=== PATIENT | female | born 1975 ===

== ENCOUNTER → 2019-12-10 07:26 | Outpatient (BNVA) | payer OTHER, SELFPAY | PROVIDERS: PCP Internal Medicine; Referring Provider Internal Medicine; Visit Provider Student in an Organized Health Care Education/Training Program | DX: M79.7 Fibromyalgia (principal) | CPT/HCPCS: 99214 ==

== ENCOUNTER 2020-01-01 17:05 | Emergency (ER) | payer OTHER, SELFPAY ==
[2020-01-01 17:21] VITALS: BP 151/66; PULSE 128; RESP 20; TEMP 36.9; O2SAT 98
--- NOTE | 2020-01-01 17:27 | ED.GENADULT ---
HPI - General Adult General Chief complaint: General Medical Stated complaint: Multiple complaints Time Seen by Provider: 01/01/20 17:18 Source: patient Mode of arrival: ambulatory Limitations: no limitations History of Present Illness HPI narrative: Patient comes to emergency room complaining of not feeling well since yesterday, nonspecific. This morning, patient had 7 episodes of diarrhea, no vomiting, patient feeling nauseous, no abdominal pain. Patient denies fever, no cough. MD complaint: Diarrhea Related Data Home Medications Medication Instructions Recorded Confirmed albuterol sulfate 2.5 mg INHALATION QID 12/10/19 12/31/19 artifi.tears(hypromellose)(PF) 0.3 1 drp OPHTHALMIC-RIGHT Q4-6H PRN 12/10/19 12/31/19 % eye drops ascorbate calcium (vitamin C) 500 500 mg PO DAILY 12/10/19 12/31/19 mg tablet canagliflozin 300 mg tablet 300 mg PO DAILY 12/10/19 12/31/19 cetirizine 10 mg capsule 10 mg PO DAILY 12/10/19 12/31/19 diclofenac sodium 75 mg 75 mg PO BID 12/10/19 12/31/19 tablet,delayed release docusate sodium 100 mg capsule 100 mg PO DAILY 12/10/19 12/31/19 hydrochlorothiazide 25 mg tablet 25 mg PO DAILY 12/10/19 12/31/19 lisinopril 5 mg tablet 5 mg PO DAILY 12/10/19 12/31/19 nortriptyline 10 mg capsule 10 mg PO BEDTIME 12/10/19 12/31/19 pantoprazole 40 mg tablet,delayed 40 mg PO DAILY 12/10/19 12/31/19 release sennosides 8.6 mg capsule 8.6 mg PO BEDTIME 12/10/19 12/31/19 topiramate 100 mg tablet 100 mg PO BID 12/10/19 12/31/19 trazodone 100 mg tablet 100 mg PO BEDTIME PRN 12/10/19 12/31/19 buspirone 1 tab PO TID 12/31/19 12/31/19 cholecalciferol (vitamin D3) 1 cap PO DAILY 12/31/19 12/31/19 citalopram 1 tab PO DAILY 12/31/19 12/31/19 citalopram 1 tab PO DAILY 12/31/19 12/31/19 fluticasone propionate 1 spray INTRANASAL 12/31/19 hydroxyzine HCl 1 - 2 tab PO QID 12/31/19 12/31/19 insulin lispro [Admelog U-100 0 - 100 unit SUBCUT DAILY 12/31/19 12/31/19 Insulin lispro] insulin regular hum U-500 conc 200 unit SUBCUT DAILY 12/31/19 12/31/19 [Humulin R U-500 (Conc) Insulin] montelukast 1 tab PO DAILY 12/31/19 12/31/19 oxycodone-acetaminophen 1 tab PO Q12H PRN 12/31/19 12/31/19 thiamine HCl (vitamin B1) 1 tab PO DAILY 12/31/19 12/31/19 vitamin A 1 cap PO DAILY 12/31/19 12/31/19 Previous Rx's Medication Instructions Recorded dulaglutide 1.5 mg/0.5 mL 1.5 mg SUBCUT QWEEK 30 Days #2.5 ml 12/22/19 subcutaneous pen injector loperamide [Anti-Diarrheal 2 mg PO Q6H PRN #10 cap 01/01/20 (loperamide)] ondansetron HCl [Zofran] 4 mg PO Q8H PRN #10 tab 01/01/20 Allergies Allergy/AdvReac Type Severity Reaction Status Date / Time adhesive tape [ADHESIVE TAPE] Allergy Intermediate RASH Verified 01/01/20 18:11 pioglitazone [From ACTOS] Allergy Intermediate VOMITING,ITCHY, Verified 01/01/20 18:11 pruritis, rash Review of Systems Review of Systems: Constitutional : No Weight loss, No Fever, complaining of chills, fatigue ENT/Mouth : No Hearing loss, No Ear Pain, No Nasal Congestion, No Sinus Pain, No Hoarseness, No sore throat, No Rhinorrhea, No Swallowing Difficulty Eyes: No Eye Pain, No Swelling, No Redness, No Foreign Body, No Discharge, No Vision Changes Cardiovascular : No Chest Pain, No SOB, No Dyspnea on Exertion, No Orthopnea, No Edema, No Palpitations Respiratory : No Cough, No Sputum, No Wheezing, No Smoke Exposure, No Dyspnea Gastrointestinal : Patient complaining of nausea, diarrhea, no vomiting. Denies constipation and denies abdominal Pain, No Hematochezia, No Melena Genitourinary : no irregular bleeding, No Dysuria, No Urinary Frequency, No Hematuria, No Urinary Incontinence, No Urgency, No Flank Pain, No Urinary Flow Changes, No Hesitancy Musculoskeletal : No joint pain, No Myalgias, No Joint Swelling Skin : No Skin Lesions, No rash Neuro : No Weakness, No Numbness, No Paresthesias, No Loss of Consciousness, No Dizziness, No Headache Psych : No Anxiety/Panic, No Depression, No SI/HI/AH/VH, No Social Issues, Heme/Lymph: No Bruising, No Bleeding,No Lymphadenopathy Endocrine : No Polyuria, No Polydipsia, No Temperature Intolerance [facility] Past Medical History Medical History Anxiety and depression Asthma Back pain Diabetes mellitus Fibromyalgia GERD (gastroesophageal reflux disease) History of Graves' disease Hyperlipidemia Hypertension Iron (Fe) deficiency anemia Lumbar degenerative disc disease Polyarthralgia Surgical History H/O gastric bypass History of carpal tunnel surgery of left wrist History of cataract extraction History of lumpectomy of left breast Hx laparoscopic cholecystectomy Hx of section Hx of colonoscopy Hx of esophagogastroduodenoscopy Social History Social History (Updated 12/10/19 @ 07:35 by Billy Fabian LPN) Household Members: Family Housing: House Alcohol intake: never Smoking Status: Never smoker Use of substances other than those prescribed or required for medical reasons: No Advance Directives: No Advance Directives Information Provided: No Physical Exam Vital Signs: Vital Signs: Last Vital Signs Temp 98.5 F 01/01/20 17:34 Pulse 120 H 01/01/20 17:34 Resp 18 01/01/20 17:34 BP 151/66 H 01/01/20 17:34 Pulse Ox 96 01/01/20 17:34 Body Mass Index 38.2 Appearance: Alert. Oriented X3. No acute distress. Patient has an insulin pump in place, current glucose 263 Eyes: Pupils equal, round and reactive to light. ENT: Pharynx normal. Neck: Normal inspection. Neck supple. No lymph nodes noted. No crepitus CVS: Normal heart rate and rhythm. Pulses normal. Normal S1 and S2 Respiratory: No respiratory distress. Breath sounds normal. No Wheezing. No rales Abdomen: Soft and nontender. No rigidity. No distention. good BS x4 Skin: Skin warm and dry. Normal skin color. Normal skin turgor. Extremities: No lower extremity edema. No lower extremity edema. No Lacerations. No Rash Neuro: Oriented X 3. No motor deficit. No sensory deficit. Moving all extermities. No slurred speech. Course Course Course Narrative: I discussed the labs with the patient, patient states she has no abdominal pain . Since she got here, she has not been nauseous, and has not had any diarrheal episodes. Patient was tested for COVID-19, the results will be available within 3 days. Patient's white blood cell count likely secondary to diarrheal illness, likely a viral infection. At this time, appendicitis and cholecystitis are not suspected, patient has no abdominal pain Medical Decision Making Lab Data Result diagrams: 01/01/20 17:47 01/01/20 18:13 Labs: Lab Results 01/01/20 01/01/20 01/01/20 Range/Units 17:47 17:47 18:03 WBC 14.4 H (4.8-10.8) X10*3/uL RBC 4.67 (4.20-5.50) X10*6/uL Hgb 12.8 (12.0-16.0) g/dl Hct 38.8 (37-47) % MCV 83.1 (80-98) fL MCH 27.4 (27.0-33.0) pg MCHC 33.0 (31.0-35.0) g/dl RDW 13.1 (11.0-16.0) % Plt Count 246 (160-400) X10*3/uL MPV 9.8 (9.4-12.3) fL Immature Gran % (Auto) 0.6 H (0.0-0.4) % Neut % (Auto) 90.4 H (45-73) % Lymph % (Auto) 4.2 L (20-40) % [place] % (Auto) 4.6 (2-11) % Eos % (Auto) 0.1 (0-4) % Baso % (Auto) 0.1 (0-2) % Lymph # (Auto) 0.6 L (1.2-4.9) X10*3/uL [place] # (Auto) 0.7 (0.1-1.2) X10*3/uL Eos # (Auto) 0.0 (0.0-0.4) X10*3/uL Baso # (Auto) 0.0 (0.0-0.2) X10*3/uL Abs Immat Gran (auto) 0.08 H (0.00-0.03) X10*3/uL Absolute Neuts (auto) 13.0 H (2.0-8.3) X10*3/uL Absolute Nucleated RBC 0.000 (0.0-0.012) X10*3/uL Nucleated RBC % (auto) 0.0 (0.0-0.2) /100WBC Smear Tech's Comments VERIFIED Sodium Cancelled Potassium Cancelled Chloride Cancelled Carbon Dioxide Cancelled Anion Gap Cancelled BUN Cancelled Creatinine Cancelled Estim Creat Clear Calc Cancelled Estimated GFR Cancelled Random Glucose Cancelled Calcium Cancelled Total Bilirubin Cancelled Direct Bilirubin Cancelled AST Cancelled ALT Cancelled Alkaline Phosphatase Cancelled Total Protein Cancelled Albumin Cancelled Lipase Cancelled Urine Color YELLOW Urine Appearance CLOUDY Urine pH 6.0 (5.0-8.0) Ur Specific [place] >= 1.030 H (1.005-1.025) Urine Protein 1+ H (NEG-TRACE) MG/DL Urine Glucose (UA) 250 H (NEG) MG/DL Urine Ketones 5 (NEG) MG/DL Urine Blood TRACE (NEG) Urine Nitrite NEG (NEG) Ur Leukocyte Esterase NEG (NEG) Urine RBC 0-2 (0) /HPF Urine WBC 0 (0-4) /HPF Ur Squamous Epith Cells 1+ /LPF Amorphous Sediment 4+ /LPF Urine Bacteria 1+ /LPF Urine Test NEGATIVE (NEGATIVE) 01/01/20 01/01/20 Range/Units 18:13 18:13 WBC (4.8-10.8) X10*3/uL RBC (4.20-5.50) X10*6/uL Hgb (12.0-16.0) g/dl Hct (37-47) % MCV (80-98) fL MCH (27.0-33.0) pg MCHC (31.0-35.0) g/dl RDW (11.0-16.0) % Plt Count (160-400) X10*3/uL MPV (9.4-12.3) fL Immature Gran % (Auto) (0.0-0.4) % Neut % (Auto) (45-73) % Lymph % (Auto) (20-40) % [place] % (Auto) (2-11) % Eos % (Auto) (0-4) % Baso % (Auto) (0-2) % Lymph # (Auto) (1.2-4.9) X10*3/uL [place] # (Auto) (0.1-1.2) X10*3/uL Eos # (Auto) (0.0-0.4) X10*3/uL Baso # (Auto) (0.0-0.2) X10*3/uL Abs Immat Gran (auto) (0.00-0.03) X10*3/uL Absolute Neuts (auto) (2.0-8.3) X10*3/uL Absolute Nucleated RBC (0.0-0.012) X10*3/uL Nucleated RBC % (auto) (0.0-0.2) /100WBC Smear Tech's Comments Sodium 132 L Potassium 4.2 Chloride 100 Carbon Dioxide 23 Anion Gap 13 BUN 11 Creatinine 0.81 Estim Creat Clear Calc 122.5 Estimated GFR > 60 Random Glucose 216 H Calcium 8.4 Total Bilirubin 0.5 Direct Bilirubin 0.2 AST 12 ALT 13 Alkaline Phosphatase 95 Total Protein 6.4 L Albumin 3.7 Lipase 7 L Urine Color Urine Appearance Urine pH (5.0-8.0) Ur Specific [place] (1.005-1.025) Urine Protein (NEG-TRACE) MG/DL Urine Glucose (UA) (NEG) MG/DL Urine Ketones (NEG) MG/DL Urine Blood (NEG) Urine Nitrite (NEG) Ur Leukocyte Esterase (NEG) Urine RBC (0) /HPF Urine WBC (0-4) /HPF Ur Squamous Epith Cells /LPF Amorphous Sediment /LPF Urine Bacteria /LPF Urine Test (NEGATIVE) Discharge Plan Discharge Clinical Impression: Diarrhea, Nausea Patient Disposition: Home, Self-Care Instructions: Acute Diarrhea (ED) Additional Instructions: You were tested for COVID-19, your results will be available within 72 hours, you will receive a phone call at home. Please follow-up with your primary care physician tomorrow. If you have any worsening or new symptoms, please return to the emergency room or call 911 Prescriptions: New ondansetron HCl [Zofran] 4 mg tablet 4 mg PO Q8H PRN (Reason: nausea and vomiting) Qty: 10 RF: 0 loperamide [Anti-Diarrheal (loperamide)] 2 mg capsule 2 mg PO Q6H PRN (Reason: loose stool) Qty: 10 RF: 0 No Action dulaglutide [Trulicity] 1.5 mg/0.5 mL pen injector 1.5 mg subcut QWEEK 30 Days Qty: 2.5 RF: 6 citalopram 10 mg tablet 1 tab PO DAILY RF: 0 citalopram 20 mg tablet 1 tab PO DAILY RF: 0 buspirone 10 mg tablet 1 tab PO TID RF: 0 insulin lispro [Admelog U-100 Insulin lispro] 100 unit/mL solution 0 - 100 unit subcut DAILY RF: 0 thiamine HCl (vitamin B1) 100 mg tablet 1 tab PO DAILY RF: 0 Humulin R U-500 (Conc) Insulin 500 unit/mL solution 200 unit subcut DAILY RF: 0 oxycodone-acetaminophen 5-325 mg tablet 1 tab PO Q12H PRN (Reason: pain) RF: 0 vitamin A 10,000 unit capsule 1 cap PO DAILY RF: 0 montelukast 10 mg tablet 1 tab PO DAILY RF: 0 hydroxyzine HCl 25 mg tablet 1 - 2 tab PO QID RF: 0 fluticasone propionate 50 mcg/actuation spray,suspension 1 spray intranasal RF: 0 cholecalciferol (vitamin D3) 125 mcg (5,000 unit) capsule 1 cap PO DAILY RF: 0 diclofenac sodium 75 mg tablet,delayed release (DR/EC) 75 mg PO BID RF: 0 artifi.tears(hypromellose)(PF) 0.3 % drops 1 drp ophthalmic-Right Q4-6H PRN (Reason: Dry Eyes) RF: 0 Invokana 300 mg tablet 300 mg PO DAILY RF: 0 senna 8.6 mg capsule 8.6 mg PO BEDTIME RF: 0 pantoprazole 40 mg tablet,delayed release (DR/EC) 40 mg PO DAILY RF: 0 ascorbate calcium (vitamin C) 500 mg tablet 500 mg PO DAILY RF: 0 hydrochlorothiazide 25 mg tablet 25 mg PO DAILY RF: 0 topiramate 100 mg tablet 100 mg PO BID RF: 0 albuterol sulfate 2.5 mg /3 mL (0.083 %) solution for nebulization 2.5 mg inhalation QID RF: 0 trazodone 100 mg tablet 100 mg PO BEDTIME PRN (Reason: Sleep) RF: 0 nortriptyline 10 mg capsule 10 mg PO BEDTIME RF: 0 Zyrtec 10 mg capsule 10 mg PO DAILY RF: 0 docusate sodium 100 mg capsule 100 mg PO DAILY RF: 0 lisinopril 5 mg tablet 5 mg PO DAILY RF: 0
[2020-01-01 17:34] VITALS: BP 151/66; PULSE 120; RESP 18; TEMP 36.9; O2SAT 96; BMI 38.2
[2020-01-01 17:54] LABS: Basophils Percent Auto 0.1 % (0-2); Eosinophils Percent Auto 0.1 % (0-4); Hematocrit 38.8 % (37-47); Hemoglobin 12.8 g/dl (12.0-16.0); Imm Gran Abs Auto 0.08 X10*3/uL (0.00-0.03); Imm Gran Pct Auto 0.6 % (0.0-0.4); Lymphocytes Absolute Auto 0.6 X10*3/uL (1.2-4.9); Lymphocytes Percent Auto 4.2 % (20-40); MANUAL DIFF FLAG SCAN; Mean Corpuscular Hemoglobin 27.4 pg (27.0-33.0); Mean Corpuscular Volume 83.1 fL (80-98); Mean Platelet Volume 9.8 fL (9.4-12.3); Monocytes Absolute Auto 0.7 X10*3/uL (0.1-1.2); Monocytes Percent Auto 4.6 % (2-11); Neutrophils Percent Auto 90.4 % (45-73); Platelet Count 246 X10*3/uL (160-400); Red Blood Count 4.67 X10*6/uL (4.20-5.50); Red Cell Distribution Width 13.1 % (11.0-16.0); SCAN SMEAR FLAG 1; White Blood Count 14.4 X10*3/uL (4.8-10.8)
[2020-01-01] MEDS: 0.9 % Sodium Chloride 1,000 ML 999 ML IVCONT (17:57)
[2020-01-01] MEDS: Loperamide HCl 2 MG CAPSULE 4 MG PO (17:57)
[2020-01-01] MEDS: ondansetron HCL 4 MG/2 ML VIAL IVPUSH (17:57)
--- NOTE | 2020-01-01 18:12 | PC.NURSE ---
patient a&ox3, iv inserted, labs drawn,urine obtained/covid swab obtained, medicated per order, ivf running per order, pt tachy [id number] notified, will continue to monitor.
[2020-01-01 18:19] LABS: UPreg QC Valid YES; Urine Pregnancy NEGATIVE (NEGATIVE)
[2020-01-01 18:19] LABS: SLIDE REVIEW VERIFIED
[2020-01-01 19:06] LABS: Appearance Urine CLOUDY; Color Urine YELLOW; Glucose Urine UA 250 MG/DL (NEG); Leukocyte Esterase Urine NEG (NEG); Nitrite Urine NEG (NEG); Specific Gravity - Urine >= 1.030 (1.005-1.025); Urine Blood TRACE (NEG); Urine Ketones 5 MG/DL (NEG); Urine Protein 1+ MG/DL (NEG-TRACE)
[2020-01-01 19:11] LABS: Anion Gap 13 (12-20); Blood Urea Nitrogen 11 mg/dL (9-16); Calcium 8.4 mg/dL (8.4-10.2); Carbon Dioxide 23 mmol/L (22-29); Chloride 100 mmol/L (96-108); Creatinine Clr Calc Pharmacy 122.5; Estimated Glomerular Filt Rate > 60; Glucose Random 216 mg/dL (60-115); Potassium 4.2 mmol/l (3.3-5.1); Sodium 132 mmol/L (135-145)
[2020-01-01 19:13] LABS: Amorphous Sediment Urine 4+ /LPF; Bacteria Urine 1+ /LPF; RBC Urine 0-2 /HPF (0); Squamous Epithelial Cell Urine 1+ /LPF; WBC Urine 0 /HPF (0-4)
[2020-01-01 19:14] LABS: Alanine Aminotransferase 13 U/L (0-31); Albumin Level 3.7 g/dL (3.5-5.0); Alkaline Phosphatase 95 U/L (39-117); Aspartate Amino Transferase 12 U/L (5-31); Bilirubin Direct 0.2 mg/dL (0.0-0.5); Bilirubin Total 0.5 mg/dL (0.0-1.0); Lipase 7 U/L (8-78); Total Protein 6.4 g/dL (6.5-8.0)
== END 2020-01-01 19:45 | disposition home or self-care (01) ==
PROVIDERS: Emergency Provider Emergency Medicine; PCP Internal Medicine
DX: R19.7 Diarrhea, unspecified (principal); R11.0 Nausea; Z20.828 Contact with and (suspected) exposure to other viral communicable diseases; Z79.899 Other long term (current) drug therapy
CPT/HCPCS: 36415; 80048; 80076; 81001; 81025; 83690; 85025; 96361; 96374; 99284; J2405; U0003

== ENCOUNTER 2020-01-03 09:17 | Emergency (ER) | payer OTHER, SELFPAY ==
[2020-01-03] VITALS (8 sets, daily range): BP systolic 100–128; BP diastolic 46–69; PULSE 80–100; RESP 16–19; TEMP 36.7–37.6; O2SAT 97–100; BMI 31.0
--- NOTE | 2020-01-03 09:45 | ED.NAVMDI ---
HPI - Nausea/Vomiting/Diarrhea General Chief complaint: Nausea/Vomiting/Diarrhea Stated complaint: diarrhea Time Seen by Provider: 01/03/20 09:38 Source: patient and spanish interpreter Mode of arrival: ambulatory Limitations: no limitations History of Present Illness HPI Narrative: 44-year-old female with a past medical history of GERD, asthma, fibromyalgia, hyperlipidemia, hypertension, diabetes and polyarthralgia here with nausea/vomiting/diarrhea/abdominal pain x 3 days. Seen here 12/31. Had labs, UA, COVID test. COVID test pending. Returns for persistent symptoms. Tells me between yesterday and today she has had more than 15 episodes of diarrhea. She has vomited 6 times. She has generalized abdominal discomfort. Emesis NBNB. No bloody or dark stools Feels lightheaded with position changes. no recent travel, no sick contact. No recent antibiotic use. MD elicited complaint: diarrhea Associated nausea: Yes Related Data Home Medications Medication Instructions Recorded Confirmed albuterol sulfate 2.5 mg INHALATION QID 12/10/19 12/31/19 artifi.tears(hypromellose)(PF) 0.3 1 drp OPHTHALMIC-RIGHT Q4-6H PRN 12/10/19 12/31/19 % eye drops ascorbate calcium (vitamin C) 500 500 mg PO DAILY 12/10/19 12/31/19 mg tablet canagliflozin 300 mg tablet 300 mg PO DAILY 12/10/19 12/31/19 cetirizine 10 mg capsule 10 mg PO DAILY 12/10/19 12/31/19 diclofenac sodium 75 mg 75 mg PO BID 12/10/19 12/31/19 tablet,delayed release docusate sodium 100 mg capsule 100 mg PO DAILY 12/10/19 12/31/19 hydrochlorothiazide 25 mg tablet 25 mg PO DAILY 12/10/19 12/31/19 lisinopril 5 mg tablet 5 mg PO DAILY 12/10/19 12/31/19 nortriptyline 10 mg capsule 10 mg PO BEDTIME 12/10/19 12/31/19 pantoprazole 40 mg tablet,delayed 40 mg PO DAILY 12/10/19 12/31/19 release sennosides 8.6 mg capsule 8.6 mg PO BEDTIME 12/10/19 12/31/19 topiramate 100 mg tablet 100 mg PO BID 12/10/19 12/31/19 trazodone 100 mg tablet 100 mg PO BEDTIME PRN 12/10/19 12/31/19 buspirone 1 tab PO TID 12/31/19 12/31/19 cholecalciferol (vitamin D3) 1 cap PO DAILY 12/31/19 12/31/19 citalopram 1 tab PO DAILY 12/31/19 12/31/19 citalopram 1 tab PO DAILY 12/31/19 12/31/19 fluticasone propionate 1 spray INTRANASAL 12/31/19 hydroxyzine HCl 1 - 2 tab PO QID 12/31/19 12/31/19 insulin lispro [Admelog U-100 0 - 100 unit SUBCUT DAILY 12/31/19 12/31/19 Insulin lispro] insulin regular hum U-500 conc 200 unit SUBCUT DAILY 12/31/19 12/31/19 [Humulin R U-500 (Conc) Insulin] montelukast 1 tab PO DAILY 12/31/19 12/31/19 thiamine HCl (vitamin B1) 1 tab PO DAILY 12/31/19 12/31/19 vitamin A 1 cap PO DAILY 12/31/19 12/31/19 Previous Rx's Medication Instructions Recorded dulaglutide 1.5 mg/0.5 mL 1.5 mg SUBCUT QWEEK 30 Days #2.5 ml 12/22/19 subcutaneous pen injector loperamide [Anti-Diarrheal 2 mg PO Q6H PRN #10 cap 01/01/20 (loperamide)] ondansetron HCl [Zofran] 4 mg PO Q8H PRN #10 tab 01/01/20 ondansetron 4 mg PO Q6-8H PRN #10 tab 01/03/20 oxycodone-acetaminophen 5 mg-325 1 tab PO Q12H PRN #30 tab 01/03/20 mg tablet Allergies Allergy/AdvReac Type Severity Reaction Status Date / Time adhesive tape [ADHESIVE TAPE] Allergy Intermediate RASH Verified 01/03/20 10:12 pioglitazone [From ACTOS] Allergy Intermediate VOMITING,ITCHY, Verified 01/03/20 10:12 pruritis, rash Review of Systems Review of Systems: Yes all other systems are reviewed and are negative Constitutional: Constitutional: Reports no additional constitutional complaints, Denies body ache(s), Denies chills, Denies fever(s), Denies headache(s) and Denies weakness Eyes: Eyes: Reports no additional eye complaints and Denies change in vision ENT: Reports system reviewed and no additional complaints, except as documented, Reports dizziness, Denies headache(s), Denies nasal congestion, Denies nasal discharge and Denies neck pain Cardiovascular: Cardiovascular: Reports no additional cardiovascular complaints, Denies chest pain, Denies leg edema and Denies dyspnea Respiratory: Respiratory: Reports no additional respiratory complaints, Denies cough and Denies dyspnea Gastrointestinal: Gastrointestinal: Reports no additional gastrointestinal complaints, Reports abdominal pain, Reports diarrhea, Reports nausea and Reports vomiting Genitourinary: Genitourinary: Reports no additional female genitourinary complaints and Denies urinary incontinence Musculoskeletal: Musculoskeletal: Reports no additional musculoskeletal complaints, Denies back pain, Denies arthralgias, Denies joint swelling, Denies neck pain, Denies numbness and Denies tingling Integumentary/Breasts: Skin/Breast: Reports system reviewed and no additional complaints, except as docu and Denies rash Neurologic: Reports system reviewed and no additional complaints, except as documented, Denies Abnormal speech present, Reports dizziness, Denies headache(s), Denies numbness, Denies tingling and Denies weakness PMFSH Past Medical History Source: obtained from family and nursing notes reviewed Medical History Anxiety and depression Asthma Back pain Diabetes mellitus Fibromyalgia GERD (gastroesophageal reflux disease) History of Graves' disease Hyperlipidemia Hypertension Iron (Fe) deficiency anemia Lumbar degenerative disc disease Polyarthralgia Surgical History H/O gastric bypass History of carpal tunnel surgery of left wrist History of cataract extraction History of lumpectomy of left breast Hx laparoscopic cholecystectomy Hx of section Hx of colonoscopy Hx of esophagogastroduodenoscopy Social History Social History Household Members: Family Housing: House Alcohol intake: unknown Smoking Status: Unknown if ever smoked Physical Exam Vital Signs: Vital Signs: Last Vital Signs Temp 98.5 F 01/03/20 16:03 Pulse 85 01/03/20 16:03 Resp 19 01/03/20 16:03 BP 113/61 01/03/20 16:03 Pulse Ox 100 01/03/20 16:03 Body Mass Index 31.0 Const: General: cooperative, healthy appearing, comfortable and no acute distress Orientation/consciousness: patient oriented x3 Limitations: no limitations HENMT: Head: Yes normal to inspection Ears: hearing grossly normal bilaterally General nose exam: Normal external nose present Face and sinus: Yes normal facial exam Mouth: Normal oral and palatal mucosa present Throat: Yes posterior oropharynx normal Eyes: General: appearance normal, both eyes and all related structures Pupils: Equal, round and reactive pupils present Neck: Neck: Yes normal visual inspection Chest: Chest palpation & inspection: normal inspection of the chest Resp: Effort & Inspection: normal respiratory effort Auscultation: clear to auscultation bilaterally Cardio: Rate: regular rate Rhythm: regular rhythm Peripheral pulses: Peripheral pulses 2+ throughout GI: Other: no focal abdominal pain Inspection: Yes normal to inspection Palpation (GI): Soft to palpation and nontender Auscultation: normal bowel sounds Back/Spine/Pelvis: Thoracic/Lumbar Spine: thoracic and lumbar spine normal to inspection Skin: General skin exam: no rashes or lesions noted Neuro: General: patient oriented x3, no focal motor deficits and normal sensation to monofilament Cranial nerves: Yes Equal, round and reactive pupils present Cognition (Neuro): normal cognition Speech: No Abnormal speech present Gait exam (Neuro): Normal gait present Motor exam (neuro): 5/5 motor strength present throughout Extrem: General: Yes normal to inspection Course Course Course Narrative: 44-year-old female here with generalized abdominal discomfort, vomiting, diarrhea, and feeling lightheaded with position changes for the last 2 days. Seen here in the emergency department and had labs, COVID test which is pending. On exam no focal tenderness in the abdomen. , mild diffuse tenderness. Will check labs, stool studies, UA. Give IV fluids, antiemetic, p.o. meds for discomfort. Check orthostatics. 1455- labs show evidence of mild dehydration. These are repeated after 2 L of normal saline with improvement. On discharge the patient is tolerating shaw gene and crackers. We did send stool studies and these are not resulted yet. I discussed with the patient that we should wait to describe antibiotics until we know if the stool culture is. I also discussed with her we do not recommend giving antidiarrhea medications as this can have bad side effects. We discussed replacing her fluids very vigorously while having diarrhea. Discussed brat diet. Discussed supportive care. Reviewed worrisome signs and symptoms and when to return to the emergency department. Comfortable with discharge home. MDM - Nausea/Vomiting/Diarrhea MDM Narrative Medical decision making narrative: Infectious diarrhea, gastroenteritis, viral infection, C diff infection, Medical Records Attestation: I reviewed the patient's medical records. Lab Data Attestation: I reviewed the patient's lab results. Result diagrams: 01/03/20 10:18 01/03/20 14:53 Labs: Lab Results 01/03/20 01/03/20 01/03/20 Range/Units 10:18 10:18 10:18 WBC 7.8 (4.8-10.8) X10*3/uL RBC 4.73 (4.20-5.50) X10*6/uL Hgb 12.8 (12.0-16.0) g/dl Hct 38.3 (37-47) % MCV 81.0 (80-98) fL MCH 27.1 (27.0-33.0) pg MCHC 33.4 (31.0-35.0) g/dl RDW 12.7 (11.0-16.0) % Plt Count 234 (160-400) X10*3/uL MPV 10.3 (9.4-12.3) fL Immature Gran % (Auto) Cancelled Neut % (Auto) Cancelled Lymph % (Auto) Cancelled [place] % (Auto) Cancelled Eos % (Auto) Cancelled Baso % (Auto) Cancelled Lymph # (Auto) Cancelled [place] # (Auto) Cancelled Eos # (Auto) Cancelled Baso # (Auto) Cancelled Abs Immat Gran (auto) Cancelled Absolute Neuts (auto) Cancelled Absolute Nucleated RBC 0.000 (0.0-0.012) X10*3/uL Nucleated RBC % (auto) 0.0 (0.0-0.2) /100WBC Neutrophils % (Manual) 49 (45-73) % Band Neutrophils % 22 H (3-5) % Lymphocytes % (Manual) 15 L (20-40) % Monocytes % (Manual) 14 H (2-11) % Abs Neuts (Manual) 5.5 (2.2-7.9) X10*3/uL Lymphocytes # (Manual) 1.2 (0.6-4.8) X10*3/uL Monocytes # (Manual) 1.1 (0.0-1.2) X10*3/uL Toxic Vacuolation PRESENT Dohle Bodies PRESENT Platelet Estimate NORMAL (NORMAL) Plt Morphology Comment NORMAL RBC Morphology NORMAL PT 13.3 H (10.8-13.0) SEC INR 1.1 (0.9-1.1) Sodium 129 L (135-145) mmol/L Potassium 3.4 (3.3-5.1) mmol/l Chloride 99 (96-108) mmol/L Carbon Dioxide 18 L (22-29) mmol/L Anion Gap 15 (12-20) BUN 19 H D (9-16) mg/dL Creatinine 1.34 (0.5-1.4) mg/dL Estim Creat Clear Calc 66.5 Estimated GFR 43 Random Glucose 244 H (60-115) mg/dL Calcium 8.4 (8.4-10.2) mg/dL Magnesium 1.8 (1.6-2.6) mg/dL Total Bilirubin 0.5 (0.0-1.0) mg/dL Direct Bilirubin 0.3 (0.0-0.5) mg/dL AST 18 D (5-31) U/L ALT 15 (0-31) U/L Alkaline Phosphatase 86 (39-117) U/L Total Protein 6.5 (6.5-8.0) g/dL Albumin 3.8 (3.5-5.0) g/dL Lipase (8-78) U/L Urine Color Urine Appearance Urine pH (5.0-8.0) Ur Specific [place] (1.005-1.025) Urine Protein (NEG-TRACE) MG/DL Urine Glucose (UA) (NEG) MG/DL Urine Ketones (NEG) MG/DL Urine Blood (NEG) Urine Nitrite (NEG) Ur Leukocyte Esterase (NEG) Urine RBC (0) /HPF Urine WBC (0-4) /HPF Ur Squamous Epith Cells /LPF Urine Bacteria /LPF Epithelial Casts /LPF Hyaline Casts /LPF Granular Casts /LPF Urine Mucus /LPF Urine Test (NEGATIVE) Stool Leukocytes, Qual (NEGATIVE) C. difficile Toxin A&B (Negative) C. difficile Antigen (Negative) C. difficile Interpret 01/03/20 01/03/20 01/03/20 Range/Units 10:18 11:30 11:30 WBC (4.8-10.8) X10*3/uL RBC (4.20-5.50) X10*6/uL Hgb (12.0-16.0) g/dl Hct (37-47) % MCV (80-98) fL MCH (27.0-33.0) pg MCHC (31.0-35.0) g/dl RDW (11.0-16.0) % Plt Count (160-400) X10*3/uL MPV (9.4-12.3) fL Immature Gran % (Auto) Neut % (Auto) Lymph % (Auto) [place] % (Auto) Eos % (Auto) Baso % (Auto) Lymph # (Auto) [place] # (Auto) Eos # (Auto) Baso # (Auto) Abs Immat Gran (auto) Absolute Neuts (auto) Absolute Nucleated RBC (0.0-0.012) X10*3/uL Nucleated RBC % (auto) (0.0-0.2) /100WBC Neutrophils % (Manual) (45-73) % Band Neutrophils % (3-5) % Lymphocytes % (Manual) (20-40) % Monocytes % (Manual) (2-11) % Abs Neuts (Manual) (2.2-7.9) X10*3/uL Lymphocytes # (Manual) (0.6-4.8) X10*3/uL Monocytes # (Manual) (0.0-1.2) X10*3/uL Toxic Vacuolation Dohle Bodies Platelet Estimate (NORMAL) Plt Morphology Comment RBC Morphology PT (10.8-13.0) SEC INR (0.9-1.1) Sodium (135-145) mmol/L Potassium (3.3-5.1) mmol/l Chloride (96-108) mmol/L Carbon Dioxide (22-29) mmol/L Anion Gap (12-20) BUN (9-16) mg/dL Creatinine (0.5-1.4) mg/dL Estim Creat Clear Calc Estimated GFR Random Glucose (60-115) mg/dL Calcium (8.4-10.2) mg/dL Magnesium (1.6-2.6) mg/dL Total Bilirubin (0.0-1.0) mg/dL Direct Bilirubin (0.0-0.5) mg/dL AST (5-31) U/L ALT (0-31) U/L Alkaline Phosphatase (39-117) U/L Total Protein (6.5-8.0) g/dL Albumin (3.5-5.0) g/dL Lipase < 4 L (8-78) U/L Urine Color Urine Appearance Urine pH (5.0-8.0) Ur Specific [place] (1.005-1.025) Urine Protein (NEG-TRACE) MG/DL Urine Glucose (UA) (NEG) MG/DL Urine Ketones (NEG) MG/DL Urine Blood (NEG) Urine Nitrite (NEG) Ur Leukocyte Esterase (NEG) Urine RBC (0) /HPF Urine WBC (0-4) /HPF Ur Squamous Epith Cells /LPF Urine Bacteria /LPF Epithelial Casts /LPF Hyaline Casts /LPF Granular Casts /LPF Urine Mucus /LPF Urine Test (NEGATIVE) Stool Leukocytes, Qual MANY: >10/OIF (NEGATIVE) C. difficile Toxin A&B Negative (Negative) C. difficile Antigen Negative (Negative) C. difficile Interpret SEE NOTE 01/03/20 01/03/20 Range/Units 13:39 14:53 WBC (4.8-10.8) X10*3/uL RBC (4.20-5.50) X10*6/uL Hgb (12.0-16.0) g/dl Hct (37-47) % MCV (80-98) fL MCH (27.0-33.0) pg MCHC (31.0-35.0) g/dl RDW (11.0-16.0) % Plt Count (160-400) X10*3/uL MPV (9.4-12.3) fL Immature Gran % (Auto) Neut % (Auto) Lymph % (Auto) [place] % (Auto) Eos % (Auto) Baso % (Auto) Lymph # (Auto) [place] # (Auto) Eos # (Auto) Baso # (Auto) Abs Immat Gran (auto) Absolute Neuts (auto) Absolute Nucleated RBC (0.0-0.012) X10*3/uL Nucleated RBC % (auto) (0.0-0.2) /100WBC Neutrophils % (Manual) (45-73) % Band Neutrophils % (3-5) % Lymphocytes % (Manual) (20-40) % Monocytes % (Manual) (2-11) % Abs Neuts (Manual) (2.2-7.9) X10*3/uL Lymphocytes # (Manual) (0.6-4.8) X10*3/uL Monocytes # (Manual) (0.0-1.2) X10*3/uL Toxic Vacuolation Dohle Bodies Platelet Estimate (NORMAL) Plt Morphology Comment RBC Morphology PT (10.8-13.0) SEC INR (0.9-1.1) Sodium 132 L (135-145) mmol/L Potassium 3.5 (3.3-5.1) mmol/l Chloride 102 (96-108) mmol/L Carbon Dioxide 20 L (22-29) mmol/L Anion Gap 14 (12-20) BUN 17 H (9-16) mg/dL Creatinine 1.07 (0.5-1.4) mg/dL Estim Creat Clear Calc 83.2 Estimated GFR 56 Random Glucose 175 H (60-115) mg/dL Calcium 7.6 L D (8.4-10.2) mg/dL Magnesium (1.6-2.6) mg/dL Total Bilirubin (0.0-1.0) mg/dL Direct Bilirubin (0.0-0.5) mg/dL AST (5-31) U/L ALT (0-31) U/L Alkaline Phosphatase (39-117) U/L Total Protein (6.5-8.0) g/dL Albumin (3.5-5.0) g/dL Lipase (8-78) U/L Urine Color DARK YELLOW Urine Appearance HAZY Urine pH 6.0 (5.0-8.0) Ur Specific [place] 1.025 (1.005-1.025) Urine Protein 1+ H (NEG-TRACE) MG/DL Urine Glucose (UA) NEG (NEG) MG/DL Urine Ketones 15 (NEG) MG/DL Urine Blood 3+ H (NEG) Urine Nitrite NEG (NEG) Ur Leukocyte Esterase TRACE H (NEG) Urine RBC 50-75 H (0) /HPF Urine WBC 1-4 (0-4) /HPF Ur Squamous Epith Cells 2+ /LPF Urine Bacteria TRACE /LPF Epithelial Casts 0-2 /LPF Hyaline Casts 0-2 /LPF Granular Casts 5-9 /LPF Urine Mucus TRACE /LPF Urine Test NEGATIVE (NEGATIVE) Stool Leukocytes, Qual (NEGATIVE) C. difficile Toxin A&B (Negative) C. difficile Antigen (Negative) C. difficile Interpret Discharge Plan Discharge Clinical Impression: Gastroenteritis, Acute dehydration Patient Disposition: Home, Self-Care Instructions: Gastroenteritis (ED) Additional Instructions: With clear liquids and advance diet as tolerated. For every stool you have you need to replace this with fluids. Drink fluids like Gatorade and Powerade with such have a high electrolyte content. We will follow-up with you with your stool studies and prescribe additional medications as needed. Prescriptions: New ondansetron 4 mg tablet,disintegrating 4 mg PO Q6-8H PRN (Reason: nausea and vomiting) Qty: 10 RF: 0 No Action dulaglutide [Trulicity] 1.5 mg/0.5 mL pen injector 1.5 mg subcut QWEEK 30 Days Qty: 2.5 RF: 6 oxycodone-acetaminophen 5-325 mg tablet 1 tab PO Q12H PRN (Reason: pain) Qty: 30 RF: 0 citalopram 10 mg tablet 1 tab PO DAILY RF: 0 citalopram 20 mg tablet 1 tab PO DAILY RF: 0 buspirone 10 mg tablet 1 tab PO TID RF: 0 insulin lispro [Admelog U-100 Insulin lispro] 100 unit/mL solution 0 - 100 unit subcut DAILY RF: 0 thiamine HCl (vitamin B1) 100 mg tablet 1 tab PO DAILY RF: 0 Humulin R U-500 (Conc) Insulin 500 unit/mL solution 200 unit subcut DAILY RF: 0 vitamin A 10,000 unit capsule 1 cap PO DAILY RF: 0 montelukast 10 mg tablet 1 tab PO DAILY RF: 0 hydroxyzine HCl 25 mg tablet 1 - 2 tab PO QID RF: 0 fluticasone propionate 50 mcg/actuation spray,suspension 1 spray intranasal RF: 0 cholecalciferol (vitamin D3) 125 mcg (5,000 unit) capsule 1 cap PO DAILY RF: 0 ondansetron HCl [Zofran] 4 mg tablet 4 mg PO Q8H PRN (Reason: nausea and vomiting) Qty: 10 RF: 0 loperamide [Anti-Diarrheal (loperamide)] 2 mg capsule 2 mg PO Q6H PRN (Reason: loose stool) Qty: 10 RF: 0 diclofenac sodium 75 mg tablet,delayed release (DR/EC) 75 mg PO BID RF: 0 artifi.tears(hypromellose)(PF) 0.3 % drops 1 drp ophthalmic-Right Q4-6H PRN (Reason: Dry Eyes) RF: 0 Invokana 300 mg tablet 300 mg PO DAILY RF: 0 senna 8.6 mg capsule 8.6 mg PO BEDTIME RF: 0 pantoprazole 40 mg tablet,delayed release (DR/EC) 40 mg PO DAILY RF: 0 ascorbate calcium (vitamin C) 500 mg tablet 500 mg PO DAILY RF: 0 hydrochlorothiazide 25 mg tablet 25 mg PO DAILY RF: 0 topiramate 100 mg tablet 100 mg PO BID RF: 0 albuterol sulfate 2.5 mg /3 mL (0.083 %) solution for nebulization 2.5 mg inhalation QID RF: 0 trazodone 100 mg tablet 100 mg PO BEDTIME PRN (Reason: Sleep) RF: 0 nortriptyline 10 mg capsule 10 mg PO BEDTIME RF: 0 Zyrtec 10 mg capsule 10 mg PO DAILY RF: 0 docusate sodium 100 mg capsule 100 mg PO DAILY RF: 0 lisinopril 5 mg tablet 5 mg PO DAILY RF: 0 Referrals: Analilia Chaidez MD [Primary Care Provider] - 2 days Interventions: ED Discharge Assessment Last Done: 01/03/20 16:02 Discharge Date/Time: 01/03/20 16:04
[2020-01-03] MEDS: Dicyclomine HCl 10 MG CAPSULE PO (10:27)
[2020-01-03] MEDS: ondansetron HCL 4 MG/2 ML VIAL IVPUSH (10:27)
[2020-01-03] MEDS: 0.9 % Sodium Chloride 1,000 ML 999 ML IV ×2 (10:27→11:32)
[2020-01-03] MEDS: Famotidine/PF 20 MG/2 ML VIAL IVPUSH (10:27)
[2020-01-03 10:34] LABS: Hematocrit 38.3 % (37-47); Hemoglobin 12.8 g/dl (12.0-16.0); Mean Corpuscular HGB Conc 33.4 g/dl (31.0-35.0); Mean Corpuscular Hemoglobin 27.1 pg (27.0-33.0); Mean Platelet Volume 10.3 fL (9.4-12.3); Platelet Count 234 X10*3/uL (160-400); Red Blood Count 4.73 X10*6/uL (4.20-5.50); Red Cell Distribution Width 12.7 % (11.0-16.0); White Blood Count 7.8 X10*3/uL (4.8-10.8)
[2020-01-03 10:42] LABS: INTERNATIONAL NORM RATIO 1.1 (0.9-1.1); Prothrombin Time 13.3 SEC (10.8-13.0)
[2020-01-03 10:52] LABS: Alanine Aminotransferase 15 U/L (0-31); Albumin Level 3.8 g/dL (3.5-5.0); Alkaline Phosphatase 86 U/L (39-117); Anion Gap 15 (12-20); Aspartate Amino Transferase 18 U/L (5-31); Bilirubin Direct 0.3 mg/dL (0.0-0.5); Bilirubin Total 0.5 mg/dL (0.0-1.0); Blood Urea Nitrogen 19 mg/dL (9-16); Calcium 8.4 mg/dL (8.4-10.2); Carbon Dioxide 18 mmol/L (22-29); Chloride 99 mmol/L (96-108); Creatinine Clr Calc Pharmacy 66.5; Estimated Glomerular Filt Rate 43; Glucose Random 244 mg/dL (60-115); Magnesium 1.8 mg/dL (1.6-2.6); Potassium 3.4 mmol/l (3.3-5.1); Sodium 129 mmol/L (135-145); Total Protein 6.5 g/dL (6.5-8.0)
[2020-01-03 11:02] LABS: Band Neutrophils Percent 22 % (3-5); Lymphocytes Absolute Manual 1.2 X10*3/uL (0.6-4.8); Lymphocytes Percent Manual 15 % (20-40); Monocytes Absolute Manual 1.1 X10*3/uL (0.0-1.2); Monocytes Percent Manual 14 % (2-11); Neutrophils Absolute Manual 5.5 X10*3/uL (2.2-7.9); Neutrophils Percent Manual 49 % (45-73)
[2020-01-03 11:03] LABS: Dohle Bodies PRESENT; Platelet Estimate NORMAL (NORMAL); Platelet Morphology Comment NORMAL; RBC Morphology NORMAL; Toxic Vacuolation PRESENT
[2020-01-03 11:04] LABS: Lipase < 4 U/L (8-78)
--- NOTE | 2020-01-03 11:35 | PC.NURSE ---
resting supine. unlabored resp. skin pwd. denies abd pain but has whole body pain. achey. noone else sick at home. stool sent. additional fluids up. nausea is better.
[2020-01-03 12:43] LABS: Leukocytes Stool Qualitative MANY: >10/OIF (NEGATIVE)
[2020-01-03 12:44] LABS: CDIFF Ag Negative (Negative); CDIFF Internal ctrl Dots and bkg OK (V); CDiff Toxin Negative (Negative)
[2020-01-03 13:55] LABS: Glucose Urine UA NEG (NEG); Leukocyte Esterase Urine TRACE (NEG); Nitrite Urine NEG (NEG); Specific Gravity - Urine 1.025 (1.005-1.025); Urine Blood 3+ (NEG); Urine Ketones 15 MG/DL (NEG); Urine Protein 1+ MG/DL (NEG-TRACE)
[2020-01-03 13:58] LABS: Appearance Urine HAZY; Color Urine DARK YELLOW
[2020-01-03 14:00] LABS: UPreg QC Valid YES; Urine Pregnancy NEGATIVE (NEGATIVE)
[2020-01-03 14:14] LABS: Bacteria Urine TRACE /LPF; Epith (RTE) Cast 0-2 /LPF; Hyaline Casts Urine 0-2 /LPF; Mucus Urine TRACE /LPF; RBC Urine 50-75 /HPF (0); Squamous Epithelial Cell Urine 2+ /LPF
[2020-01-03 15:35] LABS: Anion Gap 14 (12-20); Blood Urea Nitrogen 17 mg/dL (9-16); Calcium 7.6 mg/dL (8.4-10.2); Carbon Dioxide 20 mmol/L (22-29); Chloride 102 mmol/L (96-108); Creatinine Clr Calc Pharmacy 83.2; Estimated Glomerular Filt Rate 56; Glucose Random 175 mg/dL (60-115); Potassium 3.5 mmol/l (3.3-5.1); Sodium 132 mmol/L (135-145)
== END 2020-01-03 16:04 | disposition home or self-care (01) ==
PROVIDERS: Nurse Practitioner Family; Emergency Provider Emergency Medicine; PCP Internal Medicine
DX: K52.9 Noninfective gastroenteritis and colitis, unspecified (principal); E86.0 Dehydration; R11.2 Nausea with vomiting, unspecified; Z79.899 Other long term (current) drug therapy; Z20.828 Contact with and (suspected) exposure to other viral communicable diseases
CPT/HCPCS: 36415; 80048; 80076; 81001; 81025; 83690; 83735; 85007; 85027; 85610; 87045; 87046; 87086; 87177; 87209; 87324; 87449; 89055; 96361; 96374; 96375; 99284; J2405

== ENCOUNTER → 2020-01-12 08:27 | Outpatient (BNVA) | payer OTHER, SELFPAY | PROVIDERS: PCP Internal Medicine; Referring Provider Internal Medicine; Visit Provider Internal Medicine Endocrinology, Diabetes & Metabolism | DX: E11.65 Type 2 diabetes mellitus with hyperglycemia (principal); E11.42 Type 2 diabetes mellitus with diabetic polyneuropathy; E11.21 Type 2 diabetes mellitus with diabetic nephropathy; E11.3599 Type 2 diabetes mellitus with proliferative diabetic retinopathy without macular edema, unspecified eye; Z96.41 Presence of insulin pump (external) (internal); I10 Essential (primary) hypertension; E78.2 Mixed hyperlipidemia; E06.3 Autoimmune thyroiditis; E66.9 Obesity, unspecified; Z98.84 Bariatric surgery status | CPT/HCPCS: 82947; 99212 ==

== ENCOUNTER 2020-01-12 10:06 | Outpatient (REF) | payer OTHER, SELFPAY ==
[2020-01-12 11:22] LABS: Alanine Aminotransferase 16 U/L (0-31); Albumin Level 3.6 g/dL (3.5-5.0); Alkaline Phosphatase 80 U/L (39-117); Anion Gap 11 (12-20); Aspartate Amino Transferase 13 U/L (5-31); Bilirubin Total 0.3 mg/dL (0.0-1.0); Blood Urea Nitrogen 8 mg/dL (9-16); Calcium 8.5 mg/dL (8.4-10.2); Carbon Dioxide 26 mmol/L (22-29); Chloride 102 mmol/L (96-108); Cholesterol 140 mg/dL; Estimated Glomerular Filt Rate > 60; Glucose Random 80 mg/dL (60-115); HDL Cholesterol 43 mg/dL; LDL Cholesterol Calculated 61 mg/dl; Potassium 4.1 mmol/l (3.3-5.1); Sodium 135 mmol/L (135-145); Total Protein 6.3 g/dL (6.5-8.0); Triglycerides 181 mg/dL
[2020-01-12 11:47] LABS: Free T4 (Free Thyroxine) 1.02 ng/dL (0.71-1.85); Thyroid Stimulating Hormone 1.03 uIU/mL (0.32-4.0); Vitamin D 25-OH Total 17.1 ng/mL (>30)
== END 2020-01-12 10:07 | disposition home or self-care (01) ==
LOC: HO.10HDL 10:06
PROVIDERS: Visit Provider Internal Medicine Endocrinology, Diabetes & Metabolism
DX: E11.65 Type 2 diabetes mellitus with hyperglycemia (principal); Z79.4 Long term (current) use of insulin
CPT/HCPCS: 80053; 80061; 82306; 84439; 84443

== ENCOUNTER → 2020-01-24 12:37 | Outpatient (BNVA) | payer OTHER, SELFPAY | PROVIDERS: PCP Internal Medicine; Referring Provider Internal Medicine; Visit Provider Physician Assistant | DX: Z76.89 Persons encountering health services in other specified circumstances (principal) ==

== ENCOUNTER → 2020-01-27 12:49 | Outpatient (BNVA) | payer OTHER, SELFPAY | PROVIDERS: PCP Internal Medicine; Visit Provider Anesthesiology | DX: M47.817 Spondylosis without myelopathy or radiculopathy, lumbosacral region (principal); M47.814 Spondylosis without myelopathy or radiculopathy, thoracic region; E66.01 Morbid (severe) obesity due to excess calories | CPT/HCPCS: 20553; 99212; J3300 ==

== ENCOUNTER 2020-02-23 08:01 | Outpatient (REF) | payer OTHER, SELFPAY ==
--- NOTE | 2020-02-23 08:06 | MM_ITS ---
EXAMINATION: MM SCREENING DIGITAL BREAST TOMOSYNTHESIS, BILATERAL CLINICAL INFORMATION: Screening. Asymptomatic. The lifetime risk of breast cancer based on the Tyrer-Cuzick Model is 10%. COMPARISON: Mammography: 02/19/2019, 02/12/2018, 01/23/2017 TECHNIQUE: Digital breast tomosynthesis is performed in both the craniocaudal and mediolateral oblique views along with computer-aided detection (CAD). Synthesized 2D images are generated from the tomosynthesis. Additional bilateral CC views are provided. FINDINGS: There are scattered areas of fibroglandular density (ACR BI-RADS breast composition Category b). There are no significant masses, abnormal calcifications, or other abnormalities. Parenchymal pattern is similar to prior exam. No developing density. There are scattered small round, rim, predominantly dermal calcifications again seen greatest bilateral inferomedial breasts. No significant changes. MM/MM tomosynthesis screening BI IMPRESSION: No mammographic evidence of malignancy. ASSESSMENT: BI-RADS 2: Benign RECOMMENDATION: Routine annual mammography screening. This patient's information was entered into a reminder system with a target due date for their next mammogram.
== END 2020-02-23 08:02 | disposition home or self-care (01) ==
LOC: HO.MAMMO 08:01
PROVIDERS: PCP Internal Medicine; Visit Provider Internal Medicine
DX: Z12.31 Encounter for screening mammogram for malignant neoplasm of breast (principal)
CPT/HCPCS: 77063; 77067

== ENCOUNTER → 2020-04-07 10:55 | Outpatient (BNVA) | payer OTHER, SELFPAY | PROVIDERS: PCP Family Medicine; Visit Provider Internal Medicine Endocrinology, Diabetes & Metabolism | DX: E11.42 Type 2 diabetes mellitus with diabetic polyneuropathy (principal); E11.319 Type 2 diabetes mellitus with unspecified diabetic retinopathy without macular edema; E11.21 Type 2 diabetes mellitus with diabetic nephropathy; Z79.4 Long term (current) use of insulin; E78.2 Mixed hyperlipidemia; I10 Essential (primary) hypertension; E06.3 Autoimmune thyroiditis; E66.9 Obesity, unspecified | CPT/HCPCS: 82947; 99212 ==

== ENCOUNTER 2020-04-13 08:49 | Day surgery (SDC) | payer OTHER, SELFPAY ==
[2019-12-31 10:32] VITALS: BMI 38.4
--- NOTE | 2020-01-05 12:57 | P.CONAN_ITS ---
HPI - Anesthesia Eval Consult details Narrative: 44yo F for Colonoscopy Pt recently in ED x 2 for N/V/D. Covid swab pending. Pt to come in for procedure and have rapid swab done DOS if results not available per Rolan, systems accountant. [facility] Past Medical History Medical History (Updated 01/05/20 @ 12:59 by Tanya Hankins) Anxiety and depression Asthma Back pain Diabetes mellitus Fibromyalgia GERD (gastroesophageal reflux disease) History of Graves' disease Hyperlipidemia Hypertension Iron (Fe) deficiency anemia Lumbar degenerative disc disease Polyarthralgia Surgical History Surgical History H/O gastric bypass History of carpal tunnel surgery of left wrist History of cataract extraction History of lumpectomy of left breast Hx laparoscopic cholecystectomy Hx of section Hx of colonoscopy Hx of esophagogastroduodenoscopy Social History Social History Household Members: Family Housing: House Alcohol intake: unknown Smoking Status: Unknown if ever smoked Meds Allergies Allergy/AdvReac Type Severity Reaction Status Date / Time adhesive tape [ADHESIVE TAPE] Allergy Intermediate RASH Verified 01/03/20 10:12 pioglitazone [From ACTOS] Allergy Intermediate VOMITING,ITCHY, Verified 01/03/20 10:12 pruritis, rash Home Medications Medication Instructions Recorded Confirmed Type albuterol sulfate 2.5 mg INHALATION QID 12/10/19 12/31/19 History artifi.tears(hypromellose)(PF) 0.3 1 drp OPHTHALMIC-RIGHT Q4-6H PRN 12/10/19 12/31/19 History % eye drops ascorbate calcium (vitamin C) 500 500 mg PO DAILY 12/10/19 12/31/19 History mg tablet canagliflozin 300 mg tablet 300 mg PO DAILY 12/10/19 12/31/19 History cetirizine 10 mg capsule 10 mg PO DAILY 12/10/19 12/31/19 History diclofenac sodium 75 mg 75 mg PO BID 12/10/19 12/31/19 History tablet,delayed release docusate sodium 100 mg capsule 100 mg PO DAILY 12/10/19 12/31/19 History hydrochlorothiazide 25 mg tablet 25 mg PO DAILY 12/10/19 12/31/19 History lisinopril 5 mg tablet 5 mg PO DAILY 12/10/19 12/31/19 History nortriptyline 10 mg capsule 10 mg PO BEDTIME 12/10/19 12/31/19 History pantoprazole 40 mg tablet,delayed 40 mg PO DAILY 12/10/19 12/31/19 History release sennosides 8.6 mg capsule 8.6 mg PO BEDTIME 12/10/19 12/31/19 History topiramate 100 mg tablet 100 mg PO BID 12/10/19 12/31/19 History trazodone 100 mg tablet 100 mg PO BEDTIME PRN 12/10/19 12/31/19 History buspirone 1 tab PO TID 12/31/19 12/31/19 History cholecalciferol (vitamin D3) 1 cap PO DAILY 12/31/19 12/31/19 History citalopram 1 tab PO DAILY 12/31/19 12/31/19 History citalopram 1 tab PO DAILY 12/31/19 12/31/19 History fluticasone propionate 1 spray INTRANASAL 12/31/19 History hydroxyzine HCl 1 - 2 tab PO QID 12/31/19 12/31/19 History insulin lispro [Admelog U-100 0 - 100 unit SUBCUT DAILY 12/31/19 12/31/19 History Insulin lispro] insulin regular hum U-500 conc 200 unit SUBCUT DAILY 12/31/19 12/31/19 History [Humulin R U-500 (Conc) Insulin] montelukast 1 tab PO DAILY 12/31/19 12/31/19 History thiamine HCl (vitamin B1) 1 tab PO DAILY 12/31/19 12/31/19 History vitamin A 1 cap PO DAILY 12/31/19 12/31/19 History Exam Exam Date and Time: January 05, 2020 [facility] Height,Weight and Vital Signs: Height 5 ft 8 in Weight 114.7 kg Pertinent Lab Results Pertinent Lab Results: Laboratory Tests 01/03/20 01/03/20 10:18 14:53 WBC 7.8 Hgb 12.8 Hct 38.3 Plt Count 234 Sodium 132 L Potassium 3.5 Chloride 102 BUN 17 H Creatinine 1.07 Laboratory Tests 01/03/20 13:39 Urine Test NEGATIVE Laboratory Tests 01/03/20 11:30 C. difficile Toxin A&B Negative C. difficile Antigen Negative C. difficile Interpret SEE NOTE Assessment and Plan Assessment Anesthesia Assessment: Chart Reviewed
--- NOTE | 2020-04-12 09:24 | HO.ANESPROP2 ---
Documented by User: Tanya Londonney 04/12/20 09:27 HPI - Anesthesia Eval Consult details Narrative: 45yo F for Colonoscopy PMFSH Active Problems Active Problems: All Active Problems (Updated 04/10/20 @ 15:14 by Analilia Schumacher MD) Chronic fatigue (Acute) Carpal tunnel syndrome (Acute) Daytime hypersomnia (Acute) Autoimmune thyroiditis (Acute) Fibromyalgia (Acute) Morbid obesity (Acute) Spondylosis, thoracic, without myelopathy (Acute) Spondylosis of lumbosacral spine without myelopathy (Acute) Sessile colonic polyp (Acute) Obesity (Acute) Tracee's disease (Acute) [facility] (current) use of insulin (Acute) Diabetic nephropathy associated with type 2 diabetes mellitus (Acute) Diabetic retinopathy associated with type 2 diabetes mellitus (Acute) Diabetic polyneuropathy associated with type 2 diabetes mellitus (Acute) GERD (gastroesophageal reflux disease) (Acute) Asthma (Acute) Fibromyalgia (Acute) Hyperlipidemia (Acute) Hypertension (Acute) Diabetes mellitus (Acute) Polyarthralgia (Acute) Past Medical History Medical History (Updated 04/13/20 @ 10:31 by Megan Tarango) Anxiety and depression Asthma Autoimmune thyroiditis Back pain Carpal tunnel syndrome Chronic fatigue Daytime hypersomnia Diabetes mellitus Diabetic nephropathy associated with type 2 diabetes mellitus Diabetic polyneuropathy associated with type 2 diabetes mellitus Diabetic retinopathy associated with type 2 diabetes mellitus Fibromyalgia Fibromyalgia GERD (gastroesophageal reflux disease) Tracee's disease History of Graves' disease History of ulcer disease Hyperlipidemia Hypertension 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 Lumbar degenerative disc disease Morbid obesity Obesity Polyarthralgia Sessile colonic polyp 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, thoracic, without myelopathy Family History Family History Father Diabetes Hypertension Mother Diabetes Hypertension Maternal Grandmother Colon cancer Paternal Aunt Cancer of ear Surgical History Surgical History H/O gastric bypass History of carpal tunnel surgery of left wrist History of cataract extraction History of lumpectomy of left breast Hx laparoscopic cholecystectomy Hx of section Hx of colonoscopy Hx of esophagogastroduodenoscopy Social History Social History Household Members: Family Housing: House Alcohol intake: unknown Smoking Status: Former smoker Tobacco Type: Cigarette Smoking Quit Date: 2012 Use of substances other than those prescribed or required for medical reasons: No Advance Directives: No Advance Directives Information Provided: No Advance Directives on File: No Recently lost weight without trying: No Meds Allergies Allergy/AdvReac Type Severity Reaction Status Date / Time adhesive tape [ADHESIVE TAPE] Allergy Intermediate RASH Verified 04/10/20 14:58 pioglitazone [From ACTOS] Allergy Intermediate facial Verified 04/10/20 14:58 edema,rash Home Medications Medication Instructions Recorded Confirmed Last Taken Type albuterol sulfate 2.5 mg INHALATION QID 12/10/19 04/10/20 Unknown History artifi.tears(hypromellose)(PF) 0.3 1 drp OPHTHALMIC-RIGHT Q4-6H PRN 12/10/19 04/10/20 Unknown History % eye drops ascorbate calcium (vitamin C) 500 500 mg PO DAILY 12/10/19 04/10/20 Unknown History mg tablet diclofenac sodium 75 mg 75 mg PO BID 12/10/19 04/10/20 Unknown History tablet,delayed release docusate sodium 100 mg capsule 100 mg PO DAILY 12/10/19 04/10/20 Unknown History hydrochlorothiazide 25 mg tablet 25 mg PO DAILY 12/10/19 04/10/20 Unknown History lisinopril 5 mg tablet 5 mg PO DAILY 12/10/19 04/10/20 Unknown History nortriptyline 10 mg capsule 10 mg PO BEDTIME 12/10/19 04/10/20 Unknown History pantoprazole 40 mg tablet,delayed 40 mg PO DAILY 12/10/19 04/10/20 Unknown History release sennosides 8.6 mg capsule 8.6 mg PO BEDTIME 12/10/19 04/10/20 Unknown History trazodone 100 mg tablet 100 mg PO BEDTIME PRN 12/10/19 04/10/20 Unknown History buspirone 1 tab PO TID 12/31/19 04/10/20 Unknown History cholecalciferol (vitamin D3) 1 cap PO DAILY 12/31/19 04/10/20 Unknown History citalopram 1 tab PO DAILY 12/31/19 04/10/20 Unknown History citalopram 1 tab PO DAILY 12/31/19 04/10/20 Unknown History hydroxyzine HCl 1 - 2 tab PO QID 12/31/19 04/10/20 Unknown History insulin regular hum U-500 conc 200 unit SUBCUT DAILY 12/31/19 04/10/20 Unknown History [Humulin R U-500 (Conc) Insulin] thiamine HCl (vitamin B1) 1 tab PO DAILY 12/31/19 04/10/20 Unknown History vitamin A 1 cap PO DAILY 12/31/19 04/10/20 Unknown History Exam Exam Date and Time: April 12, 2020923 Height,Weight and Vital Signs: Height 5 ft 8 in Weight 114.7 kg Narrative Narrative: Echo 2019 Essentially nml study with mild LAE Assessment and Plan Assessment Anesthesia Assessment: Chart Reviewed Documented by User: Megan Tarango 04/13/20 10:31 HPI - Anesthesia Eval Consult details Narrative: Patient states here for EGD and Colonoscopy PMF Past Medical History Medical History (Updated 04/13/20 @ 10:31 by Megan Tarango) Anxiety and depression Asthma Autoimmune thyroiditis Back pain Carpal tunnel syndrome Chronic fatigue Daytime hypersomnia Diabetes mellitus Diabetic nephropathy associated with type 2 diabetes mellitus Diabetic polyneuropathy associated with type 2 diabetes mellitus Diabetic retinopathy associated with type 2 diabetes mellitus Fibromyalgia Fibromyalgia GERD (gastroesophageal reflux disease) Tracee's disease History of Graves' disease History of ulcer disease Hyperlipidemia Hypertension 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 Lumbar degenerative disc disease Morbid obesity Obesity Polyarthralgia Sessile colonic polyp 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, thoracic, without myelopathy Family History Family History Father Diabetes Hypertension Mother Diabetes Hypertension Maternal Grandmother Colon cancer Paternal Aunt Cancer of ear Family history of problems with anesthesia: No Surgical History Surgical History H/O gastric bypass History of carpal tunnel surgery of left wrist History of cataract extraction History of lumpectomy of left breast Hx laparoscopic cholecystectomy Hx of section Hx of colonoscopy Hx of esophagogastroduodenoscopy History of Problems with Anesthesia: No Social History Social History Household Members: Family Housing: House Alcohol intake: unknown Smoking Status: Former smoker Tobacco Type: Cigarette Smoking Quit Date: 2012 Use of substances other than those prescribed or required for medical reasons: No Advance Directives: No Advance Directives Information Provided: No Advance Directives on File: No Recently lost weight without trying: No Meds Allergies Allergy/AdvReac Type Severity Reaction Status Date / Time adhesive tape [ADHESIVE TAPE] Allergy Intermediate RASH Verified 04/10/20 14:58 pioglitazone [From ACTOS] Allergy Intermediate facial Verified 04/10/20 14:58 edema,rash Home Medications Medication Instructions Recorded Confirmed Last Taken Type albuterol sulfate 2.5 mg INHALATION QID 12/10/19 04/10/20 Unknown History artifi.tears(hypromellose)(PF) 0.3 1 drp OPHTHALMIC-RIGHT Q4-6H PRN 12/10/19 04/10/20 Unknown History % eye drops ascorbate calcium (vitamin C) 500 500 mg PO DAILY 12/10/19 04/10/20 Unknown History mg tablet diclofenac sodium 75 mg 75 mg PO BID 12/10/19 04/10/20 Unknown History tablet,delayed release docusate sodium 100 mg capsule 100 mg PO DAILY 12/10/19 04/10/20 Unknown History hydrochlorothiazide 25 mg tablet 25 mg PO DAILY 12/10/19 04/10/20 Unknown History lisinopril 5 mg tablet 5 mg PO DAILY 12/10/19 04/10/20 Unknown History nortriptyline 10 mg capsule 10 mg PO BEDTIME 12/10/19 04/10/20 Unknown History pantoprazole 40 mg tablet,delayed 40 mg PO DAILY 12/10/19 04/10/20 Unknown History release sennosides 8.6 mg capsule 8.6 mg PO BEDTIME 12/10/19 04/10/20 Unknown History trazodone 100 mg tablet 100 mg PO BEDTIME PRN 12/10/19 04/10/20 Unknown History buspirone 1 tab PO TID 12/31/19 04/10/20 Unknown History cholecalciferol (vitamin D3) 1 cap PO DAILY 12/31/19 04/10/20 Unknown History citalopram 1 tab PO DAILY 12/31/19 04/10/20 Unknown History citalopram 1 tab PO DAILY 12/31/19 04/10/20 Unknown History hydroxyzine HCl 1 - 2 tab PO QID 12/31/19 04/10/20 Unknown History insulin regular hum U-500 conc 200 unit SUBCUT DAILY 12/31/19 04/10/20 Unknown History [Humulin R U-500 (Conc) Insulin] thiamine HCl (vitamin B1) 1 tab PO DAILY 12/31/19 04/10/20 Unknown History vitamin A 1 cap PO DAILY 12/31/19 04/10/20 Unknown History Exam Height,Weight and Vital Signs: Vital Signs Temp Pulse Resp BP Pulse Ox 04/13/20 09:56 97.2 F 76 18 137/81 100 Pertinent Lab Results Pertinent Lab Results: Lab Results 04/13/20 04/13/20 Range/Units 09:20 09:41 POC Glucose 178 H (60-115) mg/dL Urine Test NEGATIVE (NEGATIVE) Airway Mallampati Class: II TM Dist: >3cm Neck ROM: Limited (Discomfort and radiculopathy) Loose/Missing/Broken Teeth: Yes (Molar extraction) Heart: RRR Lungs: CTAB Assessment and Plan Assessment Anesthesia Assessment: Anesthesia Plan Discussed and Chart Reviewed Final Anesthetic Review NPO: Yes ASA Class: III Final Preanesthetic Review: No Changes in Pt Med Stat, Meds/Allgs Chart Reviewed, Consent Obtained/Reviewed and Anes Risks/Benef Reviewed Patient Risk: Intermediate Procedure Risk: Low Assessment/Block/Sedation in SS: Assess/Block/Sedation-SS Anesthetic Plan Anesthetic Plan: MAC: Disposition: Standard PACU
[2020-04-13 09:44] LABS: UPreg QC Valid YES; Urine Pregnancy NEGATIVE (NEGATIVE)
[2020-04-13 09:45] LABS: Glucose, Whole Blood 178 mg/dL (60-115)
[2020-04-13 09:56] VITALS: BP 137/81; PULSE 76; RESP 18; TEMP 36.2; O2SAT 100
--- NOTE | 2020-04-13 10:32 | MHC.SHP ---
Pre-Procedural Eval Section B Chief Complaint: HX OF POLYPS Relevant Family History (Specify if Yes): No Relevant Social History: None Present Medications: see Short Stay Collaborative assessment Medical History: Significant History (Anxiety and depression Asthma Autoimmune thyroiditis Back pain Carpal tunnel syndrome Chronic fatigue Daytime hypersomnia Diabetes mellitus Diabetic nephropathy associated with type 2 diabetes mellitus Diabetic polyneuropathy associated with type 2 diabetes mellitus Diabetic retinopathy associated w) History of Previous Operations: Relevant previous surgery/procedure and date(s) (H/O gastric bypass History of carpal tunnel surgery of left wrist History of cataract extraction History of lumpectomy of left breast Hx laparoscopic cholecystectomy Hx of section Hx of colonoscopy Hx of esophagogastroduodenoscopy) Allergies: Allergies Allergy/AdvReac Type Severity Reaction Status Date / Time adhesive tape [ADHESIVE TAPE] Allergy Intermediate RASH Verified 04/10/20 14:58 pioglitazone [From ACTOS] Allergy Intermediate facial Verified 04/10/20 14:58 edema,rash Review of Systems Sugical H&P ROS: Negative: Constitution, Cardiovascular, Respiratory, Neurological, Psychiatric, Hem-Onc, Allergic/Immunologic, Gastrointestinal, Genitourinary, Musculoskeletal, Integumentary, Endocrine and Eyes/Ears/Nose/Throat Exam Surgical H&P Exam: Normal: HEENT, Normal: Heart, Normal: Lungs, Normal: Extremities, Normal: Abdomen, Normal: Skin and Normal: Neurological Plan Diagnosis/Plan: Unchanged I have reviewed the history and physical and performed a pertinent physical examination on my patient. No changes have occurred unless specified.
--- NOTE | 2020-04-13 10:35 | P.OP_ITS ---
Operative Note Operative Note Date of Service: 04/13/20 Narrative: Operative Information Procedure Description: EGD, Colonoscopy FLEXIBLE TRANSORAL UPPER GASTROINTESTINAL ENDOSCOPY AND COLONOSCOPY PROCEDURE NOTE UPPER ENDOSCOPY Consent: Indications for the procedure and potential complications of bleeding, perforation, reaction to medications and missed diagnosis were discussed with the patient and informed consent was obtained. Instrument: Olympus GIF H 190 J mid size upper endoscope Monitoring: Vital signs and clinical assessment, continuous EKG monitoring, Pulse oximetry, Carbon Dioxide monitoring and blood pressure monitoring were done throughout the procedure. Procedure: The patient was placed in the left lateral decubitis position and pre-procedure medications were administered and a bite block was placed. The endoscope was inserted into the mouth and advanced under direct vision to the third part of duodenum. A careful inspection was made as the upper endoscope was withdrawn including a retroflexed examination of the proximal stomach; Findings and interventions are described below. Hx of margaret en Y gastric bypass Findings: Larynx:normal Esophagus: GE junction at 38 cm, diaphragm hiatus at 40 cm, schatzki ring seen, bx taken from GEJ Stomach pouch: Mild scattered erythema. Biopsies were obtained. Grade 2 flap valve on retroflexed examination of the cardia. The G-J had inflammation around the anastomosis site, no ulceration or polyps noted, 4 retained fernando noted and were removed to prevent them from acting as foci for further ulceration and inflammation jejunum: Normal Intervention: Biopsies as noted above COLONOSCOPY Instrument: Olympus variable stiffness adult scope 190L Colonoscopy Monitoring: Vital signs and clinical assessment, continuous EKG monitoring, Pulse oximetry, Carbon Dioxide monitoring and blood pressure monitoring were done throughout the procedure. Colon withdrawal time was 13 minutes. Procedure: The patient was placed in the left lateral decubitis position and pre-procedure medications were administered. After a digital rectal examination of the ano-rectum, the video colonoscope was inserted into the rectum and advanced through the colon to the cecum/TI. The colonoscope was slowly withdrawn in a retrograde panoramic fashion and the colon mucosa was carefully examined including a retroflexed view of the rectum. Findings and interventions are described below. Procedure Difficulty:easy Findings: Terminal Ileum-normal Cecum:normal Ascending Colon: normal, prior site from polyp resection which had been tattooed noted, no residual polypoid tissue noted Transverse Colon -normal Descending Colon:normal Sigmoid Colon: normal Rectum: Retroflexion with small internal hemorrhoids, grade I Anorectum - normal Colon preparation: [place] Bowel Preparation Scale Right colon; 2 Transverse colon: 2 Left colon; 2 (0 = Unprepared colon segment with mucosa not seen due to solid stool that cannot be cleared. 1 = Portion of mucosa of the colon segment seen, but other areas of the colon segment not well seen due to staining, residual stool and/or opaque liquid. 2 = Minor amount of residual staining, small fragments of stool and/or opaque liquid, but mucosa of colon segment seen well. 3 = Entire mucosa of colon segment seen well with no residual staining, small fragments of stool or opaque liquid) Impression and Post Procedure Diagnosis: Endoscopy Findings: hiatal hernia schatzki ring retained fernando Colonoscopy Findings: internal hemorrhoids Plan: Await Pathology results Repeat Colonoscopy in 3 years or earlier if clinically indicated High fiber diet leaflet avoid straining at stool, epsom salts and sitz bath, anusol supps or cream prn avoid nsaid, avoid smoking if symptomatic from upper GI tract then PPI and caraftae optimization Above findings were reviewed with the patient and relevant handouts were provided if indicated.
--- NOTE | 2020-04-13 10:35 | PM.OP ---
Brief Operative Note Date of Service: 04/13/20 Pre-op diagnosis: hx of stomach polyp and colon polyp Post-op diagnosis: same Procedure: see op note Surgeon: Yazan Gallardo MD Anesthesia: MAC Estimated blood loss (mL): 0 Condition: stable Disposition: PACU
[2020-04-13 11:49] VITALS: BP 125/75; PULSE 84; RESP 20; TEMP 35.9; O2SAT 98
[2020-04-13 12:04] VITALS: BP 124/74; PULSE 79; RESP 20; O2SAT 97
--- NOTE | 2020-04-13 12:14 | PC.NURSE ---
1212 DR FLORES AT BS SPEAKING WITH PT THROUGH INTERPRETTOR RE RESULTS OF EXAM AND FU
[2020-04-13 12:19] VITALS: BP 141/78; PULSE 74; RESP 20; TEMP 36.2; O2SAT 100
--- NOTE | 2020-04-13 12:33 | PC.NURSE ---
1125 MONITORS AND IVF DCD ASST OOB CH STEADY DRESSED SELF AT BS CALL [facility]OSITO IN REACH PLAN TO AMB TO DC AREA
== END 2020-04-13 13:15 | disposition home or self-care (01) ==
PROVIDERS: Nurse Practitioner; PCP Internal Medicine; Visit Provider Internal Medicine Gastroenterology
PROC: 0DJD8ZZ Inspection of Lower Intestinal Tract, Via Natural or Artificial Opening Endoscopic (ICD-10-PCS; CPT 45378; principal; 2020-04-13 10:20)
DX: Z12.11 Encounter for screening for malignant neoplasm of colon (principal); Z86.010 Personal history of colon polyps; K64.0 First degree hemorrhoids; K29.50 Unspecified chronic gastritis without bleeding; K44.9 Diaphragmatic hernia without obstruction or gangrene; K22.2 Esophageal obstruction; M79.5 Residual foreign body in soft tissue; J45.909 Unspecified asthma, uncomplicated; Z98.84 Bariatric surgery status; Z98.0 Intestinal bypass and anastomosis status; I10 Essential (primary) hypertension; E11.9 Type 2 diabetes mellitus without complications; E11.21 Type 2 diabetes mellitus with diabetic nephropathy; E11.42 Type 2 diabetes mellitus with diabetic polyneuropathy; E11.319 Type 2 diabetes mellitus with unspecified diabetic retinopathy without macular edema; Z79.4 Long term (current) use of insulin; Z79.51 Long term (current) use of inhaled steroids; Z79.899 Other long term (current) drug therapy
CPT/HCPCS: 43247; 43239; 81025; 82947; 88305; 88342

== ENCOUNTER 2020-04-25 07:48 | Outpatient (REF) | payer OTHER, SELFPAY ==
[2020-04-25 09:21] LABS: Alanine Aminotransferase 22 U/L (0-31); Albumin Level 4.2 g/dL (3.5-5.0); Alkaline Phosphatase 105 U/L (39-117); Anion Gap 12 (12-20); Aspartate Amino Transferase 15 U/L (5-31); Bilirubin Total 0.7 mg/dL (0.0-1.0); Blood Urea Nitrogen 10 mg/dL (9-16); Calcium 8.9 mg/dL (8.4-10.2); Carbon Dioxide 26 mmol/L (22-29); Chloride 101 mmol/L (96-108); Cholesterol 194 mg/dL; Estimated Glomerular Filt Rate > 60; Glucose Fasting 216 mg/dL (60-99); HDL Cholesterol 60 mg/dL; LDL Cholesterol Calculated 102 mg/dl; Potassium 4.5 mmol/L (3.3-5.1); Sodium 134 mmol/L (135-145); Total Protein 7.3 g/dL (6.5-8.0); Triglycerides 161 mg/dL
[2020-04-25 09:44] LABS: TSH reflex Free T4 2.02 uIU/mL (0.32-4.0)
[2020-04-25 09:48] LABS: Folate 16.2 ng/mL (> or = 4.0); Vitamin B12 158 pg/mL (200-900)
[2020-04-29 10:36] LABS: Vitamin D 25-OH, D2 <4 ng/mL; Vitamin D 25-OH, D3 20 ng/mL; Vitamin D 25-OH, Total 20 ng/mL (30-100)
== END 2020-04-25 07:49 | disposition home or self-care (01) ==
LOC: HO.LAB 07:48
PROVIDERS: PCP Internal Medicine; Visit Provider Internal Medicine
DX: E11.65 Type 2 diabetes mellitus with hyperglycemia (principal); E78.5 Hyperlipidemia, unspecified; E06.3 Autoimmune thyroiditis; R53.82 Chronic fatigue, unspecified; E55.9 Vitamin D deficiency, unspecified; Z79.4 Long term (current) use of insulin
CPT/HCPCS: 36415; 80053; 80061; 82306; 82607; 82746; 84443

== ENCOUNTER → 2020-05-10 12:42 | Outpatient (BNVA) | payer OTHER, SELFPAY | PROVIDERS: PCP Internal Medicine; Visit Provider Orthopaedic Surgery | DX: G56.01 Carpal tunnel syndrome, right upper limb (principal) | CPT/HCPCS: 99202 ==

== ENCOUNTER → 2020-05-11 09:10 | Outpatient (BNVA) | payer OTHER, SELFPAY | PROVIDERS: PCP Internal Medicine; Visit Provider Physician Assistant ==

== ENCOUNTER 2020-06-06 13:55 | Outpatient (REF) | payer OTHER, SELFPAY ==
--- NOTE | ~2020-06-06 | US_ITS ---
EXAMINATION: US VENOUS ULTRASOUND WITH DOPPLER LOWER EXTREMITY, LEFT CLINICAL INFORMATION: Left leg pain. Evaluate for deep vein thrombosis. COMPARISON: None. TECHNIQUE: Ultrasound of the deep veins is performed from the hip to the calf with compression sonography and color and pulse Doppler assessment. Spectral analysis with color-flow imaging is performed. FINDINGS: There is normal venous compression and respiratory variation and augmented flow. The visualized common femoral vein, superficial femoral vein, profunda femoral vein, popliteal vein, and the trifurcation region shows no evidence of deep venous thrombosis. There is no significant popliteal fossa cyst. If the patient's symptoms persist, followup ultrasound in 5 days 7 days might be of value to exclude proximal propagation from a non-visualized calf vein. US/US venous duplex LE LT IMPRESSION: No DVT demonstrated in the left lower extremity.
== END 2020-06-06 13:56 | disposition home or self-care (01) ==
LOC: HO.US 13:55
PROVIDERS: PCP Internal Medicine; Visit Provider Internal Medicine
DX: M79.605 Pain in left leg (principal)
CPT/HCPCS: 93971

== ENCOUNTER 2020-06-15 12:26 | Day surgery (SDC) | payer OTHER, SELFPAY ==
[2020-06-15 08:16] VITALS: BMI 35.9
[2020-06-15 12:45] VITALS: BP 125/79; PULSE 93; RESP 16; TEMP 37.1; O2SAT 96
--- NOTE | 2020-06-15 13:11 | W.PM.OPN ---
Operative Note Operative Note Date of Service: 06/15/20 Narrative: Preop diagnosis: 1. Right Carpal tunnel syndrome Postop diagnosis: same Procedure: 1. Right Carpal tunnel release Surgeon: Socorro Busch MD Anesthesia: local block using 1% lidocaine with epinephrine Findings: Thickened transverse carpal ligament. EBL: Less than 5 mL Specimens: None Complications: None Disposition: Brought to recovery room in stable condition Plan: Follow-up for 7-10 days for wound check and suture removal Indications: The patient is 45 years old, with right carpal tunnel syndrome that has been unresponsive to nonoperative management. The risks and benefits of operative treatment including but not limited to risk of damage to blood vessels, nerves, tendons, infection, persistent pain, persistent symptoms, or possible need for additional surgery were discussed with the patient and the patient wishes to proceed with surgery. Procedure: Once consent was obtained a local block was performed using a combination of 1% lidocaine with epinephrine. The patient was then brought back to the operating suite and placed on the operative table in supine position. A tourniquet was applied to the proximal aspect of the right upper extremity and the limb was prepped and draped in a standard surgical fashion. Once assured that we had a good block, a 1.5 cm longitudinal incision was made centered over the carpal tunnel. The incision was made through the skin to the subcutaneous tissues using a #15 blade. Dissection was made down to the level of the transverse carpal ligament with care being taken to protect the palmar cutaneous nerve. Once the transverse carpal ligament was clearly visualized, a longitudinal incision was made in the transverse carpal ligament 1st using a #15 blade, then using tenotomy scissors under direct visualization. Care was taken to look for and protect the motor branch of the median nerve when seen in this area. Once satisfied with our carpal tunnel release the wound was copiously irrigated with normal saline and hemostasis was obtained with a brief period of local pressure. The skin edges were reapproximated with some 5.0 nylon suture material and a sterile dressing was applied. The patient appears to have tolerated the procedure well and with no complications. All digits were well vascularized at the conclusion of the case.
--- NOTE | 2020-06-15 14:29 | PC.NURSE ---
pt moved to pacu report given to twila rodriguez
--- NOTE | 2020-06-15 15:37 | MHC.SHP ---
Pre-Procedural Eval Section B Chief Complaint: carpal tunnel syndrome Allergies: Allergies Allergy/AdvReac Type Severity Reaction Status Date / Time adhesive tape [ADHESIVE TAPE] Allergy Intermediate RASH Verified 06/06/20 13:34 pioglitazone [From ACTOS] Allergy Intermediate facial Verified 06/06/20 13:34 edema,rash Plan I have reviewed the history and physical and performed a pertinent physical examination on my patient. No changes have occurred unless specified.
[2020-06-15 16:05] VITALS: BP 152/85; PULSE 83; RESP 18; TEMP 36.4; O2SAT 97
== END 2020-06-15 16:29 | disposition home or self-care (01) ==
PROVIDERS: PCP Internal Medicine; Visit Provider Orthopaedic Surgery
PROC: (CPT 64721; principal; 2020-06-15 14:10)
DX: G56.01 Carpal tunnel syndrome, right upper limb (principal); Z88.8 Allergy status to other drugs, medicaments and biological substances; R53.82 Chronic fatigue, unspecified; M79.7 Fibromyalgia; E06.3 Autoimmune thyroiditis; E11.21 Type 2 diabetes mellitus with diabetic nephropathy; E11.42 Type 2 diabetes mellitus with diabetic polyneuropathy; E11.319 Type 2 diabetes mellitus with unspecified diabetic retinopathy without macular edema; I10 Essential (primary) hypertension; D50.9 Iron deficiency anemia, unspecified; Z87.891 Personal history of nicotine dependence; Z79.4 Long term (current) use of insulin; Z79.899 Other long term (current) drug therapy
CPT/HCPCS: 64721

== ENCOUNTER → 2020-06-26 08:18 | Outpatient (BNVA) | payer OTHER, SELFPAY | PROVIDERS: PCP Internal Medicine; Visit Provider Orthopaedic Surgery | DX: G56.01 Carpal tunnel syndrome, right upper limb (principal) | CPT/HCPCS: 99212 ==

== ENCOUNTER → 2020-07-10 08:44 | Outpatient (BNVA) | payer OTHER, SELFPAY | PROVIDERS: PCP Internal Medicine; Visit Provider Internal Medicine Endocrinology, Diabetes & Metabolism | DX: E11.42 Type 2 diabetes mellitus with diabetic polyneuropathy (principal); E11.319 Type 2 diabetes mellitus with unspecified diabetic retinopathy without macular edema; E11.21 Type 2 diabetes mellitus with diabetic nephropathy; Z79.4 Long term (current) use of insulin; E78.2 Mixed hyperlipidemia; I10 Essential (primary) hypertension; E06.3 Autoimmune thyroiditis; E66.9 Obesity, unspecified | CPT/HCPCS: 82947; 99212 ==

== ENCOUNTER 2020-09-22 15:09 | Outpatient (REF) | payer OTHER, SELFPAY ==
--- NOTE | ~2020-09-22 | XR_ITS ---
EXAMINATION: XR ANKLE, LEFT CLINICAL INFORMATION: Pain COMPARISON: Previous x-ray October 2019 TECHNIQUE: AP, lateral, and mortise views of the left ankle. FINDINGS: Bone alignment is normal. No fracture or dislocation is seen. There is a small osteophyte along the anterior tibia at the tibiotalar joint. The ankle mortise is otherwise normal. There is a small calcaneal spur at the Achilles tendon insertion. There may be lateral soft tissue swelling. XR/XR ankle LT 2V IMPRESSION: Small anterior tibial osteophyte at the tibiotalar joint and calcaneal spur. Lateral soft tissue swelling.
== END 2020-09-22 15:10 | disposition home or self-care (01) ==
LOC: HO.XRAY 15:09
PROVIDERS: PCP Internal Medicine; Visit Provider Internal Medicine
DX: M25.572 Pain in left ankle and joints of left foot (principal)
CPT/HCPCS: 73600

== ENCOUNTER → 2020-10-23 08:39 | Outpatient (BNVA) | payer OTHER, SELFPAY | PROVIDERS: PCP Internal Medicine; Visit Provider Internal Medicine ==

== ENCOUNTER → 2020-11-06 10:04 | Outpatient (BNVA) | payer OTHER, SELFPAY | PROVIDERS: PCP Internal Medicine; Visit Provider Anesthesiology | DX: M47.817 Spondylosis without myelopathy or radiculopathy, lumbosacral region (principal); M47.814 Spondylosis without myelopathy or radiculopathy, thoracic region; E66.01 Morbid (severe) obesity due to excess calories | CPT/HCPCS: 99212 ==

== ENCOUNTER → 2020-11-07 08:56 | Outpatient (BNVA) | payer OTHER, SELFPAY | PROVIDERS: PCP Internal Medicine; Referring Provider Internal Medicine; Visit Provider Nurse Practitioner Family | DX: G47.19 Other hypersomnia (principal); R53.82 Chronic fatigue, unspecified | CPT/HCPCS: 99202 ==

== ENCOUNTER 2020-11-27 08:06 | Outpatient (REF) | payer OTHER, SELFPAY ==
[2020-11-27 08:53] LABS: Basophils Percent Auto 0.4 % (0-2); Eosinophils Absolute Auto 0.2 X10*3/uL (0.0-0.4); Eosinophils Percent Auto 2.5 % (0-4); Hematocrit 38.9 % (37-47); Hemoglobin 12.7 g/dl (12.0-16.0); Imm Gran Abs Auto 0.03 X10*3/uL (0.00-0.03); Imm Gran Pct Auto 0.4 % (0.0-0.4); Lymphocytes Absolute Auto 1.7 X10*3/uL (1.2-4.9); Lymphocytes Percent Auto 24.5 % (20-40); MANUAL DIFF FLAG NO; Mean Corpuscular HGB Conc 32.6 g/dl (31.0-35.0); Mean Corpuscular Hemoglobin 26.3 pg (27.0-33.0); Mean Corpuscular Volume 80.7 fL (80-98); Mean Platelet Volume 10.1 fL (9.4-12.3); Monocytes Absolute Auto 0.4 X10*3/uL (0.1-1.2); Monocytes Percent Auto 5.8 % (2-11); Neutrophils Absolute Auto 4.6 X10*3/uL (2.0-8.3); Neutrophils Percent Auto 66.4 % (45-73); Platelet Count 310 X10*3/uL (160-400); Red Blood Count 4.82 X10*6/uL (4.20-5.50); Red Cell Distribution Width 13.2 % (11.0-16.0); White Blood Count 6.9 X10*3/uL (4.8-10.8)
[2020-11-27 09:16] LABS: Estimated Average Glucose 220 mg/dL; Hemoglobin A1c % 9.3 %
[2020-11-27 09:19] LABS: Alanine Aminotransferase 30 U/L (0-31); Albumin Level 4.1 g/dL (3.5-5.0); Alkaline Phosphatase 121 U/L (39-117); Anion Gap 11 (12-20); Aspartate Amino Transferase 19 U/L (5-31); Bilirubin Total 0.5 mg/dL (0.0-1.0); Blood Urea Nitrogen 8 mg/dL (9-16); Calcium 9.5 mg/dL (8.4-10.2); Carbon Dioxide 27 mmol/L (22-29); Chloride 103 mmol/L (96-108); Cholesterol 194 mg/dL; Estimated Glomerular Filt Rate > 60; Glucose Random 181 mg/dL (60-115); HDL Cholesterol 56 mg/dL; LDL Cholesterol Calculated 107 mg/dl; Potassium 4.5 mmol/L (3.3-5.1); Sodium 136 mmol/L (135-145); Total Protein 7.2 g/dL (6.5-8.0); Triglycerides 155 mg/dL
[2020-11-27 09:22] LABS: Creatinine Urine 46.37 mg/dL; Microalbumin Urine < 5.0 mg/L
[2020-11-27 09:41] LABS: Vitamin D 25-OH Total 18.1 ng/mL (>30)
[2020-11-27 09:45] LABS: Free T4 (Free Thyroxine) 0.98 ng/dL (0.71-1.85)
[2020-11-27 09:46] LABS: Thyroid Stimulating Hormone 1.59 uIU/mL (0.32-4.0)
[2020-11-27 11:24] LABS: Folate 10.4 ng/mL (> or = 4.0); Vitamin B12 188 pg/mL (200-900)
[2020-11-28 12:17] LABS: LDL Cholesterol Direct 120 mg/dL (<100)
[2020-11-30 11:36] LABS: Parietal Cell Antibody <=20.0 Unit (<=20.0)
[2020-11-30 23:06] LABS: Intrinsic Factor Antibodies Negative (Negative)
== END 2020-11-27 08:07 | disposition home or self-care (01) ==
LOC: HO.LAB 08:06
PROVIDERS: Internal Medicine Endocrinology, Diabetes & Metabolism; Absent Provider Internal Medicine; PCP Internal Medicine; Visit Provider Internal Medicine
DX: E11.65 Type 2 diabetes mellitus with hyperglycemia (principal); E55.9 Vitamin D deficiency, unspecified; E06.3 Autoimmune thyroiditis; E11.21 Type 2 diabetes mellitus with diabetic nephropathy; E53.8 Deficiency of other specified B group vitamins; D64.9 Anemia, unspecified; Z79.4 Long term (current) use of insulin
CPT/HCPCS: 36415; 80053; 80061; 82043; 82306; 82607; 82746; 83036; 83516; 83721; 84439; 84443; 85025; 86340

== ENCOUNTER 2021-01-26 07:19 | Day surgery (SDC) | payer OTHER, SELFPAY ==
--- NOTE | 2021-01-25 10:08 | HO.ANESPROP2 ---
Documented by User: Tanya Hankins NP 01/25/21 10:11 HPI - Anesthesia Eval Consult details Narrative: 45yo F for Bilateral L3-L4-DR L5 Medial Branches RFA PMFSH Active Problems Active Problems: All Active Problems (Updated 01/17/21 @ 13:02 by Ailin Kraus RN) Fibromyalgia (Acute) Carpal tunnel syndrome of right wrist (Acute) Schatzki's ring (Acute) Hemorrhoids (Acute) Hiatal hernia (Acute) Nasal discharge (Acute) Excessive daytime sleepiness (Acute) Vitamin D deficiency (Acute) T2DM (type 2 diabetes mellitus) (Acute) Left ankle pain (Acute) B12 deficiency (Acute) Left leg pain (Acute) Acid reflux (Acute) History of colonic polyps (Acute) Chronic fatigue (Acute) Carpal tunnel syndrome (Acute) Daytime hypersomnia (Acute) Autoimmune thyroiditis (Acute) Fibromyalgia (Acute) Morbid obesity (Acute) Spondylosis, thoracic, without myelopathy (Acute) Spondylosis of lumbosacral spine without myelopathy (Acute) Sessile colonic polyp (Acute) Obesity (Acute) 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's 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 (Acute) 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) Diabetic nephropathy associated with type 2 diabetes mellitus (Acute) Diabetic retinopathy associated with type 2 diabetes mellitus (Acute) Diabetic polyneuropathy associated with type 2 diabetes mellitus (Acute) GERD (gastroesophageal reflux disease) (Acute) Asthma (Acute) Hyperlipidemia (Acute) Hypertension (Acute) Diabetes mellitus (Acute) Polyarthralgia (Acute) Past Medical History Medical History Acid reflux Anxiety and depression Asthma Autoimmune thyroiditis B12 deficiency Back pain Carpal tunnel syndrome Chronic fatigue Daytime hypersomnia Diabetes mellitus Diabetic nephropathy associated with type 2 diabetes mellitus Diabetic polyneuropathy associated with type 2 diabetes mellitus Diabetic retinopathy associated with type 2 diabetes mellitus Fibromyalgia GERD (gastroesophageal reflux disease) Tracee's disease History of colonic polyps History of Graves' disease History of ulcer disease Hyperlipidemia Hypertension Iron (Fe) deficiency anemia Left ankle pain Left leg pain 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 Lumbar degenerative disc disease Morbid obesity Obesity Polyarthralgia Sessile colonic polyp 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, thoracic, without myelopathy T2DM (type 2 diabetes mellitus) Vitamin D deficiency Family History Family History Father Diabetes Hypertension Mother Diabetes Hypertension Maternal Grandmother Colon cancer Paternal Aunt Cancer of ear Family history of problems with anesthesia: No Surgical History Surgical History H/O endoscopy H/O gastric bypass History of appendectomy History of carpal tunnel surgery of left wrist History of carpal tunnel surgery of right wrist History of cataract extraction History of lumpectomy of left breast Hx laparoscopic cholecystectomy Hx of section Hx of colonoscopy Hx of esophagogastroduodenoscopy History of Problems with Anesthesia: No Social History Social History Household Members: Family Housing: House Alcohol intake: never Patient Tobacco Use Status: Former Tobacco user Quit Date: 2013 Tobacco use type: Cigarette Cigarette Packs Per Day: 1 Cigarettes Per Day: 20.0 Years Smoked: 20 Smoked in Last 30 Days: No e-Cigarette/Vaping Use: Never Used Second Hand Smoke Exposure: No Use of substances other than those prescribed or required for medical reasons: No Are you DNR?: No Advance Directives: No Advance Directives Information Provided: Yes service: No Current occupational status: disabled Meds Allergies Allergy/AdvReac Type Severity Reaction Status Date / Time adhesive tape [ADHESIVE TAPE] Allergy Intermediate RASH Verified 01/26/21 08:10 pioglitazone [From ACTOS] Allergy Intermediate facial Verified 01/26/21 08:10 edema,rash Home Medications Medication Instructions Recorded Confirmed Last Taken Type artifi.tears(hypromellose)(PF) 0.3 1 drp OPHTHALMIC-RIGHT Q4-6H PRN 12/10/19 01/17/21 Unknown History % eye drops ascorbate calcium (vitamin C) 500 500 mg PO DAILY 12/10/19 01/17/21 Unknown History mg tablet diclofenac sodium 75 mg 75 mg PO BID 12/10/19 01/17/21 Unknown History tablet,delayed release docusate sodium 100 mg capsule 100 mg PO DAILY 12/10/19 01/17/21 Unknown History nortriptyline 10 mg capsule 10 mg PO BEDTIME 12/10/19 01/17/21 Unknown History trazodone 100 mg tablet 100 mg PO BEDTIME PRN 12/10/19 01/17/21 Unknown History buspirone 10 mg tablet 1 tab PO TID 12/31/19 01/17/21 Unknown History citalopram 20 mg tablet 1 tab PO DAILY 12/31/19 01/17/21 Unknown History hydroxyzine HCl 25 mg tablet 1 - 2 tab PO QID 12/31/19 01/17/21 Unknown History thiamine HCl (vitamin B1) 100 mg 1 tab PO DAILY 12/31/19 01/17/21 Unknown History tablet vitamin A 10,000 unit capsule 1 cap PO DAILY 12/31/19 01/17/21 Unknown History Exam Exam Date and Time: January 25, 2021 1008 Pertinent Lab Results Pertinent Lab Results: Laboratory Tests 11/27/20 11/27/20 08:27 08:27 WBC 6.9 Hgb 12.7 Hct 38.9 Plt Count 310 D Sodium 136 Potassium 4.5 Chloride 103 Carbon Dioxide 27 BUN 8 L Creatinine 0.71 Assessment and Plan Assessment Anesthesia Assessment: Chart Reviewed Final Anesthetic Review Family History of Problems with Anesthesia: No History of Problems with Anesthesia: No Documented by User: Courtney Merida MD 01/26/21 08:52 [facility] Past Medical History Medical History Acid reflux Anxiety and depression Asthma Autoimmune thyroiditis B12 deficiency Back pain Carpal tunnel syndrome Chronic fatigue Daytime hypersomnia Diabetes mellitus Diabetic nephropathy associated with type 2 diabetes mellitus Diabetic polyneuropathy associated with type 2 diabetes mellitus Diabetic retinopathy associated with type 2 diabetes mellitus Fibromyalgia GERD (gastroesophageal reflux disease) Tracee's disease History of colonic polyps History of Graves' disease History of ulcer disease Hyperlipidemia Hypertension Iron (Fe) deficiency anemia Left ankle pain Left leg pain 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 Lumbar degenerative disc disease Morbid obesity Obesity Polyarthralgia Sessile colonic polyp 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, thoracic, without myelopathy T2DM (type 2 diabetes mellitus) Vitamin D deficiency Family History Family History Father Diabetes Hypertension Mother Diabetes Hypertension Maternal Grandmother Colon cancer Paternal Aunt Cancer of ear Surgical History Surgical History H/O endoscopy H/O gastric bypass History of appendectomy History of carpal tunnel surgery of left wrist History of carpal tunnel surgery of right wrist History of cataract extraction History of lumpectomy of left breast Hx laparoscopic cholecystectomy Hx of section Hx of colonoscopy Hx of esophagogastroduodenoscopy Social History Social History Household Members: Family Housing: House Alcohol intake: never Patient Tobacco Use Status: Former Tobacco user Quit Date: 2013 Tobacco use type: Cigarette Cigarette Packs Per Day: 1 Cigarettes Per Day: 20.0 Years Smoked: 20 Smoked in Last 30 Days: No e-Cigarette/Vaping Use: Never Used Second Hand Smoke Exposure: No Use of substances other than those prescribed or required for medical reasons: No Are you DNR?: No Advance Directives: No Advance Directives Information Provided: Yes service: No Current occupational status: disabled Meds Allergies Allergy/AdvReac Type Severity Reaction Status Date / Time adhesive tape [ADHESIVE TAPE] Allergy Intermediate RASH Verified 01/26/21 08:10 pioglitazone [From ACTOS] Allergy Intermediate facial Verified 01/26/21 08:10 edema,rash Home Medications Medication Instructions Recorded Confirmed Last Taken Type artifi.tears(hypromellose)(PF) 0.3 1 drp OPHTHALMIC-RIGHT Q4-6H PRN 12/10/19 01/17/21 Unknown History % eye drops ascorbate calcium (vitamin C) 500 500 mg PO DAILY 12/10/19 01/17/21 Unknown History mg tablet diclofenac sodium 75 mg 75 mg PO BID 12/10/19 01/17/21 Unknown History tablet,delayed release docusate sodium 100 mg capsule 100 mg PO DAILY 12/10/19 01/17/21 Unknown History nortriptyline 10 mg capsule 10 mg PO BEDTIME 12/10/19 01/17/21 Unknown History trazodone 100 mg tablet 100 mg PO BEDTIME PRN 12/10/19 01/17/21 Unknown History buspirone 10 mg tablet 1 tab PO TID 12/31/19 01/17/21 Unknown History citalopram 20 mg tablet 1 tab PO DAILY 12/31/19 01/17/21 Unknown History hydroxyzine HCl 25 mg tablet 1 - 2 tab PO QID 12/31/19 01/17/21 Unknown History thiamine HCl (vitamin B1) 100 mg 1 tab PO DAILY 12/31/19 01/17/21 Unknown History tablet vitamin A 10,000 unit capsule 1 cap PO DAILY 12/31/19 01/17/21 Unknown History Exam Airway Mallampati Class: II TM Dist: >3cm Neck ROM: Full Heart: RRR Lungs: CTA Assessment and Plan Assessment Anesthesia Assessment: Anesthesia Plan Discussed Final Anesthetic Review NPO: Yes ASA Class: III Final Preanesthetic Review: Meds/Allgs Chart Reviewed, Consent Obtained/Reviewed and Anes Risks/Benef Reviewed Patient Risk: Intermediate Procedure Risk: Intermediate Anesthetic Plan Anesthetic Plan: MAC: Disposition: Standard PACU
--- NOTE | ~2021-01-26 | FL_ITS ---
EXAMINATION: XR FLUOROSCOPY WITH IMAGES CLINICAL INFORMATION: L3, L4, DR, L5 medial branch RFA bilateral COMPARISON: None. TECHNIQUE: Fluoroscopy performed by Dr. Poli Tristan. Fluoroscopy time: 1 minute DAP: 6.04 Gycm2 Images: 2 FINDINGS: Radiopaque needles are seen both on the right and left spanning from the L3-L5 levels. FL/FL guidance in OR IMPRESSION: Fluoroscopic guidance for intervention from L3 to L5. Please refer to procedural report for further information.
[2021-01-26 07:55] VITALS: BP 153/84; PULSE 77; RESP 16; TEMP 36.3; O2SAT 100
[2021-01-26 07:55] LABS: UPreg QC Valid YES; Urine Pregnancy NEGATIVE (NEGATIVE)
[2021-01-26 07:57] VITALS: BMI 26.8
[2021-01-26 08:03] LABS: Glucose, Whole Blood 191 mg/dL (60-115)
--- NOTE | 2021-01-26 08:12 | MHC.SHP ---
Pre-Procedural Eval Section A Date of Service: 01/26/21 The patient is an INPATIENT: No Changes since office visit: Yes Patient answered all questions The History & Physical has been completed within 30 days and I have reviewed it.: No Section B Chief Complaint: Spondylosis w/o Myelopathy Details of Present Illness: As above Relevant Social History: None Present Medications: see Short Stay Collaborative assessment Medical History: Significant History History of Previous Operations: No relevant previous surgery Allergies: Allergies Allergy/AdvReac Type Severity Reaction Status Date / Time adhesive tape [ADHESIVE TAPE] Allergy Intermediate RASH Verified 01/26/21 08:10 pioglitazone [From ACTOS] Allergy Intermediate facial Verified 01/26/21 08:10 edema,rash Review of Systems Sugical H&P ROS: Negative: Cardiovascular, Respiratory, Neurological, Psychiatric, Hem-Onc, Allergic/Immunologic, Gastrointestinal, Genitourinary, Integumentary, Endocrine and Eyes/Ears/Nose/Throat and Yes, Specify: Constitution (Morbid obesity) and Musculoskeletal (Spondylosis lumbar) Exam Surgical H&P Exam: Normal: HEENT, Normal: Heart, Normal: Lungs, Normal: Extremities, Normal: Abdomen, Normal: Skin and Normal: Neurological Plan Diagnosis/Plan: Unchanged I have reviewed the history and physical and performed a pertinent physical examination on my patient. No changes have occurred unless specified.
[2021-01-26] MEDS: Lactated Ringers 1,000 ML 100 ML IVCONT (08:24)
--- NOTE | 2021-01-26 08:28 | P.OP_ITS ---
Operative Note Operative Note Date of Service: 01/26/21 Narrative: Bilateral medial branch L3, L4 ,dorsal ramus L5 radiofrequency ablation. Informed consent was explained to the patient. All questions were explained and? answered.? The patient was taken inside the operating room where she was positioned prone on the operating table.? [employer] [place] [employer] monitors were applied and patient was moderately sedated. Time-out was performed delineating correct name end of the of the patient, site, side, the nature of the procedure, patient's allergy, preoperative antibiotic if needed.? All operating room staff was participating in OR time-out procedure. ?The lower back was prepped with ChloraPrep and draped with sterile towels.?C- arm was brought over the operating field and sq picture of L4-and L5 vertebra and S1 AREA were delineated on the screen.? Point of interest were delineated as connection of superior articular process ofL4 and L5 vertebra bilaterally with corresponding transverse processes as well as connection of the sacral alae bilateral with superior articular process of S1.? The projection of the point of interest to the skin were injected with the small amount of local anesthetic lidocaine 2% 1-1.5 cc.? After that 22 gauge 145 mm radiofrequency cannulas were driven sequentially 1st to the right and after that to the left to the points of interest in tunnel vision fashion. When needle gently contacted the bone at the point of interests the stylets were removed and nitinol electrodes were inserted into the cannulas. Motor testing was performed and demonstrated no abnormal motor response in the lower extremities. After that the nitinol electrodes were removed, the needles were injected with small amount of bupivacaine 0.5% mixed with lidocaine 2% with trace amount of Kenalog, and after that the nitinol electrodes were reinserted into the cannulas. Energy application performed for 89? centigrade for 90 seconds. After that the needles were rotated 180 ? and application of the energy was repeated at the same parameters. Upon completion of the procedure cannulas were removed sterile dressing was applied. ? The patient recovered uneventfully
[2021-01-26 09:32] VITALS: BP 109/64; PULSE 75; RESP 20; TEMP 36.9; O2SAT 99
--- NOTE | 2021-01-26 09:37 | P.BOP_ITS ---
Brief Operative Note Date of Service: 01/26/21 Pre-op diagnosis: Spondylosis lumbar Post-op diagnosis: same Procedure: Radiofrequency ablation L3-L4 L5 medial branches Implants: None Surgeon: Poli Tristan MD Anesthesia: MAC Was an Supervisor [employer] used for this Procedure?: No Estimated blood loss (mL): 3 Pathology: none sent Condition: stable Disposition: PACU
[2021-01-26 09:45] VITALS: BP 139/75; PULSE 61; RESP 16; TEMP 36.9; O2SAT 99
[2021-01-26 10:00] VITALS: BP 134/70; PULSE 60; RESP 16; TEMP 36.1; O2SAT 99
[2021-01-26 10:13] VITALS: BP 133/73; PULSE 75; RESP 16; TEMP 36.1; O2SAT 99
== END 2021-01-26 11:27 | disposition home or self-care (01) ==
PROVIDERS: Nurse Practitioner; PCP Internal Medicine; Visit Provider Anesthesiology
PROC: (CPT 64635; principal; 2021-01-26 09:00)
DX: M47.817 Spondylosis without myelopathy or radiculopathy, lumbosacral region (principal); M47.814 Spondylosis without myelopathy or radiculopathy, thoracic region; R53.82 Chronic fatigue, unspecified; E66.01 Morbid (severe) obesity due to excess calories; J45.909 Unspecified asthma, uncomplicated; E06.3 Autoimmune thyroiditis; K21.9 Gastro-esophageal reflux disease without esophagitis; F41.8 Other specified anxiety disorders; E11.21 Type 2 diabetes mellitus with diabetic nephropathy; E11.42 Type 2 diabetes mellitus with diabetic polyneuropathy; E11.319 Type 2 diabetes mellitus with unspecified diabetic retinopathy without macular edema; Z79.4 Long term (current) use of insulin; Z79.899 Other long term (current) drug therapy; Z91.040 Latex allergy status; Z88.8 Allergy status to other drugs, medicaments and biological substances; M51.36 Other intervertebral disc degeneration, lumbar region
CPT/HCPCS: 64635; 64636 ×2; 81025; 82947; J2250; J3010; J3300; Q9967

== ENCOUNTER 2021-02-26 07:46 | Outpatient (REF) | payer OTHER, SELFPAY ==
--- NOTE | ~2021-02-26 | MM_ITS ---
EXAMINATION: MM SCREENING DIGITAL BREAST TOMOSYNTHESIS, BILATERAL CLINICAL INFORMATION: Screening. Asymptomatic. Patient has known sebaceous cyst posterior inferior medial right breast. The lifetime risk of breast cancer based on the Tyrer-Cuzick Model is 13%. COMPARISON: Mammography: 02/23/2020, 02/19/2019, 02/12/2018 TECHNIQUE: Digital breast tomosynthesis is performed in both the craniocaudal and mediolateral oblique views along with computer-aided detection (CAD). Synthesized 2D images are generated from the tomosynthesis. Additional right CC view is provided. FINDINGS: There are scattered areas of fibroglandular density (ACR BI-RADS breast composition Category b). Parenchymal pattern is similar to prior studies. There is subtle increased density related to the known sebaceous cyst posterior inferior medial right breast, marked with skin marker. Remainder of the breasts show no interval changes from prior studies. There is no developing density or architectural abnormality or abnormal calcifications. The axilla and skin contours are otherwise unremarkable. There is biopsy clip marker again seen posterior inferior left breast just deep to the skin. MM/MM tomosynthesis screening BI IMPRESSION: 1. No mammographic evidence of malignancy. 2. Subtle density posterior inferior medial right breast corresponding to clinically known sebaceous cyst. ASSESSMENT: BI-RADS 2: Benign RECOMMENDATION: Routine annual mammography screening. This patient's information was entered into a reminder system with a target due date for their next mammogram.
== END 2021-02-26 07:47 | disposition home or self-care (01) ==
LOC: HO.MAMMO 07:46
PROVIDERS: Visit Provider Internal Medicine
DX: Z12.31 Encounter for screening mammogram for malignant neoplasm of breast (principal)
CPT/HCPCS: 77063; 77067

== ENCOUNTER 2021-02-28 09:02 | Outpatient (REF) | payer OTHER, SELFPAY ==
[2021-02-28 10:35] LABS: COVID-19 Test Negative (Negative)
== END 2021-02-28 09:03 | disposition home or self-care (01) ==
LOC: HO.LAB 09:02
PROVIDERS: Visit Provider Internal Medicine
DX: Z20.822 Contact with and (suspected) exposure to COVID-19 (principal)
CPT/HCPCS: 87635; C9803

== ENCOUNTER 2021-03-02 12:42 | Emergency (ER) | payer OTHER, SELFPAY ==
--- NOTE | ~2021-03-02 | XR_ITS ---
EXAMINATION: XR CHEST CLINICAL INFORMATION: Cough. COMPARISON: Chest radiograph dated from 11/13/2016. TECHNIQUE: PA view of the chest was obtained. FINDINGS: Normal appearance of the cardiomediastinal silhouette. Decreased lung volumes with mild bronchovascular crowding but no focal airspace opacities, pleural effusions or pneumothorax. No acute osseous abnormalities. The visualized upper abdomen is within normal limits. XR/XR chest 1V IMPRESSION: No acute cardiopulmonary findings.
[2021-03-02 14:23] VITALS: BP 133/67; PULSE 75; RESP 18; TEMP 36.7; O2SAT 100; BMI 29.5
[2021-03-02 14:47] LABS: COVID-19 Test Positive (Negative)
--- NOTE | 2021-03-02 16:14 | ED_ITS ---
HPI - URI/Sore Throat General Chief Complaint: Upper Respiratory Symptoms Stated Complaint: covid symptoms/ exposed Time Seen by Provider: 03/02/21 14:53 Source: patient Mode of arrival: ambulatory History of Present Illness HPI Narrative: 46-year-old female with a past medical history of GERD, anxiety, depression, asthma, vitamin B12 deficiency, diabetes, fibromyalgia, Tracee's, hypertension, hyperlipidemia, presenting to the ED complaining of sore throat, headache, myalgias, diarrhea x3 days. Admits to COVID-19 positive contacts. Also reports slight cough. Denies fever, SOB, CP, recent travel, pedal edema MD elicited complaint: cough Related Data Home Medications Medication Instructions Recorded Confirmed artifi.tears(hypromellose)(PF) 0.3 1 drp OPHTHALMIC-RIGHT Q4-6H PRN 12/10/19 01/17/21 % eye drops ascorbate calcium (vitamin C) 500 500 mg PO DAILY 12/10/19 01/17/21 mg tablet diclofenac sodium 75 mg 75 mg PO BID 12/10/19 01/17/21 tablet,delayed release docusate sodium 100 mg capsule 100 mg PO DAILY 12/10/19 01/17/21 nortriptyline 10 mg capsule 10 mg PO BEDTIME 12/10/19 01/17/21 trazodone 100 mg tablet 100 mg PO BEDTIME PRN 12/10/19 01/17/21 buspirone 10 mg tablet 1 tab PO TID 12/31/19 01/17/21 citalopram 20 mg tablet 1 tab PO DAILY 12/31/19 01/17/21 hydroxyzine HCl 25 mg tablet 1 - 2 tab PO QID 12/31/19 01/17/21 thiamine HCl (vitamin B1) 100 mg 1 tab PO DAILY 12/31/19 01/17/21 tablet vitamin A 10,000 unit capsule 1 cap PO DAILY 12/31/19 01/17/21 Previous Rx's Medication Instructions Recorded loperamide 2 mg capsule 2 mg PO Q6H PRN #10 cap 01/01/20 (Anti-Diarrheal (loperamide)) ondansetron 4 mg disintegrating 4 mg PO Q6-8H PRN #10 tab 01/03/20 tablet pantoprazole 40 mg tablet,delayed 40 mg PO DAILY 30 Days #30 tab 05/11/20 release furosemide 20 mg tablet 20 mg PO BID 90 Days #180 tab 06/28/20 canagliflozin 300 mg tablet 300 mg PO DAILY 30 Days #30 tab 07/10/20 (Invokana) cholecalciferol (vitamin D3) 125 125 mcg PO DAILY 30 Days #30 cap 07/10/20 mcg (5,000 unit) capsule insulin regular hum U-500 conc 500 200 unit (0.4 mL) SUBCUT DAILY #20 07/29/20 unit/mL subcutaneous soln (Humulin ml R U-500 (Concentrated) Insulin) cane #1 ea 07/31/20 albuterol sulfate 2.5 mg (3 mL) INHALATION QID PRN 08/21/20 30 Days #360 ml blood-glucose meter (FreeStyle #1 ea 09/05/20 Lite Meter) fluticasone propionate 50 1 spray INTRANASAL DAILY #16 ml 09/05/20 mcg/actuation nasal spray,suspension sucralfate 100 mg/mL oral 10 ml PO Q6H #3780 ml 10/11/20 suspension cyanocobalamin (vitamin B-12) 1,000 mcg SUBCUT .once a month 30 11/27/20 1,000 mcg/mL injection solution Days #1 ml lisinopril 5 mg tablet 5 mg PO DAILY #90 tab 12/06/20 montelukast 10 mg tablet 10 mg PO DAILY 90 Days #90 tab 12/06/20 rosuvastatin 10 mg tablet 10 mg PO DAILY 90 Days #90 tab 12/07/20 blood sugar diagnostic (FreeStyle #100 ea 01/25/21 Lite Strips) cetirizine 10 mg capsule (Zyrtec) 10 mg PO DAILY 90 Days #90 cap 01/25/21 dulaglutide 1.5 mg/0.5 mL 1.5 mg (0.5 mL) SUBCUT QWEEK 30 01/25/21 subcutaneous pen injector Days #2.5 ml (Trulicity) syringe with needle, safety 3 mL #1 ea 01/25/21 25 gauge x 5/8 (BD Safety-Jone Detachable Needle) oxycodone-acetaminophen 5 mg-325 1 tab PO TID PRN 30 Days #90 tab 02/28/21 mg tablet tizanidine 4 mg tablet 4 mg PO Q8H PRN 30 Days #90 tab 02/28/21 Allergies Allergy/AdvReac Type Severity Reaction Status Date / Time adhesive tape [ADHESIVE TAPE] Allergy Intermediate RASH Verified 03/02/21 14:23 pioglitazone [From ACTOS] Allergy Intermediate facial Verified 03/02/21 14:23 edema,rash Review of Systems Review of Systems: Constitutional: No Fever, No Chills ENT/Mouth: No Ear Pain, No Nasal Congestion, No Hoarseness, + sore throat, No Rhinorrhea Cardiovascular: No Chest Pain, No SOB Respiratory: No Cough, No Sputum, No Wheezing Gastrointestinal: No Nausea, No Vomiting, + Diarrhea, No Constipation, No Abd ominal pain Genitourinary:No Dysuria, No Urinary Frequency Musculoskeletal: No joint pain, + Myalgias, No Joint Swelling Skin: No Skin Lesions, No rash Neuro: No Weakness, +headache Yes all other systems are reviewed and are negative [facility] Past Medical History Attestation statement: The following information was validated with the patient. Medical History Acid reflux Anxiety and depression Asthma Autoimmune thyroiditis B12 deficiency Back pain Carpal tunnel syndrome Chronic fatigue Daytime hypersomnia Diabetes mellitus Diabetic nephropathy associated with type 2 diabetes mellitus Diabetic polyneuropathy associated with type 2 diabetes mellitus Diabetic retinopathy associated with type 2 diabetes mellitus Fibromyalgia GERD (gastroesophageal reflux disease) Tracee's disease History of colonic polyps History of Graves' disease History of ulcer disease Hyperlipidemia Hypertension Iron (Fe) deficiency anemia Left ankle pain Left leg pain snf (current) use of insulin Lumbar degenerative disc disease Morbid obesity Obesity Polyarthralgia Sessile colonic polyp 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, thoracic, without myelopathy T2DM (type 2 diabetes mellitus) Vitamin D deficiency Surgical History H/O endoscopy H/O gastric bypass History of appendectomy History of carpal tunnel surgery of left wrist History of carpal tunnel surgery of right wrist History of cataract extraction History of lumpectomy of left breast Hx laparoscopic cholecystectomy Hx of section Hx of colonoscopy Hx of esophagogastroduodenoscopy Family History Family History Father Diabetes Hypertension Mother Diabetes Hypertension Maternal Grandmother Colon cancer Paternal Aunt Cancer of ear Social History Social History Household Members: Family Housing: House Alcohol intake: never Patient Tobacco Use Status: Former Tobacco user Quit Date: 2013 Tobacco use type: Cigarette Cigarette Packs Per Day: 1 Cigarettes Per Day: 20.0 Years Smoked: 20 e-Cigarette/Vaping Use: Never Used Second Hand Smoke Exposure: No Advance Directives: No Advance Directives Information Provided: No service: No Current occupational status: disabled Physical Exam Vital Signs: Vital Signs: Last Vital Signs Temp 98.1 F 03/02/21 14:23 Pulse 75 03/02/21 14:23 Resp 18 03/02/21 14:23 BP 133/67 03/02/21 14:23 Pulse Ox 100 03/02/21 14:23 BMI result Body Mass Index 29.5 Const: General: cooperative, healthy appearing and no acute distress Orientation/consciousness: patient oriented x3 Limitations: no limitations HENMT: Head: Yes normal to inspection, Yes normocephalic and Yes atraumatic Ears: hearing grossly normal bilaterally, external ears normal and TM's normal bilaterally General nose exam: Normal external nose present Face and sinus: Yes normal facial exam Teeth and gingiva: dentition normal Throat: Yes posterior oropharynx normal, Yes tonsils normal, Yes uvula midline, No peritonsillar mass and No uvular edema Eyes: General: appearance normal, both eyes and all related structures EOM: EOMs intact bilaterally Neck: Neck: Yes normal visual inspection, Yes no meningeal signs, Yes trachea midline and Yes supple Resp: Effort & Inspection: normal respiratory effort and no stridor Auscultation: clear to auscultation bilaterally, no rales, no rhonchi and no wheezes Cardio: Rate: regular rate Heart sounds: S1 normal heart sound present and S2 normal heart sound present Skin: Rashes: no rashes Wounds: no wounds Neuro: General: patient oriented x3 and no meningeal signs Gait exam (Neuro): Normal gait present Extrem: General: Yes normal to inspection Course Course Course Narrative: -1600-- COVID-19 positive XR chest 1V IMPRESSION: No acute cardiopulmonary findings. > results discussed with patient including worrisome signs and symptoms and strict return precautions MDM - URI/Sore Throat MDM Narrative Medical decision making narrative: 46-year-old female with a past medical history of GERD, anxiety, depression, asthma, vitamin B12 deficiency, diabetes, fibromyalgia, Tracee's, hypertension, hyperlipidemia, presenting to the ED complaining of sore throat, headache, myalgias, diarrhea x3 days. on exam vital signs stable, NAD/ nontoxic, lungs CTA, or pharynx WNL, TM WNL. Concern for vir al syndrome/ COVID-19. Lower concern for ACS, PE, pneumonia Plan: COVID-19 testing, CXR Medical Records Attestation: I reviewed the patient's medical records. Lab Data Attestation: I reviewed the patient's lab results. Labs: Lab Results 03/02/21 Range/Units 14:30 COVID-19 ([facility]UL[facility]) Positive A (Negative) COVID-19 Clin Com See Note Discharge Plan Discharge Clinical Impression: COVID-19 Patient Disposition: Home, Self-Care Instructions: COVID-19 (Coronavirus Disease 2019) (ED) Additional Instructions: At this time you will be okay for discharge. Please self isolate for 10-14 days. Do not expose yourself to others. You may not go to work or school. Please continue to follow cold instructions and wash your hands frequently. You may take Tylenol / Motrin as directed on the bottle for pain or fever. If you have constant or persistent shortness of breath, fever unresolved with medications, chest pain, or your unable to eat or drink please return to the ED CDC Guidelines for home isolation: - Stay away from others - WEAR A MASK if you are sick AND STAY HOME - Cover your mouth and nose with a tissue when you cough or sneeze. Dispose of tissues in a lined trash can and wash your hands immediately with soap and water for at least 20 seconds. If soap and water are not available, clean hands with alcohol-based hand validation software facilitator that contains at least 60% alcohol. - Clean your hands often with soap and water for at least 20 seconds - Avoid touching your eyes, nose and mouth with unwashed hands - Do not share dishes, drinking glasses, cups, eating utensils, towels, or bedding with other people in your home. After using these items, wash them tho roughly with soap and water or put in the senior technical architect. - Clean high-touch surfaces in your isolation area ( sick room and bathroom) every day; let a caregiver clean and disinfect high-touch surfaces in other areas of the home. Clean the area or item with soap and water or another detergent if it is dirty. Then, use a household disinfectant. - Limit contact with pets and animals: If you must care for a pet, wash your hands before and after interacting with them) En chris momento estar? vishal para el brown. A?slese ella 10-14 d?as. No te expongas a los dem?s. Es posible que no vaya al trabajo ni a la escuela. Contin?e siguiendo las instrucciones en fr?o y l?vese las anand con frecuencia. Puede maurilio Tylenol/Motrin deven se indica en el frasco para el dolor o la fiebre. Si tiene dificultad para respirar richard o persistente, fiebre que no se resuelve con medicamentos, dolor en el pecho o no puede comer o beber, regrese al servicio de urgencias. Pautas de los CDC para el aislamiento en el hogar: - Mant?ngase alejado de los dem?s. - USE ALMA MASCARILLA si est? enfermo Y QU?DESE EN CASA - C?brase la boca y la nariz con un pa?uelo desechable al toser o estornudar. D eseche los pa?uelos en un bote de basura forrado y l?vese las anand inmediatamente con agua y jab?n ella al menos 20 segundos. Si no hay agua y jab?n disponibles, l?vese las anand con un desinfectante para anand a base de alcohol que contenga al menos un 60 % de alcohol. - L?vese las anand con frecuencia con agua y jab?n ella al menos 20 segundos. - Evite tocarse los ojos, la nariz y la boca con las anand sin matthew - No comparta platos, vasos, tazas, utensilios para comer, toallas o ropa de cama con otras personas en dasilva hogar. Despu?s de usar estos art?culos, l?velos vishal con agua y jab?n o col?quelos en el lav[place]illas. - Limpie las superficies de alto contacto en dasilva ?zina de aislamiento ( cuarto de enfermos y ba?o) todos los d?as; permita que un cuidador limpie y desinfecte las superficies de alto contacto en otras ?reas del hogar. Limpie el ?zina o el art?culo con agua y jab?n u otro detergente si est? sucio. Luego, use un desinfectante dom?stico. - Limite el contacto con mascotas y animales: si debe cuidar alma mascota, l?vese las anand antes y despu?s de interactuar con ellos) Prescriptions: No Action Humulin R U-500 (Conc) Insulin 500 unit/mL solution 200 unit subcut DAILY Qty: 20 RF: 11 (DME) cane Device See Rx Instructions .ROUTE .MEDSUPPLY Qty: 1 RF: 0 albuterol sulfate 2.5 mg /3 mL (0.083 %) solution for nebulization 2.5 mg inhalation QID PRN (Reason: bronchospasm) 30 Days Qty: 360 RF: 4 (DME) blood-glucose meter [FreeStyle Lite Meter] Kit See Rx Instructions .ROUTE .MEDSUPPLY Qty: 1 RF: 0 sucralfate 100 mg/mL suspension 10 ml PO Q6H Qty: 3780 RF: 0 cyanocobalamin (vitamin B-12) 1,000 mcg/mL solution 1,000 mcg subcut .once a month 30 Days Qty: 1 RF: 6 montelukast 10 mg tablet 10 mg PO DAILY 90 Days Qty: 90 RF: 3 lisinopril 5 mg tablet 5 mg PO DAILY Qty: 90 RF: 1 (DME) FreeStyle Lite Strips Strip See Rx Instructions .ROUTE .MEDSUPPLY Qty: 100 RF: 8 Zyrtec 10 mg capsule 10 mg PO DAILY 90 Days Qty: 90 RF: 3 Trulicity 1.5 mg/0.5 mL pen injector 1.5 mg subcut QWEEK 30 Days Qty: 2.5 RF: 6 (DME) BD Safety-Jone Detachable Needl 3 mL 25 gauge x 5/8 syringe See Rx Instructions .ROUTE .MEDSUPPLY Qty: 1 RF: 6 oxycodone-acetaminophen 5-325 mg tablet 1 tab PO TID PRN (Reason: pain) 30 Days Qty: 90 RF: 0 citalopram 20 mg tablet 1 tab PO DAILY RF: 0 buspirone 10 mg tablet 1 tab PO TID RF: 0 thiamine HCl (vitamin B1) 100 mg tablet 1 tab PO DAILY RF: 0 vitamin A 10,000 unit capsule 1 cap PO DAILY RF: 0 hydroxyzine HCl 25 mg tablet 1 - 2 tab PO QID RF: 0 loperamide [Anti-Diarrheal (loperamide)] 2 mg capsule 2 mg PO Q6H PRN (Reason: loose stool) Qty: 10 RF: 0 ondansetron 4 mg tablet,disintegrating 4 mg PO Q6-8H PRN (Reason: nausea and vomiting) Qty: 10 RF: 0 furosemide 20 mg tablet 20 mg PO BID 90 Days Qty: 180 RF: 3 fluticasone propionate 50 mcg/actuation spray,suspension 1 spray intranasal DAILY Qty: 16 RF: 4 rosuvastatin 10 mg tablet 10 mg PO DAILY 90 Days Qty: 90 RF: 1 diclofenac sodium 75 mg tablet,delayed release (DR/EC) 75 mg PO BID RF: 0 artifi.tears(hypromellose)(PF) 0.3 % drops 1 drp ophthalmic-Right Q4-6H PRN (Reason: Dry Eyes) RF: 0 ascorbate calcium (vitamin C) 500 mg tablet 500 mg PO DAILY RF: 0 trazodone 100 mg tablet 100 mg PO BEDTIME PRN (Reason: Sleep) RF: 0 nortriptyline 10 mg capsule 10 mg PO BEDTIME RF: 0 docusate sodium 100 mg capsule 100 mg PO DAILY RF: 0 Invokana 300 mg tablet 300 mg PO DAILY 30 Days Qty: 30 RF: 6 cholecalciferol (vitamin D3) 125 mcg (5,000 unit) capsule 125 mcg PO DAILY 30 Days Qty: 30 RF: 6 pantoprazole 40 mg tablet,delayed release (DR/EC) 40 mg PO DAILY 30 Days Qty: 30 RF: 11 tizanidine 4 mg tablet 4 mg PO Q8H PRN (Reason: muscle spasticity) 30 Days Qty: 90 RF: 8 Referrals: Analilia Chaidez MD [Primary Care Provider] - 10 days (as needed) Print Language: Turkmen
== END 2021-03-02 20:28 | disposition home or self-care (01) ==
PROVIDERS: Emergency Provider Emergency Medicine; PCP Internal Medicine
DX: U07.1 COVID-19 (principal); R05.9 Cough, unspecified; F17.210 Nicotine dependence, cigarettes, uncomplicated; Z71.6 Tobacco abuse counseling; Z79.899 Other long term (current) drug therapy
CPT/HCPCS: 71045; 87635; 99283

== ENCOUNTER 2021-03-04 07:24 | Emergency (ER) | payer OTHER, SELFPAY ==
--- NOTE | 2021-03-04 | ECG_ITS ---
Test Reason : chest pain Blood Pressure : / mmHG Vent. Rate : 075 BPM Atrial Rate : 075 BPM P-R Int : 152 ms QRS Dur : 080 ms QT Int : 378 ms P-R-T Axes : 039 056 049 degrees QTc Int : 422 ms Normal sinus rhythm Normal ECG No previous ECGs available Referred By: Generic ED Physician Electronically Signed By:CHIARA DEMPSEY
--- NOTE | ~2021-03-04 | XR_ITS ---
EXAMINATION: XR CHEST CLINICAL INFORMATION: Cough, shortness of breath. COVID positive. COMPARISON: Most recent chest radiograph dated 03/02/2021. TECHNIQUE: 2 views of the chest were obtained. FINDINGS: The lungs are clear. The cardiomediastinal silhouette is normal in size. There is no pleural effusion or pneumothorax. No acute osseous abnormality. XR/XR chest 2V IMPRESSION: No acute cardiopulmonary findings.
[2021-03-04 07:42] VITALS: BP 155/80; PULSE 81; RESP 18; TEMP 36.1; O2SAT 98; BMI 36.9
--- NOTE | 2021-03-04 09:39 | ED.URI ---
HPI - URI/Sore Throat General Chief Complaint: Chest Pain Stated Complaint: COVID+/chest pain/fatigue Time Seen by Provider: 03/04/21 09:14 Source: patient and family Mode of arrival: ambulatory Limitations: language barrier (Micronesian-speaking) History of Present Illness HPI Narrative: 46-year-old female with a past medical history of asthma who tested positive for COVID-19 on 03/02/2021 although has had symptoms for the past 6 days presenting to the ED with complaints of worsening COVID like symptoms which include nasal congestion/rhinorrhea, sore throat, cough nonproductive with chest tightness and shortness of breath. She reports that when she was seen here on 03/02/2021 she was not given any antibiotics and she would like some antibiotics. I explained to her for COVID-19 this is a virus and not bacterial infection usually we do not prescribe antibiotics unless there is evidence of pneumonia. Her chest x-ray on 03/02/2021 was negative for pneumonia or any other acute processes. She denies any measured fevers, dizziness, headaches, neck pain/stiffness, trouble swallowing, chest pain, dyspnea on exertion, orthopnea, palpitations, lower extremity edema or calf tenderness, nausea/vomiting/diarrhea constipation, abdominal pain, dysuria, focal weakness, recent travel or any other symptoms complaints or concerns at this time. MD elicited complaint: cough, sore throat, rhinorrhea and nasal congestion Pertinent past history: asthma Onset (ago): day(s) (6) Consistency: constant and progressively worsening Severity: moderate Able to tolerate fluids by mouth: Yes Exacerbating factors: deep breaths Relieving factors: nothing Context: other (Patient tested positive for COVID on Friday03/02/2021) Associated symptoms: chills, myalgias, rhinorrhea, nasal congestion, sore throat, cough, shortness of breath and other (And chest tightness) Treatments prior to arrival: none Related Data Home Medications Medication Instructions Recorded Confirmed artifi.tears(hypromellose)(PF) 0.3 1 drp OPHTHALMIC-RIGHT Q4-6H PRN 12/10/19 01/17/21 % eye drops ascorbate calcium (vitamin C) 500 500 mg PO DAILY 12/10/19 01/17/21 mg tablet diclofenac sodium 75 mg 75 mg PO BID 12/10/19 01/17/21 tablet,delayed release docusate sodium 100 mg capsule 100 mg PO DAILY 12/10/19 01/17/21 nortriptyline 10 mg capsule 10 mg PO BEDTIME 12/10/19 01/17/21 trazodone 100 mg tablet 100 mg PO BEDTIME PRN 12/10/19 01/17/21 buspirone 10 mg tablet 1 tab PO TID 12/31/19 01/17/21 citalopram 20 mg tablet 1 tab PO DAILY 12/31/19 01/17/21 hydroxyzine HCl 25 mg tablet 1 - 2 tab PO QID 12/31/19 01/17/21 thiamine HCl (vitamin B1) 100 mg 1 tab PO DAILY 12/31/19 01/17/21 tablet vitamin A 10,000 unit capsule 1 cap PO DAILY 12/31/19 01/17/21 Previous Rx's Medication Instructions Recorded loperamide 2 mg capsule 2 mg PO Q6H PRN #10 cap 01/01/20 (Anti-Diarrheal (loperamide)) ondansetron 4 mg disintegrating 4 mg PO Q6-8H PRN #10 tab 01/03/20 tablet pantoprazole 40 mg tablet,delayed 40 mg PO DAILY 30 Days #30 tab 05/11/20 release furosemide 20 mg tablet 20 mg PO BID 90 Days #180 tab 06/28/20 canagliflozin 300 mg tablet 300 mg PO DAILY 30 Days #30 tab 07/10/20 (Invokana) cholecalciferol (vitamin D3) 125 125 mcg PO DAILY 30 Days #30 cap 07/10/20 mcg (5,000 unit) capsule insulin regular hum U-500 conc 500 200 unit (0.4 mL) SUBCUT DAILY #20 07/29/20 unit/mL subcutaneous soln (Humulin ml R U-500 (Concentrated) Insulin) cane #1 ea 07/31/20 albuterol sulfate 2.5 mg (3 mL) INHALATION QID PRN 08/21/20 30 Days #360 ml blood-glucose meter (FreeStyle #1 ea 09/05/20 Lite Meter) fluticasone propionate 50 1 spray INTRANASAL DAILY #16 ml 09/05/20 mcg/actuation nasal spray,suspension sucralfate 100 mg/mL oral 10 ml PO Q6H #3780 ml 10/11/20 suspension cyanocobalamin (vitamin B-12) 1,000 mcg SUBCUT .once a month 30 11/27/20 1,000 mcg/mL injection solution Days #1 ml lisinopril 5 mg tablet 5 mg PO DAILY #90 tab 12/06/20 montelukast 10 mg tablet 10 mg PO DAILY 90 Days #90 tab 12/06/20 rosuvastatin 10 mg tablet 10 mg PO DAILY 90 Days #90 tab 12/07/20 blood sugar diagnostic (FreeStyle #100 ea 01/25/21 Lite Strips) cetirizine 10 mg capsule (Zyrtec) 10 mg PO DAILY 90 Days #90 cap 01/25/21 dulaglutide 1.5 mg/0.5 mL 1.5 mg (0.5 mL) SUBCUT QWEEK 30 01/25/21 subcutaneous pen injector Days #2.5 ml (Trulicity) syringe with needle, safety 3 mL #1 ea 01/25/21 25 gauge x 5/8 (BD Safety-Jone Detachable Needle) tizanidine 4 mg tablet 4 mg PO Q8H PRN 30 Days #90 tab 02/28/21 oxycodone-acetaminophen 5 mg-325 1 tab PO TID PRN 30 Days #90 tab 03/03/21 mg tablet albuterol sulfate 0.63 mg/3 mL 0.63 mg (3 mL) INHALATION QID PRN 03/04/21 solution for nebulization #75 ml albuterol sulfate 90 mcg/actuation 1 inh INHALATION QID PRN #8.5 g 03/04/21 aerosol inhaler azithromycin 250 mg tablet See Rx Instructions .ROUTE 03/04/21 .COMPLEX #6 tab codeine 10 mg-guaifenesin 100 mg/5 5 ml PO Q6H PRN #120 ml 03/04/21 mL oral liquid (Guaifenesin AC) nebulizers (AeroEclipse II #1 ea 03/04/21 Nebulizer) prednisone 20 mg tablet 40 mg PO DAILY 5 Days #10 tab 03/04/21 Allergies Allergy/AdvReac Type Severity Reaction Status Date / Time adhesive tape [ADHESIVE TAPE] Allergy Intermediate RASH Verified 03/02/21 14:23 pioglitazone [From ACTOS] Allergy Intermediate facial Verified 03/02/21 14:23 edema,rash Review of Systems Review of Systems: Constitutional : Positive subjective fever/chills/fatigue/malaise, No Weight loss, No Fever, No Night Sweats ENT/Mouth : Positive sore throat/nasal congestion/rhinorrhea, No Hearing loss, No Ear Pain, No Sinus Pain, No Hoarseness, No Swallowing Difficulty Eyes: No Eye Pain, No Swelling, No Redness, No Foreign Body, No Discharge, No Vision Changes Cardiovascular : Positive shortness of breath with chest tightness with coughing, otherwise no chest pain No Chest Pain, No Dyspnea on Exertion, No Orthopnea, No Edema, No Palpitations Respiratory : Positive Cough, No Sputum, No Wheezing, No Smoke Exposure Gastrointestinal : No Nausea, No Vomiting, No Diarrhea, No Constipation, No abdominal Pain, No Hematochezia, No Melena Genitourinary : no irregular bleeding, No Dysuria, No Urinary Frequency, No Hematuria, No Urinary Incontinence, No Urgency, No Flank Pain, No Urinary Flow Changes, No Hesitancy Musculoskeletal : No joint pain, positive Myalgias, No Joint Swelling Skin : No Skin Lesions, No rash Neuro : No Weakness, No Numbness, No Paresthesias, No Loss of Consciousness, No Dizziness, No Headache Psych : No Anxiety/Panic, No Depression, No SI/HI/AH/VH, No Social Issues, Heme/Lymph: No Bruising, No Bleeding,No Lymphadenopathy Endocrine : No Polyuria, No Polydipsia, No Temperature Intolerance Yes all other systems are reviewed and are negative [facility] Past Medical History Attestation statement: The following information was validated with the patient. Medical History Acid reflux Anxiety and depression Asthma Autoimmune thyroiditis B12 deficiency Back pain Carpal tunnel syndrome Chronic fatigue Daytime hypersomnia Diabetes mellitus Diabetic nephropathy associated with type 2 diabetes mellitus Diabetic polyneuropathy associated with type 2 diabetes mellitus Diabetic retinopathy associated with type 2 diabetes mellitus Fibromyalgia GERD (gastroesophageal reflux disease) Tracee's disease History of colonic polyps History of Graves' disease History of ulcer disease Hyperlipidemia Hypertension Iron (Fe) deficiency anemia Left ankle pain Left leg pain long-term (current) use of insulin Lumbar degenerative disc disease Morbid obesity Obesity Polyarthralgia Sessile colonic polyp 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, thoracic, without myelopathy T2DM (type 2 diabetes mellitus) Vitamin D deficiency Surgical History H/O endoscopy H/O gastric bypass History of appendectomy History of carpal tunnel surgery of left wrist History of carpal tunnel surgery of right wrist History of cataract extraction History of lumpectomy of left breast Hx laparoscopic cholecystectomy Hx of section Hx of colonoscopy Hx of esophagogastroduodenoscopy Family History Family History Father Diabetes Hypertension Mother Diabetes Hypertension Maternal Grandmother Colon cancer Paternal Aunt Cancer of ear Social History Social History Household Members: Family Housing: House Alcohol intake: never Patient Tobacco Use Status: Former Tobacco user Quit Date: 2013 Tobacco use type: Cigarette Cigarette Packs Per Day: 1 Cigarettes Per Day: 20.0 Years Smoked: 20 e-Cigarette/Vaping Use: Never Used Second Hand Smoke Exposure: No Advance Directives: No Advance Directives Information Provided: Yes Patient : No service: No Current occupational status: disabled Physical Exam Vital Signs: Vital Signs: Last Vital Signs Temp 97.0 F 03/04/21 07:42 Pulse 81 03/04/21 07:42 Resp 18 03/04/21 07:42 BP 155/80 H 03/04/21 07:42 Pulse Ox 98 03/04/21 07:42 BMI result Body Mass Index 36.9 vital signs have been reviewed as normal and appeared to be correct. Blood pressure 155/80. Heart rate normal. Respiration rate normal. Temperature normal. Oxygen saturation normal. Appearance: Alert. Oriented X3. No acute distress. Head: Normal external exam. Normocephalic. Atraumatic. Eyes: PERRLA. EOMI. Conjunctiva and sclera normal. Eyelids normal. ENT: EAC normal. TM's Normal. Pharynx normal. Uvula midline. Moist mucous membranes. No trismus noted. No drooling noted. No muffled voice noted. Neck: Normal inspection. Neck supple. FROM. No adenopathy. Thyroid Normal. No meningeal signs. No neck mass noted. CVS: Normal heart rate and rhythm. Heart sound normal. Pulses normal throughout. No murmurs/rales/gallops. Respiratory: No respiratory distress. Painless inspiration. Breath sounds normal. No wheezes/rales/rhonchi noted. Chest nontender. No accessory muscle usage noted or decreased air movement noted. Abdomen: Soft and nontender. Bowel sounds normal in all 4 quadrants. No distention noted. No organomegaly noted. No visible injury noted. Back: No CVA tenderness. Full range of motion noted. No rashes/lesion/induration/fluctuance or signs of infection noted. Skin: Skin warm and dry. Normal skin color. Normal skin turgor. No rashes/lesions/lacerations noted. Extremities: No lower extremity edema. No calf tenderness is noted. Extremities exhibit normal range of motion. Extremities nontender. Neuro: Oriented X 3. No motor deficit. No sensory deficit. Reflexes normal. Normal steady gait. No focal neuro deficits noted. Vascular: + radial pulses/+ 2 distal pedal pulses/+2 dorsalis pedis b/l. Normal cap refill. No cyanosis noted to upper extremity nails and lower extremity toes nails. Course Course Course Narrative: 46-year-old female with a past medical history of asthma who tested positive for COVID-19 on 03/02/2021 although has had symptoms for the past 6 days presenting to the ED with complaints of worsening COVID like symptoms which include nasal congestion/rhinorrhea, sore throat, cough nonproductive with chest tightness and shortness of breath. She reports that when she was seen here on 03/02/2021 she was not given any antibiotics and she would like some antibiotics. I explained to her for COVID-19 this is a virus and not bacterial infection usually we do not prescribe antibiotics unless there is evidence of pneumonia. Her chest x-ray on 03/02/2021 was negative for pneumonia or any other acute processes. She denies any measured fevers, dizziness, headaches, neck pain/stiffness, trouble swallowing, chest pain, dyspnea on exertion, orthopnea, palpitations, lower extremity edema or calf tenderness, nausea/vomiting/diarrhea constipation, abdominal pain, dysuria, focal weakness, recent travel or any other symptoms complaints or concerns at this time. On exam patient is alert oriented x3. Not in any acute distress. Vital signs are stable within normal limits. Oxygen saturation 98% on room air. Lungs clear to auscultation. CV RRR. abd is soft and nontender. No LE edema or calf tenderness noted. Will obtain a chest x-ray and provide an albuterol inhaler if chest x-ray is negative no labs or any additional imaging would be indicated at this time as patient's vitals are within normal limits and she denies any evidence of nausea/vomiting or diarrhea or any other symptoms. She reports her chest tightness not actual chest pain. Therefore less concerned for ACS. If chest x-ray negative will DC home with symptomatic treatment instructions return if any new or worsening symptoms and to follow up with primary care provider and to self isolate per CDC guidelines. Patient with at bedside understand agree this plan. MDM - URI/Sore Throat Medical Records Attestation: I reviewed the patient's medical records. Imaging Data Chest x-ray: Attestation: I personally reviewed and interpreted this imaging study as follows: Radiologist's impression: FINDINGS: The lungs are clear. The cardiomediastinal silhouette is normal in size. There is no pleural effusion or pneumothorax. No acute osseous abnormality. XR/XR chest 2V IMPRESSION: No acute cardiopulmonary findings. Discharge Plan Discharge Clinical Impression: COVID-19 Patient Disposition: Home, Self-Care Instructions: COVID-19 (Coronavirus Disease 2019) (ED) Additional Instructions: Please follow CDC guidelines for self isolation restrictions quarantine for COVID Prescriptions: New albuterol sulfate 90 mcg/actuation HFA aerosol inhaler 1 inh inhalation QID PRN (Reason: shortness of breath or wheezing) Qty: 8.5 RF: 0 albuterol sulfate 0.63 mg/3 mL solution for nebulization 0.63 mg inhalation QID PRN (Reason: shortness of breath or wheezing) Qty: 75 RF: 0 azithromycin 250 mg tablet See Rx Instructions .ROUTE .COMPLEX Qty: 6 RF: 0 (DME) AeroEclipse II Nebulizer Misc See Rx Instructions .ROUTE .MEDSUPPLY Qty: 1 RF: 0 codeine-guaifenesin [Guaifenesin AC] 10-100 mg/5 mL liquid 5 ml PO Q6H PRN (Reason: cold symptoms) Qty: 120 RF: 0 prednisone 20 mg tablet 40 mg PO DAILY 5 Days Qty: 10 RF: 0 No Action Humulin R U-500 (Conc) Insulin 500 unit/mL solution 200 unit subcut DAILY Qty: 20 RF: 11 (DME) cane Device See Rx Instructions .ROUTE .MEDSUPPLY Qty: 1 RF: 0 albuterol sulfate 2.5 mg /3 mL (0.083 %) solution for nebulization 2.5 mg inhalation QID PRN (Reason: bronchospasm) 30 Days Qty: 360 RF: 4 (DME) blood-glucose meter [FreeStyle Lite Meter] Kit See Rx Instructions .ROUTE .MEDSUPPLY Qty: 1 RF: 0 sucralfate 100 mg/mL suspension 10 ml PO Q6H Qty: 3780 RF: 0 cyanocobalamin (vitamin B-12) 1,000 mcg/mL solution 1,000 mcg subcut .once a month 30 Days Qty: 1 RF: 6 montelukast 10 mg tablet 10 mg PO DAILY 90 Days Qty: 90 RF: 3 lisinopril 5 mg tablet 5 mg PO DAILY Qty: 90 RF: 1 (DME) FreeStyle Lite Strips Strip See Rx Instructions .ROUTE .MEDSUPPLY Qty: 100 RF: 8 Zyrtec 10 mg capsule 10 mg PO DAILY 90 Days Qty: 90 RF: 3 Trulicity 1.5 mg/0.5 mL pen injector 1.5 mg subcut QWEEK 30 Days Qty: 2.5 RF: 6 (DME) BD Safety-Jone Detachable Needl 3 mL 25 gauge x 5/8 syringe See Rx Instructions .ROUTE .MEDSUPPLY Qty: 1 RF: 6 oxycodone-acetaminophen 5-325 mg tablet 1 tab PO TID PRN (Reason: pain) 30 Days Qty: 90 RF: 0 citalopram 20 mg tablet 1 tab PO DAILY RF: 0 buspirone 10 mg tablet 1 tab PO TID RF: 0 thiamine HCl (vitamin B1) 100 mg tablet 1 tab PO DAILY RF: 0 vitamin A 10,000 unit capsule 1 cap PO DAILY RF: 0 hydroxyzine HCl 25 mg tablet 1 - 2 tab PO QID RF: 0 loperamide [Anti-Diarrheal (loperamide)] 2 mg capsule 2 mg PO Q6H PRN (Reason: loose stool) Qty: 10 RF: 0 ondansetron 4 mg tablet,disintegrating 4 mg PO Q6-8H PRN (Reason: nausea and vomiting) Qty: 10 RF: 0 furosemide 20 mg tablet 20 mg PO BID 90 Days Qty: 180 RF: 3 fluticasone propionate 50 mcg/actuation spray,suspension 1 spray intranasal DAILY Qty: 16 RF: 4 rosuvastatin 10 mg tablet 10 mg PO DAILY 90 Days Qty: 90 RF: 1 diclofenac sodium 75 mg tablet,delayed release (DR/EC) 75 mg PO BID RF: 0 artifi.tears(hypromellose)(PF) 0.3 % drops 1 drp ophthalmic-Right Q4-6H PRN (Reason: Dry Eyes) RF: 0 ascorbate calcium (vitamin C) 500 mg tablet 500 mg PO DAILY RF: 0 trazodone 100 mg tablet 100 mg PO BEDTIME PRN (Reason: Sleep) RF: 0 nortriptyline 10 mg capsule 10 mg PO BEDTIME RF: 0 docusate sodium 100 mg capsule 100 mg PO DAILY RF: 0 Invokana 300 mg tablet 300 mg PO DAILY 30 Days Qty: 30 RF: 6 cholecalciferol (vitamin D3) 125 mcg (5,000 unit) capsule 125 mcg PO DAILY 30 Days Qty: 30 RF: 6 pantoprazole 40 mg tablet,delayed release (DR/EC) 40 mg PO DAILY 30 Days Qty: 30 RF: 11 tizanidine 4 mg tablet 4 mg PO Q8H PRN (Reason: muscle spasticity) 30 Days Qty: 90 RF: 8 Referrals: Analilia Chaidez MD [Primary Care Provider] - 2 days Stand Alone Forms: Work/School Release Print Language: Micronesian
[2021-03-04] MEDS: Albuterol Sulfate 90 MCG 8 GM INHALER 2 PUFF INHALE (10:20)
== END 2021-03-04 10:36 | disposition home or self-care (01) ==
PROVIDERS: Emergency Provider Internal Medicine; PCP Internal Medicine
DX: U07.1 COVID-19 (principal); J45.909 Unspecified asthma, uncomplicated; E11.9 Type 2 diabetes mellitus without complications; I10 Essential (primary) hypertension; E78.5 Hyperlipidemia, unspecified; Z79.4 Long term (current) use of insulin
CPT/HCPCS: 71046; 93005; 94640; 99283; 99284

== ENCOUNTER 2021-03-12 08:12 | Outpatient (REF) | payer OTHER, SELFPAY ==
[2021-03-12 11:30] LABS: Binax Internal Control QC Valid; Binax Now Covid-19 Ag Negative (Negative)
== END 2021-03-12 08:13 | disposition home or self-care (01) ==
LOC: HO.LAB 08:12
PROVIDERS: Visit Provider Internal Medicine
DX: Z20.822 Contact with and (suspected) exposure to COVID-19 (principal)
CPT/HCPCS: C9803

== ENCOUNTER → 2021-04-12 09:37 | Outpatient (BNVA) | payer OTHER, SELFPAY | PROVIDERS: PCP Internal Medicine; Referring Provider Internal Medicine; Visit Provider Physician Assistant | DX: E66.9 Obesity, unspecified (principal); Z68.34 Body mass index [BMI] 34.0-34.9, adult; K91.2 Postsurgical malabsorption, not elsewhere classified; Z90.3 Acquired absence of stomach [part of]; K52.9 Noninfective gastroenteritis and colitis, unspecified; Z86.010 Personal history of colon polyps | CPT/HCPCS: 99212 ==

== ENCOUNTER 2021-04-14 08:00 | Outpatient (REF) | payer OTHER, SELFPAY ==
[2021-04-14 08:49] LABS: Estimated Average Glucose 249 mg/dL; Hemoglobin A1c % 10.3 %
[2021-04-14 09:29] LABS: Erythrocyte Sedimentation Rate 13 MM/HR (0-20)
[2021-04-14 09:38] LABS: Alanine Aminotransferase 18 U/L (0-31); Albumin Level 3.8 g/dL (3.5-5.0); Alkaline Phosphatase 121 U/L (39-117); Anion Gap 9 (12-20); Aspartate Amino Transferase 14 U/L (5-31); Bilirubin Total 0.5 mg/dL (0.0-1.0); Blood Urea Nitrogen 9 mg/dL (9-16); C Reactive Protein 0.95 mg/dL (< or = 0.50); Calcium 9.1 mg/dL (8.4-10.2); Carbon Dioxide 29 mmol/L (22-29); Chloride 103 mmol/L (96-108); Cholesterol 154 mg/dL; Estimated Glomerular Filt Rate > 60; Ferritin 10 ng/mL (10-250); Glucose Fasting 173 mg/dL (60-99); HDL Cholesterol 56 mg/dL; Iron 57 mcg/dL (30-160); LDL Cholesterol Calculated 79 mg/dl; Percent Iron Saturation 14 % (15-50); Potassium 4.2 mmol/L (3.3-5.1); Sodium 137 mmol/L (135-145); Thyroid Stimulating Hormone 1.86 uIU/mL (0.32-4.0); Total Iron Binding Capacity 419 mcg/dL (228-428); Total Protein 6.7 g/dL (6.5-8.0); Triglycerides 98 mg/dL; Unsaturated Iron Binding 362 ug/dL
[2021-04-14 10:09] LABS: Vitamin D 25-OH Total 13.1 ng/mL (>30)
[2021-04-14 10:46] LABS: Creatinine Urine 184.84 mg/dL; Microalbum/Creatinine Ratio Ur 17.3 ug/mg cr
[2021-04-16 09:43] LABS: Folate 11.2 ng/mL (> or = 4.0); Vitamin B12 212 pg/mL (200-900)
[2021-04-17 13:51] LABS: Transglutaminase IgA <1.0 U/mL
[2021-04-17 21:01] LABS: Endomysial IgA Antibody Negative (Negative)
[2021-04-18 06:37] LABS: Zinc 63 mcg/dL (60-130)
[2021-04-18 21:01] LABS: Vitamin D 25-OH, D2 <4 ng/mL; Vitamin D 25-OH, D3 12 ng/mL; Vitamin D 25-OH, Total 12 ng/mL (30-100)
[2021-04-19 13:26] LABS: Vitamin B1 9 nmol/L (8-30)
[2021-04-19 17:51] LABS: Vitamin A 30 mcg/dL (38-98)
== END 2021-04-14 08:01 | disposition home or self-care (01) ==
LOC: HO.LAB 08:00
PROVIDERS: Absent Provider Physician Assistant Surgical; PCP Internal Medicine; Visit Provider Physician Assistant
DX: K91.2 Postsurgical malabsorption, not elsewhere classified (principal); K59.09 Other constipation; K52.9 Noninfective gastroenteritis and colitis, unspecified; E55.9 Vitamin D deficiency, unspecified; E53.8 Deficiency of other specified B group vitamins; E06.3 Autoimmune thyroiditis; E11.65 Type 2 diabetes mellitus with hyperglycemia; Z79.4 Long term (current) use of insulin; Z90.3 Acquired absence of stomach [part of]
CPT/HCPCS: 36415; 80048; 80053; 80061; 82043; 82306; 82607; 82728; 82746; 83036; 83540; 84425; 84443; 84590; 84630; 85652; 86140; 86231; 86364

== ENCOUNTER → 2021-04-25 10:28 | Outpatient (BNVA) | payer OTHER, SELFPAY | PROVIDERS: PCP Internal Medicine; Visit Provider Internal Medicine | DX: E11.65 Type 2 diabetes mellitus with hyperglycemia (principal); E78.2 Mixed hyperlipidemia; E55.9 Vitamin D deficiency, unspecified; E04.9 Nontoxic goiter, unspecified; I10 Essential (primary) hypertension; Z79.4 Long term (current) use of insulin | CPT/HCPCS: 82947; 99212 ==

== ENCOUNTER → 2021-05-16 08:37 | Outpatient (BNVA) | payer OTHER, SELFPAY | PROVIDERS: PCP Internal Medicine; Visit Provider Registered Nurse Diabetes Educator | DX: E11.21 Type 2 diabetes mellitus with diabetic nephropathy (principal); E11.65 Type 2 diabetes mellitus with hyperglycemia; F17.210 Nicotine dependence, cigarettes, uncomplicated; Z46.81 Encounter for fitting and adjustment of insulin pump; Z79.4 Long term (current) use of insulin | CPT/HCPCS: 99212 ==

== ENCOUNTER 2021-05-18 15:51 | Outpatient (REF) | payer OTHER, SELFPAY ==
--- NOTE | ~2021-05-18 | US_ITS ---
EXAMINATION: US THYROID CLINICAL INFORMATION: Nontoxic goiter, unspecified. COMPARISON: None TECHNIQUE: Linear transducer grayscale and color Doppler examination with attention to the region of the thyroid. FINDINGS: SIZE: Measurements of the thyroid lobes and nodules are given in sagittal, anteroposterior and transverse dimensions respectively. Right Thyroid Lobe: 4.9 x 1.3 x 2.0 cm, volume 6.7 mL. Parenchyma: The gland echotexture is homogeneous. Thyroid vascularity is normal. Left Thyroid Lobe: 5.1 x 1.2 x 1.7 cm, volume 5.4 mL. Parenchyma: The gland echotexture is homogeneous. Thyroid vascularity is normal. Isthmus: 0.45 cm in maximum AP dimension. No focal thyroid nodule is seen. NODES: No lymphadenopathy is seen in the tissue surrounding the thyroid gland. US/US thyroid IMPRESSION: Normal thyroid ultrasound.
== END 2021-05-18 15:52 | disposition home or self-care (01) ==
LOC: HO.US 15:51
PROVIDERS: PCP Internal Medicine; Visit Provider Internal Medicine
DX: E04.9 Nontoxic goiter, unspecified (principal); E66.9 Obesity, unspecified; Z68.34 Body mass index [BMI] 34.0-34.9, adult
CPT/HCPCS: 76536; 99212

== ENCOUNTER 2021-05-31 20:31 | Emergency (ER) | payer OTHER, SELFPAY ==
--- NOTE | ~2021-05-31 | XR_ITS ---
EXAMINATION: XR FOOT, RIGHT CLINICAL INFORMATION: Small ulcer, unspecified site. COMPARISON: Radiograph of the right foot dated from 12/04/2018. TECHNIQUE: AP, lateral, and oblique views of the right foot. FINDINGS: There is diffuse soft tissue swelling and scattered vascular calcifications. There is no subcutaneous air or unexpected radiopaque foreign bodies. No cortical disruption or erosions to suspect osteomyelitis. No acute fractures or malalignment. Stable small calcifications adjacent to the head of the first metatarsal bone. XR/XR foot RT min 3V IMPRESSION: Diffuse soft tissue swelling and vascular calcifications. No radiographic evidence of osteomyelitis. However, early osteomyelitis can be radiographically occult, and therefore an interval radiographic after a few days or correlation with an MR could be obtained if clinically indicated. No acute osseous fractures.
[2021-05-31 21:54] VITALS: BP 149/81; PULSE 105; RESP 17; TEMP 37.4; O2SAT 98; BMI 34.1
--- NOTE | 2021-05-31 22:37 | ED_ITS ---
HPI - Extremity Injury (Lower) General Chief Complaint: Extremity Injury, Lower Stated Complaint: right foot pain Time Seen by Provider: 05/31/21 22:07 Source: patient Mode of arrival: ambulatory Limitations: no limitations History of Present Illness HPI Narrative: 46-year-old female medical history significant for diabetes presenting to the emergency department with complaints of right 2nd toe pain x1 week progressively worsening. Patient tells me that she has severe pain that is worse with ambulation better at rest. She noted that there is something white underneath her 2nd toe, she tells me that she call to schedule an appointment with her anthropologist physical that she can see a anthropologist physical until the end of this month. She reports 10/10 pain to the site. She also reports that the top of her foot has been more warm than usual. Patient tells me that at baseline she has diabetic neuropathy however she is having decreased sensation to the right 2nd toe. She denies fevers, chills, chest pain, shortness of breath, nausea, vomiting. MD complaint: other (Toe pain) Onset (ago): week(s) (1) Place: home Severity: severe Relieving factors: nothing Exacerbating factors: nothing Other symptoms: none Related Data Home Medications Medication Instructions Recorded Confirmed artifi.tears(hypromellose)(PF) 0.3 1 drp OPHTHALMIC-RIGHT Q4-6H PRN 12/10/19 05/18/21 % eye drops ascorbate calcium (vitamin C) 500 500 mg PO DAILY 12/10/19 05/18/21 mg tablet diclofenac sodium 75 mg 75 mg PO BID 12/10/19 05/18/21 tablet,delayed release docusate sodium 100 mg capsule 100 mg PO DAILY 12/10/19 05/18/21 nortriptyline 10 mg capsule 10 mg PO BEDTIME 12/10/19 05/18/21 trazodone 100 mg tablet 100 mg PO BEDTIME PRN 12/10/19 05/18/21 buspirone 10 mg tablet 1 tab PO TID 12/31/19 05/18/21 citalopram 20 mg tablet 1 tab PO DAILY 12/31/19 05/18/21 hydroxyzine HCl 25 mg tablet 1 - 2 tab PO QID 12/31/19 05/18/21 thiamine HCl (vitamin B1) 100 mg 1 tab PO DAILY 12/31/19 05/18/21 tablet vitamin A 10,000 unit capsule 1 cap PO DAILY 12/31/19 05/18/21 Previous Rx's Medication Instructions Recorded loperamide 2 mg capsule 2 mg PO Q6H PRN #10 cap 01/01/20 (Anti-Diarrheal (loperamide)) ondansetron 4 mg disintegrating 4 mg PO Q6-8H PRN #10 tab 01/03/20 tablet pantoprazole 40 mg tablet,delayed 40 mg PO DAILY 30 Days #30 tab 05/11/20 release canagliflozin 300 mg tablet 300 mg PO DAILY 30 Days #30 tab 07/10/20 (Invokana) insulin regular hum U-500 conc 500 200 unit (0.4 mL) SUBCUT DAILY #20 07/29/20 unit/mL subcutaneous soln (Humulin ml R U-500 (Concentrated) Insulin) cane #1 ea 07/31/20 blood-glucose meter (FreeStyle #1 ea 09/05/20 Lite Meter) fluticasone propionate 50 1 spray INTRANASAL DAILY #16 ml 09/05/20 mcg/actuation nasal spray,suspension montelukast 10 mg tablet 10 mg PO DAILY 90 Days #90 tab 12/06/20 dulaglutide 1.5 mg/0.5 mL 1.5 mg (0.5 mL) SUBCUT QWEEK 30 01/25/21 subcutaneous pen injector Days #2.5 ml (Trulicity) syringe with needle, safety 3 mL #1 ea 01/25/21 25 gauge x 5/8 (BD Safety-Jone Detachable Needle) tizanidine 4 mg tablet 4 mg PO Q8H PRN 30 Days #90 tab 02/28/21 albuterol sulfate 0.63 mg/3 mL 0.63 mg (3 mL) INHALATION QID PRN 03/04/21 solution for nebulization #75 ml albuterol sulfate 90 mcg/actuation 1 inh INHALATION QID PRN #8.5 g 03/04/21 aerosol inhaler nebulizers (AeroEclipse II #1 ea 03/04/21 Nebulizer) hydrocortisone 1 %-pramoxine 1 % 1 appl DE BEDTIME PRN #10 g 04/12/21 rectal foam (Proctofoam HC) fluconazole 150 mg tablet 150 mg PO Q3D #2 tab 04/18/21 (Diflucan) terbinafine HCl 250 mg tablet 250 mg PO DAILY 90 Days #90 tab 04/18/21 cholecalciferol (vitamin D3) 1,250 1,250 mcg PO QWEEK 56 Days #8 cap 04/25/21 mcg (50,000 unit) capsule cholecalciferol (vitamin D3) 50 50 mcg PO DAILY 30 Days #30 cap 04/25/21 mcg (2,000 unit) capsule lisinopril 5 mg tablet 5 mg PO DAILY #90 tab 05/21/21 blood sugar diagnostic (FreeStyle #100 ea 05/23/21 Lite Strips) cetirizine 10 mg capsule (Zyrtec) 10 mg PO DAILY 90 Days #90 cap 05/23/21 oxycodone-acetaminophen 5 mg-325 1 tab PO Q8H PRN 30 Days #90 tab 05/23/21 mg tablet cyanocobalamin (vitamin B-12) 1,000 mcg SUBCUT .once a month 30 05/27/21 1,000 mcg/mL injection solution Days #1 ml furosemide 20 mg tablet 20 mg PO BID 90 Days #180 tab 05/28/21 rosuvastatin 10 mg tablet 10 mg PO DAILY 90 Days #90 tab 05/28/21 cephalexin 500 mg tablet 500 mg PO Q6H 7 Days #28 tab 05/31/21 doxycycline hyclate 100 mg capsule 100 mg PO BID 7 Days #14 cap 05/31/21 Allergies Allergy/AdvReac Type Severity Reaction Status Date / Time adhesive tape [ADHESIVE TAPE] Allergy Intermediate RASH Verified 05/31/21 21:57 pioglitazone [From ACTOS] Allergy Intermediate facial Verified 05/31/21 21:57 edema,rash Review of Systems Review of Systems: Constitutional : No Weight loss, No Fever, No Chills, No Fatigue, No Malaise ENT/Mouth : No sore throat, No Rhinorrhea Eyes: No Eye Pain, No Swelling, No Redness Cardiovascular : No Chest Pain, No SOB, No Dyspnea on Exertion, No Orthopnea, No Edema, No Palpitations Respiratory : No Cough, No Sputum, No Wheezing Gastrointestinal : No Nausea, No Vomiting, No Diarrhea, No Constipation, No abdominal Pain, No Hematochezia, No Melena Genitourinary : No Dysuria, No Urinary Frequency, No Hematuria, Musculoskeletal : No joint pain, No Myalgias, No Joint Swelling Skin : + Skin Lesions, No rash Neuro : No Weakness, No Numbness, No Dizziness, No Headache Psych : No Anxiety/Panic, No Depression All other systems reviewed and are negative Yes all other systems are reviewed and are negative [facility] Past Medical History Attestation statement: The following information was validated with the patient. Source: old records reviewed and nursing notes reviewed Medical History Acid reflux Anxiety and depression Asthma Autoimmune thyroiditis B12 deficiency Back pain Carpal tunnel syndrome Chronic fatigue Daytime hypersomnia Diabetes mellitus Diabetic nephropathy associated with type 2 diabetes mellitus Diabetic polyneuropathy associated with type 2 diabetes mellitus Diabetic retinopathy associated with type 2 diabetes mellitus Fibromyalgia GERD (gastroesophageal reflux disease) Goiter Tracee's disease History of colonic polyps History of Graves' disease History of ulcer disease Hyperlipidemia Hypertension Iron (Fe) deficiency anemia Left ankle pain Left leg pain 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 (current) use of insulin Lumbar degenerative disc disease Morbid obesity Obesity Onychomycosis Polyarthralgia Sessile colonic polyp 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, thoracic, without myelopathy T2DM (type 2 diabetes mellitus) Vitamin D deficiency Surgical History H/O endoscopy H/O gastric bypass History of appendectomy History of carpal tunnel surgery of left wrist History of carpal tunnel surgery of right wrist History of cataract extraction History of lumpectomy of left breast Hx laparoscopic cholecystectomy Hx of section Hx of colonoscopy Hx of esophagogastroduodenoscopy Family History Family History Father Diabetes Hypertension Mother Diabetes Hypertension Maternal Grandmother Colon cancer Paternal Aunt Cancer of ear Social History Social History Household Members: Family Housing: House Alcohol intake: never Patient Tobacco Use Status: Former Tobacco user Quit Date: 2013 Tobacco use type: Cigarette Cigarette Packs Per Day: 1 Cigarettes Per Day: 20.0 Years Smoked: 20 e-Cigarette/Vaping Use: Never Used Second Hand Smoke Exposure: No Advance Directives: No Advance Directives Information Provided: No service: No Current occupational status: disabled Physical Exam Vital Signs: Vital Signs: Last Vital Signs Temp 99.4 F 05/31/21 21:54 Pulse 105 H 05/31/21 21:54 Resp 17 05/31/21 21:54 BP 149/81 H 05/31/21 21:54 Pulse Ox 98 05/31/21 21:54 BMI result Body Mass Index 34.1 VSS Appearance: Alert.? Oriented X3.? No acute distress.? Head: Normocephalic, atraumatic, no step-offs or deformities Eyes: Pupils equal, round and reactive to light.? ENT: Pharynx normal.? Neck: Normal inspection.? Neck supple.? CVS: Normal heart rate and rhythm.? Pulses normal.? Respiratory: No respiratory distress.? Breath sounds normal.? Abdomen: Soft and nontender.? Skin: Skin warm and dry.? Normal skin color.? Normal skin turgor.? Extremities: No lower extremity edema.? No calf ttp. 5/5 strength to bilateral upper and lower extremities + callus to the bottom aspect of right second toe, with surrounding warmth and erythema. + Warmth noted to the ventral aspect of right foot. Back: No midline tenderness, no C-spine tenderness, full range of motion, no CVA tenderness bilaterally Neuro: Oriented X 3.? No motor deficit.? +decreased sensation to bilateral lower extremities patient does have a history of diabetic neuropathy.. CN 2-12 intact . Proprioception intact to bilateral lower extremities and all toes.DP and PT pulses 2+ equal and bilateral. Course Reevaluation(s) Reevaluation #1: X-ray of the right foot shows soft-tissue swelling and pelvis of occasions. No evidence of radiographic osteomyelitis. Based off patient's history and physical examination will treat her with doxycycline and Keflex. Advised her to follow-up with Podiatry as soon as possible and to follow-up with her PCP. Outlined worrisome signs and symptoms On her discharge in advised her to return if any these arise. Comfortable w/ discharge home Time: 23:21 MDM - Extremity Injury (Lower) MDM Narrative Medical decision making narrative: 2300 46 yo f pmhx dm presents w/ complaints of pain, warmth and swelling to right second toe. PE significant for callus to the bottom aspect of right second toe, with surrounding warmth and erythema. There is also warmth noted to the ventral aspect of right foot w/ some errythema. No pain w/ rom of all toes. Plan- discussed w/ Dr. Jesus who evaluated patient aswell, deroofed and cleaned calus. Xray Low suspicon for osteo Medical Records Attestation: I reviewed the patient's medical records. Lab Data Attestation: I reviewed the patient's lab results. Critical Care Time Critical Care Time Critical Care Time: No Discharge Plan Discharge Clinical Impression: Callus of toe, Cellulitis Patient Disposition: Home, Self-Care Instructions: Cellulitis (ED) Additional Instructions: Take your medications as prescribed. If you were prescribed antibiotics today, it is important that you take your medication to their entirety, do not skip any doses, do not finish them early. Follow-up with your primary care provider this week. Follow-up with Podiatry as soon as possible. I would call him tomorrow to schedule an appointment. Return to the emergency department with new or worsening symptoms. Such as fevers, chills, chest pain, shortness of breath, nausea, vomiting, dizziness, headache, vision changes, lethargy , worsening redness, swelling or warmth, worsening pain. In case of emergency call 911 XR/XR foot RT min 3V IMPRESSION: Diffuse soft tissue swelling and vascular calcifications. No radiographic evidence of osteomyelitis. However, early osteomyelitis can be radiographically occult, and therefore an interval radiographic after a few days or correlation with an MR could be obtained if clinically indicated. No acute osseous fractures. [facility]. [address] [place] [address] Prescriptions: New doxycycline hyclate 100 mg capsule 100 mg PO BID 7 Days Qty: 14 0RF cephalexin 500 mg tablet 500 mg PO Q6H 7 Days Qty: 28 0RF No Action Humulin R U-500 (Conc) Insulin 500 unit/mL solution 200 unit subcut DAILY Qty: 20 11RF (DME) cane Device See Rx Instructions .ROUTE .MEDSUPPLY Qty: 1 0RF Rx Instructions: As directed (DME) blood-glucose meter [FreeStyle Lite Meter] Kit See Rx Instructions .ROUTE .MEDSUPPLY Qty: 1 0RF Rx Instructions: TEST 4 TIMES DAILY montelukast 10 mg tablet 10 mg PO DAILY 90 Days Qty: 90 3RF Trulicity 1.5 mg/0.5 mL pen injector 1.5 mg subcut QWEEK 30 Days Qty: 2.5 6RF Rx Instructions: dose increased (DME) BD Safety-Jone Detachable Needl 3 mL 25 gauge x 5/8 syringe See Rx Instructions .ROUTE .MEDSUPPLY Qty: 1 6RF Rx Instructions: Use 1 syringe once a month lisinopril 5 mg tablet 5 mg PO DAILY Qty: 90 11RF (DME) FreeStyle Lite Strips Strip See Rx Instructions .ROUTE .MEDSUPPLY Qty: 100 8RF Rx Instructions: TEST 4 TIMES DAILY Zyrtec 10 mg capsule 10 mg PO DAILY 90 Days Qty: 90 3RF oxycodone-acetaminophen 5-325 mg tablet 1 tab PO Q8H PRN (Reason: pain) 30 Days Qty: 90 0RF cyanocobalamin (vitamin B-12) 1,000 mcg/mL solution 1,000 mcg subcut .once a month 30 Days Qty: 1 6RF rosuvastatin 10 mg tablet 10 mg PO DAILY 90 Days Qty: 90 1RF furosemide 20 mg tablet 20 mg PO BID 90 Days Qty: 180 1RF citalopram 20 mg tablet 1 tab PO DAILY 0RF buspirone 10 mg tablet 1 tab PO TID 0RF thiamine HCl (vitamin B1) 100 mg tablet 1 tab PO DAILY 0RF vitamin A 10,000 unit capsule 1 cap PO DAILY 0RF hydroxyzine HCl 25 mg tablet 1 - 2 tab PO QID 0RF loperamide [Anti-Diarrheal (loperamide)] 2 mg capsule 2 mg PO Q6H PRN (Reason: loose stool) Qty: 10 0RF ondansetron 4 mg tablet,disintegrating 4 mg PO Q6-8H PRN (Reason: nausea and vomiting) Qty: 10 0RF albuterol sulfate 90 mcg/actuation HFA aerosol inhaler 1 inh inhalation QID PRN (Reason: shortness of breath or wheezing) Qty: 8.5 0RF albuterol sulfate 0.63 mg/3 mL solution for nebulization 0.63 mg inhalation QID PRN (Reason: shortness of breath or wheezing) Qty: 75 0RF (DME) AeroEclipse II Nebulizer Misc See Rx Instructions .ROUTE .MEDSUPPLY Qty: 1 0RF Rx Instructions: As directed fluticasone propionate 50 mcg/actuation spray,suspension 1 spray intranasal DAILY Qty: 16 4RF terbinafine HCl 250 mg tablet 250 mg PO DAILY 90 Days Qty: 90 0RF fluconazole [Diflucan] 150 mg tablet 150 mg PO Q3D Qty: 2 0RF diclofenac sodium 75 mg tablet,delayed release (DR/EC) 75 mg PO BID 0RF artifi.tears(hypromellose)(PF) 0.3 % drops 1 drp ophthalmic-Right Q4-6H PRN (Reason: Dry Eyes) 0RF ascorbate calcium (vitamin C) 500 mg tablet 500 mg PO DAILY 0RF trazodone 100 mg tablet 100 mg PO BEDTIME PRN (Reason: Sleep) 0RF nortriptyline 10 mg capsule 10 mg PO BEDTIME 0RF docusate sodium 100 mg capsule 100 mg PO DAILY 0RF Invokana 300 mg tablet 300 mg PO DAILY 30 Days Qty: 30 6RF pantoprazole 40 mg tablet,delayed release (DR/EC) 40 mg PO DAILY 30 Days Qty: 30 11RF cholecalciferol (vitamin D3) 50 mcg (2,000 unit) capsule 50 mcg PO DAILY 30 Days Qty: 30 11RF cholecalciferol (vitamin D3) 1,250 mcg (50,000 unit) capsule 1,250 mcg PO QWEEK 56 Days Qty: 8 0RF tizanidine 4 mg tablet 4 mg PO Q8H PRN (Reason: muscle spasticity) 30 Days Qty: 90 8RF Proctofoam HC 1-1 % foam 1 appl DE BEDTIME PRN (Reason: hemorrhoids) Qty: 10 1RF Referrals: Analilia Chaidez MD [Primary Care Provider] - 1 day Stand Alone Forms: Work/School Release
[2021-06-01] MEDS: cephALEXin 500 MG CAPSULE PO (00:01)
== END 2021-06-01 00:06 | disposition home or self-care (01) ==
PROVIDERS: Emergency Provider Emergency Medicine; PCP Internal Medicine
DX: L03.031 Cellulitis of right toe (principal); L84 Corns and callosities; M79.671 Pain in right foot; E11.21 Type 2 diabetes mellitus with diabetic nephropathy; E78.5 Hyperlipidemia, unspecified; Z79.4 Long term (current) use of insulin
CPT/HCPCS: 73630; 99283

== ENCOUNTER 2021-06-11 08:57 | Outpatient (REF) | payer OTHER, SELFPAY ==
--- NOTE | ~2021-06-11 | XR_ITS ---
EXAMINATION: XR FOOT, RIGHT CLINICAL INFORMATION: Right foot pain. COMPARISON: Right foot done on 05/31/2021. TECHNIQUE: AP, lateral, and oblique views of the right foot. FINDINGS: Mild hallux valgus and subtle linear soft tissue calcification overlying the head of the first metatarsal appear unchanged. No radiographic evidence of any cortical destruction or periosteal reaction or soft tissue gas present. Incidental note is made of mild degenerative osteoarthrosis of the talonavicular and intertarsal joints. Enthesopathy at the insertional site of the Achilles tendon to the calcaneus is also noted. Overall, no significant change since 05/31/2021. XR/XR foot RT min 3V IMPRESSION: No significant change since 05/31/2021.
== END 2021-06-11 08:58 | disposition home or self-care (01) ==
LOC: HO.XRAY 08:57
PROVIDERS: PCP Internal Medicine; Visit Provider Internal Medicine
DX: L03.031 Cellulitis of right toe (principal)
CPT/HCPCS: 73630

== ENCOUNTER → 2021-07-27 08:49 | Outpatient (BNVA) | payer OTHER, SELFPAY | PROVIDERS: PCP Internal Medicine; Visit Provider Registered Nurse Diabetes Educator | DX: E11.65 Type 2 diabetes mellitus with hyperglycemia (principal); Z79.4 Long term (current) use of insulin; Z46.81 Encounter for fitting and adjustment of insulin pump | CPT/HCPCS: 99211 ==

== ENCOUNTER → 2021-08-16 10:04 | Outpatient (BNVA) | payer OTHER, SELFPAY | PROVIDERS: PCP Internal Medicine; Visit Provider Registered Nurse Diabetes Educator | DX: Z46.81 Encounter for fitting and adjustment of insulin pump (principal); E11.65 Type 2 diabetes mellitus with hyperglycemia | CPT/HCPCS: 99211 ==

== ENCOUNTER 2021-08-21 06:20 | Outpatient (REF) | payer OTHER, SELFPAY ==
[2021-08-21 08:36] LABS: Estimated Average Glucose 223 mg/dL; Hemoglobin A1c % 9.4 %
[2021-08-21 08:43] LABS: Alanine Aminotransferase 19 U/L (0-31); Albumin Level 3.9 g/dL (3.5-5.0); Alkaline Phosphatase 112 U/L (39-117); Anion Gap 12 (12-20); Aspartate Amino Transferase 15 U/L (5-31); Bilirubin Total 0.5 mg/dL (0.0-1.0); Blood Urea Nitrogen 8 mg/dL (9-16); Calcium 8.8 mg/dL (8.4-10.2); Carbon Dioxide 24 mmol/L (22-29); Chloride 103 mmol/L (96-108); Cholesterol 156 mg/dL; Estimated Glomerular Filt Rate > 60; Glucose Fasting 215 mg/dL (60-99); HDL Cholesterol 58 mg/dL; LDL Cholesterol Calculated 64 mg/dl; Potassium 4.2 mmol/L (3.3-5.1); Sodium 135 mmol/L (135-145); Total Protein 6.8 g/dL (6.5-8.0); Triglycerides 171 mg/dL
[2021-08-21 08:45] LABS: Thyroid Stimulating Hormone 2.64 uIU/mL (0.32-4.0); Vitamin D 25-OH Total 17.9 ng/mL (>30)
[2021-08-21 09:56] LABS: Vitamin B12 193 pg/mL (200-900)
[2021-08-21 10:32] LABS: Creatinine Urine 129.23 mg/dL; Microalbum/Creatinine Ratio Ur 56.4 ug/mg cr
== END 2021-08-21 06:21 | disposition home or self-care (01) ==
LOC: HO.LAB 06:20
PROVIDERS: Absent Provider Internal Medicine; PCP Internal Medicine; Visit Provider Internal Medicine
DX: E11.65 Type 2 diabetes mellitus with hyperglycemia (principal); E55.9 Vitamin D deficiency, unspecified; E06.3 Autoimmune thyroiditis; Z79.4 Long term (current) use of insulin
CPT/HCPCS: 36415; 80053; 80061; 82043; 82306; 82607; 83036; 84443

== ENCOUNTER 2021-11-13 17:49 | Outpatient (REF) | payer OTHER, SELFPAY ==
--- NOTE | ~2021-11-13 | US_ITS ---
EXAMINATION: US VENOUS ULTRASOUND WITH DOPPLER LOWER EXTREMITY, LEFT CLINICAL INFORMATION: Pain. COMPARISON: Left lower extremity ultrasound venous duplex study 06/06/2020. TECHNIQUE: Ultrasound of the deep veins is performed from the hip to the calf with compression sonography and color and pulse Doppler assessment. Spectral analysis with color-flow imaging is performed. FINDINGS: There is normal venous compression and respiratory variation and augmented flow. The visualized common femoral vein, superficial femoral vein, profunda femoral vein, popliteal vein, and the trifurcation region shows no evidence of deep venous thrombosis. There is no significant popliteal fossa cyst. If the patient's symptoms persist, followup ultrasound in 5 days 7 days might be of value to exclude proximal propagation from a non-visualized calf vein. US/US venous duplex LE IMPRESSION: No DVT demonstrated in the left lower extremity.
== END 2021-11-13 17:50 | disposition home or self-care (01) ==
LOC: HO.US 17:49
PROVIDERS: Visit Provider Internal Medicine
DX: M79.605 Pain in left leg (principal)
CPT/HCPCS: 93971

== ENCOUNTER → 2021-12-31 08:40 | Outpatient (BNVA) | payer OTHER, SELFPAY | PROVIDERS: PCP Internal Medicine; Visit Provider Physician Assistant | DX: M47.817 Spondylosis without myelopathy or radiculopathy, lumbosacral region (principal); M47.814 Spondylosis without myelopathy or radiculopathy, thoracic region; E66.01 Morbid (severe) obesity due to excess calories; K64.9 Unspecified hemorrhoids; K52.9 Noninfective gastroenteritis and colitis, unspecified; K21.9 Gastro-esophageal reflux disease without esophagitis; Z68.35 Body mass index [BMI] 35.0-35.9, adult | CPT/HCPCS: 99212 ==

== ENCOUNTER → 2022-02-28 10:52 | Outpatient (BNVA) | payer OTHER, SELFPAY | PROVIDERS: PCP Internal Medicine; Visit Provider Physician Assistant | DX: K21.9 Gastro-esophageal reflux disease without esophagitis (principal); K44.9 Diaphragmatic hernia without obstruction or gangrene; Z86.010 Personal history of colon polyps; Z79.899 Other long term (current) drug therapy | CPT/HCPCS: 99212 ==

== ENCOUNTER 2022-03-01 07:59 | Outpatient (REF) | payer OTHER, SELFPAY ==
--- NOTE | ~2022-03-01 | MM_ITS ---
EXAMINATION: MM SCREENING DIGITAL BREAST TOMOSYNTHESIS, BILATERAL CLINICAL INFORMATION: Screening. Asymptomatic. The lifetime risk of breast cancer based on the Tyrer-Cuzick Model is 15%. COMPARISON: Mammography: 02/26/2021, 02/23/2020, 02/19/2019 TECHNIQUE: Digital breast tomosynthesis is performed in both the craniocaudal and mediolateral oblique views along with computer-aided detection (CAD). Synthesized 2D images are generated from the tomosynthesis. FINDINGS: There are scattered areas of fibroglandular density (ACR BI-RADS breast composition Category b). There are no significant masses, abnormal calcifications, or other abnormalities. Parenchymal pattern is similar to prior studies and there is no developing density or architectural abnormality. Biopsy clip marker again noted posterior lower inner left breast. The axilla are unremarkable. No significant changes. MM/MM tomosynthesis screening BI IMPRESSION: No mammographic evidence of malignancy. ASSESSMENT: BI-RADS 1: Negative RECOMMENDATION: Routine annual mammography screening. This patient's information was entered into a reminder system with a target due date for their next mammogram.
== END 2022-03-01 08:00 | disposition home or self-care (01) ==
LOC: HO.MAMMO 07:59
PROVIDERS: PCP Internal Medicine; Visit Provider Internal Medicine
DX: Z12.31 Encounter for screening mammogram for malignant neoplasm of breast (principal)
CPT/HCPCS: 77063; 77067

== ENCOUNTER → 2022-03-11 08:43 | Outpatient (BNVA) | payer OTHER, SELFPAY | PROVIDERS: PCP Internal Medicine; Visit Provider Anesthesiology | DX: M47.817 Spondylosis without myelopathy or radiculopathy, lumbosacral region (principal); M47.814 Spondylosis without myelopathy or radiculopathy, thoracic region; E11.42 Type 2 diabetes mellitus with diabetic polyneuropathy; E11.21 Type 2 diabetes mellitus with diabetic nephropathy; E11.319 Type 2 diabetes mellitus with unspecified diabetic retinopathy without macular edema; E66.01 Morbid (severe) obesity due to excess calories; Z68.35 Body mass index [BMI] 35.0-35.9, adult; Z98.84 Bariatric surgery status; Z79.4 Long term (current) use of insulin | CPT/HCPCS: 20552; 99212; J2795 ==

== ENCOUNTER → 2022-04-08 09:32 | Outpatient (BNVA) | payer OTHER, SELFPAY | PROVIDERS: PCP Internal Medicine; Visit Provider Anesthesiology | DX: M47.817 Spondylosis without myelopathy or radiculopathy, lumbosacral region (principal); M47.814 Spondylosis without myelopathy or radiculopathy, thoracic region; E66.01 Morbid (severe) obesity due to excess calories; Z68.34 Body mass index [BMI] 34.0-34.9, adult | CPT/HCPCS: 99212 ==

== ENCOUNTER → 2022-04-22 07:49 | Outpatient (BNVA) | payer OTHER, SELFPAY | PROVIDERS: PCP Internal Medicine; Visit Provider Physician Assistant | DX: K21.9 Gastro-esophageal reflux disease without esophagitis (principal); K64.9 Unspecified hemorrhoids | CPT/HCPCS: 99212 ==

== ENCOUNTER 2022-05-25 07:41 | Outpatient (REF) | payer OTHER, SELFPAY ==
[2022-05-25 08:22] LABS: Hematocrit 35.2 % (37.0-47.0); Hemoglobin 11.2 g/dl (12.0-16.0); Mean Corpuscular HGB Conc 31.8 g/dl (31.0-35.0); Mean Corpuscular Hemoglobin 24.1 pg (27.0-33.0); Mean Corpuscular Volume 75.7 fL (80.0-98.0); Mean Platelet Volume 9.9 fL (9.4-12.3); Platelet Count 307 X10*3/uL (160-400); Red Blood Count 4.65 X10*6/uL (4.20-5.50); Red Cell Distribution Width 14.6 % (11.0-16.0); White Blood Count 6.4 X10*3/uL (4.8-10.8)
[2022-05-25 08:45] LABS: Estimated Average Glucose 266 mg/dL; Hemoglobin A1c % 10.9 %
[2022-05-25 09:12] LABS: Alanine Aminotransferase 20 U/L (0-31); Albumin Level 3.7 g/dL (3.5-5.0); Alkaline Phosphatase 108 U/L (39-117); Anion Gap 14 (12-20); Aspartate Amino Transferase 15 U/L (5-31); Bilirubin Total 0.6 mg/dL (0.0-1.0); Blood Urea Nitrogen 8 mg/dL (9-16); Calcium 8.5 mg/dL (8.4-10.2); Carbon Dioxide 22 mmol/L (22-29); Chloride 102 mmol/L (96-108); Cholesterol 193 mg/dL; Estimated Glomerular Filt Rate > 60; Glucose Fasting 272 mg/dL (60-99); HDL Cholesterol 64 mg/dL; LDL Cholesterol Calculated 108 mg/dl; Potassium 4.4 mmol/L (3.3-5.1); Sodium 134 mmol/L (135-145); Total Protein 6.6 g/dL (6.5-8.0); Triglycerides 108 mg/dL
[2022-05-25 09:13] LABS: Creatinine Urine 130.86 mg/dL; Microalbum/Creatinine Ratio Ur 308.7 ug/mg cr
[2022-05-25 09:40] LABS: Folate 13.3 ng/mL (> or = 4.0); TSH reflex Free T4 1.96 uIU/mL (0.32-4.0); Vitamin B12 248 pg/mL (200-900); Vitamin D 25-OH Total 17.1 ng/mL (>30)
[2022-05-29 18:24] LABS: Intrinsic Factor Antibodies Negative (Negative)
[2022-06-01 13:59] LABS: Parietal Cell Antibody 23.6 Unit (<=20.0)
== END 2022-05-25 07:42 | disposition home or self-care (01) ==
LOC: HO.LAB 07:41
PROVIDERS: PCP Internal Medicine; Visit Provider Nurse Practitioner Family
DX: E11.65 Type 2 diabetes mellitus with hyperglycemia (principal); E55.9 Vitamin D deficiency, unspecified; E53.8 Deficiency of other specified B group vitamins; E11.9 Type 2 diabetes mellitus without complications; E78.5 Hyperlipidemia, unspecified; E06.3 Autoimmune thyroiditis; Z79.4 Long term (current) use of insulin
CPT/HCPCS: 36415; 80053; 80061; 82043; 82306; 82607; 82746; 83036; 83516; 84443; 85027; 86340

== ENCOUNTER 2022-05-30 21:31 | Emergency (ER) | payer OTHER, SELFPAY ==
[2022-05-30 21:36] VITALS: BP 158/76; PULSE 101; RESP 20; TEMP 37.3; O2SAT 100; BMI 31.6
[2022-05-30 22:00] LABS: MANUAL DIFF FLAG NO
[2022-05-30 22:02] LABS: Appearance Urine Clear; Color Urine Yellow; Glucose Urine UA >=1000 mg/dL (Negative); Leukocyte Esterase Urine Negative (Negative); Nitrite Urine Negative (Negative); Specific Gravity - Urine >= 1.030 (1.005-1.025); UMIC TRIGGER UACC YES; Urine Blood Negative (Negative); Urine Ketones Negative (Negative); Urine Protein 30 (1+) mg/dL (Neg-Trace)
[2022-05-30 22:04] LABS: Basophils Percent Auto 0.2 % (0-2); Eosinophils Percent Auto 0.3 % (0-4); Hematocrit 35.6 % (37.0-47.0); Hemoglobin 11.5 g/dl (12.0-16.0); Imm Gran Abs Auto 0.04 X10*3/uL (0.00-0.03); Imm Gran Pct Auto 0.3 % (0.0-0.4); Lymphocytes Absolute Auto 1.8 X10*3/uL (1.2-4.9); Mean Corpuscular HGB Conc 32.3 g/dl (31.0-35.0); Mean Corpuscular Hemoglobin 24.3 pg (27.0-33.0); Mean Corpuscular Volume 75.1 fL (80.0-98.0); Mean Platelet Volume 9.5 fL (9.4-12.3); Monocytes Absolute Auto 0.9 X10*3/uL (0.1-1.2); Monocytes Percent Auto 7.7 % (2-11); Neutrophils Absolute Auto 9.3 x10*3/uL (2.0-8.3); Neutrophils Percent Auto 76.5 % (45-73); Platelet Count 311 X10*3/uL (160-400); Red Blood Count 4.74 X10*6/uL (4.20-5.50); Red Cell Distribution Width 14.4 % (11.0-16.0); White Blood Count 12.1 X10*3/uL (4.8-10.8)
[2022-05-30 22:16] LABS: Alanine Aminotransferase 18 U/L (0-31); Albumin Level 4.1 g/dL (3.5-5.0); Alkaline Phosphatase 118 U/L (39-117); Anion Gap 13 (12-20); Aspartate Amino Transferase 13 U/L (5-31); Bilirubin Direct < 0.2 mg/dL (0.0-0.5); Bilirubin Total 0.4 mg/dL (0.0-1.0); Blood Urea Nitrogen 12 mg/dL (9-16); Calcium 9.2 mg/dL (8.4-10.2); Carbon Dioxide 26 mmol/L (22-29); Chloride 100 mmol/L (96-108); Creatinine Clr Calc Pharmacy 116.2; Estimated Glomerular Filt Rate > 60; Glucose Random 223 mg/dL (60-115); Lipase 34 U/L (8-78); Potassium 4.2 mmol/L (3.3-5.1); Sodium 135 mmol/L (135-145); Total Protein 7.1 g/dL (6.5-8.0)
[2022-05-30 22:23] LABS: COVID-19 Test Negative (Negative); IDNOW Serial# 08D9AD1C; IDNOW Serial# BCCEAD1C; Influenza A Negative (Negative); Influenza B2 Negative (Negative)
[2022-05-30 23:11] LABS: Bacteria Urine None Seen (None Seen); Hyaline Casts Urine 0-2 /LPF (0-2); RBC Urine 0-2 /HPF (0-2); UACC Culture Trigger YES
[2022-05-30 23:23] VITALS: BP 146/72; PULSE 99; RESP 15; TEMP 37.8; O2SAT 100
--- NOTE | 2022-05-31 00:03 | ED.GENADULT ---
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 Patient states she has been feeling sick over the past 2 days. She states she had a subjective fever at home. She has been taking Tylenol with some relief of her fever. She states that her whole body hurts. She has had persistent nausea with no vomiting. She denied rhinorrhea, sore throat, cough. She does feel short of breath but she denies chest pain. Patient states that her symptoms got worse today therefore she came to the emergency department for evaluation. There are no other family members ill at home. Related Data Home Medications Medication Instructions Recorded Confirmed artifi.tears(hypromellose)(PF) 0.3 1 drp ophthalmic-Right Q4-6H PRN 12/10/19 05/08/22 % eye drops Dry Eyes ascorbate calcium (vitamin C) 500 500 mg PO DAILY 12/10/19 05/08/22 mg tablet diclofenac sodium 75 mg 75 mg PO BID 12/10/19 05/08/22 tablet,delayed release docusate sodium 100 mg capsule 100 mg PO DAILY 12/10/19 05/08/22 nortriptyline 10 mg capsule 10 mg PO BEDTIME 12/10/19 05/08/22 trazodone 100 mg tablet 100 mg PO BEDTIME PRN Sleep 12/10/19 05/08/22 buspirone 10 mg tablet 1 tab PO TID 12/31/19 05/08/22 citalopram 20 mg tablet 1 tab PO DAILY 12/31/19 05/08/22 hydroxyzine HCl 25 mg tablet 1 - 2 tab PO QID 12/31/19 05/08/22 thiamine HCl (vitamin B1) 100 mg 1 tab PO DAILY 12/31/19 05/08/22 tablet vitamin A 3,000 mcg (10,000 unit) 1 cap PO DAILY 12/31/19 05/08/22 capsule Previous Rx's Medication Instructions Recorded ondansetron 4 mg disintegrating 4 mg PO Q6-8H PRN nausea and 01/03/20 tablet vomiting #10 tabs cane #1 ea 07/31/20 blood-glucose meter (FreeStyle #1 ea 09/05/20 Lite Meter kit) syringe with needle, safety 3 mL #1 ea 01/25/21 25 gauge x 5/8 (BD Safety-Jone Detachable Needle) albuterol sulfate 90 mcg/actuation 1 inh inhalation QID PRN shortness 03/04/21 aerosol inhaler of breath or wheezing #8.5 grams nebulizers (AeroEclipse II #1 ea 03/04/21 Nebulizer) cetirizine 10 mg capsule (Zyrtec) 10 mg PO DAILY 90 days #90 caps 05/23/21 insulin regular hum U-500 conc 500 200 unit (0.4 mL) subcut DAILY #20 06/25/21 unit/mL subcutaneous soln (Humulin mL R U-500 (Concentrated) Insulin) dulaglutide 1.5 mg/0.5 mL 1.5 mg (0.5 mL) subcut QWEEK 30 07/31/21 subcutaneous pen injector days #2.5 mL (Trulicity) insulin syringe-needle U-100 1 mL #1 ea 09/18/21 31 gauge x 5/16 (Advocate Syringes) terbinafine HCl 250 mg tablet 250 mg PO DAILY 90 days #90 tabs 09/24/21 canagliflozin 300 mg tablet 300 mg PO DAILY 30 days #30 tabs 09/27/21 (Invokana) montelukast 10 mg tablet 10 mg PO DAILY 90 days #90 tabs 11/28/21 Shower Chair #1 ea 12/28/21 cyanocobalamin (vitamin B-12) 1,000 mcg PO DAILY 30 days #30 caps 12/28/21 1,000 mcg capsule methylcellulose (laxative) 2 g PO DAILY PRN constipation #479 12/31/21 (Citrucel Sugar Free oral powder) grams blood sugar diagnostic (FreeStyle #100 ea 02/07/22 Lite Strips) fluticasone propionate 50 1 spray intranasal DAILY 30 days 02/25/22 mcg/actuation nasal #16 grams spray,suspension (Flonase Allergy Relief) albuterol sulfate 2.5 mg/3 mL 2.5 mg (3 mL) inhalation QID PRN 03/07/22 (0.083 %) solution for nebulization shortness of breath or wheezing 25 days #180 mL fluconazole 150 mg tablet 150 mg PO Q3D 2 doses #2 tabs 03/27/22 benzonatate 100 mg capsule 100 mg PO BID PRN cough 5 days #10 04/14/22 caps furosemide 20 mg tablet 20 mg PO BID 90 days #180 tabs 04/14/22 cholecalciferol (vitamin D3) 50 50 mcg PO DAILY 30 days #30 caps 04/17/22 mcg (2,000 unit) capsule hydrocortisone 1 %-pramoxine 1 % 1 appl MT BEDTIME PRN hemorrhoids 04/19/22 rectal foam (Proctofoam HC) #10 grams hydrocortisone 2.5 % topical cream 1 appl MT BID PRN hemorrhoids #30 04/22/22 with perineal applicator grams (Proctozone-HC) pantoprazole 40 mg tablet,delayed 40 mg PO DAILY 30 days #30 tabs 04/22/22 release simethicone 125 mg chewable tablet 125 mg PO TID-QID PRN abdominal 04/22/22 (Gas Relief (simethicone)) distention #90 tabs sucralfate 1 gram tablet 1 g PO BID 4 weeks #56 tabs 04/22/22 gabapentin 100 mg capsule 100 mg PO TID 30 days #90 caps 04/23/22 lisinopril 10 mg tablet 10 mg PO DAILY 90 days #90 tabs 05/08/22 rosuvastatin 10 mg tablet 10 mg PO DAILY 90 days #90 tabs 05/08/22 tizanidine 4 mg tablet 4 mg PO Q8H PRN muscle spasticity 05/08/22 30 days #90 tabs oxycodone-acetaminophen 5 mg-325 1 tab PO Q8H PRN pain 30 days #90 05/30/22 mg tablet tabs acetaminophen 500 mg tablet 1,000 mg PO Q6H PRN fever or pain 05/31/22 (Tylenol Extra Strength) #20 tabs ibuprofen 400 mg tablet 400 mg PO TID PRN fever or pain 05/31/22 #30 tabs ondansetron 4 mg disintegrating 4 mg PO Q6-8H PRN nausea and 05/31/22 tablet vomiting #14 tabs Allergies Allergy/AdvReac Type Severity Reaction Status Date / Time adhesive tape [ADHESIVE TAPE] Allergy Intermediate RASH Verified 05/08/22 11:32 pioglitazone [From ACTOS] Allergy Intermediate facial Verified 05/08/22 11:32 edema,rash Review of Systems Review of Systems: Yes all other systems are reviewed and are negative [facility] Past Medical History [facility] Narrative: Social history: She lives with her was here in the emergency department with her. She denies tobacco, alcohol and drug use. Medical History Acid reflux Anxiety and depression Asthma Autoimmune thyroiditis B12 deficiency Back pain Carpal tunnel syndrome Cellulitis of toe of right foot Chronic fatigue Daytime hypersomnia Diabetes mellitus Diabetic nephropathy associated with type 2 diabetes mellitus Diabetic polyneuropathy associated with type 2 diabetes mellitus Diabetic retinopathy associated with type 2 diabetes mellitus Fibromyalgia GERD (gastroesophageal reflux disease) Goiter Tracee's disease History of colonic polyps History of Graves' disease History of ulcer disease Hospital discharge follow-up Hyperlipidemia Hyperlipidemia LDL goal <100 Hypertension Iron (Fe) deficiency anemia Left ankle pain Left leg 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 Lumbar degenerative disc disease Morbid obesity Obesity Onychomycosis Physical exam Polyarthralgia Sessile colonic polyp 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, thoracic, without myelopathy T2DM (type 2 diabetes mellitus) Vitamin D deficiency Surgical History H/O endoscopy H/O gastric bypass History of appendectomy History of carpal tunnel surgery of left wrist History of carpal tunnel surgery of right wrist History of cataract extraction History of lumpectomy of left breast Hx laparoscopic cholecystectomy Hx of section Hx of colonoscopy Hx of esophagogastroduodenoscopy Family History Family History Father Diabetes Hypertension Mother Diabetes Hypertension Maternal Grandmother Colon cancer Paternal Aunt Cancer of ear Social History Social History Household Members: Family Housing: House Alcohol intake: never Patient Tobacco Use Status: Former Tobacco user Quit Date: 2013 Tobacco use type: Cigarette Cigarette Packs Per Day: 1 Cigarettes Per Day: 20.0 Years Smoked: 20 Smoked in Last 30 Days: No e-Cigarette/Vaping Use: Never Used Second Hand Smoke Exposure: No Use of substances other than those prescribed or required for medical reasons: No Advance Directives: No Advance Directives Information Provided: Yes Patient : No service: No Current occupational status: disabled Cognitive needs: No Hearing needs: No Vision needs: Yes Physical Exam ED Vital Signs: Vital Signs - 24 hr 05/30/22 21:36 05/30/22 23:23 05/31/22 01:26 Temperature 99.1 F 100.1 F 99.6 F Pulse Rate 101 H 99 88 Respiratory Rate 20 15 18 Blood Pressure 158/76 H 146/72 H 117/67 Pulse Oximetry 100 100 Oxygen Delivery Method Room Air Room Air 05/31/22 02:03 05/31/22 03:38 Temperature 99.3 F Pulse Rate 83 Respiratory Rate 18 Blood Pressure 117/57 L Pulse Oximetry 97 94 Oxygen Delivery Method Room Air Room Air BMI result Body Mass Index 31.6 Const Other: Awake, alert, female patient, very pleasant cooperative, she is in no distress, answers all questions appropriately. HENDC Head: Yes normal to inspection, Yes normocephalic and Yes atraumatic Ears: external ears normal General nose exam: Normal external nose present Face and sinus: Yes normal facial exam Mouth: Normal oral and palatal mucosa present Throat: Yes posterior oropharynx normal Eyes General: appearance normal, both eyes and all related structures Pupils: Equal, round and reactive pupils present Neck Neck: Yes normal visual inspection, Yes no lymphadenopathy, Yes trachea midline and Yes supple Chest Chest palpation & inspection: normal inspection of the chest and normal palpation of entire chest wall Resp Effort & Inspection: normal respiratory effort and able to speak in complete sentences Auscultation: clear to auscultation bilaterally Cardio Rate: regular rate Rhythm: regular rhythm Heart sounds: S1 normal heart sound present, S2 normal heart sound present and no murmurs GI Inspection: Yes normal to inspection Palpation (GI): Soft to palpation, nontender and no guarding Auscultation: normal bowel sounds General: Yes no CVA tenderness Back/Spine/Pelvis Back: no CVA tenderness Skin General skin exam: no rashes or lesions noted Neuro Cranial nerves: Yes CN's II-XII intact bilaterally and Yes Equal, round and reactive pupils present Cognition (Neuro): normal cognition Motor exam (neuro): 5/5 motor strength present throughout Extrem General: Yes normal to inspection Psych Appearance: grossly normal Speech and movement: Normal speech and movement present Affect: normal affect Attitude: cooperative Medications Administered Discontinued Medications Generic Name Dose Route Start Last Admin Trade Name Terri PRN Reason Stop Dose Admin Diphenhydramine HCl 50 mg 05/31/22 00:23 05/31/22 00:56 Diphenhydramine Hcl 50 Mg/Ml Vial IVPUSH 05/31/22 00:24 50 mg ONCE STA Administration Sodium Chloride 1,000 mls @ 999 mls/hr 05/31/22 00:23 05/31/22 00:57 Ns IV 05/31/22 01:23 999 mls/hr .Q1H1M STA Administration Ketorolac Tromethamine 15 mg 05/31/22 00:23 05/31/22 00:56 Ketorolac Tromethamine 15 Mg/Ml Vial IVPUSH 05/31/22 00:24 15 mg ONCE STA Administration Metoclopramide HCl 10 mg 05/31/22 00:23 05/31/22 01:03 Metoclopramide Hcl 10 Mg/2 Ml Vial IVPUSH 05/31/22 00:24 10 mg ONCE STA Administration Medical Decision Making Medical Decision Making MDM Narrative: 47-year-old female who presents emergency department for evaluation of 2 days of viral-like illness with symptoms that include subjective fever, chills, myalgias, fatigue, shortness of breath, nausea. Initial vital signs revealed an elevated blood pressure of 158/76 with an elevated pulse of 101. Patient was afebrile with an O2 saturation of 100% on room air. Patient's physical examination was unremarkable. I ordered a he CBC, BMP, lipase, liver panel, urinalysis, influenza, COVID-19. Patient was ordered to get IV normal saline x1 L, Toradol 15 mg IV, regular and 10 mg IV and Benadryl 50 mg IV. 0028: My interpretation of the patient's laboratory data is as follows: Elevated WBC 08343, anemia with an H&H of 11.5 and 35. Elevated alk-phos 118. Elevated glucose 223. COVID-19 and influenza were negative. Urinalysis was positive for protein and glucose. Microscopic was unremarkable. COVID-19 and influenza were negative. Patient's presentation is consistent with acute viral syndrome. Differential Diagnosis Differential diagnosis includes was not limited to acute viral illness, COVID-19, influenza, dehydration, metabolic/electrolyte abnormality Lab Data [facility] Lab Attestation statement: I reviewed the patient's lab results. Please see MDM 05/30/22 21:54 05/30/22 21:54 Labs: Lab Results 05/30/22 05/30/22 05/30/22 Range/Units 21:52 21:53 21:53 WBC (4.8-10.8) X10*3/uL RBC (4.20-5.50) X10*6/uL Hgb (12.0-16.0) g/dl Hct (37.0-47.0) % MCV (80.0-98.0) fL MCH (27.0-33.0) pg MCHC (31.0-35.0) g/dl RDW (11.0-16.0) % Plt Count (160-400) X10*3/uL MPV (9.4-12.3) fL Immature Gran % (Auto) (0.0-0.4) % Neut % (Auto) (45-73) % Lymph % (Auto) (20-40) % Riley % (Auto) (2-11) % Eos % (Auto) (0-4) % Baso % (Auto) (0-2) % Lymph # (Auto) (1.2-4.9) X10*3/uL Riley # (Auto) (0.1-1.2) X10*3/uL Eos # (Auto) (0.0-0.4) X10*3/uL Baso # (Auto) (0.0-0.2) X10*3/uL Abs Immat Gran (auto) (0.00-0.03) X10*3/uL Absolute Neuts (auto) (2.0-8.3) x10*3/uL Absolute Nucleated RBC (0.0-0.012) X10*3/uL Nucleated RBC % (auto) (0.0-0.2) /100WBC Sodium (135-145) mmol/L Potassium (3.3-5.1) mmol/L Chloride (96-108) mmol/L Carbon Dioxide (22-29) mmol/L Anion Gap (12-20) BUN (9-16) mg/dL Creatinine (0.5-1.4) mg/dL Estim Creat Clear Calc Estimated GFR Random Glucose (60-115) mg/dL Calcium (8.4-10.2) mg/dL Total Bilirubin (0.0-1.0) mg/dL Direct Bilirubin (0.0-0.5) mg/dL AST (5-31) U/L ALT (0-31) U/L Alkaline Phosphatase (39-117) U/L Total Protein (6.5-8.0) g/dL Albumin (3.5-5.0) g/dL Lipase (8-78) U/L Urine Color Yellow Urine Appearance Clear Urine pH 6.0 (5.0-9.0) Ur Specific [place] >= 1.030 H (1.005-1.025) Urine Protein 30 (1+) H (Neg-Trace) mg/dL Urine Glucose (UA) >=1000 H (Negative) mg/dL Urine Ketones Negative (Negative) mg/dL Urine Blood Negative (Negative) Urine Nitrite Negative (Negative) Ur Leukocyte Esterase Negative (Negative) Urine RBC 0-2 (0-2) /HPF Urine WBC 6-10 H (0-5) /HPF Ur Squamous Epith Cells 3-5 (0-2) /HPF Urine Bacteria None Seen (None Seen) Hyaline Casts 0-2 (0-2) /LPF COVID-19 (PAULA) Negative (Negative) COVID-19 Clin Com See Note Influenza Type A (MATT) Negative (Negative) Influenza Type B (MATT) Negative (Negative) Influenza A & B Note See Note 05/30/22 05/30/22 Range/Units 21:54 21:54 WBC 12.1 H (4.8-10.8) X10*3/uL RBC 4.74 (4.20-5.50) X10*6/uL Hgb 11.5 L (12.0-16.0) g/dl Hct 35.6 L (37.0-47.0) % MCV 75.1 L (80.0-98.0) fL MCH 24.3 L (27.0-33.0) pg MCHC 32.3 (31.0-35.0) g/dl RDW 14.4 (11.0-16.0) % Plt Count 311 (160-400) X10*3/uL MPV 9.5 (9.4-12.3) fL Immature Gran % (Auto) 0.3 (0.0-0.4) % Neut % (Auto) 76.5 H (45-73) % Lymph % (Auto) 15.0 L (20-40) % Riley % (Auto) 7.7 (2-11) % Eos % (Auto) 0.3 (0-4) % Baso % (Auto) 0.2 (0-2) % Lymph # (Auto) 1.8 (1.2-4.9) X10*3/uL Riley # (Auto) 0.9 (0.1-1.2) X10*3/uL Eos # (Auto) 0.0 (0.0-0.4) X10*3/uL Baso # (Auto) 0.0 (0.0-0.2) X10*3/uL Abs Immat Gran (auto) 0.04 H (0.00-0.03) X10*3/uL Absolute Neuts (auto) 9.3 H (2.0-8.3) x10*3/uL Absolute Nucleated RBC 0.000 (0.0-0.012) X10*3/uL Nucleated RBC % (auto) 0.0 (0.0-0.2) /100WBC Sodium 135 (135-145) mmol/L Potassium 4.2 (3.3-5.1) mmol/L Chloride 100 (96-108) mmol/L Carbon Dioxide 26 (22-29) mmol/L Anion Gap 13 (12-20) BUN 12 (9-16) mg/dL Creatinine 0.75 (0.5-1.4) mg/dL Estim Creat Clear Calc 116.2 Estimated GFR > 60 Random Glucose 223 H (60-115) mg/dL Calcium 9.2 D (8.4-10.2) mg/dL Total Bilirubin 0.4 (0.0-1.0) mg/dL Direct Bilirubin < 0.2 (0.0-0.5) mg/dL AST 13 (5-31) U/L ALT 18 (0-31) U/L Alkaline Phosphatase 118 H (39-117) U/L Total Protein 7.1 (6.5-8.0) g/dL Albumin 4.1 (3.5-5.0) g/dL Lipase 34 (8-78) U/L Urine Color Urine Appearance Urine pH (5.0-9.0) Ur Specific [place] (1.005-1.025) Urine Protein (Neg-Trace) mg/dL Urine Glucose (UA) (Negative) mg/dL Urine Ketones (Negative) mg/dL Urine Blood (Negative) Urine Nitrite (Negative) Ur Leukocyte Esterase (Negative) Urine RBC (0-2) /HPF Urine WBC (0-5) /HPF Ur Squamous Epith Cells (0-2) /HPF Urine Bacteria (None Seen) Hyaline Casts (0-2) /LPF COVID-19 (PAULA) (Negative) COVID-19 Clin Com Influenza Type A (MATT) (Negative) Influenza Type B (MATT) (Negative) Influenza A & B Note Independent Historian Clinical information obtained from an independent historian. History obtained from or confirmed by: Spouse Discharge Plan Discharge Clinical Impression: Viral syndrome, Acute dehydration, Nausea Patient Disposition: Home, Self-Care Instructions: Viral Syndrome (ED) Additional Instructions: Your blood work revealed a [place] [address] and an elevated glucose of 223 Your COVID-19 and influenza tests were negative. Your symptoms are consistent with a viral infection. Take Zofran ODT 4 mg pills, 1 pill dissolved in your mouth every 8 hours as needed for nausea and vomiting. Take ibuprofen 400 mg pills, 2 pills every 6 hours as needed for pain. Take Tylenol (acetaminophen) 500 mg pills, 2 pills every 6 hours as needed for pain. Follow-up with your doctor in 2 days. Please return to the emergency department if your symptoms get worse or if you develop any symptoms that are concerning to you. Prescriptions: New acetaminophen [Tylenol Extra Strength] 500 mg tablet 1,000 mg PO Q6H PRN (Reason: fever or pain) Qty: 20 0RF ibuprofen 400 mg tablet 400 mg PO TID PRN (Reason: fever or pain) Qty: 30 0RF ondansetron 4 mg tablet,disintegrating 4 mg PO Q6-8H PRN (Reason: nausea and vomiting) Qty: 14 0RF No Action (DME) cane Device See Rx Instructions .ROUTE .MEDSUPPLY Qty: 1 0RF Rx Instructions: As directed (DME) blood-glucose meter [FreeStyle Lite Meter] Kit See Rx Instructions .ROUTE .MEDSUPPLY Qty: 1 0RF Rx Instructions: TEST 4 TIMES DAILY (DME) BD Safety-Jone Detachable Needl 3 mL 25 gauge x 5/8 syringe See Rx Instructions .ROUTE .MEDSUPPLY Qty: 1 6RF Rx Instructions: Use 1 syringe once a month Zyrtec 10 mg capsule 10 mg PO DAILY 90 Days Qty: 90 3RF Humulin R U-500 (Conc) Insulin 500 unit/mL solution 200 unit subcut DAILY Qty: 20 11RF Trulicity 1.5 mg/0.5 mL pen injector 1.5 mg subcut QWEEK 30 Days Qty: 2.5 6RF Rx Instructions: dose increased terbinafine HCl 250 mg tablet 250 mg PO DAILY 90 Days Qty: 90 0RF Invokana 300 mg tablet 300 mg PO DAILY 30 Days Qty: 30 11RF montelukast 10 mg tablet 10 mg PO DAILY 90 Days Qty: 90 3RF cyanocobalamin (vitamin B-12) 1,000 mcg capsule 1,000 mcg PO DAILY 30 Days Qty: 30 11RF (DME) Shower Chair Misc See Rx Instructions .Route Qty: 1 0RF Rx Instructions: As directed (DME) FreeStyle Lite Strips Strip See Rx Instructions .ROUTE .MEDSUPPLY Qty: 100 8RF Rx Instructions: TEST 4 TIMES DAILY fluticasone propionate [Flonase Allergy Relief] 50 mcg/actuation spray,suspension 1 spray intranasal DAILY 30 Days Qty: 16 1RF Rx Instructions: administer into each nostril albuterol sulfate 2.5 mg /3 mL (0.083 %) solution for nebulization 2.5 mg inhalation QID PRN (Reason: shortness of breath or wheezing) 25 Days Qty: 180 0RF fluconazole 150 mg tablet 150 mg PO Q3D Qty: 2 0RF furosemide 20 mg tablet 20 mg PO BID 90 Days Qty: 180 1RF benzonatate 100 mg capsule 100 mg PO BID PRN (Reason: cough) 5 Days Qty: 10 0RF cholecalciferol (vitamin D3) 50 mcg (2,000 unit) capsule 50 mcg PO DAILY 30 Days Qty: 30 11RF Proctofoam HC 1-1 % foam 1 appl MT BEDTIME PRN (Reason: hemorrhoids) Qty: 10 3RF sucralfate 1 gram tablet 1 g PO BID 28 Days Qty: 56 1RF gabapentin 100 mg capsule 100 mg PO TID 30 Days Qty: 90 1RF tizanidine 4 mg tablet 4 mg PO Q8H PRN (Reason: muscle spasticity) 30 Days Qty: 90 8RF rosuvastatin 10 mg tablet 10 mg PO DAILY 90 Days Qty: 90 1RF lisinopril 10 mg tablet 10 mg PO DAILY 90 Days Qty: 90 1RF oxycodone-acetaminophen 5-325 mg tablet 1 tab PO Q8H PRN (Reason: pain) 30 Days Qty: 90 0RF citalopram 20 mg tablet 1 tab PO DAILY buspirone 10 mg tablet 1 tab PO TID thiamine HCl (vitamin B1) 100 mg tablet 1 tab PO DAILY vitamin A 10,000 unit capsule 1 cap PO DAILY hydroxyzine HCl 25 mg tablet 1 - 2 tab PO QID ondansetron 4 mg tablet,disintegrating 4 mg PO Q6-8H PRN (Reason: nausea and vomiting) Qty: 10 0RF albuterol sulfate 90 mcg/actuation HFA aerosol inhaler 1 inh inhalation QID PRN (Reason: shortness of breath or wheezing) Qty: 8.5 0RF (DME) AeroEclipse II Nebulizer Misc See Rx Instructions .ROUTE .MEDSUPPLY Qty: 1 0RF Rx Instructions: As directed (DME) insulin syringe-needle U-100 [Advocate Syringes] 1 mL 31 gauge x 5/16 syringe See Rx Instructions .Route Qty: 1 2RF Rx Instructions: Use 1 needle once a month diclofenac sodium 75 mg tablet,delayed release (DR/EC) 75 mg PO BID artifi.tears(hypromellose)(PF) 0.3 % drops 1 drp ophthalmic-Right Q4-6H PRN (Reason: Dry Eyes) ascorbate calcium (vitamin C) 500 mg tablet 500 mg PO DAILY trazodone 100 mg tablet 100 mg PO BEDTIME PRN (Reason: Sleep) nortriptyline 10 mg capsule 10 mg PO BEDTIME docusate sodium 100 mg capsule 100 mg PO DAILY Citrucel Sugar Free Powder 2 g PO DAILY PRN (Reason: constipation) Qty: 479 2RF hydrocortisone [Proctozone-HC] 2.5 % cream with perineal applicator 1 appl MT BID PRN (Reason: hemorrhoids) Qty: 30 3RF Rx Instructions: apply MT BID prn pantoprazole 40 mg tablet,delayed release (DR/EC) 40 mg PO DAILY 30 Days Qty: 30 11RF simethicone [Gas Relief (simethicone)] 125 mg tablet,chewable 125 mg PO TID-QID PRN (Reason: abdominal distention) Qty: 90 2RF
[2022-05-31] MEDS: Ketorolac Tromethamine 15 MG/ML VIAL IVPUSH (00:56)
[2022-05-31] MEDS: diphenhydrAMINE HCL 50 MG/ML VIAL IVPUSH (00:56)
[2022-05-31] MEDS: 0.9 % Sodium Chloride 1,000 ML 999 ML IV (00:57)
[2022-05-31] MEDS: Metoclopramide HCl 10 MG/2 ML VIAL IVPUSH (01:03)
[2022-05-31 01:26] VITALS: BP 117/67; PULSE 88; RESP 18; TEMP 37.6
[2022-05-31 02:03] VITALS: O2SAT 97
[2022-05-31 03:38] VITALS: BP 117/57; PULSE 83; RESP 18; TEMP 37.4; O2SAT 94
[2022-05-31 05:53] VITALS: BP 120/66; PULSE 81; RESP 18; TEMP 37; O2SAT 99
--- NOTE | 2022-05-31 06:00 | MHC.EDTECH ---
Pt changed out of hospital gown and back into street clothing due to walking to the bathroom often and not wanting to expose herself. PT resting quietly with call curry in reach.
== END 2022-05-31 06:33 | disposition home or self-care (01) ==
PROVIDERS: Emergency Provider Emergency Medicine Emergency Medical Services; PCP Internal Medicine
DX: B34.9 Viral infection, unspecified (principal); E86.0 Dehydration; R51.9 Headache, unspecified; M54.50 Low back pain, unspecified; R50.9 Fever, unspecified; Z20.822 Contact with and (suspected) exposure to COVID-19; Z20.828 Contact with and (suspected) exposure to other viral communicable diseases; Z79.899 Other long term (current) drug therapy; Z87.891 Personal history of nicotine dependence
CPT/HCPCS: 36415; 80048; 80076; 81001; 81003; 83690; 85025; 87086; 87147; 87502; 87635; 96361; 96374; 96375; 99284; 99285; J1200; J1885; J2765

== ENCOUNTER 2022-06-21 10:47 | Outpatient (REF) | payer OTHER, SELFPAY ==
[2022-06-21 11:01] LABS: MANUAL DIFF FLAG NO
[2022-06-21 12:11] LABS: Basophils Percent Auto 0.3 % (0-2); Eosinophils Absolute Auto 0.1 X10*3/uL (0.0-0.4); Eosinophils Percent Auto 1.4 % (0-4); Hematocrit 32.7 % (37.0-47.0); Hemoglobin 10.3 g/dl (12.0-16.0); Imm Gran Abs Auto 0.03 X10*3/uL (0.00-0.03); Imm Gran Pct Auto 0.4 % (0.0-0.4); Lymphocytes Absolute Auto 1.8 X10*3/uL (1.2-4.9); Lymphocytes Percent Auto 23.4 % (20-40); Mean Corpuscular HGB Conc 31.5 g/dl (31.0-35.0); Mean Corpuscular Hemoglobin 23.8 pg (27.0-33.0); Mean Corpuscular Volume 75.5 fL (80.0-98.0); Mean Platelet Volume 10.4 fL (9.4-12.3); Monocytes Absolute Auto 0.6 X10*3/uL (0.1-1.2); Monocytes Percent Auto 7.7 % (2-11); Neutrophils Absolute Auto 5.2 x10*3/uL (2.0-8.3); Neutrophils Percent Auto 66.8 % (45-73); Platelet Count 306 X10*3/uL (160-400); Red Blood Count 4.33 X10*6/uL (4.20-5.50); Red Cell Distribution Width 14.4 % (11.0-16.0); White Blood Count 7.8 X10*3/uL (4.8-10.8)
[2022-06-21 13:02] LABS: Creatinine Urine 22.11 mg/dL; Microalbumin Urine < 5.0 mg/L
[2022-06-21 13:07] LABS: TSH reflex Free T4 1.73 uIU/mL (0.32-4.0)
[2022-06-21 13:16] LABS: Estimated Average Glucose 266 mg/dL; Hemoglobin A1c % 10.9 %
[2022-06-21 13:22] LABS: Alanine Aminotransferase 24 U/L (0-31); Albumin Level 3.9 g/dL (3.5-5.0); Alkaline Phosphatase 115 U/L (39-117); Anion Gap 13 (12-20); Aspartate Amino Transferase 16 U/L (5-31); Bilirubin Total 0.4 mg/dL (0.0-1.0); Blood Urea Nitrogen 14 mg/dL (9-16); Carbon Dioxide 24 mmol/L (22-29); Chloride 100 mmol/L (96-108); Cholesterol 195 mg/dL; Estimated Glomerular Filt Rate > 60; Glucose Random 376 mg/dL (60-115); HDL Cholesterol 62 mg/dL; Iron 53 mcg/dL (30-160); LDL Cholesterol Calculated 85 mg/dl; Percent Iron Saturation 13 % (15-50); Potassium 4.3 mmol/L (3.3-5.1); Sodium 133 mmol/L (135-145); Total Iron Binding Capacity 408 mcg/dL (228-428); Total Protein 6.7 g/dL (6.5-8.0); Triglycerides 243 mg/dL; Unsaturated Iron Binding 355 ug/dL
[2022-06-21 13:26] LABS: Folate 13.4 ng/mL (> or = 4.0); Vitamin B12 244 pg/mL (200-900); Vitamin D 25-OH Total 18.4 ng/mL (>30)
== END 2022-06-21 10:48 | disposition home or self-care (01) ==
LOC: HO.LAB 10:47
PROVIDERS: Internal Medicine; PCP Internal Medicine; Visit Provider Nurse Practitioner Family
DX: E11.65 Type 2 diabetes mellitus with hyperglycemia (principal); E55.9 Vitamin D deficiency, unspecified; E78.5 Hyperlipidemia, unspecified; E06.3 Autoimmune thyroiditis; D50.9 Iron deficiency anemia, unspecified; Z79.4 Long term (current) use of insulin
CPT/HCPCS: 36415; 80053; 80061; 82043; 82306; 82607; 82746; 83036; 83540; 84443; 85025

== ENCOUNTER 2022-06-26 15:53 | Emergency (ER) | payer OTHER, SELFPAY ==
--- NOTE | ~2022-06-26 | XR_ITS ---
EXAMINATION: XR CERVICAL SPINE CLINICAL INFORMATION: Neck pain COMPARISON: None available. TECHNIQUE: 3 views of the cervical spine were obtained. EXAMINATION: XR cervical spine 3V 3 views of the cervical spine were obtained. FINDINGS: The cervical spine is visualized to the level of C7 on the lateral view. Vertebral body alignment is maintained. Vertebral body heights are maintained. Lateral masses of C1 are well aligned on C2. Visualized portion of the dens is intact. Intervertebral disc spaces are preserved. No prevertebral soft tissue swelling. XR/XR cervical spine 3V IMPRESSION: Vertebral body heights and intervertebral disc spaces are maintained.
[2022-06-26 16:27] VITALS: RESP 18; TEMP 36.6; O2SAT 98; BMI 30.4
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
[2022-06-26] MEDS: Ketorolac Tromethamine 15 MG/ML VIAL 30 MG IM (18:15)
[2022-06-26] MEDS: Lidocaine 4 % Patch ADH..PATCH 1 PATCH TRANSDERMA (18:16)
--- NOTE | 2022-06-26 18:19 | PC.NURSE ---
Pt medicated per MAR.
== END 2022-06-26 19:11 | disposition home or self-care (01) ==
PROVIDERS: Emergency Provider Emergency Medicine Emergency Medical Services; PCP Internal Medicine
DX: S16.1XXA Strain of muscle, fascia and tendon at neck level, initial encounter (principal); V43.52XA Car driver injured in collision with other type car in traffic accident, initial encounter; Y93.89 Activity, other specified; Y92.414 Local residential or business street as the place of occurrence of the external cause; Y99.9 Unspecified external cause status
CPT/HCPCS: 72040; 96372; 99283; 99284; J1885

== ENCOUNTER → 2022-07-04 07:56 | Outpatient (BNVA) | payer OTHER, SELFPAY | PROVIDERS: PCP Internal Medicine; Referring Provider Internal Medicine; Visit Provider Physician Assistant | DX: R10.11 Right upper quadrant pain (principal); K21.9 Gastro-esophageal reflux disease without esophagitis; R14.0 Abdominal distension (gaseous); E66.01 Morbid (severe) obesity due to excess calories; Z68.35 Body mass index [BMI] 35.0-35.9, adult; Z90.49 Acquired absence of other specified parts of digestive tract; Z79.4 Long term (current) use of insulin | CPT/HCPCS: 99212 ==

== ENCOUNTER 2022-07-11 07:14 | Outpatient (REF) | payer OTHER, SELFPAY ==
--- NOTE | ~2022-07-11 | XR_ITS ---
EXAMINATION: XR SHOULDER, LEFT CLINICAL INFORMATION: Pain COMPARISON: Previous x-ray October 2016 TECHNIQUE: AP external rotation, Grashey, scapular Y, and axillary views of the left shoulder. FINDINGS: Bone alignment is normal. No fracture or dislocation. Joint spaces are normal. Small calcification or ossification adjacent to the greater tuberosity. XR/XR shoulder LT min 2V IMPRESSION: Small calcification or ossification adjacent to the greater tuberosity suggestive of calcific tendinitis or bursitis.
== END 2022-07-11 07:15 | disposition home or self-care (01) ==
LOC: HO.XRAY 07:14
PROVIDERS: PCP Internal Medicine; Visit Provider Internal Medicine
DX: M25.512 Pain in left shoulder (principal)
CPT/HCPCS: 73030

== ENCOUNTER 2022-08-08 08:46 | Outpatient (REF) | payer OTHER, SELFPAY ==
--- NOTE | ~2022-08-08 | US_ITS ---
EXAMINATION: US COMPLETE ABDOMEN WITH LIVER ELASTOGRAPHY CLINICAL INFORMATION: Right upper quadrant pain area post cholecystectomy. COMPARISON: Previous abdominal ultrasound from [address] of the abdomen and pelvis from 2019 TECHNIQUE: Real-time imaging of the abdominal viscera. Noninvasive ultrasound liver fibrosis assessment is performed using Josue ElastPQ point quantification shear wave elastography (2D-SWE) with a C5-2 MHz transducer. Multiple elastography samples are obtained. Limited exam due to body habitus. FINDINGS: PANCREAS: The visualized pancreatic head and body are normal in appearance. The remainder of the pancreas is obscured from visualization by the overlying bowel gas. ABDOMINAL AORTA: The proximal, middle, and distal aortic segments are normal in caliber. INFERIOR VENA CAVA: Visualized portions are normal. LIVER: Normal. The liver demonstrates normal size, contour and echogenicity. No focal lesion or intrahepatic biliary duct dilatation. Cystic structure inferior to the left lobe of the liver. This measures 9 x 5 x 6 cm. It is uncertain whether this is related to bowel. Similar to previous ultrasound from 2019. The right lobe measures 12 cm in length. The left lobe measures 16 cm in length. Portal flow is normal/hepatopedal Shear wave liver elastography median stiffness is 1.6 m/s (reference: normal median stiffness is 1.3 m/s or less). IQR/median stiffness to assess sampling precision is 0.05 (reference: good quality data set is IQR/median stiffness of 0.15 or less). GALLBLADDER: Surgically removed COMMON BILE DUCT: Normal in caliber measuring 0.3 cm in diameter. RIGHT KIDNEY: Mild fullness of the renal pelvis. No hydronephrosis. No renal calculi or focal parenchymal lesions. The kidney measures 13 cm in maximum dimension. LEFT KIDNEY: Normal. No hydronephrosis. No renal calculi or focal parenchymal lesions. The kidney measures 12 cm in maximum dimension. SPLEEN: Normal. The spleen measures 12.5 cm in maximum dimension. FREE FLUID: None. US/US abdomen comp w elastography IMPRESSION: 1. Impression Limited exam due to body habitus. Similar-appearing cystic 9 x 5 x 6 cm structure inferior to the left lobe of the liver. This may be related to bowel. This could be further evaluated with CT if clinically indicated. No biliary duct dilatation. Limited visualization of the pancreas. 2. Liver elastography: Nondiagnostic. Limited due to sampling error. REFERENCE: Society of Radiologists in Ultrasound Liver Stiffness Thresholds (2020): LIVER STIFFNESS THRESHOLDS: *Liver Stiffness equal or less than 1.3 m/s: High probability of being normal. *Liver Stiffness less than 1.7 m/s: In the absence of other known clinical signs, rules out compensated advanced chronic liver disease. *Liver Stiffness 1.7-2.1 m/s: Suggestive of compensated advanced chronic liver disease but need further test for confirmation. *Liver Stiffness over 2.1 m/s: Rules in compensated advanced chronic liver disease. *Liver Stiffness over 2.4 m/s: Suggestive of clinically significant portal hypertension. QUALITY OF DATA SET: *IQR/Median value equal or less than 0.15 implies a quality data set. *IQR/Median value over 0.15 implies a poor quality data set. SIGNIFICANT CHANGE FROM PRIOR EXAM: Significant change if liver stiffness measurement is 10% or greater from prior exam. OTHER CONSIDERATIONS: The stage of liver fibrosis may be overestimated in the setting of acute hepatitis, liver inflammation, elevated liver function tests, hepatic vascular congestion, obstructive cholestasis, non-fasting state, and infiltrative diseases such as amyloidosis and lymphoma. In some patients with NAFLD, the liver stiffness thresholds for compensated advanced chronic liver disease may be lower. In causes other than viral hepatitis and NAFLD, liver stiffness thresholds are not well established.
== END 2022-08-08 08:47 | disposition home or self-care (01) ==
LOC: HO.US 08:46
PROVIDERS: PCP Internal Medicine; Visit Provider Physician Assistant
DX: R10.11 Right upper quadrant pain (principal)
CPT/HCPCS: 76705; 76981

== ENCOUNTER → 2022-08-28 11:37 | Outpatient (BNVA) | payer MEDICAID, SELFPAY | PROVIDERS: PCP Internal Medicine; Visit Provider Physician Assistant | DX: R93.5 Abnormal findings on diagnostic imaging of other abdominal regions, including retroperitoneum (principal); D50.9 Iron deficiency anemia, unspecified | CPT/HCPCS: 99212 ==

== ENCOUNTER → 2022-08-30 08:28 | Outpatient (BNVA) | payer MEDICAID, SELFPAY | PROVIDERS: PCP Internal Medicine; Visit Provider Registered Nurse Diabetes Educator | DX: E11.65 Type 2 diabetes mellitus with hyperglycemia (principal); Z79.4 Long term (current) use of insulin | CPT/HCPCS: 99211 ==

== ENCOUNTER 2022-09-10 08:07 | Outpatient (AMB) | payer OTHER, SELFPAY ==
--- NOTE | 2022-09-10 08:13 | MHC.PC.OV ---
Vital Signs 09/10/22 08:14 Height 5 ft 9 in Weight 240 lb BMI 35.4 BP 138/76 Blood Pressure Location Lt brachial Position Sitting Intake Visit Reasons: HTN, DM Intake Note: Patient here for a follow up HTN, DM Refrigeration Installer Required: No Accompanied by: Self / Same As Patient Allergies adhesive tape [ADHESIVE TAPE] Allergy (Intermediate, Verified 09/10/22 08:23) RASH pioglitazone [From ACTOS] Allergy (Intermediate, Verified 09/10/22 08:23) facial edema,rash Medication List - Last Reconciled 09/10/22 by Analilia Schumacher MD acetaminophen (Tylenol Extra Strength) 500 mg PO Q6H PRN albuterol sulfate 90 mcg/actuation 1 inh inhalation QID PRN albuterol sulfate 2.5 mg (3 mL) inhalation QID PRN 25 days artifi.tears(hypromellose)(PF) 0.3% 1 drp ophthalmic-Right Q4-6H PRN ascorbate calcium (vitamin C) 500 mg PO DAILY barium sulfate 2%(w/v) (Readi-Cat 2) 450 mL PO DIRECTED 1 day benzonatate 100 mg PO BID PRN 5 days blood sugar diagnostic (FreeStyle Lite Strips) TEST 4 TIMES DAILY blood-glucose meter (FreeStyle Lite Meter kit) TEST 4 TIMES DAILY buspirone 1 tab PO TID canagliflozin (Invokana) 300 mg PO DAILY 30 days cane As directed cetirizine (Zyrtec) 10 mg PO DAILY 90 days cholecalciferol (vitamin D3) 50 mcg PO DAILY 30 days citalopram 1 tab PO DAILY citalopram 10 mg PO DAILY cyanocobalamin (vitamin B-12) 1,000 mcg PO DAILY 30 days cyclobenzaprine 5 mg PO Q8H PRN 5 days diclofenac sodium 75 mg PO BID docusate sodium 100 mg PO DAILY dulaglutide (Trulicity) 3 mg (0.5 mL) subcut QWEEK ferrous sulfate 325 mg PO DAILY fluconazole 150 mg PO Q3D 2 doses fluticasone propionate 50 mcg/actuation (Flonase Allergy Relief) 1 spray intranasal DAILY 30 days furosemide 20 mg PO BID 90 days gabapentin 100 mg PO TID 30 days hydrocortisone 2.5% (Proctozone-HC) 1 appl NV BID PRN hydrocortisone-pramoxine 1-1 % (Proctofoam HC) 1 appl NV BEDTIME hydroxyzine HCl 1 - 2 tabs PO QID ibuprofen 400 mg PO TID PRN insulin regular hum U-500 conc (Humulin R U-500 (Concentrated) Insulin) 210 units (0.42 mL) subcut DAILY 30 days insulin syringe-needle U-100 (Advocate Syringes) Use 1 needle once a month lidocaine 5% (Lidoderm) 1 patch topical DAILY PRN MDD remove after 12 hours lisinopril 10 mg PO DAILY 90 days methylcellulose (laxative) (Citrucel Sugar Free oral powder) 2 grams PO DAILY PRN montelukast 10 mg PO DAILY 90 days nebulizers (AeroEclipse II Nebulizer) As directed nortriptyline 10 mg PO BEDTIME ondansetron 4 mg PO Q6-8H PRN ondansetron 4 mg PO Q6-8H PRN oxycodone-acetaminophen 5-325 mg 1 tab PO Q8H PRN 30 days pantoprazole 40 mg PO DAILY 30 days rosuvastatin 10 mg PO DAILY 90 days Shower Chair As directed simethicone (Gas Relief (simethicone)) 125 mg PO TID-QID PRN syringe with needle, safety (BD Safety-Jone Detachable Needle) Use 1 syringe once a month terbinafine HCl 250 mg PO DAILY 90 days thiamine HCl (vitamin B1) 1 tab PO DAILY tizanidine 4 mg PO Q8H PRN 30 days vitamin A 1 cap PO DAILY Tobacco use date assessed: 05/08/22 Dental Screening Dental Screen Date: 09/10/22 Did you have a dental visit in the last 12 months?: Yes Did you have a dental problem in the last 6 months where you did not have access to dental care?: No Was dental information given to patient?: Patient has dentist HPI HPI Comments History of Present Illness Details This is a 47-year-old female with diabetes mellitus type 2 on long-term current use of insulin, hyperlipidemia GERD that comes today complaining of daytime somnolence by severely dozing off while sitting and reading, watching TV, riding as a passenger in a car for 1 hour without a break, lying down to rest in the afternoon, sitting quietly after lunch and 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 Sleep study will be order. Last A1c was not on goal and this is follow by Endocrinology. LDL will be repeated and the goal should be less than 70. GERD stable with medications. Feels fatigue and tired. [facility] Medical History (Updated 09/10/22 @ 08:59 by Analilia Schumacher MD) Acid reflux Anxiety and depression Asthma Autoimmune thyroiditis B12 deficiency Back pain Carpal tunnel syndrome Cellulitis of toe of right foot Chronic fatigue Daytime hypersomnia Diabetes mellitus Diabetic nephropathy associated with type 2 diabetes mellitus Diabetic polyneuropathy associated with type 2 diabetes mellitus Diabetic retinopathy associated with type 2 diabetes mellitus Fibromyalgia GERD (gastroesophageal reflux disease) Goiter Tracee's disease History of colonic polyps History of Graves' disease History of ulcer disease Hospital discharge follow-up Hyperlipidemia Hyperlipidemia LDL goal <100 Hypertension Iron (Fe) deficiency anemia Left ankle pain Left leg pain 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 Lumbar degenerative disc disease Morbid obesity Obesity Onychomycosis Physical exam Polyarthralgia Sessile colonic polyp 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, thoracic, without myelopathy T2DM (type 2 diabetes mellitus) Vitamin D deficiency Surgical History H/O endoscopy H/O gastric bypass History of appendectomy History of carpal tunnel surgery of left wrist History of carpal tunnel surgery of right wrist History of cataract extraction History of lumpectomy of left breast Hx laparoscopic cholecystectomy Hx of section Hx of colonoscopy Hx of esophagogastroduodenoscopy Family History Father Diabetes Hypertension Mother Diabetes Hypertension Maternal Grandmother Colon cancer Paternal Aunt Cancer of ear Social History Household Members: Family Housing: House Alcohol intake: never Patient Tobacco Use Status: Former Tobacco user Quit Date: 2013 Tobacco use type: Cigarette Cigarette Packs Per Day: 1 Cigarettes Per Day: 20.0 Years Smoked: 20 e-Cigarette/Vaping Use: Never Used Second Hand Smoke Exposure: No service: No Current occupational status: disabled Cognitive needs: No Hearing needs: No Vision needs: Yes Questionnaire Thrive Questionnaire Date Thrive assessed: 05/08/22 MARCO-7 AMB Questionnaire MARCO-7 Date MARCO - 7 assessed: 05/08/22 Source: Developed by Drs. Parmjit Be, Yessi Gold, Ji Mahmood and colleagues, with an educational anni from [employer]. Review of Systems Const All systems reviewed & are unremarkable except as noted in HPI and below Eyes Reports no additional complaints, Denies change in vision and Denies other visual disturbances Card Denies chest pain at rest, Denies chest pain with activity, Denies edema, Denies irregular heart rhythm, Denies claudication, Denies dyspnea, Denies dyspnea on exertion, Denies orthopnea, Denies paroxysmal nocturnal dyspnea and Denies slow heart rate Resp Denies cough, Denies dyspnea and Denies dyspnea on exertion GI Denies abdominal pain, Denies change in bowel habits, Denies excessive flatus, Denies nausea and Denies vomiting Denies urinary incontinence, Denies urinary hesitancy and Denies urinary urgency Musc Denies abnormal gait, Denies atrophy, Denies deformity and Denies limited range of motion Skin/Breast Denies bleeding lesions, Denies changing lesions and Denies rash Neuro Denies abnormal gait and Denies lack of coordination Physical exam (Primary Care) Vital Signs: Last Vital Signs BP 138/76 09/10/22 08:14 BMI result Body Mass Index 35.4 Tobacco/Smoking Status: Tobacco use Status Tobacco use date assessed 05/08/22 09/10/22 08:18 Patient Tobacco Use Status Former Tobacco user 09/10/22 08:18 Tobacco use type Cigarette 09/10/22 08:18 e-Cigarette/Vaping Use Never Used 09/10/22 08:18 Thrive Assessment: Date of Thrive Assessment Date Thrive assessed 05/08/22 09/10/22 08:18 Eyes General: appearance normal, both eyes and all related structures Eyelids: Yes eyelids normal Conjunctivae: conjunctivae normal Neck Neck: Yes normal visual inspection and Yes supple Resp Effort & Inspection: normal respiratory effort Auscultation: clear to auscultation bilaterally Cardio Jugular venous distension: no JVD Rate: regular rate Rhythm: regular rhythm Heart sounds: S1 normal heart sound present and S2 normal heart sound present Extrem General: Yes full ROM Immunizations pneumoc 20-basilia conj-dip cr(PF) Performing Provider: Analilia Schumacher MD Administered by: LASHONDA Alexander on 09/10/22 08:35 Dose Route Admin Location Lot Number Expiration Date NDC Pharmacy Care Coordinator 0.5 mL IM Left Deltoid [id number] 10/26/23 [email or web address] VIS Given Date VIS Provided VIS Publication Date 09/10/22 Single Vaccine 21 Eligibility Eligibility Date Funding Source Not VF Eligible 09/10/22 Private Assessment and Plan Assessment & Plan (1) Hyperlipidemia LDL goal <70: Code(s): E78.5 - Hyperlipidemia, unspecified Plan: Continue statins. Repeat lipid panel. LDL goal is less than 70. (2) T2DM (type 2 diabetes mellitus): Code(s): E11.9 - Type 2 diabetes mellitus without complications Qualifiers: Diabetes mellitus care home insulin use: with care home use Diabetes mellitus complication status: with hyperglycemia Qualified Code(s): E11.65 - Type 2 diabetes mellitus with hyperglycemia; Z79.4 - longterm (current) use of insulin Plan: Continue insulin. A1c goal is equal or less than 7%. Follow-up with endocrinology. (3) GERD (gastroesophageal reflux disease): Code(s): K21.9 - Gastro-esophageal reflux disease without esophagitis Qualifiers: Esophagitis presence: esophagitis presence not specified Qualified Code(s): K21.9 - Gastro-esophageal reflux disease without esophagitis Plan: Continue pantoprazole as needed. (4) Daytime somnolence: Code(s): R40.0 - Somnolence Plan: Sleep study ordered to rule out obstructive sleep apnea. Orders: Orders Vitamin B12 and Folate Today E53.8 - Deficiency of other specified B group vitamins Comprehensive [place]. Panel Fast Today E78.5 - Hyperlipidemia, unspecified IRON PROFILE Today D64.9 - Anemia, unspecified Lipid Panel Today E78.5 - Hyperlipidemia, unspecified Vitamin D 25-OH Total Today E55.9 - Vitamin D deficiency, unspecified Microalbumin, Random (w Creat) Today E11.9 - Type 2 diabetes mellitus without complications Complete Blood Count Auto Diff Today D64.9 - Anemia, unspecified RT home sleep study Today R40.0 - Somnolence Thyroid Stimulating Hormone Today E06.3 - Autoimmune thyroiditis Vitamin A Today E50.9 - Vitamin A deficiency, unspecified Vitamin B1 Today E51.9 - Thiamine deficiency, unspecified Pneumococcal 20 Immunization Today Z23 - Encounter for immunization Coding Level of Care Code Est Pt Level 4 (81966) Diagnoses Hyperlipidemia LDL goal <70 E78.5 T2DM (type 2 diabetes mellitus) E11.65; Z79.4 Diabetes mellitus care home insulin use: with computer terminal operator use Diabetes mellitus complication status: with hyperglycemia GERD (gastroesophageal reflux disease) K21.9 Esophagitis presence: esophagitis presence not specified Daytime somnolence R40.0 Time Spent (min) 24
[2022-09-10 08:14] VITALS: BP 138/76; BMI 35.4
== END 2022-09-10 08:30 | disposition home or self-care (01) ==
PROVIDERS: PCP Internal Medicine; Visit Provider Internal Medicine
DX: E11.65 Type 2 diabetes mellitus with hyperglycemia (principal); Z79.4 Long term (current) use of insulin; K21.9 Gastro-esophageal reflux disease without esophagitis; Z23 Encounter for immunization; E78.5 Hyperlipidemia, unspecified; R40.0 Somnolence
CPT/HCPCS: 90471; 90677; 99214

== ENCOUNTER → 2022-09-17 14:46 | Outpatient (REF) | payer OTHER, SELFPAY | LOC: HO.SL 14:46 | PROVIDERS: PCP Internal Medicine; Visit Provider Internal Medicine | DX: R40.0 Somnolence (principal); R06.83 Snoring | CPT/HCPCS: 95806 ==

== ENCOUNTER → 2022-09-17 14:56 | Outpatient (BNV) | payer OTHER, SELFPAY | PROVIDERS: PCP Internal Medicine; Visit Provider Internal Medicine | DX: R06.83 Snoring (principal) | CPT/HCPCS: 95806 ==

== ENCOUNTER 2022-09-19 14:14 | Emergency (ER) | payer OTHER, SELFPAY ==
--- NOTE | 2022-09-19 14:42 | ED_ITS ---
HPI - General Adult General Chief complaint: General Medical Stated complaint: sore throat headache fever body aches Time Seen by Provider: 09/19/22 15:52 Source: patient and family Mode of arrival: ambulatory Limitations: no limitations History of Present Illness HPI narrative: 47-year-old female with history of HLD, DM, fibromyalgia, obesity status post gastrectomy, hiatal hernia, Tracee's disease who presents to the ER for evaluation of body aches, generalized weakness, decreased p.o. intake for the last couple of days. she is here with for the family members have similar symptoms. She reports chills at home with denies any known fevers. She has no chest pain, shortness of breath, difficulty breathing, abdominal pain. MD complaint: COVID symptoms, flu symptoms Onset (ago): day(s) Quality: aching Pain Consistency: intermittent Relieving factors: none Exacerbating factors: none Associated symptoms: fever/chills, headaches, loss of appetite, malaise and weakness Treatments prior to arrival: none Related Data Home Medications Medication Instructions Recorded Confirmed artifi.tears(hypromellose)(PF) 0.3 1 drp ophthalmic-Right Q4-6H PRN 12/10/19 09/10/22 % eye drops Dry Eyes diclofenac sodium 75 mg 75 mg PO BID 12/10/19 09/10/22 tablet,delayed release docusate sodium 100 mg capsule 100 mg PO DAILY 12/10/19 09/10/22 nortriptyline 10 mg capsule 10 mg PO BEDTIME 12/10/19 09/10/22 buspirone 10 mg tablet 1 tab PO TID 12/31/19 09/10/22 citalopram 20 mg tablet 1 tab PO DAILY 12/31/19 09/10/22 hydroxyzine HCl 25 mg tablet 1 - 2 tab PO QID 12/31/19 09/10/22 thiamine HCl (vitamin B1) 100 mg 1 tab PO DAILY 12/31/19 09/10/22 tablet vitamin A 3,000 mcg (10,000 unit) 1 cap PO DAILY 12/31/19 09/10/22 capsule citalopram 10 mg tablet 10 mg PO DAILY 08/28/22 09/10/22 Previous Rx's Medication Instructions Recorded ondansetron 4 mg disintegrating 4 mg PO Q6-8H PRN nausea and 01/03/20 tablet vomiting #10 tabs cane #1 ea 07/31/20 blood-glucose meter (FreeStyle #1 ea 09/05/20 Lite Meter kit) syringe with needle, safety 3 mL #1 ea 01/25/21 25 gauge x 5/8 (BD Safety-Jone Detachable Needle) albuterol sulfate 90 mcg/actuation 1 inh inhalation QID PRN shortness 03/04/21 aerosol inhaler of breath or wheezing #8.5 grams nebulizers (AeroEclipse II #1 ea 03/04/21 Nebulizer) terbinafine HCl 250 mg tablet 250 mg PO DAILY 90 days #90 tabs 09/24/21 canagliflozin 300 mg tablet 300 mg PO DAILY 30 days #30 tabs 09/27/21 (Invokana) montelukast 10 mg tablet 10 mg PO DAILY 90 days #90 tabs 11/28/21 Shower Chair #1 ea 12/28/21 cyanocobalamin (vitamin B-12) 1,000 mcg PO DAILY 30 days #30 caps 12/28/21 1,000 mcg capsule methylcellulose (laxative) 2 g PO DAILY PRN constipation #479 12/31/21 (Citrucel Sugar Free oral powder) grams fluticasone propionate 50 1 spray intranasal DAILY 30 days 02/25/22 mcg/actuation nasal #16 grams spray,suspension (Flonase Allergy Relief) albuterol sulfate 2.5 mg/3 mL 2.5 mg (3 mL) inhalation QID PRN 03/07/22 (0.083 %) solution for nebulization shortness of breath or wheezing 25 days #180 mL fluconazole 150 mg tablet 150 mg PO Q3D 2 doses #2 tabs 03/27/22 furosemide 20 mg tablet 20 mg PO BID 90 days #180 tabs 04/14/22 cholecalciferol (vitamin D3) 50 50 mcg PO DAILY 30 days #30 caps 04/17/22 mcg (2,000 unit) capsule hydrocortisone 2.5 % topical cream 1 appl CA BID PRN hemorrhoids #30 04/22/22 with perineal applicator grams (Proctozone-HC) pantoprazole 40 mg tablet,delayed 40 mg PO DAILY 30 days #30 tabs 04/22/22 release simethicone 125 mg chewable tablet 125 mg PO TID-QID PRN abdominal 04/22/22 (Gas Relief (simethicone)) distention #90 tabs lisinopril 10 mg tablet 10 mg PO DAILY 90 days #90 tabs 05/08/22 rosuvastatin 10 mg tablet 10 mg PO DAILY 90 days #90 tabs 05/08/22 tizanidine 4 mg tablet 4 mg PO Q8H PRN muscle spasticity 05/08/22 30 days #90 tabs ibuprofen 400 mg tablet 400 mg PO TID PRN fever or pain 05/31/22 #30 tabs ondansetron 4 mg disintegrating 4 mg PO Q6-8H PRN nausea and 05/31/22 tablet vomiting #14 tabs insulin syringe-needle U-100 1 mL #1 ea 06/11/22 31 gauge x 5/16 (Advocate Syringes) ascorbate calcium (vitamin C) 500 500 mg PO DAILY #60 tabs 06/14/22 mg tablet ferrous sulfate 325 mg (65 mg 325 mg PO DAILY #60 tabs 06/14/22 iron) tablet dulaglutide 3 mg/0.5 mL 3 mg (0.5 mL) subcut QWEEK #2 mL 06/21/22 subcutaneous pen injector (Trulicity) gabapentin 100 mg capsule 100 mg PO TID 30 days #90 caps 06/23/22 acetaminophen 500 mg tablet 500 mg PO Q6H PRN fever or pain 06/26/22 (Tylenol Extra Strength) #14 tabs cyclobenzaprine 5 mg tablet 5 mg PO Q8H PRN pain (scale score 06/26/22 7-10) 5 days #14 tabs lidocaine 5 % topical patch 1 patch topical DAILY PRN pain #30 06/26/22 (Lidoderm) ea blood sugar diagnostic (FreeStyle #100 ea 07/01/22 Lite Strips) cetirizine 10 mg capsule (Zyrtec) 10 mg PO DAILY 90 days #90 caps 07/01/22 benzonatate 100 mg capsule 100 mg PO BID PRN cough 5 days #10 08/20/22 caps hydrocortisone 1 %-pramoxine 1 % 1 appl CA BEDTIME #10 grams 08/20/22 rectal foam (Proctofoam HC) insulin regular hum U-500 conc 500 210 unit (0.42 mL) subcut DAILY 30 08/22/22 unit/mL subcutaneous soln (Humulin days #12.6 mL R U-500 (Concentrated) Insulin) oxycodone-acetaminophen 5 mg-325 1 tab PO Q8H PRN pain 30 days #90 08/23/22 mg tablet tabs barium sulfate 2 % (w/v) oral 450 ml PO DIRECTED 1 day #900 mL 08/28/22 suspension (Readi-Cat 2) Allergies Allergy/AdvReac Type Severity Reaction Status Date / Time adhesive tape [ADHESIVE TAPE] Allergy Intermediate RASH Verified 09/10/22 08:23 pioglitazone [From ACTOS] Allergy Intermediate facial Verified 09/10/22 08:23 edema,rash Review of Systems Review of Systems: Yes all other systems are reviewed and are negative [facility] Past Medical History Medical History Acid reflux Anxiety and depression Asthma Autoimmune thyroiditis B12 deficiency Back pain Carpal tunnel syndrome Cellulitis of toe of right foot Chronic fatigue Daytime hypersomnia Diabetes mellitus Diabetic nephropathy associated with type 2 diabetes mellitus Diabetic polyneuropathy associated with type 2 diabetes mellitus Diabetic retinopathy associated with type 2 diabetes mellitus Fibromyalgia GERD (gastroesophageal reflux disease) Goiter Tracee's disease History of colonic polyps History of Graves' disease History of ulcer disease Hospital discharge follow-up Hyperlipidemia Hyperlipidemia LDL goal <100 Hypertension Iron (Fe) deficiency anemia Left ankle pain Left leg pain senior living (current) use of insulin Lumbar degenerative disc disease Morbid obesity Obesity Onychomycosis Physical exam Polyarthralgia Sessile colonic polyp 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, thoracic, without myelopathy T2DM (type 2 diabetes mellitus) Vitamin D deficiency Surgical History H/O endoscopy H/O gastric bypass History of appendectomy History of carpal tunnel surgery of left wrist History of carpal tunnel surgery of right wrist History of cataract extraction History of lumpectomy of left breast Hx laparoscopic cholecystectomy Hx of section Hx of colonoscopy Hx of esophagogastroduodenoscopy Family History Family History Father Diabetes Hypertension Mother Diabetes Hypertension Maternal Grandmother Colon cancer Paternal Aunt Cancer of ear Social History Social History Household Members: Family Housing: House Alcohol intake: never Patient Tobacco Use Status: Former Tobacco user Quit Date: 2013 Tobacco use type: Cigarette Cigarette Packs Per Day: 1 Cigarettes Per Day: 20.0 Years Smoked: 20 e-Cigarette/Vaping Use: Never Used Second Hand Smoke Exposure: No Advance Directives: No Advance Directives Information Provided: No service: No Current occupational status: disabled Cognitive needs: No Hearing needs: No Vision needs: Yes Physical Exam ED Vital Signs: Vital Signs - 24 hr 09/19/22 14:43 Temperature 98.3 F Pulse Rate 101 H Respiratory Rate 20 Blood Pressure 137/74 Pulse Oximetry 97 Oxygen Delivery Method Room Air BMI result Body Mass Index 34.1 Appearance: Alert. Oriented X3. No acute distress. Head: normocephalic, atraumatic. Eyes: Pupils equal, round and reactive to light. ENT: Pharynx normal. No tonsillar swelling or exudate. Neck: Normal inspection. Neck supple. CVS: Normal heart rate and rhythm. Pulses normal. Respiratory: No respiratory distress. Breath sounds normal. Skin: Skin warm and dry. Normal skin color. Normal skin turgor. No rashes. Extremities: No lower extremity edema. No joint swelling. Neuro/psych: Oriented X 3. grossly normal, nonfocal. Normal speech and cognition. Course Course Course Narrative: This is an RME: Additional HPI, ROS, PE not included below will be deferred to primary provider. This is a [id number]-female, hx of HTN and HLD, presenting to the ER with complaints of sore throat, headaches, fevers, body aches x 3 days ago. VSS. Here with 4 other family members with similar symptoms. Plan: COVID/strep testing ordered. Medical Decision Making Medical Decision Making MDM Narrative: 47-year-old female with history of HLD, DM, fibromyalgia, obesity status post gastrectomy, hiatal hernia, Tracee's disease who presents to the ER for evaluation of body aches, generalized weakness, decreased p.o. intake for the last couple of days. VSS and physical exam is unremarkable. found to be COVID positive along with her 4 other family members. she is vaccinated. her symptoms are mild. no role for paxlovid. no current respiratory involvement at this time. stable for d/c home with supportive care. Differential Diagnosis Differential Diagnoses: The differential diagnosis associated with the presentation includes covid, flu, rsv, viral syndrome Lab Data MDM Lab Attestation statement: I reviewed the patient's lab results. Labs: Lab Results 09/19/22 09/19/22 Range/Units 15:15 15:15 COVID-19 (PAULA) Positive A (Negative) COVID-19 Clin Com See Note S. pyogenes GrpA MATT Negative (Negative) Independent Historian Clinical information obtained from an independent historian. History obtained from or confirmed by: Spouse and Other (adult family members) External Record Review External record reviewed: Prior outpatient labs and Prior outpatient radiology Tests considered The following testing was considered but not selected: cxr considered Prescription Management I considered prescription management with: Antiviral Chronic Conditions Patient?s care impacted by: Hypertension Critical Care Time Critical Care Time Critical Care Time: No Discharge Plan Discharge Clinical Impression: COVID-19 Patient Disposition: Home, Self-Care Instructions: COVID-19 (Coronavirus Disease 2019) (ED) Additional Instructions: You were found to be COVID-19 POSITIVE today. You were negative for Strep thro at. Your chest x-ray and oxygen levels were normal. Rest. Drink plenty of fluids. Do not go out in public for the next 10 days. Take over the counter cold/flu medications as needed for your symptoms. Take Tylenol and/or Motrin as needed for fevers and body aches. Follow up with your doctor this week. If you shortness of breath worsens , if you develop difficulty breathing or any other concerning symptom come back to the ER for further evaluation. Prescriptions: No Action (DME) cane Device See Rx Instructions .ROUTE .MEDSUPPLY Qty: 1 0RF Rx Instructions: As directed (DME) blood-glucose meter [FreeStyle Lite Meter] Kit See Rx Instructions .ROUTE .MEDSUPPLY Qty: 1 0RF Rx Instructions: TEST 4 TIMES DAILY (DME) BD Safety-Jone Detachable Needl 3 mL 25 gauge x 5/8 syringe See Rx Instructions .ROUTE .MEDSUPPLY Qty: 1 6RF Rx Instructions: Use 1 syringe once a month terbinafine HCl 250 mg tablet 250 mg PO DAILY 90 Days Qty: 90 0RF Invokana 300 mg tablet 300 mg PO DAILY 30 Days Qty: 30 11RF montelukast 10 mg tablet 10 mg PO DAILY 90 Days Qty: 90 3RF cyanocobalamin (vitamin B-12) 1,000 mcg capsule 1,000 mcg PO DAILY 30 Days Qty: 30 11RF (DME) Shower Chair Misc See Rx Instructions .Route Qty: 1 0RF Rx Instructions: As directed fluticasone propionate [Flonase Allergy Relief] 50 mcg/actuation spray,suspension 1 spray intranasal DAILY 30 Days Qty: 16 1RF Rx Instructions: administer into each nostril albuterol sulfate 2.5 mg /3 mL (0.083 %) solution for nebulization 2.5 mg inhalation QID PRN (Reason: shortness of breath or wheezing) 25 Days Qty: 180 0RF fluconazole 150 mg tablet 150 mg PO Q3D Qty: 2 0RF furosemide 20 mg tablet 20 mg PO BID 90 Days Qty: 180 1RF cholecalciferol (vitamin D3) 50 mcg (2,000 unit) capsule 50 mcg PO DAILY 30 Days Qty: 30 11RF tizanidine 4 mg tablet 4 mg PO Q8H PRN (Reason: muscle spasticity) 30 Days Qty: 90 8RF rosuvastatin 10 mg tablet 10 mg PO DAILY 90 Days Qty: 90 1RF lisinopril 10 mg tablet 10 mg PO DAILY 90 Days Qty: 90 1RF (DME) insulin syringe-needle U-100 [Advocate Syringes] 1 mL 31 gauge x 5/16 syringe See Rx Instructions .Route Qty: 1 2RF Rx Instructions: Use 1 needle once a month ferrous sulfate 325 mg (65 mg iron) tablet 325 mg PO DAILY Qty: 60 0RF ascorbate calcium (vitamin C) 500 mg tablet 500 mg PO DAILY Qty: 60 0RF Trulicity 3 mg/0.5 mL pen injector 3 mg subcut QWEEK Qty: 2 1RF gabapentin 100 mg capsule 100 mg PO TID 30 Days Qty: 90 1RF (DME) FreeStyle Lite Strips Strip See Rx Instructions .ROUTE .MEDSUPPLY Qty: 100 8RF Rx Instructions: TEST 4 TIMES DAILY Zyrtec 10 mg capsule 10 mg PO DAILY 90 Days Qty: 90 3RF benzonatate 100 mg capsule 100 mg PO BID PRN (Reason: cough) 5 Days Qty: 10 0RF Proctofoam HC 1-1 % foam 1 appl CA BEDTIME Qty: 10 3RF Humulin R U-500 (Conc) Insulin 500 unit/mL solution 210 unit subcut DAILY 30 Days Qty: 12.6 11RF oxycodone-acetaminophen 5-325 mg tablet 1 tab PO Q8H PRN (Reason: pain) 30 Days Qty: 90 0RF citalopram 20 mg tablet 1 tab PO DAILY buspirone 10 mg tablet 1 tab PO TID thiamine HCl (vitamin B1) 100 mg tablet 1 tab PO DAILY vitamin A 10,000 unit capsule 1 cap PO DAILY hydroxyzine HCl 25 mg tablet 1 - 2 tab PO QID ondansetron 4 mg tablet,disintegrating 4 mg PO Q6-8H PRN (Reason: nausea and vomiting) Qty: 10 0RF albuterol sulfate 90 mcg/actuation HFA aerosol inhaler 1 inh inhalation QID PRN (Reason: shortness of breath or wheezing) Qty: 8.5 0RF (DME) AeroEclipse II Nebulizer Misc See Rx Instructions .ROUTE .MEDSUPPLY Qty: 1 0RF Rx Instructions: As directed ibuprofen 400 mg tablet 400 mg PO TID PRN (Reason: fever or pain) Qty: 30 0RF ondansetron 4 mg tablet,disintegrating 4 mg PO Q6-8H PRN (Reason: nausea and vomiting) Qty: 14 0RF acetaminophen [Tylenol Extra Strength] 500 mg tablet 500 mg PO Q6H PRN (Reason: fever or pain) Qty: 14 0RF lidocaine [Lidoderm] 5 % adhesive patch,medicated 1 patch topical DAILY MDD remove after 12 hours PRN (Reason: pain) Qty: 30 0RF Rx Instructions: leave on most painful area for up to 12 hrs cyclobenzaprine 5 mg tablet 5 mg PO Q8H PRN (Reason: pain (scale score 7-10)) 5 Days Qty: 14 0RF diclofenac sodium 75 mg tablet,delayed release (DR/EC) 75 mg PO BID artifi.tears(hypromellose)(PF) 0.3 % drops 1 drp ophthalmic-Right Q4-6H PRN (Reason: Dry Eyes) nortriptyline 10 mg capsule 10 mg PO BEDTIME docusate sodium 100 mg capsule 100 mg PO DAILY Citrucel Sugar Free Powder 2 g PO DAILY PRN (Reason: constipation) Qty: 479 2RF hydrocortisone [Proctozone-HC] 2.5 % cream with perineal applicator 1 appl CA BID PRN (Reason: hemorrhoids) Qty: 30 3RF Rx Instructions: apply CA BID prn pantoprazole 40 mg tablet,delayed release (DR/EC) 40 mg PO DAILY 30 Days Qty: 30 11RF simethicone [Gas Relief (simethicone)] 125 mg tablet,chewable 125 mg PO TID-QID PRN (Reason: abdominal distention) Qty: 90 2RF citalopram 10 mg tablet 10 mg PO DAILY Readi-Cat 2 2 % (w/v) suspension 450 ml PO DIRECTED 1 Days Qty: 900 0RF Interventions: ED Discharge Assessment Last Done: 09/19/22 16:50 Discharge Date/Time: 09/19/22 16:51 Print Language: Persian
[2022-09-19 14:43] VITALS: BP 137/74; PULSE 101; RESP 20; TEMP 36.8; O2SAT 97; BMI 34.1
[2022-09-19 15:55] LABS: IDNOW Serial# 6674DD1D; Strep A Nucleic Acid Negative (Negative)
[2022-09-19 16:01] LABS: COVID-19 Test Positive (Negative); IDNOW Serial# 55D5AD1C
== END 2022-09-19 16:51 | disposition home or self-care (01) ==
PROVIDERS: Physician Assistant Medical; Emergency Provider Internal Medicine; PCP Internal Medicine
DX: U07.1 COVID-19 (principal); J02.8 Acute pharyngitis due to other specified organisms; R50.9 Fever, unspecified; M79.10 Myalgia, unspecified site; Z98.84 Bariatric surgery status; Z79.899 Other long term (current) drug therapy; Z87.891 Personal history of nicotine dependence
CPT/HCPCS: 87635; 87651; 99283

== ENCOUNTER 2022-10-10 08:39 | Outpatient (REF) | payer OTHER, SELFPAY ==
--- NOTE | ~2022-10-10 | CT_ITS ---
EXAMINATION: CT ABDOMEN AND PELVIS WITH CONTRAST CLINICAL INFORMATION: Abnormal mass on ultrasound. COMPARISON: Abdominal ultrasound 08/08/2022: Similar-appearing cystic 9 x 5 x 6 cm structure inferior to the left lobe of the liver. This may be related to bowel. This could be further evaluated with CT if clinically indicated . CT abdomen and pelvis 05/26/2018. TECHNIQUE: Multidetector volumetric images were obtained from the superior aspect of the liver through the pubic symphysis following administration 85 mL of Omnipaque 350 intravenous contrast. Sagittal and coronal reformatted images were obtained on the technologist's workstation. Oral contrast: No. This CT examination was performed using dose optimization techniques as appropriate, variously including the following: *Automated exposure control *Adjustment of mA and/or kV according to patient size (this includes techniques or standardized protocols for targeted exams where dose is matched to indication/reason for exam; i.e. extremities or head) *Use of iterative reconstruction technique DLP: 1000 mGy-cm FINDINGS: LUNG BASES: The visualized lung bases are unremarkable. LIVER, GALLBLADDER, AND BILIARY TREE: The liver is normal in size, shape, and attenuation. No focal hepatic lesion or biliary ductal dilatation is present. The gallbladder is unremarkable with no evidence of radiopaque gallstones, gallbladder wall thickening, or obvious pericholecystic inflammatory changes. A corresponding abnormality seen to the fluid-filled mass on ultrasound is not found and I suspect this most likely represented fluid-filled bowel. PANCREAS: Unremarkable. SPLEEN: Unremarkable. ADRENAL GLANDS: Unremarkable. KIDNEYS AND URETERS: The kidneys are normal in size, shape, and attenuation. Again seen is right-sided pelvocaliectasis, probably slightly increased when compared to 05/26/2018. Fullness of the right collecting system can also be seen on the recent CT scan. The right ureter is unremarkable and a cause for this is not seen. No left-sided hydronephrosis, hydroureter, or calculi seen. No renal masses. No perinephric stranding. BLADDER: Unremarkable. GASTROINTESTINAL TRACT: There has been prior gastric bypass surgery. A small hiatal hernia is present. The small and large bowel are unremarkable. The appendix is unremarkable. ABDOMINAL WALL: No significant hernia is appreciated. LYMPH NODES: No retroperitoneal lymphadenopathy. VASCULAR: Mild calcific plaque without aneurysm. PELVIC VISCERA: The uterus and adnexa are unremarkable. OSSEOUS STRUCTURES: There is an exaggerated lumbar lordosis. There is mild anterior wedging of multiple lower thoracic vertebral bodies. No bony destructive lesions. CT/CT abdomen pelvis w IV con IMPRESSION: 1. There is right-sided pelvocaliectasis which has increased slightly when compared to the prior CT scan. A cause for this is not seen. No renal masses are seen. No nephrolithiasis. 2. Incidental note made of prior gastric bypass surgery, small hiatal hernia and degenerative changes in the spine. 3. A pathologic cystic mass corresponding to the abnormality seen on ultrasound is not present. This finding most likely represented fluid-filled bowel. Fleischner guidelines were followed.
[2022-10-10] MEDS: Barium Sulfate Oral (Berry) 450 ML ORAL.SUSP 900 ML PO (11:43)
[2022-10-10] MEDS: iohexoL 350 MG/ML 100 ML INFUS..BTL IV (11:44)
== END 2022-10-10 08:40 | disposition home or self-care (01) ==
LOC: HO.CT 08:39
PROVIDERS: Visit Provider Physician Assistant
DX: R93.5 Abnormal findings on diagnostic imaging of other abdominal regions, including retroperitoneum (principal)
CPT/HCPCS: 74177; Q9967

== ENCOUNTER 2022-10-14 08:00 | Outpatient (AMB) | payer OTHER, SELFPAY ==
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
[2022-10-14 08:22] VITALS: BP 142/80; BMI 33.9
[2022-10-14 09:54] VITALS: BP 138/80
== END 2022-10-14 09:04 | disposition home or self-care (01) ==
PROVIDERS: Visit Provider Internal Medicine
DX: E11.65 Type 2 diabetes mellitus with hyperglycemia (principal); Z79.4 Long term (current) use of insulin; K21.9 Gastro-esophageal reflux disease without esophagitis; M75.52 Bursitis of left shoulder; M54.2 Cervicalgia; E11.9 Type 2 diabetes mellitus without complications
CPT/HCPCS: 83036; 99214

== ENCOUNTER 2022-11-06 09:13 | Outpatient (AMB) | payer OTHER, SELFPAY ==
--- NOTE | 2022-11-06 09:18 | A.OFFVIS_ITS ---
Intake Vital Signs 11/06/22 09:29 Height 5 ft 10 in Weight 236 lb BMI 33.9 Intake Visit Reasons: NewProb- LT shoulder bursitis Intake Note: Anitha a 47 year old right hand dominant female who presents today for an evaluation of left shoulder. Patient reports pain present for over 6 months, denies injury. Pain radiates into her neck and numbness and tingling that travels down to her hand. She has attended PT for her back. Hx of shoulder and neck injections through pain management. Finds no relief with Motrin. Sock Knitter Name: Kam ID#[id number] Allergies adhesive tape [ADHESIVE TAPE] Allergy (Intermediate, Verified 11/06/22 09:26) RASH pioglitazone [From ACTOS] Allergy (Intermediate, Verified 11/06/22 09:26) facial edema,rash HPI NewProb- LT shoulder bursitis HPI Details 47-year-old right hand dominant female ashley lemos presents to the office today for evaluation of left shoulder pain for about 6 months. she states she has pain in her left shoulder which radiates to her neck and back. Her pain is aggravated in the morning. She also c/o numbness and tingling which radiates down to her hand and experiences pain and weakness with overhead reaching and reaching back. She had undergone physical therapy in the past for her back.. She was given trigger point injections February 2022 by pain management which provided her mild relief. She finds no relief with Motrin. She has a history of diabetes. Her sugar level was 142 in the morning. [facility] Medical History Acid reflux Anxiety and depression Asthma Autoimmune thyroiditis B12 deficiency Back pain Carpal tunnel syndrome Cellulitis of toe of right foot Chronic fatigue Daytime hypersomnia Diabetes mellitus Diabetic nephropathy associated with type 2 diabetes mellitus Diabetic polyneuropathy associated with type 2 diabetes mellitus Diabetic retinopathy associated with type 2 diabetes mellitus Fibromyalgia GERD (gastroesophageal reflux disease) Goiter Tracee's disease History of colonic polyps History of Graves' disease History of ulcer disease Hospital discharge follow-up Hyperlipidemia Hyperlipidemia LDL goal <100 Hypertension Iron (Fe) deficiency anemia Left ankle pain Left leg 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 Lumbar degenerative disc disease Morbid obesity Obesity Onychomycosis Physical exam Polyarthralgia Sessile colonic polyp 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, thoracic, without myelopathy T2DM (type 2 diabetes mellitus) Vitamin D deficiency Surgical History History of appendectomy History of carpal tunnel surgery of right wrist H/O endoscopy History of cataract extraction History of lumpectomy of left breast History of carpal tunnel surgery of left wrist Hx of section Hx laparoscopic cholecystectomy Hx of esophagogastroduodenoscopy Hx of colonoscopy H/O gastric bypass Family History Father Diabetes Hypertension Mother Diabetes Hypertension Maternal Grandmother Colon cancer Paternal Aunt Cancer of ear Social History (Updated 11/06/22 @ 09:29 by LASHONDA Casey) Household Members: Family Housing: House Alcohol intake: never Patient Tobacco Use Status: Former Tobacco user Quit Date: 2013 Tobacco use type: Cigarette Cigarette Packs Per Day: 1 Cigarettes Per Day: 20.0 Years Smoked: 20 e-Cigarette/Vaping Use: Never Used Second Hand Smoke Exposure: No service: No Current occupational status: disabled Current occupation: right hand dominant Cognitive needs: No Hearing needs: No Vision needs: Yes Review of Systems Const All systems reviewed & are unremarkable except as noted in HPI and below Physical Exam Vital Signs: BMI result Body Mass Index 33.9 Const General: cooperative and no acute distress Orientation/consciousness: patient oriented x3 Resp Effort & Inspection: normal respiratory effort and able to speak in complete sentences Cardio Peripheral pulses: Peripheral pulses 2+ throughout Neuro General: patient oriented x3 Extrem Other: Left shoulder normal to inspection. Tenderness over the bicipital groove and along the deltoid region of the shoulder. Forward flexion to 175, external rotation to 90, internal rotation to S1. 5/5 RTC strength. Positive Tinajero. NVI. Office Procedures Joint Injection/Drain Joint Injection/Drain Primary Site: left shoulder Prep: site was prepped using aseptic technique, ethochloride spray was applied and injection warnings given Injected: 40 mg of, 80 mg of, with 8 mL of, 1% plain lidocaine and in the subcromial space Approach Used: posterolateral Procedure: The patient tolerated the procedure well and there was some relief with the local anesthesia Coding 12791 - Glenohumeral/Tronchanteric Bursa/Intraarticular Procedure code (CPT) selection complete Results Reviewed Results Reviewed: 11/06/22 09:37 Lidocaine HCl 2 % MPF [Xylocaine 2 % MPF] 5 ml .ROUTE .STK-MED ONE methylPREDNISolone acetate [DEPO-MedroL] 40 mg .ROUTE .STK-MED ONE xrays of the left shoulder show calcific tendonitis with mild ac joint oa Assessment & Plan Assessment & Plan (1) Calcific tendonitis of left shoulder: Code(s): M75.32 - Calcific tendinitis of left shoulder Plan We discussed options today which include steroid injection. They did consent to move forward with the left shoulder injection, which was tolerated well. I recommended rest, ice and elevation and OTC anti-inflammatories PRN for discomfort. She was also referred to a course of physical therapy in the office today. We also discussed their diabetes and the effect the steroid can have on their blood glucose levels; therefore, they will continue to monitor these very closely over the next 72 hours. If there are any concerns, they should report to the ED immediately. Orders: Orders PT Evaluation and Treatment Today M75.32 - Calcific tendinitis of left shoulder Patient Instructions: Scribed for Tabatha Coles PA-C, by Hector Joe medical reimbursement manager, on 11/06/2022 at 9:45 AM EST. ITabatha PA-C, have personally reviewed and agree with the information entered by the scribe. Coding Level of Care Code New Pt Level 3 (89323) Diagnoses Calcific tendonitis of left shoulder M75.32 CPT Codes Coding - Joint 7: 29545 - Glenohumeral/Tronchanteric Bursa/Intraarticular ([id number])
[2022-11-06 09:29] VITALS: BMI 33.9
== END 2022-11-06 09:56 | disposition home or self-care (01) ==
PROVIDERS: PCP Internal Medicine; Visit Provider Physician Assistant
DX: M75.32 Calcific tendinitis of left shoulder (principal)
CPT/HCPCS: 20610; 99214

== ENCOUNTER → 2022-11-06 09:13 | Outpatient (BNVA) | payer OTHER, SELFPAY | PROVIDERS: PCP Internal Medicine; Visit Provider Physician Assistant | DX: M75.32 Calcific tendinitis of left shoulder (principal) | CPT/HCPCS: 20610; J1020 ==

== ENCOUNTER 2022-11-08 09:37 | Outpatient (AMB) | payer OTHER, SELFPAY ==
[2022-11-08 09:39] VITALS: BP 156/86; BMI 33.9
--- NOTE | 2022-11-08 09:39 | MHC.OFFVIS ---
Intake Vital Signs 11/08/22 09:39 Height 5 ft 10 in Weight 236 lb BMI 33.9 BP 156/86 H Intake Visit Reasons: [employer] irregular menstrual Intake Note: LEft Lower abdominal pain was told in the past that she had a cyst and is also having irregular menses. Credit Cashier Required: Yes Credit Cashier Language: Bruneian Information Interpreted: non-clinical & clinical Spot Sprayer: Spot Sprayer Present (Aidyn) Allergies adhesive tape [ADHESIVE TAPE] Allergy (Intermediate, Verified 11/08/22 09:44) RASH pioglitazone [From ACTOS] Allergy (Intermediate, Verified 11/08/22 09:44) facial edema,rash Medication List - Last Reconciled 11/08/22 by Justine Bowles CNM acetaminophen (Tylenol Extra Strength) 500 mg PO Q6H PRN albuterol sulfate 90 mcg/actuation 1 inh inhalation QID PRN albuterol sulfate 2.5 mg (3 mL) inhalation QID PRN 25 days artifi.tears(hypromellose)(PF) 0.3% 1 drp ophthalmic-Right Q4-6H PRN ascorbate calcium (vitamin C) 500 mg PO DAILY barium sulfate 2%(w/v) (Readi-Cat 2) 450 mL PO DIRECTED 1 day benzonatate 100 mg PO BID PRN 5 days blood sugar diagnostic (FreeStyle Lite Strips) TEST 4 TIMES DAILY blood-glucose meter (FreeStyle Lite Meter kit) TEST 4 TIMES DAILY buspirone 1 tab PO TID canagliflozin (Invokana) 300 mg PO DAILY cane As directed cetirizine (Zyrtec) 10 mg PO DAILY 90 days cholecalciferol (vitamin D3) 50 mcg PO DAILY 30 days citalopram 1 tab PO DAILY citalopram 10 mg PO DAILY cyanocobalamin (vitamin B-12) 1,000 mcg PO DAILY 30 days cyclobenzaprine 5 mg PO Q8H PRN 5 days diclofenac sodium 75 mg PO BID docusate sodium 100 mg PO DAILY dulaglutide (Trulicity) 1.5 mg (0.5 mL) subcut QWEEK ferrous sulfate 325 mg PO DAILY fluconazole 150 mg PO Q3D 2 doses fluticasone propionate 50 mcg/actuation (Flonase Allergy Relief) 1 spray intranasal DAILY 30 days furosemide 20 mg PO BID 90 days gabapentin 100 mg PO TID 30 days hydrocortisone 2.5% (Proctozone-HC) 1 appl GA BID PRN hydrocortisone-pramoxine 1-1 % (Proctofoam HC) 1 appl GA BEDTIME hydroxyzine HCl 1 - 2 tabs PO QID ibuprofen 400 mg PO TID PRN insulin regular hum U-500 conc (Humulin R U-500 (Concentrated) Insulin) 210 units (0.42 mL) subcut DAILY 30 days insulin syringe-needle U-100 (Advocate Syringes) Use 1 needle once a month lidocaine 5% (Lidoderm) 1 patch topical DAILY PRN MDD remove after 12 hours lisinopril 10 mg PO DAILY 90 days methylcellulose (laxative) (Citrucel Sugar Free oral powder) 2 grams PO DAILY PRN montelukast 10 mg PO DAILY 90 days nebulizers (AeroEclipse II Nebulizer) As directed nortriptyline 10 mg PO BEDTIME ondansetron 4 mg PO Q6-8H PRN ondansetron 4 mg PO Q6-8H PRN oxycodone-acetaminophen 5-325 mg 1 tab PO Q8H PRN 30 days pantoprazole 40 mg PO DAILY 30 days rosuvastatin 10 mg PO DAILY 90 days Shower Chair As directed simethicone (Gas Relief Extra Strength) 125 mg PO TID-QID PRN syringe with needle, safety (BD Safety-Jone Detachable Needle) Use 1 syringe once a month terbinafine HCl 250 mg PO DAILY 90 days thiamine HCl (vitamin B1) 1 tab PO DAILY tizanidine 4 mg PO Q8H PRN 30 days vitamin A 1 cap PO DAILY Is last menstrual period known: Yes Last menstrual period: 09/22/22 Post menopausal: No HPI [employer] irregular menstrual HPI Details Patient is here for visit to discuss her irregular menses she has started skipping menstrual periods for a while now last November she had a period November of 2021 in December in January she had no period in February and March she had a period each month and then no period in April or May or June and then July and August she had periods they usually always last about 3 days they are not very very heavy. She does have some discomfort in her abdomen these days that feels a little bit like it might be her. Trying to come. She also suffers from constipation diabetes high blood pressure fibromyalgia tendonitis arthritis scoliosis and a number of other issues she also has a number of gastrointestinal issues. She does suffer from constipation as well she takes Colace and fiber for that. She says her diabetes is better controlled because now she has a pump. She also has been followed for anemia and low vitamin B12. 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 Diabetic nephropathy associated with type 2 diabetes mellitus Diabetic retinopathy associated with type 2 diabetes mellitus Diabetic polyneuropathy associated with type 2 diabetes mellitus Iron (Fe) deficiency anemia History of Graves' disease Lumbar degenerative disc disease Back pain Anxiety and depression GERD (gastroesophageal reflux disease) Asthma Hyperlipidemia Hypertension Diabetes mellitus Polyarthralgia Surgical History History of appendectomy History of carpal tunnel surgery of right wrist H/O endoscopy History of cataract extraction History of lumpectomy of left breast History of carpal tunnel surgery of left wrist Hx of section Hx laparoscopic cholecystectomy Hx of esophagogastroduodenoscopy Hx of colonoscopy H/O gastric bypass Family History Father Diabetes Hypertension Mother Diabetes Hypertension Maternal Grandmother Colon cancer Paternal Aunt Cancer of ear Social History Household Members: Family Housing: House Alcohol intake: never Patient Tobacco Use Status: Former Tobacco user Quit Date: 2013 Tobacco use type: Cigarette Cigarette Packs Per Day: 1 Cigarettes Per Day: 20.0 Years Smoked: 20 e-Cigarette/Vaping Use: Never Used Second Hand Smoke Exposure: No service: No Current occupational status: disabled Current occupation: right hand dominant Cognitive needs: No Hearing needs: No Vision needs: Yes Female Reproductive History Menstrual Age of Menarche: 14 Duration of menses: 3-5 days Date of last menstrual period: 09/22/22 control method: none Total pregnancies: 3 Full term: 1 Number of Living Children: 1 Ab spontaneous: 2 Date of last pap smear: 10/20/19 (negative) History of abnormal pap smear: Yes Date of Mammogram: 03/01/22 Physical Exam Vital Signs: Last Vital Signs BP 156/86 H 11/08/22 09:39 BMI result Body Mass Index 33.9 Results Reviewed Results Reviewed: [address] [address] [address] Scan Report Signed Patient: Anitha Dean MR#: [id number] : 1975 Acct:[id number] Age/Sex: 47 / F ADM Date: 10/10/22 Loc: HO.CT Attending Dr: Emma Francois PA-C Ordering Physician: Emma Francois PA-C Date of Service: 10/10/22 Procedure(s): CT abdomen pelvis w IV con Accession Number(s): [id number] cc: Emma Francois PA-C~ EXAMINATION: CT ABDOMEN AND PELVIS WITH CONTRAST CLINICAL INFORMATION: Abnormal mass on ultrasound. COMPARISON: Abdominal ultrasound 08/08/2022: Similar-appearing cystic 9 x 5 x 6 cm structure inferior to the left lobe of the liver. This may be related to bowel. This could be further evaluated with CT if clinically indicated . CT abdomen and pelvis 05/26/2018. TECHNIQUE: Multidetector volumetric images were obtained from the superior aspect of the liver through the pubic symphysis following administration 85 mL of Omnipaque 350 intravenous contrast. Sagittal and coronal reformatted images were obtained on the technologist's workstation. Oral contrast: No. This CT examination was performed using dose optimization techniques as appropriate, variously including the following: *Automated exposure control *Adjustment of mA and/or kV according to patient size (this includes techniques or standardized protocols for targeted exams where dose is matched to indication/reason for exam; i.e. extremities or head) *Use of iterative reconstruction technique DLP: 1000 mGy-cm FINDINGS: LUNG BASES: The visualized lung bases are unremarkable. LIVER, GALLBLADDER, AND BILIARY TREE: The liver is normal in size, shape, and attenuation. No focal hepatic lesion or biliary ductal dilatation is present. The gallbladder is unremarkable with no evidence of radiopaque gallstones, gallbladder wall thickening, or obvious pericholecystic inflammatory changes. A corresponding abnormality seen to the fluid-filled mass on ultrasound is not found and I suspect this most likely represented fluid-filled bowel. PANCREAS: Unremarkable. SPLEEN: Unremarkable. ADRENAL GLANDS: Unremarkable. KIDNEYS AND URETERS: The kidneys are normal in size, shape, and attenuation. Again seen is right-sided pelvocaliectasis, probably slightly increased when compared to 05/26/2018. Fullness of the right collecting system can also be seen on the recent CT scan. The right ureter is unremarkable and a cause for this is not seen. No left-sided hydronephrosis, hydroureter, or calculi seen. No renal masses. No perinephric stranding. BLADDER: Unremarkable. GASTROINTESTINAL TRACT: There has been prior gastric bypass surgery. A small hiatal hernia is present. The small and large bowel are unremarkable. The appendix is unremarkable. ABDOMINAL WALL: No significant hernia is appreciated. LYMPH NODES: No retroperitoneal lymphadenopathy. VASCULAR: Mild calcific plaque without aneurysm. PELVIC VISCERA: The uterus and adnexa are unremarkable. OSSEOUS STRUCTURES: There is an exaggerated lumbar lordosis. There is mild anterior wedging of multiple lower thoracic vertebral bodies. No bony destructive lesions. CT/CT abdomen pelvis w IV con IMPRESSION: 1. There is right-sided pelvocaliectasis which has increased slightly when compared to the prior CT scan. A cause for this is not seen. No renal masses are seen. No nephrolithiasis. 2. Incidental note made of prior gastric bypass surgery, small hiatal hernia and degenerative changes in the spine. 3. A pathologic cystic mass corresponding to the abnormality seen on ultrasound is not present. This finding most likely represented fluid-filled bowel. Fleischner guidelines were followed. Dictated By: Levar Wilcox MD Signed By: <Electronically signed by Levar Wilcox MD in OV> 10/10/22 1744 DD/ 1140 TD/TT: Rate Reviewer: REYES alyce: Anitha Dean Age/Sex: 47/F : 1975 Unit#: [id number] Attend Dr: Shantal Toth [facility] Re06/21/22 Status: DEP [facility] Disch: SPEC : [id number] ANDREA: 06/21/22 STATUS: COMP REQ : [id number] RECD: 06/21/[address]: Shantal Toth [facility] COMP: 06/21/22 ENTERED: 06/21/[address]: Analilia Chaidez MD ORDERED: CBC Auto Diff Test Result Flag Reference Site WBC 7.8 4.8-10.8 X10*3/uL RBC 4.33 4.20-5.50 X10*6/uL HGB 10.3 L 12.0-16.0 g/dl HCT 32.7 L 37.0-47.0 % MCV 75.5 L 80.0-98.0 fL MCH 23.8 L 27.0-33.0 pg MCHC 31.5 31.0-35.0 g/dl RDW 14.4 11.0-16.0 % PLT 306 160-400 X10*3/uL MPV 10.4 9.4-12.3 fL Neut Pct Auto 66.8 45-73 % ImGran Pct Auto 0.4 0.0-0.4 % Lymp Pct Auto 23.4 20-40 % Henderson Pct Auto 7.7 2-11 % Eos Pct Auto 1.4 0-4 % Baso Pct Auto 0.3 0-2 % NRBC Pct Auto 0.0 0.0-0.2 /100WBC ANC Neut Abs # 5.2 2.0-8.3 x10*3/uL ImGran Abs Auto 0.03 0.00-0.03 X10*3/uL Lymph Abs Auto 1.8 1.2-4.9 X10*3/uL Henderson Abs Auto 0.6 0.1-1.2 X10*3/uL Eos Abs Auto 0.1 0.0-0.4 X10*3/uL Baso Abs Auto 0.0 0.0-0.2 X10*3/uL NRBC Abs Auto 0.000 0.0-0.012 X10*3/uL Name: Anitha Dean Age/Sex: 47/F : 1975 Unit#: [id number] Attend Dr: Shantal Toth [facility] Re06/21/22 Status: DEP [facility]F [facility] Disch: SPEC : [id number] ANDREA: 06/21/22 STATUS: COMP REQ : [id number] RECD: 06/21/[address]: Shantal Toth [facility] COMP: 06/21/22-7 ENTERED: 06/21/22-[address]: Sita Montes Ana M MD ORDERED: CMP, TSH Rflx Test Result Flag Reference Site Sodium 133 L 135-145 mmol/L Potassium 4.3 3.3-5.1 mmol/L CL 100 96-108 mmol/L CO2 24 22-29 mmol/L Gap 13 12-20 BUN 14 9-16 mg/dL Creat 0.80 0.5-1.4 mg/dL EGFR > 60 NOTE: For -Romanian individuals, multiply the result by 1.210. Chronic Kidney Disease: Estimated GFR < 60 mL/min/1.73m2 Severe Kidney Disease: Estimated GFR < 15 mL/min/1.73m2 Glucose, Random 376 *H 60-115 mg/dL Critical value for GLUCOSE: Results called to and read back by: ESTEFANIA Person calling: ELIESERGUILLERMINAROCJ Date: 06/21/22 Time: 13:11 CA 9.0 8.4-10.2 mg/dL Total Bili 0.4 0.0-1.0 mg/dL AST (GOT) 16 5-31 U/L ALT (GPT) 24 0-31 U/L Protein, Total 6.7 6.5-8.0 g/dL Alb 3.9 3.5-5.0 g/dL Alk Phos 115 39-117 U/L TSH 1.73 0.32-4.0 uIU/mL Assessment & Plan Assessment & Plan (1) History of irregular menstrual bleeding: Code(s): Z87.42 - Personal history of other diseases of the female genital tract (2) Perimenopausal symptoms: Code(s): N95.1 - Menopausal and female climacteric states Plan Patient is here for visit to discuss her irregular menses she has started skipping menstrual periods for a while now last November she had a period November of 2021 in December in January she had no period in February and March she had a period each month and then no period in April or May or June and then July and August she had periods they usually always last about 3 days they are not very very heavy. She does have some discomfort in her abdomen these days that feels a little bit like it might be her. Trying to come. She also suffers from constipation diabetes high blood pressure fibromyalgia tendonitis arthritis scoliosis and a number of other issues she also has a number of gastrointestinal issues. She does suffer from constipation as well she takes Colace and fiber for that. She says her diabetes is better controlled because now she has a pump. She also has been followed for anemia and low vitamin B12.- I reviewed her labs her recent she glucose testing has been significantly elevated and her last hemoglobin A1c was 9.7 in the office. She says things are better controlled with the pump but I encouraged her to continue her best efforts to eat well and also to move to help her fibromyalgia and other arthritic symptoms. She said she is going to PT and I encouraged her to continue in that vein. Discussed that most likely she is having wes menopausal symptoms at this time and her periods are starting to be irregular because of that. Her mother was 40 when she went through menopause I will check a the [facility] although it is less than a year since she has had a menses but just to see if there is starting to be any trend. I will also check her CBC and TSH though she was shown to be a little bit anemic in May and her last TSH and all TSHs have been within the normal range. When she returns for review of all of these plus the pelvic ultrasound that I am ordering we will do physical exam and Pap smear if it is due. She had her last normal Pap smear in 2019 and had abnormals in the past so she may be due. She agrees with this plan. Also because she says she has used rhythm all her life for her method of control and she is sexually active with her I encouraged her to be very acutely aware of any symptoms of ovulation because rhythm really only applies if somebody is having a regular cycle and a non intended at this stage would not be good. Orders: Orders US pelvic and transvaginal Today N95.1 - Menopausal and female climacteric states, Z87.42 - Personal history of other diseases of the female genital tract Complete Blood Count no Diff Today Z87.42 - Personal history of other diseases of the female genital tract Thyroid Stimulating Hormone Today Z87.42 - Personal history of other diseases of the female genital tract Follicle Stimulating Hormone Today Z87.42 - Personal history of other diseases of the female genital tract Coding Level of Care Code New Pt Level 3 (47831) Diagnoses History of irregular menstrual bleeding Z87.42 Perimenopausal symptoms N95.1
== END 2022-11-08 10:50 | disposition home or self-care (01) ==
PROVIDERS: PCP Internal Medicine; Visit Provider Advanced Practice Midwife
DX: Z87.42 Personal history of other diseases of the female genital tract (principal); N95.1 Menopausal and female climacteric states
CPT/HCPCS: 99203

== ENCOUNTER → 2022-11-08 09:37 | Outpatient (BNVA) | payer OTHER, SELFPAY | PROVIDERS: PCP Internal Medicine; Visit Provider Advanced Practice Midwife ==

== ENCOUNTER 2022-11-22 10:04 | Outpatient (AMB) | payer OTHER, SELFPAY ==
[2022-11-22 10:06] VITALS: BP 144/76; PULSE 80
--- NOTE | 2022-11-22 10:06 | MHC.OFFVIS ---
Intake Vital Signs 11/22/22 10:06 Height 50 ft Weight 236 lb 1.841 oz BMI 0.5 BP 144/76 H Blood Pressure Location Lt brachial Position Sitting Pulse 80 Pulse Source Pulse Oximeter Intake Visit Reasons: F/U T2DM/pump and sensor, pt confirmed Intake Note: New patient to Dr. mckeon present today for Type 2 Diabetes Mellitus. Previously followed by PCP. Last Diabetic Eye exam: 09/19/22 Last Podiatry Visit: 10/2022 Random Glucose: 302 mg/dl HgA1C: 9.7% 10/14/22 Kiln Burner Helper Required: Yes Kiln Burner Helper Language: Melt Room Operator Name: Angelina- medical staff Information Interpreted: non-clinical & clinical Accompanied by: Self / Same As Patient Allergies adhesive tape [ADHESIVE TAPE] Allergy (Intermediate, Verified 11/22/22 10:12) RASH pioglitazone [From ACTOS] Allergy (Intermediate, Verified 11/22/22 10:12) facial edema,rash Medication List - Last Reconciled 11/22/22 by Parmjit Mckeon MD acetaminophen (Tylenol Extra Strength) 500 mg PO Q6H PRN albuterol sulfate 90 mcg/actuation 1 inh inhalation QID PRN albuterol sulfate 2.5 mg (3 mL) inhalation QID PRN 25 days artifi.tears(hypromellose)(PF) 0.3% 1 drp ophthalmic-Right Q4-6H PRN ascorbate calcium (vitamin C) 500 mg PO DAILY barium sulfate 2%(w/v) (Readi-Cat 2) 450 mL PO DIRECTED 1 day benzonatate 100 mg PO BID PRN 5 days blood sugar diagnostic (FreeStyle Lite Strips) TEST 4 TIMES DAILY blood-glucose meter (FreeStyle Lite Meter kit) TEST 4 TIMES DAILY buspirone 1 tab PO TID canagliflozin (Invokana) 300 mg PO DAILY cane As directed cetirizine (Zyrtec) 10 mg PO DAILY 90 days cholecalciferol (vitamin D3) 50 mcg PO DAILY 30 days citalopram 1 tab PO DAILY citalopram 10 mg PO DAILY cyanocobalamin (vitamin B-12) 1,000 mcg PO DAILY 30 days cyclobenzaprine 5 mg PO Q8H PRN 5 days diclofenac sodium 75 mg PO BID docusate sodium 100 mg PO DAILY dulaglutide (Trulicity) 1.5 mg (0.5 mL) subcut QWEEK ferrous sulfate 325 mg PO DAILY fluconazole 150 mg PO Q3D 2 doses fluticasone propionate 50 mcg/actuation (Flonase Allergy Relief) 1 spray intranasal DAILY 30 days furosemide 20 mg PO BID 90 days gabapentin 100 mg PO TID 30 days hydrocortisone 2.5% (Proctozone-HC) 1 appl MS BID PRN hydrocortisone-pramoxine 1-1 % (Proctofoam HC) 1 appl MS BEDTIME hydroxyzine HCl 1 - 2 tabs PO QID ibuprofen 400 mg PO TID PRN insulin regular hum U-500 conc (Humulin R U-500 (Concentrated) Insulin) 210 units (0.42 mL) subcut DAILY 30 days insulin syringe-needle U-100 (Advocate Syringes) Use 1 needle once a month lidocaine 5% (Lidoderm) 1 patch topical DAILY PRN MDD remove after 12 hours lisinopril 10 mg PO DAILY 90 days methylcellulose (laxative) (Citrucel Sugar Free oral powder) 2 grams PO DAILY PRN montelukast 10 mg PO DAILY 90 days nebulizers (AeroEclipse II Nebulizer) As directed nortriptyline 10 mg PO BEDTIME ondansetron 4 mg PO Q6-8H PRN oxycodone-acetaminophen 5-325 mg 1 tab PO Q8H PRN 30 days pantoprazole 40 mg PO DAILY 30 days rosuvastatin 10 mg PO DAILY 90 days Shower Chair As directed simethicone (Gas Relief Extra Strength) 125 mg PO TID-QID PRN syringe with needle, safety (BD Safety-Jone Detachable Needle) Use 1 syringe once a month terbinafine HCl 250 mg PO DAILY 90 days thiamine HCl (vitamin B1) 1 tab PO DAILY tizanidine 4 mg PO Q8H PRN 30 days vitamin A 1 cap PO DAILY HPI HPI Comments History of Present Illness Details 47 YO F with PMHx T2DM who is seen in F/U for the same. She has a history of prior bariatric surgery in June of 2015. The patient last saw Dr. Chi. On 08/08/2021 Current regimen Canagliflozin 300 mg PO daily, Trulicity 1.5 mg once a week and Humulin U-500 in a tandem insulin pump. Pump Settings: Basal rate(s) (units/hour) : 12 AM? to 5 AM? 0.6 units / hr 5 AM? to 12 PM? 0.7 units / hr 12 PM to 5 PM 0.725 units / hr 5 PM to 12 AM 0.8 units / hr? Bolus setting Insulin Carbohydrate Ratio (s) 12 AM? to 12 AM? 1:7 5PM to 12 AM 1:7.5 Correction Factor / Sensitivity Factor 12 AM? to 12 AM? 1:40 Active Insulin Time:? 4 hours Target(s): 12 AM? to 12 AM? 120 mg/dL Her average total daily dose of insulin is 26.39 units/day, with 59% basal, and 32% bolus. She changes her site every 3 days. 14 days of sensor data downloaded from through . This reveals an average glucose of , with range -. She is at goal % of the time, above goal % of the time, and below goal 0% of the time. Reports low sugars rarely. Has symptoms with hypoglycemia. Treats according to the rule of 15's. She does not accurately count carbohydrates out of fear of hypoglycemia if she inputs the correct amount of carbs eaten into her pump. She is not using the sensor and is only checking her blood sugars rarely Has a positive Family history of T2DM. Has eyes checked yearly, last eye exam 2 mos ago , has retinopathy. Has neuropathy. Has nephropathy, on Lisinopril 5 mg PO daily. UAC 17.3 04/14/2021. Has HLD, on rosuvastatin 10 mg PO daily. NLDL 79 04/14/2021. Denies CAD. Diet: Does follow a low carb diet. Weight: Stable. Has diabetes education. Labs: Laboratory Tests 04/14/21 04/14/21 04/14/21 08:19 08:19 08:19 Creatinine 0.69 Estimated GFR > 60 Hemoglobin A1c % 10.3 LDL Cholesterol, C alc 79 25-OH Vitamin D To juan 12 L TSH 1.86 Microalb/Creat Rat io 04/14/21 08:25 Creatinine Estimated GFR Hemoglobin A1c % LDL Cholesterol, C alc 25-OH Vitamin D To juan TSH Microalb/Creat Rat io 17.3 [facility] Medical History Physical exam Hyperlipidemia LDL goal <100 Cellulitis of toe of right foot Hospital discharge follow-up Goiter Onychomycosis Vitamin D deficiency T2DM (type 2 diabetes mellitus) Left ankle pain B12 deficiency Left leg pain Acid reflux History of colonic polyps Chronic fatigue Carpal tunnel syndrome Daytime hypersomnia Autoimmune thyroiditis Fibromyalgia Morbid obesity Spondylosis, thoracic, 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 spine without myelopathy History of ulcer disease Sessile colonic polyp Obesity Tracee's disease 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 of 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 Diabetic nephropathy associated with type 2 diabetes mellitus Diabetic retinopathy associated with type 2 diabetes mellitus Diabetic polyneuropathy associated with type 2 diabetes mellitus Iron (Fe) deficiency anemia History of Graves' disease Lumbar degenerative disc disease Back pain Anxiety and depression GERD (gastroesophageal reflux disease) Asthma Hyperlipidemia Hypertension Diabetes mellitus Polyarthralgia Surgical History History of appendectomy History of carpal tunnel surgery of right wrist H/O endoscopy History of cataract extraction History of lumpectomy of left breast History of carpal tunnel surgery of left wrist Hx of section Hx laparoscopic cholecystectomy Hx of esophagogastroduodenoscopy Hx of colonoscopy H/O gastric bypass Family History Father Diabetes Hypertension Mother Diabetes Hypertension Maternal Grandmother Colon cancer Paternal Aunt Cancer of ear Social History Household Members: Family Housing: House Alcohol intake: never Patient Tobacco Use Status: Former Tobacco user Quit Date: 2013 Tobacco use type: Cigarette Cigarette Packs Per Day: 1 Cigarettes Per Day: 20.0 Years Smoked: 20 e-Cigarette/Vaping Use: Never Used Second Hand Smoke Exposure: No service: No Current occupational status: disabled Current occupation: right hand dominant Cognitive needs: No Hearing needs: No Vision needs: Yes Female Reproductive History Menstrual Age of Menarche: 14 Physical Exam Absence of Cushingoid features. Absence of acromegalic features. Neck exam reveals nl size thyroid about 15 gms. No thyroid nodules palpable. No carotid bruits present. Lungs CTA. Heart S1 S2, Reg R/R. No M/R/ G. Skin exam reveals absence of vitiligo or acanthosis nigricans. Abdominal exam reveals Soft NT/ND with NA BS. No organomegaly present. Neck Other: . Extrem Other: Visual exam of foot performed. Right 2nd toe bandaged No onchomycosis, no callouses.Pulses 2 + distally Sensation intact to monofilament exam. Vibratory sensation sensed is intact with 128 Hz tuning fork Assessment & Plan Assessment & Plan (1) T2DM (type 2 diabetes mellitus): Code(s): E11.9 - Type 2 diabetes mellitus without complications Qualifiers: Diabetes mellitus complication status: with hyperglycemia Diabetes mellitus chcf insulin use: with computer terminal operator use Qualified Code(s): E11.65 - Type 2 diabetes mellitus with hyperglycemia; Z79.4 - 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 of insulin Plan: This is a 47-year-old female with a history of type 2 diabetes being treated with Trulicity, Invokana and U-500 insulin insulin pump with poor glycemic control and known microvascular complications namely nephropathy, retinopathy and neuropathy Plan is to have the patient follow-up with family life educator to try to connect the Dexcom G6 to tandem T-slim X 2. Otherwise, patient was instructed to enter point of cares by glucometer into the pump. Could not make any changes to the pump settings because of lack of information. Patient was told to follow up with Podiatry regarding the toe ulcer Coding Level of Care Code Est Pt Level 4 (46396) Diagnoses Type 2 diabetes mellitus with hyperglycemia, with long-term current use of insulin E11.65; Z79.4 Diabetes mellitus complication status: with hyperglycemia Diabetes mellitus chcf insulin use: with chcf use
[2022-11-22 10:22] LABS: Glucose, Whole Blood 302 mg/dL (60-115)
== END 2022-11-22 10:39 | disposition home or self-care (01) ==
PROVIDERS: PCP Internal Medicine; Referring Provider Internal Medicine; Visit Provider Internal Medicine Endocrinology, Diabetes & Metabolism
DX: E11.65 Type 2 diabetes mellitus with hyperglycemia (principal); Z79.4 Long term (current) use of insulin
CPT/HCPCS: 99214

== ENCOUNTER → 2022-11-22 10:04 | Outpatient (BNVA) | payer OTHER, SELFPAY | PROVIDERS: Visit Provider Internal Medicine Endocrinology, Diabetes & Metabolism | DX: Z46.81 Encounter for fitting and adjustment of insulin pump (principal); E11.65 Type 2 diabetes mellitus with hyperglycemia; Z79.4 Long term (current) use of insulin | CPT/HCPCS: 82947; 99212 ==

== ENCOUNTER 2022-11-25 10:42 | Outpatient (REF) | payer OTHER, SELFPAY ==
--- NOTE | ~2022-11-25 | US_ITS ---
EXAMINATION: US PELVIS CLINICAL INFORMATION: Irregular menstrual bleeding. COMPARISON: Pelvic ultrasound 11/02/2019. TECHNIQUE: Ultrasound of the pelvis is performed using both transabdominal and transvaginal transducers along with Doppler. Transvaginal imaging is performed due to inadequate visualization transabdominally. FINDINGS: Uterus: The uterus is retroverted and retroflexed and measures 8.3 x 5.1 x 5.4 cm. The double wall endometrial thickness is 10 mm. Previously seen fibroids are not visible on this study. The myometrium is diffusely heterogeneous in keeping with the patient's history of fibroid disease. Adnexa: The right ovary measures 2.6 x 0.9 x 1.8 cm, volume 2 mL. The left ovary measures 2.3 x 1.9 x 2.0 cm, volume 5 mL. US/US pelvic and transvaginal IMPRESSION: Heterogeneous uterus consistent with known fibroid disease. A discrete measurable fibroid is not seen on the current study. The endometrial stripe appears normal.
== END 2022-11-25 10:43 | disposition home or self-care (01) ==
LOC: HO.US 10:42
PROVIDERS: PCP Internal Medicine; Visit Provider Advanced Practice Midwife
DX: N95.1 Menopausal and female climacteric states (principal); Z87.42 Personal history of other diseases of the female genital tract
CPT/HCPCS: 76830; 76856

== ENCOUNTER 2022-11-28 08:22 | Outpatient (AMB) | payer OTHER, SELFPAY ==
--- NOTE | 2022-11-28 08:31 | AM.OFFVISNUR ---
Intake Intake Visit Reasons: flu shot Allergies adhesive tape [ADHESIVE TAPE] Allergy (Intermediate, Verified 11/22/22 10:12) RASH pioglitazone [From ACTOS] Allergy (Intermediate, Verified 11/22/22 10:12) facial edema,rash Office Procedures Flu Questionnaire Does the patient have a severe egg allergy?: No Does the patient have severe life threatening allergies?: No Does the patient have a fever or illness today?: No Has the patient ever had Guillain-[place] Syndrome?: No Has the patient ever had any past reaction to a flu shot?: No Immunizations flu vacc [id number] 6mos up(PF) 60 mcg(15 mcgx4)/0.5 mL IM syringe Performing Provider: Analilia Schumacher MD [facility] Administered by: LASHONDA Alexander on 11/28/22 08:31 Dose Route Admin Location Dispensed Lot Number Expiration Date NDC Sanitation Manager 0.5 mL IM Left Deltoid 0.5 mL [id number] 08/24/23 65414-753-72 [facility] VIS Given Date VIS Provided VIS Publication Date 11/28/22 Single Vaccine 20 Eligibility Eligibility Date Funding Source Not VF Eligible 11/28/22 Private Coding Assessment & Plan Assessment & Plan Orders: Orders Influenza [id number] Immunization Today Z23 - Encounter for immunization
== END 2022-11-28 10:14 | disposition home or self-care (01) ==
PROVIDERS: PCP Internal Medicine; Visit Provider Internal Medicine
DX: Z23 Encounter for immunization (principal)
CPT/HCPCS: 90471; 90686

== ENCOUNTER 2023-01-02 10:06 | Outpatient (AMB) | payer OTHER, SELFPAY ==
[2023-01-02 10:24] VITALS: BP 144/76; BMI 34.1
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
== END 2023-01-02 11:02 | disposition home or self-care (01) ==
LOC: HO.HWS 10:06
PROVIDERS: PCP Internal Medicine; Visit Provider Advanced Practice Midwife
DX: N95.1 Menopausal and female climacteric states (principal); Z87.42 Personal history of other diseases of the female genital tract; Z79.4 Long term (current) use of insulin; E11.65 Type 2 diabetes mellitus with hyperglycemia; Z12.4 Encounter for screening for malignant neoplasm of cervix; Z30.09 Encounter for other general counseling and advice on contraception
CPT/HCPCS: 99213

== ENCOUNTER → 2023-01-02 10:06 | Outpatient (BNVA) | payer OTHER, SELFPAY | PROVIDERS: PCP Internal Medicine; Visit Provider Advanced Practice Midwife | DX: Z30.09 Encounter for other general counseling and advice on contraception (principal); N95.1 Menopausal and female climacteric states; Z12.4 Encounter for screening for malignant neoplasm of cervix; E11.65 Type 2 diabetes mellitus with hyperglycemia; Z87.42 Personal history of other diseases of the female genital tract; Z79.4 Long term (current) use of insulin | CPT/HCPCS: 99212 ==

== ENCOUNTER 2023-01-21 07:47 | Outpatient (AMB) | payer OTHER, SELFPAY ==
--- NOTE | 2023-01-21 08:02 | A.OFFPC_ITS ---
Vital Signs 01/21/23 08:03 Height 5 ft 10 in Weight 225 lb BMI 32.3 BP 146/80 H Blood Pressure Location Lt brachial Position Sitting Intake Visit Reasons: ANNUAL Intake Note: Patient here for an annual physical exam Film Booker Required: No Accompanied by: Self / Same As Patient Allergies adhesive tape [ADHESIVE TAPE] Allergy (Intermediate, Verified 01/21/23 08:08) RASH pioglitazone [From ACTOS] Allergy (Intermediate, Verified 01/21/23 08:08) facial edema,rash latex Allergy (Mild, Verified 01/21/23 08:08) Rash Medication List - Last Reconciled 01/21/23 by Analilia Schumacher MD acetaminophen (Tylenol Extra Strength) 500 mg PO Q6H PRN albuterol sulfate 90 mcg/actuation 1 inh inhalation QID PRN albuterol sulfate 2.5 mg (3 mL) inhalation QID PRN 25 days artifi.tears(hypromellose)(PF) 0.3% 1 drp ophthalmic-Right Q4-6H PRN ascorbate calcium (vitamin C) 500 mg PO DAILY barium sulfate 2%(w/v) (Readi-Cat 2) 450 mL PO DIRECTED 1 day benzonatate 100 mg PO BID PRN 5 days blood sugar diagnostic (FreeStyle Lite Strips) TEST 4 TIMES DAILY blood-glucose meter (FreeStyle Lite Meter kit) TEST 4 TIMES DAILY buspirone 1 tab PO TID buspirone 15 mg PO TID canagliflozin (Invokana) 300 mg PO DAILY cane As directed cetirizine (Zyrtec) 10 mg PO DAILY 90 days cholecalciferol (vitamin D3) 50 mcg PO DAILY 30 days citalopram 1 tab PO DAILY citalopram 10 mg PO DAILY cyanocobalamin (vitamin B-12) 1,000 mcg PO DAILY cyclobenzaprine 5 mg PO Q8H PRN 5 days diclofenac sodium 75 mg PO BID docusate sodium 100 mg PO DAILY dulaglutide (Trulicity) 1.5 mg (0.5 mL) subcut QWEEK ferrous sulfate 325 mg PO DAILY fluconazole 150 mg PO Q3D 2 doses fluticasone propionate 50 mcg/actuation (Flonase Allergy Relief) 1 spray intranasal DAILY 30 days furosemide 20 mg PO BID 90 days gabapentin 100 mg PO TID 30 days hydrocortisone 2.5% (Proctozone-HC) 1 appl WI BID PRN hydrocortisone-pramoxine 1-1 % (Proctofoam HC) 1 appl WI BEDTIME hydroxyzine HCl 1 - 2 tabs PO QID ibuprofen 400 mg PO TID PRN insulin regular hum U-500 conc (Humulin R U-500 (Concentrated) Insulin) 210 units (0.42 mL) subcut DAILY 30 days insulin syringe-needle U-100 (Advocate Syringes) Use 1 needle once a month lidocaine 5% (Lidoderm) 1 patch topical DAILY PRN MDD remove after 12 hours lisinopril 10 mg PO DAILY methylcellulose (laxative) (Citrucel Sugar Free oral powder) 2 grams PO DAILY PRN montelukast 10 mg PO DAILY 90 days nebulizers (AeroEclipse II Nebulizer) As directed nortriptyline 10 mg PO BEDTIME ondansetron 4 mg PO Q6-8H PRN oxycodone-acetaminophen 5-325 mg 1 tab PO Q8H PRN 30 days pantoprazole 40 mg PO DAILY 30 days rosuvastatin 10 mg PO DAILY Shower Chair As directed simethicone (Gas Relief Extra Strength) 125 mg PO TID-QID PRN syringe with needle, safety (BD Safety-Jone Detachable Needle) Use 1 syringe once a month terbinafine HCl 250 mg PO DAILY 90 days thiamine HCl (vitamin B1) 1 tab PO DAILY tizanidine 4 mg PO Q8H PRN 30 days vitamin A 1 cap PO DAILY Tobacco use date assessed: 05/08/22 Dental Screening Dental Screen Date: 01/21/23 Did you have a dental visit in the last 12 months?: Yes Did you have a dental problem in the last 6 months where you did not have access to dental care?: No Was dental information given to patient?: Patient has dentist HPI HPI Comments History of Present Illness Details This is a 47-year-old female with diabetes mellitus type 2 on long-term current use of insulin that comes for her physical exam. A1c not on goal and this is follow by Endocrinology. Has been out of insulin for the last 2 days. I will change Trulicity to Ozempic. Diabetic eye exam was recently. Mammogram done February 2022 was normal. Pap smear done 2019 was normal. Colonoscopy was done 2020. No chest pain or shortness of breath. Complains of low back pain and follows with pain management. No fever, bowel or bladder incontinence. [facility] Medical History Physical exam Hyperlipidemia LDL goal <100 Cellulitis of toe of right foot Hospital discharge follow-up Goiter Onychomycosis Vitamin D deficiency T2DM (type 2 diabetes mellitus) Left ankle pain B12 deficiency Left leg pain Acid reflux History of colonic polyps Chronic fatigue Carpal tunnel syndrome Daytime hypersomnia Autoimmune thyroiditis Fibromyalgia Morbid obesity Spondylosis, thoracic, 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 spine without myelopathy History of ulcer disease Sessile colonic polyp Obesity 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 Diabetic nephropathy associated with type 2 diabetes mellitus Diabetic retinopathy associated with type 2 diabetes mellitus Diabetic polyneuropathy associated with type 2 diabetes mellitus Iron (Fe) deficiency anemia History of Graves' disease Lumbar degenerative disc disease Back pain Anxiety and depression GERD (gastroesophageal reflux disease) Asthma Hyperlipidemia Hypertension Diabetes mellitus Polyarthralgia Surgical History (Updated 01/21/23 @ 08:31 by Analilia Schumacher MD) History of carpal tunnel surgery of right wrist H/O endoscopy History of cataract extraction History of lumpectomy of left breast History of carpal tunnel surgery of left wrist Hx of section Hx laparoscopic cholecystectomy Hx of esophagogastroduodenoscopy Hx of colonoscopy H/O gastric bypass Family History Father Diabetes Hypertension Mother Diabetes Hypertension Maternal Grandmother Colon cancer Paternal Aunt Cancer of ear Household Members: Family Housing: House Alcohol intake: never Patient Tobacco Use Status: Former Tobacco user Quit Date: 2013 Tobacco use type: Cigarette Cigarette Packs Per Day: 1 Cigarettes Per Day: 20.0 Years Smoked: 20 e-Cigarette/Vaping Use: Never Used Second Hand Smoke Exposure: No service: No Current occupational status: disabled Current occupation: right hand dominant Cognitive needs: No Hearing needs: No Vision needs: Yes Female Reproductive History Menstrual Age of Menarche: 14 Questionnaire Thrive Questionnaire Date Thrive assessed: 05/08/22 MARCO-7 AMB Questionnaire MARCO-7 Date MARCO - 7 assessed: 05/08/22 Source: Developed by Drs. Parmjit Be, Yessi Gold, Ji Mahmood and colleagues, with an educational anni from [employer]. Review of Systems Const All systems reviewed & are unremarkable except as noted in HPI and below Eyes Reports no additional complaints, Denies change in vision and Denies other visual disturbances Card Denies chest pain at rest, Denies chest pain with activity, Denies edema, Denies irregular heart rhythm, Denies claudication, Denies dyspnea, Denies dyspnea on exertion, Denies orthopnea, Denies paroxysmal nocturnal dyspnea and Denies slow heart rate Resp Denies cough, Denies dyspnea and Denies dyspnea on exertion GI Denies abdominal pain, Denies change in bowel habits, Denies excessive flatus, Denies nausea and Denies vomiting Denies urinary incontinence, Denies urinary hesitancy and Denies urinary urgency Musc Denies abnormal gait, Reports back pain, Denies atrophy, Denies deformity and Denies limited range of motion Skin/Breast Denies bleeding lesions, Denies changing lesions and Denies rash Neuro Denies abnormal gait and Denies lack of coordination Physical exam (Primary Care) Vital Signs: Last Vital Signs BP 146/80 H 01/21/23 08:03 BMI result Body Mass Index 32.3 Tobacco/Smoking Status: Tobacco use Status Tobacco use date assessed 05/08/22 01/21/23 08:04 Patient Tobacco Use Status Former Tobacco user 01/21/23 08:04 Tobacco use type Cigarette 01/21/23 08:04 e-Cigarette/Vaping Use Never Used 01/21/23 08:04 Thrive Assessment: Date of Thrive Assessment Date Thrive assessed 05/08/22 01/21/23 08:04 Const Orientation/consciousness: patient oriented x3 HENMT Head: Yes normal to inspection, Yes normocephalic and Yes atraumatic Ears: external ears normal Eyes General: appearance normal, both eyes and all related structures Eyelids: Yes eyelids normal Conjunctivae: conjunctivae normal Neck Neck: Yes normal visual inspection and Yes supple Resp Effort & Inspection: normal respiratory effort Auscultation: clear to auscultation bilaterally Cardio Jugular venous distension: no JVD Rate: regular rate Rhythm: regular rhythm Heart sounds: S1 normal heart sound present and S2 normal heart sound present GI Inspection: Yes normal to inspection Palpation (GI): Soft to palpation and nontender Auscultation: normal bowel sounds Skin General skin exam: no rashes or lesions noted Neuro General: patient oriented x3 and no focal motor deficits Extrem General: Yes full ROM Psych Appearance: grossly normal Results AMB Hemoglobin A1c AMB Hemoglobin A1c 13.1 % Last Edit by LASHONDA Alexander on 01/21/23 08: 11 Results Reviewed Results Reviewed: Laboratory Last Values Hgb A1c (Clinic) 13.1 % (4.0-6.0) H 01/21/23 08:10 Assessment and Plan Assessment & Plan (1) Physical exam: Code(s): Z00.00 - Encounter for general adult medical examination without abnormal findings Plan: Repeat in a year. (2) Diabetes mellitus: Code(s): E11.9 - Type 2 diabetes mellitus without complications Qualifiers: Diabetes mellitus type: type 2 Diabetes mellitus intermodal customer service insulin use: with intermodal customer service use Diabetes mellitus complication status: with neurologic complications Diabetes mellitus complication detail: with polyneuropathy Qualified Code(s): E11.42 - Type 2 diabetes mellitus with diabetic polyneuropathy; Z79.4 - 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 Plan: Continue insulin pump. Continue Invokana. Follow-up with endocrinology. A1c goal is equal or less than 7% Orders: Orders AMB Hemoglobin A1c Today E11.9 - Type 2 diabetes mellitus without complications Vitamin B12 and Folate Today E53.8 - Deficiency of other specified B group vitamins Vitamin D 25-OH Total Today E55.9 - Vitamin D deficiency, unspecified Lipid Panel Today E78.5 - Hyperlipidemia, unspecified Complete Blood Count Auto Diff Today D64.9 - Anemia, unspecified Microalbumin, Random (w Creat) Today E11.9 - Type 2 diabetes mellitus without complications IRON PROFILE Today D64.9 - Anemia, unspecified Vitamin B1 Today E51.9 - Thiamine deficiency, unspecified Vitamin A Today E50.9 - Vitamin A deficiency, unspecified Comprehensive [place]. Panel Fast Today E11.65 - Type 2 diabetes mellitus with hyperglycemia, Z79.4 - long-term (current) use of insulin Medications: New 2 semaglutide for 4 weeks 0.25 mg (0.368 mL) subcut QWEEK 28 days 1.472 mL 0RF E11.9 - Type 2 diabetes mellitus without complications Refilled oxycodone-acetaminophen 5-325 mg 1 tab PO Q8H 30 days PRN 90 tabs 0RF pain E11.65 - Type 2 diabetes mellitus with hyperglycemia, Z79.4 - 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 Discontinued dulaglutide (Trulicity) Discontinued Reason: Patient Completed Course 1.5 mg (0.5 mL) subcut QWEEK 2.5 mL 5RF E11.42 - Type 2 diabetes mellitus with diabetic polyneuropathy Coding Level of Care Code Est Pt Prev Care 40-64y(36201) Diagnoses Physical exam Z00.00 Type 2 diabetes mellitus with diabetic polyneuropathy, with long-term current use of insulin E11.42; Z79.4 Diabetes mellitus type: type 2 Diabetes mellitus mcfp insulin use: with intermodal customer service use Diabetes mellitus complication status: with neurologic complications Diabetes mellitus complication detail: with polyneuropathy Time Spent (min) 35
[2023-01-21 08:03] VITALS: BP 146/80; BMI 32.3
== END 2023-01-21 08:39 | disposition home or self-care (01) ==
PROVIDERS: PCP Internal Medicine; Visit Provider Internal Medicine
DX: Z00.00 Encounter for general adult medical examination without abnormal findings (principal); E11.42 Type 2 diabetes mellitus with diabetic polyneuropathy; Z79.4 Long term (current) use of insulin
CPT/HCPCS: 83036; 99396

== ENCOUNTER 2023-01-21 12:38 | Outpatient (AMB) | payer OTHER, SELFPAY ==
--- NOTE | 2023-01-21 13:05 | MHC.AMDMED ---
Intake Intake Visit Reasons: [id number] Blade Grader Operator Required: Yes Blade Grader Operator Language: Derrick Follower Name: [id number] Allergies adhesive tape [ADHESIVE TAPE] Allergy (Intermediate, Verified 01/21/23 08:08) RASH pioglitazone [From ACTOS] Allergy (Intermediate, Verified 01/21/23 08:08) facial edema,rash latex Allergy (Mild, Verified 01/21/23 08:08) Rash HPI Comprehensive Diabetes Asmnt Most Recent Diabetes Results: No Data to Display [facility] Medical History Physical exam Hyperlipidemia LDL goal <100 Cellulitis of toe of right foot Hospital discharge follow-up Goiter Onychomycosis Vitamin D deficiency T2DM (type 2 diabetes mellitus) Left ankle pain B12 deficiency Left leg pain Acid reflux History of colonic polyps Chronic fatigue Carpal tunnel syndrome Daytime hypersomnia Autoimmune thyroiditis Fibromyalgia Morbid obesity Spondylosis, thoracic, 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 spine without myelopathy History of ulcer disease Sessile colonic polyp Obesity Tracee's disease 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 (current) use of insulin Diabetic nephropathy associated with type 2 diabetes mellitus Diabetic retinopathy associated with type 2 diabetes mellitus Diabetic polyneuropathy associated with type 2 diabetes mellitus Iron (Fe) deficiency anemia History of Graves' disease Lumbar degenerative disc disease Back pain Anxiety and depression GERD (gastroesophageal reflux disease) Asthma Hyperlipidemia Hypertension Diabetes mellitus Polyarthralgia Surgical History (Updated 01/21/23 @ 08:31 by Analilia Schumacher MD) History of carpal tunnel surgery of right wrist H/O endoscopy History of cataract extraction History of lumpectomy of left breast History of carpal tunnel surgery of left wrist Hx of section Hx laparoscopic cholecystectomy Hx of esophagogastroduodenoscopy Hx of colonoscopy H/O gastric bypass Family History Father Diabetes Hypertension Mother Diabetes Hypertension Maternal Grandmother Colon cancer Paternal Aunt Cancer of ear Social History Household Members: Family Housing: House Alcohol intake: never Patient Tobacco Use Status: Former Tobacco user Quit Date: 2013 Tobacco use type: Cigarette Cigarette Packs Per Day: 1 Cigarettes Per Day: 20.0 Years Smoked: 20 e-Cigarette/Vaping Use: Never Used Second Hand Smoke Exposure: No service: No Current occupational status: disabled Current occupation: right hand dominant Cognitive needs: No Hearing needs: No Vision needs: Yes Female Reproductive History Menstrual Age of Menarche: 14 Assessment & Plan Assessment & Plan (1) T2DM (type 2 diabetes mellitus): Code(s): E11.9 - Type 2 diabetes mellitus without complications Qualifiers: Diabetes mellitus care home insulin use: with local intermodal truck driver use Diabetes mellitus complication status: with hyperglycemia Qualified Code(s): E11.65 - Type 2 diabetes mellitus with hyperglycemia; Z79.4 - 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 (current) use of insulin Plan: Patient presents for pump training for? T slim with basal IQ and Dexcom G6 The following topics were reviewed today: Pt is out of T slim pump supplies and Dexcom transmitter. Patient is waiting on upgraded pump Patient given sample pump supplies and Dexcom transmitter to resume pump therapy until she received new pump Message sent to [employer] reps to begin upgrade for patient's T slim with basal IQ. - Sensor setting (if applicable) ?? High Alert: 180 mg/dl ??? Low Alert: 80 mg/dl Above target 100 % At target 0% Below target 0% Average glucose 350 mg/dL Insulin delivery settings Troubleshooting after starting new pod or inserting new insulin set: Occlusion, adhesive tape sensitivity, redness Check BG 2 hours after site change Safety information: Patient understands the basic concepts of pump therapy, how to give insulin for meals and snacks, how to troubleshoot for hyper and hypoglycemia. Setting verified by [facility] Basal rate(s) (units/hour) : 12 AM? to 5 AM? 0.6 units / hr 5 AM? to 12 PM? 0.7 units / hr 12 PM to 5 PM 0.725 units / hr 5 PM to 12 AM 0.8 units / hr? Bolus setting Insulin Carbohydrate Ratio (s) 12 AM? to 12 AM? 1:7 5PM to 12 AM 1:7.5 Correction Factor / Sensitivity Factor 12 AM? to 12 AM? 1:40 Active Insulin Time:? 4 hours Target(s): 12 AM? to 12 AM? 120 mg/dL Patient Instructions: Patient call when she receives new pump Coding Level of Care Code Est Pt Level 1 (93670) Diagnoses Type 2 diabetes mellitus with hyperglycemia, with long-term current use of insulin E11.65; Z79.4 Diabetes mellitus care home insulin use: with local intermodal truck driver use Diabetes mellitus complication status: with hyperglycemia Results AMB Hemoglobin A1c AMB Hemoglobin A1c 13.1 % Last Edit by LASHONDA Alexander on 01/21/23 08:11
== END 2023-01-21 14:05 | disposition home or self-care (01) ==
PROVIDERS: PCP Internal Medicine; Visit Provider Registered Nurse Diabetes Educator
DX: E11.65 Type 2 diabetes mellitus with hyperglycemia (principal); Z79.4 Long term (current) use of insulin

== ENCOUNTER → 2023-01-21 12:38 | Outpatient (BNVA) | payer OTHER, SELFPAY | PROVIDERS: PCP Internal Medicine; Visit Provider Registered Nurse Diabetes Educator | DX: E11.65 Type 2 diabetes mellitus with hyperglycemia (principal); E78.5 Hyperlipidemia, unspecified; Z79.4 Long term (current) use of insulin; Z96.41 Presence of insulin pump (external) (internal); Z46.81 Encounter for fitting and adjustment of insulin pump | CPT/HCPCS: 99211 ==

== ENCOUNTER 2023-01-22 06:37 | Outpatient (REF) | payer OTHER, SELFPAY ==
[2023-01-22 07:06] LABS: MANUAL DIFF FLAG NO
[2023-01-22 07:37] LABS: Basophils Percent Auto 0.3 % (0-2); Eosinophils Absolute Auto 0.1 X10*3/uL (0.0-0.4); Eosinophils Percent Auto 0.6 % (0-4); Hematocrit 38.4 % (37.0-47.0); Hemoglobin 12.2 g/dl (12.0-16.0); Imm Gran Abs Auto 0.05 X10*3/uL (0.00-0.03); Imm Gran Pct Auto 0.5 % (0.0-0.4); Lymphocytes Absolute Auto 1.4 X10*3/uL (1.2-4.9); Lymphocytes Percent Auto 13.7 % (20-40); Mean Corpuscular HGB Conc 31.8 g/dl (31.0-35.0); Mean Corpuscular Hemoglobin 23.7 pg (27.0-33.0); Mean Corpuscular Volume 74.7 fL (80.0-98.0); Monocytes Absolute Auto 0.7 X10*3/uL (0.1-1.2); Monocytes Percent Auto 6.3 % (2-11); Neutrophils Absolute Auto 8.1 x10*3/uL (2.0-8.3); Neutrophils Percent Auto 78.6 % (45-73); Platelet Count 264 X10*3/uL (160-400); Red Blood Count 5.14 X10*6/uL (4.20-5.50); Red Cell Distribution Width 14.6 % (11.0-16.0); White Blood Count 10.3 X10*3/uL (4.8-10.8)
[2023-01-22 07:42] LABS: Estimated Average Glucose 283 mg/dL; Hemoglobin A1c % 11.5 % (<6.0)
[2023-01-22 08:12] LABS: Creatinine Urine 74.78 mg/dL; Microalbum/Creatinine Ratio Ur 159.1 ug/mg cr (<30)
[2023-01-22 08:22] LABS: Alanine Aminotransferase 14 U/L (0-31); Albumin Level 4.3 g/dL (3.5-5.0); Alkaline Phosphatase 123 U/L (39-117); Anion Gap 16 (12-20); Aspartate Amino Transferase 13 U/L (5-31); Bilirubin Total 0.5 mg/dL (0.0-1.0); Blood Urea Nitrogen 10 mg/dL (9-16); Calcium 9.5 mg/dL (8.4-10.2); Carbon Dioxide 21 mmol/L (22-29); Chloride 97 mmol/L (96-108); Cholesterol 186 mg/dL (<200); Estimated Glomerular Filt Rate > 60; Glucose Fasting 319 mg/dL (60-99); HDL Cholesterol 64 mg/dL (>40); Iron 62 mcg/dL (30-160); LDL Cholesterol Calculated 96 mg/dL (<100); Percent Iron Saturation 15 % (15-50); Sodium 130 mmol/L (135-145); Total Iron Binding Capacity 401 mcg/dL (228-428); Total Protein 8.5 g/dL (6.5-8.0); Triglycerides 133 mg/dL (<150); Unsaturated Iron Binding 339 ug/dL
[2023-01-22 08:31] LABS: Vitamin D 25-OH Total 17.5 ng/mL (>30)
[2023-01-22 08:33] LABS: Ferritin 10 ng/mL (10-250); Thyroid Stimulating Hormone 2.14 uIU/mL (0.32-4.0)
[2023-01-22 08:44] LABS: Folate 13.9 ng/mL (> or = 4.0); Vitamin B12 225 pg/mL (200-900)
[2023-01-23 05:54] LABS: Follicle Stimulating Hormone 5.2 mIU/mL
[2023-01-25 22:24] LABS: Vitamin A 27 mcg/dL (38-98)
[2023-01-26 12:18] LABS: Vitamin B1 6 nmol/L (8-30)
== END 2023-01-22 06:38 | disposition home or self-care (01) ==
LOC: HO.LAB 06:37
PROVIDERS: Internal Medicine; Physician Assistant; Absent Provider Internal Medicine; PCP Internal Medicine; Visit Provider Advanced Practice Midwife
DX: D64.9 Anemia, unspecified (principal); E11.65 Type 2 diabetes mellitus with hyperglycemia; E53.8 Deficiency of other specified B group vitamins; E55.9 Vitamin D deficiency, unspecified; E51.9 Thiamine deficiency, unspecified; E50.9 Vitamin A deficiency, unspecified; E78.5 Hyperlipidemia, unspecified; I10 Essential (primary) hypertension; Z79.4 Long term (current) use of insulin; Z87.42 Personal history of other diseases of the female genital tract
CPT/HCPCS: 36415; 80053; 80061; 82043; 82306; 82570; 82607; 82728; 82746; 83001; 83036; 83540; 84425; 84443; 84590; 85025

== ENCOUNTER 2023-01-22 10:21 | Emergency (ER) | payer OTHER, SELFPAY ==
--- NOTE | 2023-01-22 10:26 | ECG_ITS ---
Test Reason : CP Blood Pressure : / mmHG Vent. Rate : 084 BPM Atrial Rate : 084 BPM P-R Int : 150 ms QRS Dur : 082 ms QT Int : 366 ms P-R-T Axes : 034 060 051 degrees QTc Int : 432 ms Normal sinus rhythm Normal ECG When compared with ECG of 04-MAR-2021 08:02, No significant change was found Referred By: Generic ED Physician Electronically Signed By:MICKEY LEWIS MD
[2023-01-22 10:34] VITALS: BP 151/65; PULSE 89; RESP 19; TEMP 36.6; O2SAT 98; BMI 32.9
[2023-01-22 11:44] LABS: MANUAL DIFF FLAG NO
[2023-01-22 11:46] LABS: Basophils Percent Auto 0.2 % (0-2); Eosinophils Percent Auto 0.3 % (0-4); Hematocrit 38.1 % (37.0-47.0); Hemoglobin 12.3 g/dl (12.0-16.0); Imm Gran Abs Auto 0.05 X10*3/uL (0.00-0.03); Imm Gran Pct Auto 0.4 % (0.0-0.4); Lymphocytes Absolute Auto 1.2 X10*3/uL (1.2-4.9); Lymphocytes Percent Auto 10.5 % (20-40); Mean Corpuscular HGB Conc 32.3 g/dl (31.0-35.0); Mean Corpuscular Hemoglobin 24.2 pg (27.0-33.0); Mean Corpuscular Volume 74.9 fL (80.0-98.0); Mean Platelet Volume 9.5 fL (9.4-12.3); Monocytes Absolute Auto 0.6 X10*3/uL (0.1-1.2); Monocytes Percent Auto 5.1 % (2-11); Neutrophils Absolute Auto 9.8 x10*3/uL (2.0-8.3); Neutrophils Percent Auto 83.5 % (45-73); Platelet Count 339 X10*3/uL (160-400); Red Blood Count 5.09 X10*6/uL (4.20-5.50); Red Cell Distribution Width 14.4 % (11.0-16.0); White Blood Count 11.7 X10*3/uL (4.8-10.8)
[2023-01-22 12:06] LABS: Alanine Aminotransferase 14 U/L (0-31); Albumin Level 4.3 g/dL (3.5-5.0); Alkaline Phosphatase 124 U/L (39-117); Anion Gap 15 (12-20); Aspartate Amino Transferase 11 U/L (5-31); Bilirubin Direct 0.2 mg/dL (0.0-0.5); Bilirubin Total 0.5 mg/dL (0.0-1.0); Blood Urea Nitrogen 11 mg/dL (9-16); Calcium 10.1 mg/dL (8.4-10.2); Carbon Dioxide 21 mmol/L (22-29); Chloride 99 mmol/L (96-108); Estimated Glomerular Filt Rate > 60; Glucose Random 372 mg/dL (60-115); Lipase 28 U/L (8-78); Potassium 4.7 mmol/L (3.3-5.1); Sodium 130 mmol/L (135-145); Total Protein 8.5 g/dL (6.5-8.0)
[2023-01-22 12:18] LABS: Troponin-I High Sensitivity < 2.7 ng/L (<3.5-17.0)
[2023-01-22 17:28] LABS: Influenza A PCR NEGATIVE (Negative); Influenza B PCR NEGATIVE (Negative); Resp Syncy Virus RNA Qual PCR NEGATIVE (Negative); SARS COV2 PCR INHOUSE NEGATIVE (Negative)
--- NOTE | 2023-01-22 17:47 | ED.GENADULT ---
HPI - General Adult General Chief complaint: Abdominal Pain Stated complaint: Chest pain, weakness, back pain Time Seen by Provider: 01/22/23 17:18 History of Present Illness HPI narrative: The patient is a 47-year-old woman with a history of type 2 diabetes. She also has a history of gastric bypass surgery and history of cholecystectomy. A gastric bypass surgery and cholecystectomy were 7 years ago. Patient says she has not felt well for the last couple of weeks. She has had mid back pain and nausea. She says her back pain is worse if she stands for a long time. She feels that the pain is in the middle of her mid back. The pain does not lateralize. She has had no definite fever. She has had no diarrhea. She has had no vomiting despite her nausea. Patient saw her primary care provider about these symptoms yesterday and she had outpatient labs this morning because of that visit. She then checked into the emergency room because the symptoms today. Related Data Home Medications Medication Instructions Recorded Confirmed artifi.tears(hypromellose)(PF) 0.3 1 drp ophthalmic-Right Q4-6H PRN 12/10/19 01/21/23 % eye drops Dry Eyes diclofenac sodium 75 mg 75 mg PO BID 12/10/19 01/21/23 tablet,delayed release docusate sodium 100 mg capsule 100 mg PO DAILY 12/10/19 01/21/23 nortriptyline 10 mg capsule 10 mg PO BEDTIME 12/10/19 01/21/23 buspirone 10 mg tablet 1 tab PO TID 12/31/19 01/21/23 citalopram 20 mg tablet 1 tab PO DAILY 12/31/19 01/21/23 hydroxyzine HCl 25 mg tablet 1 - 2 tab PO QID 12/31/19 01/21/23 thiamine HCl (vitamin B1) 100 mg 1 tab PO DAILY 12/31/19 01/21/23 tablet vitamin A 3,000 mcg (10,000 unit) 1 cap PO DAILY 12/31/19 01/21/23 capsule citalopram 10 mg tablet 10 mg PO DAILY 08/28/22 01/21/23 buspirone 15 mg tablet 15 mg PO TID 01/02/23 01/21/23 Previous Rx's Medication Instructions Recorded cane #1 ea 07/31/20 blood-glucose meter (FreeStyle #1 ea 09/05/20 Lite Meter kit) syringe with needle, safety 3 mL #1 ea 01/25/21 25 gauge x 5/8 (BD Safety-Jone Detachable Needle) albuterol sulfate 90 mcg/actuation 1 inh inhalation QID PRN shortness 03/04/21 aerosol inhaler of breath or wheezing #8.5 grams nebulizers (AeroEclipse II #1 ea 03/04/21 Nebulizer) terbinafine HCl 250 mg tablet 250 mg PO DAILY 90 days #90 tabs 09/24/21 Shower Chair #1 ea 12/28/21 methylcellulose (laxative) 2 g PO DAILY PRN constipation #479 12/31/21 (Citrucel Sugar Free oral powder) grams fluticasone propionate 50 1 spray intranasal DAILY 30 days 02/25/22 mcg/actuation nasal #16 grams spray,suspension (Flonase Allergy Relief) albuterol sulfate 2.5 mg/3 mL 2.5 mg (3 mL) inhalation QID PRN 03/07/22 (0.083 %) solution for nebulization shortness of breath or wheezing 25 days #180 mL fluconazole 150 mg tablet 150 mg PO Q3D 2 doses #2 tabs 03/27/22 cholecalciferol (vitamin D3) 50 50 mcg PO DAILY 30 days #30 caps 04/17/22 mcg (2,000 unit) capsule hydrocortisone 2.5 % topical cream 1 appl MA BID PRN hemorrhoids #30 04/22/22 with perineal applicator grams (Proctozone-HC) pantoprazole 40 mg tablet,delayed 40 mg PO DAILY 30 days #30 tabs 04/22/22 release tizanidine 4 mg tablet 4 mg PO Q8H PRN muscle spasticity 05/08/22 30 days #90 tabs ibuprofen 400 mg tablet 400 mg PO TID PRN fever or pain 05/31/22 #30 tabs ondansetron 4 mg disintegrating 4 mg PO Q6-8H PRN nausea and 05/31/22 tablet vomiting #14 tabs insulin syringe-needle U-100 1 mL #1 ea 06/11/22 31 gauge x 5/16 (Advocate Syringes) ascorbate calcium (vitamin C) 500 500 mg PO DAILY #60 tabs 06/14/22 mg tablet ferrous sulfate 325 mg (65 mg 325 mg PO DAILY #60 tabs 06/14/22 iron) tablet acetaminophen 500 mg tablet 500 mg PO Q6H PRN fever or pain 06/26/22 (Tylenol Extra Strength) #14 tabs cyclobenzaprine 5 mg tablet 5 mg PO Q8H PRN pain (scale score 06/26/22 7-10) 5 days #14 tabs blood sugar diagnostic (FreeStyle #100 ea 07/01/22 Lite Strips) cetirizine 10 mg capsule (Zyrtec) 10 mg PO DAILY 90 days #90 caps 07/01/22 benzonatate 100 mg capsule 100 mg PO BID PRN cough 5 days #10 08/20/22 caps hydrocortisone 1 %-pramoxine 1 % 1 appl MA BEDTIME #10 grams 08/20/22 rectal foam (Proctofoam HC) barium sulfate 2 % (w/v) oral 450 ml PO DIRECTED 1 day #900 mL 08/28/22 suspension (Readi-Cat 2) simethicone 125 mg chewable tablet 125 mg PO TID-QID PRN for 09/26/22 (Gas Relief Extra Strength) abdominal pain #90 tabs furosemide 20 mg tablet 20 mg PO BID 90 days #180 tabs 09/27/22 canagliflozin 300 mg tablet 300 mg PO DAILY #30 tabs 11/06/22 (Invokana) rosuvastatin 10 mg tablet 10 mg PO DAILY #90 tabs 11/29/22 lisinopril 10 mg tablet 10 mg PO DAILY #90 tabs 12/23/22 montelukast 10 mg tablet 10 mg PO DAILY 90 days #90 tabs 12/24/22 oxycodone-acetaminophen 5 mg-325 1 tab PO Q8H PRN pain 30 days #90 01/21/23 mg tablet tabs semaglutide 0.25 mg or 0.5 mg (2 0.25 mg (0.368 mL) subcut QWEEK 28 01/21/23 mg/3 mL) subcutaneous pen injector days #1.472 mL cyanocobalamin (vitamin B-12) 1,000 mcg PO DAILY #90 caps 01/22/23 1,000 mcg capsule cyclobenzaprine 10 mg tablet 10 mg PO TID PRN back pain #14 tabs 01/22/23 gabapentin 100 mg capsule 100 mg PO TID 30 days #90 caps 01/22/23 lidocaine 5 % topical patch 1 patch topical DAILY PRN pain #30 01/22/23 (Lidoderm) ea prochlorperazine maleate 10 mg 10 mg PO TID PRN nausea #10 tabs 01/22/23 tablet Allergies Allergy/AdvReac Type Severity Reaction Status Date / Time adhesive tape [ADHESIVE TAPE] Allergy Intermediate RASH Verified 01/22/23 10:33 pioglitazone [From ACTOS] Allergy Intermediate facial Verified 01/22/23 10:33 edema,rash latex Allergy Mild Rash Verified 01/22/23 10:33 Review of Systems Review of Systems: Yes all other systems are reviewed and are negative [facility] Past Medical History Medical History (Updated 01/22/23 @ 17:49 by Ander Davis MD) Physical exam Hyperlipidemia LDL goal <100 Cellulitis of toe of right foot Hospital discharge follow-up Goiter Onychomycosis Vitamin D deficiency T2DM (type 2 diabetes mellitus) Left ankle pain B12 deficiency Left leg pain Acid reflux History of colonic polyps Chronic fatigue Carpal tunnel syndrome Daytime hypersomnia Autoimmune thyroiditis Fibromyalgia Morbid obesity Spondylosis, thoracic, 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 spine without myelopathy History of ulcer disease Sessile colonic polyp Obesity 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's 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 Diabetic nephropathy associated with type 2 diabetes mellitus Diabetic retinopathy associated with type 2 diabetes mellitus Diabetic polyneuropathy associated with type 2 diabetes mellitus Iron (Fe) deficiency anemia History of Graves' disease Lumbar degenerative disc disease Back pain Anxiety and depression GERD (gastroesophageal reflux disease) Asthma Hyperlipidemia Hypertension Diabetes mellitus Polyarthralgia Surgical History (Updated 01/21/23 @ 08:31 by Analilia Schumacher MD) History of carpal tunnel surgery of right wrist H/O endoscopy History of cataract extraction History of lumpectomy of left breast History of carpal tunnel surgery of left wrist Hx of section Hx laparoscopic cholecystectomy Hx of esophagogastroduodenoscopy Hx of colonoscopy H/O gastric bypass Family History Family History Father Diabetes Hypertension Mother Diabetes Hypertension Maternal Grandmother Colon cancer Paternal Aunt Cancer of ear Social History Social History Household Members: Family Housing: House Alcohol intake: never Patient Tobacco Use Status: Former Tobacco user Quit Date: 2013 Tobacco use type: Cigarette Cigarette Packs Per Day: 1 Cigarettes Per Day: 20.0 Years Smoked: 20 Smoked in Last 30 Days: No e-Cigarette/Vaping Use: Never Used Second Hand Smoke Exposure: No Use of substances other than those prescribed or required for medical reasons: No Advance Directives: No service: No Current occupational status: disabled Current occupation: right hand dominant Cognitive needs: No Hearing needs: No Vision needs: Yes Physical Exam ED Vital Signs: Vital Signs - 24 hr 01/22/23 10:34 01/22/23 18:19 Temperature 98 F Pulse Rate 89 88 Respiratory Rate 19 18 Blood Pressure 151/65 H 147/80 H Pulse Oximetry 98 98 Oxygen Delivery Method Room Air Room Air BMI result Body Mass Index 32.9 Const Other: The patient is awake and alert. She does not appear acutely ill. No respiratory distress. She did not appear uncomfortable. HENMT Other: Face is symmetrical. Eyes Other: Pupils are round equal, conjunctivae are clear Neck Other: No cervical adenopathy Resp Other: Lungs are clear bilaterally Cardio Other: The patient has a regular rate and rhythm with no murmur GI Other: The abdomen is soft and nontender. Back/Spine/Pelvis Other: There is some paraspinous tenderness in the muscles of the mid back near the thoracolumbar junction. Skin Other: Skin is dry and unremarkable. Neuro Other: Patient is awake, alert, oriented, appropriate. Speech is clear. Face is symmetrical. Moves all 4 extremities symmetrically. Extrem Other: No calf swelling or tenderness. No peripheral edema. Medications Administered Discontinued Medications Generic Name Dose Route Start Last Admin Trade Name Terri PRN Reason Stop Dose Admin Ketorolac Tromethamine 30 mg 01/22/23 17:46 01/22/23 18:18 Ketorolac Tromethamine 30 Mg/Ml Vial IM 01/22/23 17:47 30 mg ONCE ONE Administration Medical Decision Making Medical Decision Making [facility] Narrative: Patient is a 47-year-old woman who says that she has a history of fibromyalgia and arthritis who is here with a complaint of midback pain and nausea going on for few weeks. She does not appear toxic or on well. Her oxygen saturations on room air were normal. She was not tachycardic. Her abdomen is entirely benign. EKG is normal. She was seen at her PCPs office yesterday with the same complaints. My concern for any acutely dangerous process is quite low. My overall impression is that the likelihood of any acutely dangerous process is very low. She will be prescribed cyclobenzaprine for her back pain and prochlorperazine for her nausea. She should follow up soon with her regular doctor or return to the emergency room if worse. Lab Data 01/22/23 11:39 01/22/23 11:39 Labs: Lab Results 01/22/23 01/22/23 Range/Units 11:39 16:45 WBC 11.7 H (4.8-10.8) X10*3/uL RBC 5.09 (4.20-5.50) X10*6/uL Hgb 12.3 (12.0-16.0) g/dl Hct 38.1 (37.0-47.0) % MCV 74.9 L (80.0-98.0) fL MCH 24.2 L (27.0-33.0) pg MCHC 32.3 (31.0-35.0) g/dl RDW 14.4 (11.0-16.0) % Plt Count 339 D (160-400) X10*3/uL MPV 9.5 (9.4-12.3) fL Immature Gran % (Auto) 0.4 (0.0-0.4) % Neut % (Auto) 83.5 H (45-73) % Lymph % (Auto) 10.5 L (20-40) % Hunt % (Auto) 5.1 (2-11) % Eos % (Auto) 0.3 (0-4) % Baso % (Auto) 0.2 (0-2) % Lymph # (Auto) 1.2 (1.2-4.9) X10*3/uL Hunt # (Auto) 0.6 (0.1-1.2) X10*3/uL Eos # (Auto) 0.0 (0.0-0.4) X10*3/uL Baso # (Auto) 0.0 (0.0-0.2) X10*3/uL Abs Immat Gran (auto) 0.05 H (0.00-0.03) X10*3/uL Absolute Neuts (auto) 9.8 H (2.0-8.3) x10*3/uL Absolute Nucleated RBC 0.000 (0.0-0.012) X10*3/uL Nucleated RBC % (auto) 0.0 (0.0-0.2) /100WBC Sodium 130 L (135-145) mmol/L Potassium 4.7 (3.3-5.1) mmol/L Chloride 99 (96-108) mmol/L Carbon Dioxide 21 L (22-29) mmol/L Anion Gap 15 (12-20) BUN 11 (9-16) mg/dL Creatinine 0.78 (0.5-1.4) mg/dL Estim Creat Clear Calc 114.0 Estimated GFR > 60 Random Glucose 372 H* (60-115) mg/dL Calcium 10.1 D (8.4-10.2) mg/dL Total Bilirubin 0.5 (0.0-1.0) mg/dL Direct Bilirubin 0.2 (0.0-0.5) mg/dL AST 11 (5-31) U/L ALT 14 (0-31) U/L Alkaline Phosphatase 124 H (39-117) U/L Troponin I High Sens < 2.7 (<3.5-17.0) ng/L C-Reactive Protein 3.64 H (< or = 0.50) mg/dL Total Protein 8.5 H (6.5-8.0) g/dL Albumin 4.3 (3.5-5.0) g/dL Lipase 28 (8-78) U/L Influenza Type A (PCR) NEGATIVE (Negative) Influenza Type B (PCR) NEGATIVE (Negative) RSV RNA Qual (PCR) NEGATIVE (Negative) SARS-CoV-2 RNA (RT-PCR) NEGATIVE (Negative) Independent Interpretation I performed an independent interpretation of an: EKG Interpretation: EKG shows normal sinus rhythm at 84 beats per minute. This is normal EKG. No ischemic changes. Radiology Impression Radiologist Impression: EKG shows normal sinus rhythm at 84 beats per minute. No ischemic changes. Normal EKG. Discharge Plan Discharge Clinical Impression: Back pain, Nausea Patient Disposition: Home, Self-Care Additional Instructions: Your testing in the emergency room today seems reassuring. I do not think any acutely dangerous process is at work. For your back pain you should take 2 extra-strength acetaminophen (Tylenol) every 6-8 hours. You may also take the cyclobenzaprine prescribed today. This medication is a muscle relaxant. You should not drive when you have taken this medication. For your nausea I have sent a prescription called prochlorperazine. You may use this up to 3 times a day as needed for nausea. Please make another appointment with your primary care doctor to discuss these symptoms further. Return to the emergency room significantly worse. Prescriptions: New cyclobenzaprine 10 mg tablet 10 mg PO TID PRN (Reason: back pain) Qty: 14 0RF prochlorperazine maleate 10 mg tablet 10 mg PO TID PRN (Reason: nausea) Qty: 10 0RF No Action (DME) cane Device See Rx Instructions .ROUTE .MEDSUPPLY Qty: 1 0RF Rx Instructions: As directed (DME) blood-glucose meter [FreeStyle Lite Meter] Kit See Rx Instructions .ROUTE .MEDSUPPLY Qty: 1 0RF Rx Instructions: TEST 4 TIMES DAILY (DME) BD Safety-Jone Detachable Needl 3 mL 25 gauge x 5/8 syringe See Rx Instructions .ROUTE .MEDSUPPLY Qty: 1 6RF Rx Instructions: Use 1 syringe once a month terbinafine HCl 250 mg tablet 250 mg PO DAILY 90 Days Qty: 90 0RF (DME) Shower Chair Misc See Rx Instructions .Route Qty: 1 0RF Rx Instructions: As directed fluticasone propionate [Flonase Allergy Relief] 50 mcg/actuation spray,suspension 1 spray intranasal DAILY 30 Days Qty: 16 1RF Rx Instructions: administer into each nostril albuterol sulfate 2.5 mg /3 mL (0.083 %) solution for nebulization 2.5 mg inhalation QID PRN (Reason: shortness of breath or wheezing) 25 Days Qty: 180 0RF fluconazole 150 mg tablet 150 mg PO Q3D Qty: 2 0RF cholecalciferol (vitamin D3) 50 mcg (2,000 unit) capsule 50 mcg PO DAILY 30 Days Qty: 30 11RF tizanidine 4 mg tablet 4 mg PO Q8H PRN (Reason: muscle spasticity) 30 Days Qty: 90 8RF (DME) insulin syringe-needle U-100 [Advocate Syringes] 1 mL 31 gauge x 5/16 syringe See Rx Instructions .Route Qty: 1 2RF Rx Instructions: Use 1 needle once a month ferrous sulfate 325 mg (65 mg iron) tablet 325 mg PO DAILY Qty: 60 0RF ascorbate calcium (vitamin C) 500 mg tablet 500 mg PO DAILY Qty: 60 0RF (DME) FreeStyle Lite Strips Strip See Rx Instructions .ROUTE .MEDSUPPLY Qty: 100 8RF Rx Instructions: TEST 4 TIMES DAILY Zyrtec 10 mg capsule 10 mg PO DAILY 90 Days Qty: 90 3RF benzonatate 100 mg capsule 100 mg PO BID PRN (Reason: cough) 5 Days Qty: 10 0RF Proctofoam HC 1-1 % foam 1 appl MA BEDTIME Qty: 10 3RF simethicone [Gas Relief Extra Strength] 125 mg tablet,chewable 125 mg PO TID-QID PRN (Reason: for abdominal pain) Qty: 90 2RF furosemide 20 mg tablet 20 mg PO BID 90 Days Qty: 180 1RF Invokana 300 mg tablet 300 mg PO DAILY Qty: 30 11RF rosuvastatin 10 mg tablet 10 mg PO DAILY Qty: 90 1RF lisinopril 10 mg tablet 10 mg PO DAILY Qty: 90 4RF montelukast 10 mg tablet 10 mg PO DAILY 90 Days Qty: 90 3RF cyanocobalamin (vitamin B-12) 1,000 mcg capsule 1,000 mcg PO DAILY Qty: 90 3RF gabapentin 100 mg capsule 100 mg PO TID 30 Days Qty: 90 1RF lidocaine [Lidoderm] 5 % adhesive patch,medicated 1 patch topical DAILY MDD remove after 12 hours PRN (Reason: pain) Qty: 30 0RF Rx Instructions: leave on most painful area for up to 12 hrs citalopram 20 mg tablet 1 tab PO DAILY buspirone 10 mg tablet 1 tab PO TID thiamine HCl (vitamin B1) 100 mg tablet 1 tab PO DAILY vitamin A 10,000 unit capsule 1 cap PO DAILY hydroxyzine HCl 25 mg tablet 1 - 2 tab PO QID albuterol sulfate 90 mcg/actuation HFA aerosol inhaler 1 inh inhalation QID PRN (Reason: shortness of breath or wheezing) Qty: 8.5 0RF (DME) AeroEclipse II Nebulizer Misc See Rx Instructions .ROUTE .MEDSUPPLY Qty: 1 0RF Rx Instructions: As directed ibuprofen 400 mg tablet 400 mg PO TID PRN (Reason: fever or pain) Qty: 30 0RF ondansetron 4 mg tablet,disintegrating 4 mg PO Q6-8H PRN (Reason: nausea and vomiting) Qty: 14 0RF acetaminophen [Tylenol Extra Strength] 500 mg tablet 500 mg PO Q6H PRN (Reason: fever or pain) Qty: 14 0RF cyclobenzaprine 5 mg tablet 5 mg PO Q8H PRN (Reason: pain (scale score 7-10)) 5 Days Qty: 14 0RF semaglutide 0.25 mg or 0.5 mg (2 mg/3 mL) pen injector 0.25 mg subcut QWEEK 28 Days Qty: 1.472 0RF Rx Instructions: for 4 weeks oxycodone-acetaminophen 5-325 mg tablet 1 tab PO Q8H PRN (Reason: pain) 30 Days Qty: 90 0RF diclofenac sodium 75 mg tablet,delayed release (DR/EC) 75 mg PO BID artifi.tears(hypromellose)(PF) 0.3 % drops 1 drp ophthalmic-Right Q4-6H PRN (Reason: Dry Eyes) nortriptyline 10 mg capsule 10 mg PO BEDTIME docusate sodium 100 mg capsule 100 mg PO DAILY Citrucel Sugar Free Powder 2 g PO DAILY PRN (Reason: constipation) Qty: 479 2RF hydrocortisone [Proctozone-HC] 2.5 % cream with perineal applicator 1 appl MA BID PRN (Reason: hemorrhoids) Qty: 30 3RF Rx Instructions: apply MA BID prn pantoprazole 40 mg tablet,delayed release (DR/EC) 40 mg PO DAILY 30 Days Qty: 30 11RF buspirone 15 mg tablet 15 mg PO TID citalopram 10 mg tablet 10 mg PO DAILY Readi-Cat 2 2 % (w/v) suspension 450 ml PO DIRECTED 1 Days Qty: 900 0RF Referrals: Analilia Chaidez MD [Primary Care Provider] - (Please follow-up with your regular doctor) Interventions: ED Discharge Assessment Last Done: 01/22/23 18:20 Discharge Date/Time: 01/22/23 18:20
[2023-01-22 18:06] LABS: C Reactive Protein 3.64 mg/dL (< or = 0.50)
[2023-01-22] MEDS: Ketorolac Tromethamine 30 MG/ML VIAL IM (18:18)
[2023-01-22 18:19] VITALS: BP 147/80; PULSE 88; RESP 18; O2SAT 98
== END 2023-01-22 18:20 | disposition home or self-care (01) ==
PROVIDERS: Physician Assistant Medical; Emergency Provider Emergency Medicine; PCP Internal Medicine
DX: M54.50 Low back pain, unspecified (principal); R07.89 Other chest pain; R53.1 Weakness; R11.2 Nausea with vomiting, unspecified; Z11.52 Encounter for screening for COVID-19; Z20.822 Contact with and (suspected) exposure to COVID-19; Z79.899 Other long term (current) drug therapy; Z87.891 Personal history of nicotine dependence
CPT/HCPCS: 0241U; 36415; 80048; 80076; 83690; 84484; 85025; 86140; 93005; 96372; 99284; J1885

== ENCOUNTER 2023-02-06 16:51 | Outpatient (AMB) | payer OTHER, SELFPAY ==
[2023-02-06 17:01] VITALS: BP 146/80; BMI 32.6
--- NOTE | 2023-02-06 17:01 | A.OFFPC_ITS ---
Vital Signs 02/06/23 17:01 Height 5 ft 9 in Weight 221 lb BMI 32.6 BP 146/80 H Blood Pressure Location Lt brachial Position Sitting Intake Visit Reasons: 4 month follow up dm Intake Note: Patient here for a 4 month follow up DM Principal Solutions Architect Required: No Accompanied by: Self / Same As Patient Allergies adhesive tape [ADHESIVE TAPE] Allergy (Intermediate, Verified 02/06/23 17:14) RASH pioglitazone [From ACTOS] Allergy (Intermediate, Verified 02/06/23 17:14) facial edema,rash latex Allergy (Mild, Verified 02/06/23 17:14) Rash Medication List - Last Reconciled 02/06/23 by Analilia Schumacher MD acetaminophen (Tylenol Extra Strength) 500 mg PO Q6H PRN albuterol sulfate 90 mcg/actuation 1 inh inhalation QID PRN albuterol sulfate 2.5 mg (3 mL) inhalation QID PRN 25 days artifi.tears(hypromellose)(PF) 0.3% 1 drp ophthalmic-Right Q4-6H PRN ascorbate calcium (vitamin C) 500 mg PO DAILY barium sulfate 2%(w/v) (Readi-Cat 2) 450 mL PO DIRECTED 1 day benzonatate 100 mg PO BID PRN 5 days blood sugar diagnostic (FreeStyle Lite Strips) TEST 4 TIMES DAILY blood-glucose meter (FreeStyle Lite Meter kit) TEST 4 TIMES DAILY buspirone 1 tab PO TID buspirone 15 mg PO TID canagliflozin (Invokana) 300 mg PO DAILY cane As directed cetirizine (Zyrtec) 10 mg PO DAILY 90 days cholecalciferol (vitamin D3) 50 mcg PO DAILY 30 days citalopram 1 tab PO DAILY citalopram 10 mg PO DAILY cyanocobalamin (vitamin B-12) 1,000 mcg PO DAILY cyclobenzaprine 5 mg PO Q8H PRN 5 days cyclobenzaprine 10 mg PO TID PRN diclofenac sodium 75 mg PO BID docusate sodium 100 mg PO DAILY ferrous sulfate 325 mg PO DAILY fluconazole 150 mg PO Q3D 2 doses fluticasone propionate 50 mcg/actuation (Flonase Allergy Relief) 1 spray intranasal DAILY 30 days furosemide 20 mg PO BID 90 days gabapentin 100 mg PO TID 30 days hydrocortisone 2.5% (Proctozone-HC) 1 appl ID BID PRN hydrocortisone-pramoxine 1-1 % (Proctofoam HC) 1 appl ID BEDTIME hydroxyzine HCl 1 - 2 tabs PO QID ibuprofen 400 mg PO TID PRN insulin syringe-needle U-100 (Advocate Syringes) Use 1 needle once a month lidocaine 5% (Lidoderm) 1 patch topical DAILY PRN MDD remove after 12 hours lisinopril 10 mg PO DAILY methylcellulose (laxative) (Citrucel Sugar Free oral powder) 2 grams PO DAILY PRN montelukast 10 mg PO DAILY 90 days nebulizers (AeroEclipse II Nebulizer) As directed nortriptyline 10 mg PO BEDTIME ondansetron 4 mg PO Q6-8H PRN oxycodone-acetaminophen 5-325 mg 1 tab PO Q8H PRN 30 days pantoprazole 40 mg PO DAILY 30 days prochlorperazine maleate 10 mg PO TID PRN rosuvastatin 10 mg PO DAILY semaglutide 0.25 mg (0.368 mL) subcut QWEEK 28 days Shower Chair As directed simethicone (Gas Relief Extra Strength) 125 mg PO TID-QID PRN syringe with needle, safety (BD Safety-Jone Detachable Needle) Use 1 syringe once a month terbinafine HCl 250 mg PO DAILY 90 days thiamine HCl (vitamin B1) 1 tab PO DAILY tizanidine 4 mg PO Q8H PRN 30 days vitamin A 1 cap PO DAILY Tobacco use date assessed: 05/08/22 HPI HPI Comments History of Present Illness Details This is a 47-year-old female with diabetes mellitus type 2 on long-term current use of insulin, hypertension, hyperlipidemia and acid reflux that comes today accompanied by for follow-up on her conditions. A1c goal still elevated and she will have insulin pump placed tomorrow. Blood pressure borderline elevated. Lipid panel will be order and her LDL goal should be less than 70. Acid reflux stable with pantoprazole. No chest pain or shortness of breath. [facility] Medical History (Updated 02/06/23 @ 17:19 by Analilia Schumacher MD) Physical exam Hyperlipidemia LDL goal <100 Cellulitis of toe of right foot Hospital discharge follow-up Goiter Onychomycosis Vitamin D deficiency T2DM (type 2 diabetes mellitus) Left ankle pain B12 deficiency Left leg pain Acid reflux History of colonic polyps Chronic fatigue Carpal tunnel syndrome Daytime hypersomnia Autoimmune thyroiditis Fibromyalgia Morbid obesity Spondylosis, thoracic, 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 spine without myelopathy History of ulcer disease Sessile colonic polyp Obesity Tracee's disease care home (current) use of insulin Diabetic nephropathy associated with type 2 diabetes mellitus Diabetic retinopathy associated with type 2 diabetes mellitus Diabetic polyneuropathy associated with type 2 diabetes mellitus Iron (Fe) deficiency anemia History of Graves' disease Lumbar degenerative disc disease Back pain Anxiety and depression GERD (gastroesophageal reflux disease) Asthma Hyperlipidemia Hypertension Diabetes mellitus Polyarthralgia Surgical History History of carpal tunnel surgery of right wrist H/O endoscopy History of cataract extraction History of lumpectomy of left breast History of carpal tunnel surgery of left wrist Hx of section Hx laparoscopic cholecystectomy Hx of esophagogastroduodenoscopy Hx of colonoscopy H/O gastric bypass Family History Father Diabetes Hypertension Mother Diabetes Hypertension Maternal Grandmother Colon cancer Paternal Aunt Cancer of ear Social History Household Members: Family Housing: House Alcohol intake: never Patient Tobacco Use Status: Former Tobacco user Quit Date: 2013 Tobacco use type: Cigarette Cigarette Packs Per Day: 1 Cigarettes Per Day: 20.0 Years Smoked: 20 e-Cigarette/Vaping Use: Never Used Second Hand Smoke Exposure: No service: No Current occupational status: disabled Current occupation: right hand dominant Cognitive needs: No Hearing needs: No Vision needs: Yes Female Reproductive History Menstrual Age of Menarche: 14 Questionnaire Thrive Questionnaire Date Thrive assessed: 05/08/22 MARCO-7 AMB Questionnaire MARCO-7 Date MARCO - 7 assessed: 05/08/22 Source: Developed by Drs. Parmjit Be, Yessi Gold, Ji Mahmood and colleagues, with an educational anni from [employer]. Review of Systems Const All systems reviewed & are unremarkable except as noted in HPI and below Eyes Reports no additional complaints, Denies change in vision and Denies other visual disturbances Card Denies chest pain at rest, Denies chest pain with activity, Denies edema, Denies irregular heart rhythm, Denies claudication, Denies dyspnea, Denies dyspnea on exertion, Denies orthopnea, Denies paroxysmal nocturnal dyspnea and Denies slow heart rate Resp Denies cough, Denies dyspnea and Denies dyspnea on exertion GI Denies abdominal pain, Denies change in bowel habits, Denies excessive flatus, Denies nausea and Denies vomiting Denies urinary incontinence, Denies urinary hesitancy and Denies urinary urgency Musc Denies abnormal gait, Denies atrophy, Denies deformity and Denies limited range of motion Skin/Breast Denies bleeding lesions, Denies changing lesions and Denies rash Neuro Denies abnormal gait, Denies behavioral changes and Denies lack of coordination Psych Denies behavioral changes Physical exam (Primary Care) Vital Signs: Last Vital Signs BP 146/80 H 02/06/23 17:01 BMI result Body Mass Index 32.6 Tobacco/Smoking Status: Tobacco use Status Tobacco use date assessed 05/08/22 02/06/23 17:02 Patient Tobacco Use Status Former Tobacco user 02/06/23 17:02 Tobacco use type Cigarette 02/06/23 17:02 e-Cigarette/Vaping Use Never Used 02/06/23 17:02 Thrive Assessment: Date of Thrive Assessment Date Thrive assessed 05/08/22 02/06/23 17:02 Eyes General: appearance normal, both eyes and all related structures Eyelids: Yes eyelids normal Conjunctivae: conjunctivae normal Neck Neck: Yes normal visual inspection and Yes supple Resp Effort & Inspection: normal respiratory effort Auscultation: clear to auscultation bilaterally Cardio Jugular venous distension: no JVD Rate: regular rate Rhythm: regular rhythm Heart sounds: S1 normal heart sound present and S2 normal heart sound present Extrem General: Yes full ROM Assessment and Plan Assessment & Plan (1) T2DM (type 2 diabetes mellitus): Code(s): E11.9 - Type 2 diabetes mellitus without complications Qualifiers: Diabetes mellitus fci insulin use: with fci use Diabetes mellitus complication status: with hyperglycemia Qualified Code(s): E11.65 - Type 2 diabetes mellitus with hyperglycemia; Z79.4 - care home (current) use of insulin Plan: Start insulin pump. A1c goal is equal or less than 7%. (2) Hyperlipidemia LDL goal <70: Code(s): E78.5 - Hyperlipidemia, unspecified Plan: Continue statins. LDL goal is less than 70. (3) Hypertension: Code(s): I10 - Essential (primary) hypertension Qualifiers: Hypertension type: essential hypertension Qualified Code(s): I10 - Essential (primary) hypertension Plan: Continue lisinopril. Blood pressure goal is equal or less than 130/80. (4) Acid reflux: Comment: med list- extensive continue pantoprazole 40 mg daily, -avoid culprits, Code(s): K21.9 - Gastro-esophageal reflux disease without esophagitis Plan: Continue PPIs as needed. 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
== END 2023-02-06 17:22 | disposition home or self-care (01) ==
PROVIDERS: PCP Internal Medicine; Visit Provider Internal Medicine
DX: E11.65 Type 2 diabetes mellitus with hyperglycemia (principal); Z79.4 Long term (current) use of insulin; E78.5 Hyperlipidemia, unspecified; I10 Essential (primary) hypertension; K21.9 Gastro-esophageal reflux disease without esophagitis
CPT/HCPCS: 99214

== ENCOUNTER 2023-02-07 08:17 | Outpatient (AMB) | payer OTHER, SELFPAY ==
--- NOTE | 2023-02-07 09:26 | A.OFFVIS_ITS ---
Intake Intake Visit Reasons: dm/CONFIRMED Grades 7 8 Tutor Required: Yes Grades 7 8 Tutor Language: Correctional Manager Name: Nicolette [facility] [place] Information Interpreted: non-clinical & clinical Accompanied by: Self / Same As Patient Allergies adhesive tape [ADHESIVE TAPE] Allergy (Intermediate, Verified 02/06/23 17:14) RASH pioglitazone [From ACTOS] Allergy (Intermediate, Verified 02/06/23 17:14) facial edema,rash latex Allergy (Mild, Verified 02/06/23 17:14) Rash HPI Comprehensive Diabetes Asmnt Most Recent Diabetes Results: Microalb/Creat Ratio 159.1 ug/mg cr (<30) H 01/22/23 Cholesterol 186 mg/dL (<200) 01/22/23 HDL Cholesterol 64 mg/dL (>40) 01/22/23 Triglycerides 133 mg/dL (<150) 01/22/23 Creatinine 0.78 mg/dL (0.5-1.4) 01/22/23 Blood Urea Nitrogen 11 mg/dL (9-16) 01/22/23 Sodium 130 mmol/L (135-145) L 01/22/23 Potassium 4.7 mmol/L (3.3-5.1) 01/22/23 Chloride 99 mmol/L (96-108) 01/22/23 Carbon Dioxide 21 mmol/L (22-29) L 01/22/23 Calcium 10.1 mg/dL (8.4-10.2) 01/22/23 AST 11 U/L (5-31) 01/22/23 ALT 14 U/L (0-31) 01/22/23 Total Protein 8.5 g/dL (6.5-8.0) H 01/22/23 Albumin 4.3 g/dL (3.5-5.0) 01/22/23 [facility] Medical History (Updated 02/06/23 @ 17:19 by Analilia Schumacher MD) Physical exam Hyperlipidemia LDL goal <100 Cellulitis of toe of right foot Hospital discharge follow-up Goiter Onychomycosis Vitamin D deficiency T2DM (type 2 diabetes mellitus) Left ankle pain B12 deficiency Left leg pain Acid reflux History of colonic polyps Chronic fatigue Carpal tunnel syndrome Daytime hypersomnia Autoimmune thyroiditis Fibromyalgia Morbid obesity Spondylosis, thoracic, 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 spine without myelopathy History of ulcer disease Sessile colonic polyp Obesity 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 Diabetic nephropathy associated with type 2 diabetes mellitus Diabetic retinopathy associated with type 2 diabetes mellitus Diabetic polyneuropathy associated with type 2 diabetes mellitus Iron (Fe) deficiency anemia History of Graves' disease Lumbar degenerative disc disease Back pain Anxiety and depression GERD (gastroesophageal reflux disease) Asthma Hyperlipidemia Hypertension Diabetes mellitus Polyarthralgia Surgical History History of carpal tunnel surgery of right wrist H/O endoscopy History of cataract extraction History of lumpectomy of left breast History of carpal tunnel surgery of left wrist Hx of section Hx laparoscopic cholecystectomy Hx of esophagogastroduodenoscopy Hx of colonoscopy H/O gastric bypass Family History Father Diabetes Hypertension Mother Diabetes Hypertension Maternal Grandmother Colon cancer Paternal Aunt Cancer of ear Social History Household Members: Family Housing: House Alcohol intake: never Patient Tobacco Use Status: Former Tobacco user Quit Date: 2013 Tobacco use type: Cigarette Cigarette Packs Per Day: 1 Cigarettes Per Day: 20.0 Years Smoked: 20 e-Cigarette/Vaping Use: Never Used Second Hand Smoke Exposure: No service: No Current occupational status: disabled Current occupation: right hand dominant Cognitive needs: No Hearing needs: No Vision needs: Yes Female Reproductive History Menstrual Age of Menarche: 14 Assessment & Plan Assessment & Plan (1) T2DM (type 2 diabetes mellitus): Code(s): E11.9 - Type 2 diabetes mellitus without complications Qualifiers: Diabetes mellitus custodial insulin use: with long term care social worker use Diabetes mellitus complication status: with hyperglycemia Qualified Code(s): E11.65 - Type 2 diabetes mellitus with hyperglycemia; Z79.4 - exterminator helper termite (current) use of insulin Plan: Patient presents for pump training for T slim with control IQ, upgrade from T slim with basal IQ The following topics were reviewed today: -Pump therapy basic concepts: Basal/bolus, insulin to carb ratio, correction factor, insulin on board -Device settings: Bluetooth/mobile connection (if applicable), correct date and time, sound volume -CGM settings(if integrated system): CGM graft views and trend arrows, alerts and alarms, Start new sensor Insulin delivery settings Program insulin to carb ratio, correction factor, target blood glucose, suspend or resume insulin delivery, bolus limit and basal limit settings Instructed patient to only use room temperature insulin, how to load cartridge or fill pod, with insulin. Fill tubing and cannula (if applicable) Inserting infusion set or starting pod Troubleshooting after starting new pod or inserting new insulin set: Occlusion, adhesive tape sensitivity, redness Check BG 2 hours after site change - Sensor setting (if applicable) ?? High Alert: 180 mg/dl ??? Low Alert: 80 mg/dl Safety information: Patient understands the basic concepts of pump therapy, how to give insulin for meals and snacks, how to troubleshoot for hyper and hypoglycemia. Setting verified by [facility] Basal rate(s) (units/hour) : 12 AM? to 5 AM? 0.6 units / hr 5 AM? to 12 PM? 0.7 units / hr 12 PM to 5 PM 0.725 units / hr 5 PM to 12 AM 0.8 units / hr? Bolus setting Insulin Carbohydrate Ratio (s) 12 AM? to 12 AM? 1:7 5PM to 12 AM 1:7.5 Correction Factor / Sensitivity Factor 12 AM? to 12 AM? 1:40 Active Insulin Time:? 4 hours Target(s): 12 AM? to 12 AM? 120 mg/dL Patient Instructions: instructed patient to call [facility] [employer] medical equipment regarding next shipment of Dexcom G6 sensors follow-up with Diabetes Education nurse in 2 weeks Coding Level of Care Code Est Pt Level 1 (68951) Diagnoses Type 2 diabetes mellitus with hyperglycemia, with long-term current use of insulin E11.65; Z79.4 Diabetes mellitus long term care social worker insulin use: with long term care social worker use Diabetes mellitus complication status: with hyperglycemia
== END 2023-02-07 09:31 | disposition home or self-care (01) ==
PROVIDERS: PCP Internal Medicine; Visit Provider Registered Nurse Diabetes Educator
DX: E11.65 Type 2 diabetes mellitus with hyperglycemia (principal); Z79.4 Long term (current) use of insulin

== ENCOUNTER → 2023-02-07 08:17 | Outpatient (BNVA) | payer OTHER, SELFPAY | PROVIDERS: PCP Internal Medicine; Visit Provider Registered Nurse Diabetes Educator | DX: Z46.81 Encounter for fitting and adjustment of insulin pump (principal); E11.65 Type 2 diabetes mellitus with hyperglycemia; Z79.4 Long term (current) use of insulin | CPT/HCPCS: 99211 ==

== ENCOUNTER 2023-02-26 12:09 | Outpatient (AMB) | payer OTHER, SELFPAY ==
--- NOTE | 2023-02-26 13:19 | MHC.AMDMED ---
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: Yes Tractor Mechanic Helper Language: Solar Photovoltaic Installer Name: Angelina [facility] [place] Accompanied by: Self / Same As Patient Allergies adhesive tape [ADHESIVE TAPE] Allergy (Intermediate, Verified 02/06/23 17:14) RASH pioglitazone [From ACTOS] Allergy (Intermediate, Verified 02/06/23 17:14) facial edema,rash latex Allergy (Mild, Verified 02/06/23 17:14) Rash HPI Comprehensive Diabetes Asmnt Most Recent Diabetes Results: Microalb/Creat Ratio 159.1 ug/mg cr (<30) H 01/22/23 Cholesterol 186 mg/dL (<200) 01/22/23 HDL Cholesterol 64 mg/dL (>40) 01/22/23 Triglycerides 133 mg/dL (<150) 01/22/23 Creatinine 0.78 mg/dL (0.5-1.4) 01/22/23 Blood Urea Nitrogen 11 mg/dL (9-16) 01/22/23 Sodium 130 mmol/L (135-145) L 01/22/23 Potassium 4.7 mmol/L (3.3-5.1) 01/22/23 Chloride 99 mmol/L (96-108) 01/22/23 Carbon Dioxide 21 mmol/L (22-29) L 01/22/23 Calcium 10.1 mg/dL (8.4-10.2) 01/22/23 AST 11 U/L (5-31) 01/22/23 ALT 14 U/L (0-31) 01/22/23 Total Protein 8.5 g/dL (6.5-8.0) H 01/22/23 Albumin 4.3 g/dL (3.5-5.0) 01/22/23 [facility] Medical History (Updated 02/06/23 @ 17:19 by Analilia Schumacher MD) Physical exam Hyperlipidemia LDL goal <100 Cellulitis of toe of right foot Hospital discharge follow-up Goiter Onychomycosis Vitamin D deficiency T2DM (type 2 diabetes mellitus) Left ankle pain B12 deficiency Left leg pain Acid reflux History of colonic polyps Chronic fatigue Carpal tunnel syndrome Daytime hypersomnia Autoimmune thyroiditis Fibromyalgia Morbid obesity Spondylosis, thoracic, 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 spine without myelopathy History of ulcer disease Sessile colonic polyp Obesity Tracee's 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 Diabetic nephropathy associated with type 2 diabetes mellitus Diabetic retinopathy associated with type 2 diabetes mellitus Diabetic polyneuropathy associated with type 2 diabetes mellitus Iron (Fe) deficiency anemia History of Graves' disease Lumbar degenerative disc disease Back pain Anxiety and depression GERD (gastroesophageal reflux disease) Asthma Hyperlipidemia Hypertension Diabetes mellitus Polyarthralgia Surgical History History of carpal tunnel surgery of right wrist H/O endoscopy History of cataract extraction History of lumpectomy of left breast History of carpal tunnel surgery of left wrist Hx of section Hx laparoscopic cholecystectomy Hx of esophagogastroduodenoscopy Hx of colonoscopy H/O gastric bypass Family History Father Diabetes Hypertension Mother Diabetes Hypertension Maternal Grandmother Colon cancer Paternal Aunt Cancer of ear Social History Household Members: Family Housing: House Alcohol intake: never Patient Tobacco Use Status: Former Tobacco user Quit Date: 2013 Tobacco use type: Cigarette Cigarette Packs Per Day: 1 Cigarettes Per Day: 20.0 Years Smoked: 20 e-Cigarette/Vaping Use: Never Used Second Hand Smoke Exposure: No service: No Current occupational status: disabled Current occupation: right hand dominant Cognitive needs: No Hearing needs: No Vision needs: Yes Female Reproductive History Menstrual Age of Menarche: 14 Assessment & Plan Assessment & Plan (1) T2DM (type 2 diabetes mellitus): Code(s): E11.9 - Type 2 diabetes mellitus without complications Qualifiers: Diabetes mellitus termination clerk insulin use: with custodial use Diabetes mellitus complication status: with hyperglycemia Qualified Code(s): E11.65 - Type 2 diabetes mellitus with hyperglycemia; Z79.4 - [facility] (current) use of insulin Plan: Patient presents for pump training for T slim with control IQ, and Dexcom G6 Patient uses Humulin U 500 in insulin pump The following topics were reviewed today: -Sleep Schedule programed -Exercise mode reviewed -Fill cartridge to 2 mL in order to get 3 days wear out of each insulin delivery set - Sensor setting (if applicable) ?? High Alert: 180 mg/dl ??? Low Alert: 80 mg/dl Patient above target 75% Patient at target 25% Patient below target 0% Patient average glucose for the past 2 weeks 252 mg/dL Patient having significant amount of postprandial hyperglycemia. Patient is getting multiple micro boluses after mealtime bolus Discussed with patient importance of bolusing at least 30 minutes prior to meals See changed insulin to carb ratio below Patient is also increasing dose of Ozempic from 0.25 mg to 0.5 mg this will happen on 02/28/2023 Instructed patient if she has increase in hypoglycemic events to contact peer educator Safety information: Patient understands the basic concepts of pump therapy, how to give insulin for meals and snacks, how to troubleshoot for hyper and hypoglycemia. Setting verified by [facility] Basal rate(s) (units/hour) : 12 AM? to 5 AM? 0.6 units / hr 5 AM? to 12 PM? 0.7 units / hr 12 PM to 5 PM 0.725 units / hr 5 PM to 12 AM 0.8 units / hr? Bolus setting Insulin Carbohydrate Ratio (s) 12 AM? to 12 AM? 1:7 New 12 AM? to 12 AM? 1:6 5PM to 12 AM 1:7.5 New 5PM to 12 AM 1:6 Correction Factor / Sensitivity Factor 12 AM? to 12 AM? 1:40 Active Insulin Time:? 4 hours Target(s): Control IQ 12 AM? to 12 AM? 110 mg/dL Patient Instructions: Use rule of 15s to treat hypoglycemia Follow-up with peer educator in 2 months Coding Level of Care Code Est Pt Level 1 (03428) Diagnoses Type 2 diabetes mellitus with hyperglycemia, with long-term current use of insulin E11.65; Z79.4 Diabetes mellitus custodial insulin use: with custodial use Diabetes mellitus complication status: with hyperglycemia
== END 2023-02-26 13:21 | disposition home or self-care (01) ==
PROVIDERS: PCP Internal Medicine; Visit Provider Registered Nurse Diabetes Educator
DX: E11.65 Type 2 diabetes mellitus with hyperglycemia (principal); Z79.4 Long term (current) use of insulin

== ENCOUNTER → 2023-02-26 12:09 | Outpatient (BNVA) | payer OTHER, SELFPAY | PROVIDERS: PCP Internal Medicine; Visit Provider Registered Nurse Diabetes Educator | DX: Z46.81 Encounter for fitting and adjustment of insulin pump (principal); E11.65 Type 2 diabetes mellitus with hyperglycemia; Z79.4 Long term (current) use of insulin | CPT/HCPCS: 99211 ==

== ENCOUNTER 2023-02-27 09:47 | Outpatient (REF) | payer OTHER, SELFPAY ==
[2023-03-03 23:54] LABS: HPV mRNA E6/E7 rflx Not Detected (Not Detected)
== END 2023-02-27 09:48 | disposition home or self-care (01) ==
LOC: HO.LAB 09:47
PROVIDERS: PCP Internal Medicine; Visit Provider Advanced Practice Midwife
DX: Z01.419 Encounter for gynecological examination (general) (routine) without abnormal findings (principal); N95.1 Menopausal and female climacteric states; B37.31 Acute candidiasis of vulva and vagina; Z87.42 Personal history of other diseases of the female genital tract; Z86.018 Personal history of other benign neoplasm
CPT/HCPCS: 0353U; 87480; 87510; 87624; 87660; 88142; 99396

== ENCOUNTER 2023-02-27 09:47 | Outpatient (AMB) | payer OTHER, SELFPAY ==
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
[2023-02-27 09:59] VITALS: BP 142/78; BMI 34.7
== END 2023-02-27 11:23 | disposition home or self-care (01) ==
LOC: HO.HWSM 09:47
PROVIDERS: PCP Internal Medicine; Visit Provider Advanced Practice Midwife
DX: Z01.419 Encounter for gynecological examination (general) (routine) without abnormal findings (principal); N95.1 Menopausal and female climacteric states; Z87.42 Personal history of other diseases of the female genital tract
CPT/HCPCS: 99396

== ENCOUNTER 2023-03-25 09:20 | Outpatient (REF) | payer OTHER, SELFPAY ==
--- NOTE | ~2023-03-25 | MM_ITS ---
EXAMINATION: MM SCREENING DIGITAL BREAST TOMOSYNTHESIS, BILATERAL CLINICAL INFORMATION: Screening. Asymptomatic. COMPARISON: Mammography: This study is compared with prior exams dating back to 2018. TECHNIQUE: Digital breast tomosynthesis is performed in both the craniocaudal and mediolateral oblique views along with computer-aided detection (CAD). Synthesized 2D images are generated from the tomosynthesis. FINDINGS: There are scattered areas of fibroglandular density (ACR BI-RADS breast composition Category b). There are grouped calcifications in the upper inner quadrant of the left breast at anterior depth. This is somewhat amorphous. There is a possibility the calcifications may represent milk of calcium however, additional imaging with magnification mammography is advised. There is a tissue marker in the left breast from prior benign percutaneous biopsy. In the right breast, there are no significant masses, abnormal calcifications, or other abnormalities. MM/MM tomosynthesis screening BI IMPRESSION: Grouped calcifications in the left breast warrants additional mammographic imaging with magnification. No mammographic signs of malignancy right breast. ASSESSMENT: BI-RADS BI-RADS 0 - Incomplete: Needs additional Imaging. RECOMMENDATION: Additional views of the left breast. Radiology department staff will contact the patient for additional imaging. Additional Imaging required This examination should not preclude the clinical evaluation of a suspicious palpable abnormality. This patient's information was entered into a reminder system with a target due date for their next mammogram.
== END 2023-03-25 09:21 | disposition home or self-care (01) ==
LOC: HO.MAMMO 09:20
PROVIDERS: PCP Internal Medicine; Visit Provider Internal Medicine
DX: Z12.31 Encounter for screening mammogram for malignant neoplasm of breast (principal)
CPT/HCPCS: 77063; 77067

== ENCOUNTER → 2023-03-25 09:30 | Outpatient (BNV) | payer OTHER, SELFPAY | PROVIDERS: PCP Internal Medicine; Visit Provider Radiology Diagnostic Radiology | DX: Z12.31 Encounter for screening mammogram for malignant neoplasm of breast (principal) | CPT/HCPCS: 77063; 77067 ==

== ENCOUNTER 2023-04-07 08:00 | Outpatient (AMB) | payer OTHER, SELFPAY ==
[2023-04-07 08:01] VITALS: BP 152/86; PULSE 80; BMI 35.1
--- NOTE | 2023-04-07 08:01 | MHC.OFFVIS ---
Intake Vital Signs 04/07/23 08:01 Height 5 ft 9 in Weight 237 lb 14.06 oz BMI 35.1 BP 152/86 H Blood Pressure Location Lt brachial Position Sitting Pulse 80 Pulse Source Pulse Oximeter Intake Visit Reasons: F/U T2DM/pump and sensor Intake Note: Patient presents today to follow up on D2MT. Last Diabetic Eye exam: 12/2022 Last Podiatry Visit: 12/2022 Random Glucose: 163 mg/dl HgA1c: 13.1% 01/21/23 Primary Care Coordinator Required: Yes Primary Care Coordinator Language: Senior Electrical Project Manager Name: Sandor [id number] Information Interpreted: non-clinical & clinical Accompanied by: Self / Same As Patient Allergies adhesive tape [ADHESIVE TAPE] Allergy (Intermediate, Verified 04/07/23 08:06) RASH pioglitazone [From ACTOS] Allergy (Intermediate, Verified 04/07/23 08:06) facial edema,rash latex Allergy (Mild, Verified 04/07/23 08:06) Rash Medication List - Last Reconciled 04/07/23 by Parmjit Aguayo MD acetaminophen (Tylenol Extra Strength) 500 mg PO Q6H PRN albuterol sulfate 90 mcg/actuation 1 inh inhalation QID PRN albuterol sulfate 2.5 mg (3 mL) inhalation QID PRN 25 days artifi.tears(hypromellose)(PF) 0.3% 1 drp ophthalmic-Right Q4-6H PRN ascorbate calcium (vitamin C) 500 mg PO DAILY barium sulfate 2%(w/v) (Readi-Cat 2) 450 mL PO DIRECTED 1 day benzonatate 100 mg PO BID PRN 5 days blood sugar diagnostic (FreeStyle Lite Strips) TEST 4 TIMES DAILY blood-glucose meter (FreeStyle Lite Meter kit) TEST 4 TIMES DAILY buspirone 1 tab PO TID buspirone 15 mg PO TID canagliflozin (Invokana) 300 mg PO DAILY cane As directed cetirizine (Zyrtec) 10 mg PO DAILY 90 days cholecalciferol (vitamin D3) 50 mcg PO DAILY 30 days citalopram 1 tab PO DAILY citalopram 10 mg PO DAILY cyanocobalamin (vitamin B-12) 1,000 mcg PO DAILY cyclobenzaprine 5 mg PO Q8H PRN 5 days cyclobenzaprine 10 mg PO TID PRN diclofenac sodium 75 mg PO BID docusate sodium 100 mg PO DAILY ferrous sulfate 325 mg PO DAILY fluconazole 150 mg PO Q3D 2 doses fluconazole 150 mg PO Q3D 2 doses fluticasone propionate 50 mcg/actuation (Flonase Allergy Relief) 1 spray intranasal DAILY 30 days furosemide 20 mg PO BID 90 days gabapentin 100 mg PO TID 30 days hydrocortisone 2.5% (Proctozone-HC) 1 appl CO BID PRN hydrocortisone-pramoxine 1-1 % (Proctofoam HC) 1 appl CO DAILY hydroxyzine HCl 1 - 2 tabs PO QID ibuprofen 400 mg PO TID PRN insulin syringe-needle U-100 (Advocate Syringes) Use 1 needle once a month lidocaine 5% (Lidoderm) 1 patch topical DAILY PRN MDD remove after 12 hours lisinopril 10 mg PO DAILY methylcellulose (laxative) (Citrucel Sugar Free oral powder) 2 grams PO DAILY PRN miconazole nitrate 2% (Miconazole-7) 1 appful vaginal BEDTIME 7 days montelukast 10 mg PO DAILY 90 days nebulizers (AeroEclipse II Nebulizer) As directed nortriptyline 10 mg PO BEDTIME ondansetron 4 mg PO Q6-8H PRN oxycodone-acetaminophen 5-325 mg 1 tab PO Q8H PRN 30 days pantoprazole 40 mg PO DAILY 30 days prochlorperazine maleate 10 mg PO TID PRN rosuvastatin 10 mg PO DAILY Shower Chair As directed simethicone (Gas Relief Extra Strength) 125 mg PO TID-QID PRN syringe with needle, safety (BD Safety-Jone Detachable Needle) Use 1 syringe once a month thiamine HCl (vitamin B1) 1 tab PO DAILY tirzepatide (Mounjaro) 2.5 mg (0.5 mL) subcut QWEEK 4 weeks tizanidine 4 mg PO Q8H PRN 30 days vitamin A 1 cap PO DAILY HPI HPI Comments History of Present Illness Details 48 YO F with PMHx T2DM who is seen in F/U for the same. She has a history of prior bariatric surgery in June of 2015. The patient last saw Dr. Chi. On 08/08/2021 Current regimen Canagliflozin 300 mg PO daily, Ozempic 0.5 mg once a week and Humulin U-500 in a tandem insulin pump. Pump Settings: Basal rate(s) (units/hour) : 12 AM? to 5 AM? 0.6 units / hr 5 AM? to 12 PM? 0.7 units / hr 12 PM to 5 PM 0.725 units / hr 5 PM to 12 AM 0.8 units / hr? Bolus setting Insulin Carbohydrate Ratio (s) New 12 AM? to 5PM ? 1:7 New 5PM to 12 AM 1:6.5 Correction Factor / Sensitivity Factor 12 AM? to 12 AM? 1:40 Active Insulin Time:? 4 hours Target(s): Control IQ 12 AM? to 12 AM? 110 mg/d Total daily dose of insulin is 58.81. 53% basal with 20 18% bolus and 22% control IQ and 6% correction bolus She changes her site every 3 days. 14 days of sensor data downloaded from 03/24/2023 through 03/30/2023. This reveals an average glucose of ,245 with range 65-. 400 She is at goal 23% of the time, above goal 77% of the time, and below goal 0% of the time.. Pattern shows post-breakfast hyperglycemia with hyperglycemia throughout the day.. 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 Has symptoms with hypoglycemia. Treats according to the rule of 15's. She does not accurately count carbohydrates out of fear of hypoglycemia if she inputs the correct amount of carbs eaten into her pump. She is not using the sensor and is only checking her blood sugars rarely Has a positive Family history of T2DM. Has eyes checked yearly, last eye exam 12/2022 , has retinopathy. Has neuropathy. Has nephropathy, on Lisinopril 5 mg PO daily. UAC 17.3 04/14/2021. Has HLD, on rosuvastatin 10 mg PO daily. NLDL 79 04/14/2021. Denies CAD. Diet: Does follow a low carb diet. Weight: Stable. Has diabetes education. Labs: Laboratory Tests 04/14/21 04/14/21 04/14/21 08:19 08:19 08:19 Creatinine 0.69 Estimated GFR > 60 Hemoglobin A1c % 10.3 LDL Cholesterol, C alc 79 25-OH Vitamin D To juan 12 L TSH 1.86 Microalb/Creat Rat io 04/14/21 08:25 Creatinine Estimated GFR Hemoglobin A1c % LDL Cholesterol, C alc 25-OH Vitamin D To juan TSH Microalb/Creat Rat io 17.3 PFSH Medical History Physical exam Hyperlipidemia LDL goal <100 Cellulitis of toe of right foot Hospital discharge follow-up Goiter Onychomycosis Vitamin D deficiency T2DM (type 2 diabetes mellitus) Left ankle pain B12 deficiency Left leg pain Acid reflux History of colonic polyps Chronic fatigue Carpal tunnel syndrome Daytime hypersomnia Autoimmune thyroiditis Fibromyalgia Morbid obesity Spondylosis, thoracic, 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 spine without myelopathy History of ulcer disease Sessile colonic polyp Obesity Tracee's disease 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 Diabetic nephropathy associated with type 2 diabetes mellitus Diabetic retinopathy associated with type 2 diabetes mellitus Diabetic polyneuropathy associated with type 2 diabetes mellitus Iron (Fe) deficiency anemia History of Graves' disease Lumbar degenerative disc disease Back pain Anxiety and depression GERD (gastroesophageal reflux disease) Asthma Hyperlipidemia Hypertension Diabetes mellitus Polyarthralgia Surgical History History of carpal tunnel surgery of right wrist H/O endoscopy History of cataract extraction History of lumpectomy of left breast History of carpal tunnel surgery of left wrist Hx of section Hx laparoscopic cholecystectomy Hx of esophagogastroduodenoscopy Hx of colonoscopy H/O gastric bypass Family History Father Diabetes Hypertension Mother Diabetes Hypertension Maternal Grandmother Colon cancer Paternal Aunt Cancer of ear Social History (Reviewed 02/27/23 @ 09:50 by Myron Sanderson [facility]) Household Members: Family Housing: House Alcohol intake: never Patient Tobacco Use Status: Former Tobacco user Quit Date: 2013 Tobacco use type: Cigarette Cigarette Packs Per Day: 1 Cigarettes Per Day: 20.0 Years Smoked: 20 e-Cigarette/Vaping Use: Never Used Second Hand Smoke Exposure: No service: No Current occupational status: disabled Current occupation: right hand dominant Cognitive needs: No Hearing needs: No Vision needs: Yes Female Reproductive History Menstrual Age of Menarche: 14 Physical Exam Absence of Cushingoid features. Absence of acromegalic features. Neck exam reveals nl size thyroid about 15 gms. No thyroid nodules palpable. No carotid bruits present. Lungs CTA. Heart S1 S2, Reg R/R. No M/R/ G. Skin exam reveals absence of vitiligo or acanthosis nigricans. Abdominal exam reveals Soft NT/ND with NA BS. No organomegaly present. Neck Other: . Extrem Other: Visual exam of foot performed. Right 2nd toe bandaged No onchomycosis, no callouses.Pulses 2 + distally Sensation intact to monofilament exam. Vibratory sensation sensed is intact with 128 Hz tuning fork Assessment & Plan Assessment & Plan (1) T2DM (type 2 diabetes mellitus): Code(s): E11.9 - Type 2 diabetes mellitus without complications Qualifiers: Diabetes mellitus complication status: with hyperglycemia Diabetes mellitus nursing home insulin use: with carton repairer use Qualified Code(s): E11.65 - Type 2 diabetes mellitus with hyperglycemia; Z79.4 - moderate needs teacher (current) use of insulin Plan: This is a 48-year-old female with a history of type 2 diabetes being treated with Trulicity, Invokana and U-500 insulin insulin pump with poor glycemic control and known microvascular complications namely nephropathy, retinopathy and neuropathy Plan is to adjust basal rate from 12 AM? to 5 AM and 5 AM to 12 A to ? 0.5 units / hr and to tighten insulin: Carbohydrate to 1:6 . I will also change Ozempic to Mounjaro 2.5 mg Qwkly. Patient has tried and had unsuccessful response to both Trulicity and Ozempic I would benefit from Mounjaro. She will follow up with the transport conductor next several weeks. She was warned about side effects of Mounjaro including but not limited to nausea, vomiting and rare risk of pancreatitis. She was also told to report any hypoglycemia for adjustment of her insulin pump once starting the Mounjaro. Medications: New tirzepatide (Mounjaro) 2.5 mg (0.5 mL) subcut QWEEK 2 mL 5RF 4 weeks Discontinued semaglutide Discontinued Reason: Doctor's Order 0.5 mg (0.736 mL) subcut QWEEK 9.568 mL 1RF 90 days Coding Level of Care Code Est Pt Level 4 (97871) Diagnoses Type 2 diabetes mellitus with hyperglycemia, with long-term current use of insulin E11.65; Z79.4 Diabetes mellitus complication status: with hyperglycemia Diabetes mellitus nursing home insulin use: with carton repairer use
[2023-04-07 08:15] LABS: Glucose, Whole Blood 163 mg/dL (60-115)
== END 2023-04-07 08:32 | disposition home or self-care (01) ==
PROVIDERS: PCP Internal Medicine; Visit Provider Internal Medicine Endocrinology, Diabetes & Metabolism
DX: E11.65 Type 2 diabetes mellitus with hyperglycemia (principal); Z79.4 Long term (current) use of insulin
CPT/HCPCS: 99214

== ENCOUNTER → 2023-04-07 08:00 | Outpatient (BNVA) | payer OTHER, SELFPAY | PROVIDERS: PCP Internal Medicine; Visit Provider Internal Medicine Endocrinology, Diabetes & Metabolism | DX: Z46.81 Encounter for fitting and adjustment of insulin pump (principal); E11.65 Type 2 diabetes mellitus with hyperglycemia; Z79.4 Long term (current) use of insulin | CPT/HCPCS: 82947; 99212 ==

== ENCOUNTER 2023-04-10 08:52 | Outpatient (AMB) | payer OTHER, SELFPAY ==
[2023-04-10 08:53] VITALS: BP 150/80; BMI 35.0
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
== END 2023-04-10 10:30 | disposition home or self-care (01) ==
LOC: HO.HWSM 08:52
PROVIDERS: PCP Internal Medicine; Visit Provider Advanced Practice Midwife
DX: B37.31 Acute candidiasis of vulva and vagina (principal); N95.1 Menopausal and female climacteric states; Z87.42 Personal history of other diseases of the female genital tract; E66.9 Obesity, unspecified; Z86.018 Personal history of other benign neoplasm; E11.42 Type 2 diabetes mellitus with diabetic polyneuropathy; Z32.02 Encounter for pregnancy test, result negative
CPT/HCPCS: 58100; 99213

== ENCOUNTER 2023-04-10 08:52 | Outpatient (REF) | payer OTHER, SELFPAY ==
[2023-04-11 02:56] LABS: CT PCR NOT DETECTED (Not Detect.); NG PCR NOT DETECTED (Not Detect.)
[2023-04-11 09:57] LABS: BV Int Neg Control Negative (Negative); BV Int Pos Control Positive (Positive)
[2023-04-15 04:24] LABS: HPV mRNA E6/E7 rflx Not Detected (Not Detected)
== END 2023-04-10 08:53 | disposition home or self-care (01) ==
LOC: HO.LAB 08:52
PROVIDERS: PCP Internal Medicine; Visit Provider Advanced Practice Midwife
DX: Z01.419 Encounter for gynecological examination (general) (routine) without abnormal findings (principal); N92.6 Irregular menstruation, unspecified; N95.1 Menopausal and female climacteric states; B37.31 Acute candidiasis of vulva and vagina; Z20.2 Contact with and (suspected) exposure to infections with a predominantly sexual mode of transmission; E11.42 Type 2 diabetes mellitus with diabetic polyneuropathy; E66.9 Obesity, unspecified; Z86.018 Personal history of other benign neoplasm; Z87.42 Personal history of other diseases of the female genital tract; Z79.4 Long term (current) use of insulin
CPT/HCPCS: 0353U; 58100; 81025; 87480; 87510; 87624; 87660; 88142; 99212

== ENCOUNTER 2023-04-11 14:36 | Outpatient (REF) | payer OTHER, SELFPAY | END 2023-04-11 14:37 | disposition home or self-care (01) | LOC: HO.LNP 14:36 | PROVIDERS: Visit Provider Advanced Practice Midwife | DX: N93.9 Abnormal uterine and vaginal bleeding, unspecified (principal) | CPT/HCPCS: 88305 ==

== ENCOUNTER 2023-04-22 09:54 | Outpatient (AMB) | payer OTHER, SELFPAY ==
[2023-04-22 09:56] VITALS: BP 156/78; BMI 34.8
--- NOTE | 2023-04-22 09:56 | MHC.OFFVIS ---
Intake Vital Signs 04/22/23 09:56 Height 5 ft 9 in Weight 236 lb BMI 34.8 BP 156/78 H Intake Visit Reasons: F/U,EMB result,Per Huber Pardo Allergies adhesive tape [ADHESIVE TAPE] Allergy (Intermediate, Verified 04/22/23 09:56) RASH pioglitazone [From ACTOS] Allergy (Intermediate, Verified 04/22/23 09:56) facial edema,rash latex Allergy (Mild, Verified 04/22/23 09:56) Rash Medication List - Last Reconciled 04/22/23 by Huber Bowles CNM acetaminophen (Tylenol Extra Strength) 500 mg PO Q6H PRN albuterol sulfate 90 mcg/actuation 1 inh inhalation QID PRN albuterol sulfate 2.5 mg (3 mL) inhalation QID PRN 25 days artifi.tears(hypromellose)(PF) 0.3% 1 drp ophthalmic-Right Q4-6H PRN ascorbate calcium (vitamin C) 500 mg PO DAILY benzonatate 100 mg PO BID PRN 5 days blood sugar diagnostic (FreeStyle Lite Strips) TEST 4 TIMES DAILY blood-glucose meter (FreeStyle Lite Meter kit) TEST 4 TIMES DAILY buspirone 1 tab PO TID buspirone 15 mg PO TID canagliflozin (Invokana) 300 mg PO DAILY cane As directed cetirizine (Zyrtec) 10 mg PO DAILY 90 days cholecalciferol (vitamin D3) 50 mcg PO DAILY citalopram 10 mg PO DAILY cyanocobalamin (vitamin B-12) 1,000 mcg PO DAILY cyclobenzaprine 5 mg PO Q8H PRN 5 days cyclobenzaprine 10 mg PO TID PRN diclofenac sodium 75 mg PO BID docusate sodium 100 mg PO DAILY ferrous sulfate 325 mg PO DAILY fluconazole 150 mg PO Q3D 2 doses fluconazole 150 mg PO Q3D 2 doses fluticasone propionate 50 mcg/actuation (Flonase Allergy Relief) 1 spray intranasal DAILY 30 days furosemide 20 mg PO BID 90 days gabapentin 100 mg PO TID 30 days hydrocortisone 2.5% (Proctozone-HC) 1 appl ME BID PRN hydrocortisone-pramoxine 1-1 % (Proctofoam HC) 1 appl ME DAILY hydroxyzine HCl 1 - 2 tabs PO QID ibuprofen 400 mg PO TID PRN insulin regular hum U-500 conc (Humulin R U-500 (Concentrated) Insulin) Infuse up to 300 units per day via insulin pump subcutaneously; insulin syringe-needle U-100 (Advocate Syringes) Use 1 needle once a month lidocaine 5% (Lidoderm) 1 patch topical DAILY PRN MDD remove after 12 hours lisinopril 10 mg PO DAILY methylcellulose (laxative) (Citrucel Sugar Free oral powder) 2 grams PO DAILY PRN miconazole nitrate 2% (Miconazole-7) 1 appful vaginal BEDTIME 7 days montelukast 10 mg PO DAILY 90 days nebulizers (AeroEclipse II Nebulizer) As directed nortriptyline 10 mg PO BEDTIME ondansetron 4 mg PO Q6-8H PRN oxycodone-acetaminophen 5-325 mg 1 tab PO Q8H PRN 30 days pantoprazole 40 mg PO DAILY 30 days prochlorperazine maleate 10 mg PO TID PRN rosuvastatin 10 mg PO DAILY Shower Chair As directed simethicone (Gas Relief Extra Strength) 125 mg PO TID-QID PRN syringe with needle, safety (BD Safety-Jone Detachable Needle) Use 1 syringe once a month thiamine HCl (vitamin B1) 1 tab PO DAILY tirzepatide (Mounjaro) 2.5 mg (0.5 mL) subcut QWEEK 4 weeks tizanidine 4 mg PO Q8H PRN 30 days vitamin A 1 cap PO DAILY Is last menstrual period known: No (unsure date) Do you need a note to return to daycare/school/sports/work: No HPI F/U,EMB result,Per Huber OAscencion HPI Details This is a visit to review patient's endometrial biopsy results that were done last week. 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) use of insulin Diabetic nephropathy associated with type 2 diabetes mellitus Diabetic retinopathy associated with type 2 diabetes mellitus Diabetic polyneuropathy associated with type 2 diabetes mellitus Iron (Fe) deficiency anemia History of Graves' disease Lumbar degenerative disc disease Back pain Anxiety and depression GERD (gastroesophageal reflux disease) Asthma Hyperlipidemia Hypertension Diabetes mellitus Polyarthralgia Surgical History History of carpal tunnel surgery of right wrist H/O endoscopy History of cataract extraction History of lumpectomy of left breast History of carpal tunnel surgery of left wrist Hx of section Hx laparoscopic cholecystectomy Hx of esophagogastroduodenoscopy Hx of colonoscopy H/O gastric bypass Family History Father Diabetes Hypertension Mother Diabetes Hypertension Maternal Grandmother Colon cancer Paternal Aunt Cancer of ear Social History Household Members: Family Housing: House Alcohol intake: never Patient Tobacco Use Status: Former Tobacco user Quit Date: 2013 Tobacco use type: Cigarette Cigarette Packs Per Day: 1 Cigarettes Per Day: 20.0 Years Smoked: 20 e-Cigarette/Vaping Use: Never Used Second Hand Smoke Exposure: No service: No Current occupational status: disabled Current occupation: right hand dominant Cognitive needs: No Hearing needs: No Vision needs: Yes Female Reproductive History Menstrual Age of Menarche: 14 Duration of menses: other control method: none Total pregnancies: 3 Full term: 1 Date of last pap smear: 02/28/23 (unsatisfactory) History of abnormal pap smear: Yes (unsure date) Physical Exam Vital Signs: Last Vital Signs BP 156/78 H 04/22/23 09:56 BMI result Body Mass Index 34.8 Results Reviewed Results Reviewed: me: Augie Fonseca,Anitha Age/Sex: 48/F Attending: Huber Bowles CNM : 1975 Submitted by: Huber Bowles CNM Copies to: MR #: [id number] Status: DEP REF Collected: 04/11/23 Location: [facility] Received: 04/11/23 Diagnosis Endometrium, biopsy: Benign disordered proliferative endometrium with breakdown; no atypia or carcinoma. Clinical History AUB Microscopic Description Microscopic sections reviewed. Material Received EMB Gross Description Received in formalin is a 1.5 cc aggregate of kam-brown spongy soft tissue and admixed clotted blood, totally submitted in cassette A1. (DTL) NOTE: Unless otherwise stated, all tissue is formalin-fixed and paraffin-embedded. Some or all of the immunohistochemical tests reported herein may have been developed and their performance characteristics determined by [facility]. They have not been cleared or approved by the U.S. Food and Drug Administration (FDA). However, the FDA has determined that such clearance or approval is not necessary. This laboratory is certified under the Clinical Laboratory Improvement Amendments of 1988 (CLIA) as qualified to perform high complexity clinical laboratory testing. Electronically Signed By: Shabana Orr 04/15/23 5040 Patient: Anitha Dean Age/Sex: 48/F MR#: [id number] Page 1 of 1 Assessment & Plan Assessment & Plan (1) Perimenopausal symptoms: Code(s): N95.1 - Menopausal and female climacteric states (2) History of irregular menstrual bleeding: Code(s): Z87.42 - Personal history of other diseases of the female genital tract (3) Missed menses: Code(s): N92.6 - Irregular menstruation, unspecified (4) control counseling: Comment: Has not been contracepting; states she has reaction to condoms. Recommend no unprotected sex until endometrial biopsy is done and I am recommending Mirena after that. Code(s): Z30.09 - Encounter for other general counseling and advice on contraception (5) T2DM (type 2 diabetes mellitus): Code(s): E11.9 - Type 2 diabetes mellitus without complications Qualifiers: Diabetes mellitus nursing home insulin use: with nursing home use Diabetes mellitus complication status: with hyperglycemia Qualified Code(s): E11.65 - Type 2 diabetes mellitus with hyperglycemia; Z79.4 - nursing home (current) use of insulin Plan Reviewed her endometrial biopsy findings with her which were negative and re reassuring. The Pap smear is not back yet. Reviewed that we had discussed previously possibly inserting a Mirena if the endometrial findings were negative which they are. She is in agreement with this plan. She says her diabetes is pretty good in her health is pretty good right now. We discussed insertion of the Mirena it would be most optimal to inserted on the heaviest day of her. Her periods tend to be 1 month coming 1 month not there at this point and they are heaviest on day 3 and not very heavy on the other days so we will do our best to aim for the insertion on that day if at all possible. I asked her to call on the 1st day of her period and we will do our best to schedule it thusly. She has no further questions. She is continuing all her best efforts to keep her self as healthy as she can. Pap smear still pending. Coding Level of Care Code Est Pt Level 3 (33023) Diagnoses Perimenopausal symptoms N95.1 History of irregular menstrual bleeding Z87.42 Missed menses N92.6 control counseling Z30.09 Type 2 diabetes mellitus with hyperglycemia, with long-term current use of insulin E11.65; Z79.4 Diabetes mellitus moth exterminator insulin use: with moth exterminator use Diabetes mellitus complication status: with hyperglycemia
== END 2023-04-22 10:43 | disposition home or self-care (01) ==
LOC: HO.HWSM 09:55
PROVIDERS: PCP Internal Medicine; Visit Provider Advanced Practice Midwife
DX: N95.1 Menopausal and female climacteric states (principal); Z87.42 Personal history of other diseases of the female genital tract; N92.6 Irregular menstruation, unspecified; Z30.09 Encounter for other general counseling and advice on contraception; E11.65 Type 2 diabetes mellitus with hyperglycemia; Z79.4 Long term (current) use of insulin
CPT/HCPCS: 99213

== ENCOUNTER → 2023-04-22 09:54 | Outpatient (BNVA) | payer OTHER, SELFPAY | PROVIDERS: PCP Internal Medicine; Visit Provider Advanced Practice Midwife | DX: Z30.09 Encounter for other general counseling and advice on contraception (principal); N95.1 Menopausal and female climacteric states; N92.6 Irregular menstruation, unspecified; E11.65 Type 2 diabetes mellitus with hyperglycemia; Z79.4 Long term (current) use of insulin; Z87.42 Personal history of other diseases of the female genital tract | CPT/HCPCS: 99212 ==

== ENCOUNTER 2023-04-28 08:59 | Outpatient (AMB) | payer OTHER, SELFPAY ==
--- NOTE | 2023-04-28 09:35 | MHC.AMDMED ---
Intake Intake Visit Reasons: 60 min-confirmed Allergies adhesive tape [ADHESIVE TAPE] Allergy (Intermediate, Verified 04/22/23 09:56) RASH pioglitazone [From ACTOS] Allergy (Intermediate, Verified 04/22/23 09:56) facial edema,rash latex Allergy (Mild, Verified 04/22/23 09:56) Rash HPI Comprehensive Diabetes Asmnt Most Recent Diabetes Results: No Data to Display PFSH Medical History Physical exam Hyperlipidemia LDL goal <100 Cellulitis of toe of right foot Hospital discharge follow-up Goiter Onychomycosis Vitamin D deficiency T2DM (type 2 diabetes mellitus) Left ankle pain B12 deficiency Left leg pain Acid reflux History of colonic polyps Chronic fatigue Carpal tunnel syndrome Daytime hypersomnia Autoimmune thyroiditis Fibromyalgia Morbid obesity Spondylosis, thoracic, 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 spine without myelopathy History of ulcer disease Sessile colonic polyp Obesity 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 Diabetic nephropathy associated with type 2 diabetes mellitus Diabetic retinopathy associated with type 2 diabetes mellitus Diabetic polyneuropathy associated with type 2 diabetes mellitus Iron (Fe) deficiency anemia History of Graves' disease Lumbar degenerative disc disease Back pain Anxiety and depression GERD (gastroesophageal reflux disease) Asthma Hyperlipidemia Hypertension Diabetes mellitus Polyarthralgia Surgical History History of carpal tunnel surgery of right wrist H/O endoscopy History of cataract extraction History of lumpectomy of left breast History of carpal tunnel surgery of left wrist Hx of section Hx laparoscopic cholecystectomy Hx of esophagogastroduodenoscopy Hx of colonoscopy H/O gastric bypass Family History Father Diabetes Hypertension Mother Diabetes Hypertension Maternal Grandmother Colon cancer Paternal Aunt Cancer of ear Social History Household Members: Family Housing: House Alcohol intake: never Patient Tobacco Use Status: Former Tobacco user Quit Date: 2013 Tobacco use type: Cigarette Cigarette Packs Per Day: 1 Cigarettes Per Day: 20.0 Years Smoked: 20 e-Cigarette/Vaping Use: Never Used Second Hand Smoke Exposure: No service: No Current occupational status: disabled Current occupation: right hand dominant Cognitive needs: No Hearing needs: No Vision needs: Yes Female Reproductive History Menstrual Age of Menarche: 14 Assessment & Plan Assessment & Plan (1) Diabetes mellitus: Code(s): E11.9 - Type 2 diabetes mellitus without complications Qualifiers: Diabetes mellitus type: type 2 Diabetes mellitus group home insulin use: with group home use Diabetes mellitus complication status: with neurologic complications Diabetes mellitus complication detail: with polyneuropathy Qualified Code(s): E11.42 - Type 2 diabetes mellitus with diabetic polyneuropathy; Z79.4 - longterm (current) use of insulin Plan Patient presents for pump training for [employer] with control IQ, and Dexcom G6 Patient uses Humulin U 500 in insulin pump The following topics were reviewed today: -T-Connect [email or web address] deya Paired patient's insulin pump with [employer] Mitus mobile deya so patient pump will upload automatically - Sensor setting (if applicable) ?? High Alert: 180 mg/dl ??? Low Alert: 80 mg/dl Patient above target 50% Patient at target 50% Patient below target 0% Patient average glucose for the past 2 weeks 270 mg/dL Patient having significant amount of postprandial hyperglycemia. Patient is getting multiple micro boluses after mealtime bolus Discussed with patient importance of bolusing at least 30 minutes prior to meals Patient was recently prescribed Mounjaro 2.5 mg, however has been unable to pick it up from the pharmacy. Patient has approval from [employer] for prescription, at this time [facility] does not have lunch [facility] available. Called [facility] pharmacy but patient's insurance is not accepted at [facility] Did not make any changes to patient's insulin pump settings at this visit, due to patient's starting new medication. Asked patient to follow-up in 6 weeks if she still has not started Mounjaro we will adjust insulin pump settings Safety information: Patient understands the basic concepts of pump therapy, how to give insulin for meals and snacks, how to troubleshoot for hyper and hypoglycemia. Setting verified by [facility] Basal rate(s) (units/hour) : 12 AM? to 5 AM? 0.5 units / hr 5 AM? to 12 PM? 0.5 units / hr 12 PM to 5 PM 0.725 units / hr 5 PM to 12 AM 0.8 units / hr? Bolus setting Insulin Carbohydrate Ratio (s) 12 AM? to 12 AM? 1:6 5PM to 12 AM 1:6 Correction Factor / Sensitivity Factor 12 AM? to 12 AM? 1:40 Active Insulin Time:? 4 hours Target(s): Control IQ 12 AM? to 12 AM? 110 mg/dL Patient Instructions: Use rule of 15s to treat hypoglycemia Follow-up with community educator in 6 months Coding Level of Care Code Est Pt Level 1 (48333) Diagnoses Type 2 diabetes mellitus with diabetic polyneuropathy, with long-term current use of insulin E11.42; Z79.4 Diabetes mellitus type: type 2 Diabetes mellitus long term care administrator insulin use: with long term care administrator use Diabetes mellitus complication status: with neurologic complications Diabetes mellitus complication detail: with polyneuropathy
== END 2023-04-28 09:54 | disposition home or self-care (01) ==
PROVIDERS: PCP Internal Medicine; Visit Provider Registered Nurse Diabetes Educator
DX: E11.42 Type 2 diabetes mellitus with diabetic polyneuropathy (principal); Z79.4 Long term (current) use of insulin

== ENCOUNTER → 2023-04-28 08:59 | Outpatient (BNVA) | payer OTHER, SELFPAY | PROVIDERS: PCP Internal Medicine; Visit Provider Registered Nurse Diabetes Educator | DX: Z46.81 Encounter for fitting and adjustment of insulin pump (principal); E11.42 Type 2 diabetes mellitus with diabetic polyneuropathy; Z79.4 Long term (current) use of insulin | CPT/HCPCS: 99211 ==

== ENCOUNTER 2023-05-02 14:50 | Outpatient (REF) | payer OTHER, SELFPAY ==
--- NOTE | ~2023-05-02 | MM_ITS ---
EXAMINATION: MM DIAGNOSTIC DIGITAL MAMMOGRAPHY, LEFT CLINICAL INFORMATION: Diagnostic for follow-up grouped calcifications in the upper inner quadrant of the left breast at anterior depth seen on screening exam. COMPARISON: Mammography: 03/25/2023, 03/01/2022, 02/26/2021, 02/23/2020, and dating back to 2018. TECHNIQUE: Digital mammography is performed in the following views: 2-D spot magnification views left CC, and left ML x2. FINDINGS: There are scattered areas of fibroglandular density (ACR BI-RADS breast composition Category b). Spot magnification views of the grouped calcifications in the anterior left breast, slightly upper inner quadrant layer clearly on the mediolateral projection and are consistent with milk of calcium. These are benign. In retrospect, they have remained unchanged from 02/26/2021. There are skin calcifications in the inframammary fold. There is an inferior medial posterior biopsy clip from prior benign biopsy. There are no new suspicious findings in the left breast. Results are provided to the patient at time of visit by the technologist. MM/MM added views LT IMPRESSION: No evidence of malignancy in the left breast. Grouped calcifications in the anterior left breast, slightly upper inner quadrant, layer and are consistent with benign milk of calcium. In retrospect they are unchanged from 02/26/2021. No further follow-up recommended. Recommend the patient return to routine annual screening. ASSESSMENT: BI-RADS BI-RADS 2 - Benign Findings RECOMMENDATION: 1 year F/U This patient's information was entered into a reminder system with a target due date for their next mammogram.
== END 2023-05-02 14:51 | disposition home or self-care (01) ==
LOC: HO.MAMMO 14:50
PROVIDERS: PCP Internal Medicine; Visit Provider Internal Medicine
DX: R92.1 Mammographic calcification found on diagnostic imaging of breast (principal)
CPT/HCPCS: 77065

== ENCOUNTER → 2023-05-02 15:00 | Outpatient (BNV) | payer OTHER, SELFPAY | PROVIDERS: PCP Internal Medicine; Visit Provider Radiology Diagnostic Radiology | DX: R92.1 Mammographic calcification found on diagnostic imaging of breast (principal); R92.322 Mammographic fibroglandular density, left breast | CPT/HCPCS: 77065 ==

== ENCOUNTER 2023-05-24 07:47 | Outpatient (REF) | payer OTHER, SELFPAY ==
[2023-05-24 08:16] LABS: MANUAL DIFF FLAG NO
[2023-05-24 08:41] LABS: Basophils Percent Auto 0.6 % (0-2); Eosinophils Absolute Auto 0.2 X10*3/uL (0.0-0.4); Eosinophils Percent Auto 2.4 % (0-4); Hematocrit 35.9 % (37.0-47.0); Hemoglobin 11.4 g/dl (12.0-16.0); Imm Gran Abs Auto 0.02 X10*3/uL (0.00-0.03); Imm Gran Pct Auto 0.3 % (0.0-0.4); Lymphocytes Absolute Auto 1.4 X10*3/uL (1.2-4.9); Lymphocytes Percent Auto 22.1 % (20-40); Mean Corpuscular HGB Conc 31.8 g/dl (31.0-35.0); Mean Corpuscular Hemoglobin 23.8 pg (27.0-33.0); Mean Corpuscular Volume 74.9 fL (80.0-98.0); Mean Platelet Volume 9.9 fL (9.4-12.3); Monocytes Absolute Auto 0.6 X10*3/uL (0.1-1.2); Monocytes Percent Auto 9.8 % (2-11); Neutrophils Absolute Auto 4.1 x10*3/uL (2.0-8.3); Neutrophils Percent Auto 64.8 % (45-73); Platelet Count 273 X10*3/uL (160-400); Red Blood Count 4.79 X10*6/uL (4.20-5.50); Red Cell Distribution Width 16.2 % (11.0-16.0); White Blood Count 6.3 X10*3/uL (4.8-10.8)
[2023-05-24 09:25] LABS: Alanine Aminotransferase 31 U/L (0-31); Albumin Level 4.1 g/dL (3.5-5.0); Alkaline Phosphatase 127 U/L (39-117); Anion Gap 13 (12-20); Aspartate Amino Transferase 23 U/L (5-31); Bilirubin Total 0.3 mg/dL (0.0-1.0); Blood Urea Nitrogen 13 mg/dL (9-16); Calcium 9.4 mg/dL (8.4-10.2); Carbon Dioxide 25 mmol/L (22-29); Chloride 103 mmol/L (96-108); Cholesterol 182 mg/dL (<200); Estimated Glomerular Filt Rate > 60; Glucose Fasting 173 mg/dL (60-99); HDL Cholesterol 73 mg/dL (>40); Iron 31 mcg/dL (30-160); LDL Cholesterol Calculated 82 mg/dL (<100); Percent Iron Saturation 7 % (15-50); Potassium 4.2 mmol/L (3.3-5.1); Sodium 137 mmol/L (135-145); Total Iron Binding Capacity 446 mcg/dL (228-428); Total Protein 7.6 g/dL (6.5-8.0); Triglycerides 138 mg/dL (<150); Unsaturated Iron Binding 415 ug/dL
[2023-05-24 09:42] LABS: Thyroid Stimulating Hormone 1.85 uIU/mL (0.32-4.0); Vitamin D 25-OH Total 11.1 ng/mL (>30)
[2023-05-24 09:48] LABS: Folate 11.4 ng/mL (> or = 4.0); Vitamin B12 212 pg/mL (200-900)
[2023-05-24 10:20] LABS: Creatinine Urine 132.66 mg/dL; Microalbum/Creatinine Ratio Ur 39.9 ug/mg cr (<30)
[2023-05-28 23:57] LABS: Vitamin A 38 mcg/dL (38-98)
[2023-05-30 12:13] LABS: Vitamin B1 7 nmol/L (8-30)
== END 2023-05-24 07:48 | disposition home or self-care (01) ==
LOC: HO.LAB 07:47
PROVIDERS: PCP Internal Medicine; Visit Provider Internal Medicine
DX: E53.8 Deficiency of other specified B group vitamins (principal); E78.5 Hyperlipidemia, unspecified; E51.9 Thiamine deficiency, unspecified; E55.9 Vitamin D deficiency, unspecified; E11.9 Type 2 diabetes mellitus without complications; E06.3 Autoimmune thyroiditis; D64.9 Anemia, unspecified; E50.9 Vitamin A deficiency, unspecified; E87.1 Hypo-osmolality and hyponatremia
CPT/HCPCS: 36415; 80053; 80061; 82043; 82306; 82570; 82607; 82746; 83540; 84425; 84443; 84590; 85025

== ENCOUNTER 2023-05-26 08:00 | Outpatient (AMB) | payer OTHER, SELFPAY ==
[2023-05-26 08:09] VITALS: BP 160/82; BMI 35.1
--- NOTE | 2023-05-26 08:09 | A.OFFPC_ITS ---
Vital Signs 05/26/23 08:09 05/26/23 10:03 Height 5 ft 9 in Weight 238 lb BMI 35.1 BP 160/82 H 160/80 H Blood Pressure Location Lt brachial Lt brachial Position Sitting Sitting Intake Visit Reasons: dm Intake Note: Patient here for a follow up BP, c/o dry hands and ? over bone on neck Transit Mix Operator Required: No Accompanied by: Self / Same As Patient Allergies adhesive tape [ADHESIVE TAPE] Allergy (Intermediate, Verified 05/26/23 08:24) RASH pioglitazone [From ACTOS] Allergy (Intermediate, Verified 05/26/23 08:24) facial edema,rash latex Allergy (Mild, Verified 05/26/23 08:24) Rash Medication List - Last Reconciled 05/26/23 by Analilia Schumacher MD acetaminophen (Tylenol Extra Strength) 500 mg PO Q6H PRN albuterol sulfate 90 mcg/actuation 1 inh inhalation QID PRN albuterol sulfate 2.5 mg (3 mL) inhalation QID PRN 25 days artifi.tears(hypromellose)(PF) 0.3% 1 drp ophthalmic-Right Q4-6H PRN ascorbate calcium (vitamin C) 500 mg PO DAILY blood sugar diagnostic (FreeStyle Lite Strips) TEST 4 TIMES DAILY blood-glucose meter (FreeStyle Lite Meter kit) TEST 4 TIMES DAILY buspirone 1 tab PO TID buspirone 15 mg PO TID canagliflozin (Invokana) 300 mg PO DAILY cane As directed cetirizine (Zyrtec) 10 mg PO DAILY 90 days cholecalciferol (vitamin D3) 50 mcg PO DAILY citalopram 10 mg PO DAILY cyanocobalamin (vitamin B-12) 1,000 mcg PO DAILY cyclobenzaprine 5 mg PO Q8H PRN 5 days cyclobenzaprine 10 mg PO TID PRN diclofenac sodium 75 mg PO BID docusate sodium 100 mg PO DAILY ferrous sulfate 325 mg PO DAILY fluticasone propionate 50 mcg/actuation (Flonase Allergy Relief) 1 spray intranasal DAILY 30 days furosemide 20 mg PO BID 90 days gabapentin 100 mg PO TID 30 days hydrocortisone 2.5% (Proctozone-HC) 1 appl MS BID PRN hydrocortisone-pramoxine 1-1 % (Proctofoam HC) 1 appl MS DAILY hydroxyzine HCl 1 - 2 tabs PO QID ibuprofen 400 mg PO TID PRN insulin regular hum U-500 conc (Humulin R U-500 (Concentrated) Insulin) Infuse up to 300 units per day via insulin pump subcutaneously; insulin syringe-needle U-100 (Advocate Syringes) Use 1 needle once a month lidocaine 5% (Lidoderm) 1 patch topical DAILY PRN MDD remove after 12 hours lisinopril 10 mg PO DAILY methylcellulose (laxative) (Citrucel Sugar Free oral powder) 2 grams PO DAILY PRN montelukast 10 mg PO DAILY 90 days nebulizers (AeroEclipse II Nebulizer) As directed nortriptyline 10 mg PO BEDTIME ondansetron 4 mg PO Q6-8H PRN oxycodone-acetaminophen 5-325 mg 1 tab PO Q8H PRN 30 days pantoprazole 40 mg PO DAILY 30 days prochlorperazine maleate 10 mg PO TID PRN rosuvastatin 10 mg PO DAILY Shower Chair As directed simethicone (Gas Relief Extra Strength) 125 mg PO TID-QID PRN syringe with needle, safety (BD Safety-Jone Detachable Needle) Use 1 syringe once a month thiamine HCl (vitamin B1) 1 tab PO DAILY tirzepatide (Mounjaro) 2.5 mg (0.5 mL) subcut QWEEK 4 weeks tizanidine 4 mg PO Q8H PRN 30 days vitamin A 1 cap PO DAILY Tobacco use date assessed: 05/26/23 Dental Screening Dental Screen Date: 05/26/23 Did you have a dental visit in the last 12 months?: Yes Did you have a dental problem in the last 6 months where you did not have access to dental care?: No Was dental information given to patient?: Patient has dentist HPI HPI Comments History of Present Illness Details This is a 48-year-old female with diabetes mellitus type 2 on long-term current use of insulin, hypertension, hyperlipidemia and low vitamin-D that comes today for follow-up on her conditions. Blood pressure elevated today and will be recheck in 3 weeks by nurse navigator. She said she just took her lisinopril. A1c has improved but still elevated and this is follow by Endocrinology. LDL not on goal and I will increase rosuvastatin. Vitamin-D very low and I will increase vitamin-D. Denies any chest pain or shortness of breath. She also has moderate major depression stable with citalopram. She also has autoimmune thyroiditis and TSH was ordered. 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 Diabetic nephropathy associated with type 2 diabetes mellitus Diabetic retinopathy associated with type 2 diabetes mellitus Diabetic polyneuropathy associated with type 2 diabetes mellitus Iron (Fe) deficiency anemia History of Graves' disease Lumbar degenerative disc disease Back pain Anxiety and depression GERD (gastroesophageal reflux disease) Asthma Hyperlipidemia Hypertension Diabetes mellitus Polyarthralgia Surgical History History of carpal tunnel surgery of right wrist H/O endoscopy History of cataract extraction History of lumpectomy of left breast History of carpal tunnel surgery of left wrist Hx of section Hx laparoscopic cholecystectomy Hx of esophagogastroduodenoscopy Hx of colonoscopy H/O gastric bypass Family History Father Diabetes Hypertension Mother Diabetes Hypertension Maternal Grandmother Colon cancer Paternal Aunt Cancer of ear Social History Household Members: Family Housing: House Alcohol intake: never Patient Tobacco Use Status: Former Tobacco user Quit Date: 2013 Tobacco use type: Cigarette Cigarette Packs Per Day: 1 Cigarettes Per Day: 20.0 Years Smoked: 20 e-Cigarette/Vaping Use: Never Used Second Hand Smoke Exposure: No service: No Current occupational status: disabled Current occupation: right hand dominant Cognitive needs: No Hearing needs: No Vision needs: Yes Female Reproductive History Menstrual Age of Menarche: 14 Questionnaire PHQ-9 Over the last 2 weeks, how often have you been bothered by any of the following problems? 1. Little interest or pleasure in doing things: several days 2. Feeling down, depressed, or hopeless: more than half the days 3. Trouble falling or staying asleep, or sleeping too much: nearly every day 4. Feeling tired or having little energy: more than half the days 5. Poor appetite or overeating: several days 6. Feeling bad about yourself - or that you are a failure or have let yourself or your family down: not at all 7. Trouble concentrating on things, such as reading the newspaper or watching television: nearly every day 8. Moving or speaking so slowly that other people could have noticed. Or the opposite - being so fidgety or restless that you have been moving around a lot more than usual: more than half the days 9. Thoughts that you would be better off or of hurting yourself in some way: not at all Total score: 14 Depression Screening Interpretation: Positive Depression Screening Follow-up: Existing condition and In treatment Depression Screening Done: Yes 57831 - PHQ-9 Billing: Yes Source: Developed by Drs. Parmjit Be, Yessi Gold, Ji Mahmood and colleagues, with an educational anni from [employer]. Thrive Questionnaire Date Thrive assessed: 05/26/23 I am a: Patient What is your living situation today?: I have a steady place to live Within the past 12 months, did the food you bought not last and you didn't have the money to get more?: Never true Within the past 12 months, did you worry whether your food would run out before you got money to buy more?: Never true Do you have trouble paying for medicines?: No Do you have trouble getting transportation to medical appointments?: No Do you have trouble paying your heating and electricity bill?: No Do you have trouble taking care of your child, family member or friend?: No Do you have trouble with day-to-day activities such as bathing, preparing meals, shopping, managing finances, etc.?: No Are you currently unemployed and looking for a job?: No Are you interested in more education?: No Please select the resources that you would like help with: None Currently or been in a relationship where the following occur: no concerns reported THRIVE Score: 0 AUDIT C Alcohol Use Questionnaire (AUDIT-C) 1. How often do you have a drink containing alcohol?: Never Total Score: 0 Score Reviewed/Action Taken: No MARCO-7 AMB Questionnaire MARCO-7 Date MARCO - 7 assessed: 05/26/23 Feeling nervous, anxious, or on edge: 3 = Nearly every day Not being able to stop or control worryin = Several days Worrying too much about different things: 3 = Nearly every day Trouble relaxin = More than half the days Being so restless that it is hard to sit still: 1 = Several days Becoming easily annoyed or irritable: 1 = Several days Feeling afraid as if something awful might happen: 1 = Several days Total MARCO-7 score (0-4 normal; 5-9 mild; 10-14 moderate; 15-21 severe): 12 Source: Developed by Drs. Parmjit Be, Yessi Gold, Ji Mahmood and colleagues, with an educational anni from [employer]. MARCO-7 Assessment Billing MARCO-7 Assessment Tool: MARCO-7 Assessment 15266 Review of Systems Const All systems reviewed & are unremarkable except as noted in HPI and below Eyes Reports no additional complaints, Denies change in vision and Denies other visual disturbances Card Denies chest pain at rest, Denies chest pain with activity, Denies edema, Denies irregular heart rhythm, Denies claudication, Denies dyspnea, Denies dyspnea on exertion, Denies orthopnea, Denies paroxysmal nocturnal dyspnea and Denies slow heart rate Resp Denies cough, Denies dyspnea and Denies dyspnea on exertion GI Denies abdominal pain, Denies change in bowel habits, Denies excessive flatus, Denies nausea and Denies vomiting Denies urinary incontinence, Denies urinary hesitancy and Denies urinary urgency Physical exam (Primary Care) Vital Signs: Last Vital Signs BP 160/80 H 05/26/23 10:03 BMI result Body Mass Index 35.1 Tobacco/Smoking Status: Tobacco use Status Tobacco use date assessed 05/26/23 05/26/23 08:17 Patient Tobacco Use Status Former Tobacco user 05/26/23 08:17 Tobacco use type Cigarette 05/26/23 08:17 e-Cigarette/Vaping Use Never Used 05/26/23 08:17 PHQ-9: PHQ-9 Score PHQ-9: Total score 14 05/26/23 10:10 Depression Screening Interpretation: Positive Depression Screening Follow-up: Existing condition and In treatment Thrive Assessment: Date of Thrive Assessment Date Thrive assessed 05/26/23 05/26/23 08:17 Currently or been in a relationship where the following occur: no concerns reported Resp Effort & Inspection: normal respiratory effort Auscultation: clear to auscultation bilaterally Cardio Jugular venous distension: no JVD Rate: regular rate Rhythm: regular rhythm Heart sounds: S1 normal heart sound present and S2 normal heart sound present Extrem General: Yes full ROM Results AMB Hemoglobin A1c AMB Hemoglobin A1c 8.9 % Last Edit by LASHONDA Alexander on 05/26/23 08:2 3 Results Reviewed Results Reviewed: Laboratory Last Values Hgb A1c (Clinic) 8.9 % (4.0-6.0) H 05/26/23 08:22 Assessment and Plan Assessment & Plan (1) T2DM (type 2 diabetes mellitus): Code(s): E11.9 - Type 2 diabetes mellitus without complications Qualifiers: Diabetes mellitus intermission coordinator insulin use: with intermission coordinator use Diabetes mellitus complication status: with hyperglycemia Qualified Code(s): E11.65 - Type 2 diabetes mellitus with hyperglycemia; Z79.4 - intermission coordinator (current) use of insulin Plan: Continue insulin. A1c goal is equal or less than 7%. (2) Hyperlipidemia LDL goal <70: Code(s): E78.5 - Hyperlipidemia, unspecified Plan: Increase rosuvastatin from 10 mg to 20 mg. LDL goal is less than 70. (3) Autoimmune thyroiditis: Code(s): E06.3 - Autoimmune thyroiditis Plan: Continue levothyroxine. Monitor TSH. (4) Hypovitaminosis D: Code(s): E55.9 - Vitamin D deficiency, unspecified [place] [address] units once a week. (5) Moderate major depression: Code(s): F32.1 - Major depressive disorder, single episode, moderate Plan: Continue citalopram. (6) Essential hypertension: Code(s): I10 - Essential (primary) hypertension Plan: Continue lisinopril. Blood pressure goal is equal or less than 130/80. Recheck blood pressure with nurse navigator in 3 weeks. Orders: Orders XR clavicle LT Today M89.8X1 - Other specified disorders of bone, shoulder Lipid Panel 4 Months E78.5 - Hyperlipidemia, unspecified Vitamin D 25-OH Total 4 Months E55.9 - Vitamin D deficiency, unspecified IRON PROFILE 4 Months D64.9 - Anemia, unspecified Complete Blood Count Auto Diff 4 Months D64.9 - Anemia, unspecified AMB Hemoglobin A1c Today E11.9 - Type 2 diabetes mellitus without complications Microalbumin, Random (w Creat) 4 Months E11.9 - Type 2 diabetes mellitus without complications Comprehensive [place]. Panel Fast 4 Months E78.5 - Hyperlipidemia, unspecified Medications: New rosuvastatin 20 mg PO DAILY 90 days 90 tabs 1RF ergocalciferol (vitamin D2) 1,250 mcg PO QWEEK 90 days 13 caps 0RF tirzepatide (Mounjaro) 5 mg (0.5 mL) subcut QWEEK 30 days 2.5 mL 0RF Discontinued rosuvastatin Discontinued Reason: No Longer Medically Relevant 10 mg PO DAILY 90 tabs 1RF tirzepatide (Mounjaro) Discontinued Reason: Order 2.5 mg (0.5 mL) subcut QWEEK 4 weeks 2 mL 5RF cholecalciferol (vitamin D3) Discontinued Reason: Patient Completed Course 50 mcg PO DAILY 90 caps 3RF E55.9 - Vitamin D deficiency, unspecified Coding Level of Care Code Est Pt Level 4 (57621) Diagnoses Type 2 diabetes mellitus with hyperglycemia, with long-term current use of insulin E11.65; Z79.4 Diabetes mellitus fci insulin use: with intermission coordinator use Diabetes mellitus complication status: with hyperglycemia Hyperlipidemia LDL goal <70 E78.5 Autoimmune thyroiditis E06.3 Hypovitaminosis D E55.9 Moderate major depression F32.1 Essential hypertension I10 Additional Codes MARCO-7 Assessment Billing - MARCO-7 Assessment Tool: MARCO-7 Assessment 44299 ([id number]) Time Spent (min) 24
[2023-05-26 10:03] VITALS: BP 160/80
== END 2023-05-26 08:32 | disposition home or self-care (01) ==
PROVIDERS: PCP Internal Medicine; Visit Provider Internal Medicine
DX: E11.65 Type 2 diabetes mellitus with hyperglycemia (principal); Z79.4 Long term (current) use of insulin; E78.5 Hyperlipidemia, unspecified; E06.3 Autoimmune thyroiditis; E55.9 Vitamin D deficiency, unspecified; I10 Essential (primary) hypertension
CPT/HCPCS: 83036; 99214

== ENCOUNTER 2023-05-26 08:45 | Outpatient (REF) | payer OTHER, SELFPAY ==
--- NOTE | ~2023-05-26 | XR_ITS ---
EXAMINATION: XR CLAVICLE, LEFT CLINICAL INFORMATION: Medial left clavicular pain. COMPARISON: Left shoulder radiographs dated 05/11/2022. TECHNIQUE: Straight AP and cephalad angulated AP views of the left clavicle. FINDINGS: The clavicle is intact. The bones and soft tissues are normal. No fracture. Acromioclavicular joint alignment is anatomic. There is calcific tendinitis of the left rotator cuff insertion. XR/XR clavicle LT IMPRESSION: 1. Normal left clavicle. 2. There is calcific tendinitis of the left rotator cuff insertion.
== END 2023-05-26 08:46 | disposition home or self-care (01) ==
LOC: HO.XRAY 08:45
PROVIDERS: PCP Internal Medicine; Visit Provider Internal Medicine
DX: M89.8X1 Other specified disorders of bone, shoulder (principal)
CPT/HCPCS: 73000

== ENCOUNTER 2023-06-10 08:57 | Outpatient (AMB) | payer OTHER, SELFPAY ==
--- NOTE | 2023-06-10 09:17 | MHC.AMDMED ---
Intake Vital Signs 06/10/23 09:20 Weight 235 lb 6 oz Intake Visit Reasons: DM30 min Allergies adhesive tape [ADHESIVE TAPE] Allergy (Intermediate, Verified 05/26/23 08:24) RASH pioglitazone [From ACTOS] Allergy (Intermediate, Verified 05/26/23 08:24) facial edema,rash latex Allergy (Mild, Verified 05/26/23 08:24) Rash HPI Comprehensive Diabetes Asmnt Most Recent Diabetes Results: Hemoglobin A1c 8.3 % 05/14/18 Microalb/Creat Ratio 39.9 ug/mg cr (<30) H 05/24/23 Cholesterol 182 mg/dL (<200) 05/24/23 HDL Cholesterol 73 mg/dL (>40) 05/24/23 Triglycerides 138 mg/dL (<150) 05/24/23 Creatinine 0.70 mg/dL (0.5-1.4) 05/24/23 Blood Urea Nitrogen 13 mg/dL (9-16) 05/24/23 Sodium 137 mmol/L (135-145) 05/24/23 Potassium 4.2 mmol/L (3.3-5.1) 05/24/23 Chloride 103 mmol/L (96-108) 05/24/23 Carbon Dioxide 25 mmol/L (22-29) 05/24/23 Calcium 9.4 mg/dL (8.4-10.2) 05/24/23 AST 23 U/L (5-31) 05/24/23 ALT 31 U/L (0-31) 05/24/23 Total Protein 7.6 g/dL (6.5-8.0) 05/24/23 Albumin 4.1 g/dL (3.5-5.0) 05/24/23 [facility] Medical History (Updated 05/26/23 @ 10:52 by Analilia Schumacher MD) Physical exam Cellulitis of toe of right foot Hospital discharge follow-up Goiter Onychomycosis Vitamin D deficiency T2DM (type 2 diabetes mellitus) Left ankle pain B12 deficiency Left leg pain Acid reflux History of colonic polyps Chronic fatigue Carpal tunnel syndrome Daytime hypersomnia Autoimmune thyroiditis Fibromyalgia Morbid obesity Spondylosis, thoracic, 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 spine without myelopathy History of ulcer disease Sessile colonic polyp Obesity Tracee's disease diet aide (current) use of insulin Diabetic nephropathy associated with type 2 diabetes mellitus Diabetic retinopathy associated with type 2 diabetes mellitus Diabetic polyneuropathy associated with type 2 diabetes mellitus Iron (Fe) deficiency anemia History of Graves' disease Lumbar degenerative disc disease Back pain Anxiety and depression GERD (gastroesophageal reflux disease) Asthma Hyperlipidemia Hypertension Diabetes mellitus Polyarthralgia Surgical History History of carpal tunnel surgery of right wrist H/O endoscopy History of cataract extraction History of lumpectomy of left breast History of carpal tunnel surgery of left wrist Hx of section Hx laparoscopic cholecystectomy Hx of esophagogastroduodenoscopy Hx of colonoscopy H/O gastric bypass Family History Father Diabetes Hypertension Mother Diabetes Hypertension Maternal Grandmother Colon cancer Paternal Aunt Cancer of ear Social History Household Members: Family Housing: House Alcohol intake: never Patient Tobacco Use Status: Former Tobacco user Quit Date: 2013 Tobacco use type: Cigarette Cigarette Packs Per Day: 1 Cigarettes Per Day: 20.0 Years Smoked: 20 e-Cigarette/Vaping Use: Never Used Second Hand Smoke Exposure: No service: No Current occupational status: disabled Current occupation: right hand dominant Cognitive needs: No Hearing needs: No Vision needs: Yes Female Reproductive History Menstrual Age of Menarche: 14 Assessment & Plan Assessment & Plan (1) Diabetic retinopathy associated with type 2 diabetes mellitus: Code(s): E11.319 - Type 2 diabetes mellitus with unspecified diabetic retinopathy without macular edema Plan: Patient presents for pump training for [facility] with control IQ, and Dexcom G6 Patient uses Humulin U 500 in insulin pump The following topics were reviewed today: -T-[employer]ya Paired patient's insulin pump with T connect mobile deya so patient pump will upload automatically - Sensor setting (if applicable) ?? High Alert: 180 mg/dl ??? Low Alert: 80 mg/dl Patient above target 76% Patient at target 23% Patient below target 1% Patient average glucose for the past 2 weeks 234 mg/dL Patient having significant amount of postprandial hyperglycemia. Patient is getting multiple micro boluses after mealtime bolus Discussed with patient importance of bolusing at least 30 minutes prior to meals, with improvement after starting Mounjaro we will hold off on adjusting insulin doses Patient had A1c drawn at PCP visit on 05/26/2023, A1c result 8.9%, down from 11 % in February 2023 Patient has now started Mounjaro 2.5 mg, average glucose has improved from 270 mg/dL to 234 mg/dL. Patient is waiting on prescription for Mounjaro 5 mg, to be approved. pump settings Safety information: Patient understands the basic concepts of pump therapy, how to give insulin for meals and snacks, how to troubleshoot for hyper and hypoglycemia. Setting verified by [facility] Basal rate(s) (units/hour) : 12 AM? to 5 AM? 0.5 units / hr 5 AM? to 12 PM? 0.5 units / hr 12 PM to 5 PM 0.725 units / hr 5 PM to 12 AM 0.8 units / hr? Bolus setting Insulin Carbohydrate Ratio (s) 12 AM? to 5 AM? 1:7 5 AM to 12 AM 1:6 Correction Factor / Sensitivity Factor 12 AM? to 12 AM? 1:40 Active Insulin Time:? 4 hours Target(s): Control IQ 12 AM? to 12 AM? 110 mg/dL Patient Instructions: Use rule of 15s to treat hypoglycemia Follow-up with clinical staff educator in 3 months Coding Level of Care Code Est Pt Level 1 (66010) Diagnoses Diabetic retinopathy associated with type 2 diabetes mellitus E11.319
== END 2023-06-10 09:21 | disposition home or self-care (01) ==
PROVIDERS: PCP Internal Medicine; Visit Provider Registered Nurse Diabetes Educator
DX: E11.319 Type 2 diabetes mellitus with unspecified diabetic retinopathy without macular edema (principal)

== ENCOUNTER → 2023-06-10 08:57 | Outpatient (BNVA) | payer OTHER, SELFPAY | PROVIDERS: PCP Internal Medicine; Visit Provider Registered Nurse Diabetes Educator | DX: Z46.81 Encounter for fitting and adjustment of insulin pump (principal); E11.319 Type 2 diabetes mellitus with unspecified diabetic retinopathy without macular edema; Z79.4 Long term (current) use of insulin | CPT/HCPCS: 99211 ==

== ENCOUNTER → 2023-07-04 13:00 | Outpatient (REF) | payer OTHER, SELFPAY ==
--- NOTE | 2023-07-04 13:17 | ECG_ITS ---
Test Reason : PREOP Blood Pressure : / mmHG Vent. Rate : 070 BPM Atrial Rate : 070 BPM P-R Int : 164 ms QRS Dur : 090 ms QT Int : 392 ms P-R-T Axes : 054 061 042 degrees QTc Int : 423 ms Normal sinus rhythm with sinus arrhythmia Normal ECG When compared with ECG of 22-JAN-2023 10:30, No significant change was found Referred By: Analilia Schumacher Electronically Signed By:Mekhi Simon
== END ==
LOC: HO.CARD 13:00
PROVIDERS: PCP Internal Medicine; Visit Provider Internal Medicine
DX: R07.9 Chest pain, unspecified (principal)
CPT/HCPCS: 93005

== ENCOUNTER → 2023-07-04 13:17 | Outpatient (BNV) | payer OTHER, SELFPAY | PROVIDERS: PCP Internal Medicine; Visit Provider Internal Medicine Cardiovascular Disease | DX: I49.9 Cardiac arrhythmia, unspecified (principal) | CPT/HCPCS: 93010 ==

== ENCOUNTER 2023-07-23 19:47 | Emergency (ER) | payer OTHER, SELFPAY ==
[2023-07-23 19:53] VITALS: BP 145/76; PULSE 87; RESP 18; TEMP 36.6; O2SAT 97; BMI 31.4
[2023-07-23 21:12] VITALS: BP 153/71; PULSE 77; RESP 18; TEMP 36.4; O2SAT 100
--- NOTE | 2023-07-23 21:35 | ED_ITS ---
HPI - Skin/Abscess/Foreign Bdy General Chief complaint: Skin/Abscess/Foreign Body Stated complaint: head itching, ear ache, possibly allergies Time Seen by Provider: 07/23/23 21:30 Source: patient Mode of arrival: ambulatory Limitations: no limitations History of Present Illness ED Provider: tavares MEDINA narrative: Patient noticed vesicular rash at the base of the right neck for last 3 days w ith pain and burning sensation pain started a week ago and now she noticed the rash Related Data Home Medications ?Medication ?Instructions ?Recorded ?Confirmed artifi.tears(hypromellose)(PF) 0.3 1 drp ophthalmic-Right Q4-6H PRN 12/10/19 05/26/23 % eye drops Dry Eyes diclofenac sodium 75 mg 75 mg PO BID 12/10/19 05/26/23 tablet,delayed release docusate sodium 100 mg capsule 100 mg PO DAILY 12/10/19 05/26/23 nortriptyline 10 mg capsule 10 mg PO BEDTIME 12/10/19 05/26/23 buspirone 10 mg tablet 1 tab PO TID 12/31/19 05/26/23 hydroxyzine HCl 25 mg tablet 1 - 2 tab PO QID 12/31/19 05/26/23 thiamine HCl (vitamin B1) 100 mg 1 tab PO DAILY 12/31/19 05/26/23 tablet vitamin A 3,000 mcg (10,000 unit) 1 cap PO DAILY 12/31/19 05/26/23 capsule citalopram 10 mg tablet 10 mg PO DAILY 08/28/22 05/26/23 buspirone 15 mg tablet 15 mg PO TID 01/02/23 05/26/23 Previous Rx's ?Medication ?Instructions ?Recorded cane #1 ea 07/31/20 syringe with needle, safety 3 mL #1 ea 01/25/21 25 gauge x 5/8 (BD Safety-Jone Detachable Needle) albuterol sulfate 90 mcg/actuation 1 inh inhalation QID PRN shortness 03/04/21 aerosol inhaler of breath or wheezing #8.5 grams nebulizers (AeroEclipse II #1 ea 03/04/21 Nebulizer) Shower Chair #1 ea 12/28/21 methylcellulose (laxative) 2 g PO DAILY PRN constipation #479 12/31/21 (Citrucel Sugar Free oral powder) grams fluticasone propionate 50 1 spray intranasal DAILY 30 days 02/25/22 mcg/actuation nasal #16 grams spray,suspension (Flonase Allergy Relief) albuterol sulfate 2.5 mg/3 mL 2.5 mg (3 mL) inhalation QID PRN 03/07/22 (0.083 %) solution for nebulization shortness of breath or wheezing 25 days #180 mL hydrocortisone 2.5 % topical cream 1 appl NE BID PRN hemorrhoids #30 04/22/22 with perineal applicator grams (Proctozone-HC) tizanidine 4 mg tablet 4 mg PO Q8H PRN muscle spasticity 05/08/22 30 days #90 tabs ibuprofen 400 mg tablet 400 mg PO TID PRN fever or pain 05/31/22 #30 tabs ondansetron 4 mg disintegrating 4 mg PO Q6-8H PRN nausea and 05/31/22 tablet vomiting #14 tabs ascorbate calcium (vitamin C) 500 500 mg PO DAILY #60 tabs 06/14/22 mg tablet ferrous sulfate 325 mg (65 mg 325 mg PO DAILY #60 tabs 06/14/22 iron) tablet acetaminophen 500 mg tablet 500 mg PO Q6H PRN fever or pain 06/26/22 (Tylenol Extra Strength) #14 tabs cyclobenzaprine 5 mg tablet 5 mg PO Q8H PRN pain (scale score 06/26/22 7-10) 5 days #14 tabs canagliflozin 300 mg tablet 300 mg PO DAILY #30 tabs 11/06/22 (Invokana) lisinopril 10 mg tablet 10 mg PO DAILY #90 tabs 12/23/22 montelukast 10 mg tablet 10 mg PO DAILY 90 days #90 tabs 12/24/22 cyanocobalamin (vitamin B-12) 1,000 mcg PO DAILY #90 caps 01/22/23 1,000 mcg capsule cyclobenzaprine 10 mg tablet 10 mg PO TID PRN back pain #14 tabs 01/22/23 prochlorperazine maleate 10 mg 10 mg PO TID PRN nausea #10 tabs 01/22/23 tablet blood-glucose meter (FreeStyle #1 ea 01/25/23 Lite Meter kit) cetirizine 10 mg capsule (Zyrtec) 10 mg PO DAILY 90 days #90 caps 01/02/24 simethicone 125 mg chewable tablet 125 mg PO TID-QID PRN for 02/25/23 (Gas Relief Extra Strength) abdominal pain #90 tabs hydrocortisone 1 %-pramoxine 1 % 1 appl NE DAILY #10 grams 02/26/23 rectal foam (Proctofoam HC) insulin syringe-needle U-100 1 mL #100 ea 03/16/23 31 gauge x 5/16 (Advocate Syringes) furosemide 20 mg tablet 20 mg PO BID 90 days #180 tabs 03/24/23 pantoprazole 40 mg tablet,delayed 40 mg PO DAILY 30 days #30 tabs 04/17/23 release blood sugar diagnostic (FreeStyle #100 ea 05/08/23 Lite Strips) oxycodone-acetaminophen 5 mg-325 1 tab PO Q8H PRN pain 30 days #90 05/24/23 mg tablet tabs ergocalciferol (vitamin D2) 1,250 1,250 mcg PO QWEEK 90 days #13 caps 05/26/23 mcg (50,000 unit) capsule rosuvastatin 10 mg tablet 10 mg PO DAILY #90 tabs 05/26/23 insulin regular hum U-500 conc 500 See Rx Instructions subcut 05/27/23 unit/mL subcutaneous soln (Humulin .COMPLEX #80 mL R U-500 (Concentrated) Insulin) tirzepatide 5 mg/0.5 mL 5 mg (0.5 mL) subcut QWEEK 30 days 06/10/23 subcutaneous pen injector #2.5 mL (Mounjaro) gabapentin 100 mg capsule 100 mg PO TID 30 days #90 caps 06/25/23 lidocaine 5 % topical patch 1 patch topical DAILY PRN pain #30 06/25/23 (Lidoderm) ea blood pressure kit-extra large #1 ea 06/29/23 gabapentin 300 mg capsule 300 mg PO BID #30 caps 07/23/23 valacyclovir 1 gram tablet 1,000 mg PO TID #21 tabs 07/23/23 (Valtrex) Allergies Allergy/AdvReac Type Severity Reaction Status Date / Time adhesive tape [ADHESIVE TAPE] Allergy Intermediate RASH Verified 07/23/23 19:55 pioglitazone [From ACTOS] Allergy Intermediate facial Verified 07/23/23 19:55 edema,rash latex Allergy Mild Rash Verified 07/23/23 19:55 Review of Systems Review of Systems: Yes all other systems are reviewed and are negative [facility] Past Medical History Medical History (Updated 07/23/23 @ 21:48 by Bernardino Jesus MD) Physical exam Cellulitis of toe of right foot Hospital discharge follow-up Goiter Onychomycosis Vitamin D deficiency T2DM (type 2 diabetes mellitus) Left ankle pain B12 deficiency Left leg pain Acid reflux History of colonic polyps Chronic fatigue Carpal tunnel syndrome Daytime hypersomnia Autoimmune thyroiditis Fibromyalgia Morbid obesity Spondylosis, thoracic, 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 spine without myelopathy History of ulcer disease Sessile colonic polyp Obesity Tracee's disease long term (current) use of insulin Diabetic nephropathy associated with type 2 diabetes mellitus Diabetic retinopathy associated with type 2 diabetes mellitus Diabetic polyneuropathy associated with type 2 diabetes mellitus Iron (Fe) deficiency anemia History of Graves' disease Lumbar degenerative disc disease Back pain Anxiety and depression GERD (gastroesophageal reflux disease) Asthma Hyperlipidemia Hypertension Diabetes mellitus Polyarthralgia Surgical History History of carpal tunnel surgery of right wrist H/O endoscopy History of cataract extraction History of lumpectomy of left breast History of carpal tunnel surgery of left wrist Hx of section Hx laparoscopic cholecystectomy Hx of esophagogastroduodenoscopy Hx of colonoscopy H/O gastric bypass Family History Family History Father Diabetes Hypertension Mother Diabetes Hypertension Maternal Grandmother Colon cancer Paternal Aunt Cancer of ear Social History Social History Household Members: Family Housing: House Alcohol intake: never Patient Tobacco Use Status: Former Tobacco user Quit Date: 2013 Tobacco use type: Cigarette Cigarette Packs Per Day: 1 Cigarettes Per Day: 20.0 Years Smoked: 20 Smoked in Last 30 Days: No e-Cigarette/Vaping Use: Never Used Second Hand Smoke Exposure: No Use of substances other than those prescribed or required for medical reasons: No Advance Directives: No Advance Directives Information Provided: No Do you have a plan to hurt others: No Plan Patient : No service: No Current occupational status: disabled Current occupation: right hand dominant Cognitive needs: No Hearing needs: No Vision needs: Yes Physical Exam Vital Signs: Vital Signs: Last Vital Signs Temp 97.6 F 07/23/23 21:12 Pulse 77 07/23/23 21:12 Resp 18 07/23/23 21:12 BP 153/71 H 07/23/23 21:12 Pulse Ox 100 07/23/23 21:12 O2 Del Method Room Air 07/23/23 21:12 BMI result Body Mass Index 31.4 Appearance: Alert. Oriented X3. No acute distress. Neck: Vesicular rash at the back of the neck on the right side Neck supple. CVS: Normal heart rate and rhythm. Pulses normal. Respiratory: No respiratory distress. Equal air entry bilateral, no wheezing/rales/rhonchi Abdomen: Soft and nontender. Bowel sounds are present, Skin: Skin warm and dry. Normal skin color. Normal skin turgor. Discharge Plan Discharge Clinical Impression: Herpes zoster Patient Disposition: Home, Self-Care Instructions: Shingles (ED) Additional Instructions: Take Medication as prescribed Follow with your PCP if not better Prescriptions: New valacyclovir [Valtrex] 1 gram tablet 1,000 mg PO TID Qty: 21 0RF gabapentin 300 mg capsule 300 mg PO BID Qty: 30 0RF No Action (DME) cane Device See Rx Instructions .ROUTE .MEDSUPPLY Qty: 1 0RF Rx Instructions: As directed (DME) BD Safety-Jone Detachable Needl 3 mL 25 gauge x 5/8 syringe See Rx Instructions .ROUTE .MEDSUPPLY Qty: 1 6RF Rx Instructions: Use 1 syringe once a month (DME) Shower Chair Misc See Rx Instructions .Route Qty: 1 0RF Rx Instructions: As directed fluticasone propionate [Flonase Allergy Relief] 50 mcg/actuation spray,suspension 1 spray intranasal DAILY 30 Days Qty: 16 1RF Rx Instructions: administer into each nostril albuterol sulfate 2.5 mg /3 mL (0.083 %) solution for nebulization 2.5 mg inhalation QID PRN (Reason: shortness of breath or wheezing) 25 Days Qty: 180 0RF tizanidine 4 mg tablet 4 mg PO Q8H PRN (Reason: muscle spasticity) 30 Days Qty: 90 8RF ferrous sulfate 325 mg (65 mg iron) tablet 325 mg PO DAILY Qty: 60 0RF ascorbate calcium (vitamin C) 500 mg tablet 500 mg PO DAILY Qty: 60 0RF Invokana 300 mg tablet 300 mg PO DAILY Qty: 30 11RF lisinopril 10 mg tablet 10 mg PO DAILY Qty: 90 4RF montelukast 10 mg tablet 10 mg PO DAILY 90 Days Qty: 90 3RF cyanocobalamin (vitamin B-12) 1,000 mcg capsule 1,000 mcg PO DAILY Qty: 90 3RF (DME) blood-glucose meter [FreeStyle Lite Meter] Kit See Rx Instructions .ROUTE .MEDSUPPLY Qty: 1 0RF Rx Instructions: TEST 4 TIMES DAILY Zyrtec 10 mg capsule 10 mg PO DAILY 90 Days Qty: 90 3RF simethicone [Gas Relief Extra Strength] 125 mg tablet,chewable 125 mg PO TID-QID PRN (Reason: for abdominal pain) Qty: 90 2RF Proctofoam HC 1-1 % foam 1 appl NE DAILY Qty: 10 3RF (DME) insulin syringe-needle U-100 [Advocate Syringes] 1 mL 31 gauge x 5/16 syringe See Rx Instructions .Route Qty: 100 2RF Rx Instructions: Use 1 needle once a month furosemide 20 mg tablet 20 mg PO BID 90 Days Qty: 180 1RF pantoprazole 40 mg tablet,delayed release (DR/EC) 40 mg PO DAILY 30 Days Qty: 30 11RF (DME) FreeStyle Lite Strips Strip See Rx Instructions .ROUTE .MEDSUPPLY Qty: 100 8RF Rx Instructions: TEST 4 TIMES DAILY oxycodone-acetaminophen 5-325 mg tablet 1 tab PO Q8H PRN (Reason: pain) 30 Days Qty: 90 0RF rosuvastatin 10 mg tablet 10 mg PO DAILY Qty: 90 1RF Humulin R U-500 (Conc) Insulin 500 unit/mL solution See Rx Instructions subcut .COMPLEX Qty: 80 5RF Rx Instructions: Infuse up to 500 units per day via insulin pump subcutaneously; Mounjaro 5 mg/0.5 mL pen injector 5 mg subcut QWEEK 30 Days Qty: 2.5 0RF lidocaine [Lidoderm] 5 % adhesive patch,medicated 1 patch topical DAILY MDD remove after 12 hours PRN (Reason: pain) Qty: 30 0RF Rx Instructions: leave on most painful area for up to 12 hrs gabapentin 100 mg capsule 100 mg PO TID 30 Days Qty: 90 1RF (DME) blood pressure kit-extra large Kit See Rx Instructions .Route Qty: 1 0RF Rx Instructions: As directed buspirone 10 mg tablet 1 tab PO TID thiamine HCl (vitamin B1) 100 mg tablet 1 tab PO DAILY vitamin A 10,000 unit capsule 1 cap PO DAILY hydroxyzine HCl 25 mg tablet 1 - 2 tab PO QID albuterol sulfate 90 mcg/actuation HFA aerosol inhaler 1 inh inhalation QID PRN (Reason: shortness of breath or wheezing) Qty: 8.5 0RF (DME) AeroEclipse II Nebulizer Misc See Rx Instructions .ROUTE .MEDSUPPLY Qty: 1 0RF Rx Instructions: As directed ibuprofen 400 mg tablet 400 mg PO TID PRN (Reason: fever or pain) Qty: 30 0RF ondansetron 4 mg tablet,disintegrating 4 mg PO Q6-8H PRN (Reason: nausea and vomiting) Qty: 14 0RF acetaminophen [Tylenol Extra Strength] 500 mg tablet 500 mg PO Q6H PRN (Reason: fever or pain) Qty: 14 0RF cyclobenzaprine 5 mg tablet 5 mg PO Q8H PRN (Reason: pain (scale score 7-10)) 5 Days Qty: 14 0RF cyclobenzaprine 10 mg tablet 10 mg PO TID PRN (Reason: back pain) Qty: 14 0RF prochlorperazine maleate 10 mg tablet 10 mg PO TID PRN (Reason: nausea) Qty: 10 0RF ergocalciferol (vitamin D2) 1,250 mcg (50,000 unit) capsule 1,250 mcg PO QWEEK 90 Days Qty: 13 0RF diclofenac sodium 75 mg tablet,delayed release (DR/EC) 75 mg PO BID artifi.tears(hypromellose)(PF) 0.3 % drops 1 drp ophthalmic-Right Q4-6H PRN (Reason: Dry Eyes) nortriptyline 10 mg capsule 10 mg PO BEDTIME docusate sodium 100 mg capsule 100 mg PO DAILY Citrucel Sugar Free Powder 2 g PO DAILY PRN (Reason: constipation) Qty: 479 2RF hydrocortisone [Proctozone-HC] 2.5 % cream with perineal applicator 1 appl NE BID PRN (Reason: hemorrhoids) Qty: 30 3RF Rx Instructions: apply NE BID prn buspirone 15 mg tablet 15 mg PO TID citalopram 10 mg tablet 10 mg PO DAILY Print Language: Bulgarian
[2023-07-23] MEDS: valACYclovir HCL 1,000 MG TABLET 1000 MG PO (22:07)
[2023-07-23] MEDS: Gabapentin 300 MG CAPSULE PO (22:08)
[2023-07-23 22:10] VITALS: BP 161/78; PULSE 76; RESP 20; TEMP 36.8; O2SAT 99
[2023-07-23 22:27] VITALS: BP 161/78; PULSE 76; RESP 20; TEMP 36.8; O2SAT 99
== END 2023-07-23 22:27 | disposition home or self-care (01) ==
PROVIDERS: Emergency Provider Internal Medicine
DX: B02.9 Zoster without complications (principal); E11.9 Type 2 diabetes mellitus without complications; I10 Essential (primary) hypertension; E78.5 Hyperlipidemia, unspecified; Z79.4 Long term (current) use of insulin; Z87.891 Personal history of nicotine dependence
CPT/HCPCS: 99283; 99284

== ENCOUNTER 2023-08-06 07:56 | Outpatient (AMB) | payer OTHER, SELFPAY ==
[2023-08-06 07:59] VITALS: BP 156/88; PULSE 76; BMI 33.2
--- NOTE | 2023-08-06 07:59 | A.OFFVIS_ITS ---
Vital Signs 08/06/23 07:59 Height 5 ft 10 in Weight 231 lb 7.766 oz BMI 33.2 BP 156/88 H Blood Pressure Location Lt brachial Position Sitting Pulse 76 Pulse Source Pulse Oximeter Intake Visit Reasons: f/u Type 2 DM-confirmed Intake Note: Patient presents today to follow up on D2MT. Last Diabetic Eye exam: 04/2023 Last Podiatry Visit:01/2023 Random Glucose: 182 mg/dl HgA1c: 8.9% 05/26/23 Continuous Mining Machine Coal Miner Required: Yes Continuous Mining Machine Coal Miner Language: Solar Installer Name: Jonathan Information Interpreted: non-clinical & clinical Accompanied by: Self / Same As Patient Allergies adhesive tape [ADHESIVE TAPE] Allergy (Intermediate, Verified 08/06/23 08:04) RASH pioglitazone [From ACTOS] Allergy (Intermediate, Verified 08/06/23 08:04) facial edema,rash latex Allergy (Mild, Verified 08/06/23 08:04) Rash HPI Comments Details: 48 YO F with PMHx T2DM who is seen in F/U for the same. She has a history of prior bariatric surgery in June of 2015. The patient last saw Dr. Chi. On 08/08/2021 Current regimen Canagliflozin 300 mg PO daily Mounjaro 2.5 mg mg once a week and Humulin U-500 in a tandem insulin pump. Pump Settings: Basal rate(s) (units/hour) : 12 AM? to 5 AM? 0.5 units / hr 5 AM? to 12 PM? 0.5 units / hr 12 PM to 5 PM 0.725 units / hr 5 PM to 12 AM 0.8 units / hr? Bolus setting Insulin Carbohydrate Ratio (s) 12 AM? to 5 AM? 1:7 5 AM to 12 AM 1:6 Correction Factor / Sensitivity Factor 12 AM? to 12 AM? 1:40 Active Insulin Time:? 4 hours Target(s): Control IQ 12 AM? to 12 AM? 110 mg/dL Total daily dose of insulin is 45.9. 42% basal with 20 58% bolus and 42% control IQ and 6% correction bolus She changes her site every 3 days. 14 days of sensor data downloaded from 07/24/23 through . This reveals an average glucose of ,296 with range 65-. 400 She is at goal 8% of the time, above goal 97% of the time, and below goal 0% of the time.. Pattern shows post- breakfast hyperglycemia with hyperglycemia throughout the day.. Blood sugars are dropping throughout the night. 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 Has symptoms with hypoglycemia. Treats according to the rule of 15's. She does not accurately count carbohydrates out of fear of hypoglycemia if she inputs the correct amount of carbs eaten into her pump. She is not using the sensor and is only checking her blood sugars rarely Has a positive Family history of T2DM. Has eyes checked yearly, last eye exam 03/2023 , has retinopathy. Has neuropathy. Has nephropathy, on Lisinopril 5 mg PO daily. UAC 17.3 04/14/2021. Has HLD, on rosuvastatin 10 mg PO daily. NLDL 79 04/14/2021. Denies CAD. Diet: Does follow a low carb diet. Weight: Stable. Has diabetes education. Labs: Laboratory Tests 04/14/21 04/14/21 04/14/21 08:19 08:19 08:19 Creatinine 0.69 Estimated GFR > 60 Hemoglobin A1c % 10.3 LDL Cholesterol, Calc 79 25-OH Vitamin D Total 12 L TSH 1.86 Microalb/Creat Ratio 04/14/21 08:25 Creatinine Estimated GFR Hemoglobin A1c % LDL Cholesterol, Calc 25-OH Vitamin D Total TSH Microalb/Creat Ratio 17.3 [facility] Medical History (Updated 07/24/23 @ 00:01 by Emanuel Mccartney) Physical exam Cellulitis of toe of right foot Hospital discharge follow-up Goiter Onychomycosis Vitamin D deficiency T2DM (type 2 diabetes mellitus) Left ankle pain B12 deficiency Left leg pain Acid reflux History of colonic polyps Chronic fatigue Carpal tunnel syndrome Daytime hypersomnia Autoimmune thyroiditis Fibromyalgia Morbid obesity Spondylosis, thoracic, 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 spine without myelopathy History of ulcer disease Sessile colonic polyp Obesity Tracee's disease 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 Diabetic nephropathy associated with type 2 diabetes mellitus Diabetic retinopathy associated with type 2 diabetes mellitus Diabetic polyneuropathy associated with type 2 diabetes mellitus Iron (Fe) deficiency anemia History of Graves' disease Lumbar degenerative disc disease Back pain Anxiety and depression GERD (gastroesophageal reflux disease) Asthma Hyperlipidemia Hypertension Diabetes mellitus Polyarthralgia Surgical History History of carpal tunnel surgery of right wrist H/O endoscopy History of cataract extraction History of lumpectomy of left breast History of carpal tunnel surgery of left wrist Hx of section Hx laparoscopic cholecystectomy Hx of esophagogastroduodenoscopy Hx of colonoscopy H/O gastric bypass Family History Father Diabetes Hypertension Mother Diabetes Hypertension Maternal Grandmother Colon cancer Paternal Aunt Cancer of ear Social History Household Members: Family Housing: House Alcohol intake: never Patient Tobacco Use Status: Former Tobacco user Tobacco use type: Cigarette Cigarette Packs Per Day: 1 Cigarettes Per Day: 20.0 Years Smoked: 20 e-Cigarette/Vaping Use: Never Used Second Hand Smoke Exposure: No service: No Current occupational status: disabled Current occupation: right hand dominant Cognitive needs: No Hearing needs: No Vision needs: Yes Female Reproductive History Menstrual Age of Menarche: 14 Assessment & Plan Assessment & Plan (1) T2DM (type 2 diabetes mellitus): Code(s): E11.9 - Type 2 diabetes mellitus without complications Category: Medical Qualifiers: Diabetes mellitus custodial insulin use: with predatory animal exterminator use Diabetes mellitus complication status: with hyperglycemia Qualified Code(s): E11.65 - Type 2 diabetes mellitus with hyperglycemia; Z79.4 - 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 She will follow up with the strategic partner development manager next several weeks. When meeting with the strategic partner development manager, we may need to tighten the insulin carbohydrate ratio at 05:00. I also told her to check the lipid profile and microalbumin to creatinine ratio ordered by primary care provider. Lastly, she expressed concern about having hypoglycemia while exercising and I have asked her to discuss putting exercise mode into the pump when meeting with the strategic partner development manager Coding Level of Care Code Est Pt Level 4 (53389) Diagnoses Type 2 diabetes mellitus with hyperglycemia, with long-term current use of insulin E11.65; Z79.4 Diabetes mellitus predatory animal exterminator insulin use: with predatory animal exterminator use Diabetes mellitus complication status: with hyperglycemia
[2023-08-06 08:13] LABS: Glucose, Whole Blood 182 mg/dL (60-115)
== END 2023-08-06 08:28 | disposition home or self-care (01) ==
PROVIDERS: PCP Internal Medicine; Visit Provider Internal Medicine Endocrinology, Diabetes & Metabolism
DX: E11.65 Type 2 diabetes mellitus with hyperglycemia (principal); Z79.4 Long term (current) use of insulin
CPT/HCPCS: 99214

== ENCOUNTER → 2023-08-06 07:56 | Outpatient (BNVA) | payer OTHER, SELFPAY | PROVIDERS: PCP Internal Medicine; Visit Provider Internal Medicine Endocrinology, Diabetes & Metabolism | DX: E11.65 Type 2 diabetes mellitus with hyperglycemia (principal); Z79.4 Long term (current) use of insulin | CPT/HCPCS: 82947; 99212 ==

== ENCOUNTER 2023-08-07 07:25 | Outpatient (AMB) | payer OTHER, SELFPAY ==
--- NOTE | 2023-08-07 07:35 | A.OFFPC_ITS ---
Vital Signs 08/07/23 07:36 Height 5 ft 10 in Weight 231 lb BMI 33.1 BP 130/80 Blood Pressure Location Lt brachial Position Sitting Intake Visit Reasons: [facility] [place]22 shingles Intake Note: Patient here for a [facility] [place] follow up 07/22 Shingles Charge Authorizer Required: No Accompanied by: Self / Same As Patient Allergies adhesive tape [ADHESIVE TAPE] Allergy (Intermediate, Verified 08/07/23 07:45) RASH pioglitazone [From ACTOS] Allergy (Intermediate, Verified 08/07/23 07:45) facial edema,rash latex Allergy (Mild, Verified 08/07/23 07:45) Rash Medication List - Last Reconciled 08/07/23 by Analilia Schumacher MD acetaminophen (Tylenol Extra Strength) 500 mg PO Q6H PRN albuterol sulfate 90 mcg/actuation 1 inh inhalation QID PRN albuterol sulfate 2.5 mg (3 mL) inhalation QID PRN 25 days artifi.tears(hypromellose)(PF) 0.3% 1 drp ophthalmic-Right Q4-6H PRN ascorbate calcium (vitamin C) 500 mg PO DAILY blood pressure kit-extra large As directed blood sugar diagnostic (FreeStyle Lite Strips) TEST 4 TIMES DAILY blood-glucose meter (FreeStyle Lite Meter kit) TEST 4 TIMES DAILY buspirone 1 tab PO TID buspirone 15 mg PO TID canagliflozin (Invokana) 300 mg PO DAILY cane As directed cetirizine (Zyrtec) 10 mg PO DAILY 90 days citalopram 10 mg PO DAILY cyanocobalamin (vitamin B-12) 1,000 mcg PO DAILY cyclobenzaprine 10 mg PO TID PRN diclofenac sodium 75 mg PO BID docusate sodium 100 mg PO DAILY ergocalciferol (vitamin D2) 1,250 mcg PO QWEEK 90 days ferrous sulfate 325 mg PO DAILY fluticasone propionate 50 mcg/actuation (Flonase Allergy Relief) 1 spray intranasal DAILY 30 days furosemide 20 mg PO BID 90 days gabapentin 100 mg PO TID 30 days hydrocortisone 2.5% (Proctozone-HC) 1 appl AK BID PRN hydrocortisone-pramoxine 1-1 % (Proctofoam HC) 1 appl AK DAILY hydroxyzine HCl 1 - 2 tabs PO QID ibuprofen 400 mg PO TID PRN insulin regular hum U-500 conc (Humulin R U-500 (Concentrated) Insulin) Infuse up to 500 units per day via insulin pump subcutaneously; insulin syringe-needle U-100 (Advocate Syringes) Use 1 needle once a month lidocaine 5% (Lidoderm) 1 patch topical DAILY PRN MDD remove after 12 hours lisinopril 10 mg PO DAILY methylcellulose (laxative) (Citrucel Sugar Free oral powder) 2 grams PO DAILY PRN montelukast 10 mg PO DAILY 90 days nebulizers (AeroEclipse II Nebulizer) As directed nortriptyline 10 mg PO BEDTIME ondansetron 4 mg PO Q6-8H PRN oxycodone-acetaminophen 5-325 mg 1 tab PO Q8H PRN 30 days pantoprazole 40 mg PO DAILY 30 days prochlorperazine maleate 10 mg PO TID PRN rosuvastatin 10 mg PO DAILY Shower Chair As directed simethicone (Gas Relief Extra Strength) 125 mg PO TID-QID PRN syringe with needle, safety (BD Safety-Jone Detachable Needle) Use 1 syringe once a month thiamine HCl (vitamin B1) 1 tab PO DAILY tirzepatide (Mounjaro) 5 mg (0.5 mL) subcut QWEEK 30 days tizanidine 4 mg PO Q8H PRN 30 days valacyclovir (Valtrex) 1,000 mg PO TID vitamin A 1 cap PO DAILY Tobacco use date assessed: 05/26/23 Dental Screening Dental Screen Date: 05/26/23 HPI HPI Comments History of Present Illness Details This is a 48-year-old female with diabetes mellitus type 2 on long-term current use of insulin, hypertension, hyperlipidemia, GERD and moderate major depression that comes today as ER discharge follow-up with discharge date 07/23/2023 due to shingles around the neck area. Was treated with valacyclovir with significant improvement. At the moment there are no skin lesions. Last A1c was elevated but improved and this is follow by Endocrinology. Blood pressure stable. Lipid panel will be order and her LDL goal should be less than 70. GERD stable with PPIs. Moderate major depression has been stable and this is follow by Psychiatry and counseling. No chest pain or shortness on breath. [facility] Medical History (Updated 08/07/23 @ 09:32 by Analilia Schumacher MD) Physical exam Cellulitis of toe of right foot Hospital discharge follow-up Goiter Onychomycosis Vitamin D deficiency T2DM (type 2 diabetes mellitus) Left ankle pain B12 deficiency Left leg pain Acid reflux History of colonic polyps Chronic fatigue Carpal tunnel syndrome Daytime hypersomnia Autoimmune thyroiditis Fibromyalgia Morbid obesity Spondylosis, thoracic, 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 spine without myelopathy History of ulcer disease Sessile colonic polyp Obesity 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 Diabetic nephropathy associated with type 2 diabetes mellitus Diabetic retinopathy associated with type 2 diabetes mellitus Diabetic polyneuropathy associated with type 2 diabetes mellitus Iron (Fe) deficiency anemia History of Graves' disease Lumbar degenerative disc disease Back pain Anxiety and depression GERD (gastroesophageal reflux disease) Asthma Hyperlipidemia Hypertension Diabetes mellitus Polyarthralgia Surgical History History of carpal tunnel surgery of right wrist H/O endoscopy History of cataract extraction History of lumpectomy of left breast History of carpal tunnel surgery of left wrist Hx of section Hx laparoscopic cholecystectomy Hx of esophagogastroduodenoscopy Hx of colonoscopy H/O gastric bypass Family History Father Diabetes Hypertension Mother Diabetes Hypertension Maternal Grandmother Colon cancer Paternal Aunt Cancer of ear Social History Household Members: Family Housing: House Alcohol intake: never Patient Tobacco Use Status: Former Tobacco user Tobacco use type: Cigarette Cigarette Packs Per Day: 1 Cigarettes Per Day: 20.0 Years Smoked: 20 Packs Per Year: 20 Packs per year/per ci.00 e-Cigarette/Vaping Use: Never Used Second Hand Smoke Exposure: No service: No Current occupational status: disabled Current occupation: right hand dominant Cognitive needs: No Hearing needs: No Vision needs: Yes Female Reproductive History Menstrual Age of Menarche: 14 Questionnaire PHQ-9 Over the last 2 weeks, how often have you been bothered by any of the following problems? 1. Little interest or pleasure in doing things: several days 2. Feeling down, depressed, or hopeless: several days 3. Trouble falling or staying asleep, or sleeping too much: several days 4. Feeling tired or having little energy: several days 5. Poor appetite or overeating: several days 6. Feeling bad about yourself - or that you are a failure or have let yourself or your family down: not at all 7. Trouble concentrating on things, such as reading the newspaper or watching television: several days 8. Moving or speaking so slowly that other people could have noticed. Or the opp osite - being so fidgety or restless that you have been moving around a lot more than usual: not at all 9. Thoughts that you would be better off or of hurting yourself in some way: not at all Total score: 6 Depression Screening Interpretation: Positive Depression Screening Follow-up: Existing condition, In treatment, Community Mental Health Worker F/U and Follow- up Visit Requested Depression Screening Done: Yes 52066 - PHQ-9 Billing: Yes Source: Developed by Drs. Parmjit Be, Yessi Gold, Ji Mahmood and colleagues, with an educational anni from [employer]. Thrive Questionnaire Date Thrive assessed: 05/26/23 MARCO-7 AMB Questionnaire MARCO-7 Date MARCO - 7 assessed: 05/26/23 Source: Developed by Drs. Parmjit Be, Yessi Gold, Ji Mahmood and colleagues, with an educational anni from [employer]. Review of Systems Const All systems reviewed & are unremarkable except as noted in HPI and below Card Denies chest pain at rest, Denies chest pain with activity, Denies edema, Denies irregular heart rhythm, Denies claudication, Denies dyspnea, Denies dyspnea on exertion, Denies orthopnea, Denies paroxysmal nocturnal dyspnea and Denies slow heart rate Resp Denies cough, Denies dyspnea and Denies dyspnea on exertion Neuro Denies lack of coordination Physical exam (Primary Care) Vital Signs: Last Vital Signs BP 130/80 08/07/23 07:36 BMI result Body Mass Index 33.1 BMI Assessment/Plan discussion: High BMI High, discussed plan: lifestyle, weight reduction, dietary and physical activity Tobacco/Smoking Status: Tobacco use Status Tobacco use date assessed 05/26/23 08/07/23 07:35 Patient Tobacco Use Status Former Tobacco user 08/07/23 07:35 Tobacco use type Cigarette 08/07/23 07:35 e-Cigarette/Vaping Use Never Used 08/07/23 07:35 Depression Screening Interpretation: Positive Depression Screening Follow-up: Existing condition, In treatment, Community Mental Health Worker F/U and Follow- up Visit Requested Thrive Assessment: Date of Thrive Assessment Date Thrive assessed 05/26/23 08/07/23 07:35 Resp Effort & Inspection: normal respiratory effort Auscultation: clear to auscultation bilaterally Cardio Jugular venous distension: no JVD Rate: regular rate Rhythm: regular rhythm Heart sounds: S1 normal heart sound present and S2 normal heart sound present Extrem General: Yes full ROM Assessment and Plan Assessment & Plan (1) Moderate major depression: Code(s): F32.1 - Major depressive disorder, single episode, moderate Plan: Continue citalopram. Follow-up with psychiatry and counseling. (2) Hyperlipidemia LDL goal <70: Code(s): E78.5 - Hyperlipidemia, unspecified Plan: Continue statins. Repeat lipid panel. LDL goal is less than 70. (3) T2DM (type 2 diabetes mellitus): Code(s): E11.9 - Type 2 diabetes mellitus without complications Qualifiers: Diabetes mellitus skilled nursing insulin use: with termite treater use Diabetes mellitus complication status: with hyperglycemia Qualified Code(s): E11.65 - Type 2 diabetes mellitus with hyperglycemia; Z79.4 - long-term (current) use of insulin Plan: Continue Invokana, Mounjaro and insulin. A1c goal is equal or less than 7%. Follow-up with endocrinology. (4) GERD (gastroesophageal reflux disease): Code(s): K21.9 - Gastro-esophageal reflux disease without esophagitis Qualifiers: Esophagitis presence: esophagitis presence not specified Qualified Code(s): K21.9 - Gastro-esophageal reflux disease without esophagitis Plan: Continue PPIs. (5) Essential hypertension: Code(s): I10 - Essential (primary) hypertension Plan: Continue lisinopril. Blood pressure goal is equal or less than 130/80. Orders: Orders Microalbumin, Random (w Creat) Today E11.9 - Type 2 diabetes mellitus without complications IRON PROFILE Today D64.9 - Anemia, unspecified Vitamin B1 Today E51.9 - Thiamine deficiency, unspecified Thyroid Stimulating Hormone Today E04.9 - Nontoxic goiter, unspecified Comprehensive Jeffrey. Panel Fast Today E11.65 - Type 2 diabetes mellitus with hyperglycemia, Z79.4 - 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) use of insulin Vitamin D 25-OH Total Today E55.9 - Vitamin D deficiency, unspecified Vitamin B12 and Folate Today E53.8 - Deficiency of other specified B group vitamins Lipid Panel Today E78.5 - Hyperlipidemia, unspecified Complete Blood Count Auto Diff Today D64.9 - Anemia, unspecified Vitamin A Today E50.9 - Vitamin A deficiency, unspecified Coding Level of Care Code Est Pt Level 4 (74146) Complex EM visit Add On G2211 Diagnoses Moderate major depression F32.1 Hyperlipidemia LDL goal <70 E78.5 Type 2 diabetes mellitus with hyperglycemia, with long-term current use of insulin E11.65; Z79.4 Diabetes mellitus termite treater insulin use: with skilled nursing use Diabetes mellitus complication status: with hyperglycemia Gastroesophageal reflux disease, unspecified whether esophagitis present K21.9 Esophagitis presence: esophagitis presence not specified Essential hypertension I10 Time Spent (min) 23
[2023-08-07 07:36] VITALS: BP 130/80; BMI 33.1
== END 2023-08-07 07:53 | disposition home or self-care (01) ==
PROVIDERS: PCP Internal Medicine; Visit Provider Internal Medicine
DX: E11.65 Type 2 diabetes mellitus with hyperglycemia (principal); F32.1 Major depressive disorder, single episode, moderate; Z79.4 Long term (current) use of insulin; E78.5 Hyperlipidemia, unspecified; K21.9 Gastro-esophageal reflux disease without esophagitis; I10 Essential (primary) hypertension
CPT/HCPCS: 99214; G2211

== ENCOUNTER 2023-09-09 09:51 | Outpatient (AMB) | payer OTHER, SELFPAY ==
--- NOTE | 2023-09-09 10:30 | A.OFFVIS_ITS ---
Intake Intake Visit Reasons: 30 min/LVM Allergies adhesive tape [ADHESIVE TAPE] Allergy (Intermediate, Verified 08/07/23 07:45) RASH pioglitazone [From ACTOS] Allergy (Intermediate, Verified 08/07/23 07:45) facial edema,rash latex Allergy (Mild, Verified 08/07/23 07:45) Rash HPI Comprehensive Diabetes Asmnt Most Recent Diabetes Results: No Data to Display [facility] Medical History (Updated 08/07/23 @ 09:32 by Analilia Schumacher MD) Physical exam Cellulitis of toe of right foot Hospital discharge follow-up Goiter Onychomycosis Vitamin D deficiency T2DM (type 2 diabetes mellitus) Left ankle pain B12 deficiency Left leg pain Acid reflux History of colonic polyps Chronic fatigue Carpal tunnel syndrome Daytime hypersomnia Autoimmune thyroiditis Fibromyalgia Morbid obesity Spondylosis, thoracic, 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 spine without myelopathy History of ulcer disease Sessile colonic polyp Obesity Tracee's disease 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 Diabetic nephropathy associated with type 2 diabetes mellitus Diabetic retinopathy associated with type 2 diabetes mellitus Diabetic polyneuropathy associated with type 2 diabetes mellitus Iron (Fe) deficiency anemia History of Graves' disease Lumbar degenerative disc disease Back pain Anxiety and depression GERD (gastroesophageal reflux disease) Asthma Hyperlipidemia Hypertension Diabetes mellitus Polyarthralgia Surgical History History of carpal tunnel surgery of right wrist H/O endoscopy History of cataract extraction History of lumpectomy of left breast History of carpal tunnel surgery of left wrist Hx of section Hx laparoscopic cholecystectomy Hx of esophagogastroduodenoscopy Hx of colonoscopy H/O gastric bypass Family History Father Diabetes Hypertension Mother Diabetes Hypertension Maternal Grandmother Colon cancer Paternal Aunt Cancer of ear Social History Household Members: Family Housing: House Alcohol intake: never Patient Tobacco Use Status: Former Tobacco user Tobacco use type: Cigarette Cigarette Packs Per Day: 1 Cigarettes Per Day: 20.0 Years Smoked: 20 e-Cigarette/Vaping Use: Never Used Second Hand Smoke Exposure: No service: No Current occupational status: disabled Current occupation: right hand dominant Cognitive needs: No Hearing needs: No Vision needs: Yes Female Reproductive History Menstrual Age of Menarche: 14 Assessment & Plan Assessment & Plan (1) Diabetic nephropathy associated with type 2 diabetes mellitus: Code(s): E11.21 - Type 2 diabetes mellitus with diabetic nephropathy Plan: Patient presents for pump training for T slim with control IQ, and Dexcom G6 Patient uses Humulin U 500 in insulin pump The following topics were reviewed today: Upgrading T slim to be compatible with Dexcom G7 - Sensor setting (if applicable) ?? High Alert: 180 mg/dl ??? Low Alert: 80 mg/dl Patient above target 89% Patient at target 10% Patient below target 1% Patient average glucose for the past 2 weeks 299mg/dL Patient continues to have significant amount postprandial hyperglycemia, see changes to pump settings below Patient had A1c drawn at PCP visit on 05/26/2023, A1c result 8.9% Patient is now on Mounjaro 5 mg Patient is waiting on prescription for Mounjaro 7.5mg, to be approved. pump settings Safety information: Patient understands the basic concepts of pump therapy, how to give insulin for meals and snacks, how to troubleshoot for hyper and hypoglycemia. Importance of a backup plan, for manual injections, proper prescriptions and emergency supplies ketone strips, and rules for testing for ketones Patient given copy off pump insulin plan, Boluscalc deya downloaded and setup on Pt's cell phone Setting verified by [facility] Basal rate(s) (units/hour) : 12 AM? to 5 AM? 0.5 units / hr 5 AM? to 12 PM? 0.5 units / hr New 5 AM? to 12 PM? 0.725 units / hr 12 PM to 5 PM 0.725 units / hr 5 PM to 12 AM 0.8 units / hr? Bolus setting Insulin Carbohydrate Ratio (s) 12 AM? to 5 AM? 1:7 5 AM to 12 AM 1:6 New 5 AM to 12 AM 1:5 Correction Factor / Sensitivity Factor 12 AM? to 12 AM? 1:40 New 12 AM? to 12 AM? 1:35 Active Insulin Time:? 5 hours Target(s): Control IQ 12 AM? to 12 AM? 110 mg/dL Medications: Discontinued tirzepatide (Mounjaro) Discontinued Reason: Doctor's Order 5 mg (0.5 mL) subcut QWEEK 30 days 2 mL 4RF Patient Instructions: Patient will follow-up with staff development educator in 2 weeks, patient instructed to contact staff development educator if she is experiencing hypoglycemia Use rule of 15s to treat any episodes of hypoglycemia Coding Level of Care Code Est Pt Level 1 (47191) Diagnoses Diabetic nephropathy associated with type 2 diabetes mellitus E11.21
== END 2023-09-09 10:36 | disposition home or self-care (01) ==
PROVIDERS: PCP Internal Medicine; Visit Provider Registered Nurse Diabetes Educator
DX: E11.21 Type 2 diabetes mellitus with diabetic nephropathy (principal)

== ENCOUNTER → 2023-09-09 09:51 | Outpatient (BNVA) | payer OTHER, SELFPAY | PROVIDERS: PCP Internal Medicine; Visit Provider Registered Nurse Diabetes Educator | DX: E11.21 Type 2 diabetes mellitus with diabetic nephropathy (principal); Z46.81 Encounter for fitting and adjustment of insulin pump; Z79.4 Long term (current) use of insulin | CPT/HCPCS: 99211 ==

== ENCOUNTER 2023-09-22 07:01 | Outpatient (AMB) | payer OTHER, SELFPAY ==
--- NOTE | 2023-09-22 08:25 | A.OFFVIS_ITS ---
Intake Intake Visit Reasons: 60 MIN Switch Operators Supervisor Required: Yes Switch Operators Supervisor Language: Insurance Operations Rep Name: Jerrell [id number] Information Interpreted: non-clinical & clinical Accompanied by: Self / Same As Patient Allergies adhesive tape [ADHESIVE TAPE] Allergy (Intermediate, Verified 08/07/23 07:45) RASH pioglitazone [From ACTOS] Allergy (Intermediate, Verified 08/07/23 07:45) facial edema,rash latex Allergy (Mild, Verified 08/07/23 07:45) Rash HPI Comprehensive Diabetes Asmnt Most Recent Diabetes Results: Hemoglobin A1c 8.3 % 05/14/18 Microalb/Creat Ratio 39.9 ug/mg cr (<30) H 05/24/23 Cholesterol 182 mg/dL (<200) 05/24/23 HDL Cholesterol 73 mg/dL (>40) 05/24/23 Triglycerides 138 mg/dL (<150) 05/24/23 Creatinine 0.70 mg/dL (0.5-1.4) 05/24/23 Blood Urea Nitrogen 13 mg/dL (9-16) 05/24/23 Sodium 137 mmol/L (135-145) 05/24/23 Potassium 4.2 mmol/L (3.3-5.1) 05/24/23 Chloride 103 mmol/L (96-108) 05/24/23 Carbon Dioxide 25 mmol/L (22-29) 05/24/23 Calcium 9.4 mg/dL (8.4-10.2) 05/24/23 AST 23 U/L (5-31) 05/24/23 ALT 31 U/L (0-31) 05/24/23 Total Protein 7.6 g/dL (6.5-8.0) 05/24/23 Albumin 4.1 g/dL (3.5-5.0) 05/24/23 [facility] Medical History (Updated 08/07/23 @ 09:32 by Analilia Schumacher MD) Physical exam Cellulitis of toe of right foot Hospital discharge follow-up Goiter Onychomycosis Vitamin D deficiency T2DM (type 2 diabetes mellitus) Left ankle pain B12 deficiency Left leg pain Acid reflux History of colonic polyps Chronic fatigue Carpal tunnel syndrome Daytime hypersomnia Autoimmune thyroiditis Fibromyalgia Morbid obesity Spondylosis, thoracic, 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 spine without myelopathy History of ulcer disease Sessile colonic polyp Obesity Tracee's disease retirement (current) use of insulin Diabetic nephropathy associated with type 2 diabetes mellitus Diabetic retinopathy associated with type 2 diabetes mellitus Diabetic polyneuropathy associated with type 2 diabetes mellitus Iron (Fe) deficiency anemia History of Graves' disease Lumbar degenerative disc disease Back pain Anxiety and depression GERD (gastroesophageal reflux disease) Asthma Hyperlipidemia Hypertension Diabetes mellitus Polyarthralgia Surgical History History of carpal tunnel surgery of right wrist H/O endoscopy History of cataract extraction History of lumpectomy of left breast History of carpal tunnel surgery of left wrist Hx of section Hx laparoscopic cholecystectomy Hx of esophagogastroduodenoscopy Hx of colonoscopy H/O gastric bypass Family History Father Diabetes Hypertension Mother Diabetes Hypertension Maternal Grandmother Colon cancer Paternal Aunt Cancer of ear Social History Household Members: Family Housing: House Alcohol intake: never Patient Tobacco Use Status: Former Tobacco user Tobacco use type: Cigarette Cigarette Packs Per Day: 1 Cigarettes Per Day: 20.0 Years Smoked: 20 e-Cigarette/Vaping Use: Never Used Second Hand Smoke Exposure: No service: No Current occupational status: disabled Current occupation: right hand dominant Cognitive needs: No Hearing needs: No Vision needs: Yes Female Reproductive History Menstrual Age of Menarche: 14 Assessment & Plan Assessment & Plan (1) Diabetic retinopathy associated with type 2 diabetes mellitus: Code(s): E11.319 - Type 2 diabetes mellitus with unspecified diabetic retinopathy without macular edema Plan: Patient presents for pump training for T [facility] with control IQ, and Dexcom G6 Patient uses Humulin U 500 in insulin pump The following topics were reviewed today: At today's visit we upgraded patient's insulin pump to be compatible with Dexcom G7 Started new Dexcom G7 sensor, patient left visit in warmup - Sensor setting (if applicable) ?? High Alert: 180 mg/dl ??? Low Alert: 80 mg/dl Patient had A1c drawn at PCP visit on 05/26/2023, A1c result 8.9% Patient is now on Mounjaro 7.5 mg Patient is waiting on prescription for Mounjaro 12 mg, to be approved. Tandem ID: [email or web address] Tandem password: [email or web address] Safety information: Patient understands the basic concepts of pump therapy, how to give insulin for meals and snacks, how to troubleshoot for hyper and hypoglycemia. Importance of a backup plan, for manual injections, proper prescriptions and emergency supplies ketone strips, and rules for testing for ketones Patient reports she has U 500 syringes at home in case she needs to use diabetes backup plan Setting verified by [facility] Basal rate(s) (units/hour) : 12 AM? to 5 AM? 0.5 units / hr 5 AM? to 12 PM? 0.725 units / hr 12 PM to 5 PM 0.725 units / hr 5 PM to 12 AM 0.8 units / hr? Bolus setting Insulin Carbohydrate Ratio (s) 5 AM to 12 AM 1:5 Correction Factor / Sensitivity Factor 12 AM? to 12 AM? 1:35 Active Insulin Time:? 5 hours Target(s): Control IQ 12 AM? to 12 AM? 110 mg/dL Patient Instructions: Patient will follow-up with assistant health educator in 2 weeks Coding Level of Care Code Est Pt Level 1 (28799) Diagnoses Diabetic retinopathy associated with type 2 diabetes mellitus E11.319
== END 2023-09-22 08:26 | disposition home or self-care (01) ==
PROVIDERS: PCP Internal Medicine; Visit Provider Registered Nurse Diabetes Educator
DX: E11.319 Type 2 diabetes mellitus with unspecified diabetic retinopathy without macular edema (principal)

== ENCOUNTER → 2023-09-22 07:01 | Outpatient (BNVA) | payer OTHER, SELFPAY | PROVIDERS: PCP Internal Medicine; Visit Provider Registered Nurse Diabetes Educator | DX: Z46.81 Encounter for fitting and adjustment of insulin pump (principal); E11.319 Type 2 diabetes mellitus with unspecified diabetic retinopathy without macular edema | CPT/HCPCS: 99211 ==

== ENCOUNTER 2023-09-30 06:56 | Outpatient (REF) | payer OTHER, SELFPAY ==
[2023-09-30 07:13] LABS: MANUAL DIFF FLAG NO
[2023-09-30 08:00] LABS: Basophils Percent Auto 0.3 % (0-2); Eosinophils Absolute Auto 0.1 X10*3/uL (0.0-0.4); Eosinophils Percent Auto 0.6 % (0-4); Hematocrit 35.1 % (37.0-47.0); Imm Gran Abs Auto 0.02 X10*3/uL (0.00-0.03); Imm Gran Pct Auto 0.3 % (0.0-0.4); Lymphocytes Absolute Auto 1.6 X10*3/uL (1.2-4.9); Lymphocytes Percent Auto 20.3 % (20-40); Mean Corpuscular HGB Conc 31.3 g/dl (31.0-35.0); Mean Corpuscular Hemoglobin 23.6 pg (27.0-33.0); Mean Corpuscular Volume 75.2 fL (80.0-98.0); Mean Platelet Volume 9.7 fL (9.4-12.3); Monocytes Absolute Auto 0.6 X10*3/uL (0.1-1.2); Monocytes Percent Auto 7.4 % (2-11); Neutrophils Absolute Auto 5.7 x10*3/uL (2.0-8.3); Neutrophils Percent Auto 71.1 % (45-73); Platelet Count 297 X10*3/uL (160-400); Red Blood Count 4.67 X10*6/uL (4.20-5.50); Red Cell Distribution Width 15.6 % (11.0-16.0)
[2023-09-30 08:39] LABS: Alanine Aminotransferase 20 U/L (0-31); Alkaline Phosphatase 110 U/L (39-117); Anion Gap 13 (12-20); Bilirubin Total 0.4 mg/dL (0.0-1.0); Blood Urea Nitrogen 9 mg/dL (9-16); Calcium 9.3 mg/dL (8.4-10.2); Carbon Dioxide 25 mmol/L (22-29); Chloride 101 mmol/L (96-108); Cholesterol 175 mg/dL (<200); Estimated Glomerular Filt Rate > 60; Glucose Fasting 212 mg/dL (60-99); HDL Cholesterol 69 mg/dL (>40); Iron 38 mcg/dL (30-160); LDL Cholesterol Calculated 72 mg/dL (<100); Percent Iron Saturation 9 % (15-50); Potassium 3.9 mmol/L (3.3-5.1); Sodium 135 mmol/L (135-145); Total Iron Binding Capacity 432 mcg/dL (228-428); Total Protein 7.5 g/dL (6.5-8.0); Triglycerides 170 mg/dL (<150); Unsaturated Iron Binding 394 ug/dL
[2023-09-30 08:51] LABS: Aspartate Amino Transferase 15 U/L (5-31)
[2023-09-30 08:55] LABS: Thyroid Stimulating Hormone 2.86 uIU/mL (0.32-4.0); Vitamin D 25-OH Total 12.7 ng/mL (>30)
[2023-09-30 09:01] LABS: Folate 12.3 ng/mL (> or = 4.0); Vitamin B12 152 pg/mL (200-900)
[2023-09-30 11:44] LABS: Creatinine Urine 109.58 mg/dL; Microalbum/Creatinine Ratio Ur 64.7 ug/mg cr (<30)
[2023-10-04 09:03] LABS: Vitamin B1 10 nmol/L (8-30)
[2023-10-04 23:53] LABS: Vitamin A 34 mcg/dL (38-98)
== END 2023-09-30 06:57 | disposition home or self-care (01) ==
LOC: HO.LAB 06:56
PROVIDERS: PCP Internal Medicine; Visit Provider Internal Medicine
DX: E78.5 Hyperlipidemia, unspecified (principal); E55.9 Vitamin D deficiency, unspecified; D64.9 Anemia, unspecified; E51.9 Thiamine deficiency, unspecified; E04.9 Nontoxic goiter, unspecified; E11.65 Type 2 diabetes mellitus with hyperglycemia; Z79.4 Long term (current) use of insulin; E53.8 Deficiency of other specified B group vitamins; E50.9 Vitamin A deficiency, unspecified
CPT/HCPCS: 36415; 80053; 80061; 82043; 82306; 82570; 82607; 82746; 83540; 84425; 84443; 84590; 85025

== ENCOUNTER 2023-10-01 08:00 | Outpatient (AMB) | payer OTHER, SELFPAY ==
--- NOTE | 2023-10-01 08:22 | A.OFFPC_ITS ---
Vital Signs 10/01/23 08:24 Height 5 ft 10 in Weight 223 lb BMI 32.0 BP 134/80 Blood Pressure Location Lt brachial Position Sitting Intake Visit Reasons: DM Intake Note: Patient here for a follow up DM, c/o right ear discomfort, right arm pain Speech Pathology Assistant Required: No Accompanied by: Self / Same As Patient Allergies adhesive tape [ADHESIVE TAPE] Allergy (Intermediate, Verified 10/01/23 08:45) RASH pioglitazone [From ACTOS] Allergy (Intermediate, Verified 10/01/23 08:45) facial edema,rash latex Allergy (Mild, Verified 10/01/23 08:45) Rash Medication List - Last Reconciled 10/01/23 by Analilia Schumacher MD acetaminophen (Tylenol Extra Strength) 500 mg PO Q6H PRN albuterol sulfate 90 mcg/actuation 1 inh inhalation QID PRN albuterol sulfate 2.5 mg (3 mL) inhalation QID PRN 25 days artifi.tears(hypromellose)(PF) 0.3% 1 drp ophthalmic-Right Q4-6H PRN ascorbate calcium (vitamin C) 500 mg PO DAILY blood pressure kit-extra large As directed blood sugar diagnostic (FreeStyle Lite Strips) TEST 4 TIMES DAILY blood-glucose meter (FreeStyle Lite Meter kit) TEST 4 TIMES DAILY buspirone 1 tab PO TID buspirone 15 mg PO TID canagliflozin (Invokana) 300 mg PO DAILY cane As directed cetirizine (Zyrtec) 10 mg PO DAILY 90 days citalopram 10 mg PO DAILY cyanocobalamin (vitamin B-12) 1,000 mcg PO DAILY cyclobenzaprine 10 mg PO TID PRN diclofenac sodium 75 mg PO BID docusate sodium 100 mg PO DAILY ergocalciferol (vitamin D2) 1,250 mcg PO QWEEK 90 days ferrous sulfate 325 mg PO DAILY fluticasone propionate 50 mcg/actuation (Flonase Allergy Relief) 1 spray intranasal DAILY 30 days furosemide 20 mg PO BID 90 days gabapentin 100 mg PO TID 30 days hydrocortisone 2.5% (Proctozone-HC) [address] BID PRN hydrocortisone-pramoxine 1-1 % (Proctofoam HC) [address] DAILY hydroxyzine HCl 1 - 2 tabs PO QID ibuprofen 400 mg PO TID PRN insulin regular hum U-500 conc (Humulin R U-500 (Conc) Insulin Kwikpen) 22 units subcutaneously before breakfast and dinner; insulin regular hum U-500 conc (Humulin R U-500 (Concentrated) Insulin) Infuse up to 500 units per day via insulin pump subcutaneously; insulin syringe-needle U-100 (Advocate Syringes) Use 1 needle once a month lidocaine 5% (Lidoderm) 1 patch topical DAILY PRN MDD remove after 12 hours lisinopril 10 mg PO DAILY methylcellulose (laxative) (Citrucel Sugar Free oral powder) 2 grams PO DAILY PRN montelukast 10 mg PO DAILY 90 days nebulizers (AeroEclipse II Nebulizer) As directed nortriptyline 10 mg PO BEDTIME ondansetron 4 mg PO Q6-8H PRN oxycodone-acetaminophen 5-325 mg 1 tab PO Q8H PRN 30 days pantoprazole 40 mg PO DAILY 30 days pen needle, diabetic (Comfort EZ Pen Hayden) As directed injection twice a day prochlorperazine maleate 10 mg PO TID PRN rosuvastatin 10 mg PO DAILY Shower Chair As directed simethicone (Gas Relief Extra Strength) 125 mg PO TID-QID PRN syringe with needle, safety (BD Safety-Jone Detachable Needle) Use 1 syringe once a month thiamine HCl (vitamin B1) 1 tab PO DAILY tirzepatide (Mounjaro) 7.5 mg (0.5 mL) subcut QWEEK tirzepatide (Mounjaro) 10 mg (0.5 mL) subcut QWEEK tizanidine 4 mg PO Q8H PRN 30 days valacyclovir (Valtrex) 1,000 mg PO TID vitamin A 1 cap PO DAILY Tobacco use date assessed: 05/26/23 Dental Screening Dental Screen Date: 05/26/23 HPI HPI Comments History of Present Illness Details This is a 48-year-old female with diabetes mellitus type 2 on long-term current use of insulin, hypertension, pernicious anemia, autoimmune thyroiditis and low vitamin-D that comes today for follow-up on recent labs. A1c still elevated but improving and this is follow by endocrinology. Blood pressure stable. Vitamin B12 is low and it will be supplemented with injections once a month. TSH normal. Vitamin-D is also low and she said that she is compliant with medications. Complains of ear discomfort secondary to otitis and amoxicillin will be ordered. She also has moderate major depression stable with medications. 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 Diabetic nephropathy associated with type 2 diabetes mellitus Diabetic retinopathy associated with type 2 diabetes mellitus Diabetic polyneuropathy associated with type 2 diabetes mellitus Iron (Fe) deficiency anemia History of Graves' disease Lumbar degenerative disc disease Back pain Anxiety and depression GERD (gastroesophageal reflux disease) Asthma Hyperlipidemia Hypertension Diabetes mellitus Polyarthralgia Surgical History History of carpal tunnel surgery of right wrist H/O endoscopy History of cataract extraction History of lumpectomy of left breast History of carpal tunnel surgery of left wrist Hx of section Hx laparoscopic cholecystectomy Hx of esophagogastroduodenoscopy Hx of colonoscopy H/O gastric bypass Family History Father Diabetes Hypertension Mother Diabetes Hypertension Maternal Grandmother Colon cancer Paternal Aunt Cancer of ear Social History Household Members: Family Housing: House Alcohol intake: never Patient Tobacco Use Status: Former Tobacco user Tobacco use type: Cigarette Cigarette Packs Per Day: 1 Cigarettes Per Day: 20.0 Years Smoked: 20 e-Cigarette/Vaping Use: Never Used Second Hand Smoke Exposure: No service: No Current occupational status: disabled Current occupation: right hand dominant Cognitive needs: No Hearing needs: No Vision needs: Yes Female Reproductive History Menstrual Age of Menarche: 14 Questionnaire Thrive Questionnaire Date Thrive assessed: 05/26/23 MARCO-7 AMB Questionnaire MARCO-7 Date MARCO - 7 assessed: 05/26/23 Source: Developed by Drs. Parmjit eB, Yessi Gold, Ji Mahmood and colleagues, with an educational anni from [employer]. Review of Systems Const All systems reviewed & are unremarkable except as noted in HPI and below Card Denies chest pain at rest, Denies chest pain with activity, Denies edema, Denies irregular heart rhythm, Denies claudication, Denies dyspnea, Denies dyspnea on exertion, Denies orthopnea, Denies paroxysmal nocturnal dyspnea and Denies slow heart rate Resp Denies cough, Denies dyspnea and Denies dyspnea on exertion Physical exam (Primary Care) Vital Signs: Last Vital Signs BP 134/80 10/01/23 08:24 BMI result Body Mass Index 32.0 BMI Assessment/Plan discussion: High BMI High, discussed plan: lifestyle, weight reduction, dietary and physical activity Tobacco/Smoking Status: Tobacco use Status Tobacco use date assessed 05/26/23 10/01/23 08:23 Patient Tobacco Use Status Former Tobacco user 10/01/23 08:23 Tobacco use type Cigarette 10/01/23 08:23 e-Cigarette/Vaping Use Never Used 10/01/23 08:23 Thrive Assessment: Date of Thrive Assessment Date Thrive assessed 05/26/23 10/01/23 08:23 Resp Effort & Inspection: normal respiratory effort Auscultation: clear to auscultation bilaterally Cardio Jugular venous distension: no JVD Rate: regular rate Rhythm: regular rhythm Heart sounds: S1 normal heart sound present and S2 normal heart sound present Extrem General: Yes full ROM Results AMB Hemoglobin A1c AMB Hemoglobin A1c 9.9 % Last Edit by LASHONDA Alexander on 10/01/23 09:2 7 Results Reviewed Results Reviewed: Laboratory Last Values Hgb A1c (Clinic) 9.9 % (4.0-6.0) H 10/01/23 08:21 Assessment and Plan Assessment & Plan (1) Hypovitaminosis D: Code(s): E55.9 - Vitamin D deficiency, unspecified Plan: Continue vitamin-D supplements. (2) Pernicious anemia: Code(s): D51.0 - Vitamin B12 deficiency anemia due to intrinsic factor deficiency Plan: Start vitamin B12 intramuscular once a month. (3) Moderate major depression: Code(s): F32.1 - Major depressive disorder, single episode, moderate Plan: Continue citalopram. (4) Essential hypertension: Code(s): I10 - Essential (primary) hypertension Plan: Continue lisinopril. Blood pressure goal is equal or less than 130/80. 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 Follow-up with endocrinology. A1c goal is equal or less than 7%. (6) Autoimmune thyroiditis: Code(s): E06.3 - Autoimmune thyroiditis Plan: Continue levothyroxine. Monitor TSH. Orders: Orders Microalbumin, Random (w Creat) 4 Months E11.9 - Type 2 diabetes mellitus without complications Vitamin B12 and Folate 4 Months E53.8 - Deficiency of other specified B group vitamins Complete Blood Count Auto Diff 4 Months D64.9 - Anemia, unspecified Comprehensive [facility]. 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 Lipid Panel 4 Months E78.5 - Hyperlipidemia, unspecified Vitamin D 25-OH Total 4 Months E55.9 - Vitamin D deficiency, unspecified IRON PROFILE 4 Months D64.9 - Anemia, unspecified Medications: New cyanocobalamin (vitamin B-12) 1,000 mcg IM Q4W 4 weeks 1 mL 6RF D51.0 - Vitamin B12 deficiency anemia due to intrinsic factor deficiency, E55.9 - Vitamin D deficiency, unspecified syringe with needle ([employer] Luer Slip Syringe-Needle) For vitamin B12 injection 1 ea 6RF D51.0 - Vitamin B12 deficiency anemia due to intrinsic factor deficiency varicella-zoster gE-AS01B (PF) 50 mcg/0.5 mL (Shingrix (PF)) 50 mcg IM ONCE 1 day 1 ea 0RF amoxicillin 500 mg PO BID 5 days 10 tabs 0RF Discontinued cyanocobalamin (vitamin B-12) Discontinued Reason: Patient Completed Course 1,000 mcg PO DAILY 90 caps 3RF E53.8 - Deficiency of other specified B group vitamins tirzepatide (Mounjaro) Discontinued Reason: Patient Completed Course 7.5 mg (0.5 mL) subcut QWEEK 2 mL 5RF Coding Level of Care Code Est Pt Level 4 (07471) Complex EM visit Add On G2211 Diagnoses Hypovitaminosis D E55.9 Pernicious anemia D51.0 Moderate major depression F32.1 Essential hypertension I10 Type 2 diabetes mellitus with hyperglycemia, with long-term current use of insulin E11.65; Z79.4 Diabetes mellitus retirement insulin use: with retirement use Diabetes mellitus complication status: with hyperglycemia Autoimmune thyroiditis E06.3 Time Spent (min) 22
[2023-10-01 08:24] VITALS: BP 134/80; BMI 32.0
== END 2023-10-01 08:58 | disposition home or self-care (01) ==
PROVIDERS: PCP Internal Medicine; Visit Provider Internal Medicine
DX: E11.65 Type 2 diabetes mellitus with hyperglycemia (principal); F32.1 Major depressive disorder, single episode, moderate; Z79.4 Long term (current) use of insulin; E55.9 Vitamin D deficiency, unspecified; D51.0 Vitamin B12 deficiency anemia due to intrinsic factor deficiency; I10 Essential (primary) hypertension; E06.3 Autoimmune thyroiditis
CPT/HCPCS: 83036; 99214; G2211

== ENCOUNTER 2023-10-02 08:42 | Outpatient (AMB) | payer OTHER, SELFPAY ==
--- NOTE | 2023-10-02 08:44 | MHC.OFFVIS ---
Vital Signs 10/02/23 08:51 Height 5 ft 10 in Weight 224 lb 6 oz BMI 32.2 BP 174/80 H Blood Pressure Location Lt brachial Position Sitting Respiration 16 Pulse 68 Pulse Source Pulse Oximeter Pulse Oximetry (%) 100 Oxygen Delivery Method Room Air Intake Visit Reasons: bilateral rhomboid muscle injection Intake Note: Patient comes in for injection. Reports pain 9/10. Allergies adhesive tape [ADHESIVE TAPE] Allergy (Intermediate, Verified 10/02/23 09:05) RASH pioglitazone [From ACTOS] Allergy (Intermediate, Verified 10/02/23 09:05) facial edema,rash latex Allergy (Mild, Verified 10/02/23 09:05) Rash HPI Comments Details: Anitha ? is is back in my office with complains on pain between the shoulder blades and in the projection of trapezius muscles again. She wants me to perform bilateral rhomboid muscle injection as well as bilateral trapezius muscle. I explained to her that this would be too many sites of the injection she was originally consented for bilateral trapezius and bilateral rhomboid muscle injection but preferred to go for the right side injections only because the pain there is more severe. See description of the procedure is as below. She was explained risks and benefits of the procedure. She is diabetic on insulin pump and she has electronic blood sugar monitoring device which continually monitored the level of her blood sugar therefore the procedure will be safe for her.. In the past she had bilateral RFA L3-L4 does ramus L5 she reports good pain relief on the right she reports continuous cramping sensation in the left lower extremity after the procedure.? She reports very mild lower back pain however reports significant discomfort in the thoracic dorsalgia with most of the pain in the projection of bilateral rhomboid minor muscles.? She continues to take? tizanidine 4 mg t.i.d. to help her cramping.? She is also on topical medications she was performed with diagnostic medial branch block L2-L3 L4-5 bilaterally in 2019.? She received sustained pain relief for 1 year.? I was planning to do T7-T8 T9 vertebra diagnostic medial branch block in the attempt to alleviate her thoracic pain however the patient's health insurance denied this procedure as experimental [facility] Medical History (Updated 10/01/23 @ 16:09 by Analilia Schumacher MD) Physical exam Cellulitis of toe of right foot Hospital discharge follow-up Goiter Onychomycosis Vitamin D deficiency T2DM (type 2 diabetes mellitus) Left ankle pain B12 deficiency Left leg pain Acid reflux History of colonic polyps Chronic fatigue Carpal tunnel syndrome Daytime hypersomnia Autoimmune thyroiditis Fibromyalgia Morbid obesity Spondylosis, thoracic, 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 spine without myelopathy History of ulcer disease Sessile colonic polyp Obesity Tracee's disease 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 (current) use of insulin Diabetic nephropathy associated with type 2 diabetes mellitus Diabetic retinopathy associated with type 2 diabetes mellitus Diabetic polyneuropathy associated with type 2 diabetes mellitus Iron (Fe) deficiency anemia History of Graves' disease Lumbar degenerative disc disease Back pain Anxiety and depression GERD (gastroesophageal reflux disease) Asthma Hyperlipidemia Hypertension Diabetes mellitus Polyarthralgia Surgical History History of carpal tunnel surgery of right wrist H/O endoscopy History of cataract extraction History of lumpectomy of left breast History of carpal tunnel surgery of left wrist Hx of section Hx laparoscopic cholecystectomy Hx of esophagogastroduodenoscopy Hx of colonoscopy H/O gastric bypass Family History Father Diabetes Hypertension Mother Diabetes Hypertension Maternal Grandmother Colon cancer Paternal Aunt Cancer of ear Social History Household Members: Family Housing: House Alcohol intake: never Patient Tobacco Use Status: Former Tobacco user Tobacco use type: Cigarette Cigarette Packs Per Day: 1 Cigarettes Per Day: 20.0 Years Smoked: 20 e-Cigarette/Vaping Use: Never Used Second Hand Smoke Exposure: No service: No Current occupational status: disabled Current occupation: right hand dominant Cognitive needs: No Hearing needs: No Vision needs: Yes Female Reproductive History Menstrual Age of Menarche: 14 Review of Systems Const All systems reviewed & are unremarkable except as noted in HPI and below ENT Reports Normal hearing present Neuro Reports Normal hearing present, Denies Abnormal speech present and Denies Sensory deficit (Neuro) Physical Exam Vital Signs: Last Vital Signs Pulse 68 10/02/23 08:51 Resp 16 10/02/23 08:51 BP 174/80 H 10/02/23 08:51 Pulse Ox 100 10/02/23 08:51 Oxygen Delivery Method Room Air 10/02/23 08:51 BMI result Body Mass Index 32.2 Const General: cooperative, healthy appearing and no acute distress Nutritional Appearance: overweight Orientation/consciousness: patient oriented x3 Limitations: language barrier Eyes Sclerae: sclerae normal Resp Effort & Inspection: normal respiratory effort, able to speak in complete sentences, normal respiratory pattern, no audible wheezes and no cough Cardio Jugular venous distension: no JVD GI Inspection: Yes normal to inspection Auscultation: normal bowel sounds Neuro General: patient oriented x3 Cranial nerves: Yes Normal hearing present Speech: No Abnormal speech present Sensory Exam: No Sensory deficit (Neuro) Psych Appearance: grossly normal and well kempt Attitude: cooperative Assessment & Plan Assessment & Plan (1) Spondylosis of lumbosacral spine without myelopathy: Code(s): M47.817 - Spondylosis without myelopathy or radiculopathy, lumbosacral region Category: Medical (2) Spondylosis, thoracic, without myelopathy: Code(s): M47.814 - Spondylosis without myelopathy or radiculopathy, thoracic region Category: Medical Plan: The patient was positioned sitting on the examination chair and posterior upper back in the projection of rhomboid minor muscles on the right as well as projection of the trapezius muscle on the right were prepped with ChloraPrep. Sterilely obtained bupivacaine 0.5% 10 cc mixed with Kenalog 40 mg was injected in fan-like fashion in the most painful areas for the patient into the projection of both right rhomboid and right trapezius muscles. The patient tolerated procedure well. Band-Aids were applied. The patient was observed for 15 minutes after the procedure and discharged home uneventfully Plan No new appointment is necessary unless patient comes back with pain increase again. She will give us a call. Coding Level of Care Code Est Pt Level 3 (65369) Procedure Only Diagnoses Spondylosis of lumbosacral spine without myelopathy M47.817 Spondylosis, thoracic, without myelopathy M47.814
[2023-10-02 08:51] VITALS: BP 174/80; PULSE 68; RESP 16; O2SAT 100; BMI 32.2
== END 2023-10-02 09:02 | disposition home or self-care (01) ==
PROVIDERS: PCP Internal Medicine; Visit Provider Anesthesiology
DX: M47.817 Spondylosis without myelopathy or radiculopathy, lumbosacral region (principal); M47.814 Spondylosis without myelopathy or radiculopathy, thoracic region; M79.18 Myalgia, other site
CPT/HCPCS: 20552; 99213

== ENCOUNTER → 2023-10-02 08:42 | Outpatient (BNVA) | payer OTHER, SELFPAY | PROVIDERS: PCP Internal Medicine; Visit Provider Anesthesiology | DX: M47.817 Spondylosis without myelopathy or radiculopathy, lumbosacral region (principal); M47.814 Spondylosis without myelopathy or radiculopathy, thoracic region | CPT/HCPCS: 20552; 99212; J0665; J3301 ==

== ENCOUNTER 2023-10-07 07:58 | Outpatient (AMB) | payer OTHER, SELFPAY ==
--- NOTE | 2023-10-07 08:28 | A.OFFVIS_ITS ---
Intake Intake Visit Reasons: Type 1 DM 60 min-confirmed Allergies adhesive tape [ADHESIVE TAPE] Allergy (Intermediate, Verified 10/02/23 09:05) RASH pioglitazone [From ACTOS] Allergy (Intermediate, Verified 10/02/23 09:05) facial edema,rash latex Allergy (Mild, Verified 10/02/23 09:05) Rash HPI Comprehensive Diabetes Asmnt Most Recent Diabetes Results: Hemoglobin A1c 8.3 % 05/14/18 Microalb/Creat Ratio 64.7 ug/mg cr (<30) H 09/30/23 Cholesterol 175 mg/dL (<200) 09/30/23 HDL Cholesterol 69 mg/dL (>40) 09/30/23 Triglycerides 170 mg/dL (<150) H 09/30/23 Creatinine 0.72 mg/dL (0.5-1.4) 09/30/23 Blood Urea Nitrogen 9 mg/dL (9-16) 09/30/23 Sodium 135 mmol/L (135-145) 09/30/23 Potassium 3.9 mmol/L (3.3-5.1) 09/30/23 Chloride 101 mmol/L (96-108) 09/30/23 Carbon Dioxide 25 mmol/L (22-29) 09/30/23 Calcium 9.3 mg/dL (8.4-10.2) 09/30/23 AST 15 U/L (5-31) 09/30/23 ALT 20 U/L (0-31) 09/30/23 Total Protein 7.5 g/dL (6.5-8.0) 09/30/23 Albumin 4.0 g/dL (3.5-5.0) 09/30/23 [facility] Medical History (Updated 10/01/23 @ 16:09 by Analilia Schumacher MD) Physical exam Cellulitis of toe of right foot Hospital discharge follow-up Goiter Onychomycosis Vitamin D deficiency T2DM (type 2 diabetes mellitus) Left ankle pain B12 deficiency Left leg pain Acid reflux History of colonic polyps Chronic fatigue Carpal tunnel syndrome Daytime hypersomnia Autoimmune thyroiditis Fibromyalgia Morbid obesity Spondylosis, thoracic, 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 spine without myelopathy History of ulcer disease Sessile colonic polyp Obesity Tracee's disease 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 Diabetic nephropathy associated with type 2 diabetes mellitus Diabetic retinopathy associated with type 2 diabetes mellitus Diabetic polyneuropathy associated with type 2 diabetes mellitus Iron (Fe) deficiency anemia History of Graves' disease Lumbar degenerative disc disease Back pain Anxiety and depression GERD (gastroesophageal reflux disease) Asthma Hyperlipidemia Hypertension Diabetes mellitus Polyarthralgia Surgical History History of carpal tunnel surgery of right wrist H/O endoscopy History of cataract extraction History of lumpectomy of left breast History of carpal tunnel surgery of left wrist Hx of section Hx laparoscopic cholecystectomy Hx of esophagogastroduodenoscopy Hx of colonoscopy H/O gastric bypass Family History Father Diabetes Hypertension Mother Diabetes Hypertension Maternal Grandmother Colon cancer Paternal Aunt Cancer of ear Social History Household Members: Family Housing: House Alcohol intake: never Patient Tobacco Use Status: Former Tobacco user Tobacco use type: Cigarette Cigarette Packs Per Day: 1 Cigarettes Per Day: 20.0 Years Smoked: 20 e-Cigarette/Vaping Use: Never Used Second Hand Smoke Exposure: No service: No Current occupational status: disabled Current occupation: right hand dominant Cognitive needs: No Hearing needs: No Vision needs: Yes Female Reproductive History Menstrual Age of Menarche: 14 Assessment & Plan Assessment & Plan (1) T2DM (type 2 diabetes mellitus): Code(s): E11.9 - Type 2 diabetes mellitus without complications Qualifiers: Diabetes mellitus termination clerk insulin use: with alf use Diabetes mellitus complication status: with hyperglycemia Qualified Code(s): E11.65 - Type 2 diabetes mellitus with hyperglycemia; Z79.4 - 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) use of insulin Plan: Patient presents for pump training for T slim with control IQ, and Dexcom G6 Patient uses Humulin U 500 in insulin pump The following topics were reviewed today: Effects of steroid injections on glucose levels Importance of manual correction Pairing insulin pump to T connect deya - Sensor setting (if applicable) ?? High Alert: 180 mg/dl ??? Low Alert: 80 mg/dl Patient's average glucose past 14 days 257 mg/dL Patient above target 82% Patient at target 18% Patient below target 0% Patient reports that she recently had steroid injection for pain, since in jection glucose levels have been elevated Reviewed with patient the importance of manually correcting through insulin pump instead of waiting for automated correction 1 glucose levels are high. Discuss the option of setting up temp basal while glucose levels are elevated, but this would require shutting off control IQ. Patient reports that she will be more vigilant about manual corrections while glucoses are elevated Due to steroid injection we will not make changes to insulin pump settings today, patient will follow-up with community educator after appointment with Dr. Aguayo on 10/29/2023. Will review pump settings at that visit. Patient is now on Mounjaro 7.5 mg Tandem ID: [email or web address]: [email or web address] Safety information: Patient understands the basic concepts of pump therapy, how to give insulin for meals and snacks, how to troubleshoot for hyper and hypoglycemia. Importance of a backup plan, for manual injections, proper prescriptions and emergency supplies ketone strips, and rules for testing for ketones Patient reports she has U 500 syringes at home in case she needs to use diabetes backup plan Setting verified by [facility], no changes made at today's visit Basal rate(s) (units/hour) : 12 AM? to 5 AM? 0.5 units / hr 5 AM? to 12 PM? 0.725 units / hr 12 PM to 5 PM 0.725 units / hr 5 PM to 12 AM 0.8 units / hr? Bolus setting Insulin Carbohydrate Ratio (s) 5 AM to 12 AM 1:5 Correction Factor / Sensitivity Factor 12 AM? to 12 AM? 1:35 Active Insulin Time:? 5 hours Target(s): Control IQ 12 AM? to 12 AM? 110 mg/dL Coding Level of Care Code Est Pt Level 1 (45754) Diagnoses Type 2 diabetes mellitus with hyperglycemia, with long-term current use of insulin E11.65; Z79.4 Diabetes mellitus termination clerk insulin use: with termination clerk use Diabetes mellitus complication status: with hyperglycemia
== END 2023-10-07 08:30 | disposition home or self-care (01) ==
PROVIDERS: PCP Internal Medicine; Visit Provider Registered Nurse Diabetes Educator
DX: E11.65 Type 2 diabetes mellitus with hyperglycemia (principal); Z79.4 Long term (current) use of insulin

== ENCOUNTER → 2023-10-07 07:58 | Outpatient (BNVA) | payer OTHER, SELFPAY | PROVIDERS: PCP Internal Medicine; Visit Provider Registered Nurse Diabetes Educator | DX: E11.42 Type 2 diabetes mellitus with diabetic polyneuropathy (principal); E11.21 Type 2 diabetes mellitus with diabetic nephropathy; E11.319 Type 2 diabetes mellitus with unspecified diabetic retinopathy without macular edema; E11.65 Type 2 diabetes mellitus with hyperglycemia; Z79.4 Long term (current) use of insulin; Z96.41 Presence of insulin pump (external) (internal); Z46.81 Encounter for fitting and adjustment of insulin pump | CPT/HCPCS: 99211 ==

== ENCOUNTER 2023-10-29 07:52 | Outpatient (AMB) | payer OTHER, SELFPAY ==
--- NOTE | 2023-10-29 08:01 | A.OFFVIS_ITS ---
Vital Signs 10/29/23 08:04 Height 5 ft 10 in Weight 220 lb 7.396 oz BMI 31.6 BP 146/90 H Blood Pressure Location Rt brachial Position Sitting Pulse 100 Pulse Source Pulse Oximeter Intake Visit Reasons: T2DM/CONFIRMED Intake Note: Patient present today to follow up on Type 2 Diabetes Mellitus. Last Diabetic Eye exam: 10/2022, next appt soon Last Podiatry Visit: 09/2023, next appt on 11/2023 Random Glucose: 166 mg/dL, Today Most Recent HgA1C: 9.9%, 10/01/23 Coremaking Machine Setter Required: Yes Coremaking Machine Setter Language: Round Up Ring Hand Services: Coremaking Machine Setter Present Coremaking Machine Setter Name: LASHONDA Jenkins/PAUL CHICAS Information Interpreted: non-clinical & clinical Accompanied by: Self / Same As Patient Allergies adhesive tape [ADHESIVE TAPE] Allergy (Intermediate, Verified 10/29/23 08:04) RASH pioglitazone [From ACTOS] Allergy (Intermediate, Verified 10/29/23 08:04) facial edema,rash latex Allergy (Mild, Verified 10/29/23 08:04) Rash HPI Comments Details: 48 YO F with PMHx T2DM who is seen in F/U for the same. She has a history of prior bariatric surgery in June of 2015. The patient last saw Dr. Aguayo 08/06/2023 and Kae PACE 10/07/2023. Current regimen Canagliflozin 300 mg PO daily Mounjaro 10 mg once per week and Humulin U-500 in a tandem insulin pump. Pump Settings:with U500 insulin Basal rate(s) (units/hour) : 12 AM? to 5 AM? 0.5 units / hr new 0.6 5 AM? to 12 PM? 0.725 units / hr new 0.825 12 PM to 5 PM 1.0 units / hr new 1.1 5 PM to 12 AM 1.0 units / hr? new 1.1 Bolus setting Insulin Carbohydrate Ratio (s) 12 AM? to 5 AM? 1:7 5 AM to 12 AM 1:5 Correction Factor / Sensitivity Factor 12 AM? to 5AM? 1:40 5AM to 12AM 1:35 target glucose 120 Active Insulin Time:? 4 hours Target(s): Control IQ 12 AM? to 12 AM? 110 mg/dL Had a low yesterday. . Has symptoms with hypoglycemia. Treats with whatever she has with her. At times uses nuts. She does not accurately count carbs. Has a positive Family history of T2DM. Has eyes checked yearly, last eye exam 11/16 has retinopathy. Scheduled for 11/17 Has neuropathy. Complaints of numbness and tingling. Has nephropathy, on Lisinopril 5 mg PO daily. microalbumin 09/2023 71 Has HLD, on rosuvastatin 10 mg PO daily. ldl 72 10/17 Denies CAD. Diet: Does follow a low carb diet. Has met with a registered dietitian numerous times. Weight: Stable. Has been going to diabetes education. [facility] screen Fibrosis-4 (Fib-4) Index for liver fibrosis (calculated on lab work done: ) [ ] points Advanced fibrosis [ ] Approximate Fibrosis stage Stefan [ ] *Use with caution in patients <35 or >65 years old, as the score has been shown to be less reliable in these patients. Prior Imaging [] Action Plan: [] rescreen two years from date of screening labs[ ] [facility] Medical History (Updated 10/29/23 @ 08:48 by Rand Campos NP) Uncontrolled type 2 diabetes mellitus with hyperglycemia Physical exam Cellulitis of toe of right foot Hospital discharge follow-up Goiter Onychomycosis Vitamin D deficiency T2DM (type 2 diabetes mellitus) Left ankle pain B12 deficiency Left leg pain Acid reflux History of colonic polyps Chronic fatigue Carpal tunnel syndrome Daytime hypersomnia Autoimmune thyroiditis Fibromyalgia Morbid obesity Spondylosis, thoracic, 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 spine without myelopathy History of ulcer disease Sessile colonic polyp Obesity 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 Diabetic nephropathy associated with type 2 diabetes mellitus Diabetic retinopathy associated with type 2 diabetes mellitus Diabetic polyneuropathy associated with type 2 diabetes mellitus Iron (Fe) deficiency anemia History of Graves' disease Lumbar degenerative disc disease Back pain Anxiety and depression GERD (gastroesophageal reflux disease) Asthma Hyperlipidemia Hypertension Diabetes mellitus Polyarthralgia Surgical History History of carpal tunnel surgery of right wrist H/O endoscopy History of cataract extraction History of lumpectomy of left breast History of carpal tunnel surgery of left wrist Hx of section Hx laparoscopic cholecystectomy Hx of esophagogastroduodenoscopy Hx of colonoscopy H/O gastric bypass Family History Father Diabetes Hypertension Mother Diabetes Hypertension Maternal Grandmother Colon cancer Paternal Aunt Cancer of ear Social History Household Members: Family Housing: House Alcohol intake: never Patient Tobacco Use Status: Former Tobacco user Tobacco use type: Cigarette Cigarette Packs Per Day: 1 Cigarettes Per Day: 20.0 Years Smoked: 20 e-Cigarette/Vaping Use: Never Used Second Hand Smoke Exposure: No service: No Current occupational status: disabled Current occupation: right hand dominant Cognitive needs: No Hearing needs: No Vision needs: Yes Female Reproductive History Menstrual Age of Menarche: 14 Physical Exam Vital Signs: Last Vital Signs Pulse 100 10/29/23 08:04 BP 146/90 H 10/29/23 08:04 BMI result Body Mass Index 31.6 Const Other: Absence of Cushingoid features. Absence of acromegalic features. Neck exam reveals nl size thyroid about 15 gms. No thyroid nodules palpable. No carotid bruits present. Lungs CTA. Heart S1 S2, Reg R/R. No M/R G. Skin exam reveals absence of vitiligo or acanthosis nigricans. Small area of enlargement on left clavicle (had had negative xray clavicle through PCP) Extrem Other: Visual exam of foot performed. No ulcerations or open lesions. No onchomycosis, no callouses. No interdigit callusing or fissuring. Sensation intact to monofilament exam. Vibratory sensation is normal with 128 Hz tuning fork. Results Reviewed Results Reviewed: Laboratory Last Values Glucose (Clinic) 166 mg/dL (60-115) H 10/29/23 08:08 Laboratory Tests 05/26/23 09/30/23 10/01/23 08:22 07:11 08:21 Plt Count 297 Hgb A1c (Clinic) 8.9 H 9.9 H AST 15 ALT 20 Triglycerides 170 H Cholesterol 175 LDL Cholesterol, Calc 72 HDL Cholesterol 69 25-OH Vitamin D Total 12.7 L TSH 2.86 Urine Creatinine 109.58 Urine Microalbumin 71.0 Microalb/Creat Ratio 64.7 H Assessment & Plan Assessment & Plan (1) Uncontrolled type 2 diabetes mellitus with hyperglycemia: Code(s): E11.65 - Type 2 diabetes mellitus with hyperglycemia Category: Medical Plan: 48-year-old type 2 diabetic status post bariatric surgery 2016, neuropathy, retinopathy and nephropathy with poor glycemic control Pumo settings were changed today. Extensively reviewed need to get diabetes under control. She is not entering in all her carbohydrate g and has committed to do so over the next week and will see me back in 1 week. Kae Penn CDE and myself will work with her intensively over the next 3 months to get her in better control. Back up method 35 units of u500 tid. Requesting CDE review this with patient when she sees her today Medications: New acetone (urine) test (Ketone Urine Test strips) As directed glucose over 300, illness, nausea, vomiting t.i.d. 50 ea 1RF E11.65 - Type 2 diabetes mellitus with hyperglycemia glucagon 3 mg/actuation (Baqsimi) administer x 1 May repeat in 15 minutes if needed 3 mg intranasal .prn 30 days PRN 2 ea 1RF Unresponsive hypoglycemia MDD 6 mg E11.65 - Type 2 diabetes mellitus with hyperglycemia [glucose tablets 5 g] 3 tablets to treat a low repeat in 15 min as 6 needed until glucose above 80 orally PRN PRN; 15 grams PO .prn 30 days PRN 30 tabs 11RF low glucose MDD 12 tablets Patient Instructions: The patient was counseled to always carry a source of sugar and on the rule of 15's: Take 3 glucose tablets and repeat again in 15 minutes if blood sugar is not in normal range. Continue to repeat every 15 minutes until blood sugar is normal. The patient was counseled to achieve a target A1C of 7% (154 avg). Fasting blood sugars should be 90-130 in the morning and less than 180 two hours after meals. Reviewed the relationship between poor diabetic control and the developement of complications Symptoms of DKA were reviewed: early: frequent urination, dry mouth, fatigue, feeling ill, severe symptoms: ketones in the urine, abdominal pain, nausea, vomiting and weakness. It is important to hydrate with sugar free liquids every 30 minutes and bring the sugars down to normal levels. Coding Level of Care Code Est Pt Level 5 (98283) Complex EM visit Add On G2211 Diagnoses Uncontrolled type 2 diabetes mellitus with hyperglycemia E11.65 Time Spent (min) 45 Comment Reviewing labs/provider notes, glucose sensor/pump reports, face to face, chart doc
[2023-10-29 08:04] VITALS: BP 146/90; PULSE 100; BMI 31.6
[2023-10-29 08:13] LABS: Glucose, Whole Blood 166 mg/dL (60-115)
== END 2023-10-29 08:57 | disposition home or self-care (01) ==
PROVIDERS: PCP Internal Medicine; Visit Provider Nurse Practitioner Adult Health
DX: E11.65 Type 2 diabetes mellitus with hyperglycemia (principal)
CPT/HCPCS: 99215; G2211

== ENCOUNTER 2023-10-29 07:52 | Outpatient (AMB) | payer OTHER, SELFPAY ==
--- NOTE | 2023-10-29 08:41 | A.OFFVIS_ITS ---
Intake Intake Visit Reasons: 30 Min/CONFIRMED Swiss Machinist Required: Yes Swiss Machinist Language: Senior Insight Manager Name: Valerie [id number] Information Interpreted: non-clinical & clinical Accompanied by: Self / Same As Patient Allergies adhesive tape [ADHESIVE TAPE] Allergy (Intermediate, Verified 10/29/23 08:04) RASH pioglitazone [From ACTOS] Allergy (Intermediate, Verified 10/29/23 08:04) facial edema,rash latex Allergy (Mild, Verified 10/29/23 08:04) Rash HPI Comprehensive Diabetes Asmnt Most Recent Diabetes Results: Hemoglobin A1c 8.3 % 05/14/18 Microalb/Creat Ratio 64.7 ug/mg cr (<30) H 09/30/23 Cholesterol 175 mg/dL (<200) 09/30/23 HDL Cholesterol 69 mg/dL (>40) 09/30/23 Triglycerides 170 mg/dL (<150) H 09/30/23 Creatinine 0.72 mg/dL (0.5-1.4) 09/30/23 Blood Urea Nitrogen 9 mg/dL (9-16) 09/30/23 Sodium 135 mmol/L (135-145) 09/30/23 Potassium 3.9 mmol/L (3.3-5.1) 09/30/23 Chloride 101 mmol/L (96-108) 09/30/23 Carbon Dioxide 25 mmol/L (22-29) 09/30/23 Calcium 9.3 mg/dL (8.4-10.2) 09/30/23 AST 15 U/L (5-31) 09/30/23 ALT 20 U/L (0-31) 09/30/23 Total Protein 7.5 g/dL (6.5-8.0) 09/30/23 Albumin 4.0 g/dL (3.5-5.0) 09/30/23 [facility] Medical History (Updated 10/29/23 @ 08:48 by Rand Campos NP) Uncontrolled type 2 diabetes mellitus with hyperglycemia Physical exam Cellulitis of toe of right foot Hospital discharge follow-up Goiter Onychomycosis Vitamin D deficiency T2DM (type 2 diabetes mellitus) Left ankle pain B12 deficiency Left leg pain Acid reflux History of colonic polyps Chronic fatigue Carpal tunnel syndrome Daytime hypersomnia Autoimmune thyroiditis Fibromyalgia Morbid obesity Spondylosis, thoracic, 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 spine without myelopathy History of ulcer disease Sessile colonic polyp Obesity 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's disease 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 Diabetic nephropathy associated with type 2 diabetes mellitus Diabetic retinopathy associated with type 2 diabetes mellitus Diabetic polyneuropathy associated with type 2 diabetes mellitus Iron (Fe) deficiency anemia History of Graves' disease Lumbar degenerative disc disease Back pain Anxiety and depression GERD (gastroesophageal reflux disease) Asthma Hyperlipidemia Hypertension Diabetes mellitus Polyarthralgia Surgical History History of carpal tunnel surgery of right wrist H/O endoscopy History of cataract extraction History of lumpectomy of left breast History of carpal tunnel surgery of left wrist Hx of section Hx laparoscopic cholecystectomy Hx of esophagogastroduodenoscopy Hx of colonoscopy H/O gastric bypass Family History Father Diabetes Hypertension Mother Diabetes Hypertension Maternal Grandmother Colon cancer Paternal Aunt Cancer of ear Social History Household Members: Family Housing: House Alcohol intake: never Patient Tobacco Use Status: Former Tobacco user Tobacco use type: Cigarette Cigarette Packs Per Day: 1 Cigarettes Per Day: 20.0 Years Smoked: 20 e-Cigarette/Vaping Use: Never Used Second Hand Smoke Exposure: No service: No Current occupational status: disabled Current occupation: right hand dominant Cognitive needs: No Hearing needs: No Vision needs: Yes Female Reproductive History Menstrual Age of Menarche: 14 Assessment & Plan Assessment & Plan (1) Uncontrolled type 2 diabetes mellitus with hyperglycemia: Code(s): E11.65 - Type 2 diabetes mellitus with hyperglycemia Plan: Patient presents for pump training for T slim with control IQ, and Dexcom G6 Patient uses Humulin U 500 in insulin pump The following topics were reviewed today: Effects of steroid injections on glucose levels Importance of manual correction Pairing insulin pump to T connect dyea - Sensor setting (if applicable) ?? High Alert: 180 mg/dl ??? Low Alert: 80 mg/dl Patient's average glucose past 14 days 295 mg/dL Patient above target 86% Patient at target 13% Patient below target 0.4% Patient continues to have hyperglycemia, patient saw SATELLITE TV TECHNICIAN INSTALLER today SATELLITE TV TECHNICIAN INSTALLER made adjustments to basal rates, patient will be following up with SATELLITE TV TECHNICIAN INSTALLER in 1 week Patient is now on Mounjaro 7.5 mg, although her prescription reads Mounjaro 10 mg, the pharmacy has been on able to obtain that dose Patient does report using less insulin in her insulin pump as Mounjaro dose increases Tandem ID: Tandem password: [id number] Safety information: Patient understands the basic concepts of pump therapy, how to give insulin for meals and snacks Reminded patient best practice is to take manual injection when correcting for hyperglycemia Patient reports she had hypoglycemic event overnight on 10/28/2023, patient reports she used milk to treat hypoglycemia Reviewed with patient how to treat hypoglycemia with rule of 15s Importance of a backup plan, for manual injections, proper prescriptions and emergency supplies ketone strips, and rules for testing for ketones Patient reports she has U 500 syringes at home in case she needs to use diabetes backup plan Setting verified by CDCES, no changes made at today's visit Pump Settings:with U500 insulin Basal rate(s) (units/hour) : 12 AM? to 5 AM? 0.5 units / hr new 0.6 5 AM? to 12 PM? 0.725 units / hr new 0.825 12 PM to 5 PM 1.0 units / hr new 1.1 5 PM to 12 AM 1.0 units / hr? new 1.1 Bolus setting Insulin Carbohydrate Ratio (s) 12 AM? to 5 AM? 1:7 5 AM to 12 AM 1:5 Correction Factor / Sensitivity Factor 12 AM? to 5 AM?1:40 5 AM? to 12 AM? 1:35 Active Insulin Time:? 5 hours Target(s): Control IQ 12 AM? to 12 AM? 110 mg/dL Patient Instructions: Patient will follow-up with community educator in 1 month Coding Level of Care Code Est Pt Level 1 (71659) Diagnoses Uncontrolled type 2 diabetes mellitus with hyperglycemia E11.65
== END 2023-10-29 08:56 | disposition home or self-care (01) ==
PROVIDERS: PCP Internal Medicine; Visit Provider Registered Nurse Diabetes Educator
DX: E11.65 Type 2 diabetes mellitus with hyperglycemia (principal)

== ENCOUNTER → 2023-10-29 07:52 | Outpatient (BNVA) | payer OTHER, SELFPAY | PROVIDERS: PCP Internal Medicine; Visit Provider Registered Nurse Diabetes Educator | DX: E11.65 Type 2 diabetes mellitus with hyperglycemia (principal); Z79.4 Long term (current) use of insulin; Z96.41 Presence of insulin pump (external) (internal) | CPT/HCPCS: 82947; 99211; 99212 ==

== ENCOUNTER 2023-11-19 09:51 | Outpatient (AMB) | payer OTHER, SELFPAY ==
--- NOTE | 2023-11-19 10:00 | AM.OFFVISNUR ---
Intake Visit Reasons: B-12 Allergies adhesive tape [ADHESIVE TAPE] Allergy (Intermediate, Verified 10/29/23 08:04) RASH pioglitazone [From ACTOS] Allergy (Intermediate, Verified 10/29/23 08:04) facial edema,rash latex Allergy (Mild, Verified 10/29/23 08:04) Rash Nursing Note B12 injection was administered by Rosemarie Borges. Office Meds cyanocobalamin (vitamin B-12) 1,000 mcg/mL injection solution Performing Provider: Analilia Schumacher MD [facility] Administered by: Rosemarie Borges LPN on 11/19/23 10:09 Dose Route Admin Location Dispensed Lot Number Expiration Date [facility] [employer] Compounder 1,000 mcg IM 1 mL [id number] 12/24/24 01941-765-51 [employer] Assessment & Plan Assessment & Plan Orders: Orders AMB Vitamin B12 Injection Patient Supplied 11/19/23 E53.8 - Deficiency of other specified B group vitamins
--- NOTE | 2023-12-11 09:09 | AM.OFFVISNUR ---
Intake Visit Reasons: B-12 Allergies adhesive tape [ADHESIVE TAPE] Allergy (Intermediate, Verified 10/29/23 08:04) RASH pioglitazone [From ACTOS] Allergy (Intermediate, Verified 10/29/23 08:04) facial edema,rash latex Allergy (Mild, Verified 10/29/23 08:04) Rash Office Meds cyanocobalamin (vitamin B-12) 1,000 mcg/mL injection solution Performing Provider: Analilia Schumacher MD [facility] Administered by: Rosemarie Borges LPN on 11/19/23 10:09 Dose Route Admin Location Dispensed Lot Number Expiration Date [place] Rodent Control Worker 1,000 mcg IM 1 mL [id number] Assessment & Plan Assessment & Plan Orders: Orders AMB Vitamin B12 Injection Patient Supplied 11/19/23 E53.8 - Deficiency of other specified B group vitamins
== END 2023-11-19 10:10 | disposition home or self-care (01) ==
PROVIDERS: PCP Internal Medicine; Visit Provider Internal Medicine
DX: E53.8 Deficiency of other specified B group vitamins (principal)
CPT/HCPCS: J3420

== ENCOUNTER → 2023-11-19 09:51 | Outpatient (BNVA) | payer OTHER, SELFPAY | PROVIDERS: PCP Internal Medicine; Visit Provider Internal Medicine | DX: E53.8 Deficiency of other specified B group vitamins (principal) | CPT/HCPCS: 96372 ==

== ENCOUNTER 2023-12-01 07:57 | Outpatient (AMB) | payer OTHER, SELFPAY ==
--- NOTE | 2023-12-01 08:03 | MHC.AMDMED ---
Intake Intake Visit Reasons: 30 min-lvm Pharmacy District Manager Required: Yes Pharmacy District Manager Language: Continuous Pickling Line Pickler Helper Name: Shanae [facility] Accompanied by: Self / Same As Patient Allergies adhesive tape [ADHESIVE TAPE] Allergy (Intermediate, Verified 10/29/23 08:04) RASH pioglitazone [From ACTOS] Allergy (Intermediate, Verified 10/29/23 08:04) facial edema,rash latex Allergy (Mild, Verified 10/29/23 08:04) Rash HPI Comprehensive Diabetes Asmnt Most Recent Diabetes Results: Hemoglobin A1c 8.3 % 05/14/18 Microalb/Creat Ratio 64.7 ug/mg cr (<30) H 09/30/23 Cholesterol 175 mg/dL (<200) 09/30/23 HDL Cholesterol 69 mg/dL (>40) 09/30/23 Triglycerides 170 mg/dL (<150) H 09/30/23 Creatinine 0.72 mg/dL (0.5-1.4) 09/30/23 Blood Urea Nitrogen 9 mg/dL (9-16) 09/30/23 Sodium 135 mmol/L (135-145) 09/30/23 Potassium 3.9 mmol/L (3.3-5.1) 09/30/23 Chloride 101 mmol/L (96-108) 09/30/23 Carbon Dioxide 25 mmol/L (22-29) 09/30/23 Calcium 9.3 mg/dL (8.4-10.2) 09/30/23 AST 15 U/L (5-31) 09/30/23 ALT 20 U/L (0-31) 09/30/23 Total Protein 7.5 g/dL (6.5-8.0) 09/30/23 Albumin 4.0 g/dL (3.5-5.0) 09/30/23 [facility] Medical History (Updated 10/29/23 @ 08:48 by Rand Campos NP) Uncontrolled type 2 diabetes mellitus with hyperglycemia Physical exam Cellulitis of toe of right foot Hospital discharge follow-up Goiter Onychomycosis Vitamin D deficiency T2DM (type 2 diabetes mellitus) Left ankle pain B12 deficiency Left leg pain Acid reflux History of colonic polyps Chronic fatigue Carpal tunnel syndrome Daytime hypersomnia Autoimmune thyroiditis Fibromyalgia Morbid obesity Spondylosis, thoracic, 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 spine without myelopathy History of ulcer disease Sessile colonic polyp Obesity Tracee's disease 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 Diabetic nephropathy associated with type 2 diabetes mellitus Diabetic retinopathy associated with type 2 diabetes mellitus Diabetic polyneuropathy associated with type 2 diabetes mellitus Iron (Fe) deficiency anemia History of Graves' disease Lumbar degenerative disc disease Back pain Anxiety and depression GERD (gastroesophageal reflux disease) Asthma Hyperlipidemia Hypertension Diabetes mellitus Polyarthralgia Surgical History History of carpal tunnel surgery of right wrist H/O endoscopy History of cataract extraction History of lumpectomy of left breast History of carpal tunnel surgery of left wrist Hx of section Hx laparoscopic cholecystectomy Hx of esophagogastroduodenoscopy Hx of colonoscopy H/O gastric bypass Family History Father Diabetes Hypertension Mother Diabetes Hypertension Maternal Grandmother Colon cancer Paternal Aunt Cancer of ear Social History Household Members: Family Housing: House Alcohol intake: never Patient Tobacco Use Status: Former Tobacco user Tobacco use type: Cigarette Cigarette Packs Per Day: 1 Cigarettes Per Day: 20.0 Years Smoked: 20 e-Cigarette/Vaping Use: Never Used Second Hand Smoke Exposure: No service: No Current occupational status: disabled Current occupation: right hand dominant Cognitive needs: No Hearing needs: No Vision needs: Yes Female Reproductive History Menstrual Age of Menarche: 14 Assessment & Plan Assessment & Plan (1) Uncontrolled type 2 diabetes mellitus with hyperglycemia: Code(s): E11.65 - Type 2 diabetes mellitus with hyperglycemia Plan: Patient presents for pump training for T slim with control IQ, and Dexcom G7 Patient uses Humulin U 500 in insulin pump The following topics were reviewed today: Importance of manual correction Pairing insulin pump to T connect deya - Sensor setting (if applicable) ?? High Alert: 180 mg/dl ??? Low Alert: 80 mg/dl Unable to get accurate downloaded patient's pump today We reconnected insulin pump to patient's cell phone deya again, to attempts to download patient's insulin pump in glucose were unsuccessful Patient is complaining of overnight hypos approximately 2-3 a.m., an occasional afternoon hypoglycemia between 3-5 p.m. Patient reports bolusing 30-45 minutes prior to coffee in the morning and before meals. Patient is still on Mounjaro 7.5 mg, although her prescription reads Mounjaro 10 mg, the pharmacy has been on able to obtain that dose Patient does report using less insulin in her insulin pump as Mounjaro dose increases Tandem ID: [email or web address] Tandem password: [email or web address] Safety information: Patient understands the basic concepts of pump therapy, how to give insulin for meals and snacks Reviewed with patient off pump insulin plan, U 500 35 units t.i.d. Importance of a backup plan, for manual injections, proper prescriptions and emergency supplies ketone strips, and rules for testing for ketones Patient reports she has U 500 syringes at home in case she needs to use diabetes backup plan Setting verified by CDCES, Pump Settings:with U500 insulin Basal rate(s) (units/hour) : 12 AM? to 5 AM? 0.6 units / hr 5 AM? to 12 PM? 0.825 units / hr 12 PM to 5 PM 1.1 units / hr 5 PM to 12 AM 1.0 units / hr? new 1.0 units / hr? Bolus setting Insulin Carbohydrate Ratio (s) 12 AM? to 5 AM? 1:7 New 12 AM? to 5 AM? 1:6 5 AM to 12 AM 1:5 Correction Factor / Sensitivity Factor 12 AM? to 5 AM?1:40 5 AM? to 12 AM? 1:35 Active Insulin Time:? 5 hours Target(s): Control IQ 12 AM? to 12 AM? 110 mg/dL Coding Level of Care Code Est Pt Level 1 (94667) Diagnoses Uncontrolled type 2 diabetes mellitus with hyperglycemia E11.65
== END 2023-12-01 08:44 | disposition home or self-care (01) ==
PROVIDERS: PCP Internal Medicine; Visit Provider Registered Nurse Diabetes Educator
DX: E11.65 Type 2 diabetes mellitus with hyperglycemia (principal)

== ENCOUNTER → 2023-12-01 07:57 | Outpatient (BNVA) | payer OTHER, SELFPAY | PROVIDERS: PCP Internal Medicine; Visit Provider Registered Nurse Diabetes Educator | DX: E11.65 Type 2 diabetes mellitus with hyperglycemia (principal); E11.21 Type 2 diabetes mellitus with diabetic nephropathy; E11.42 Type 2 diabetes mellitus with diabetic polyneuropathy; E11.319 Type 2 diabetes mellitus with unspecified diabetic retinopathy without macular edema; Z79.4 Long term (current) use of insulin; Z96.41 Presence of insulin pump (external) (internal); Z46.81 Encounter for fitting and adjustment of insulin pump | CPT/HCPCS: 99211 ==

== ENCOUNTER 2023-12-12 07:56 | Outpatient (AMB) | payer OTHER, SELFPAY ==
--- NOTE | 2023-12-12 07:59 | A.OFFVIS_ITS ---
Vital Signs 12/12/23 08:03 Height 5 ft 10 in Weight 218 lb 4.122 oz BMI 31.3 BP 140/80 H Blood Pressure Location Rt brachial Position Sitting Pulse 68 Pulse Source Pulse Oximeter Intake Visit Reasons: DM/CONFIRMED Intake Note: Patient present today to follow up on Type 2 Diabetes Mellitus. Last Diabetic Eye exam: 12/2023, next appt soon Last Podiatry Visit: 09/2023, next appt on 11/2023 Most Recent HgA1C: 9.9%, 10/01/2023 Random Glucose: 167 mg/dL, Today Shipping And Receiving Specialist Required: Yes Shipping And Receiving Specialist Language: Emt I/85 Services: Shipping And Receiving Specialist Present Shipping And Receiving Specialist Name: LASHONDA Jenkins/PAUL CHICAS Information Interpreted: non-clinical & clinical Accompanied by: Self / Same As Patient Allergies adhesive tape [ADHESIVE TAPE] Allergy (Intermediate, Verified 10/29/23 08:04) RASH pioglitazone [From ACTOS] Allergy (Intermediate, Verified 10/29/23 08:04) facial edema,rash latex Allergy (Mild, Verified 10/29/23 08:04) Rash HPI Comments Details: 48 YO F with PMHx T2DM who is seen in F/U for the same. She is on an insulin pump with Humulin U500. She has a history of prior bariatric surgery in June of 2015. The patient last saw myself in early October and Kae PACE 12/01/2023 at which time her settings were adjusted to prevent morning and afternoon lows. She has an appointment to follow up with Kae PACE to switch over to U 200 insulin. Current regimen Humulin U-500 in a tandem insulin pump. Canagliflozin 300 mg PO daily Mounjaro 7.5mg once per week Has a positive Family history of T2DM. Has eyes checked yearly, last eye exam 11/16 has retinopathy. Scheduled for 01/17 Has neuropathy. Complaints of numbness and tingling, she has been unable to see the cargo and container inspector as she has not been able to make an appointment as there is no bilingual staff in the office. She will ask her son to make this appointment for her and to accompany her to the appointment. Has nephropathy, on Lisinopril 5 mg PO daily. microalbumin 09/2023 71 eGFR>60 Has HLD, on rosuvastatin 10 mg PO daily. ldl 72 10/17 Denies CAD. Diet: Does follow a low carb diet. Has met with a registered dietitian numerous times. She is entering carbohydrates an hour before the meals. Weight: Stable. Has been going to diabetes education. She has an appointment to switch over to U 200 insulin which will require adjustments to her pump. She has received the insulin from the pharmacy [facility] average glucose: 297 14 day continuous glucose monitor report reviewed Days with CGM data 59.8 % TIme in ranges: 77 % very high (above 250) 13 % high ?(181-250) 10 % in range ?(70-180] 0 % low (69-55) 0 % ?very low (below 54) Coefficient of variation 26.8% desired less than 36 Interpretation [having significant postprandial elevations after eating ] U500 insulin Basal rate(s) (units/hour) : 12 AM? to 5 AM? 0.6 units / hr 5 AM? to 12 PM? 0.825 units / hr 12 PM to 5 PM 1.1 units / hr 5 PM to 12 AM 1.0 units / hr? Bolus setting Insulin Carbohydrate Ratio (s) 12 AM? to 5 AM? 1:6 5 AM to 12 PM 12 pm to 5PM 1:5 new4.5 5PM 5 new 1:4.5 Correction Factor / Sensitivity Factor 12 AM? to 5 AM?1:40 5 AM? to 12 AM? 1:35 Active Insulin Time:? 5 hours Target(s): Control IQ 12 AM? to 12 AM? 110 mg/dL [facility] Medical History (Updated 10/29/23 @ 08:48 by Rand Campos NP) Uncontrolled type 2 diabetes mellitus with hyperglycemia Physical exam Cellulitis of toe of right foot Hospital discharge follow-up Goiter Onychomycosis Vitamin D deficiency T2DM (type 2 diabetes mellitus) Left ankle pain B12 deficiency Left leg pain Acid reflux History of colonic polyps Chronic fatigue Carpal tunnel syndrome Daytime hypersomnia Autoimmune thyroiditis Fibromyalgia Morbid obesity Spondylosis, thoracic, 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 spine without myelopathy History of ulcer disease Sessile colonic polyp Obesity Tracee's disease long term care social worker (current) use of insulin Diabetic nephropathy associated with type 2 diabetes mellitus Diabetic retinopathy associated with type 2 diabetes mellitus Diabetic polyneuropathy associated with type 2 diabetes mellitus Iron (Fe) deficiency anemia History of Graves' disease Lumbar degenerative disc disease Back pain Anxiety and depression GERD (gastroesophageal reflux disease) Asthma Hyperlipidemia Hypertension Diabetes mellitus Polyarthralgia Surgical History History of carpal tunnel surgery of right wrist H/O endoscopy History of cataract extraction History of lumpectomy of left breast History of carpal tunnel surgery of left wrist Hx of section Hx laparoscopic cholecystectomy Hx of esophagogastroduodenoscopy Hx of colonoscopy H/O gastric bypass Family History Father Diabetes Hypertension Mother Diabetes Hypertension Maternal Grandmother Colon cancer Paternal Aunt Cancer of ear Social History Household Members: Family Housing: House Alcohol intake: never Patient Tobacco Use Status: Former Tobacco user Tobacco use type: Cigarette Cigarette Packs Per Day: 1 Cigarettes Per Day: 20.0 Years Smoked: 20 e-Cigarette/Vaping Use: Never Used Second Hand Smoke Exposure: No service: No Current occupational status: disabled Current occupation: right hand dominant Cognitive needs: No Hearing needs: No Vision needs: Yes Female Reproductive History Menstrual Age of Menarche: 14 Physical Exam Vital Signs: Last Vital Signs Pulse 68 12/12/23 08:03 BP 140/80 H 12/12/23 08:03 BMI result Body Mass Index 31.3 Const Other: Absence of Cushingoid features. Absence of acromegalic features. Heart S1 S2, Reg R/R. No M/R G. Skin exam reveals absence of vitiligo or acanthosis nigricans. Visual exam of foot performed. No ulcerations or open lesions. No inter digit maceration or fissuring. No onychomycosis, mild callous left great toe. Sensation intact to monofilament exam. Vibratory sensation is normal with 128 Hz tuning fork. Office Procedures Glucose Monitoring Details Details: See HPI 86182 - Glucose monitoring, continuous-physician I&R Procedure code (CPT) selection complete Results Reviewed Results Reviewed: Laboratory Last Values Glucose (Clinic) 167 mg/dL (60-115) H 12/12/23 08:07 Assessment & Plan Assessment & Plan (1) Uncontrolled type 2 diabetes mellitus with hyperglycemia: Code(s): E11.65 - Type 2 diabetes mellitus with hyperglycemia Category: Medical Plan: Type 2 diabetic who has been difficult to achieve tight control on U 500 via insulin pump, SGLT-2 inhibitor and Mounjaro She has a follow up appointment with the pull up hand and will be converted from U500 insulin to U 200 insulin. I will see her back 1 week after the conversion she should be seen s ooner than that by the Kae [facility] CDE if sugars increase with the conversion we may need to add 1 basal shot of Tresiba to lower the amount of units of U 200 she is going through so that she will not need to change her set every day. She understands her current backup insulin plan is 35 units t.i.d. with meals of U500 insulin. Orders: Orders AMB Glucose Monitoring Today E11.65 - Type 2 diabetes mellitus with hyperglycemia Medications: New tirzepatide (Mounjaro) 7.5 mg (0.5 mL) subcut QWEEK 28 days 2 mL 11RF Discontinued tirzepatide (Mounjaro) Discontinued Reason: No Longer Medically Relevant 10 mg (0.5 mL) subcut QWEEK 2 mL 3RF Patient Instructions: The patient was counseled to always carry a source of sugar and on the rule of 15's: Take 3 glucose tablets and repeat again in 15 minutes if blood sugar is not in normal range. Continue to repeat every 15 minutes until blood sugar is normal. Wear closed toe shoes, never walk barefooted and inspect the feet daily. For any signs of infection or open wound patient you should notify your PCP or go to urgent care/ER. Coding Level of Care Code Est Pt Level 5 (52041) Diagnoses Uncontrolled type 2 diabetes mellitus with hyperglycemia E11.65 CPT Codes Details - CPT: 63517 - Glucose monitoring, continuous-physician I&R ([id number]) Time Spent (min) 50 Comment Reviewing labs/provider notes, pump reports, face to face, chart doc
[2023-12-12 08:03] VITALS: BP 140/80; PULSE 68; BMI 31.3
[2023-12-12 08:11] LABS: Glucose, Whole Blood 167 mg/dL (60-115)
== END 2023-12-12 08:27 | disposition home or self-care (01) ==
PROVIDERS: PCP Internal Medicine; Visit Provider Nurse Practitioner Adult Health
DX: E11.65 Type 2 diabetes mellitus with hyperglycemia (principal)
CPT/HCPCS: 95251; 99215

== ENCOUNTER → 2023-12-12 07:56 | Outpatient (BNVA) | payer OTHER, SELFPAY | PROVIDERS: PCP Internal Medicine; Visit Provider Nurse Practitioner Adult Health | DX: E11.65 Type 2 diabetes mellitus with hyperglycemia (principal); E11.21 Type 2 diabetes mellitus with diabetic nephropathy; E11.42 Type 2 diabetes mellitus with diabetic polyneuropathy; E11.319 Type 2 diabetes mellitus with unspecified diabetic retinopathy without macular edema; R80.9 Proteinuria, unspecified; E78.5 Hyperlipidemia, unspecified; Z79.4 Long term (current) use of insulin; Z96.41 Presence of insulin pump (external) (internal); Z83.3 Family history of diabetes mellitus; Z79.899 Other long term (current) drug therapy | CPT/HCPCS: 82947; 99212 ==

== ENCOUNTER 2023-12-19 09:27 | Outpatient (AMB) | payer OTHER, SELFPAY ==
--- NOTE | 2023-12-19 10:41 | AM.OFFVISNUR ---
Intake Visit Reasons: B12 Shot Allergies adhesive tape [ADHESIVE TAPE] Allergy (Intermediate, Verified 10/29/23 08:04) RASH pioglitazone [From ACTOS] Allergy (Intermediate, Verified 10/29/23 08:04) facial edema,rash latex Allergy (Mild, Verified 10/29/23 08:04) Rash Office Meds cyanocobalamin (vitamin B-12) 1,000 mcg/mL injection solution Performing Provider: Analilia Schumacher MD [facility] Administered by: Renetta Foss RN on 12/19/23 10:15 Dose Route Admin Location Dispensed Lot Number Expiration Date [facility] [employer] 1,000 mcg IM left deltoid 1 mL [id number] 02/22/25 [id number] M2G Assessment & Plan Assessment & Plan Orders: Orders AMB Vitamin B12 Injection Patient Supplied Today E53.8 - Deficiency of other specified B group vitamins Medications: New cyanocobalamin (vitamin B-12) 1,000 mcg IM ONCE 1 mL 0RF E53.8 - Deficiency of other specified B group vitamins
== END 2023-12-19 10:22 | disposition home or self-care (01) ==
PROVIDERS: PCP Internal Medicine; Visit Provider Internal Medicine
DX: E53.8 Deficiency of other specified B group vitamins (principal)
CPT/HCPCS: J3420

== ENCOUNTER → 2023-12-19 09:27 | Outpatient (BNVA) | payer OTHER, SELFPAY | PROVIDERS: PCP Internal Medicine; Visit Provider Internal Medicine | DX: E53.8 Deficiency of other specified B group vitamins (principal) | CPT/HCPCS: 96372 ==

== ENCOUNTER 2023-12-23 09:28 | Outpatient (AMB) | payer OTHER, SELFPAY ==
--- NOTE | 2023-12-23 09:35 | AM.OFFWIN_ITS ---
Intake Vital Signs 3 12/23/23 09:37 Height 5 ft 10 in Weight 218 lb BMI 31.3 BP 132/80 Blood Pressure Location Rt brachial Position Sitting Pulse 70 Pulse Source Pulse Oximeter Temp 97.8 F Temp Source Oral Pulse Oximetry (%) 98 Intake Visit Reasons: EP-red and warm spot in belly Intake Note: pt is here for red and warm to touch, spot on the belly/abd area Patient Tobacco Use Status: Former Tobacco user Allergies adhesive tape [ADHESIVE TAPE] Allergy (Intermediate, Verified 12/23/23 09:35) RASH pioglitazone [From ACTOS] Allergy (Intermediate, Verified 12/23/23 09:35) facial edema,rash latex Allergy (Mild, Verified 12/23/23 09:35) Rash Do you need a note to return to daycare/school/sports/work: No HPI HPI Comments 2 History of Present Illness0 Details 48 y/o female patient who presents to [facility] walk in clinic with c/o Small skin abscess on her lower abdomen just underneath belly button x 3 weeks. Reports that the area is tender and red. She is a Diabetic patient and wears a sensor patch. She noticed redness around the area where she took off the sensor patch. Denies systemic symptoms. [facility] Medical History (Updated 10/29/23 @ 08:48 by Rand Campos NP) Uncontrolled type 2 diabetes mellitus with hyperglycemia Physical exam Cellulitis of toe of right foot Hospital discharge follow-up Goiter Onychomycosis Vitamin D deficiency T2DM (type 2 diabetes mellitus) Left ankle pain B12 deficiency Left leg pain Acid reflux History of colonic polyps Chronic fatigue Carpal tunnel syndrome Daytime hypersomnia Autoimmune thyroiditis Fibromyalgia Morbid obesity Spondylosis, thoracic, 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 spine without myelopathy History of ulcer disease Sessile colonic polyp Obesity 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 Diabetic nephropathy associated with type 2 diabetes mellitus Diabetic retinopathy associated with type 2 diabetes mellitus Diabetic polyneuropathy associated with type 2 diabetes mellitus Iron (Fe) deficiency anemia History of Graves' disease Lumbar degenerative disc disease Back pain Anxiety and depression GERD (gastroesophageal reflux disease) Asthma Hyperlipidemia Hypertension Diabetes mellitus Polyarthralgia Surgical History History of carpal tunnel surgery of right wrist H/O endoscopy History of cataract extraction History of lumpectomy of left breast History of carpal tunnel surgery of left wrist Hx of section Hx laparoscopic cholecystectomy Hx of esophagogastroduodenoscopy Hx of colonoscopy H/O gastric bypass Family History Father Diabetes Hypertension Mother Diabetes Hypertension Maternal Grandmother Colon cancer Paternal Aunt Cancer of ear Social History Household Members: Family Housing: House Alcohol intake: never Patient Tobacco Use Status: Former Tobacco user Tobacco use type: Cigarette Cigarette Packs Per Day: 1 Cigarettes Per Day: 20.0 Years Smoked: 20 e-Cigarette/Vaping Use: Never Used Second Hand Smoke Exposure: No service: No Current occupational status: disabled Current occupation: right hand dominant Cognitive needs: No Hearing needs: No Vision needs: Yes Female Reproductive History Menstrual Age of Menarche: 14 Review of Systems Const All systems reviewed & are unremarkable except as noted in HPI and below Physical Exam Vital Signs: Last Vital Signs Temp 97.8 F 12/23/23 09:37 Pulse 70 12/23/23 09:37 BP 132/80 12/23/23 09:37 Pulse Ox 98 12/23/23 09:37 BMI result Body Mass Index 31.3 Const General: comfortable and no acute distress Nutritional Appearance: obese Orientation/consciousness: patient oriented x3 Skin General skin exam: dry skin and erythema Full body images: 2 1. Small abscess, red and hard to touch. Skin dry no drainage. Neuro General: patient oriented x3, gait normal and moves all extremities Assessment & Plan Assessment & Plan (1) Cellulitis of skin: Code(s): L03.90 - Cellulitis, unspecified Plan: Cellulitis, will order keflex today. Keep area clean and dry. RTC if not better. Medications: New 2 cephalexin 500 mg PO BID 7 days 14 caps 0RF L03.90 - Cellulitis, unspecified Coding Level of Care Code Est Pt Level 3 (75507) Diagnoses Cellulitis of skin L03.90 Time Spent (min) 15
[2023-12-23 09:37] VITALS: BP 132/80; PULSE 70; TEMP 36.6; O2SAT 98; BMI 31.3
== END 2023-12-23 10:05 | disposition home or self-care (01) ==
PROVIDERS: PCP Internal Medicine; Visit Provider Nurse Practitioner Family
DX: L03.90 Cellulitis, unspecified (principal)

== ENCOUNTER → 2023-12-23 09:28 | Outpatient (BNVA) | payer OTHER, SELFPAY | PROVIDERS: PCP Internal Medicine; Visit Provider Nurse Practitioner Family | DX: L03.90 Cellulitis, unspecified (principal) | CPT/HCPCS: 99212 ==

== ENCOUNTER → 2024-01-01 07:50 | Outpatient (BNVA) | payer OTHER, SELFPAY | PROVIDERS: PCP Internal Medicine; Visit Provider Registered Nurse Diabetes Educator | DX: E11.65 Type 2 diabetes mellitus with hyperglycemia (principal); E11.21 Type 2 diabetes mellitus with diabetic nephropathy; E11.42 Type 2 diabetes mellitus with diabetic polyneuropathy; E11.319 Type 2 diabetes mellitus with unspecified diabetic retinopathy without macular edema; L03.311 Cellulitis of abdominal wall; Z79.4 Long term (current) use of insulin; Z96.41 Presence of insulin pump (external) (internal); Z46.81 Encounter for fitting and adjustment of insulin pump | CPT/HCPCS: 99211; 99212 ==

== ENCOUNTER → 2024-01-01 09:08 | Outpatient (AMB) | payer OTHER, SELFPAY ==
--- NOTE | 2024-01-01 09:26 | A.OFFVIS_ITS ---
Intake Visit Reasons: DM Allergies adhesive tape [ADHESIVE TAPE] Allergy (Intermediate, Verified 12/23/23 09:35) RASH pioglitazone [From ACTOS] Allergy (Intermediate, Verified 12/23/23 09:35) facial edema,rash latex Allergy (Mild, Verified 12/23/23 09:35) Rash HPI Comments Details: The patient is a type 2 diabetic on an insulin pump. She was seen today by Kae PACE to convert from U500 to U 200. At the close of her visit she mentioned that she had an infection at a insulin pump insertion site and was finishing up a course of penicillin antibiotics. When she was seen 12/12/23 she had reported she put a site in and it felt irritated and she took it out after 5 minutes. I had seen her in clinic in the site did not look infected but she was advised if there were any changes to go to the emergency room. She was seen in urgent care placed on antibiotic in the top pull of the infected area did open up but she reports that this is extended in the area which is reddened has increased towards the bottom. She has no fever or chills. [facility] Medical History (Updated 01/01/24 @ 09:37 by Rand Campos NP) Cellulitis Uncontrolled type 2 diabetes mellitus with hyperglycemia Physical exam Cellulitis of toe of right foot Hospital discharge follow-up Goiter Onychomycosis Vitamin D deficiency T2DM (type 2 diabetes mellitus) Left ankle pain B12 deficiency Left leg pain Acid reflux History of colonic polyps Chronic fatigue Carpal tunnel syndrome Daytime hypersomnia Autoimmune thyroiditis Fibromyalgia Morbid obesity Spondylosis, thoracic, 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 spine without myelopathy History of ulcer disease Sessile colonic polyp Obesity Tracee's disease M[facility] (current) use of insulin Diabetic nephropathy associated with type 2 diabetes mellitus Diabetic retinopathy associated with type 2 diabetes mellitus Diabetic polyneuropathy associated with type 2 diabetes mellitus Iron (Fe) deficiency anemia History of Graves' disease Lumbar degenerative disc disease Back pain Anxiety and depression GERD (gastroesophageal reflux disease) Asthma Hyperlipidemia Hypertension Diabetes mellitus Polyarthralgia Surgical History History of carpal tunnel surgery of right wrist H/O endoscopy History of cataract extraction History of lumpectomy of left breast History of carpal tunnel surgery of left wrist Hx of section Hx laparoscopic cholecystectomy Hx of esophagogastroduodenoscopy Hx of colonoscopy H/O gastric bypass Family History Father Diabetes Hypertension Mother Diabetes Hypertension Maternal Grandmother Colon cancer Paternal Aunt Cancer of ear Social History Household Members: Family Housing: House Alcohol intake: never Patient Tobacco Use Status: Former Tobacco user Tobacco use type: Cigarette Cigarette Packs Per Day: 1 Cigarettes Per Day: 20.0 Years Smoked: 20 e-Cigarette/Vaping Use: Never Used Second Hand Smoke Exposure: No service: No Current occupational status: disabled Current occupation: right hand dominant Cognitive needs: No Hearing needs: No Vision needs: Yes Female Reproductive History Menstrual Age of Menarche: 14 Physical Exam Const Other: Well-appearing female in no acute distress. Current insulin pump site without any signs of infection. Previous site in lower mid abdomen is erythematous and slightly tender. The patient was also examined by Dr. Aguayo. Assessment & Plan Assessment & Plan (1) Cellulitis: Code(s): L03.90 - Cellulitis, unspecified Plan: Cellulitis at previous pump site location on lower abdomen. The patient was advised to discontinue her pump and to use U500 pen 60 units twice daily. She can resume the pump once infection completely resolves and I will see her back next week. Per Dr. Aguayo's recommendations she will go to the [facility] Emergency room for possible incision and drainage and change in antibi otic therapy. The patient will call our office if her blood sugars are running over 250 off the pump for additional titration of U500. I will contact the patient's pharmacy to make sure that they have the U500 quick pens. The patient has been a pump user for many years and has no prior history of cellulitis at an insertion site. I would recommend she change her soap to an antibacterial soap and do a good scrub of her hands prior to inserting pump or sensor. Insertion technique reviewed along with need for using to alcohol pads to prep the area. I also recommend that she use the antibacterial soap on her arms where she inserts her sensor and on the torso a prior to inserting a pump and to avoid this area when she is able to reinsert her pump Coding Level of Care Code Est Pt Level 3 (87149) Complex EM visit Add On G2211 Diagnoses Cellulitis L03.90 Time Spent (min) 20 Comment Reviewing case, examining patient and consultation with a physician
== END ==
LOC: HO.ENCR 09:08
PROVIDERS: PCP Internal Medicine; Visit Provider Nurse Practitioner Adult Health
DX: L03.90 Cellulitis, unspecified (principal)
CPT/HCPCS: 99213; G2211

== ENCOUNTER 2024-01-01 14:57 | Emergency (ER) | payer OTHER, SELFPAY ==
--- NOTE | ~2024-01-01 | CT_ITS ---
EXAMINATION: CT ABDOMEN AND PELVIS WITH CONTRAST CLINICAL INFORMATION: Abscess in the lower abdomen. COMPARISON: CT abdomen/pelvis 10/10/2022. TECHNIQUE: Multidetector volumetric images were obtained from the superior aspect of the liver through the pubic symphysis following administration 85 mL of Omnipaque 350 intravenous contrast. Sagittal and coronal reformatted images were obtained on the technologist's workstation. Oral contrast: No This CT examination was performed using dose optimization techniques as appropriate, variously including the following: *Automated exposure control *Adjustment of mA and/or kV according to patient size (this includes techniques or standardized protocols for targeted exams where dose is matched to indication/reason for exam; i.e. extremities or head) *Use of iterative reconstruction technique DLP: 775 mGy-cm FINDINGS: Limited examination secondary to motion. LUNG BASES: No focal consolidation or pleural effusion. LIVER, GALLBLADDER, AND BILIARY TREE: The liver is normal in size, shape, and attenuation. Unchanged too small to characterize hypodensity in the right hepatic lobe image 15 series 3. No biliary ductal dilatation is present. Cholecystectomy. PANCREAS: Unremarkable. SPLEEN: Unremarkable. ADRENAL GLANDS: Unremarkable. KIDNEYS AND URETERS: Increased right-sided pelviectasis with AP diameter of 3.2 cm, previously 2.3 cm transitioning at the level of the ureteropelvic junction. At approximately 1 cm from the ureteropelvic junction, there is mild right hydroureter up to the level of L4-L5, also increased compared to prior. No discrete obstructive calculus seen. Stable mild left-sided pelviectasis. Symmetric nephrograms. No perinephric fat stranding. BLADDER: Unremarkable. GASTROINTESTINAL TRACT: Postsurgical changes from Zoltan-en-Y gastric bypass. No disproportional dilatation to suspect a high-grade obstruction. Normal appendix. A few colonic diverticuli without significant pericolonic inflammatory changes. Moderate degree of colonic and rectal stool burden. ABDOMINAL WALL: New rim enhancing and centrally low attenuating collection in the superficial midline lower anterior abdominal wall measuring 2.7 x 1.5 x 2.9 cm with mild surrounding fat stranding and skin thickening most suggestive of an abscess. LYMPH NODES: No lymphadenopathy. VASCULAR: Scattered atherosclerotic disease. Normal caliber of the abdominal aorta. The main portal vein and SMV are patent. PELVIC VISCERA: Simple fluid attenuating cystic lesion in the left ovary measuring 3.6 cm. OSSEOUS STRUCTURES: No acute or aggressive appearing osseous findings. CT/CT abdomen pelvis w IV con IMPRESSION: 1. New rim enhancing and centrally low attenuating collection in the superficial midline lower anterior abdominal wall most suggestive of an abscess. 2. Increased right-sided pelviectasis and tandem right hydroureter up to the level of L4-L5. No discrete obstructive calculus seen. Recommend further characterization with outpatient CT urogram. 3. Simple fluid attenuating cystic lesion in the left ovary measuring 3.6 cm. This is almost certainly benign, although out of precaution a follow up ultrasound in one year is recommended. 4. Postsurgical changes from Zoltan-en-Y gastric bypass. No evidence of obstruction. 5. Moderate degree of colonic and rectal stool burden. Correlate clinically for constipation. Electronically signed by: Melba Luque MD 01/01/2024 11:21 PM JADA CHIN
[2024-01-01 15:20] VITALS: BP 155/85; PULSE 89; RESP 16; TEMP 36.5; O2SAT 100; BMI 31.7
[2024-01-01 17:42] LABS: MANUAL DIFF FLAG NO
[2024-01-01 17:51] LABS: Basophils Percent Auto 0.4 % (0-2); Eosinophils Absolute Auto 0.1 X10*3/uL (0.0-0.4); Eosinophils Percent Auto 1.3 % (0-4); Hematocrit 34.2 % (37.0-47.0); Hemoglobin 10.7 g/dl (12.0-16.0); Imm Gran Pct Auto 1.1 % (0.0-0.4); Lymphocytes Absolute Auto 2.5 X10*3/uL (1.2-4.9); Lymphocytes Percent Auto 27.3 % (20-40); Mean Corpuscular HGB Conc 31.3 g/dl (31.0-35.0); Mean Corpuscular Hemoglobin 23.3 pg (27.0-33.0); Mean Corpuscular Volume 74.3 fL (80.0-98.0); Mean Platelet Volume 9.3 fL (9.4-12.3); Monocytes Absolute Auto 0.7 X10*3/uL (0.1-1.2); Monocytes Percent Auto 7.3 % (2-11); Neutrophils Absolute Auto 5.7 x10*3/uL (2.0-8.3); Neutrophils Percent Auto 62.6 % (45-73); Platelet Count 354 X10*3/uL (160-400); White Blood Count 9.2 X10*3/uL (4.8-10.8)
[2024-01-01 17:58] LABS: Alanine Aminotransferase 25 U/L (0-31); Albumin Level 4.1 g/dL (3.5-5.0); Alkaline Phosphatase 123 U/L (39-117); Anion Gap 12 (12-20); Aspartate Amino Transferase 19 U/L (5-31); Bilirubin Total 0.3 mg/dL (0.0-1.0); Blood Urea Nitrogen 11 mg/dL (9-16); Calcium 9.3 mg/dL (8.4-10.2); Carbon Dioxide 25 mmol/L (22-29); Chloride 101 mmol/L (96-108); Creatinine Clr Calc Pharmacy 141.5; Estimated Glomerular Filt Rate > 60; Glucose Random 165 mg/dL (60-115); Sodium 134 mmol/L (135-145); Total Protein 7.7 g/dL (6.5-8.0)
--- NOTE | 2024-01-01 18:29 | ED.SKABFB ---
HPI - Skin/Abscess/Foreign Bdy General Chief complaint: Skin/Abscess/Foreign Body Stated complaint: Cellulitis? Sent by Dr Time Seen by Provider: 01/01/24 18:08 Source: patient, family and finisher machine (kinyarwanda) Mode of arrival: ambulatory Limitations: language barrier (kinyarwanda speaking) History of Present Illness ED Provider: NANCI LARA PA-C HPI narrative: 48 year old female with pmhx significant for uncontrolled T2DM, diabetic neuropathy, HTN, HDL, asthma, GERD, anxiety, depression, iron deficiency anemia, obesity, fibromyalgia presents to the ED today for evaluation of skin infection to abdomen x2 weeks. Patient reports placing a sensor patch to her lower abdomen below her umbilicus for her diabetes prior to onset of symptoms. Upon removal, began to noted redness/swelling/pain to the skin of her lower abdomen. She was evaluated for this at walk-in clinic on 12/23/23. She was diagnosed with cellulitis and was discharged home with keflex which she has been taking as prescribed. No missed doses. She reports the redness has been spreading and the area has been draining a yellow/ green fluid despite antibiotic therapy. Her PCP advised her to come to the ED for cat scan of her abdomen. Denies fever, chills. Additionally reports right sided neck pain/ stiffness x3 days. Denies any injury or trauma to the neck. Is unsure if she slept wrong. She has not trialed any OTC pain medications for this at home. Denies numbness/tingling/weakness of the LE, headache, dizziness, vision chance, n/v. Related Data Home Medications ?Medication ?Instructions ?Recorded ?Confirmed artifi.tears(hypromellose)(PF) 0.3 1 drp ophthalmic-Right Q4-6H PRN 12/10/19 10/01/23 % eye drops Dry Eyes diclofenac sodium 75 mg 75 mg PO BID 12/10/19 10/01/23 tablet,delayed release docusate sodium 100 mg capsule 100 mg PO DAILY 12/10/19 10/01/23 nortriptyline 10 mg capsule 10 mg PO BEDTIME 12/10/19 10/01/23 hydroxyzine HCl 25 mg tablet 1 - 2 tab PO QID 12/31/19 10/01/23 thiamine HCl (vitamin B1) 100 mg 1 tab PO DAILY 12/31/19 10/01/23 tablet vitamin A 3,000 mcg (10,000 unit) 1 cap PO DAILY 12/31/19 10/01/23 capsule citalopram 10 mg tablet 10 mg PO DAILY 08/28/22 10/01/23 buspirone 15 mg tablet 15 mg PO TID 01/02/23 10/01/23 Previous Rx's ?Medication ?Instructions ?Recorded cane #1 ea 07/31/20 syringe with needle, safety 3 mL #1 ea 01/25/21 25 gauge x 5/8 (BD Safety-Jone Detachable Needle) albuterol sulfate 90 mcg/actuation 1 inh inhalation QID PRN shortness 03/04/21 aerosol inhaler of breath or wheezing #8.5 grams nebulizers (AeroEclipse II #1 ea 03/04/21 Nebulizer) Shower Chair #1 ea 12/28/21 methylcellulose (laxative) 2 g PO DAILY PRN constipation #479 12/31/21 (Citrucel Sugar Free oral powder) grams fluticasone propionate 50 1 spray intranasal DAILY 30 days 02/25/22 mcg/actuation nasal #16 grams spray,suspension (Flonase Allergy Relief) albuterol sulfate 2.5 mg/3 mL 2.5 mg (3 mL) inhalation QID PRN 03/07/22 (0.083 %) solution for nebulization shortness of breath or wheezing 25 days #180 mL hydrocortisone 2.5 % topical cream 1 appl [place] BID PRN hemorrhoids #30 04/22/22 with perineal applicator grams (Proctozone-HC) tizanidine 4 mg tablet 4 mg PO Q8H PRN muscle spasticity 05/08/22 30 days #90 tabs ibuprofen 400 mg tablet 400 mg PO TID PRN fever or pain 05/31/22 #30 tabs ondansetron 4 mg disintegrating 4 mg PO Q6-8H PRN nausea and 05/31/22 tablet vomiting #14 tabs ascorbate calcium (vitamin C) 500 500 mg PO DAILY #60 tabs 06/14/22 mg tablet ferrous sulfate 325 mg (65 mg 325 mg PO DAILY #60 tabs 06/14/22 iron) tablet acetaminophen 500 mg tablet 500 mg PO Q6H PRN fever or pain 06/26/22 (Tylenol Extra Strength) #14 tabs canagliflozin 300 mg tablet 300 mg PO DAILY #30 tabs 11/06/22 (Invokana) cyclobenzaprine 10 mg tablet 10 mg PO TID PRN back pain #14 tabs 01/22/23 prochlorperazine maleate 10 mg 10 mg PO TID PRN nausea #10 tabs 01/22/23 tablet blood-glucose meter (FreeStyle #1 ea 01/25/23 Lite Meter kit) cetirizine 10 mg capsule (Zyrtec) 10 mg PO DAILY 90 days #90 caps 02/25/23 simethicone 125 mg chewable tablet 125 mg PO TID-QID PRN for 02/25/23 (Gas Relief Extra Strength) abdominal pain #90 tabs hydrocortisone 1 %-pramoxine 1 % 1 appl [place] DAILY #10 grams 02/26/23 rectal foam (Proctofoam HC) insulin syringe-needle U-100 1 mL #100 ea 03/16/23 31 gauge x 5/16 (Advocate Syringes) pantoprazole 40 mg tablet,delayed 40 mg PO DAILY 30 days #30 tabs 04/17/23 release blood sugar diagnostic (FreeStyle #100 ea 05/08/23 Lite Strips) insulin regular hum U-500 conc 500 See Rx Instructions subcut 05/27/23 unit/mL subcutaneous soln (Humulin .COMPLEX #80 mL R U-500 (Concentrated) Insulin) gabapentin 100 mg capsule 100 mg PO TID 30 days #90 caps 06/25/23 lidocaine 5 % topical patch 1 patch topical DAILY PRN pain #30 06/25/23 (Lidoderm) ea blood pressure kit-extra large #1 ea 06/29/23 valacyclovir 1 gram tablet 1,000 mg PO TID #21 tabs 07/23/23 (Valtrex) ergocalciferol (vitamin D2) 1,250 1,250 mcg PO QWEEK 90 days #13 caps 09/24/23 mcg (50,000 unit) capsule furosemide 20 mg tablet 20 mg PO BID 90 days #180 tabs 09/24/23 syringe with needle 1 mL 25 gauge #1 ea 10/01/23 x 5/8 ([employer] Luer Slip Syringe-Needle) cyanocobalamin (vitamin B-12) 1,000 mcg IM Q4W 4 weeks #1 mL 08/29/24 1,000 mcg/mL injection solution acetone (urine) test (Ketone Urine #50 ea 10/29/23 Test strips) glucagon 3 mg/actuation nasal 3 mg intranasal .prn PRN 10/29/23 spray (Baqsimi) Unresponsive hypoglycemia 30 days #2 ea glucose tablets 15 g PO .prn PRN low glucose 30 10/29/23 days #30 tabs rosuvastatin 10 mg tablet 10 mg PO DAILY #90 tabs 11/20/23 insulin lispro 200 unit/mL (3 mL) See Rx Instructions subcut 12/02/23 subcutaneous pen (Humalog KwikPen USEASDIRECTD 30 days #42 mL U-200 Insulin) pen needle, diabetic 32 gauge x #100 ea 12/02/23 (BD Shy 2nd Gen Pen Needle) tirzepatide 7.5 mg/0.5 mL 7.5 mg (0.5 mL) subcut QWEEK 28 12/12/23 subcutaneous pen injector days #2 mL (Mounjaro) oxycodone-acetaminophen 5 mg-325 1 tab PO Q8H PRN pain 30 days #90 12/19/23 mg tablet tabs cephalexin 500 mg capsule 500 mg PO BID 7 days #14 caps 12/23/23 lisinopril 10 mg tablet 10 mg PO DAILY #90 tabs 12/25/23 montelukast 10 mg tablet 10 mg PO DAILY 90 days #90 tabs 12/25/23 insulin regular hum U-500 conc 500 60 unit (0.12 mL) subcut BID 30 01/01/24 unit/mL(3 mL) subcut pen days #9 mL pen needle, diabetic 32 gauge x #100 ea 01/01/2407/09 (Comfort EZ Pen [place]) Allergies Allergy/AdvReac Type Severity Reaction Status Date / Time adhesive tape [ADHESIVE TAPE] Allergy Intermediate RASH Verified 01/01/24 15:24 pioglitazone [From ACTOS] Allergy Intermediate facial Verified 01/01/24 15:24 edema,rash latex Allergy Mild Rash Verified 01/01/24 15:24 Review of Systems Review of Systems: Constitutional: No fever, chills, fatigue, night sweats, weight changes ENT/Mouth: No ear pain, hearing loss, nasal congestion, sinus pain, rhinorrhea, sore throat Eyes: No eye pain, swelling, redness, vision changes, discharge Cardio: No chest pain, palpitations, DENTON, orthopnea, peripheral edema Pulm: No SOB, cough, sputum, wheezing, dyspnea, hemoptysis GI: No nausea, vomiting, hematemesis, abdominal pain, diarrhea, constipation, hematochezia, melena : No irregular bleeding, dysuria, frequency, urgency, hesitancy, hematuria, flank pain, urinary flow changes, urinary incontinence or retention MSK: No back pain, joint pain, myalgias, +neck pain Skin: No lesions, rashes, +infection to abdomen Neuro: No weakness, numbness, paresthesias, LOC, dizziness, headache Psych: No anxiety/panic, depression, SI/HI, AH/VH All other systems reviewed and are negative. [facility] Past Medical History Attestation statement: The following information was validated with the patient. Source: old records reviewed and nursing notes reviewed Medical History Cellulitis Uncontrolled type 2 diabetes mellitus with hyperglycemia Physical exam Cellulitis of toe of right foot Hospital discharge follow-up Goiter Onychomycosis Vitamin D deficiency T2DM (type 2 diabetes mellitus) Left ankle pain B12 deficiency Left leg pain Acid reflux History of colonic polyps Chronic fatigue Carpal tunnel syndrome Daytime hypersomnia Autoimmune thyroiditis Fibromyalgia Morbid obesity Spondylosis, thoracic, 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 spine without myelopathy History of ulcer disease Sessile colonic polyp Obesity Tracee's disease 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 (current) use of insulin Diabetic nephropathy associated with type 2 diabetes mellitus Diabetic retinopathy associated with type 2 diabetes mellitus Diabetic polyneuropathy associated with type 2 diabetes mellitus Iron (Fe) deficiency anemia History of Graves' disease Lumbar degenerative disc disease Back pain Anxiety and depression GERD (gastroesophageal reflux disease) Asthma Hyperlipidemia Hypertension Diabetes mellitus Polyarthralgia Surgical History History of carpal tunnel surgery of right wrist H/O endoscopy History of cataract extraction History of lumpectomy of left breast History of carpal tunnel surgery of left wrist Hx of section Hx laparoscopic cholecystectomy Hx of esophagogastroduodenoscopy Hx of colonoscopy H/O gastric bypass Family History Family History Father Diabetes Hypertension Mother Diabetes Hypertension Maternal Grandmother Colon cancer Paternal Aunt Cancer of ear Social History Social History Household Members: Family Housing: House Alcohol intake: never Patient Tobacco Use Status: Former Tobacco user Tobacco use type: Cigarette Cigarette Packs Per Day: 1 Cigarettes Per Day: 20.0 Years Smoked: 20 e-Cigarette/Vaping Use: Never Used Second Hand Smoke Exposure: No Advance Directives: No Advance Directives Information Provided: No service: No Current occupational status: disabled Current occupation: right hand dominant Cognitive needs: No Hearing needs: No Vision needs: Yes Physical Exam Vital Signs: Vital Signs: Last Vital Signs Temp 97.6 F 01/01/24 22:12 Pulse 83 01/01/24 22:12 Resp 16 01/01/24 22:12 BP 143/93 H 01/01/24 22:12 Pulse Ox 95 01/01/24 22:12 O2 Del Method Room Air 01/01/24 22:12 BMI result Body Mass Index 31.7 hypertensive, vitals otherwise wnl General: Well appearing, in no acute distress. Skin: Warm, dry, intact. No rashes or lesions. Head: Normocephalic, atraumatic. EENT: Hearing is intact b/l. Conjunctiva clear. PERRLA. Neck: No midline cervical spinous tenderness. There is palpable spasm noted to right cervical paraspinal musculature extending over right trapezius muscle. Limited ROM to C-spine secondary to spasm. No nuchal rigidity or meningeal signs. Cardiac: Chest wall symmetric. RRR Lungs: Normal respiratory effort without accessory muscle use. CTA bilaterally.? Abdomen: Obese abdomen, soft, there is a small area of erythema and induration to lower abdomen just below umbilicus, ttp. slight warmth. no palpable fluctuance. no active drainage. (see below) Ext: Upper and lower extremities atraumatic, without tenderness, deformity, swelling or erythema Neuro: AOx3. Normal speech. Strength 5/5 intact throughout. Ambulating with steady gait. Psych: Appropriate mood and affect. Responds appropriately to questions. Course Course Course Narrative: CBC without leukocytosis or left shift. Microcytic anemia. Stable when compared to priors. Chemistry without acute electrolyte abnormality requiring intervention. No ROGELIO. Random glucose 165. Beta quant undetectable. CT abdomen/pelvis pending. Valium given for neck pain. Toradol given for abdominal pain. will re-evaluate. Reevaluation(s) Reevaluation #1: Patient received in sign-out at change of shift pending CT imaging which confirms a cutaneous abscess. Please see procedure note for incision and drainage Time: 00:22 Medications Administered Discontinued Medications Generic Name Dose Route Start Last Admin Trade Name Terri PRN Reason Stop Dose Admin Diazepam 5 mg 01/01/24 18:29 01/01/24 19:38 Diazepam 5 Mg Tablet PO 01/01/24 18:30 5 mg ONCE ONE Administration Iohexol 100 ml 01/01/24 20:13 01/01/24 20:14 Iohexol 350 Mg/Ml 100 Ml Infus..Btl IV 01/01/24 20:14 85 ml ONCE ONE Administration Ketorolac Tromethamine 15 mg 01/01/24 18:29 01/01/24 19:38 Ketorolac Tromethamine 15 Mg/Ml Vial IVPUSH 01/01/24 18:30 15 mg ONCE ONE Administration Medical Decision Making Medical Decision Making [facility] Narrative: 48 year old female with pmhx significant for uncontrolled T2DM, diabetic neuropathy, HTN, HDL, asthma, GERD, anxiety, depression, iron deficiency anemia, obesity, fibromyalgia presents to the ED today for evaluation of skin infection to abdomen x2 weeks. Hypertensive, vitals otherwise wnl. afebrile. she is nontoxic appearing and in NAD. on exam, obese abdomen, soft, there is a small area of erythema and induration to lower abdomen just below umbilicus, ttp. slight warmth. no palpable fluctuance. no active drainage. (See photos above). No midline cervical spinous tenderness. There is palpable spasm noted to right cervical paraspinal musculature extending over right trapezius muscle. Limited ROM to C-spine secondary to spasm. No nuchal rigidity or meningeal signs. Differential diagnosis includes cervical strain vs spasm. Unlikely fracture, subluxation, herniation, meningitis. Differential diagnosis includes cellulitis, panniculitis, abscess. No concern for sepsis. Plan for basic labs, hcg, CT A/P, pain control and re-evaluation. Differential Diagnosis Differential Diagnoses: The differential diagnosis associated with the presentation includes as above. Admission/Observation not indicated. Lab Data [facility] Lab Attestation statement: I reviewed the patient's lab results. as above. 01/01/24 17:37 01/01/24 17:37 Labs: Lab Results 01/01/24 Range/Units 17:37 WBC 9.2 (4.8-10.8) X10*3/uL RBC 4.60 (4.20-5.50) X10*6/uL Hgb 10.7 L (12.0-16.0) g/dl Hct 34.2 L (37.0-47.0) % MCV 74.3 L (80.0-98.0) fL MCH 23.3 L (27.0-33.0) pg MCHC 31.3 (31.0-35.0) g/dl RDW 15.0 (11.0-16.0) % Plt Count 354 (160-400) X10*3/uL MPV 9.3 L (9.4-12.3) fL Immature Gran % (Auto) 1.1 H (0.0-0.4) % Neut % (Auto) 62.6 (45-73) % Lymph % (Auto) 27.3 (20-40) % Sampson % (Auto) 7.3 (2-11) % Eos % (Auto) 1.3 (0-4) % Baso % (Auto) 0.4 (0-2) % Lymph # (Auto) 2.5 (1.2-4.9) X10*3/uL Sampson # (Auto) 0.7 (0.1-1.2) X10*3/uL Eos # (Auto) 0.1 (0.0-0.4) X10*3/uL Baso # (Auto) 0.0 (0.0-0.2) X10*3/uL Abs Immat Gran (auto) 0.10 H (0.00-0.03) X10*3/uL Absolute Neuts (auto) 5.7 (2.0-8.3) x10*3/uL Absolute Nucleated RBC 0.000 (0.0-0.012) X10*3/uL Nucleated RBC % (auto) 0.0 (0.0-0.2) /100WBC Sodium 134 L (135-145) mmol/L Potassium 4.0 (3.3-5.1) mmol/L Chloride 101 (96-108) mmol/L Carbon Dioxide 25 (22-29) mmol/L Anion Gap 12 (12-20) BUN 11 (9-16) mg/dL Creatinine 0.61 (0.5-1.4) mg/dL Estim Creat Clear Calc 141.5 Estimated GFR > 60 Random Glucose 165 H (60-115) mg/dL Calcium 9.3 (8.4-10.2) mg/dL Total Bilirubin 0.3 (0.0-1.0) mg/dL AST 19 (5-31) U/L ALT 25 (0-31) U/L Alkaline Phosphatase 123 H (39-117) U/L Total Protein 7.7 (6.5-8.0) g/dL Albumin 4.1 (3.5-5.0) g/dL Beta HCG, Quant < 2 mIU/mL Independent Interpretation I performed an independent interpretation of an: CT Scan Interpretation: CT abd/pelvis Radiology Impression Discussion of test interpretation with radiology: I have reviewed the radiologist's reading. Radiologist Impression: CT/CT abdomen pelvis w IV con IMPRESSION: 1. New rim enhancing and centrally low attenuating collection in the superficial midline lower anterior abdominal wall most suggestive of an abscess. 2. Increased right-sided pelviectasis and tandem right hydroureter up to the level of L4-L5. No discrete obstructive calculus seen. Recommend further characterization with outpatient CT urogram. 3. Simple fluid attenuating cystic lesion in the left ovary measuring 3.6 cm. This is almost certainly benign, although out of precaution a follow up ultrasound in one year is recommended. 4. Postsurgical changes from Zoltan-en-Y gastric bypass. No evidence of obstruction. 5. Moderate degree of colonic and rectal stool burden. Correlate clinically for constipation. Electronically signed by: Melba Luque MD 01/01/2024 11:21 PM [facility] Independent Historian Clinical information obtained from an independent historian. History obtained from or confirmed by: Spouse External Record Review External record reviewed: Inpatient record, Office record, Outpatient record, Prior outpatient labs, Prior outpatient radiology, Primary care record and Outside ED record Prescription Management I considered prescription management with: Pain Medication and Antibiotic Chronic Conditions Patient?s care impacted by: Diabetes Social Determinants Patient?s care significantly limited by Social Determinants of Health including: Other Social Determinant of Health Procedures Abscess I/D Site: abdomen Local Anesthetic: lidocaine 1% Amount of anesthesia used (mL): 3 Technique: incised with blade and ultrasound guided Amount of fluid expressed (mL): 6 Sent for culture/gram staining?: No Irrigation: Yes Packing used?: none Critical Care Time Critical Care Time Critical Care Time: No Discharge Plan Discharge Clinical Impression: Cervical paraspinal muscle spasm, Abdominal wall abscess Patient Disposition: Home, Self-Care Instructions: Incision and Drainage (ED), Abscess (ED) Additional Instructions: You may continue your antibiotics as prescribed. You had an abscess that was drained Continue warm compresses to help facilitate drainage Follow-up with your primary doctor, return for new or worsening symptoms Prescriptions: No Action (DME) cane Device See Rx Instructions .ROUTE .MEDSUPPLY Qty: 1 0RF Rx Instructions: As directed (DME) BD Safety-Jone Detachable Needl 3 mL 25 gauge x 5/8 syringe See Rx Instructions .ROUTE .MEDSUPPLY Qty: 1 6RF Rx Instructions: Use 1 syringe once a month (DME) Shower Chair [facility] [place], [place] See Rx Instructions .Route Qty: 1 0RF Rx Instructions: As directed fluticasone propionate [Flonase Allergy Relief] 50 mcg/actuation spray,suspension 1 spray intranasal DAILY 30 Days Qty: 16 1RF Rx Instructions: administer into each nostril albuterol sulfate 2.5 mg /3 mL (0.083 %) solution for nebulization 2.5 mg inhalation QID PRN (Reason: shortness of breath or wheezing) 25 Days Qty: 180 0RF tizanidine 4 mg tablet 4 mg PO Q8H PRN (Reason: muscle spasticity) 30 Days Qty: 90 8RF ferrous sulfate 325 mg (65 mg iron) tablet 325 mg PO DAILY Qty: 60 0RF ascorbate calcium (vitamin C) 500 mg tablet 500 mg PO DAILY Qty: 60 0RF Invokana 300 mg tablet 300 mg PO DAILY Qty: 30 11RF (DME) blood-glucose meter [FreeStyle Lite Meter] Kit See Rx Instructions .ROUTE .MEDSUPPLY Qty: 1 0RF Rx Instructions: TEST 4 TIMES DAILY Zyrtec 10 mg capsule 10 mg PO DAILY 90 Days Qty: 90 3RF simethicone [Gas Relief Extra Strength] 125 mg tablet,chewable 125 mg PO TID-QID PRN (Reason: for abdominal pain) Qty: 90 2RF Proctofoam HC 1-1 % foam 1 appl [place] DAILY Qty: 10 3RF (DME) insulin syringe-needle U-100 [Advocate Syringes] 1 mL 31 gauge x 5/16 syringe See Rx Instructions .Route Qty: 100 2RF Rx Instructions: Use 1 needle once a month pantoprazole 40 mg tablet,delayed release (DR/EC) 40 mg PO DAILY 30 Days Qty: 30 11RF (DME) FreeStyle Lite Strips Strip See Rx Instructions .ROUTE .MEDSUPPLY Qty: 100 8RF Rx Instructions: TEST 4 TIMES DAILY Humulin R U-500 (Conc) Insulin 500 unit/mL solution See Rx Instructions subcut .COMPLEX Qty: 80 5RF Rx Instructions: Infuse up to 500 units per day via insulin pump subcutaneously; lidocaine [Lidoderm] 5 % adhesive patch,medicated 1 patch topical DAILY MDD remove after 12 hours PRN (Reason: pain) Qty: 30 0RF Rx Instructions: leave on most painful area for up to 12 hrs gabapentin 100 mg capsule 100 mg PO TID 30 Days Qty: 90 1RF (DME) blood pressure kit-extra large Kit See Rx Instructions .Route Qty: 1 0RF Rx Instructions: As directed furosemide 20 mg tablet 20 mg PO BID 90 Days Qty: 180 1RF ergocalciferol (vitamin D2) 1,250 mcg (50,000 unit) capsule 1,250 mcg PO QWEEK 90 Days Qty: 13 0RF cyanocobalamin (vitamin B-12) 1,000 mcg/mL solution 1,000 mcg IM Q4W 28 Days Qty: 1 6RF rosuvastatin 10 mg tablet 10 mg PO DAILY Qty: 90 1RF Humalog KwikPen Insulin 200 unit/mL (3 mL) insulin pen See Rx Instructions subcut USEASDIRECTD 30 Days Qty: 42 3RF Rx Instructions: up to 375 units per day via pump subcutaneously use as directed; (DME) pen needle, diabetic [BD Shy 2nd Gen Pen Needle] 32 gauge x 5/32 needle See Rx Instructions .ROUTE .MEDSUPPLY Qty: 100 6RF Rx Instructions: As directed qid prn pump failure oxycodone-acetaminophen 5-325 mg tablet 1 tab PO Q8H PRN (Reason: pain) 30 Days Qty: 90 0RF montelukast 10 mg tablet 10 mg PO DAILY 90 Days Qty: 90 3RF lisinopril 10 mg tablet 10 mg PO DAILY Qty: 90 4RF thiamine HCl (vitamin B1) 100 mg tablet 1 tab PO DAILY vitamin A 10,000 unit capsule 1 cap PO DAILY hydroxyzine HCl 25 mg tablet 1 - 2 tab PO QID albuterol sulfate 90 mcg/actuation HFA aerosol inhaler 1 inh inhalation QID PRN (Reason: shortness of breath or wheezing) Qty: 8.5 0RF (DME) AeroEclipse II Nebulizer [facility] [place], [place] See Rx Instructions .ROUTE .MEDSUPPLY Qty: 1 0RF Rx Instructions: As directed ibuprofen 400 mg tablet 400 mg PO TID PRN (Reason: fever or pain) Qty: 30 0RF ondansetron 4 mg tablet,disintegrating 4 mg PO Q6-8H PRN (Reason: nausea and vomiting) Qty: 14 0RF acetaminophen [Tylenol Extra Strength] 500 mg tablet 500 mg PO Q6H PRN (Reason: fever or pain) Qty: 14 0RF cyclobenzaprine 10 mg tablet 10 mg PO TID PRN (Reason: back pain) Qty: 14 0RF prochlorperazine maleate 10 mg tablet 10 mg PO TID PRN (Reason: nausea) Qty: 10 0RF valacyclovir [Valtrex] 1 gram tablet 1,000 mg PO TID Qty: 21 0RF (DME) [employer] Luer Slip Syring-Ndl 1 mL 25 gauge x 5/8 syringe See Rx Instructions .Route Qty: 1 6RF Rx Instructions: For vitamin B12 injection diclofenac sodium 75 mg tablet,delayed release (DR/EC) 75 mg PO BID artifi.tears(hypromellose)(PF) 0.3 % drops 1 drp ophthalmic-Right Q4-6H PRN (Reason: Dry Eyes) nortriptyline 10 mg capsule 10 mg PO BEDTIME docusate sodium 100 mg capsule 100 mg PO DAILY Citrucel Sugar Free Powder 2 g PO DAILY PRN (Reason: constipation) Qty: 479 2RF hydrocortisone [Proctozone-HC] 2.5 % cream with perineal applicator 1 appl [place] BID PRN (Reason: hemorrhoids) Qty: 30 3RF Rx Instructions: apply WI BID prn buspirone 15 mg tablet 15 mg PO TID citalopram 10 mg tablet 10 mg PO DAILY Baqsimi 3 mg/actuation spray,non-aerosol 3 mg intranasal .prn MDD 6 mg PRN (Reason: Unresponsive hypoglycemia) 30 Days Qty: 2 1RF Rx Instructions: administer x 1 May repeat in 15 minutes if needed (DME) Ketone Urine Test Strip See Rx Instructions .ROUTE .MEDSUPPLY Qty: 50 1RF Rx Instructions: As directed glucose over 300, illness, nausea, vomiting t.i.d. glucose tablets 5 g tablet 15 g PO .prn MDD 12 tablets PRN (Reason: low glucose) 30 Days Qty: 30 11RF Rx Instructions: 3 tablets to treat a low repeat in 15 min as 6 needed until glucose above 80 orally PRN PRN; Mounjaro 7.5 mg/0.5 mL pen injector 7.5 mg subcut QWEEK 28 Days Qty: 2 11RF cephalexin 500 mg capsule 500 mg PO BID 7 Days Qty: 14 0RF insulin regular hum U-500 conc 500 unit/mL (3 mL) insulin pen 60 unit subcut BID 30 Days Qty: 9 0RF (DME) pen needle, diabetic [Comfort EZ Pen [place]] 32 gauge x 5/16 needle See Rx Instructions .Route Qty: 100 4RF Rx Instructions: As directed injection twice a day Print Language: Ivorian
--- NOTE | 2024-01-01 19:03 | PC.NURSE ---
report received from Justine BRANTLEY, assume care of pt at this time
[2024-01-01] MEDS: Ketorolac Tromethamine 15 MG/ML VIAL IVPUSH (19:38)
[2024-01-01] MEDS: diazePAM 5 MG TABLET PO (19:38)
[2024-01-01 19:39] LABS: HCG Quantitative < 2 mIU/mL
[2024-01-01] MEDS: iohexoL 350 MG/ML 100 ML INFUS..BTL IV (20:14)
[2024-01-01 22:12] VITALS: BP 143/93; PULSE 83; RESP 16; TEMP 36.4; O2SAT 95
--- NOTE | 2024-01-01 23:09 | PC.NURSE ---
report to Jelly LONGORIA
[2024-01-02] VITALS: BP 144/72; PULSE 69; RESP 18; TEMP 36.6; O2SAT 100
[2024-01-02] MEDS: Lidocaine HCl 1 % MPF 2 ML VIAL 4 ML INFILTRATI (00:44)
--- NOTE | 2024-01-02 00:44 | PC.NURSE ---
pressure dressing applied to abscess area, provider aware bright blood drainage. Reviewed discharge instructions with pt. pt verbalized understanding, no sign of distress.
[2024-01-02 00:50] VITALS: BP 144/82; PULSE 69; RESP 18; TEMP 36.6; O2SAT 100
== END 2024-01-02 00:51 | disposition home or self-care (01) ==
PROVIDERS: Physician Assistant Medical; Emergency Provider Emergency Medicine; PCP Internal Medicine
DX: M62.838 Other muscle spasm (principal); R10.2 Pelvic and perineal pain; Z79.899 Other long term (current) drug therapy
CPT/HCPCS: 36415; 74177; 80053; 84702; 85025; 96374; 99284; J1885; J2003; Q9967

== ENCOUNTER 2024-01-05 08:34 | Outpatient (AMB) | payer OTHER, SELFPAY ==
[2024-01-05 08:41] VITALS: BP 144/82; PULSE 77; O2SAT 98; BMI 31.5
--- NOTE | 2024-01-05 08:41 | A.OFFVIS_ITS ---
Vital Signs 01/05/24 08:41 Height 5 ft 9 in Weight 213 lb BMI 31.5 BP 144/82 H Pulse 77 Pulse Source Pulse Oximeter Pulse Oximetry (%) 98 Oxygen Delivery Method Room Air Intake Visit Reasons: bilateral rhomboid muscle injection left side Intake Note: Pain today 8.5/10 Service Center Supervisor Required: Yes Service Center Supervisor Language: Pashto Accompanied by: Self / Same As Patient Allergies adhesive tape [ADHESIVE TAPE] Allergy (Intermediate, Verified 01/05/24 08:42) RASH pioglitazone [From ACTOS] Allergy (Intermediate, Verified 01/05/24 08:42) facial edema,rash latex Allergy (Mild, Verified 01/05/24 08:42) Rash HPI Comments Details: Anitha is very pleasant 48 years old female who presents in my office with complains on pain in the left shoulder. In the past she received therapeutic trigger point injections in bilateral trapezius muscles as well as bilateral rhomboid muscles. She reports good pain relief after those procedures. She reports 80% pain improvement after each injection. She also reports that the procedure she received for her lower back radiofrequency ablation of L3-L4 dorsal ramus L5 performed in the operating room is no longer working and she wants to repeat this procedure. In the past she received this procedure with 80% of pain relief for 1 year. We agreed that I will schedule this procedure, but not sooner than 1 month after today. I will schedule this in the operating room. 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 spine without myelopathy History of ulcer disease Sessile colonic polyp Obesity 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 Diabetic nephropathy associated with type 2 diabetes mellitus Diabetic retinopathy associated with type 2 diabetes mellitus Diabetic polyneuropathy associated with type 2 diabetes mellitus Iron (Fe) deficiency anemia History of Graves' disease Lumbar degenerative disc disease Back pain Anxiety and depression GERD (gastroesophageal reflux disease) Asthma Hyperlipidemia Hypertension Diabetes mellitus Polyarthralgia Surgical History History of carpal tunnel surgery of right wrist H/O endoscopy History of cataract extraction History of lumpectomy of left breast History of carpal tunnel surgery of left wrist Hx of section Hx laparoscopic cholecystectomy Hx of esophagogastroduodenoscopy Hx of colonoscopy H/O gastric bypass Family History Father Diabetes Hypertension Mother Diabetes Hypertension Maternal Grandmother Colon cancer Paternal Aunt Cancer of ear Social History Household Members: Family Housing: House Alcohol intake: never Patient Tobacco Use Status: Former Tobacco user Tobacco use type: Cigarette Cigarette Packs Per Day: 1 Cigarettes Per Day: 20.0 Years Smoked: 20 e-Cigarette/Vaping Use: Never Used Second Hand Smoke Exposure: No service: No Current occupational status: disabled Current occupation: right hand dominant Cognitive needs: No Hearing needs: No Vision needs: Yes Female Reproductive History Menstrual Age of Menarche: 14 Review of Systems Const All systems reviewed & are unremarkable except as noted in HPI and below ENT Reports Normal hearing present Neuro Reports Normal hearing present, Denies Abnormal speech present and Denies Sensory deficit (Neuro) Physical Exam Vital Signs: Last Vital Signs Pulse 77 01/05/24 08:41 BP 144/82 H 01/05/24 08:41 Pulse Ox 98 01/05/24 08:41 Oxygen Delivery Method Room Air 01/05/24 08:41 BMI result Body Mass Index 31.5 Const General: cooperative, healthy appearing and no acute distress Nutritional Appearance: overweight Orientation/consciousness: patient oriented x3 Limitations: language barrier Eyes Sclerae: sclerae normal Resp Effort & Inspection: normal respiratory effort, able to speak in complete sentences, normal respiratory pattern, no audible wheezes and no cough Cardio Jugular venous distension: no JVD GI Inspection: Yes normal to inspection Auscultation: normal bowel sounds Neuro General: patient oriented x3 Cranial nerves: Yes Normal hearing present Speech: No Abnormal speech present Sensory Exam: No Sensory deficit (Neuro) Psych Appearance: grossly normal and well kempt Attitude: cooperative Assessment & Plan Assessment & Plan (1) Spondylosis of lumbosacral spine without myelopathy: Code(s): M47.817 - Spondylosis without myelopathy or radiculopathy, lumbosacral region Category: Medical (2) Spondylosis, thoracic, without myelopathy: Code(s): M47.814 - Spondylosis without myelopathy or radiculopathy, thoracic region Category: Medical Plan: The patient was positioned sitting on the examination chair and posterior upper back in the projection of left trapezius muscles were prepped with ChloraPrep. Sterilely obtained bupivacaine 0.5% 5 cc mixed with Kenalog 40 mg was injected in fan-like fashion in the most painful areas for the patient into the projection of left trapezius muscles. The patient tolerated procedure well. Band-Aids were applied. The patient was observed for 15 minutes after the procedure and discharged home uneventfully Plan Radiofrequency ablation L3-L4 does ramus L5 will be scheduled for the patient again. She reported 80% 1 year of pain relief after initial radiofrequency ablation. Coding Level of Care Code Est Pt Level 3 (90061) Procedure Only Diagnoses Spondylosis of lumbosacral spine without myelopathy M47.817 Spondylosis, thoracic, without myelopathy M47.814
== END 2024-01-05 09:00 | disposition home or self-care (01) ==
PROVIDERS: PCP Internal Medicine; Visit Provider Anesthesiology
DX: M47.817 Spondylosis without myelopathy or radiculopathy, lumbosacral region (principal); M47.814 Spondylosis without myelopathy or radiculopathy, thoracic region
CPT/HCPCS: 20552; 99213

== ENCOUNTER → 2024-01-05 08:34 | Outpatient (BNVA) | payer OTHER, SELFPAY | PROVIDERS: PCP Internal Medicine; Visit Provider Anesthesiology | DX: M47.817 Spondylosis without myelopathy or radiculopathy, lumbosacral region (principal); M47.814 Spondylosis without myelopathy or radiculopathy, thoracic region | CPT/HCPCS: 20552; 99212 ==

== ENCOUNTER 2024-01-08 08:11 | Outpatient (AMB) | payer OTHER, SELFPAY ==
--- NOTE | 2024-01-07 07:36 | A.OFFVIS_ITS ---
Vital Signs 01/08/24 08:15 Height 5 ft 9 in Weight 207 lb 3.752 oz BMI 30.6 BP 150/82 H Blood Pressure Location Rt brachial Position Sitting Pulse 96 Pulse Source Pulse Oximeter Intake Visit Reasons: DM Intake Note: Patient present today to follow up on Type 2 Diabetes Mellitus. Last Diabetic Eye exam: 12/2023, next appt soon Last Podiatry Visit: 09/2023, next appt on 11/2023 Most Recent HgA1C: 10.4%, 01/08/2024 Random Glucose: 331 mg/dL, Today Restaurant Hourly Team Member Required: Yes Restaurant Hourly Team Member Language: Field Artillery Targeting Technician Services: Restaurant Hourly Team Member Present ([facility] via video call) Restaurant Hourly Team Member Name: [id number] Information Interpreted: non-clinical & clinical Accompanied by: Self / Same As Patient Allergies adhesive tape [ADHESIVE TAPE] Allergy (Intermediate, Verified 01/05/24 08:42) RASH pioglitazone [From ACTOS] Allergy (Intermediate, Verified 01/05/24 08:42) facial edema,rash latex Allergy (Mild, Verified 01/05/24 08:42) Rash HPI Comments Details: Restaurant Hourly Team Member service by Vargas braswell was used for this visit 48 YO F with PMHx T2DM who is seen in F/U for the same. She has a longstanding history of poorly controlled diabetes. Hemoglobin A1c 01/07/2024 %, 10/01/2023 9.9%. She came in 1 week ago to have her insulin pump settings converted from Humulin U500 to U 200. At the time of her visit with the [facility] she advised us that she had an infection in her abdomen at a previous pump site. She was counseled to immediately stop the pump and go to the emergency room for incision and drainage, CT scan confirmed abcess and an I & D was done, CT did show several incidental findings of hydroureter and ovarian cyst for which the PCP was alerted. She took antibiotics for one week and is now off. She is taking U500 60 units twice daily. She reports no prior h/o infection at sensor site or pump site but occasionally has skin irritation, She has a history of prior bariatric surgery in June of 2015. Current regimen Humulin U500 60 units twice daily Humulin U-500 in a tandem insulin pump. on hold Canagliflozin 300 mg PO daily Mounjaro 7.5mg once per week Dexcom shows readings in the 300 range Has a positive Family history of T2DM. Has eyes checked yearly, last eye exam 11/16 has retinopathy. Scheduled for 01/17 Has neuropathy. Complaints of numbness and tingling, she has been unable to see the brooch and bracelet maker as she has not been able to make an appointment as there is no bilingual staff in the office. She will ask her son to make this appointment for her and to accompany her to the appointment. Has nephropathy, on Lisinopril 5 mg PO daily. microalbumin 09/2023 71 01/01/24 eGFR>60 Has HLD, on rosuvastatin 10 mg PO daily. ldl 72 10/17 Denies CAD. Diet: Does follow a low carb diet. Has met with a registered dietitian numerous times. She has been entering carbohydrates an hour before the meal. Weight: Stable. Has been going to diabetes education. 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's disease 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 Diabetic nephropathy associated with type 2 diabetes mellitus Diabetic retinopathy associated with type 2 diabetes mellitus Diabetic polyneuropathy associated with type 2 diabetes mellitus Iron (Fe) deficiency anemia History of Graves' disease Lumbar degenerative disc disease Back pain Anxiety and depression GERD (gastroesophageal reflux disease) Asthma Hyperlipidemia Hypertension Diabetes mellitus Polyarthralgia Surgical History History of carpal tunnel surgery of right wrist H/O endoscopy History of cataract extraction History of lumpectomy of left breast History of carpal tunnel surgery of left wrist Hx of section Hx laparoscopic cholecystectomy Hx of esophagogastroduodenoscopy Hx of colonoscopy H/O gastric bypass Family History Father Diabetes Hypertension Mother Diabetes Hypertension Maternal Grandmother Colon cancer Paternal Aunt Cancer of ear Social History Household Members: Family Housing: House Alcohol intake: never Patient Tobacco Use Status: Former Tobacco user Tobacco use type: Cigarette Cigarette Packs Per Day: 1 Cigarettes Per Day: 20.0 Years Smoked: 20 e-Cigarette/Vaping Use: Never Used Second Hand Smoke Exposure: No service: No Current occupational status: disabled Current occupation: right hand dominant Cognitive needs: No Hearing needs: No Vision needs: Yes Female Reproductive History Menstrual Age of Menarche: 14 Physical Exam Vital Signs: Last Vital Signs Pulse 96 01/08/24 08:15 BP 150/82 H 01/08/24 08:15 BMI result Body Mass Index 30.6 Const Other: Absence of Cushingoid features. Absence of acromegalic features. Neck exam reveals nl size thyroid about 15 gms. No thyroid nodules palpable. Heart S1 S2, Reg R/R. No M/R G. Skin exam reveals absence of vitiligo or acanthosis nigricans. Abdomen:area of induration shows some improvement, no purulence expressed . Results AMB Hemoglobin A1c AMB Hemoglobin A1c 10.4 % Last Edit by LASHONDA Jenkins on 01/08/24 08:4 3 Results Reviewed Results Reviewed: Laboratory Last Values Glucose (Clinic) 331 mg/dL (60-115) H 01/08/24 08:19 Hgb A1c (Clinic) 10.4 % (4.0-6.0) H 01/08/24 08:27 Assessment & Plan Assessment & Plan (1) T2DM (type 2 diabetes mellitus): Code(s): E11.9 - Type 2 diabetes mellitus without complications Category: Medical Qualifiers: Diabetes mellitus complication status: with hyperglycemia Diabetes mellitus long lines operator insulin use: with long lines operator use Qualified Code(s): E11.65 - Type 2 diabetes mellitus with hyperglycemia; Z79.4 - machine ii trimmer (current) use of insulin Plan: 48-year-old type 2 diabetic with retinopathy, neuropathy and nephropathy with a preserved renal function with longstanding history of poorly controlled diabetes with an A1c in the office today of 10.4% She is currently off her pump due to an abdominal abscess at a previous pump site. Her pump has been set up for a conversion from U500 to U 200 insulin as adjusting the U500 on a pump has been difficult. Due to the high volume of insulin she may after converting back to the pump need a long standing flattened basal insulin in addition to the pump such as Tresiba. For now she will increase U500 to 75 units twice daily and continue canagliflozin and Mounjaro. If her glucose remains elevated she will increase U500 to 80 units and can call [facility] early next week for guidance if this has not increased. She will follow up with [facility] [place] [address] Aguayo in 4 weeks. Would not recommend going back on insulin pump until she sees Dr. Aguayo. The patient had an opportunity to ask questions regarding treatment plan. The patient expressed understanding and agreement with the above treatment plan. The patient is aware they should contact our office by phone for worsening glucose readings or for any low blood sugars which may warrant a change in diabetes medication. Compliance is encouraged with medications and any followup testing/consults which may have been ordered. Orders: Orders AMB Hemoglobin A1c Today E11.65 - Type 2 diabetes mellitus with hyperglycemia Medications: New [skin tac] apply to skin at pump site and sensor site after cleansing with alcohol.Insert pump cannula/sensor after skin tac has allowed to dry. Use on pump every three days, every 10 at sensor site. 30 ea 2RF Refilled cephalexin 500 mg PO BID 7 days 14 caps 0RF L03.90 - Cellulitis, unspecified Patient Instructions: The patient was counseled to contact our office if her sugars were not in better control and to keep a follow up appointment with [facility] in 1 week. If she develops drainage or any additional redness of abscess in the abdominal wall go to ER. Coding Level of Care Code Est Pt Level 3 (17379) Complex EM visit Add On G2211 Diagnoses Type 2 diabetes mellitus with hyperglycemia, with long-term current use of insulin E11.65; Z79.4 Diabetes mellitus complication status: with hyperglycemia Diabetes mellitus alf insulin use: with long lines operator use Time Spent (min) 30 Comment Time spent reviewing labs/provider notes, face to face, chart doc
[2024-01-08 08:15] VITALS: BP 150/82; PULSE 96; BMI 30.6
[2024-01-08 08:26] LABS: Glucose, Whole Blood 331 mg/dL (60-115)
== END 2024-01-08 08:46 | disposition home or self-care (01) ==
PROVIDERS: PCP Internal Medicine; Visit Provider Nurse Practitioner Adult Health
DX: E11.65 Type 2 diabetes mellitus with hyperglycemia (principal); Z79.4 Long term (current) use of insulin
CPT/HCPCS: 99213; G2211

== ENCOUNTER → 2024-01-08 08:11 | Outpatient (BNVA) | payer OTHER, SELFPAY | PROVIDERS: PCP Internal Medicine; Visit Provider Nurse Practitioner Adult Health | DX: E11.65 Type 2 diabetes mellitus with hyperglycemia (principal); Z83.3 Family history of diabetes mellitus; Z96.41 Presence of insulin pump (external) (internal); Z79.4 Long term (current) use of insulin; Z79.84 Long term (current) use of oral hypoglycemic drugs | CPT/HCPCS: 82947; 83036; 99212 ==

== ENCOUNTER 2024-01-09 07:39 | Outpatient (REF) | payer OTHER, SELFPAY ==
[2024-01-09 08:09] LABS: MANUAL DIFF FLAG NO
[2024-01-09 08:47] LABS: Basophils Percent Auto 0.4 % (0-2); Eosinophils Percent Auto 0.4 % (0-4); Hemoglobin 11.6 g/dl (12.0-16.0); Imm Gran Abs Auto 0.02 X10*3/uL (0.00-0.03); Imm Gran Pct Auto 0.3 % (0.0-0.4); Lymphocytes Absolute Auto 1.6 X10*3/uL (1.2-4.9); Lymphocytes Percent Auto 20.6 % (20-40); Mean Corpuscular HGB Conc 32.2 g/dl (31.0-35.0); Mean Corpuscular Volume 74.4 fL (80.0-98.0); Mean Platelet Volume 9.9 fL (9.4-12.3); Monocytes Absolute Auto 0.6 X10*3/uL (0.1-1.2); Monocytes Percent Auto 7.3 % (2-11); Neutrophils Absolute Auto 5.4 x10*3/uL (2.0-8.3); Platelet Count 346 X10*3/uL (160-400); Red Blood Count 4.84 X10*6/uL (4.20-5.50); Red Cell Distribution Width 15.1 % (11.0-16.0); White Blood Count 7.6 X10*3/uL (4.8-10.8)
[2024-01-09 09:24] LABS: Alanine Aminotransferase 23 U/L (0-31); Albumin Level 4.4 g/dL (3.5-5.0); Alkaline Phosphatase 138 U/L (39-117); Anion Gap 12 (12-20); Aspartate Amino Transferase 18 U/L (5-31); Bilirubin Total 0.7 mg/dL (0.0-1.0); Blood Urea Nitrogen 13 mg/dL (9-16); Carbon Dioxide 28 mmol/L (22-29); Chloride 94 mmol/L (96-108); Cholesterol 182 mg/dL (<200); Estimated Glomerular Filt Rate > 60; Glucose Fasting 337 mg/dL (60-99); HDL Cholesterol 67 mg/dL (>40); Iron 58 mcg/dL (30-160); LDL Cholesterol Calculated 94 mg/dL (<100); Percent Iron Saturation 13 % (15-50); Potassium 4.4 mmol/L (3.3-5.1); Sodium 130 mmol/L (135-145); Total Iron Binding Capacity 448 mcg/dL (228-428); Triglycerides 106 mg/dL (<150); Unsaturated Iron Binding 390 ug/dL
[2024-01-09 09:41] LABS: Vitamin D 25-OH Total 15.1 ng/mL (>30)
[2024-01-09 09:46] LABS: Creatinine Urine 75.63 mg/dL; Microalbum/Creatinine Ratio Ur 145.4 ug/mg cr (<30)
[2024-01-09 09:52] LABS: Folate 15.1 ng/mL (> or = 4.0); Vitamin B12 283 pg/mL (200-900)
== END 2024-01-09 07:40 | disposition home or self-care (01) ==
LOC: HO.LAB 07:39
PROVIDERS: PCP Internal Medicine; Visit Provider Internal Medicine
DX: Z86.0100 Personal history of colon polyps, unspecified (principal); D64.9 Anemia, unspecified; E53.8 Deficiency of other specified B group vitamins; E55.9 Vitamin D deficiency, unspecified; E78.5 Hyperlipidemia, unspecified; E11.9 Type 2 diabetes mellitus without complications; I10 Essential (primary) hypertension
CPT/HCPCS: 36415; 80053; 80061; 82043; 82306; 82570; 82607; 82746; 83540; 85025; 99212

== ENCOUNTER 2024-01-09 11:22 | Outpatient (AMB) | payer OTHER, SELFPAY ==
--- NOTE | 2024-01-09 11:27 | MHC.OFFVIS ---
Vital Signs 01/09/24 11:28 Weight 458 lb 8.984 oz BP 144/70 H Blood Pressure Location Lt brachial Position Sitting Pulse 94 Intake Visit Reasons: pre colonoscopy /3 yrs recall Emma patient Intake Note: Yasmin presents in the office as a 3 year colonoscopy recall. CC: Lots of heartburn, constipation and sometimes diarrhea she also has some pains in her stomach. Gas Combustion Engineer Required: Yes Gas Combustion Engineer Name: [id number] Wilda Allergies adhesive tape [ADHESIVE TAPE] Allergy (Intermediate, Verified 01/09/24 11:34) RASH pioglitazone [From ACTOS] Allergy (Intermediate, Verified 01/09/24 11:34) facial edema,rash latex Allergy (Mild, Verified 01/09/24 11:34) Rash HPI Comments Details: 48 y.o F with PMH of rygb 2016, T2DM, Tracee's, iron deficiency anemia, VIt D deficiency, who is here for follow up. Seen with appraisal analyst. Pt had colo 2018 that showed 3 cm SSL in ascending colon that was removed piecemeal. Follow up colo 2020 without any residual polyps or any other polyps. 3 year recall recommended by endoscopist at that time. Pt herself without any abd pain, N,V, diarrhea. No blood in stool. Mother also has hx of advanced polyps. [facility] Medical History Cellulitis Uncontrolled type 2 diabetes mellitus with hyperglycemia Physical exam Cellulitis of toe of right foot Hospital discharge follow-up Goiter Onychomycosis Vitamin D deficiency T2DM (type 2 diabetes mellitus) Left ankle pain B12 deficiency Left leg pain Acid reflux History of colonic polyps Chronic fatigue Carpal tunnel syndrome Daytime hypersomnia Autoimmune thyroiditis Fibromyalgia Morbid obesity Spondylosis, thoracic, 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 spine without myelopathy History of ulcer disease Sessile colonic polyp Obesity 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 Diabetic nephropathy associated with type 2 diabetes mellitus Diabetic retinopathy associated with type 2 diabetes mellitus Diabetic polyneuropathy associated with type 2 diabetes mellitus Iron (Fe) deficiency anemia History of Graves' disease Lumbar degenerative disc disease Back pain Anxiety and depression GERD (gastroesophageal reflux disease) Asthma Hyperlipidemia Hypertension Diabetes mellitus Polyarthralgia Surgical History History of carpal tunnel surgery of right wrist H/O endoscopy History of cataract extraction History of lumpectomy of left breast History of carpal tunnel surgery of left wrist Hx of section Hx laparoscopic cholecystectomy Hx of esophagogastroduodenoscopy Hx of colonoscopy H/O gastric bypass Family History Father Diabetes Hypertension Mother Diabetes Hypertension Maternal Grandmother Colon cancer Paternal Aunt Cancer of ear Social History Household Members: Family Housing: House Alcohol intake: never Patient Tobacco Use Status: Former Tobacco user Tobacco use type: Cigarette Cigarette Packs Per Day: 1 Cigarettes Per Day: 20.0 Years Smoked: 20 e-Cigarette/Vaping Use: Never Used Second Hand Smoke Exposure: No service: No Current occupational status: disabled Current occupation: right hand dominant Cognitive needs: No Hearing needs: No Vision needs: Yes Female Reproductive History Menstrual Age of Menarche: 14 Review of Systems Const All systems reviewed & are unremarkable except as noted in HPI and below Physical Exam Vital Signs: Last Vital Signs Pulse 94 01/09/24 11:28 BP 144/70 H 01/09/24 11:28 No apparent distress Nonicteric Abdomen soft, nondistended Alert and oriented x3, normal gait Assessment & Plan Assessment & Plan (1) History of colonic polyps: Code(s): Z86.010 - Personal history of colon polyps Category: Medical (2) Iron (Fe) deficiency anemia: Code(s): D50.9 - Iron deficiency anemia, unspecified Category: Medical (3) Gastric bypass status for obesity: Code(s): Z98.84 - Bariatric surgery status Category: Medical Plan Due for follow up colonoscopy for 3 cm SSL in 2019 that was removed piecemeal. No polyps noted on colo 2020. Due to hx of RYGB, will Rx low-volume prep. Pt also with ROSITA. Likely from malabsorption post bariatric surg. Will also book for an EGD to r/o marginal ulcer. If EGD/colo neg, will replete with IV iron. Plan: - EGD/colo to be booked - SUprep prescribed. Instrucitons reviewed with the help fo appraisal analyst and handout given - Pt also aware to [employer] x 7 days before procedure Follow up after procedures Medications: New sodium,potassium,mag sulfates 17.5-3.13-1.6 gram (Suprep Bowel Prep Kit) DILUTE; drink full amount early evening before AND next morning at least 2 hr before procedure; follow w 960 mL water PO 354 mL 0RF Coding Level of Care Code Est Pt Level 4 (69932) Diagnoses History of colonic polyps Z86.010 Iron (Fe) deficiency anemia D50.9 Gastric bypass status for obesity Z98.84
[2024-01-09 11:28] VITALS: BP 144/70; PULSE 94
== END 2024-01-09 13:06 | disposition home or self-care (01) ==
PROVIDERS: PCP Internal Medicine; Visit Provider Internal Medicine
DX: Z86.0100 Personal history of colon polyps, unspecified (principal); D50.9 Iron deficiency anemia, unspecified; Z98.84 Bariatric surgery status
CPT/HCPCS: 99214

== ENCOUNTER 2024-01-16 08:53 | Outpatient (AMB) | payer OTHER, SELFPAY ==
--- NOTE | 2024-01-16 09:00 | AM.OFFVISNUR ---
Intake Visit Reasons: b12 Allergies adhesive tape [ADHESIVE TAPE] Allergy (Intermediate, Verified 01/09/24 11:34) RASH pioglitazone [From ACTOS] Allergy (Intermediate, Verified 01/09/24 11:34) facial edema,rash latex Allergy (Mild, Verified 01/09/24 11:34) Rash Office Meds cyanocobalamin (vitamin B-12) 1,000 mcg/mL injection solution Performing Provider: Analilia Schumacher MD Performing [facility] Administered by: Renetta Foss RN on 01/16/24 09:01 Dose Route Admin Location Dispensed Lot Number Expiration Date [facility] [employer] 1,000 mcg IM left deltoid 1 mL [id number] 02/22/25 00647-828-07 [employer] Loc[employer] Assessment & Plan Assessment & Plan Orders: Orders AMB Vitamin B12 Injection Patient Supplied Today E53.8 - Deficiency of other specified B group vitamins Medications: Refilled cyanocobalamin (vitamin B-12) 1,000 mcg IM Q4W 4 weeks 1 mL 6RF D51.0 - Vitamin B12 deficiency anemia due to intrinsic factor deficiency, E55.9 - Vitamin D deficiency, unspecified
== END 2024-01-16 09:12 | disposition home or self-care (01) ==
PROVIDERS: PCP Internal Medicine; Visit Provider Internal Medicine
DX: E53.8 Deficiency of other specified B group vitamins (principal)

== ENCOUNTER → 2024-01-16 08:53 | Outpatient (BNVA) | payer OTHER, SELFPAY | PROVIDERS: PCP Internal Medicine; Visit Provider Internal Medicine | DX: D51.0 Vitamin B12 deficiency anemia due to intrinsic factor deficiency (principal); E55.9 Vitamin D deficiency, unspecified | CPT/HCPCS: 96372; J3420 ==

== ENCOUNTER 2024-01-20 14:08 | Outpatient (AMB) | payer OTHER, SELFPAY ==
--- NOTE | 2024-01-20 14:28 | MHC.AMDMED ---
Intake Intake Visit Reasons: DM [id number] [employer] Consultant Required: Yes [employer] Consultant Language: Seat Cover Maker Name: Analilia [facility] Accompanied by: Self / Same As Patient Allergies adhesive tape [ADHESIVE TAPE] Allergy (Intermediate, Verified 01/09/24 11:34) RASH pioglitazone [From ACTOS] Allergy (Intermediate, Verified 01/09/24 11:34) facial edema,rash latex Allergy (Mild, Verified 01/09/24 11:34) Rash HPI Comprehensive Diabetes Asmnt Most Recent Diabetes Results: Hemoglobin A1c 8.3 % 05/14/18 Microalb/Creat Ratio 145.4 ug/mg cr (<30) H 01/09/24 Cholesterol 182 mg/dL (<200) 01/09/24 HDL Cholesterol 67 mg/dL (>40) 01/09/24 Triglycerides 106 mg/dL (<150) 01/09/24 Creatinine 0.80 mg/dL (0.5-1.4) 01/09/24 Blood Urea Nitrogen 13 mg/dL (9-16) 01/09/24 Sodium 130 mmol/L (135-145) L 01/09/24 Potassium 4.4 mmol/L (3.3-5.1) 01/09/24 Chloride 94 mmol/L (96-108) L 01/09/24 Carbon Dioxide 28 mmol/L (22-29) 01/09/24 Calcium 9.0 mg/dL (8.4-10.2) 01/09/24 AST 18 U/L (5-31) 01/09/24 ALT 23 U/L (0-31) 01/09/24 Total Protein 8.0 g/dL (6.5-8.0) 01/09/24 Albumin 4.4 g/dL (3.5-5.0) 01/09/24 [facility] Medical History Cellulitis Uncontrolled type 2 diabetes mellitus with hyperglycemia Physical exam Cellulitis of toe of right foot Hospital discharge follow-up Goiter Onychomycosis Vitamin D deficiency T2DM (type 2 diabetes mellitus) Left ankle pain B12 deficiency Left leg pain Acid reflux History of colonic polyps Chronic fatigue Carpal tunnel syndrome Daytime hypersomnia Autoimmune thyroiditis Fibromyalgia Morbid obesity Spondylosis, thoracic, 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 spine without myelopathy History of ulcer disease Sessile colonic polyp Obesity Tracee's disease shelter (current) use of insulin Diabetic nephropathy associated with type 2 diabetes mellitus Diabetic retinopathy associated with type 2 diabetes mellitus Diabetic polyneuropathy associated with type 2 diabetes mellitus Iron (Fe) deficiency anemia History of Graves' disease Lumbar degenerative disc disease Back pain Anxiety and depression GERD (gastroesophageal reflux disease) Asthma Hyperlipidemia Hypertension Diabetes mellitus Polyarthralgia Surgical History History of carpal tunnel surgery of right wrist H/O endoscopy History of cataract extraction History of lumpectomy of left breast History of carpal tunnel surgery of left wrist Hx of section Hx laparoscopic cholecystectomy Hx of esophagogastroduodenoscopy Hx of colonoscopy H/O gastric bypass Family History Father Diabetes Hypertension Mother Diabetes Hypertension Maternal Grandmother Colon cancer Paternal Aunt Cancer of ear Social History Household Members: Family Housing: House Alcohol intake: never Patient Tobacco Use Status: Former Tobacco user Tobacco use type: Cigarette Cigarette Packs Per Day: 1 Cigarettes Per Day: 20.0 Years Smoked: 20 e-Cigarette/Vaping Use: Never Used Second Hand Smoke Exposure: No service: No Current occupational status: disabled Current occupation: right hand dominant Cognitive needs: No Hearing needs: No Vision needs: Yes Female Reproductive History Menstrual Age of Menarche: 14 Assessment & Plan Assessment & Plan (1) Diabetic retinopathy associated with type 2 diabetes mellitus: Code(s): E11.319 - Type 2 diabetes mellitus with unspecified diabetic retinopathy without macular edema Plan: Personal Continuous Glucose Monitor: Patients CGM information reviewed, Pt uses Dexcom G6, is off her T-Slim insulin Sensor data: Hypoglycemia: ? 0% Hyperglycemia:? 100% Time in Range:? 0% Average glucose for the last 2 weeks?333 mg/dL Patient continues to be treated with antibiotics for cellulitis, and infection at infusion site She is currently taking U 500 75 units b.i.d., instructed patient to increase U 500-80 units b.i.d., after 3 days if fasting blood sugar remains above 200 mg/dL increase to 85 units b.i.d. Patient has follow-up appointment with Dr. Aguayo on 02/09/2024, at that visit if Dr. Aguayo gives the okay patient can restart insulin pump. Patient will follow-up with life skills educator 2 weeks after visit with Dr. Aguayo If patient's glucose levels stabilize and patient is experiencing hypoglycemia, she is instructed to reduce U 500 back to 75 units b.i.d. Reviewed with patient how to treat hypoglycemia with rule of 15s [place] handout given Reviewed how to interpret trend arrows Reminded patient that to check finger sticks if symptoms do not match sensor reading. Discussed lag time between finger stick and sensor data.? Patient able to insert sensor independently at home without issue.? Portions of this note were created using voice recognition software, please excuse any words or phrases that may have been misinterpreted. Patient Instructions: Aumentar U500 a 80 unidades 2 veces al d?a. Si est? en ayunas 150 mg/dL por la ma?analilia aumentar a 85 unidades 2 veces al d?a seguimiento con enfermera de educaci?n sobre diabetes en 1 mes Utilice la lynda 15 para tratar la glucosa por debajo de 70 mg/dL Coding Level of Care Code Est Pt Level 1 (67664) Diagnoses Diabetic retinopathy associated with type 2 diabetes mellitus E11.319
== END 2024-01-20 14:41 | disposition home or self-care (01) ==
PROVIDERS: PCP Internal Medicine; Visit Provider Registered Nurse Diabetes Educator
DX: E11.319 Type 2 diabetes mellitus with unspecified diabetic retinopathy without macular edema (principal)

== ENCOUNTER → 2024-01-20 14:08 | Outpatient (BNVA) | payer OTHER, SELFPAY | PROVIDERS: PCP Internal Medicine; Visit Provider Registered Nurse Diabetes Educator | DX: E11.319 Type 2 diabetes mellitus with unspecified diabetic retinopathy without macular edema (principal) | CPT/HCPCS: 99211 ==

== ENCOUNTER 2024-01-28 08:00 | Outpatient (AMB) | payer OTHER, SELFPAY ==
--- NOTE | 2024-01-28 08:30 | A.OFFPC_ITS ---
Vital Signs 01/28/24 08:36 Height 5 ft 9 in Weight 203 lb BMI 30.0 BP 142/70 H Blood Pressure Location Lt brachial Position Sitting Intake Visit Reasons: Annual Exam Intake Note: Patient here for a physical exam Behavioral Health Worker Required: No Accompanied by: Self / Same As Patient Allergies adhesive tape [ADHESIVE TAPE] Allergy (Intermediate, Verified 01/28/24 09:04) RASH pioglitazone [From ACTOS] Allergy (Intermediate, Verified 01/28/24 09:04) facial edema,rash latex Allergy (Mild, Verified 01/28/24 09:04) Rash Medication List - Last Reconciled 01/28/24 by Analilia Schumacher MD acetaminophen (Tylenol Extra Strength) 500 mg PO Q6H PRN acetone (urine) test (Ketone Urine Test strips) As directed glucose over 300, illness, nausea, vomiting t.i.d. albuterol sulfate 90 mcg/actuation 1 inh inhalation QID PRN albuterol sulfate 2.5 mg (3 mL) inhalation QID PRN 25 days artifi.tears(hypromellose)(PF) 0.3% 1 drp ophthalmic-Right Q4-6H PRN ascorbate calcium (vitamin C) 500 mg PO DAILY blood pressure kit-extra large As directed blood sugar diagnostic (FreeStyle Lite Strips) TEST 4 TIMES DAILY blood-glucose meter (FreeStyle Lite Meter kit) TEST 4 TIMES DAILY buspirone 15 mg PO TID canagliflozin (Invokana) 300 mg PO DAILY cane As directed cephalexin 500 mg PO BID 7 days cetirizine (Zyrtec) 10 mg PO DAILY 90 days cholecalciferol (vitamin D3) 50 mcg PO DAILY citalopram 10 mg PO DAILY cyanocobalamin (vitamin B-12) 1,000 mcg IM Q4W 4 weeks cyclobenzaprine 10 mg PO TID PRN diclofenac sodium 75 mg PO BID docusate sodium 100 mg PO DAILY doxycycline hyclate 100 mg PO BID 7 days ergocalciferol (vitamin D2) 1,250 mcg PO QWEEK 90 days escitalopram oxalate 5 mg PO DAILY ferrous sulfate 325 mg PO DAILY fluticasone propionate 50 mcg/actuation (Flonase Allergy Relief) 1 spray intranasal DAILY 30 days furosemide 20 mg PO BID 90 days gabapentin 100 mg PO TID 30 days glucagon 3 mg/actuation (Baqsimi) 3 mg intranasal .prn PRN 30 days MDD 6 mg [glucose tablets 15 grams PO .prn PRN 30 days MDD 12 tablets] hydrocortisone 2.5% (Proctozone-HC) 1 appl IA BID PRN hydrocortisone-pramoxine 1-1 % (Proctofoam HC) 1 appl IA DAILY hydroxyzine HCl 1 - 2 tabs PO QID ibuprofen 400 mg PO TID PRN insulin lispro (Humalog KwikPen U-200 Insulin) up to 375 units per day via pump subcutaneously use as directed; 30 days insulin regular hum U-500 conc (Humulin R U-500 (Concentrated) Insulin) Infuse up to 500 units per day via insulin pump subcutaneously; insulin regular hum U-500 conc 80 units (0.16 mL) subcut BID 30 days insulin syringe-needle U-100 (Advocate Syringes) Use 1 needle once a month lidocaine 5% (Lidoderm) 1 patch topical DAILY PRN MDD remove after 12 hours lisinopril 10 mg PO DAILY methylcellulose (laxative) (Citrucel Sugar Free oral powder) 2 grams PO DAILY PRN montelukast 10 mg PO DAILY 90 days nebulizers (AeroEclipse II Nebulizer) As directed nortriptyline 10 mg PO BEDTIME ondansetron 4 mg PO Q6-8H PRN oxycodone-acetaminophen 5-325 mg 1 tab PO Q8H PRN 30 days pantoprazole 40 mg PO DAILY 30 days pen needle, diabetic (BD Shy 2nd Gen Pen Needle) As directed qid prn pump failure pen needle, diabetic (Comfort EZ Pen Landrum) As directed injection twice a day prochlorperazine maleate 10 mg PO TID PRN rosuvastatin 10 mg PO DAILY Shower Chair As directed simethicone (Gas Relief Extra Strength) 125 mg PO TID-QID PRN [skin tac apply to skin at pump site and sensor site after cleansing with alcohol.Insert pump cannula/sensor after skin tac has allowed to dry. Use on pump every three days, every 10 at sensor site.] sodium,potassium,mag sulfates 17.5-3.13-1.6 gram (Suprep Bowel Prep Kit) DILUTE; drink full amount early evening before AND next morning at least 2 hr before procedure; follow w 960 mL water PO syringe with needle (Escapioer Slip Syringe-Needle) For vitamin B12 injection syringe with needle, safety (BD Safety-Jone Detachable Needle) Use 1 syringe once a month thiamine HCl (vitamin B1) 1 tab PO DAILY tirzepatide (Mounjaro) mg subcut tizanidine 4 mg PO Q8H PRN 30 days valacyclovir (Valtrex) 1,000 mg PO TID vitamin A 1 cap PO DAILY Tobacco use date assessed: 05/26/23 Dental Screening Dental Screen Date: 01/28/24 Did you have a dental visit in the last 12 months?: Yes Did you have a dental problem in the last 6 months where you did not have access to dental care?: No Was dental information given to patient?: Patient has dentist HPI HPI Comments History of Present Illness Details The patient is a 48-year-old female presenting with Type 2 Diabetes Mellitus, Essential Hypertension, and Hyperlipidemia for an annual physical examination and management of her chronic conditions. Diabetes has been poorly controlled, with a recent Hemoglobin A1c of 10.4% and blood glucose levels over 300 mg/dL. She uses Humalog insulin via an insulin pump but has been unable to use it effectively due to an abdominal wall abscess treated with antibiotics in December. She reports chronic low back pain controlled with Percocet and a history of gastroesophageal reflux managed with Pantoprazole. The patient has a history of mild major depression and generalized anxiety disorder managed with Buspirone, Citalopram, and Escitalopram. She reports insomnia and episodes of sleep paralysis, which a psychologist has attributed to possible narcolepsy; however, testing remains incomplete. The patient has a buzz in her ear attributed to tinnitus. The patient's previous health screenings include colonoscopy in 2020, finding internal hemorrhoids, and mammograms in February and April, the latter being normal. Pap smear in 2023 was HPV-negative, postponing the next screening for five years. Her Lisinopril 10 mg is prescribed for hypertension, with recent readings of 142/70 mmHg considered slightly elevated. The patient's LDL cholesterol remains elevated at 94 mg/dL, therefore rosuvastatin dosage was rightly increased from 10 mg to 20 mg. The patient has confirmed lactose intolerance, latex, and adhesive tape allergies, with localized reactions. She has internal hemorrhoids and an ovarian cyst discovered on imaging. She does not have a clinical sciences professor but exhibits microalbuminuria. There's mention of a history of abdominal abscesses, resolved by drainage in December. - Routine annual physical examination. - Up-to-date mammograms, most recently n ormal in April. - Pap smear completed in 2023, HPV-negat maye. - Colonoscopy in 2020 due for repeat per previous recommendation. - Requires a tetanus vaccination update. - Vitamin D levels low at 15.1 ng/mL, dasilva pplementation continuation advised. - Follow-up lipid panel required in four months. - Blood pressure monitoring recommended with Nurse Navigator in three weeks. [facility] Medical History (Updated 01/28/24 @ 11:12 by Analilia Schumacher MD) Cellulitis Uncontrolled type 2 diabetes mellitus with hyperglycemia Physical exam Cellulitis of toe of right foot Hospital discharge follow-up Goiter Onychomycosis Vitamin D deficiency T2DM (type 2 diabetes mellitus) Left ankle pain B12 deficiency Left leg pain Acid reflux History of colonic polyps Chronic fatigue Carpal tunnel syndrome Daytime hypersomnia Autoimmune thyroiditis Fibromyalgia Morbid obesity Spondylosis, thoracic, 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 spine without myelopathy History of ulcer disease Sessile colonic polyp Obesity 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 Diabetic nephropathy associated with type 2 diabetes mellitus Diabetic retinopathy associated with type 2 diabetes mellitus Diabetic polyneuropathy associated with type 2 diabetes mellitus Iron (Fe) deficiency anemia History of Graves' disease Lumbar degenerative disc disease Back pain Anxiety and depression GERD (gastroesophageal reflux disease) Asthma Hyperlipidemia Hypertension Diabetes mellitus Polyarthralgia Surgical History History of carpal tunnel surgery of right wrist H/O endoscopy History of cataract extraction History of lumpectomy of left breast History of carpal tunnel surgery of left wrist Hx of section Hx laparoscopic cholecystectomy Hx of esophagogastroduodenoscopy Hx of colonoscopy H/O gastric bypass Family History Father Diabetes Hypertension Mother Diabetes Hypertension Maternal Grandmother Colon cancer Paternal Aunt Cancer of ear Social History Household Members: Family Housing: House Alcohol intake: never Patient Tobacco Use Status: Former Tobacco user Tobacco use type: Cigarette Cigarette Packs Per Day: 1 Cigarettes Per Day: 20.0 Years Smoked: 20 e-Cigarette/Vaping Use: Never Used Second Hand Smoke Exposure: No service: No Current occupational status: disabled Current occupation: right hand dominant Cognitive needs: No Hearing needs: No Vision needs: Yes Female Reproductive History Menstrual Age of Menarche: 14 Questionnaire PHQ-9 Over the last 2 weeks, how often have you been bothered by any of the following problems? 1. Little interest or pleasure in doing things: not at all 2. Feeling down, depressed, or hopeless: several days 3. Trouble falling or staying asleep, or sleeping too much: more than half the days 4. Feeling tired or having little energy: several days 5. Poor appetite or overeating: several days 6. Feeling bad about yourself - or that you are a failure or have let yourself or your family down: not at all 7. Trouble concentrating on things, such as reading the newspaper or watching television: several days 8. Moving or speaking so slowly that other people could have noticed. Or the opposite - being so fidgety or restless that you have been moving around a lot more than usual: not at all 9. Thoughts that you would be better off or of hurting yourself in some way: not at all Total score: 6 Depression Screening Interpretation: Positive Depression Screening Follow-up: Existing condition, In treatment and Follow-up Visit Requested Depression Screening Done: Yes 90408 - PHQ-9 Billing: Yes Source: Developed by Drs. Parmjit Be, Yessi Gold, Ji Mahmood and colleagues, with an educational anni from [employer]. Thrive Questionnaire Date Thrive assessed: 05/26/23 I am a: Parent/Caregiver What is your living situation today?: I have a steady place to live Within the past 12 months, did the food you bought not last and you didn't have the money to get more?: Sometimes True Within the past 12 months, did you worry whether your food would run out before you got money to buy more?: Sometimes True Do you have trouble paying for medicines?: No Do you have trouble getting transportation to medical appointments?: No Do you have trouble paying your heating and electricity bill?: Yes Do you have trouble taking care of your child, family member or friend?: Yes Do you have trouble with day-to-day activities such as bathing, preparing meals, shopping, managing finances, etc.?: Yes Are you currently unemployed and looking for a job?: Yes Are you interested in more education?: I choose not to answer this question Please select the resources that you would like help with: None Currently or been in a relationship where the following occur: No concerns reported THRIVE Score: 3 AUDIT C Alcohol Use Questionnaire (AUDIT-C) 1. How often do you have a drink containing alcohol?: Never Total Score: 0 MARCO-7 AMB Questionnaire MARCO-7 Date MARCO - 7 assessed: 05/26/23 Feeling nervous, anxious, or on edge: 2 = More than half the days Not being able to stop or control worryin = More than half the days Worrying too much about different things: 3 = Nearly every day Trouble relaxin = Nearly every day Being so restless that it is hard to sit still: 3 = Nearly every day Becoming easily annoyed or irritable: 1 = Several days Feeling afraid as if something awful might happen: 1 = Several days Total MARCO-7 score (0-4 normal; 5-9 mild; 10-14 moderate; 15-21 severe): 15 Source: Developed by Drs. Parmjit Be, Yessi Gold, Ji Mahmood and colleagues, with an educational anni from [employer]. MARCO-7 Assessment Billing MARCO-7 Assessment Tool: MARCO-7 Assessment 99904 Review of Systems Const All systems reviewed & are unremarkable except as noted in HPI and below Card Denies chest pain at rest, Denies chest pain with activity, Denies edema, Denies irregular heart rhythm, Denies claudication, Denies dyspnea, Denies dyspnea on exertion, Denies orthopnea, Denies paroxysmal nocturnal dyspnea and Denies slow heart rate Resp Denies cough, Denies dyspnea and Denies dyspnea on exertion GI Denies abdominal pain, Denies change in bowel habits, Denies excessive flatus, Denies nausea and Denies vomiting Physical exam (Primary Care) Vital Signs: Last Vital Signs BP 142/70 H 01/28/24 08:36 BMI result Body Mass Index 30.0 BMI Assessment/Plan discussion: High BMI High, discussed plan: lifestyle, weight reduction, dietary and physical activity Tobacco/Smoking Status: Tobacco use Status Tobacco use date assessed 05/26/23 01/28/24 08:38 Patient Tobacco Use Status Former Tobacco user 01/28/24 08:38 Tobacco use type Cigarette 01/28/24 08:38 e-Cigarette/Vaping Use Never Used 01/28/24 08:38 PHQ-9: PHQ-9 Score PHQ-9: Total score 6 01/28/24 09:34 Depression Screening Interpretation: Positive Depression Screening Follow-up: Existing condition, In treatment and Follow-up Visit Requested Thrive Assessment: Date of Thrive Assessment Date Thrive assessed 05/26/23 01/28/24 08:38 Currently or been in a relationship where the following occur: No concerns reported HENWA Head: Yes normal to inspection, Yes normocephalic and Yes atraumatic Ears: external ears normal Eyes General: appearance normal, both eyes and all related structures Eyelids: Yes eyelids normal Conjunctivae: conjunctivae normal Neck Neck: Yes normal visual inspection and Yes supple Resp Effort & Inspection: normal respiratory effort Auscultation: clear to auscultation bilaterally Cardio Jugular venous distension: no JVD Rate: regular rate Rhythm: regular rhythm Heart sounds: S1 normal heart sound present and S2 normal heart sound present GI Inspection: Yes normal to inspection Palpation (GI): Soft to palpation and nontender Auscultation: normal bowel sounds Skin General skin exam: no rashes or lesions noted Neuro General: no focal motor deficits Extrem General: Yes full ROM Psych Appearance: grossly normal Immunizations Boostrix Tdap 2.5 Lf unit-8 mcg-5 Lf/0.5 mL intramuscular syringe Performing Provider: Analilia Shcumacher MD [facility] Administered by: LASHONDA Alexander on 01/28/24 09:34 Dose Route Admin Location Dispensed Lot Number Expiration Date NDC Senior Site Manager 0.5 mL IM Left Deltoid 0.5 mL [id number] 11/21/24 [id number] [employer] VIS Given Date VIS Provided VIS Publication Date 01/28/24 Single Vaccine 20 Eligibility Eligibility Date Funding Source Not [facility] Eligible 01/28/24 Private Coding Level of Care Code Est Pt Level 4 (81953) Est Pt Prev Care 40-64y(56106) Diagnoses Physical exam Z00.00 Hyperlipidemia LDL goal <70 E78.5 Moderate major depression F32.1 Essential hypertension I10 Uncontrolled type 2 diabetes mellitus with hyperglycemia E11.65 Abdominal wall abscess L02.211 Daytime somnolence R40.0 Microalbuminuria R80.9 Additional Codes MARCO-7 Assessment Billing - MARCO-7 Assessment Tool: MARCO-7 Assessment 58950 ([id number]) PHQ-9 - 87982 - PHQ-9 Billing: Yes ([id number]) Time Spent (min) 38 Assessment & Plan Assessment & Plan (1) Physical exam: Code(s): Z00.00 - Encounter for general adult medical examination without abnormal findings Category: Medical (2) Hyperlipidemia LDL goal <70: Code(s): E78.5 - Hyperlipidemia, unspecified Category: Medical (3) Moderate major depression: Code(s): F32.1 - Major depressive disorder, single episode, moderate Category: Medical (4) Essential hypertension: Code(s): I10 - Essential (primary) hypertension Category: Medical (5) Uncontrolled type 2 diabetes mellitus with hyperglycemia: Code(s): E11.65 - Type 2 diabetes mellitus with hyperglycemia Category: Medical (6) Abdominal wall abscess: Code(s): L02.211 - Cutaneous abscess of abdominal wall Category: Medical (7) Daytime somnolence: Code(s): R40.0 - Somnolence Category: Medical (8) Microalbuminuria: Code(s): R80.9 - Proteinuria, unspecified Category: Medical Plan - Type 2 Diabetes Mellitus: Continue insulin therapy; consider adjusting dosage due to glycemic levels; follow-up with nephrology due to microalbuminuria. - Essential Hypertension: Increase monitoring; continue Lisinopril; blood pressure re-evaluation in three weeks. - Hyperlipidemia: Increase Rosuvastatin to 20 mg; recheck lipid panel in four months. - Internal Hemorrhoids: Monitor symptoms; review colonoscopy findings. - Ovarian Cyst: Monitor cyst; surgical consultation for abscess capsule removal. - Chronic Low Back Pain: Continue Percocet as needed; consider referral for chronic pain management. - Gastroesophageal Reflux Disease: Continue Pantoprazole management. - Mental Health: Continue current psychotropic medications; follow-up with mental health services. - Sleep Disorders: Referral to sleep medicine for further evaluation of narcolepsy. - Allergies: Management plan for avoidance and relief as needed. Patient was informed and verbally consented to the use of an ambient scribe for clinic note documentation during this visit. I discussed the patient's poor glycemic control and the need for potential adjustments in insulin therapy due to the abdominal wall abscess limiting pump use. Increased Rosuvastatin was advised given her elevated LDL cholesterol. Blood pressure monitoring was recommended to reassess hypertension control and possible medication adjustment. The patient was informed about follow-up labs to monitor cholesterol and vitamin D status. I spoke about the need for nephrology and surgical consultations for microalbuminuria and abdominal abscess management respectively. We addressed the patient's mental health treatment continuation and the importance of consistent medications. I discussed sleep study follow-up to evaluate the etiology of sleep disturbances and potential narcolepsy. Risks, benefits, and alternatives of surgical interventions were reviewed, and the necessity of maintaining updated vaccinations was reinforced. Orders: Orders Complete Blood Count Auto Diff 4 Months D64.9 - Anemia, unspecified Comprehensive [place]. Panel Fast 4 Months I10 - Essential (primary) hypertension TDaP Immunization Today Z23 - Encounter for immunization Lipid Panel 4 Months E78.5 - Hyperlipidemia, unspecified Microalbumin, Random (w Creat) 4 Months R80.9 - Proteinuria, unspecified Vitamin D 25-OH Total 4 Months E55.9 - Vitamin D deficiency, unspecified Vitamin B12 and Folate 4 Months E53.8 - Deficiency of other specified B group vitamins IRON PROFILE 4 Months D64.9 - Anemia, unspecified Referrals Nephrology Referral R80.9 - Proteinuria, unspecified General Surgery Referral L02.211 - Cutaneous abscess of abdominal wall Neurology Referral R40.0 - Somnolence Medications: New sulfamethoxazole-trimethoprim 800-160 mg (Bactrim DS) 1 tab PO BID 10 days 20 tabs 0RF rosuvastatin 20 mg PO DAILY 90 days 90 tabs 1RF Discontinued rosuvastatin Discontinued Reason: Patient Completed Course 10 mg PO DAILY 90 tabs 1RF Patient Instructions: - Continue current medications for diabetes, hypertension, hyperlipidemia, gastroesophageal reflux, depression, and anxiety. - Follow up on blood pressure monitoring with Nurse Navigator in three weeks. - Continue with Vitamin D supplementation daily. - Return to clinic for tetanus vaccination. - Schedule consultation with nephrology for microalbuminuria. - Obtain surgical consultation regarding abdominal abscess management. - Consider further evaluation for sleep issues with a referral to sleep medicine. - Maintain follow-up for mental health support. - Ensure follow-up lipid panel and other lab work in four months. - Call the clinic if experiencing any new or worsening symptoms.
[2024-01-28 08:36] VITALS: BP 142/70
== END 2024-01-28 09:33 | disposition home or self-care (01) ==
PROVIDERS: PCP Internal Medicine; Visit Provider Internal Medicine
DX: Z00.00 Encounter for general adult medical examination without abnormal findings (principal); E11.65 Type 2 diabetes mellitus with hyperglycemia; E78.5 Hyperlipidemia, unspecified; F32.1 Major depressive disorder, single episode, moderate; I10 Essential (primary) hypertension; L02.211 Cutaneous abscess of abdominal wall; R40.0 Somnolence; R80.9 Proteinuria, unspecified

== ENCOUNTER → 2024-01-28 08:00 | Outpatient (BNVA) | payer OTHER, SELFPAY | PROVIDERS: PCP Internal Medicine; Visit Provider Internal Medicine | DX: Z00.00 Encounter for general adult medical examination without abnormal findings (principal); Z23 Encounter for immunization; E78.5 Hyperlipidemia, unspecified; F32.1 Major depressive disorder, single episode, moderate; I10 Essential (primary) hypertension; E11.65 Type 2 diabetes mellitus with hyperglycemia; L02.211 Cutaneous abscess of abdominal wall; R80.9 Proteinuria, unspecified | CPT/HCPCS: 90471; 90715; 96127; 99212; 99396 ==

== ENCOUNTER 2024-02-02 10:58 | Outpatient (AMB) | payer OTHER, SELFPAY ==
--- NOTE | 2024-02-02 11:21 | A.OFFVIS_ITS ---
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 albuterol sulfate 90 mcg/actuation 1 inh inhalation QID PRN albuterol sulfate 2.5 mg (3 mL) inhalation QID PRN 25 days artifi.tears(hypromellose)(PF) 0.3% 1 drp ophthalmic-Right Q4-6H PRN ascorbate calcium (vitamin C) 500 mg PO DAILY blood pressure kit-extra large As directed blood sugar diagnostic (FreeStyle Lite Strips) TEST 4 TIMES DAILY blood-glucose meter (FreeStyle Lite Meter kit) TEST 4 TIMES DAILY buspirone 15 mg PO TID canagliflozin (Invokana) 300 mg PO DAILY cane As directed cephalexin 500 mg PO BID 7 days cetirizine (Zyrtec) 10 mg PO DAILY 90 days cholecalciferol (vitamin D3) 50 mcg PO DAILY citalopram 10 mg PO DAILY cyanocobalamin (vitamin B-12) 1,000 mcg IM Q4W 4 weeks cyclobenzaprine 10 mg PO TID PRN diclofenac sodium 75 mg PO BID docusate sodium 100 mg PO DAILY doxycycline hyclate 100 mg PO BID 7 days ergocalciferol (vitamin D2) 1,250 mcg PO QWEEK 90 days escitalopram oxalate 5 mg PO DAILY ferrous sulfate 325 mg PO DAILY fluticasone propionate 50 mcg/actuation (Flonase Allergy Relief) 1 spray intranasal DAILY 30 days furosemide 20 mg PO BID 90 days gabapentin 100 mg PO TID 30 days glucagon 3 mg/actuation (Baqsimi) 3 mg intranasal .prn PRN 30 days MDD 6 mg [glucose tablets 15 grams PO .prn PRN 30 days MDD 12 tablets] hydrocortisone 2.5% (Proctozone-HC) 1 appl MI BID PRN hydrocortisone-pramoxine 1-1 % (Proctofoam HC) 1 appl MI DAILY hydroxyzine HCl 1 - 2 tabs PO QID ibuprofen 400 mg PO TID PRN insulin lispro (Humalog KwikPen U-200 Insulin) up to 375 units per day via pump subcutaneously use as directed; 30 days insulin regular hum U-500 conc (Humulin R U-500 (Concentrated) Insulin) Infuse up to 500 units per day via insulin pump subcutaneously; insulin regular hum U-500 conc 80 units (0.16 mL) subcut BID 30 days insulin syringe-needle U-100 (Advocate Syringes) Use 1 needle once a month lidocaine 5% (Lidoderm) 1 patch topical DAILY PRN MDD remove after 12 hours lisinopril 10 mg PO DAILY methylcellulose (laxative) (Citrucel Sugar Free oral powder) 2 grams PO DAILY PRN montelukast 10 mg PO DAILY 90 days nebulizers (AeroEclipse II Nebulizer) As directed nortriptyline 10 mg PO BEDTIME ondansetron 4 mg PO Q6-8H PRN oxycodone-acetaminophen 5-325 mg 1 tab PO Q8H PRN 30 days pantoprazole 40 mg PO DAILY 30 days pen needle, diabetic (BD Shy 2nd Gen Pen Needle) As directed qid prn pump failure pen needle, diabetic (Comfort EZ Pen [place]) As directed injection twice a day prochlorperazine maleate 10 mg PO TID PRN rosuvastatin 20 mg PO DAILY 90 days Shower Chair As directed simethicone (Gas Relief Extra Strength) 125 mg PO TID-QID PRN [skin tac apply to skin at pump site and sensor site after cleansing with alcohol.Insert pump cannula/sensor after skin tac has allowed to dry. Use on pump every three days, every 10 at sensor site.] sodium,potassium,mag sulfates 17.5-3.13-1.6 gram (Suprep Bowel Prep Kit) DILUTE; drink full amount early evening before AND next morning at least 2 hr before procedure; follow w 960 mL water PO sulfamethoxazole-trimethoprim 800-160 mg (Bactrim DS) 1 tab PO BID 10 days syringe with needle (USEUM Luer Slip Syringe-Needle) For vitamin B12 injection syringe with needle, safety (BD Safety-Jone Detachable Needle) Use 1 syringe once a month thiamine HCl (vitamin B1) 1 tab PO DAILY tirzepatide (Mounjaro) mg subcut tizanidine 4 mg PO Q8H PRN 30 days valacyclovir (Valtrex) 1,000 mg PO TID vitamin A 1 cap PO DAILY HPI Comments Details: 48-yr-old female presents for new in-person patient visit for hypersomnia and sleep difficulties. Pt was previously seen by this examiner in Oct 2020. Pt did not have in-lab sleep study after last visit in 2020. Pt reports she continues to have snoring and daytime tiredness.. She feels most energized in the morning when inactive. She can easily doze off or fall asleep when inactive, even when talking with others. She has had 2 in-lab PSG's- (2014 and 2019- AHI 0.3/hr with O2 james 88%), which did not reveal any sleep disordered breathing or sleep apnea. Sep 2022 HST showed AHI 2/hr w/ O2 james 83% w/ Average SpO2 97%. Sleep questionnaire: Have you ever been diagnosed with a sleep disorder? No Have you ever had a sleep study in the past? Yes Have you ever been treated for a sleep disorder? Yes Do you take medications for a sleep disorder? Citalopram, Buspar, Nortriptyline. Do you snore? Yes Do you wake up gasping at night? Yes Do you have episodes of apneas? Yes If yes, are they witnessed? yes Do you have episodes of nocturnal chest pain or dyspnea? No Do you have difficulty initiating sleep? Yes Do you have difficulty maintaining sleep? Yes Do you wake up tired? Yes Do you have headaches upon awakening? Yes- daily Do you wake up with dry mouth or throat? Yes Do you have GERD? Yes Do you have daytime tiredness or fatigue? Yes Do you have nocturnal leg cramps? Yes Do you have symptoms of restless legs? Yes Do you act out your dreams? Talks in her sleep Do you easily fall asleep when inactive? Yes Have you ever had episodes of sudden weakness? Yes Have you ever had episodes of sudden weakness associated with strong emotions? No Pt also reports ruminating thoughts, sleep behaviors, parasomnias?, sleep paralysis, hypnagogic hallucinations and other times as well. Pt endorses family h/o similar sleep s/s- brother has EDS and TARI, son has insomnia. Sleep hygiene questionnaire: Occupation status: applying for disability Usual bedtime is at 9-10pm Usual time to fall asleep sometime after 10pm Usual wake-up time 3-4am and cannot fall back to sleep Usual out of bed time is at 3-4am Naps: Takes scheduled naps- 15 minutes at 1-2pm, but also unintended naps. Sleep environment: comfortable, cool, quiet. does use a lamp in her room. Electronic use in bedroom: TV or Phone- at times, but can fall asleep. Exercise: None. Caffeine or other stimulants: Coffee 1 cups of coffee per day, but sometimes a second cup at 4pm. [facility] Medical History Cellulitis Uncontrolled type 2 diabetes mellitus with hyperglycemia Physical exam Cellulitis of toe of right foot Hospital discharge follow-up Goiter Onychomycosis Vitamin D deficiency T2DM (type 2 diabetes mellitus) Left ankle pain B12 deficiency Left leg pain Acid reflux History of colonic polyps Chronic fatigue Carpal tunnel syndrome Daytime hypersomnia Autoimmune thyroiditis Fibromyalgia Morbid obesity Spondylosis, thoracic, 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 spine without myelopathy History of ulcer disease Sessile colonic polyp Obesity Tracee's disease assisted (current) use of insulin Diabetic nephropathy associated with type 2 diabetes mellitus Diabetic retinopathy associated with type 2 diabetes mellitus Diabetic polyneuropathy associated with type 2 diabetes mellitus Iron (Fe) deficiency anemia History of Graves' disease Lumbar degenerative disc disease Back pain Anxiety and depression GERD (gastroesophageal reflux disease) Asthma Hyperlipidemia Hypertension Diabetes mellitus Polyarthralgia Surgical History History of carpal tunnel surgery of right wrist H/O endoscopy History of cataract extraction History of lumpectomy of left breast History of carpal tunnel surgery of left wrist Hx of section Hx laparoscopic cholecystectomy Hx of esophagogastroduodenoscopy Hx of colonoscopy H/O gastric bypass Family History Father Diabetes Hypertension Mother Diabetes Hypertension Maternal Grandmother Colon cancer Paternal Aunt Cancer of ear Social History Household Members: Family Housing: House Alcohol intake: never Patient Tobacco Use Status: Former Tobacco user Tobacco use type: Cigarette Cigarette Packs Per Day: 1 Cigarettes Per Day: 20.0 Years Smoked: 20 e-Cigarette/Vaping Use: Never Used Second Hand Smoke Exposure: No service: No Current occupational status: disabled Current occupation: right hand dominant Cognitive needs: No Hearing needs: No Vision needs: Yes Female Reproductive History Menstrual Age of Menarche: 14 Physical Exam Vital Signs: Last Vital Signs Pulse 74 02/02/24 11:22 BP 122/64 02/02/24 11:22 Pulse Ox 96 02/02/24 11:22 Oxygen Delivery Method Room Air 02/02/24 11:22 BMI result Body Mass Index 30.1 Const General: no acute distress Orientation/consciousness: patient oriented x3 Resp Effort & Inspection: normal respiratory effort and able to speak in complete sentences Neuro General: patient oriented x3 Psych Mental Status: mental status grossly normal Speech and movement: Clear speech present Attitude: cooperative Assessment & Plan Assessment & Plan (1) Sleep difficulties: Code(s): G47.9 - Sleep disorder, unspecified Category: Medical (2) Daytime somnolence: Code(s): R40.0 - Somnolence Category: Medical (3) Restless leg syndrome: Code(s): G25.81 - Restless legs syndrome Category: Medical (4) Excessive daytime sleepiness: Code(s): G47.19 - Other hypersomnia Category: Medical Plan Pt is advised to undergo in-lab PSG to assess for sleep apnea and PLMS. If in-lab PSG is inconclusive, consider In-lab PSG w/ MSLT. Check ferritin level- as pt has s/s RLS in setting of known anemia. Will follow-up upon review of above and patient to follow-up in clinic in 6 mon ths or sooner prn. Orders: Orders RT PSG in-lab sleep study 02/02/24 R40.0 - Somnolence, G25.81 - Restless legs syndrome, G47.9 - Sleep disorder, unspecified, G47.19 - Other hypersomnia Ferritin 02/02/24 D64.9 - Anemia, unspecified Coding Level of Care Code New Pt Level 4 (88282) Diagnoses Sleep difficulties G47.9 Daytime somnolence R40.0 Restless leg syndrome G25.81 Excessive daytime sleepiness G47.19 [place] Sleepiness Scale Questions Sitting and reading: high chance of dozing Watching TV: high chance of dozing Sitting inactive in a theater, movie etc.: moderate chance of dozing As a passenger in a car for an hour without break: slight chance of dozing Lying down in the afternoon when circumstances permit: high chance of dozing Sitting and talking to someone: would never doze Sitting quietly after lunch without alcohol: high chance of dozing In a car, while stopped for a few minutes in the traffic: would never doze ESS < 10: normal, ESS > 12: pathologic: 15
[2024-02-02 11:22] VITALS: BP 122/64; PULSE 74; O2SAT 96; BMI 30.1
== END 2024-02-02 12:21 | disposition home or self-care (01) ==
PROVIDERS: PCP Internal Medicine; Visit Provider Nurse Practitioner Family
DX: G47.9 Sleep disorder, unspecified (principal); R40.0 Somnolence; G25.81 Restless legs syndrome; G47.19 Other hypersomnia
CPT/HCPCS: 99204

== ENCOUNTER → 2024-02-02 10:58 | Outpatient (BNVA) | payer OTHER, SELFPAY | PROVIDERS: PCP Internal Medicine; Visit Provider Nurse Practitioner Family | DX: G47.9 Sleep disorder, unspecified (principal); G25.81 Restless legs syndrome; G47.19 Other hypersomnia; R40.0 Somnolence | CPT/HCPCS: 99202 ==

== ENCOUNTER 2024-02-05 14:14 | Outpatient (REF) | payer OTHER, SELFPAY ==
[2024-02-05 16:29] LABS: Osmolality, Serum 294 mosm/kg (281-305)
[2024-02-05 16:35] LABS: Appearance Urine Clear; Color Urine Yellow; Glucose Urine UA >=1000 mg/dL (Negative); Leukocyte Esterase Urine Negative (Negative); Nitrite Urine Negative (Negative); PH 5.5 (5.0-9.0); Specific Gravity - Urine >= 1.030 (1.005-1.025); UMIC TRIGGER UA YES; Urine Blood Negative (Negative); Urine Ketones Negative (Negative); Urine Protein Negative (Neg-Trace)
[2024-02-05 16:53] LABS: Anion Gap 13 (12-20); Blood Urea Nitrogen 12 mg/dL (9-16); Calcium 9.3 mg/dL (8.4-10.2); Carbon Dioxide 26 mmol/L (22-29); Chloride 100 mmol/L (96-108); Estimated Glomerular Filt Rate > 60; Glucose Random 365 mg/dL (60-115); Potassium 3.9 mmol/L (3.3-5.1); Sodium 135 mmol/L (135-145); Uric Acid 2.6 mg/dL (2.4-5.7)
[2024-02-05 16:55] LABS: TSH reflex Free T4 0.99 uIU/mL (0.32-4.0)
[2024-02-05 17:08] LABS: Bacteria Urine Trace (None Seen); Hyaline Casts Urine 0-2 /LPF (0-2); RBC Urine 0-2 /HPF (0-2); Squamous Epithelial Cell Urine 0-2 /HPF (0-2); WBC Urine 0-5 /HPF (0-5)
[2024-02-05 18:09] LABS: Osmolality Urine 806 mosm/kg (373-1093)
[2024-02-11 20:54] LABS: Cortisol, Free 0.33 mcg/dL
== END 2024-02-05 14:15 | disposition home or self-care (01) ==
LOC: HO.LAB 14:14
PROVIDERS: PCP Internal Medicine; Visit Provider Internal Medicine Hypertension Specialist
DX: E87.1 Hypo-osmolality and hyponatremia (principal)
CPT/HCPCS: 36415; 80048; 81001; 81003; 82530; 83930; 83935; 84300; 84443; 84550; 99202

== ENCOUNTER 2024-02-05 14:14 | Outpatient (AMB) | payer OTHER, SELFPAY ==
--- NOTE | 2024-02-05 14:23 | HO.NEPHOV_ITS ---
Vital Signs 02/05/24 14:24 Height 5 ft 9 in Weight 202 lb BMI 29.8 BP 130/72 Blood Pressure Location Rt brachial Position Sitting Intake Visit Reasons: Proteinuria/ LVM Car Rental Deliverer Required: No Car Rental Deliverer Name: Alexandra [id number] Accompanied by: Self / Same As Patient Allergies adhesive tape [ADHESIVE TAPE] Allergy (Intermediate, Verified 02/05/24 14:28) RASH pioglitazone [From ACTOS] Allergy (Intermediate, Verified 02/05/24 14:28) facial edema,rash latex Allergy (Mild, Verified 02/05/24 14:28) Rash HPI Comments Details: 48-year-old man with a history of diabetes mellitus and hypertension referred for hyponatremia. Upon reviewing the labs it appears that she has had chronic hyponatremia for at least 5 or 6 years. Serum sodium has been in the low 130s. The lowest recorded reading was 129 back in 2019. She is on low-dose of citalopram. She admits to drinking more than 10 bottles of water a day. She has undergone gastric bypass surgery and since then she has been drinking plenty of water. She denies any alcohol intake. At present she has no history of headache nausea or vomiting. No chest pain No polyuria polydipsia. No diarrhea constipation. No edema. No palpitations no rash no fever. [facility] Medical History Cellulitis Uncontrolled type 2 diabetes mellitus with hyperglycemia Physical exam Cellulitis of toe of right foot Hospital discharge follow-up Goiter Onychomycosis Vitamin D deficiency T2DM (type 2 diabetes mellitus) Left ankle pain B12 deficiency Left leg pain Acid reflux History of colonic polyps Chronic fatigue Carpal tunnel syndrome Daytime hypersomnia Autoimmune thyroiditis Fibromyalgia Morbid obesity Spondylosis, thoracic, 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 spine without myelopathy History of ulcer disease Sessile colonic polyp Obesity 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 Diabetic nephropathy associated with type 2 diabetes mellitus Diabetic retinopathy associated with type 2 diabetes mellitus Diabetic polyneuropathy associated with type 2 diabetes mellitus Iron (Fe) deficiency anemia History of Graves' disease Lumbar degenerative disc disease Back pain Anxiety and depression GERD (gastroesophageal reflux disease) Asthma Hyperlipidemia Hypertension Diabetes mellitus Polyarthralgia Surgical History History of carpal tunnel surgery of right wrist H/O endoscopy History of cataract extraction History of lumpectomy of left breast History of carpal tunnel surgery of left wrist Hx of section Hx laparoscopic cholecystectomy Hx of esophagogastroduodenoscopy Hx of colonoscopy H/O gastric bypass Family History Father Diabetes Hypertension Mother Diabetes Hypertension Maternal Grandmother Colon cancer Paternal Aunt Cancer of ear Social History Household Members: Family Housing: House Alcohol intake: never Patient Tobacco Use Status: Former Tobacco user Tobacco use type: Cigarette Cigarette Packs Per Day: 1 Cigarettes Per Day: 20.0 Years Smoked: 20 e-Cigarette/Vaping Use: Never Used Second Hand Smoke Exposure: No service: No Current occupational status: disabled Current occupation: right hand dominant Cognitive needs: No Hearing needs: No Vision needs: Yes Female Reproductive History Menstrual Age of Menarche: 14 Physical Exam Vital Signs: Last Vital Signs BP 130/72 02/05/24 14:24 BMI result Body Mass Index 29.8 Comfortable Neck supple no JVD. Lungs entry equal no rales. Heart S1-S2 heard no gallop or rub. Abdomen soft nontender. Neuro alert awake oriented. No asterixis. Extremities no edema. Results Reviewed Nephrology Results: Hgb 11.6 g/dl (12.0-16.0) L 01/09/24 WBC 7.6 X10*3/uL (4.8-10.8) 01/09/24 Plt Count 346 X10*3/uL (160-400) 01/09/24 Sodium 130 mmol/L (135-145) L 01/09/24 Potassium 4.4 mmol/L (3.3-5.1) 01/09/24 Chloride 94 mmol/L (96-108) L 01/09/24 Carbon Dioxide 28 mmol/L (22-29) 01/09/24 BUN 13 mg/dL (9-16) 01/09/24 Creatinine 0.80 mg/dL (0.5-1.4) 01/09/24 Calcium 9.0 mg/dL (8.4-10.2) 01/09/24 Urine Creatinine 75.63 mg/dL 01/09/24 Assessment & Plan Assessment & Plan (1) Hyponatremia: Code(s): E87.1 - Hypo-osmolality and hyponatremia Category: Medical Plan Anitha has chronic asymptomatic mild hyponatremia. Clinically she appears euvolemic. Excessive free water intake could be the main contributing factor. However other causes including hypothyroidism and adrenal insufficiency should be ruled out. I have initiated a workup for hyponatremia Check serum osmolality TSH and cortisol levels Check urine osmolality sodium creatinine. Encouraged her to limit her free water intake I have asked her to cut down from 10 bottles today down to 8 bottles a day. Further workup will be based on the outcome of the above investigations. Goal is to maintain serum sodium more than 130 millimoles. Orders: Orders Cortisol, Free Today E87.1 - Hypo-osmolality and hyponatremia Sodium Urine Random Today E87.1 - Hypo-osmolality and hyponatremia UA and rflx microscopic Today E87.1 - Hypo-osmolality and hyponatremia Uric Acid Today E87.1 - Hypo-osmolality and hyponatremia Basic Metabolic Panel Today E87.1 - Hypo-osmolality and hyponatremia Osmolality Urine Today E87.1 - Hypo-osmolality and hyponatremia Osmolality, Serum Today E87.1 - Hypo-osmolality and hyponatremia TSH reflex Free T4 Today E87.1 - Hypo-osmolality and hyponatremia Basic Metabolic Panel 4 Weeks E87.1 - Hypo-osmolality and hyponatremia Coding Level of Care Code New Pt Level 4 (05246) Diagnoses Hyponatremia E87.1
[2024-02-05 14:24] VITALS: BP 130/72; BMI 29.8
== END 2024-02-05 14:51 | disposition home or self-care (01) ==
PROVIDERS: PCP Internal Medicine; Visit Provider Internal Medicine Hypertension Specialist
DX: E87.1 Hypo-osmolality and hyponatremia (principal)
CPT/HCPCS: 99204

== ENCOUNTER 2024-02-09 09:10 | Outpatient (AMB) | payer OTHER, SELFPAY ==
--- NOTE | 2024-02-09 09:12 | MHC.OFFVIS ---
Vital Signs 02/09/24 09:18 Height 5 ft 9 in Weight 205 lb 0.478 oz BMI 30.3 BP 132/72 Blood Pressure Location Rt brachial Position Sitting Pulse 87 Pulse Source Pulse Oximeter Intake Visit Reasons: DM w. pump Intake Note: Patient present today to follow up on Type 2 Diabetes Mellitus. Last Diabetic Eye exam: 12/2023 Last Podiatry Visit: 09/2023, needs a new referral Analysis Or Research Safety Inspector has . Random Glucose: 249 mg/dl HgA1C: 10.4% 01/08/24 Retail District Manager Required: Yes Retail District Manager Language: Inspector Publications Services: Retail District Manager Present Retail District Manager Name: Cynthia Information Interpreted: non-clinical & clinical Accompanied by: Self / Same As Patient Allergies adhesive tape [ADHESIVE TAPE] Allergy (Intermediate, Verified 02/09/24 09:20) RASH pioglitazone [From ACTOS] Allergy (Intermediate, Verified 02/09/24 09:20) facial edema,rash latex Allergy (Mild, Verified 02/09/24 09:20) Rash HPI Comments Details: 48 YO F with PMHx T2DM who is seen in F/U for the same. She has a history of prior bariatric surgery in June of 2015. Current regimen Canagliflozin 300 mg PO daily Mounjaro 10 mg mg once a week Humulin u-500 85 units BID Using T slim pump with basal rate of 3 units an hour and carb ratio of 1:3 with correction factor of 12:8 14 days of sensor data downloaded from through 02/09/2024. This reveals an average glucose of ,329 with range 56-.0 She is at goal 7% of the time, above goal 92% of the time, and below goal 0% of the time.. Pattern shows post-breakfast hyperglycemia with hyperglycemia throughout the day.. She has using the sensor 41% of the time Reports no low sugars rarely. Has symptoms with hypoglycemia. Treats according to the rule of 15's. She does not accurately count carbohydrates out of fear of hypoglycemia if she inputs the correct amount of carbs eaten into her pump. She is not using the sensor and is only checking her blood sugars rarely Has a positive Family history of T2DM. Has eyes checked yearly, last eye exam , has retinopathy. Has neuropathy. Has nephropathy, on Lisinopril 5 mg PO daily. UAC 17.3 04/14/2021. Has HLD, on rosuvastatin 10 mg PO daily. NLDL 79 04/14/2021. Denies CAD. Diet: Does follow a low carb diet. Weight: Stable. Has diabetes education. Labs: Laboratory Tests 04/14/21 04/14/21 04/14/21 08:19 08:19 08:19 Creatinine 0.69 Estimated GFR > 60 Hemoglobin A1c % 10.3 LDL Cholesterol, Calc 79 25-OH Vitamin D Total 12 L TSH 1.86 Microalb/Creat Ratio 04/14/21 08:25 Creatinine Estimated GFR Hemoglobin A1c % LDL Cholesterol, Calc 25-OH Vitamin D Total TSH Microalb/Creat Ratio 17.3 Has mid-line absess on antibiotics [facility] Medical History Cellulitis Uncontrolled type 2 diabetes mellitus with hyperglycemia Physical exam Cellulitis of toe of right foot Hospital discharge follow-up Goiter Onychomycosis Vitamin D deficiency T2DM (type 2 diabetes mellitus) Left ankle pain B12 deficiency Left leg pain Acid reflux History of colonic polyps Chronic fatigue Carpal tunnel syndrome Daytime hypersomnia Autoimmune thyroiditis Fibromyalgia Morbid obesity Spondylosis, thoracic, 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 spine without myelopathy History of ulcer disease Sessile colonic polyp Obesity Tracee's disease [facility] (current) use of insulin Diabetic nephropathy associated with type 2 diabetes mellitus Diabetic retinopathy associated with type 2 diabetes mellitus Diabetic polyneuropathy associated with type 2 diabetes mellitus Iron (Fe) deficiency anemia History of Graves' disease Lumbar degenerative disc disease Back pain Anxiety and depression GERD (gastroesophageal reflux disease) Asthma Hyperlipidemia Hypertension Diabetes mellitus Polyarthralgia Surgical History History of carpal tunnel surgery of right wrist H/O endoscopy History of cataract extraction History of lumpectomy of left breast History of carpal tunnel surgery of left wrist Hx of section Hx laparoscopic cholecystectomy Hx of esophagogastroduodenoscopy Hx of colonoscopy H/O gastric bypass Family History Father Diabetes Hypertension Mother Diabetes Hypertension Maternal Grandmother Colon cancer Paternal Aunt Cancer of ear Social History Household Members: Family Housing: House Alcohol intake: never Patient Tobacco Use Status: Former Tobacco user Tobacco use type: Cigarette Cigarette Packs Per Day: 1 Cigarettes Per Day: 20.0 Years Smoked: 20 e-Cigarette/Vaping Use: Never Used Second Hand Smoke Exposure: No service: No Current occupational status: disabled Current occupation: right hand dominant Cognitive needs: No Hearing needs: No Vision needs: Yes Female Reproductive History Menstrual Age of Menarche: 14 Physical Exam Vital Signs: Last Vital Signs Pulse 87 02/09/24 09:18 BP 132/72 02/09/24 09:18 BMI result Body Mass Index 30.3 Absence of Cushingoid features. Absence of acromegalic features. Neck exam reveals nl size thyroid about 15 gms. No thyroid nodules palpable. No carotid bruits present. Lungs CTA. Heart S1 S2, Reg R/R. No M/R/ G. Skin exam reveals absence of vitiligo or acanthosis nigricans. Abdominal exam reveals Soft NT/ND with NA BS. No organomegaly present. Neck Other: . Extrem Other: Visual exam of foot performed. Right 2nd toe bandaged No onchomycosis, no callouses.Pulses 2 + distally Sensation intact to monofilament exam. Vibratory sensation sensed is intact with 128 Hz tuning fork Results Reviewed Results Reviewed: Laboratory Last Values Glucose (Clinic) 249 mg/dL (60-115) H 02/09/24 09:29 Assessment & Plan Assessment & Plan (1) T2DM (type 2 diabetes mellitus): Code(s): E11.9 - Type 2 diabetes mellitus without complications Category: Medical Qualifiers: Diabetes mellitus complication status: with hyperglycemia Diabetes mellitus termite renewal inspector insulin use: with senior living use Qualified Code(s): E11.65 - Type 2 diabetes mellitus with hyperglycemia; Z79.4 - [facility] (current) use of insulin Plan: This is a 48-year-old female with a history of type 2 diabetes being treated with Mounjaro , Invokana and U-500 insulin with poor glycemic control and known microvascular complications namely nephropathy, retinopathy and neuropathy Plan is to have the patient restart Tandem pump at 4 units/hr 5A -9P and 2.5 u/h from 9P- 5A and increase insulin/carb to 1;2.5 Will stop the Invokana for now until hyperglycemia improves and then reinitiate . Will have pt f/u with Rand Wilcox NP in 3 wks. Pt was told via paraprofessional interpreter to report any hypoglycemia . She has an appointment with the CDE in 2 weeks Coding Level of Care Code Est Pt Level 4 (08123) Complex EM visit Add On G2211 Diagnoses Type 2 diabetes mellitus with hyperglycemia, with long-term current use of insulin E11.65; Z79.4 Diabetes mellitus complication status: with hyperglycemia Diabetes mellitus termite renewal inspector insulin use: with senior living use
[2024-02-09 09:18] VITALS: BP 132/72; PULSE 87; BMI 30.3
[2024-02-09 09:36] LABS: Glucose, Whole Blood 249 mg/dL (60-115)
== END 2024-02-09 10:02 | disposition home or self-care (01) ==
PROVIDERS: PCP Internal Medicine; Visit Provider Internal Medicine Endocrinology, Diabetes & Metabolism
DX: E11.65 Type 2 diabetes mellitus with hyperglycemia (principal); Z79.4 Long term (current) use of insulin
CPT/HCPCS: 99214; G2211

== ENCOUNTER → 2024-02-09 09:10 | Outpatient (BNVA) | payer OTHER, SELFPAY | PROVIDERS: PCP Internal Medicine; Visit Provider Internal Medicine Endocrinology, Diabetes & Metabolism | DX: E11.65 Type 2 diabetes mellitus with hyperglycemia (principal); Z96.41 Presence of insulin pump (external) (internal); Z79.4 Long term (current) use of insulin | CPT/HCPCS: 82947; 99212 ==

== ENCOUNTER 2024-02-10 09:08 | Outpatient (AMB) | payer OTHER, SELFPAY ==
--- NOTE | 2024-02-10 09:14 | MHC.OFFVIS ---
Intake Visit Reasons: Abdominal abscess Intake Note: Patient referred by pcp Dr. Toño Schumacher for abdominal abscess. Present for 2m. Patient c/o: Was drained 3X in the past. Flight Operations Manager Required: Yes Flight Operations Manager Name: Willow GALLEGO Accompanied by: Self / Same As Patient Allergies adhesive tape [ADHESIVE TAPE] Allergy (Intermediate, Verified 02/10/24 09:23) RASH pioglitazone [From ACTOS] Allergy (Intermediate, Verified 02/10/24 09:23) facial edema,rash latex Allergy (Mild, Verified 02/10/24 09:23) Rash HPI Comments Details: Patient presents for 1. Follow-up of a lower abdominal wall carbuncle 2. A new carbuncle also in the same area. She was seen ER recently where she underwent I&D of what seems to be abdominal carbuncle/abscess. She is completing her antibiotic course. She has never had such lesions before. Chart was reviewed and patient evaluated [facility] Medical History Cellulitis Uncontrolled type 2 diabetes mellitus with hyperglycemia Physical exam Cellulitis of toe of right foot Hospital discharge follow-up Goiter Onychomycosis Vitamin D deficiency T2DM (type 2 diabetes mellitus) Left ankle pain B12 deficiency Left leg pain Acid reflux History of colonic polyps Chronic fatigue Carpal tunnel syndrome Daytime hypersomnia Autoimmune thyroiditis Fibromyalgia Morbid obesity Spondylosis, thoracic, 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 spine without myelopathy History of ulcer disease Sessile colonic polyp Obesity 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 Diabetic nephropathy associated with type 2 diabetes mellitus Diabetic retinopathy associated with type 2 diabetes mellitus Diabetic polyneuropathy associated with type 2 diabetes mellitus Iron (Fe) deficiency anemia History of Graves' disease Lumbar degenerative disc disease Back pain Anxiety and depression GERD (gastroesophageal reflux disease) Asthma Hyperlipidemia Hypertension Diabetes mellitus Polyarthralgia Surgical History History of carpal tunnel surgery of right wrist H/O endoscopy History of cataract extraction History of lumpectomy of left breast History of carpal tunnel surgery of left wrist Hx of section Hx laparoscopic cholecystectomy Hx of esophagogastroduodenoscopy Hx of colonoscopy H/O gastric bypass Family History Father Diabetes Hypertension Mother Diabetes Hypertension Maternal Grandmother Colon cancer Paternal Aunt Cancer of ear Social History Household Members: Family Housing: House Alcohol intake: never Patient Tobacco Use Status: Former Tobacco user Tobacco use type: Cigarette Cigarette Packs Per Day: 1 Cigarettes Per Day: 20.0 Years Smoked: 20 e-Cigarette/Vaping Use: Never Used Second Hand Smoke Exposure: No service: No Current occupational status: disabled Current occupation: right hand dominant Cognitive needs: No Hearing needs: No Vision needs: Yes Female Reproductive History Menstrual Age of Menarche: 14 Physical Exam GI Other: Abdomen mildly corpulent, soft, benign. Patient has a lower midline resolving carbuncle left of midline. Patient has a draining carbuncle just to the right of this. This was further expressed and drained completely. Dressing applied. Assessment & Plan Assessment & Plan (1) Carbuncle: Code(s): L02.93 - Carbuncle, unspecified Category: Surgical Plan Patient was been given local instructions including warm compresses, may shower with the dressing off and then up reapply bandage. Patient will be given renewal of antibiotics. She will see me as directed or p.r.n.. All questions answered Coding Level of Care Code New Pt Level 4 (70789) Diagnoses Carbuncle L02.93
== END 2024-02-10 09:30 | disposition home or self-care (01) ==
PROVIDERS: PCP Internal Medicine; Referring Provider Internal Medicine; Visit Provider Surgery
DX: L02.93 Carbuncle, unspecified (principal)
CPT/HCPCS: 99204

== ENCOUNTER → 2024-02-10 09:08 | Outpatient (BNVA) | payer OTHER, SELFPAY | PROVIDERS: PCP Internal Medicine; Referring Provider Internal Medicine; Visit Provider Surgery | DX: L02.93 Carbuncle, unspecified (principal) | CPT/HCPCS: 99202 ==

== ENCOUNTER 2024-02-17 10:56 | Outpatient (AMB) | payer OTHER, SELFPAY ==
--- NOTE | 2024-02-17 11:02 | MHC.OFFVIS ---
Vital Signs 02/17/24 11:03 Height 5 ft 9 in Weight 205 lb 0.478 oz BMI 30.3 Intake Visit Reasons: 1wk follow up abd abscess Intake Note: This patient presents for one week follow-up for abdominal abscess. Pt c/o; reports no complaints at this time. [employer] Required: Yes [employer] Language: Pipe Finishing Supervisor Services: [employer] Offered & Declined Accompanied by: Self / Same As Patient Allergies adhesive tape [ADHESIVE TAPE] Allergy (Intermediate, Verified 02/17/24 11:04) RASH pioglitazone [From ACTOS] Allergy (Intermediate, Verified 02/17/24 11:04) facial edema,rash latex Allergy (Mild, Verified 02/17/24 11:04) Rash HPI Comments Details: Patient presents for follow-up of her abdominal wall abscess wounds. She has marked improvement of her symptoms [facility] Medical History Cellulitis Uncontrolled type 2 diabetes mellitus with hyperglycemia Physical exam Cellulitis of toe of right foot Hospital discharge follow-up Goiter Onychomycosis Vitamin D deficiency T2DM (type 2 diabetes mellitus) Left ankle pain B12 deficiency Left leg pain Acid reflux History of colonic polyps Chronic fatigue Carpal tunnel syndrome Daytime hypersomnia Autoimmune thyroiditis Fibromyalgia Morbid obesity Spondylosis, thoracic, 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 spine without myelopathy History of ulcer disease Sessile colonic polyp Obesity 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 Diabetic nephropathy associated with type 2 diabetes mellitus Diabetic retinopathy associated with type 2 diabetes mellitus Diabetic polyneuropathy associated with type 2 diabetes mellitus Iron (Fe) deficiency anemia History of Graves' disease Lumbar degenerative disc disease Back pain Anxiety and depression GERD (gastroesophageal reflux disease) Asthma Hyperlipidemia Hypertension Diabetes mellitus Polyarthralgia Surgical History History of carpal tunnel surgery of right wrist H/O endoscopy History of cataract extraction History of lumpectomy of left breast History of carpal tunnel surgery of left wrist Hx of section Hx laparoscopic cholecystectomy Hx of esophagogastroduodenoscopy Hx of colonoscopy H/O gastric bypass Family History Father Diabetes Hypertension Mother Diabetes Hypertension Maternal Grandmother Colon cancer Paternal Aunt Cancer of ear Social History Household Members: Family Housing: House Alcohol intake: never Patient Tobacco Use Status: Former Tobacco user Tobacco use type: Cigarette Cigarette Packs Per Day: 1 Cigarettes Per Day: 20.0 Years Smoked: 20 e-Cigarette/Vaping Use: Never Used Second Hand Smoke Exposure: No service: No Current occupational status: disabled Current occupation: right hand dominant Cognitive needs: No Hearing needs: No Vision needs: Yes Female Reproductive History Menstrual Age of Menarche: 14 Physical Exam Vital Signs: BMI result Body Mass Index 30.3 GI Other: Infraumbilical/suprapubic area demonstrates resolving carbuncles of the abdominal wall. Assessment & Plan Assessment & Plan (1) Carbuncle: Code(s): L02.93 - Carbuncle, unspecified Category: Surgical (2) Abdominal wall abscess: Code(s): L02.211 - Cutaneous abscess of abdominal wall Category: Surgical Plan Patient was been given local wound instructions, and will otherwise follow-up p.r.n.. All questions answered. Coding Level of Care Code Est Pt Level 3 (64478) Diagnoses Carbuncle L02.93 Abdominal wall abscess L02.211
[2024-02-17 11:03] VITALS: BMI 30.3
== END 2024-02-17 11:02 | disposition home or self-care (01) ==
PROVIDERS: PCP Internal Medicine; Visit Provider Surgery
DX: L02.93 Carbuncle, unspecified (principal); L02.211 Cutaneous abscess of abdominal wall
CPT/HCPCS: 99213

== ENCOUNTER → 2024-02-17 10:56 | Outpatient (BNVA) | payer OTHER, SELFPAY | PROVIDERS: PCP Internal Medicine; Visit Provider Surgery | DX: L02.211 Cutaneous abscess of abdominal wall (principal); L02.231 Carbuncle of abdominal wall | CPT/HCPCS: 99212 ==

== ENCOUNTER 2024-02-23 08:25 | Outpatient (AMB) | payer OTHER, SELFPAY ==
--- NOTE | 2024-02-23 08:50 | A.OFFVIS_ITS ---
Intake Intake Visit Reasons: DM Web Analyst Required: Yes Web Analyst Language: Sewer Separation Designer Name: Pt's son Accompanied by: Son Allergies adhesive tape [ADHESIVE TAPE] Allergy (Intermediate, Verified 02/17/24 11:04) RASH pioglitazone [From ACTOS] Allergy (Intermediate, Verified 02/17/24 11:04) facial edema,rash latex Allergy (Mild, Verified 02/17/24 11:04) Rash HPI Comprehensive Diabetes Asmnt Most Recent Diabetes Results: Hemoglobin A1c 8.3 % 05/14/18 Microalb/Creat Ratio 145.4 ug/mg cr (<30) H 01/09/24 Cholesterol 182 mg/dL (<200) 01/09/24 HDL Cholesterol 67 mg/dL (>40) 01/09/24 Triglycerides 106 mg/dL (<150) 01/09/24 Creatinine 0.79 mg/dL (0.5-1.4) 02/05/24 Blood Urea Nitrogen 12 mg/dL (9-16) 02/05/24 Sodium 135 mmol/L (135-145) 02/05/24 Potassium 3.9 mmol/L (3.3-5.1) 02/05/24 Chloride 100 mmol/L (96-108) 02/05/24 Carbon Dioxide 26 mmol/L (22-29) 02/05/24 Calcium 9.3 mg/dL (8.4-10.2) 02/05/24 AST 18 U/L (5-31) 01/09/24 ALT 23 U/L (0-31) 01/09/24 Total Protein 8.0 g/dL (6.5-8.0) 01/09/24 Albumin 4.4 g/dL (3.5-5.0) 01/09/24 [facility] Medical History Cellulitis Uncontrolled type 2 diabetes mellitus with hyperglycemia Physical exam Cellulitis of toe of right foot Hospital discharge follow-up Goiter Onychomycosis Vitamin D deficiency T2DM (type 2 diabetes mellitus) Left ankle pain B12 deficiency Left leg pain Acid reflux History of colonic polyps Chronic fatigue Carpal tunnel syndrome Daytime hypersomnia Autoimmune thyroiditis Fibromyalgia Morbid obesity Spondylosis, thoracic, 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 spine without myelopathy History of ulcer disease Sessile colonic polyp Obesity 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 Diabetic nephropathy associated with type 2 diabetes mellitus Diabetic retinopathy associated with type 2 diabetes mellitus Diabetic polyneuropathy associated with type 2 diabetes mellitus Iron (Fe) deficiency anemia History of Graves' disease Lumbar degenerative disc disease Back pain Anxiety and depression GERD (gastroesophageal reflux disease) Asthma Hyperlipidemia Hypertension Diabetes mellitus Polyarthralgia Surgical History History of carpal tunnel surgery of right wrist H/O endoscopy History of cataract extraction History of lumpectomy of left breast History of carpal tunnel surgery of left wrist Hx of section Hx laparoscopic cholecystectomy Hx of esophagogastroduodenoscopy Hx of colonoscopy H/O gastric bypass Family History Father Diabetes Hypertension Mother Diabetes Hypertension Maternal Grandmother Colon cancer Paternal Aunt Cancer of ear Social History Household Members: Family Housing: House Alcohol intake: never Patient Tobacco Use Status: Former Tobacco user Tobacco use type: Cigarette Cigarette Packs Per Day: 1 Cigarettes Per Day: 20.0 Years Smoked: 20 e-Cigarette/Vaping Use: Never Used Second Hand Smoke Exposure: No service: No Current occupational status: disabled Current occupation: right hand dominant Cognitive needs: No Hearing needs: No Vision needs: Yes Female Reproductive History Menstrual Age of Menarche: 14 Assessment & Plan Assessment & Plan (1) T2DM (type 2 diabetes mellitus): Code(s): E11.9 - Type 2 diabetes mellitus without complications Qualifiers: Diabetes mellitus detention insulin use: with truck terminal manager use Diabetes mellitus complication status: with hyperglycemia Qualified Code(s): E11.65 - Type 2 diabetes mellitus with hyperglycemia; Z79.4 - superintendent container terminal (current) use of insulin Plan: Patient presents for pump training for [facility] with control IQ, and Dexcom G7 Patient resumed insulin pump therapy with Humalog U200 The following topics were reviewed today: Effects infection have on glucose levels - Sensor setting (if applicable) ?? High Alert: 180 mg/dl ??? Low Alert: 80 mg/dl Average glucose for the past 2 weeks 313 mg/dL Above target 98% At target 2% Below target 0% Tandem ID: [email or web address] [email or web address] password: [email or web address] At last visit with Dr. Aguayo on 02/09/2024 patient was instructed to resume insulin pump therapy. After review of pump information, it appears patient resumed insulin pump therapy on 02/20/2024. Since resuming insulin pump therapy glucose levels have improved slightly. Patient is still running well above target, using up to 160 units of Humalog U 200 via insulin pump Patient reports that while she has had the infection insulin demand has in creased, patient given samples insulin pump cartridges in infusion sets At today's visit See adjustments below to pump settings Patient instructed to contact provider or educator if she begins to experience hypoglycemia. Request for Mounjaro 10 mg script, and Humalog U 200 be sent to pharmacy Safety information: Importance of a backup plan, for manual injections, proper prescriptions and emergency supplies ketone strips, and rules for testing for ketones Setting verified by CDCES, Pump Settings:with U200 insulin Basal rate(s) (units/hour) : 12 AM? to 12 AM? 4 units / hr Bolus setting Insulin Carbohydrate Ratio (s) 12 AM? to 12 AM? 1:2.5 Correction Factor / Sensitivity Factor 12 AM? to 5 AM?1:8 New 5 AM to 12 AM 1:7 Active Insulin Time:? 5 hours Medications: Resumed insulin lispro (Humalog KwikPen U-200 Insulin) up to 375 units per day via pump subcutaneously use as directed; 30 days 42 mL 3RF E11.65 - Type 2 diabetes mellitus with hyperglycemia Patient Instructions: Patient has follow-up appointment with DECAY CONTROL OPERATOR on 03/08/2024 Patient will follow-up with agricultural extension educator in 2 months Coding Level of Care Code Est Pt Level 1 (23219) Diagnoses Type 2 diabetes mellitus with hyperglycemia, with long-term current use of insulin E11.65; Z79.4 Diabetes mellitus truck terminal manager insulin use: with detention use Diabetes mellitus complication status: with hyperglycemia
== END 2024-02-23 08:58 | disposition home or self-care (01) ==
PROVIDERS: PCP Internal Medicine; Visit Provider Registered Nurse Diabetes Educator
DX: E11.65 Type 2 diabetes mellitus with hyperglycemia (principal); Z79.4 Long term (current) use of insulin

== ENCOUNTER → 2024-02-23 08:25 | Outpatient (BNVA) | payer OTHER, SELFPAY | PROVIDERS: PCP Internal Medicine; Visit Provider Registered Nurse Diabetes Educator | DX: E11.65 Type 2 diabetes mellitus with hyperglycemia (principal); E11.21 Type 2 diabetes mellitus with diabetic nephropathy; E11.42 Type 2 diabetes mellitus with diabetic polyneuropathy; E11.319 Type 2 diabetes mellitus with unspecified diabetic retinopathy without macular edema; Z79.4 Long term (current) use of insulin; Z96.41 Presence of insulin pump (external) (internal); Z46.81 Encounter for fitting and adjustment of insulin pump | CPT/HCPCS: 99211 ==

== ENCOUNTER 2024-03-02 07:53 | Outpatient (AMB) | payer OTHER, SELFPAY ==
--- NOTE | 2024-03-02 08:01 | A.OFFPC_ITS ---
Vital Signs 03/02/24 08:03 Height 5 ft 9 in Weight 198 lb BMI 29.2 BP 128/80 Blood Pressure Location Lt brachial Position Sitting Intake Visit Reasons: dm - see comments Intake Note: Patient here for a follow up DM Energy Efficiency Specialist Required: No Accompanied by: Self / Same As Patient Allergies adhesive tape [ADHESIVE TAPE] Allergy (Intermediate, Verified 03/02/24 08:17) RASH pioglitazone [From ACTOS] Allergy (Intermediate, Verified 03/02/24 08:17) facial edema,rash latex Allergy (Mild, Verified 03/02/24 08:17) Rash Medication List - Last Reconciled 03/02/24 by Analilia Schumacher MD acetaminophen (Tylenol Extra Strength) 500 mg PO Q6H PRN acetone (urine) test (Ketone Urine Test strips) As directed glucose over 300, illness, nausea, vomiting t.i.d. albuterol sulfate 90 mcg/actuation 1 inh inhalation QID PRN albuterol sulfate 2.5 mg (3 mL) inhalation QID PRN 25 days artifi.tears(hypromellose)(PF) 0.3% 1 drp ophthalmic-Right Q4-6H PRN ascorbate calcium (vitamin C) 500 mg PO DAILY blood pressure kit-extra large As directed blood sugar diagnostic (FreeStyle Lite Strips) TEST 4 TIMES DAILY blood-glucose meter (FreeStyle Lite Meter kit) TEST 4 TIMES DAILY buspirone 15 mg PO TID canagliflozin (Invokana) 300 mg PO DAILY cane As directed cetirizine (Zyrtec) 10 mg PO DAILY 90 days cholecalciferol (vitamin D3) 50 mcg PO DAILY citalopram 10 mg PO DAILY cyanocobalamin (vitamin B-12) 1,000 mcg IM Q4W 4 weeks cyclobenzaprine 10 mg PO TID PRN diclofenac sodium 75 mg PO BID docusate sodium 100 mg PO DAILY ergocalciferol (vitamin D2) 1,250 mcg PO QWEEK 90 days escitalopram oxalate 5 mg PO DAILY ferrous sulfate 325 mg PO DAILY fluticasone propionate 50 mcg/actuation (Flonase Allergy Relief) 1 spray intranasal DAILY 30 days furosemide 20 mg PO BID 90 days gabapentin 100 mg PO TID 30 days glucagon 3 mg/actuation (Baqsimi) 3 mg intranasal .prn PRN 30 days MDD 6 mg [glucose tablets 15 grams PO .prn PRN 30 days MDD 12 tablets] hydrocortisone 2.5% (Proctozone-HC) 1 appl [place] BID PRN hydrocortisone-pramoxine 1-1 % (Proctofoam HC) 1 appl VT DAILY hydroxyzine HCl 1 - 2 tabs PO QID ibuprofen 400 mg PO TID PRN insulin lispro (Humalog KwikPen U-200 Insulin) up to 375 units per day via pump subcutaneously use as directed; 30 days insulin regular hum U-500 conc (Humulin R U-500 (Concentrated) Insulin) Infuse up to 500 units per day via insulin pump subcutaneously; insulin regular hum U-500 conc 80 units (0.16 mL) subcut BID 30 days insulin syringe-needle U-100 (Advocate Syringes) Use 1 needle once a month lidocaine 5% (Lidoderm) 1 patch topical DAILY PRN MDD remove after 12 hours lisinopril 10 mg PO DAILY methylcellulose (laxative) (Citrucel Sugar Free oral powder) 2 grams PO DAILY PRN montelukast 10 mg PO DAILY 90 days nebulizers (AeroEclipse II Nebulizer) As directed nortriptyline 10 mg PO BEDTIME ondansetron 4 mg PO Q6-8H PRN oxycodone-acetaminophen 5-325 mg 1 tab PO Q8H PRN 30 days pantoprazole 40 mg PO DAILY 30 days pen needle, diabetic (BD Shy 2nd Gen Pen Needle) As directed qid prn pump failure pen needle, diabetic (Comfort EZ Pen Vian) As directed injection twice a day prochlorperazine maleate 10 mg PO TID PRN rosuvastatin 20 mg PO DAILY 90 days Shower Chair As directed simethicone (Gas Relief Extra Strength) 125 mg PO TID-QID PRN [skin tac apply to skin at pump site and sensor site after cleansing with alcohol.Insert pump cannula/sensor after skin tac has allowed to dry. Use on pump every three days, every 10 at sensor site.] sodium,potassium,mag sulfates 17.5-3.13-1.6 gram (Suprep Bowel Prep Kit) DILUTE; drink full amount early evening before AND next morning at least 2 hr before procedure; follow w 960 mL water PO syringe with needle ([employer] Luer Slip Syringe-Needle) For vitamin B12 injection syringe with needle, safety (BD Safety-Jone Detachable Needle) Use 1 syringe once a month thiamine HCl (vitamin B1) 1 tab PO DAILY tirzepatide (Mounjaro) 10 mg (0.5 mL) subcut QWEEK tizanidine 4 mg PO Q8H PRN 30 days valacyclovir (Valtrex) 1,000 mg PO TID vitamin A 1 cap PO DAILY Tobacco use date assessed: 05/26/23 Dental Screening Dental Screen Date: 03/02/24 Did you have a dental visit in the last 12 months?: Yes Did you have a dental problem in the last 6 months where you did not have access to dental care?: No Was dental information given to patient?: Patient has dentist HPI HPI Comments History of Present Illness Details The patient is a 49-year-old female presenting with a follow-up for multiple chronic conditions including diabetes mellitus, hypertension, asthma, and autoimmune thyroiditis. She has a noted history of elevated microalbuminuria detected in December, prompting a repeat laboratory test recommendation. The patient has been managing her diabetes with Humalog insulin and oral medication Invokana 300 mg. Her hypertension is treated with Lisinopril 10 mg, and hypercholesterolemia management includes verifying LDL levels below 70. She reports taking Monjaro for obesity management, which has improved her BMI to 29.2, no longer classifying her as obese. She is under treatment for asthma with an Albuterol inhaler as needed, Vitamin C, and Singular. In relation to her thyroiditis, previous labs conducted by her senior staff specialized employment showed adequate renal function, and her thyroid profile and cortisol levels were normal. The patient also experiences depression with anxiety, managed by Citalopram 10 mg, BuSpar 15 mg thrice daily, and Nortriptyline at night. The patient expresses tiredness and weakness, correlated with a previous low hemoglobin level though not explicitly detailed during this visit. [facility] Medical History (Updated 03/02/24 @ 12:26 by Analilia Schumacher MD) Cellulitis Uncontrolled type 2 diabetes mellitus with hyperglycemia Physical exam Cellulitis of toe of right foot Hospital discharge follow-up Goiter Onychomycosis Vitamin D deficiency T2DM (type 2 diabetes mellitus) Left ankle pain B12 deficiency Left leg pain Acid reflux History of colonic polyps Chronic fatigue Carpal tunnel syndrome Daytime hypersomnia Autoimmune thyroiditis Fibromyalgia Morbid obesity Spondylosis, thoracic, 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 spine without myelopathy History of ulcer disease Sessile colonic polyp Obesity Tracee's disease 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 Diabetic nephropathy associated with type 2 diabetes mellitus Diabetic retinopathy associated with type 2 diabetes mellitus Diabetic polyneuropathy associated with type 2 diabetes mellitus Iron (Fe) deficiency anemia History of Graves' disease Lumbar degenerative disc disease Back pain Anxiety and depression GERD (gastroesophageal reflux disease) Asthma Hyperlipidemia Hypertension Diabetes mellitus Polyarthralgia Surgical History History of carpal tunnel surgery of right wrist H/O endoscopy History of cataract extraction History of lumpectomy of left breast History of carpal tunnel surgery of left wrist Hx of section Hx laparoscopic cholecystectomy Hx of esophagogastroduodenoscopy Hx of colonoscopy H/O gastric bypass Family History Father Diabetes Hypertension Mother Diabetes Hypertension Maternal Grandmother Colon cancer Paternal Aunt Cancer of ear Social History Household Members: Family Housing: House Alcohol intake: never Patient Tobacco Use Status: Former Tobacco user Tobacco use type: Cigarette Cigarette Packs Per Day: 1 Cigarettes Per Day: 20.0 Years Smoked: 20 Packs Per Year: 20 Packs per year/per ci.00 e-Cigarette/Vaping Use: Never Used Second Hand Smoke Exposure: No service: No Current occupational status: disabled Current occupation: right hand dominant Cognitive needs: No Hearing needs: No Vision needs: Yes Female Reproductive History Menstrual Age of Menarche: 14 Questionnaire PHQ-9 Over the last 2 weeks, how often have you been bothered by any of the following problems? 1. Little interest or pleasure in doing things: not at all 2. Feeling down, depressed, or hopeless: several days 3. Trouble falling or staying asleep, or sleeping too much: more than half the days 4. Feeling tired or having little energy: several days 5. Poor appetite or overeating: several days 6. Feeling bad about yourself - or that you are a failure or have let yourself or your family down: not at all 7. Trouble concentrating on things, such as reading the newspaper or watching television: several days 8. Moving or speaking so slowly that other people could have noticed. Or the opposite - being so fidgety or restless that you have been moving around a lot more than usual: not at all 9. Thoughts that you would be better off or of hurting yourself in some way: not at all Total score: 6 Depression Screening Interpretation: Positive Depression Screening Follow-up: Existing condition, In treatment, Community Mental Health Worker F/U and Follow- up Visit Requested Depression Screening Done: Yes 48058 - PHQ-9 Billing: Yes Source: Developed by Drs. Parmjit Be, Yessi Gold, Ji Mahmood and colleagues, with an educational anni from [employer]. Thrive Questionnaire Date Thrive assessed: 03/02/24 I am a: Parent/Caregiver What is your living situation today?: I have a steady place to live Within the past 12 months, did the food you bought not last and you didn't have the money to get more?: Sometimes True Within the past 12 months, did you worry whether your food would run out before you got money to buy more?: Sometimes True Do you have trouble paying for medicines?: No Do you have trouble getting transportation to medical appointments?: No Do you have trouble paying your heating and electricity bill?: Yes Do you have trouble taking care of your child, family member or friend?: Yes Do you have trouble with day-to-day activities such as bathing, preparing meals, shopping, managing finances, etc.?: Yes Are you currently unemployed and looking for a job?: Yes Are you interested in more education?: I choose not to answer this question Please select the resources that you would like help with: None Currently or been in a relationship where the following occur: No concerns reported THRIVE Score: 3 AUDIT C Alcohol Use Questionnaire (AUDIT-C) 1. How often do you have a drink containing alcohol?: Never Total Score: 0 MARCO-7 AMB Questionnaire MARCO-7 Date MARCO - 7 assessed: 05/26/23 Feeling nervous, anxious, or on edge: 1 = Several days Not being able to stop or control worryin = Several days Worrying too much about different things: 1 = Several days Trouble relaxin = Several days Being so restless that it is hard to sit still: 1 = Several days Becoming easily annoyed or irritable: 1 = Several days Feeling afraid as if something awful might happen: 1 = Several days Total MARCO-7 score (0-4 normal; 5-9 mild; 10-14 moderate; 15-21 severe): 7 Source: Developed by Drs. Parmjit Be, Yessi Gold, Ji Mahmood and colleagues, with an educational anni from [employer]. MARCO-7 Assessment Billing MARCO-7 Assessment Tool: MARCO-7 Assessment 59190 Review of Systems Const All systems reviewed & are unremarkable except as noted in HPI and below Card Denies chest pain at rest, Denies chest pain with activity, Denies edema, Denies irregular heart rhythm, Denies claudication, Denies dyspnea, Denies dyspnea on exertion, Denies orthopnea, Denies paroxysmal nocturnal dyspnea and Denies slow heart rate Resp Denies cough, Denies dyspnea and Denies dyspnea on exertion GI Denies abdominal pain, Denies change in bowel habits, Denies excessive flatus, Denies nausea and Denies vomiting Physical exam (Primary Care) Vital Signs: Last Vital Signs BP 128/80 03/02/24 08:03 BMI result Body Mass Index 29.2 Tobacco/Smoking Status: Tobacco use Status Tobacco use date assessed 05/26/23 03/02/24 08:02 Patient Tobacco Use Status Former Tobacco user 03/02/24 08:02 Tobacco use type Cigarette 03/02/24 08:02 e-Cigarette/Vaping Use Never Used 03/02/24 08:02 PHQ-9: PHQ-9 Score PHQ-9: Total score 6 03/02/24 09:46 Depression Screening Interpretation: Positive Depression Screening Follow-up: Existing condition, In treatment, Community Mental Health Worker F/U and Follow- up Visit Requested Thrive Assessment: Date of Thrive Assessment Date Thrive assessed 03/02/24 03/02/24 08:02 Currently or been in a relationship where the following occur: No concerns reported Resp Effort & Inspection: normal respiratory effort Auscultation: clear to auscultation bilaterally Cardio Jugular venous distension: no JVD Rate: regular rate Rhythm: regular rhythm Heart sounds: S1 normal heart sound present and S2 normal heart sound present Extrem General: Yes full ROM Results AMB Hemoglobin A1c AMB Hemoglobin A1c 10.8 % Last Edit by LASHONDA Alexander on 03/02/24 08: 18 Results Reviewed Results Reviewed: Laboratory Last Values Hgb A1c (Clinic) 10.8 % (4.0-6.0) H 03/02/24 08:00 Coding Level of Care Code Est Pt Level 4 (79416) Complex EM visit Add On G2211 Diagnoses Uncontrolled type 2 diabetes mellitus with hyperglycemia E11.65 Moderate major depression F32.1 Essential hypertension I10 Hyperlipidemia LDL goal <70 E78.5 Microalbuminuria R80.9 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 Z79.4 Tracee's disease E06.3 Spondylosis of lumbosacral region without myelopathy or radiculopathy M47.817 Additional Codes MARCO-7 Assessment Billing - MARCO-7 Assessment Tool: MARCO-7 Assessment 48496 ([id number]) PHQ-9 - 99934 - PHQ-9 Billing: Yes ([id number]) Time Spent (min) 24 Assessment & Plan Assessment & Plan (1) Uncontrolled type 2 diabetes mellitus with hyperglycemia: Code(s): E11.65 - Type 2 diabetes mellitus with hyperglycemia Category: Medical (2) Moderate major depression: Code(s): F32.1 - Major depressive disorder, single episode, moderate Category: Medical (3) Essential hypertension: Code(s): I10 - Essential (primary) hypertension Category: Medical (4) Hyperlipidemia LDL goal <70: Code(s): E78.5 - Hyperlipidemia, unspecified Category: Medical (5) Microalbuminuria: Code(s): R80.9 - Proteinuria, unspecified Category: Medical (6) longterm (current) use of insulin: Code(s): Z79.4 - 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 Category: Medical (7) Tracee's disease: Code(s): E06.3 - Autoimmune thyroiditis Category: Medical (8) Spondylosis of lumbosacral region without myelopathy or radiculopathy: Code(s): M47.817 - Spondylosis without myelopathy or radiculopathy, lumbosacral region Category: Medical Plan - Reassess microalbuminuria levels with updated urinalysis. - Complete blood work to check hemoglobin levels, thyroid function, Vitamin and D levels, and lipid profile including LDL. - Monitor and manage diabetes with current insulin regimen and medications, assessing glycemic control. - Continue current hypertension management; evaluate blood pressure levels regularly. - Assess Asthma control strategies; maintain the use of an Albuterol inhaler as needed. - Continue treatment for depression and anxiety with Citalopram, BuSpar, and Nortriptyline. - Assess and maintain current weight management and nutritional plan; continue Monjaro for weight control as discussed. - Re-evaluate symptoms related to lumbar spondylosis in correlation with Percocet management. Patient was informed and verbally consented to the use of an ambient scribe for clinic note documentation during this visit. I discussed with the patient the importance of routine laboratory monitoring to manage her chronic conditions effectively. We reviewed the need to repeat her microalbuminuria test due to past elevated results. I emphasized the management of her diabetes, emphasizing the significance of maintaining her BMI and controlling blood sugar levels with her insulin and medication regimen. We explored her current treatment options for depression and anxiety, affirming the importance of adhering to her prescribed medications. Furthermore, I covered the benefits and need for current hypertension and asthma management strategies, maintaining consistent check-ups with her crane operator cab and psychiatrist. We also discussed her previous quitting of smoking and non- alcohol use, which promotes overall health status. Lastly, I confirmed upcoming labs for hemoglobin, thyroid function, Vitamin B12 and D levels, and her lipid profile as part of her comprehensive care plan. All potential side effects and alternatives for medications were communicated, affirming her understanding and agreement with the outlined management strategy. Orders: Orders AMB Hemoglobin A1c Today E11.65 - Type 2 diabetes mellitus with hyperglycemia Vitamin D 25-OH Total Today E55.9 - Vitamin D deficiency, unspecified Microalbumin, Random (w Creat) Today R80.9 - Proteinuria, unspecified Comprehensive [place]. Panel Fast Today E11.65 - Type 2 diabetes mellitus with hyperglycemia Complete Blood Count Auto Diff Today D64.9 - Anemia, unspecified IRON PROFILE Today D64.9 - Anemia, unspecified Vitamin B12 and Folate Today E53.8 - Deficiency of other specified B group vitamins Lipid Panel Today E78.5 - Hyperlipidemia, unspecified Thyroid Stimulating Hormone Today E06.3 - Autoimmune thyroiditis Patient Instructions: - Ensure to complete all prescribed lab tests and follow up with results. - Continue taking medications as prescribed. - Maintain regular visits with the crane operator cab and psychiatrist. - Monitor blood sugar levels and manage dietary intake to support BMI. - Maintain current physical activity and continue with prescribed inhaler use as needed. - Call immediately if experiencing any new symptoms or changes in health conditions.
[2024-03-02 08:03] VITALS: BP 128/80; BMI 29.2
== END 2024-03-02 08:30 | disposition home or self-care (01) ==
PROVIDERS: PCP Internal Medicine; Visit Provider Internal Medicine
DX: E11.65 Type 2 diabetes mellitus with hyperglycemia (principal); F32.1 Major depressive disorder, single episode, moderate; Z79.4 Long term (current) use of insulin; I10 Essential (primary) hypertension; E78.5 Hyperlipidemia, unspecified; R80.9 Proteinuria, unspecified; E06.3 Autoimmune thyroiditis; M47.817 Spondylosis without myelopathy or radiculopathy, lumbosacral region

== ENCOUNTER → 2024-03-02 07:53 | Outpatient (BNVA) | payer OTHER, SELFPAY | PROVIDERS: PCP Internal Medicine; Visit Provider Internal Medicine | DX: E11.9 Type 2 diabetes mellitus without complications (principal); I10 Essential (primary) hypertension; J45.909 Unspecified asthma, uncomplicated; E06.3 Autoimmune thyroiditis; E11.65 Type 2 diabetes mellitus with hyperglycemia; F32.1 Major depressive disorder, single episode, moderate; E78.5 Hyperlipidemia, unspecified; R80.9 Proteinuria, unspecified; M47.817 Spondylosis without myelopathy or radiculopathy, lumbosacral region; Z79.4 Long term (current) use of insulin; Z79.899 Other long term (current) drug therapy; Z87.891 Personal history of nicotine dependence | CPT/HCPCS: 83036; 96127; 99212 ==

== ENCOUNTER 2024-03-08 06:41 | Outpatient (REF) | payer OTHER, SELFPAY ==
[2024-03-08 06:58] LABS: MANUAL DIFF FLAG NO
[2024-03-08 07:37] LABS: Basophils Percent Auto 0.4 % (0-2); Eosinophils Absolute Auto 0.1 X10*3/uL (0.0-0.4); Eosinophils Percent Auto 1.1 % (0-4); Hematocrit 34.5 % (37.0-47.0); Hemoglobin 11.2 g/dl (12.0-16.0); Imm Gran Abs Auto 0.03 X10*3/uL (0.00-0.03); Imm Gran Pct Auto 0.4 % (0.0-0.4); Lymphocytes Percent Auto 27.4 % (20-40); Mean Corpuscular HGB Conc 32.5 g/dl (31.0-35.0); Mean Platelet Volume 9.6 fL (9.4-12.3); Monocytes Absolute Auto 0.6 X10*3/uL (0.1-1.2); Monocytes Percent Auto 8.1 % (2-11); Neutrophils Absolute Auto 4.5 x10*3/uL (2.0-8.3); Neutrophils Percent Auto 62.6 % (45-73); Platelet Count 310 X10*3/uL (160-400); Red Blood Count 4.66 X10*6/uL (4.20-5.50); Red Cell Distribution Width 15.4 % (11.0-16.0); White Blood Count 7.2 X10*3/uL (4.8-10.8)
[2024-03-08 08:12] LABS: Alanine Aminotransferase 25 U/L (0-31); Albumin Level 3.9 g/dL (3.5-5.0); Alkaline Phosphatase 113 U/L (39-117); Anion Gap 10 (12-20); Aspartate Amino Transferase 23 U/L (5-31); Bilirubin Total 0.5 mg/dL (0.0-1.0); Blood Urea Nitrogen 10 mg/dL (9-16); Calcium 9.2 mg/dL (8.4-10.2); Carbon Dioxide 28 mmol/L (22-29); Chloride 104 mmol/L (96-108); Cholesterol 162 mg/dL (<200); Estimated Glomerular Filt Rate > 60; Glucose Fasting 220 mg/dL (60-99); HDL Cholesterol 68 mg/dL (>40); Iron 33 mcg/dL (30-160); LDL Cholesterol Calculated 69 mg/dL (<100); Percent Iron Saturation 8 % (15-50); Potassium 4.3 mmol/L (3.3-5.1); Sodium 138 mmol/L (135-145); Total Iron Binding Capacity 402 mcg/dL (228-428); Total Protein 7.1 g/dL (6.5-8.0); Triglycerides 129 mg/dL (<150); Unsaturated Iron Binding 369 ug/dL
[2024-03-08 08:28] LABS: Thyroid Stimulating Hormone 1.99 uIU/mL (0.32-4.0); Vitamin D 25-OH Total 14.9 ng/mL (>30)
[2024-03-08 08:31] LABS: Appearance Urine Clear; Color Urine Yellow; Glucose Urine UA 250 mg/dL (Negative); Leukocyte Esterase Urine Moderate (2+) (Negative); Nitrite Urine Negative (Negative); PH 5.5 (5.0-9.0); Specific Gravity - Urine 1.025 (1.005-1.025); UMIC TRIGGER UA YES; Urine Blood Negative (Negative); Urine Ketones 15 mg/dL (Negative); Urine Protein Trace mg/dL (Neg-Trace)
[2024-03-08 08:36] LABS: Bacteria Urine 2+ (None Seen); Hyaline Casts Urine 0-2 /LPF (0-2); RBC Urine 0-2 /HPF (0-2); WBC Urine 21-50 /HPF (0-5)
[2024-03-08 08:37] LABS: Folate 14.4 ng/mL (> or = 4.0); Vitamin B12 209 pg/mL (200-900)
[2024-03-08 09:30] LABS: Creatinine Urine 127.48 mg/dL; Microalbum/Creatinine Ratio Ur 25.1 ug/mg cr (<30)
== END 2024-03-08 06:42 | disposition home or self-care (01) ==
LOC: HO.LAB 06:41
PROVIDERS: Absent Provider Internal Medicine; PCP Internal Medicine; Visit Provider Internal Medicine Hypertension Specialist
DX: E11.9 Type 2 diabetes mellitus without complications (principal); E78.5 Hyperlipidemia, unspecified; D64.9 Anemia, unspecified; E55.9 Vitamin D deficiency, unspecified; E53.8 Deficiency of other specified B group vitamins; E06.3 Autoimmune thyroiditis; E78.00 Pure hypercholesterolemia, unspecified; E87.1 Hypo-osmolality and hyponatremia
CPT/HCPCS: 36415; 80053; 80061; 81001; 82043; 82306; 82570; 82607; 82746; 83540; 84443; 85025

== ENCOUNTER 2024-03-09 08:45 | Outpatient (AMB) | payer OTHER, SELFPAY ==
--- NOTE | 2024-03-09 09:03 | A.OFFVIS_ITS ---
Vital Signs 03/09/24 09:07 03/09/24 10:02 Height 5 ft 9 in Weight 198 lb 6.656 oz BMI 29.3 BP 164/90 H 150/80 H Blood Pressure Location Rt brachial Position Sitting Pulse 74 Pulse Source Pulse Oximeter Intake Visit Reasons: T2DM Intake Note: Patient present today to follow up on Type 2 Diabetes Mellitus. Last Diabetic Eye exam: 12/2023 Last Podiatry Visit: Patient does not see a Analytics Specialist, needs new referral Most Recent HgA1C: 10.4% 01/08/24 Random Glucose: 71 mg/dL, 09:10 AM RE-checked Random Glucose: 119 mg/dL, 09:35 AM Legal Arbitrator Required: Yes Legal Arbitrator Language: Records Management Assistant Services: Legal Arbitrator Present Legal Arbitrator Name: [facility] [facility] [place] Information Interpreted: non-clinical & clinical Accompanied by: Self / Same As Patient Allergies adhesive tape [ADHESIVE TAPE] Allergy (Intermediate, Verified 03/02/24 08:17) RASH pioglitazone [From ACTOS] Allergy (Intermediate, Verified 03/02/24 08:17) facial edema,rash latex Allergy (Mild, Verified 03/02/24 08:17) Rash HPI Comments Details: 49 YO F with PMHx T2DM who is seen in F/U for the same. She has a history of prior bariatric surgery in June of 2015. She was seen by Dr. Aguayo one month ago for reinitiation of pump. She is on u200 insulin. Canagliflozin was put temporarily on hold. She has been having low readings. She has had no furthur pump site infection Current regimen Canagliflozin 300 mg PO daily on hold restarted 03/09/24 Mounjaro 10 mg mg once a week Had been on humulin injections: Humulin u- 500 85 units BID and now changed to u200 insuin T slim pump 12a 3.5 new 3.3u 5a 4.0 new 3.3 9a 4 4.0 new 4.2 9p 4 new 4.2 correction factor 12a 1:8 new 1:9 5a 1.7 new 1::9 9a 1.7 new1:.6 9p 17 new 1:6 carb ratio 12a 1:2.5 new 1:3 5a 1:2.5 1:3 9a 1:2.5 1:3 9p 1:2.5 target at night 140 daytime 120 258 average 54% very high 29% high 17% trget 0.5 low 0.1% very low Has a positive Family history of T2DM. Has eyes checked yearly, last eye exam , has retinopathy. Has neuropathy. Has nephropathy, on Lisinopril 5 mg PO daily. UAC 17.3 04/14/2021. Has HLD, on rosuvastatin 10 mg PO daily. NLDL 79 04/14/2021. Denies CAD. Per patient she had a stent placed Diet: Does follow a low carb diet. Weight: Stable. Has diabetes education. [facility] Medical History Cellulitis Uncontrolled type 2 diabetes mellitus with hyperglycemia Physical exam Cellulitis of toe of right foot Hospital discharge follow-up Goiter Onychomycosis Vitamin D deficiency T2DM (type 2 diabetes mellitus) Left ankle pain B12 deficiency Left leg pain Acid reflux History of colonic polyps Chronic fatigue Carpal tunnel syndrome Daytime hypersomnia Autoimmune thyroiditis Fibromyalgia Morbid obesity Spondylosis, thoracic, 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 spine without myelopathy History of ulcer disease Sessile colonic polyp Obesity 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 Diabetic nephropathy associated with type 2 diabetes mellitus Diabetic retinopathy associated with type 2 diabetes mellitus Diabetic polyneuropathy associated with type 2 diabetes mellitus Iron (Fe) deficiency anemia History of Graves' disease Lumbar degenerative disc disease Back pain Anxiety and depression GERD (gastroesophageal reflux disease) Asthma Hyperlipidemia Hypertension Diabetes mellitus Polyarthralgia Surgical History History of carpal tunnel surgery of right wrist H/O endoscopy History of cataract extraction History of lumpectomy of left breast History of carpal tunnel surgery of left wrist Hx of section Hx laparoscopic cholecystectomy Hx of esophagogastroduodenoscopy Hx of colonoscopy H/O gastric bypass Family History Father Diabetes Hypertension Mother Diabetes Hypertension Maternal Grandmother Colon cancer Paternal Aunt Cancer of ear Social History Household Members: Family Housing: House Alcohol intake: never Patient Tobacco Use Status: Former Tobacco user Tobacco use type: Cigarette Cigarette Packs Per Day: 1 Cigarettes Per Day: 20.0 Years Smoked: 20 e-Cigarette/Vaping Use: Never Used Second Hand Smoke Exposure: No service: No Current occupational status: disabled Current occupation: right hand dominant Cognitive needs: No Hearing needs: No Vision needs: Yes Female Reproductive History Menstrual Age of Menarche: 14 Physical Exam Vital Signs: Last Vital Signs Pulse 74 03/09/24 09:07 BP 150/80 H 03/09/24 10:02 BMI result Body Mass Index 29.3 Const Other: Absence of Cushingoid features. Absence of acromegalic features. Neck exam reveals nl size thyroid about 15 gms. No thyroid nodules palpable. Heart S1 S2, Reg R/R. No M/R G. Skin exam reveals absence of vitiligo or acanthosis nigricans. Visual exam of foot performed. No ulcerations or open lesions. No inter digit maceration or fissuring. No onychomycosis, no callouses. Sensation intact to monofilament exam. Vibratory sensation is normal with 128 Hz tuning fork. feet slight cool good cap refill Results Reviewed Results Reviewed: Laboratory Last Values Glucose (Clinic) 119 mg/dL (60-115) H 03/09/24 09:35 Assessment & Plan Assessment & Plan (1) Uncontrolled type 2 diabetes mellitus with hyperglycemia: Code(s): E11.65 - Type 2 diabetes mellitus with hyperglycemia Category: Medical Plan: type 2 diabetes NOW BACK on an insulin pump. Settings changed. Restart invokana. Per patient she had recent stent to legs. The patient had an opportunity to ask questions regarding treatment plan. The patient expressed understanding and agreement with the above treatment plan. The patient is aware they should contact our office by phone for worsening glucose readings or for any low blood sugars which may warrant a change in diabetes medication. Compliance is encouraged with medications and any followup testing/consults which may have been ordered. Medications: Refilled glucagon 3 mg/actuation (Baqsimi) administer x 1 May repeat in 15 minutes if needed 3 mg intranasal .prn PRN 2 ea 1RF Unresponsive hypoglycemia 30 days MDD 6 mg E11.65 - Type 2 diabetes mellitus with hyperglycemia Discontinued insulin regular hum U-500 conc Discontinued Reason: Doctor's Order 80 units (0.16 mL) subcut BID 30 days 20 mL 6RF Patient Instructions: The patient was counseled to achieve a target A1C of 7% (154 avg). Fasting blood sugars should be 90-130 in the morning and less than 180 two hours after meals. Reviewed the relationship between poor diabetic control and the development of complications. The patient was counseled to always carry a source of sugar and on the rule of 15's: Take 3 glucose tablets and repeat again in 15 minutes if blood sugar is not in normal range. Continue to repeat every 15 minutes until blood sugar is normal. Symptoms of DKA (diabetic ketoacidosis): early: frequent urination, dry mouth, fatigue, feeling ill, severe symptoms: ketones in the urine, abdominal pain, nausea, vomiting and weakness. It is important to hydrate with sugar free liquids every 15-30 minutes and bring the sugars down to normal levels. If you are moderate or severe with ketones or unable to bring glucose to less than 200, go to the emergency room. Coding Level of Care Code Est Pt Level 4 (66412) Complex EM visit Add On G2211 Diagnoses Uncontrolled type 2 diabetes mellitus with hyperglycemia E11.65 Time Spent (min) 30 Comment Reviewing labs/provider notes, glucose sensor/pump reports, face to face, chart doc
[2024-03-09 09:07] VITALS: BP 164/90; PULSE 74; BMI 29.3
[2024-03-09 09:22] LABS: Glucose, Whole Blood 71 mg/dL (60-115)
[2024-03-09 09:38] LABS: Glucose, Whole Blood 119 mg/dL (60-115)
[2024-03-09 10:02] VITALS: BP 150/80
== END 2024-03-09 10:00 | disposition home or self-care (01) ==
PROVIDERS: PCP Internal Medicine; Visit Provider Nurse Practitioner Adult Health
DX: E11.65 Type 2 diabetes mellitus with hyperglycemia (principal)
CPT/HCPCS: 99214; G2211

== ENCOUNTER → 2024-03-09 08:45 | Outpatient (BNVA) | payer OTHER, SELFPAY | PROVIDERS: PCP Internal Medicine; Visit Provider Nurse Practitioner Adult Health | DX: E87.1 Hypo-osmolality and hyponatremia (principal); R80.9 Proteinuria, unspecified; E11.65 Type 2 diabetes mellitus with hyperglycemia; Z79.4 Long term (current) use of insulin; Z79.84 Long term (current) use of oral hypoglycemic drugs; Z96.41 Presence of insulin pump (external) (internal) | CPT/HCPCS: 82947; 99212 ==

== ENCOUNTER 2024-03-09 13:46 | Outpatient (AMB) | payer OTHER, SELFPAY ==
[2024-03-09 13:49] VITALS: BP 160/80; PULSE 79; O2SAT 90; BMI 29.4
--- NOTE | 2024-03-09 13:49 | HO.NEPHOV_ITS ---
Vital Signs 03/09/24 13:49 Height 5 ft 9 in Weight 199 lb BMI 29.4 BP 160/80 H Blood Pressure Location Rt brachial Position Sitting Pulse 79 Pulse Source Pulse Oximeter Pulse Oximetry (%) 90 L Oxygen Delivery Method Room Air Intake Visit Reasons: Proteinuria/CONF Sample Finisher Required: Yes Sample Finisher Name: Caren [id number] Accompanied by: Self / Same As Patient Allergies adhesive tape [ADHESIVE TAPE] Allergy (Intermediate, Verified 03/02/24 08:17) RASH pioglitazone [From ACTOS] Allergy (Intermediate, Verified 03/02/24 08:17) facial edema,rash latex Allergy (Mild, Verified 03/02/24 08:17) Rash Medication List - Last Reconciled 03/09/24 by Kwasi Hollis MD acetaminophen (Tylenol Extra Strength) 500 mg PO Q6H PRN acetone (urine) test (Ketone Urine Test strips) As directed glucose over 300, illness, nausea, vomiting t.i.d. albuterol sulfate 90 mcg/actuation 1 inh inhalation QID PRN albuterol sulfate 2.5 mg (3 mL) inhalation QID PRN 25 days artifi.tears(hypromellose)(PF) 0.3% 1 drp ophthalmic-Right Q4-6H PRN ascorbate calcium (vitamin C) 500 mg PO DAILY blood pressure kit-extra large As directed blood sugar diagnostic (FreeStyle Lite Strips) TEST 4 TIMES DAILY blood-glucose meter (FreeStyle Lite Meter kit) TEST 4 TIMES DAILY buspirone 15 mg PO TID canagliflozin (Invokana) 300 mg PO DAILY cane As directed cetirizine (Zyrtec) 10 mg PO DAILY 90 days cholecalciferol (vitamin D3) 50 mcg PO DAILY citalopram 10 mg PO DAILY cyanocobalamin (vitamin B-12) 1,000 mcg IM Q4W 4 weeks cyclobenzaprine 10 mg PO TID PRN diclofenac sodium 75 mg PO BID docusate sodium 100 mg PO DAILY ergocalciferol (vitamin D2) 1,250 mcg PO QWEEK 90 days escitalopram oxalate 5 mg PO DAILY ferrous sulfate 325 mg PO DAILY fluticasone propionate 50 mcg/actuation (Flonase Allergy Relief) 1 spray intranasal DAILY 30 days furosemide 20 mg PO BID 90 days gabapentin 100 mg PO TID 30 days glucagon 3 mg/actuation (Baqsimi) 3 mg intranasal .prn PRN 30 days MDD 6 mg [glucose tablets 15 grams PO .prn PRN 30 days MDD 12 tablets] hydrocortisone 2.5% (Proctozone-HC) 1 appl VA BID PRN hydrocortisone-pramoxine 1-1 % (Proctofoam HC) 1 appl VA DAILY hydroxyzine HCl 1 - 2 tabs PO QID ibuprofen 400 mg PO TID PRN insulin lispro (Humalog KwikPen U-200 Insulin) up to 375 units per day via pump subcutaneously use as directed; 30 days insulin regular hum U-500 conc (Humulin R U-500 (Concentrated) Insulin) Infuse up to 500 units per day via insulin pump subcutaneously; insulin syringe-needle U-100 (Advocate Syringes) Use 1 needle once a month lidocaine 5% (Lidoderm) 1 patch topical DAILY PRN MDD remove after 12 hours lisinopril 10 mg PO DAILY methylcellulose (laxative) (Citrucel Sugar Free oral powder) 2 grams PO DAILY PRN montelukast 10 mg PO DAILY 90 days nebulizers (AeroEclipse II Nebulizer) As directed nortriptyline 10 mg PO BEDTIME ondansetron 4 mg PO Q6-8H PRN oxycodone-acetaminophen 5-325 mg 1 tab PO Q8H PRN 30 days pantoprazole 40 mg PO DAILY 30 days pen needle, diabetic (BD Shy 2nd Gen Pen Needle) As directed qid prn pump failure pen needle, diabetic (Comfort EZ Pen [place]) As directed injection twice a day prochlorperazine maleate 10 mg PO TID PRN rosuvastatin 20 mg PO DAILY 90 days Shower Chair As directed simethicone (Gas Relief Extra Strength) 125 mg PO TID-QID PRN [skin tac apply to skin at pump site and sensor site after cleansing with alcohol.Insert pump cannula/sensor after skin tac has allowed to dry. Use on pump every three days, every 10 at sensor site.] sodium,potassium,mag sulfates 17.5-3.13-1.6 gram (Suprep Bowel Prep Kit) DILUTE; drink full amount early evening before AND next morning at least 2 hr before procedure; follow w 960 mL water PO syringe with needle ([employer] Luer Slip Syringe-Needle) For vitamin B12 injection syringe with needle, safety (BD Safety-Jone Detachable Needle) Use 1 syringe once a month thiamine HCl (vitamin B1) 1 tab PO DAILY tirzepatide (Mounjaro) 10 mg (0.5 mL) subcut QWEEK tizanidine 4 mg PO Q8H PRN 30 days valacyclovir (Valtrex) 1,000 mg PO TID vitamin A 1 cap PO DAILY HPI Comments Details: 48-year-old man with a history of diabetes mellitus and hypertension referred for hyponatremia. Upon reviewing the labs it appears that she has had chronic hyponatremia for at least 5 or 6 years. Serum sodium has been in the low 130s. The lowest recorded reading was 129 back in 2019. She is on low-dose of citalopram. She admits to drinking more than 10 bottles of water a day. She has undergone gastric bypass surgery and since then she has been drinking plenty of water. She denies any alcohol intake. At present she has no history of headache nausea or vomiting. No chest pain No polyuria polydipsia. No diarrhea constipation. No edema. No palpitations no rash no fever. [facility] Medical History Cellulitis Uncontrolled type 2 diabetes mellitus with hyperglycemia Physical exam Cellulitis of toe of right foot Hospital discharge follow-up Goiter Onychomycosis Vitamin D deficiency T2DM (type 2 diabetes mellitus) Left ankle pain B12 deficiency Left leg pain Acid reflux History of colonic polyps Chronic fatigue Carpal tunnel syndrome Daytime hypersomnia Autoimmune thyroiditis Fibromyalgia Morbid obesity Spondylosis, thoracic, 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 spine without myelopathy History of ulcer disease Sessile colonic polyp Obesity Tracee's disease [facility] (current) use of insulin Diabetic nephropathy associated with type 2 diabetes mellitus Diabetic retinopathy associated with type 2 diabetes mellitus Diabetic polyneuropathy associated with type 2 diabetes mellitus Iron (Fe) deficiency anemia History of Graves' disease Lumbar degenerative disc disease Back pain Anxiety and depression GERD (gastroesophageal reflux disease) Asthma Hyperlipidemia Hypertension Diabetes mellitus Polyarthralgia Surgical History History of carpal tunnel surgery of right wrist H/O endoscopy History of cataract extraction History of lumpectomy of left breast History of carpal tunnel surgery of left wrist Hx of section Hx laparoscopic cholecystectomy Hx of esophagogastroduodenoscopy Hx of colonoscopy H/O gastric bypass Family History Father Diabetes Hypertension Mother Diabetes Hypertension Maternal Grandmother Colon cancer Paternal Aunt Cancer of ear Social History Household Members: Family Housing: House Alcohol intake: never Patient Tobacco Use Status: Former Tobacco user Tobacco use type: Cigarette Cigarette Packs Per Day: 1 Cigarettes Per Day: 20.0 Years Smoked: 20 e-Cigarette/Vaping Use: Never Used Second Hand Smoke Exposure: No service: No Current occupational status: disabled Current occupation: right hand dominant Cognitive needs: No Hearing needs: No Vision needs: Yes Female Reproductive History Menstrual Age of Menarche: 14 Physical Exam Vital Signs: Last Vital Signs Pulse 79 03/09/24 13:49 BP 160/80 H 03/09/24 13:49 Pulse Ox 90 L 03/09/24 13:49 Oxygen Delivery Method Room Air 03/09/24 13:49 BMI result Body Mass Index 29.4 Comfortable Neck supple no JVD. Lungs entry equal no rales. Heart S1-S2 heard no gallop or rub. Abdomen soft nontender. Neuro alert awake oriented. No asterixis. Extremities no edema. Results Reviewed Nephrology Results: Hgb 11.2 g/dl (12.0-16.0) L 03/08/24 WBC 7.2 X10*3/uL (4.8-10.8) 03/08/24 Plt Count 310 X10*3/uL (160-400) 03/08/24 Sodium 138 mmol/L (135-145) 03/08/24 Potassium 4.3 mmol/L (3.3-5.1) 03/08/24 Chloride 104 mmol/L (96-108) 03/08/24 Carbon Dioxide 28 mmol/L (22-29) 03/08/24 BUN 10 mg/dL (9-16) 03/08/24 Creatinine 0.67 mg/dL (0.5-1.4) 03/08/24 Calcium 9.2 mg/dL (8.4-10.2) 03/08/24 Urine Protein Trace mg/dL (Neg-Trace) 03/08/24 Urine Creatinine 127.48 mg/dL 03/08/24 Assessment & Plan Assessment & Plan (1) Hyponatremia: Code(s): E87.1 - Hypo-osmolality and hyponatremia Category: Medical (2) Microalbuminuria: Code(s): R80.9 - Proteinuria, unspecified Category: Medical Plan Anitha has chronic asymptomatic mild hyponatremia. Clinically she appears euvolemic. Serum sodium has normalized. Hypertension Blood pressure is suboptimal Increase lisinopril from 10 mg up to 20 mg a day. Microalbuminuria in the setting of diabetes mellitus. Urine protein creatinine ratio is decreased. Continue DORITA inhibition Orders: Orders Creatinine Urine 4 Months R80.9 - Proteinuria, unspecified Total Protein Urine Random 4 Months R80.9 - Proteinuria, unspecified Basic Metabolic Panel 4 Months R80.9 - Proteinuria, unspecified Medications: Changed From lisinopril 10 mg PO DAILY 90 tabs 4RF To lisinopril 20 mg PO DAILY 90 tabs 4RF Discontinued sodium,potassium,mag sulfates 17.5-3.13-1.6 gram (Suprep Bowel Prep Kit) Discontinued Reason: No Longer Medically Relevant DILUTE; drink full amount early evening before AND next morning at least 2 hr before procedure; follow w 960 mL water PO 354 mL 0RF Coding Level of Care Code Est Pt Level 4 (73615) Diagnoses Hyponatremia E87.1 Microalbuminuria R80.9
== END 2024-03-09 14:04 | disposition home or self-care (01) ==
PROVIDERS: PCP Internal Medicine; Visit Provider Internal Medicine Hypertension Specialist
DX: E87.1 Hypo-osmolality and hyponatremia (principal); R80.9 Proteinuria, unspecified
CPT/HCPCS: 99214

== ENCOUNTER → 2024-03-12 20:30 | Outpatient (REF) | payer OTHER, SELFPAY | LOC: HO.SL 20:30 | PROVIDERS: PCP Internal Medicine; Visit Provider Nurse Practitioner Family | DX: R40.0 Somnolence (principal); G25.81 Restless legs syndrome; G47.9 Sleep disorder, unspecified; G47.19 Other hypersomnia | CPT/HCPCS: 95810 ==

== ENCOUNTER 2024-03-23 08:54 | Outpatient (AMB) | payer OTHER, SELFPAY ==
--- NOTE | 2024-03-23 10:12 | MHC.AMDMED ---
Intake Intake Visit Reasons: T2DM Lpn Rn Hospice Required: Yes Lpn Rn Hospice Language: Financial Planning Consultant Name: [id number] Information Interpreted: non-clinical & clinical Accompanied by: Self / Same As Patient Allergies adhesive tape [ADHESIVE TAPE] Allergy (Intermediate, Verified 03/02/24 08:17) RASH pioglitazone [From ACTOS] Allergy (Intermediate, Verified 03/02/24 08:17) facial edema,rash latex Allergy (Mild, Verified 03/02/24 08:17) Rash HPI Comprehensive Diabetes Asmnt Most Recent Diabetes Results: Hemoglobin A1c 8.3 % 05/14/18 Microalb/Creat Ratio 25.1 ug/mg cr (<30) 03/08/24 Cholesterol 162 mg/dL (<200) 03/08/24 HDL Cholesterol 68 mg/dL (>40) 03/08/24 Triglycerides 129 mg/dL (<150) 03/08/24 Creatinine 0.67 mg/dL (0.5-1.4) 03/08/24 Blood Urea Nitrogen 10 mg/dL (9-16) 03/08/24 Sodium 138 mmol/L (135-145) 03/08/24 Potassium 4.3 mmol/L (3.3-5.1) 03/08/24 Chloride 104 mmol/L (96-108) 03/08/24 Carbon Dioxide 28 mmol/L (22-29) 03/08/24 Calcium 9.2 mg/dL (8.4-10.2) 03/08/24 AST 23 U/L (5-31) 03/08/24 ALT 25 U/L (0-31) 03/08/24 Total Protein 7.1 g/dL (6.5-8.0) 03/08/24 Albumin 3.9 g/dL (3.5-5.0) 03/08/24 [facility] Medical History Cellulitis Uncontrolled type 2 diabetes mellitus with hyperglycemia Physical exam Cellulitis of toe of right foot Hospital discharge follow-up Goiter Onychomycosis Vitamin D deficiency T2DM (type 2 diabetes mellitus) Left ankle pain B12 deficiency Left leg pain Acid reflux History of colonic polyps Chronic fatigue Carpal tunnel syndrome Daytime hypersomnia Autoimmune thyroiditis Fibromyalgia Morbid obesity Spondylosis, thoracic, 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 spine without myelopathy History of ulcer disease Sessile colonic polyp Obesity 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 Diabetic nephropathy associated with type 2 diabetes mellitus Diabetic retinopathy associated with type 2 diabetes mellitus Diabetic polyneuropathy associated with type 2 diabetes mellitus Iron (Fe) deficiency anemia History of Graves' disease Lumbar degenerative disc disease Back pain Anxiety and depression GERD (gastroesophageal reflux disease) Asthma Hyperlipidemia Hypertension Diabetes mellitus Polyarthralgia Surgical History History of carpal tunnel surgery of right wrist H/O endoscopy History of cataract extraction History of lumpectomy of left breast History of carpal tunnel surgery of left wrist Hx of section Hx laparoscopic cholecystectomy Hx of esophagogastroduodenoscopy Hx of colonoscopy H/O gastric bypass Family History Father Diabetes Hypertension Mother Diabetes Hypertension Maternal Grandmother Colon cancer Paternal Aunt Cancer of ear Social History Household Members: Family Housing: House Alcohol intake: never Patient Tobacco Use Status: Former Tobacco user Tobacco use type: Cigarette Cigarette Packs Per Day: 1 Cigarettes Per Day: 20.0 Years Smoked: 20 e-Cigarette/Vaping Use: Never Used Second Hand Smoke Exposure: No service: No Current occupational status: disabled Current occupation: right hand dominant Cognitive needs: No Hearing needs: No Vision needs: Yes Female Reproductive History Menstrual Age of Menarche: 14 Assessment & Plan Assessment & Plan (1) Diabetic polyneuropathy associated with type 2 diabetes mellitus: Code(s): E11.42 - Type 2 diabetes mellitus with diabetic polyneuropathy Plan: Patient presents for pump training for T slim with control IQ, and Dexcom G7 insulin pump therapy with Humalog U200 The following topics were reviewed today: Effects infection have on glucose levels - Sensor setting (if applicable) ?? High Alert: 180 mg/dl ??? Low Alert: 80 mg/dl Average glucose for the past 2 weeks 279 mg/dL Above target 97% At target 3% Below target 0% Tandem ID: [email or web address] password: [email or web address] Patient reports the open area on abdomen, where she had site infection has still not fully healed. Patient last seen by equipment specialist 3 weeks ago, does not have another upcoming appointment. Suggested to patient if she does not see improvement in infected area she should contact wound care for an additional appointment. Patient also reports that she has been changing insulin delivery set every 48 hours to meet insulin demand. Request sent to increase prescription for insulin pump supplies Patient also discussed increasing Mounjaro from 10 mg to 12.5 mg weekly, Request increase for Mounjaro 12.5 mg script At today's visit See adjustments below to pump settings Patient instructed to contact provider or educator if she begins to experience hypoglycemia. Safety information: Importance of a backup plan, for manual injections, proper prescriptions and emergency supplies ketone strips, and rules for testing for ketones Setting verified by CDCES, Pump Settings:with U200 insulin Basal rate(s) (units/hour) : 12 AM? to 5 AM? 3.3 units / hr New 12 AM? to 5 AM? 4.2 units / hr Bolus setting Insulin Carbohydrate Ratio (s) 12 AM? to 5 AM?1:3 New 5 AM? to 12 AM? 1:2.5 Correction Factor / Sensitivity Factor 12 AM? to 5 AM?1:9 New 5 AM to 12 AM 1:6 Active Insulin Time:? 5 hours Coding Level of Care Code Est Pt Level 1 (89509) Diagnoses Diabetic polyneuropathy associated with type 2 diabetes mellitus E11.42
== END 2024-03-23 09:50 | disposition home or self-care (01) ==
PROVIDERS: PCP Internal Medicine; Visit Provider Registered Nurse Diabetes Educator
DX: E11.42 Type 2 diabetes mellitus with diabetic polyneuropathy (principal)

== ENCOUNTER → 2024-03-23 08:54 | Outpatient (BNVA) | payer OTHER, SELFPAY | PROVIDERS: PCP Internal Medicine; Visit Provider Registered Nurse Diabetes Educator | DX: E11.42 Type 2 diabetes mellitus with diabetic polyneuropathy (principal) | CPT/HCPCS: 99211 ==

== ENCOUNTER → 2024-03-24 09:17 | Outpatient (BNVA) | payer OTHER, SELFPAY | PROVIDERS: PCP Internal Medicine; Visit Provider Surgery | DX: L72.3 Sebaceous cyst (principal) | CPT/HCPCS: 99212 ==

== ENCOUNTER 2024-04-22 08:18 | Outpatient (AMB) | payer OTHER, SELFPAY ==
--- OUTSIDE RECORDS SUMMARY | 2024-04-22 08:41 | XMS_ITS | Clinical Summary ---
Author Organization [facility] Facility Address [address] [place] [id number] Care Team Providers Care Block Piler Name Role Phone Analilia Chaidez MD Primary Care Provider [phone] Allergies Active Allergy Reactions Criticality Noted Date Comments Pioglitazone Other (see comments) 04/21/2020 Medications albuterol (2.5 MG/3ML) 0.083% nebulizer solution Active albuterol HFA (ProAir HFA) 108 (90 Base) MCG/ACT inhaler Acti ve ascorbic acid (VITAMIN C) 500 MG CR capsule Active aspirin (Lucy Aspirin EC Low Dose) 81 MG EC tablet Take 1 tablet by mouth 1 (one) time each day Active Calcium Carbonate-Vitam in D 600-200 MG-UNIT capsule Take 1 capsule by mouth 1 (one) time each day Active Canagliflozin (Invokana) 300 MG tablet Take 1 tablet by mouth 1 (one) time each day Active Cetirizine HCl (ZyrTEC ALLERGY) 10 MG capsule Take 1 capsule by mouth 1 (one) time each day Active Cholecalciferol 50 MCG (2000 UT) capsule Take 1 capsule by mouth 1 (one) time each day Active codeine 15 MG tablet Take 1 tablet by mouth 2 (two) times a day Active furosemide (LASIX) 20 MG tablet Take 1 tablet by mouth 1 (one) time each day Active insulin regular (HumuLIN R) 100 UNIT/ML injection Active lisinopril (PRINIVIL,ZESTR IL) 2.5 MG tablet Take 1 tablet by mouth 1 (one) time each day Active metFORMIN (GLUCOPHAGE) 500 MG tablet Take 1 tablet by mouth 2 (two) times a day Active nortriptyline (PAMELOR) 10 MG capsule Take 2 capsules by mouth at bed time Active pravastatin (PRAVACHOL) 40 MG tablet Take 1 tablet by mouth 1 (one) time each day Active sucralfate (Carafate) 1 GM/10ML suspension Active topiramate (TOPAMAX) 50 MG tablet Comments: Filled Date: Mar 17 2015 12:00AM Patient Notes: 1 TABLET BY MOUTH EVERY NIGHT AND 1/2 TAB DAILY IN MORNING Duration: 30 12/06/2014 Active traZODone (DESYREL) 50 MG tablet Take 1 tablet by mouth 1 (one) time each day Active Active Problems Problem Noted Date Diagnosed Date Type 2 diabetes mellitus 12/17/2021 Morbid obesity 12/17/2021 Hypertensive heart disease without congestive he art failure 04/21/2020 Hypo-osmolality and or hyponatremia 04/21/2020 Proteinuria 04/21/2020 Renal disorder due to type 2 diabetes mellitus 0 04/21/2020 Family History Medical History Relation Comments Diabetes Father Hypertension Father Diabetes Mother Hypertension Mother Relation Status Comments Father Alive Mother Alive Social History Tobacco Use Types Packs/Day Years Used Date Smoking Tobacco: Former Cigarettes 0 02/24/1995 - 02/24/2013 Alcohol Use Standard Drinks/Week Comments No 0 (1 standard drink = 0.6 oz pur e alcohol) Comments Unknown Sex and Gender Information Value Date Recorded Sex Assigned at Not on file Legal Sex Female 4:43 PM EST Gender Identity Not on file Sexual Orientation Not on file Last Filed Vital Signs Vital Sign Reading Time Taken Comments Blood Pressure 116/64 08/06/2018 12:00 PM EDT Pulse 78 08/06/2018 12:00 PM EDT Temperature - - Respiratory Rate - - Oxygen Saturation 99% 08/06/2018 12:00 PM EDT Inhaled Oxygen Concentration - - Weight 113 kg (250 lb) 08/06/2018 12:00 PM EDT Height 177.8 cm (5' 10 ) 08/06/2018 12:00 PM EDT Body Mass Index 35.87 08/06/2018 12:00 PM EDT Plan of Treatment Health Maintenance Due Date Last Done Comments Hepatitis B Vaccine (1 of 3 - 19+ 3-dose series) 1995 Diabetes: Hemoglobin A1C 03/27/2020 Diabetes: Ophthalmology Exam 03/27/2020 Diabetes: Pedal Pulse Checked 03/27/2020 Diabetes: Sensory Foot Exam 03/27/2020 Diabetes: Visual Foot Exam 03/27/2020 Influenza Vaccine (#1) 2023 Pneumococcal Vaccine: Pediat rics (0 to 5 Years) and At-Risk Patients (6 to 64 Years) Aged Out No longer eligible b ased on patient's age to complete this topic Insurance MEDICAID MEDICAID Care Teams Block Piler Relationship Specialty Start Date End Date Analilia Chaidez MD [address] [place], [place] PCP - General 03/06/20
--- NOTE | 2024-04-22 08:51 | MHC.AMDMED ---
Intake Intake Visit Reasons: 30 min Computer Network And Systems Engineer Required: Yes Computer Network And Systems Engineer Language: Tin Worker Name: riley [facility] Accompanied by: Self / Same As Patient Allergies adhesive tape [ADHESIVE TAPE] Allergy (Intermediate, Verified 03/24/24 09:28) RASH pioglitazone [From ACTOS] Allergy (Intermediate, Verified 03/24/24 09:28) facial edema,rash latex Allergy (Mild, Verified 03/24/24 09:28) Rash HPI Comprehensive Diabetes Asmnt Most Recent Diabetes Results: Hemoglobin A1c 8.3 % 05/14/18 Microalb/Creat Ratio 25.1 ug/mg cr (<30) 03/08/24 Cholesterol 162 mg/dL (<200) 03/08/24 HDL Cholesterol 68 mg/dL (>40) 03/08/24 Triglycerides 129 mg/dL (<150) 03/08/24 Creatinine 0.67 mg/dL (0.5-1.4) 03/08/24 Blood Urea Nitrogen 10 mg/dL (9-16) 03/08/24 Sodium 138 mmol/L (135-145) 03/08/24 Potassium 4.3 mmol/L (3.3-5.1) 03/08/24 Chloride 104 mmol/L (96-108) 03/08/24 Carbon Dioxide 28 mmol/L (22-29) 03/08/24 Calcium 9.2 mg/dL (8.4-10.2) 03/08/24 AST 23 U/L (5-31) 03/08/24 ALT 25 U/L (0-31) 03/08/24 Total Protein 7.1 g/dL (6.5-8.0) 03/08/24 Albumin 3.9 g/dL (3.5-5.0) 03/08/24 [facility] Medical History (Updated 04/16/24 @ 07:18 by Rand Campos NP) Peripheral vascular disease of lower extremity Cellulitis Uncontrolled type 2 diabetes mellitus with hyperglycemia Physical exam Cellulitis of toe of right foot Hospital discharge follow-up Goiter Onychomycosis Vitamin D deficiency T2DM (type 2 diabetes mellitus) Left ankle pain B12 deficiency Left leg pain Acid reflux History of colonic polyps Chronic fatigue Carpal tunnel syndrome Daytime hypersomnia Autoimmune thyroiditis Fibromyalgia Morbid obesity Spondylosis, thoracic, 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 spine without myelopathy History of ulcer disease Sessile colonic polyp Obesity Tracee's disease [facility] (current) use of insulin Diabetic nephropathy associated with type 2 diabetes mellitus Diabetic retinopathy associated with type 2 diabetes mellitus Diabetic polyneuropathy associated with type 2 diabetes mellitus Iron (Fe) deficiency anemia History of Graves' disease Lumbar degenerative disc disease Back pain Anxiety and depression GERD (gastroesophageal reflux disease) Asthma Hyperlipidemia Hypertension Diabetes mellitus Polyarthralgia Surgical History (Updated 03/24/24 @ 09:39 by Tyson Aviles MD) History of carpal tunnel surgery of right wrist H/O endoscopy History of cataract extraction History of lumpectomy of left breast History of carpal tunnel surgery of left wrist Hx of section Hx laparoscopic cholecystectomy Hx of esophagogastroduodenoscopy Hx of colonoscopy H/O gastric bypass Family History Father Diabetes Hypertension Mother Diabetes Hypertension Maternal Grandmother Colon cancer Paternal Aunt Cancer of ear Social History Household Members: Family Housing: House Alcohol intake: never Patient Tobacco Use Status: Former Tobacco user Tobacco use type: Cigarette Cigarette Packs Per Day: 1 Cigarettes Per Day: 20.0 Years Smoked: 20 e-Cigarette/Vaping Use: Never Used Second Hand Smoke Exposure: No service: No Current occupational status: disabled Current occupation: right hand dominant Cognitive needs: No Hearing needs: No Vision needs: Yes Female Reproductive History Menstrual Age of Menarche: 14 Assessment & Plan Assessment & Plan (1) Diabetic polyneuropathy associated with type 2 diabetes mellitus: Code(s): E11.42 - Type 2 diabetes mellitus with diabetic polyneuropathy Plan Patient presents for pump training for T abdifatah with control IQ, and Dexcom G7 insulin pump therapy with Humalog U200 The following topics were reviewed today: Adding daily basal insulin dose Bolusing prior to meals - Sensor setting (if applicable) ?? High Alert: 180 mg/dl ??? Low Alert: 80 mg/dl Average glucose for the past 2 weeks 286 mg/dL Above target 93% At target 7% Below target 0% Tandem ID: [email or web address]: [email or web address] Patient is waiting for surgery on site of infusion set infection. Patient's glucose continues to run well above target At today's visit we discussed adding basal insulin to augment insulin pump therapy, instead of changing Humalog U200 back to Humulin U500 Requested updated prescription for Humalog U200, as patient reports she is running low on insulin by the end of the month At today's visit See adjustments below to pump settings Patient instructed to contact provider or educator if she begins to experience hypoglycemia. Safety information: Importance of a backup plan, for manual injections, proper prescriptions and emergency supplies ketone strips, and rules for testing for ketones Setting verified by CDCES, Pump Settings:with U200 insulin Basal rate(s) (units/hour) : 12 AM? to 5 AM? 3.3 units / hr New 12 AM? to 5 AM? 4 units / hr 12 AM? to 5 AM? 4.2 units / hr Bolus setting Insulin Carbohydrate Ratio (s) 12 AM? to 5 AM?1:3 New 5 AM? to 9PM? 1:2 New 9PM to 12 AM 1:2.5 Correction Factor / Sensitivity Factor 12 AM? to 5 AM?1:9 5 AM to 12 AM 1:6 New 5 AM to 12 AM 1:5 Active Insulin Time:? 5 hours Medications: Discontinued insulin regular hum U-500 conc (Humulin R U-500 (Concentrated) Insulin) Discontinued Reason: Doctor's Order Infuse up to 500 units per day via insulin pump subcutaneously; 80 mL 5RF Patient Instructions: Reschedule appointment with RESEARCH AND DEVELOPMENT SCIENTIST Follow-up with safe deposit clerk in 1 month after RESEARCH AND DEVELOPMENT SCIENTIST appointment Coding Level of Care Code Est Pt Level 1 (29518) Diagnoses Diabetic polyneuropathy associated with type 2 diabetes mellitus E11.42
== END 2024-04-22 08:55 | disposition home or self-care (01) ==
PROVIDERS: PCP Internal Medicine; Visit Provider Registered Nurse Diabetes Educator
DX: E11.42 Type 2 diabetes mellitus with diabetic polyneuropathy (principal)

== ENCOUNTER → 2024-04-22 08:18 | Outpatient (BNVA) | payer OTHER, SELFPAY | PROVIDERS: PCP Internal Medicine; Visit Provider Registered Nurse Diabetes Educator | DX: Z46.81 Encounter for fitting and adjustment of insulin pump (principal); E11.42 Type 2 diabetes mellitus with diabetic polyneuropathy; Z79.4 Long term (current) use of insulin | CPT/HCPCS: 99211 ==

== ENCOUNTER 2024-04-28 08:25 | Outpatient (AMB) | payer OTHER, SELFPAY ==
--- NOTE | 2024-04-28 07:05 | MHC.OFFVIS ---
Vital Signs 04/28/24 08:26 Height 5 ft 9 in Weight 191 lb 12.835 oz BMI 28.3 BP 120/78 Blood Pressure Location Rt brachial Position Sitting Pulse 82 Pulse Source Pulse Oximeter Oxygen Delivery Method Room Air Intake Visit Reasons: T2DM Intake Note: Patient present today to follow up on Type 2 Diabetes Mellitus/Insulin Pump. Last Diabetic Eye exam: 12/2023 Last Podiatry Visit: Patient needs a new referral Most Recent HgA1C: 10.8% 03/02/2024 Random Glucose: 193 mg/dL, Today Safety Pin Assembling Machine Operator Required: Yes Safety Pin Assembling Machine Operator Language: Science Liaison Name: LASHONDA Jenkins Accompanied by: Self / Same As Patient Allergies adhesive tape [ADHESIVE TAPE] Allergy (Intermediate, Verified 04/28/24 08:27) RASH pioglitazone [From ACTOS] Allergy (Intermediate, Verified 04/28/24 08:27) facial edema,rash latex Allergy (Mild, Verified 04/28/24 08:27) Rash HPI Comments Details: 49 YO F with PMHx T2DM who is seen in F/U for the same. She has a history of prior bariatric surgery in June of 2015. She is on u200 insulin in an insulin pump along with Parvin. She previously was on U500 insulin and was struggling to achieve control with this. Her insulin was changed to U 200 which has a similar action of U 100 and more recently a once daily basal shot of Tresiba was added. This was not filled by pharmacy and I called the pharmacist today and they will be dispensing along with the ketone test strips. Hemoglobin A1c 04/28/2024 10.2 %. She had an abdominal wall infection at the site of her insulin pump at the end of 2023 and needs surgery in this area but is rakesh better glycemic can ting for surgical clearance re: Dexcom average glucose: 268 14 day continuous glucose monitor report reviewed Glucose Managment indicator unable to calculate % Days with CGM data 83 % TIme in ranges: Fifty-seven % very high (above 250) 32 % high ?(181-250) 11 % in range ?(70-180] 0 % low (69-55) 0 % ?very low (below 54) Interpretation [significant hyperglycemia postprandial and baseline numbers running above target ] She is on U 200 insulin Note doses of insulin are multiplied by 2 from pump report Total daily dose of insulin 313 plus 20 units of Tresiba Basal insulin 147 units 47% Bolus insulin 166 units 53% Bolus setting Insulin Carbohydrate Ratio (s) 12 AM? to 5 AM?1:3 5 AM? to 9PM? 1:2 9PM to 12 AM 1:2.5 Correction Factor / Sensitivity Factor 12 AM? to 5 AM?1:9 5 AM to 12 AM 1:5 Glucose target range 00:00 130 05:00 140 09:00 120 21:00 120 Active Insulin Time:? 5 hours changed to 3.5 hours Has retinopathy last eye exam 10/2023 Has neuropathy on gabapentin. Symptoms: Numbness and tingling no pain or cramping Has nephropathy on DORITA inhibitor 03/08/2024 eGFR>60 recently seen by Nephrology at [facility] for mild chronic hyponatremia and diabetic kidney disease 03/08/24 35.0 Has HLD on statin 03/08/2024 70 Has peripheral vascular disease status post stent 2023 Sees [facility] on an ongoing basis [facility] Medical History Peripheral vascular disease of lower extremity Cellulitis Uncontrolled type 2 diabetes mellitus with hyperglycemia Physical exam Cellulitis of toe of right foot Hospital discharge follow-up Goiter Onychomycosis Vitamin D deficiency T2DM (type 2 diabetes mellitus) Left ankle pain B12 deficiency Left leg pain Acid reflux History of colonic polyps Chronic fatigue Carpal tunnel syndrome Daytime hypersomnia Autoimmune thyroiditis Fibromyalgia Morbid obesity Spondylosis, thoracic, 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 spine without myelopathy History of ulcer disease Sessile colonic polyp Obesity Tracee's disease [facility] (current) use of insulin Diabetic nephropathy associated with type 2 diabetes mellitus Diabetic retinopathy associated with type 2 diabetes mellitus Diabetic polyneuropathy associated with type 2 diabetes mellitus Iron (Fe) deficiency anemia History of Graves' disease Lumbar degenerative disc disease Back pain Anxiety and depression GERD (gastroesophageal reflux disease) Asthma Hyperlipidemia Hypertension Diabetes mellitus Polyarthralgia Surgical History History of carpal tunnel surgery of right wrist H/O endoscopy History of cataract extraction History of lumpectomy of left breast History of carpal tunnel surgery of left wrist Hx of section Hx laparoscopic cholecystectomy Hx of esophagogastroduodenoscopy Hx of colonoscopy H/O gastric bypass Family History Father Diabetes Hypertension Mother Diabetes Hypertension Maternal Grandmother Colon cancer Paternal Aunt Cancer of ear Social History Household Members: Family Housing: House Alcohol intake: never Patient Tobacco Use Status: Former Tobacco user Tobacco use type: Cigarette Cigarette Packs Per Day: 1 Cigarettes Per Day: 20.0 Years Smoked: 20 e-Cigarette/Vaping Use: Never Used Second Hand Smoke Exposure: No service: No Current occupational status: disabled Current occupation: right hand dominant Cognitive needs: No Hearing needs: No Vision needs: Yes Female Reproductive History Menstrual Age of Menarche: 14 Physical Exam Vital Signs: Last Vital Signs Pulse 82 04/28/24 08:26 BP 120/78 04/28/24 08:26 Oxygen Delivery Method Room Air 04/28/24 08:26 BMI result Body Mass Index 28.3 Const Other: Absence of Cushingoid features. Absence of acromegalic features. Neck exam reveals nl size thyroid about 15 gms. No thyroid nodules palpable. Heart S1 S2, Reg R/R. No M/R G. Skin exam reveals absence of vitiligo or acanthosis nigricans. Bunion left foot. Visual exam of foot performed. No ulcerations or open lesions. No inter digit maceration or fissuring. No onychomycosis, no callouses. Sensation intact to monofilament exam. Vibratory sensation is normal with 128 Hz tuning fork. Office Procedures Glucose Monitoring Details Details: See HPI 67337 - Glucose monitoring, continuous-physician I&R Procedure code (CPT) selection complete Results Reviewed Results Reviewed: Laboratory Last Values Glucose (Clinic) 193 mg/dL (60-115) H 04/28/24 08:37 Assessment & Plan Assessment & Plan (1) T2DM (type 2 diabetes mellitus): Comment: on an insulin pump with u200 insulin Code(s): E11.9 - Type 2 diabetes mellitus without complications Category: Medical Qualifiers: Diabetes mellitus complication status: with hyperglycemia Diabetes mellitus manager long term care insulin use: with manager long term care use Qualified Code(s): E11.65 - Type 2 diabetes mellitus with hyperglycemia; 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 Due to her extreme insulin resistance, a basal insulin shot Tresiba was added once daily. Pharmacy did not fill this and I contacted them today along with need for ketone test strips both of which we will be filled. Active insulin time and pump was changed from 5 hours to 3.5. She is entering carbs correct. We will escalate doses of Tresiba weekly until numbers in better control. She has severe insulin resistance and we will continue with SGLT-2 inhibitor and Mounjaro. Patient is aware that should she come off the insulin pump or any calculations that she makes on an insulin quick pen would give her twice see him on of insulin as this is U 200. She is due to have surgery at the site of an old pump infection. The patient had an opportunity to ask questions regarding treatment plan. The patient expressed understanding and agreement with the above treatment plan. The patient is aware they should contact our office by phone for worsening glucose readings or for any low blood sugars which may warrant a change in diabetes medication. Compliance is encouraged with medications and any followup testing/consults which may have been ordered. 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 50 ea 1RF E11.65 - Type 2 diabetes mellitus with hyperglycemia pen needle, diabetic (Comfort EZ Pen [place]) As directed once daily, prn pump failure can increase to qid 150 ea 4RF Patient Instructions: Take 15 carb carbohydrate grams to treat a low sugar (3-4 glucose tablets, half a glass of juice or 15 carbohydrate grams of soft candy such as gummie snacks). Recheck your sugar in 15 minutes and re-treat again with 15 carbohydrate grams if low or still with symptoms. Do not drive a car or operate machinery if you do not know what your blood sugar is, if it is low or in excess of 300. Symptoms of DKA (diabetic ketoacidosis): early: frequent urination, dry mouth, fatigue, feeling ill, severe symptoms: ketones in the urine, abdominal pain, nausea, vomiting and weakness. It is important to hydrate with sugar free liquids every 15-30 minutes and bring the sugars down to normal levels. If you are moderate or severe with ketones or unable to bring glucose to less than 200, go to the emergency room. Written handout in [place] given. Sick day management reviewed. Take 15 carb carbohydrate grams to treat a low sugar (3-4 glucose tablets, half a glass of juice or 15 carbohydrate grams of soft candy such as gummie snacks). Recheck your sugar in 15 minutes and re-treat again with 15 carbohydrate grams if low or still with symptoms. Do not drive a car or operate machinery if you do not know what your blood sugar is, if it is low or in excess of 300. Check your feet daily looking for any signs of infection, drainage, redness, ulceration and seek medical attention if this occurs. Break in shoes gradually and do not wear open-toed shoes or walk stocking footed or barefooted. Coding Level of Care Code Tele Est Pt Level 4 (44012) Complex EM visit Add On G2211 Diagnoses Type 2 diabetes mellitus with hyperglycemia, with long-term current use of insulin E11.65; Z79.4 Diabetes mellitus complication status: with hyperglycemia Diabetes mellitus [facility] insulin use: with [facility] use CPT Codes Details - CPT: 02453 - Glucose monitoring, continuous-physician I&R ([id number]) Time Spent (min) 45 Comment Reviewing labs/provider notes, glucose sensor/pump reports, face to face, chart doc
[2024-04-28 08:26] VITALS: BP 120/78; PULSE 82; BMI 28.3
[2024-04-28 08:42] LABS: Glucose, Whole Blood 193 mg/dL (60-115)
--- OUTSIDE RECORDS SUMMARY | 2024-04-28 08:56 | XMS_ITS | Clinical Summary ---
Author Organization [facility] Facility Address [address] [place] [id number] Care Team Providers Care Business And Financial Counsel Name Role Phone Analilia Chaidez MD Primary Care Provider [phone] Allergies Active Allergy Reactions Criticality Noted Date [...] this topic Insurance MEDICAID MEDICAID Care Teams Business And Financial Counsel Relationship Specialty Start Date End Date Analilia Chaidez MD [address] [place], [place] PCP - General 03/06/20
== END 2024-04-28 09:02 | disposition home or self-care (01) ==
PROVIDERS: PCP Internal Medicine; Visit Provider Nurse Practitioner Adult Health
DX: E11.65 Type 2 diabetes mellitus with hyperglycemia (principal); Z79.4 Long term (current) use of insulin
CPT/HCPCS: 95251; 99214; G2211

== ENCOUNTER → 2024-04-28 08:25 | Outpatient (BNVA) | payer OTHER, SELFPAY | PROVIDERS: PCP Internal Medicine; Visit Provider Nurse Practitioner Adult Health | DX: E11.65 Type 2 diabetes mellitus with hyperglycemia (principal); E11.42 Type 2 diabetes mellitus with diabetic polyneuropathy; Z96.41 Presence of insulin pump (external) (internal); Z79.4 Long term (current) use of insulin; Z79.899 Other long term (current) drug therapy | CPT/HCPCS: 82947; 99212 ==

== ENCOUNTER 2024-05-05 08:23 | Outpatient (AMB) | payer OTHER, SELFPAY ==
--- NOTE | 2024-05-04 16:10 | A.OFFVIS_ITS ---
Vital Signs 05/05/24 08:43 Height 5 ft 9 in Weight 191 lb 12.835 oz BMI 28.3 BP 122/72 Blood Pressure Location Rt brachial Position Sitting Pulse 60 Pulse Source Pulse Oximeter Intake Visit Reasons: T1DM Intake Note: Patient present today to follow up on Type 2 Diabetes Mellitus/Insulin Pump. Last Diabetic Eye exam: 12/2023 Last Podiatry Visit: Patient needs a new referral Most Recent HgA1C: 10.8% 03/02/2024 Random Glucose: 179 mg/dL, Today Quoter Required: Yes Quoter Language: Dinkey Skinner Name: LASHONDA Jenkins Accompanied by: Self / Same As Patient Allergies adhesive tape [ADHESIVE TAPE] Allergy (Intermediate, Verified 04/28/24 08:27) RASH pioglitazone [From ACTOS] Allergy (Intermediate, Verified 04/28/24 08:27) facial edema,rash latex Allergy (Mild, Verified 04/28/24 08:27) Rash Medication List - Last Reconciled 05/05/24 by Rand Campos NP acetaminophen (Tylenol Extra Strength) 500 mg PO Q6H PRN acetone (urine) test (Ketone Urine Test strips) As directed glucose over 300, illness, nausea, vomiting t.i.d. albuterol sulfate 90 mcg/actuation 1 inh inhalation QID PRN albuterol sulfate 2.5 mg (3 mL) inhalation QID PRN 25 days artifi.tears(hypromellose)(PF) 0.3% 1 drp ophthalmic-Right Q4-6H PRN ascorbate calcium (vitamin C) 500 mg PO DAILY blood pressure kit-extra large As directed blood sugar diagnostic (FreeStyle Lite Strips) TEST 4 TIMES DAILY blood-glucose meter (FreeStyle Lite Meter kit) TEST 4 TIMES DAILY buspirone 15 mg PO TID canagliflozin (Invokana) 300 mg PO DAILY cane As directed cetirizine (Zyrtec) 10 mg PO DAILY 90 days cholecalciferol (vitamin D3) 50 mcg PO DAILY 90 days citalopram 10 mg PO DAILY cyanocobalamin (vitamin B-12) 1,000 mcg IM Q4W 4 weeks cyclobenzaprine 10 mg PO TID PRN diclofenac sodium 75 mg PO BID docusate sodium 100 mg PO DAILY ergocalciferol (vitamin D2) 1,250 mcg PO QWEEK 90 days escitalopram oxalate 5 mg PO DAILY ferrous sulfate 325 mg PO DAILY fluticasone propionate 50 mcg/actuation (Flonase Allergy Relief) 1 spray intranasal DAILY 30 days furosemide 20 mg PO BID 90 days gabapentin 100 mg PO TID 30 days glucagon 3 mg/actuation (Baqsimi) 3 mg intranasal .prn PRN 30 days MDD 6 mg [glucose tablets 15 grams PO .prn PRN 30 days MDD 12 tablets] hydrocortisone 2.5% (Proctozone-HC) 1 appl RI BID PRN hydrocortisone-pramoxine 1-1 % (Proctofoam HC) 1 appl RI DAILY hydroxyzine HCl 1 - 2 tabs PO QID ibuprofen 400 mg PO TID PRN insulin degludec (Tresiba FlexTouch U-200 insulin) 20 units (0.1 mL) subcut DAILY 30 days insulin lispro (Humalog KwikPen U-200 Insulin) up to 375 units per day via pump subcutaneously use as directed; 30 days insulin syringe-needle U-100 (Advocate Syringes) Use 1 needle once a month lidocaine 5% (Lidoderm) 1 patch topical DAILY PRN MDD remove after 12 hours lisinopril 20 mg PO DAILY methylcellulose (laxative) (Citrucel Sugar Free oral powder) 2 grams PO DAILY PRN montelukast 10 mg PO DAILY 90 days nebulizers (AeroEclipse II Nebulizer) As directed nortriptyline 10 mg PO BEDTIME ondansetron 4 mg PO Q6-8H PRN oxycodone-acetaminophen 5-325 mg 1 tab PO Q8H PRN 30 days pantoprazole 40 mg PO DAILY 30 days pen needle, diabetic (BD Shy 2nd Gen Pen Needle) As directed qid prn pump failure pen needle, diabetic (Comfort EZ Pen Mason) As directed once daily, prn pump failure can increase to qid prochlorperazine maleate 10 mg PO TID PRN rosuvastatin 20 mg PO DAILY 90 days Shower Chair As directed simethicone (Gas Relief Extra Strength) 125 mg PO TID-QID PRN [skin tac apply to skin at pump site and sensor site after cleansing with alcohol.Insert pump cannula/sensor after skin tac has allowed to dry. Use on pump every three days, every 10 at sensor site.] syringe with needle (Moto Europa Luer Slip Syringe-Needle) For vitamin B12 injection syringe with needle, safety (BD Safety-Jone Detachable Needle) Use 1 syringe once a month thiamine HCl (vitamin B1) 1 tab PO DAILY tirzepatide (Mounjaro) 12.5 mg (0.5 mL) subcut QWEEK 28 days tizanidine 4 mg PO Q8H PRN 30 days valacyclovir (Valtrex) 1,000 mg PO TID vitamin A 1 cap PO DAILY HPI Comments Details: 49 YO F with PMHx T2DM who is seen in F/U for the same. She was last seen 04/28/24 and we are trying to see her weekly until her glucose readings improve. She has upcoming surgery on her abdomen at a site of a previous insulin pump insertion site. Prior to surgery her A1c needs to be improved. She has a history of prior bariatric surgery in June of 2015. She is on u200 insulin in an insulin pump along with Mounjaro. She previously was on U500 insulin and was struggling to achieve control with this. Her insulin was changed to U 200 which has a similar action of U 100 and more recently a once daily basal shot of Tresiba was added due to insulin resistance but not filled by pharmacy. With the time of her last visit I contacted pharmacy and they have filled this prescription along with ketone test strips. Hemoglobin A1c 04/28/2024 10.2 %. Previous sensor reading 2 weeks ago showed an average of 268 Active insulin time was reduced from 5 hours to 3.5 hours at her last visit to give her more prepandial insulin and more frequent high glucose corrrections. Dexcom average glucose: 259 14 day continuous glucose monitor report reviewed Glucose Managment indicator 9.5 % Days with CGM data 89 % TIme in ranges: 52 % very high (above 250) 38 % high ?(181-250) 10 % in range ?(70-180] 0 % low (69-55) 0 % ?very low (below 54) Total daily dose of insulin 366 (actual number of units of u200) Basal 50% bolus 50% Interpretation [ overall baseline is elevated and postprandial spikes despite entering carbs 30 minutes before the meal] She is on U 200 insulin Note doses of insulin are multiplied by 2 from pump report due to u200 Basal rate all settings increase to 6.0 units/hr Taking Tresiba 20 units per day injection increased to 30 units on 05/05/24 Bolus setting Insulin Carbohydrate Ratio (s) 12 AM? to 5 AM?1:3 5 AM? to 9PM? 1:2 new 1.5 9PM to 12 AM 1:2.5 new 2.0 Correction Factor / Sensitivity Factor 12 AM? to 5 AM?1:9 5 AM to 12 AM 1:5 Glucose target range 00:00 130 05:00 140 09:00 120 21:00 120 Active Insulin Time:? 3.5 hours Has retinopathy last eye exam 10/2023 Has neuropathy on gabapentin. Symptoms: Numbness and tingling no pain or cramping Has nephropathy on DORITA inhibitor 03/08/2024 eGFR>60 [place] [facility] [place] hyponatremia and diabetic kidney disease 03/08/24 35.0 Has HLD on statin 03/08/2024 70 Has peripheral vascular disease status post stent 2023 Sees [facility] on an ongoing basis [facility] Medical History (Updated 04/28/24 @ 09:10 by Rand Campos NP) Bunion of great toe Peripheral vascular disease of lower extremity Cellulitis Uncontrolled type 2 diabetes mellitus with hyperglycemia Physical exam Cellulitis of toe of right foot Hospital discharge follow-up Goiter Onychomycosis Vitamin D deficiency T2DM (type 2 diabetes mellitus) Left ankle pain B12 deficiency Left leg pain Acid reflux History of colonic polyps Chronic fatigue Carpal tunnel syndrome Daytime hypersomnia Autoimmune thyroiditis Fibromyalgia Morbid obesity Spondylosis, thoracic, 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 spine without myelopathy History of ulcer disease Sessile colonic polyp Obesity Tracee's disease 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 Diabetic nephropathy associated with type 2 diabetes mellitus Diabetic retinopathy associated with type 2 diabetes mellitus Diabetic polyneuropathy associated with type 2 diabetes mellitus Iron (Fe) deficiency anemia History of Graves' disease Lumbar degenerative disc disease Back pain Anxiety and depression GERD (gastroesophageal reflux disease) Asthma Hyperlipidemia Hypertension Diabetes mellitus Polyarthralgia Surgical History History of carpal tunnel surgery of right wrist H/O endoscopy History of cataract extraction History of lumpectomy of left breast History of carpal tunnel surgery of left wrist Hx of section Hx laparoscopic cholecystectomy Hx of esophagogastroduodenoscopy Hx of colonoscopy H/O gastric bypass Family History Father Diabetes Hypertension Mother Diabetes Hypertension Maternal Grandmother Colon cancer Paternal Aunt Cancer of ear Social History Household Members: Family Housing: House Alcohol intake: never Patient Tobacco Use Status: Former Tobacco user Tobacco use type: Cigarette Cigarette Packs Per Day: 1 Cigarettes Per Day: 20.0 Years Smoked: 20 e-Cigarette/Vaping Use: Never Used Second Hand Smoke Exposure: No service: No Current occupational status: disabled Current occupation: right hand dominant Cognitive needs: No Hearing needs: No Vision needs: Yes Female Reproductive History Menstrual Age of Menarche: 14 Physical Exam Vital Signs: Last Vital Signs Pulse 60 05/05/24 08:43 BP 122/72 05/05/24 08:43 BMI result Body Mass Index 28.3 Const Other: Absence of Cushingoid features. Absence of acromegalic features. No dyspnea Heart S1 S2, Reg R/R. No M/R G. Skin exam reveals absence of vitiligo or acanthosis nigricans. no edema Office Procedures Glucose Monitoring Details Details: see [facility] [address] - Glucose monitoring, continuous-physician I&R Procedure code (CPT) selection complete Results Reviewed Results Reviewed: Laboratory Last Values Glucose (Clinic) 179 mg/dL (60-115) H 05/05/24 08:46 Assessment & Plan Assessment & Plan (1) T2DM (type 2 diabetes mellitus): Comment: on an insulin pump with u200 insulin Code(s): E11.9 - Type 2 diabetes mellitus without complications Category: Medical Qualifiers: Diabetes mellitus complication status: with hyperglycemia Diabetes mellitus nursing home insulin use: with nursing home use Qualified Code(s): E11.65 - Type 2 diabetes mellitus with hyperglycemia; Z79.4 - 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 Plan: 47-year-old type 2 diabetic with nephropathy with preserved renal function, neuropathy and retinopathy on an insulin pump was recently converted to U 200 from U500 and had the addition of Tresiba once daily. She is also on Mounjaro and invokana She has a a dexamethasone sup-presion test which ruled out cushings She is being seen weekly for an intense. In order to get her numbers under better control for upcoming abdominal surgery. Pump settings changed: see hpi TRESIBA increased to 30 units continue mounjaro and invokana. I will look at her numbers via gloocko in one week. The patient had an opportunity to ask questions regarding treatment plan. The patient expressed understanding and agreement with the above treatment plan. The patient is aware they should contact our office by phone for worsening glucose readings or for any low blood sugars which may warrant a change in diabetes medication. Compliance is encouraged with medications and any followup testing/consults which may have been ordered. Orders: Orders AMB Glucose Monitoring Today E11.65 - Type 2 diabetes mellitus with hyperglycemia, Z79.4 - 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 Medications: Changed From insulin degludec (Tresiba FlexTouch U-200 insulin) 20 units (0.1 mL) subcut DAILY 30 days 3 mL 6RF To insulin degludec (Tresiba FlexTouch U-200 insulin) 30 units (0.15 mL) subcut DAILY 30 days 6 mL 6RF Patient Instructions: Coding Level of Care Code Est Pt Level 4 (61053) Complex EM visit Add On G2211 Diagnoses Type 2 diabetes mellitus with hyperglycemia, with long-term current use of insulin E11.65; Z79.4 Diabetes mellitus complication status: with hyperglycemia Diabetes mellitus terminal worker insulin use: with nursing home use CPT Codes Details - CPT: 25443 - Glucose monitoring, continuous-physician I&R ([id number]) Time Spent (min) 30 Comment face to face, chart reiew lab review doc
[2024-05-05 08:43] VITALS: BP 122/72; PULSE 60; BMI 28.3
--- OUTSIDE RECORDS SUMMARY | 2024-05-05 08:50 | XMS_ITS | Clinical Summary ---
Author Organization [facility] Facility Address [address] [place] [id number] Care Team Providers Care Hoop Riveting Machine Operator Name Role Phone Analilia Chaidez MD Primary Care Provider [phone] Allergies Active Allergy Reactions Criticality Noted Date [...] this topic Insurance MEDICAID MEDICAID Care Teams Hoop Riveting Machine Operator Relationship Specialty Start Date End Date Analilia Chaidez MD [address] [place], [place] PCP - General 03/06/20
[2024-05-05 08:55] LABS: Glucose, Whole Blood 179 mg/dL (60-115)
== END 2024-05-05 09:21 | disposition home or self-care (01) ==
LOC: HO.ENCR 08:24
PROVIDERS: PCP Internal Medicine; Visit Provider Nurse Practitioner Adult Health
DX: E11.65 Type 2 diabetes mellitus with hyperglycemia (principal); Z79.4 Long term (current) use of insulin
CPT/HCPCS: 95251; 99214; G2211

== ENCOUNTER → 2024-05-05 08:23 | Outpatient (BNVA) | payer OTHER, SELFPAY | PROVIDERS: PCP Internal Medicine; Visit Provider Nurse Practitioner Adult Health | DX: Z46.81 Encounter for fitting and adjustment of insulin pump (principal); E11.65 Type 2 diabetes mellitus with hyperglycemia; Z79.4 Long term (current) use of insulin | CPT/HCPCS: 82947; 99212 ==

== ENCOUNTER 2024-05-26 07:58 | Outpatient (REF) | payer OTHER, SELFPAY ==
--- OUTSIDE RECORDS SUMMARY | 2024-05-26 08:03 | XMS_ITS | Clinical Summary ---
Author Organization [facility] Facility Address [address] [place] [address] Care Team Providers Care Tester Electronic Scale Name Role Phone Analilia Chaidez MD Primary Care Provider [phone] Allergies Active Allergy Reactions Criticality Noted Date [...] this topic Insurance MEDICAID MEDICAID Care Teams Tester Electronic Scale Relationship Specialty Start Date End Date Analilia Chaidez MD [address] [place], [place] PCP - General 03/06/20
[2024-05-26 08:14] LABS: MANUAL DIFF FLAG NO
[2024-05-26 08:49] LABS: Basophils Percent Auto 0.6 % (0-2); Eosinophils Absolute Auto 0.1 X10*3/uL (0.0-0.4); Eosinophils Percent Auto 1.2 % (0-4); Hematocrit 35.8 % (37.0-47.0); Hemoglobin 11.4 g/dl (12.0-16.0); Imm Gran Abs Auto 0.03 X10*3/uL (0.00-0.03); Imm Gran Pct Auto 0.4 % (0.0-0.4); Lymphocytes Absolute Auto 1.8 X10*3/uL (1.2-4.9); Lymphocytes Percent Auto 26.1 % (20-40); Mean Corpuscular HGB Conc 31.8 g/dl (31.0-35.0); Mean Corpuscular Hemoglobin 24.4 pg (27.0-33.0); Mean Corpuscular Volume 76.7 fL (80.0-98.0); Mean Platelet Volume 9.9 fL (9.4-12.3); Monocytes Absolute Auto 0.5 X10*3/uL (0.1-1.2); Monocytes Percent Auto 7.5 % (2-11); Neutrophils Absolute Auto 4.4 x10*3/uL (2.0-8.3); Neutrophils Percent Auto 64.2 % (45-73); Platelet Count 315 X10*3/uL (160-400); Red Blood Count 4.67 X10*6/uL (4.20-5.50); Red Cell Distribution Width 15.3 % (11.0-16.0); White Blood Count 6.8 X10*3/uL (4.8-10.8)
[2024-05-26 09:24] LABS: Alanine Aminotransferase 38 U/L (0-31); Albumin Level 4.2 g/dL (3.5-5.0); Alkaline Phosphatase 113 U/L (39-117); Anion Gap 10 (12-20); Aspartate Amino Transferase 31 U/L (5-31); Bilirubin Total 0.4 mg/dL (0.0-1.0); Blood Urea Nitrogen 12 mg/dL (9-16); Calcium 9.2 mg/dL (8.4-10.2); Carbon Dioxide 25 mmol/L (22-29); Chloride 105 mmol/L (96-108); Cholesterol 174 mg/dL (<200); Estimated Glomerular Filt Rate > 60; Glucose Fasting 192 mg/dL (60-99); HDL Cholesterol 75 mg/dL (>40); Iron 26 mcg/dL (30-160); LDL Cholesterol Calculated 86 mg/dL (<100); Percent Iron Saturation 6 % (15-50); Potassium 4.3 mmol/L (3.3-5.1); Sodium 136 mmol/L (135-145); Total Iron Binding Capacity 455 mcg/dL (228-428); Total Protein 7.6 g/dL (6.5-8.0); Triglycerides 67 mg/dL (<150); Unsaturated Iron Binding 429 ug/dL
[2024-05-26 09:42] LABS: Vitamin D 25-OH Total 14.7 ng/mL (>30)
[2024-05-26 09:45] LABS: Folate 11.8 ng/mL (> or = 4.0); Vitamin B12 254 pg/mL (200-900)
[2024-05-26 10:03] LABS: Creatinine Urine 130.72 mg/dL; Microalbum/Creatinine Ratio Ur 69.6 ug/mg cr (<30)
== END 2024-05-26 07:59 | disposition home or self-care (01) ==
LOC: HO.LAB 07:58
PROVIDERS: PCP Internal Medicine; Visit Provider Nurse Practitioner Family
DX: I10 Essential (primary) hypertension (principal); R80.9 Proteinuria, unspecified; E53.8 Deficiency of other specified B group vitamins; D64.9 Anemia, unspecified; E55.9 Vitamin D deficiency, unspecified; E78.5 Hyperlipidemia, unspecified
CPT/HCPCS: 36415; 80053; 80061; 82043; 82306; 82570; 82607; 82746; 83540; 85025

== ENCOUNTER 2024-05-28 08:49 | Outpatient (AMB) | payer OTHER, SELFPAY ==
--- NOTE | 2024-05-28 07:16 | A.OFFVIS_ITS ---
Vital Signs 05/28/24 08:55 Height 5 ft 9 in Weight 189 lb 9.561 oz BMI 28.0 BP 136/76 Blood Pressure Location Rt brachial Position Sitting Pulse 69 Pulse Source Pulse Oximeter Intake Visit Reasons: DM Intake Note: Patient present today to follow up on Type 2 Diabetes Mellitus/Insulin Pump. Last Diabetic Eye exam: 12/2023 Last Podiatry Visit: Patient needs a new referral Most Recent HgA1C: DUE, 05/28/2024 Random Glucose: 147 mg/dL, Today Light Bulb Replacer Required: Yes Light Bulb Replacer Language: Property Insurance Claims Examiner Name: LASHONDA Jenkins/PAUL CHICAS Information Interpreted: non-clinical & clinical Accompanied by: Self / Same As Patient Allergies adhesive tape [ADHESIVE TAPE] Allergy (Intermediate, Verified 05/28/24 08:56) RASH pioglitazone [From ACTOS] Allergy (Intermediate, Verified 05/28/24 08:56) facial edema,rash latex Allergy (Mild, Verified 05/28/24 08:56) Rash HPI Comments Details: 49 YO F with PMHx T2DM who is seen in F/U for the same. She was last seen 05/04/24 and we are trying to see her weekly until her glucose readings improve. She has upcoming surgery on her abdomen at a site of a previous insulin pump insertion site. Prior to surgery her A1c needs to be improved. She has a history of prior bariatric surgery in June of 2015. She is on u200 insulin in an insulin pump along with Mounjaro. She previously was on U500 insulin and was struggling to achieve control with this. Her insulin was c hanged to U 200 which has a similar action of U 100 and more recently a once daily basal shot of Tresiba was added due to insulin resistance. She has an area in the lower abdomen that has had a small amount of drainage and feels more. This is at a site of an old pump site. Current medication: Tresiba 20 units Invokana 300 mg daily Mounjaro 12.5 mg weekly Hemoglobin A1c 04/28/2024 10.2 %. Previous sensor reading 2 weeks ago showed an average of 259 Dexcom average glucose: [253 ] 14 day continuous glucose monitor report reviewed Glucose Managment indicator 9.4 % Days with CGM data 94 % TIme in ranges: Forty-eight % very high (above 250) 39 % high ?(181-250) 13 % in range ?(70-180] 0 % low (69-55) 0 % ?very low (below 54) She had an episode of low sugar yesterday while walking in [employer]. No other low Interpretation [pump setting consistently over target range ] Note doses of insulin are multiplied by 2 from pump report due to u200 Total daily dose of insulin 177.9 x 2 equals 359 units Basal 88 x 2 equal 176 units Bolus 89.9 x 2 equals 179 Bolus setting Insulin Carbohydrate Ratio (s) 12 AM? to 5 AM?1:3 5 AM? to 9PM? 1:5 9PM to 12 AM 1:2.0 Correction Factor / Sensitivity Factor 12 AM? to 5 AM?1:9 5 AM to 12 AM 1:5 Glucose target range 00:00 130 05:00 140 09:00 120 21:00 120 Active Insulin Time:? 3.5 hours changed to 2.5 Has retinopathy last eye exam 10/2023 Has neuropathy on gabapentin. Symptoms: Numbness and tingling no pain or cramping Has nephropathy on DORITA inhibitor 03/08/2024 eGFR>60 recently seen by Nephrology at [facility] [place] for mild chronic hyponatremia and diabetic kidney disease 03/08/24 35.0 Has HLD on statin 03/08/2024 70 Has peripheral vascular disease status post stent 2023 Sees [facility] on an ongoing basis [facility] Medical History Bunion of great toe Peripheral vascular disease of lower extremity Cellulitis Uncontrolled type 2 diabetes mellitus with hyperglycemia Physical exam Cellulitis of toe of right foot Hospital discharge follow-up Goiter Onychomycosis Vitamin D deficiency T2DM (type 2 diabetes mellitus) Left ankle pain B12 deficiency Left leg pain Acid reflux History of colonic polyps Chronic fatigue Carpal tunnel syndrome Daytime hypersomnia Autoimmune thyroiditis Fibromyalgia Morbid obesity Spondylosis, thoracic, 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 spine without myelopathy History of ulcer disease Sessile colonic polyp Obesity 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's 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 Diabetic nephropathy associated with type 2 diabetes mellitus Diabetic retinopathy associated with type 2 diabetes mellitus Diabetic polyneuropathy associated with type 2 diabetes mellitus Iron (Fe) deficiency anemia History of Graves' disease Lumbar degenerative disc disease Back pain Anxiety and depression GERD (gastroesophageal reflux disease) Asthma Hyperlipidemia Hypertension Diabetes mellitus Polyarthralgia Surgical History History of carpal tunnel surgery of right wrist H/O endoscopy History of cataract extraction History of lumpectomy of left breast History of carpal tunnel surgery of left wrist Hx of section Hx laparoscopic cholecystectomy Hx of esophagogastroduodenoscopy Hx of colonoscopy H/O gastric bypass Family History Father Diabetes Hypertension Mother Diabetes Hypertension Maternal Grandmother Colon cancer Paternal Aunt Cancer of ear Social History Household Members: Family Housing: House Alcohol intake: never Patient Tobacco Use Status: Former Tobacco user Tobacco use type: Cigarette Cigarette Packs Per Day: 1 Cigarettes Per Day: 20.0 Years Smoked: 20 e-Cigarette/Vaping Use: Never Used Second Hand Smoke Exposure: No service: No Current occupational status: disabled Current occupation: right hand dominant Cognitive needs: No Hearing needs: No Vision needs: Yes Female Reproductive History Menstrual Age of Menarche: 14 Physical Exam Vital Signs: Last Vital Signs Pulse 69 05/28/24 08:55 BP 136/76 05/28/24 08:55 BMI result Body Mass Index 28.0 Const Other: Absence of Cushingoid features. Absence of acromegalic features. Abdomen lower mid mild erythema, hardened area no drainage Foot exam deferred Results AMB Hemoglobin A1c AMB Hemoglobin A1c 9.1 % Last Edit by LASHONDA Jenkins on 05/28/24 09:27 Results Reviewed Results Reviewed: Laboratory Last Values Glucose (Clinic) 157 mg/dL (60-115) H 05/28/24 09:05 Hgb A1c (Clinic) 9.1 % (4.0-6.0) H 05/28/24 09:13 Assessment & Plan Assessment & Plan (1) T2DM (type 2 diabetes mellitus): Comment: on an insulin pump with u200 insulin Code(s): E11.9 - Type 2 diabetes mellitus without complications Category: Medical Qualifiers: Diabetes mellitus complication status: with hyperglycemia Diabetes mellitus 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 insulin use: with 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 use Qualified Code(s): E11.65 - Type 2 diabetes mellitus with hyperglycemia; Z79.4 - alf (current) use of insulin Plan: 49-year-old type 2 diabetic with nephropathy with preserved renal function, neuropathy and retinopathy on an insulin pump was recently converted to U 200 from U500 and had the addition of Tresiba once daily. She is also on Mounjaro and invokana Increase Tresiba to 34 units I will check her readings on glucose in 1 week She will return in 2 weeks' time She was recommended to go to the ER for evaluation of infection at old pump site. She was also given the name of the surgeon she has seen in the past. She has a a dexamethasone suppresion test which ruled out cushings The patient had an opportunity to ask questions regarding treatment plan. The patient expressed understanding and agreement with the above treatment plan. The patient is aware they should contact our office by phone for worsening glucose readings or for any low blood sugars which may warrant a change in diabetes medication. Compliance is encouraged with medications and any followup testing/consults which may have been ordered. Orders: Orders AMB Hemoglobin A1c Today E11.65 - Type 2 diabetes mellitus with hyperglycemia, Z79.4 - alf (current) use of insulin Medications: Changed From insulin degludec (Tresiba FlexTouch U-200 insulin) 30 units (0.15 mL) subcut DAILY 30 days 6 mL 6RF To insulin degludec (Tresiba FlexTouch U-200 insulin) 34 units (0.17 mL) subcut DAILY 30 days 6 mL 6RF Patient Instructions: The patient was counseled to achieve a target A1C of 7% (154 avg). Fasting blood sugars should be 90-130 in the morning and less than 180 two hours after meals. Reviewed the relationship between poor diabetic control and the development of complications. Coding Level of Care Code Est Pt Level 4 (17746) Complex EM visit Add On G2211 Diagnoses Type 2 diabetes mellitus with hyperglycemia, with long-term current use of insulin E11.65; Z79.4 Diabetes mellitus complication status: with hyperglycemia Diabetes mellitus long wall mining machine tender insulin use: with 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 use Time Spent (min) 30 Comment Time spent reviewing labs/provider notes, face to face, chart doc
[2024-05-28 08:55] VITALS: BP 136/76; PULSE 69; BMI 28.0
[2024-05-28 09:11] LABS: Glucose, Whole Blood 157 mg/dL (60-115)
--- OUTSIDE RECORDS SUMMARY | 2024-05-28 09:20 | XMS_ITS | Clinical Summary ---
Author Organization [facility] Facility Address [address] [place] [id number] Care Team Providers Care Preparation Supervisor Name Role Phone Analilia Chaidez MD Primary Care Provider [phone] Allergies Active Allergy Reactions Criticality Noted Date [...] this topic Insurance MEDICAID MEDICAID Care Teams Preparation Supervisor Relationship Specialty Start Date End Date Analilia Chaidez MD [address] [place], [place] PCP - General 03/06/20
== END 2024-05-28 09:28 | disposition home or self-care (01) ==
LOC: HO.ENCR 08:49
PROVIDERS: PCP Internal Medicine; Visit Provider Nurse Practitioner Adult Health
DX: E11.65 Type 2 diabetes mellitus with hyperglycemia (principal); Z79.4 Long term (current) use of insulin
CPT/HCPCS: 99214; G2211

== ENCOUNTER → 2024-05-28 08:49 | Outpatient (BNVA) | payer OTHER, SELFPAY | PROVIDERS: PCP Internal Medicine; Visit Provider Nurse Practitioner Adult Health | DX: Z46.81 Encounter for fitting and adjustment of insulin pump (principal); E11.65 Type 2 diabetes mellitus with hyperglycemia; Z79.4 Long term (current) use of insulin | CPT/HCPCS: 82947; 83036; 99212 ==

== ENCOUNTER 2024-06-01 08:25 | Outpatient (AMB) | payer OTHER, SELFPAY ==
--- NOTE | 2024-06-01 08:34 | A.OFFVIS_ITS ---
Intake Intake Visit Reasons: T2DM Dredge Lever Operator Required: Yes Dredge Lever Operator Language: Copper Plater Name: Reginald [id number] Information Interpreted: non-clinical & clinical Accompanied by: Self / Same As Patient Allergies adhesive tape [ADHESIVE TAPE] Allergy (Intermediate, Verified 05/28/24 08:56) RASH pioglitazone [From ACTOS] Allergy (Intermediate, Verified 05/28/24 08:56) facial edema,rash latex Allergy (Mild, Verified 05/28/24 08:56) Rash HPI Comprehensive Diabetes Asmnt Most Recent Diabetes Results: 2 Hemoglobin A1c 8.3 % 05/14/18 Microalb/Creat Ratio 69.6 ug/mg cr (<30) H 05/26/24 Cholesterol 174 mg/dL (<200) 05/26/24 HDL Cholesterol 75 mg/dL (>40) 05/26/24 Triglycerides 67 mg/dL (<150) 05/26/24 Creatinine 0.63 mg/dL (0.5-1.4) 05/26/24 Blood Urea Nitrogen 12 mg/dL (9-16) 05/26/24 Sodium 136 mmol/L (135-145) 05/26/24 Potassium 4.3 mmol/L (3.3-5.1) 05/26/24 Chloride 105 mmol/L (96-108) 05/26/24 Carbon Dioxide 25 mmol/L (22-29) 05/26/24 Calcium 9.2 mg/dL (8.4-10.2) 05/26/24 AST 31 U/L (5-31) 05/26/24 ALT 38 U/L (0-31) H 05/26/24 Total Protein 7.6 g/dL (6.5-8.0) 05/26/24 Albumin 4.2 g/dL (3.5-5.0) 05/26/24 [facility] Medical History Bunion of great toe Peripheral vascular disease of lower extremity Cellulitis Uncontrolled type 2 diabetes mellitus with hyperglycemia Physical exam Cellulitis of toe of right foot Hospital discharge follow-up Goiter Onychomycosis Vitamin D deficiency T2DM (type 2 diabetes mellitus) Left ankle pain B12 deficiency Left leg pain Acid reflux History of colonic polyps Chronic fatigue Carpal tunnel syndrome Daytime hypersomnia Autoimmune thyroiditis Fibromyalgia Morbid obesity Spondylosis, thoracic, 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 spine without myelopathy History of ulcer disease Sessile colonic polyp Obesity 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's 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 Diabetic nephropathy associated with type 2 diabetes mellitus Diabetic retinopathy associated with type 2 diabetes mellitus Diabetic polyneuropathy associated with type 2 diabetes mellitus Iron (Fe) deficiency anemia History of Graves' disease Lumbar degenerative disc disease Back pain Anxiety and depression GERD (gastroesophageal reflux disease) Asthma Hyperlipidemia Hypertension Diabetes mellitus Polyarthralgia Surgical History History of carpal tunnel surgery of right wrist H/O endoscopy History of cataract extraction History of lumpectomy of left breast History of carpal tunnel surgery of left wrist Hx of section Hx laparoscopic cholecystectomy Hx of esophagogastroduodenoscopy Hx of colonoscopy H/O gastric bypass Family History Father Diabetes Hypertension Mother Diabetes Hypertension Maternal Grandmother Colon cancer Paternal Aunt Cancer of ear Social History Household Members: Family Housing: House Alcohol intake: never Patient Tobacco Use Status: Former Tobacco user Tobacco use type: Cigarette Cigarette Packs Per Day: 1 Cigarettes Per Day: 20.0 Years Smoked: 20 e-Cigarette/Vaping Use: Never Used Second Hand Smoke Exposure: No service: No Current occupational status: disabled Current occupation: right hand dominant Cognitive needs: No Hearing needs: No Vision needs: Yes Female Reproductive History Menstrual Age of Menarche: 14 Assessment & Plan Assessment & Plan (1) Diabetic polyneuropathy associated with type 2 diabetes mellitus: Code(s): E11.42 - Type 2 diabetes mellitus with diabetic polyneuropathy Plan: Patient presents for pump training for T abdifatah with control IQ, and Dexcom G7 insulin pump therapy with Humalog U200 With Trasiba U200 34 units The following topics were reviewed today: Increasing daily basal insulin dose Staying in automatic mode verses manual mode - Sensor setting (if applicable) ?? High Alert: 180 mg/dl ??? Low Alert: 80 mg/dl Tandem ID: [email or web address] Tandem password: [email or web address] Patient continues to wait for surgery on site of infusion set infection. Patient's glucose continues to run well above target At today's visit See adjustments below to pump settings Patient instructed to contact provider or educator if she begins to experience hypoglycemia. Increase Tresiba U 200 to 40 units daily Message will be sent to provider regarding increase of Mounjaro from 12.5 mg weekly to 15 mg weekly Encourage patient to watch to make sure she is staying in automatic mode, it appears that this time that she is in manual mode 36% of the time Safety information: Importance of a backup plan, for manual injections, proper prescriptions and emergency supplies ketone strips, and rules for testing for ketones Setting verified by CDCES, Pump Settings:with U200 insulin Basal rate(s) (units/hour) : 12 AM? to 5 AM 6 units / hr 5AM to 9 AM 7 units / hr 9 AM? to 9 PM? 4.2 units / hr 9 PM to 12 AM 6 units / hr Bolus setting Insulin Carbohydrate Ratio (s) 12 AM? to 5 AM?1:3 5 AM? to 9AM ? 1:1:5 9AM to 9 PM 1:2 9 PM to 12 AM 1:5 Correction Factor / Sensitivity Factor 12 AM? to 5 AM?1:9 New 5 AM to 9 AM 1:4 9 AM to 9 PM 1:5 9 PM to 12 AM 1:6 Patient Instructions: Aumentar la dosis de Tresiba a 40 unidades diarias. Seguimiento con un/a enfermero/a de educaci?n sobre diabetes en 2 meses. Coding Level of Care Code Est Pt Level 1 (09640) Diagnoses Diabetic polyneuropathy associated with type 2 diabetes mellitus E11.42
--- OUTSIDE RECORDS SUMMARY | 2024-06-01 08:40 | XMS_ITS | Clinical Summary ---
Author Organization [facility] Facility Address [address] [place] [id number] Care Team Providers Care Game Tester Name Role Phone Analilia Chaidez MD Primary Care Provider [phone] Allergies Active Allergy Reactions Criticality Noted Date [...] Diabetes: Visual Foot Exam 03/27/2020 Influenza Vaccine (Season Ended) 2024 Pneumococcal Vaccine: Pediat rics (0 to 5 Years) and At-Risk Patients (6 to 64 Years) Aged Out No longer eligible b ased on patient's age to complete this topic Insurance MEDICAID MEDICAID Care Teams Game Tester Relationship Specialty Start Date End Date Analilia Chaidez MD [address] [place], [place] PCP - General 03/06/20
== END 2024-06-01 09:14 | disposition home or self-care (01) ==
LOC: HO.ENCR 08:25
PROVIDERS: PCP Internal Medicine; Visit Provider Registered Nurse Diabetes Educator
DX: E11.42 Type 2 diabetes mellitus with diabetic polyneuropathy (principal)

== ENCOUNTER → 2024-06-01 08:25 | Outpatient (BNVA) | payer OTHER, SELFPAY | PROVIDERS: PCP Internal Medicine; Visit Provider Registered Nurse Diabetes Educator | DX: Z46.81 Encounter for fitting and adjustment of insulin pump (principal); E11.42 Type 2 diabetes mellitus with diabetic polyneuropathy; Z79.4 Long term (current) use of insulin | CPT/HCPCS: 99211 ==

== ENCOUNTER 2024-06-03 08:14 | Outpatient (AMB) | payer OTHER, SELFPAY ==
--- OUTSIDE RECORDS SUMMARY | 2024-06-03 08:21 | XMS_ITS | Clinical Summary ---
Author Organization [facility] Facility Address [address] [place] [id number] Care Team Providers Care Insurance Agency Manager Name Role Phone Analilia Chaidez MD Primary Care Provider Allergies Active Allergy Reactions Criticality Noted Date [...] Influenza Vaccine (Season Ended) 2024 Pneumococcal Vaccine: Peds ( 0 to 5 Years) and At-Risk Patients (6 to 49 Years) Aged Out No longer eligible b ased on patient's age to complete this topic Insurance Medicaid Medicaid Care Teams Insurance Agency Manager Relationship Specialty Start Date End Date Analilia Chaidez MD [address] [place], [place] PCP - General 03/06/20
--- NOTE | 2024-06-03 08:27 | MHC.PC.OV ---
Vital Signs 06/03/24 08:30 Height 5 ft 9 in Weight 183 lb BMI 27.0 BP 132/80 Blood Pressure Location Lt brachial Position Sitting Intake Visit Reasons: dm Intake Note: Patient here for a follow up dm Speech Pathologist Assistant Required: No Accompanied by: Self / Same As Patient Allergies adhesive tape [ADHESIVE TAPE] Allergy (Intermediate, Verified 06/03/24 08:39) RASH pioglitazone [From ACTOS] Allergy (Intermediate, Verified 06/03/24 08:39) facial edema,rash latex Allergy (Mild, Verified 06/03/24 08:39) Rash Medication List - Last Reconciled 06/03/24 by Analilia Schumacher MD acetaminophen (Tylenol Extra Strength) 500 mg PO Q6H PRN acetone (urine) test (Ketone Urine Test strips) As directed glucose over 300, illness, nausea, vomiting t.i.d. albuterol sulfate 90 mcg/actuation 1 inh inhalation QID PRN albuterol sulfate 2.5 mg (3 mL) inhalation QID PRN 25 days artifi.tears(hypromellose)(PF) 0.3% 1 drp ophthalmic-Right Q4-6H PRN ascorbate calcium (vitamin C) 500 mg PO DAILY blood pressure kit-extra large As directed blood sugar diagnostic (FreeStyle Lite Strips) TEST 4 TIMES DAILY blood-glucose meter (FreeStyle Lite Meter kit) TEST 4 TIMES DAILY buspirone 15 mg PO TID canagliflozin (Invokana) 300 mg PO DAILY cane As directed cetirizine (Zyrtec) 10 mg PO DAILY 90 days cholecalciferol (vitamin D3) 50 mcg PO DAILY 90 days citalopram 10 mg PO DAILY cyanocobalamin (vitamin B-12) 1,000 mcg IM Q4W 4 weeks cyclobenzaprine 10 mg PO TID PRN diclofenac sodium 75 mg PO BID docusate sodium 100 mg PO DAILY ergocalciferol (vitamin D2) 1,250 mcg PO QWEEK 90 days escitalopram oxalate 5 mg PO DAILY ferrous sulfate 325 mg PO DAILY fluticasone propionate 50 mcg/actuation (Flonase Allergy Relief) 1 spray intranasal DAILY 30 days furosemide 20 mg PO BID 90 days gabapentin 100 mg PO TID 30 days glucagon 3 mg/actuation (Baqsimi) 3 mg intranasal .prn PRN 30 days MDD 6 mg [glucose tablets 15 grams PO .prn PRN 30 days MDD 12 tablets] hydrocortisone 2.5% (Proctozone-HC) 1 appl [place] BID PRN hydrocortisone-pramoxine 1-1 % (Proctofoam HC) 1 appl [place] DAILY hydroxyzine HCl 1 - 2 tabs PO QID ibuprofen 400 mg PO TID PRN insulin degludec (Tresiba FlexTouch U-200 insulin) 34 units (0.17 mL) subcut DAILY 30 days insulin lispro (Humalog KwikPen U-200 Insulin) up to 375 units per day via pump subcutaneously use as directed; 30 days insulin syringe-needle U-100 (Advocate Syringes) Use 1 needle once a month lidocaine 5% (Lidoderm) 1 patch topical DAILY PRN MDD remove after 12 hours lisinopril 20 mg PO DAILY methylcellulose (laxative) (Citrucel Sugar Free oral powder) 2 grams PO DAILY PRN montelukast 10 mg PO DAILY 90 days nebulizers (AeroEclipse II Nebulizer) As directed nortriptyline 10 mg PO BEDTIME ondansetron 4 mg PO Q6-8H PRN oxycodone-acetaminophen 5-325 mg 1 tab PO Q8H PRN 30 days pantoprazole 40 mg PO DAILY 30 days pen needle, diabetic (BD Shy 2nd Gen Pen Needle) As directed qid prn pump failure pen needle, diabetic (Comfort EZ Pen [place]) As directed once daily, prn pump failure can increase to qid prochlorperazine maleate 10 mg PO TID PRN rosuvastatin 20 mg PO DAILY 90 days Shower Chair As directed simethicone (Gas Relief Extra Strength) 125 mg PO TID-QID PRN [skin tac apply to skin at pump site and sensor site after cleansing with alcohol.Insert pump cannula/sensor after skin tac has allowed to dry. Use on pump every three days, every 10 at sensor site.] syringe with needle ([employer] Luer Slip Syringe-Needle) For vitamin B12 injection syringe with needle, safety (BD Safety-Jone Detachable Needle) Use 1 syringe once a month thiamine HCl (vitamin B1) 1 tab PO DAILY tirzepatide (Mounjaro) 15 mg (0.6 mL) subcut QWEEK 28 days tizanidine 4 mg PO Q8H PRN 30 days valacyclovir (Valtrex) 1,000 mg PO TID vitamin A 1 cap PO DAILY Tobacco use date assessed: 06/03/24 Dental Screening Dental Screen Date: 03/02/24 HPI HPI Comments History of Present Illness Details The patient is a 49-year-old female presenting for management of her Type 2 Diabetes Mellitus. She is experiencing uncontrolled blood glucose levels, indicated by a Hemoglobin A1c of 9.1%. Her treatment regimen includes Invokana 300 mg and Tresiba 34 units. Alongside her diabetes, she is also managing hypertension with Lisinopril, hyperlipidemia with Rosuvastatin, chronic constipation with Docusate, depression with anxiety controlled on Citalopram, Buspirone, and Escitalopram, as well as fibromyalgia with Gabapentin. Has peripheral vascular disease that has not significantly change after stent in 2023. She has a history of iron deficiency anemia, with recent labs showing persistently low serum iron levels despite supplementation. Her chronic back pain is addressed with Percocet. She has Gastroesophageal Reflux Disease and vitamin D deficiency, and an elevated microalbumin indicates chronic kidney disease. Her chronic allergic rhinitis is being treated with Zyrtec and Singulair. The patient is preparing for surgery for an abscess beneath her umbilicus and has been advised to improve diabetes management to lower her A1c below 8%. Her vitamin D level remains low at 14.7, and there is a plan to increase her management for hyperlipidemia to lower her LDL, currently at 86 but aiming for a target of 70. [facility] Medical History Bunion of great toe Peripheral vascular disease of lower extremity Cellulitis Uncontrolled type 2 diabetes mellitus with hyperglycemia Physical exam Cellulitis of toe of right foot Hospital discharge follow-up Goiter Onychomycosis Vitamin D deficiency T2DM (type 2 diabetes mellitus) Left ankle pain B12 deficiency Left leg pain Acid reflux History of colonic polyps Chronic fatigue Carpal tunnel syndrome Daytime hypersomnia Autoimmune thyroiditis Fibromyalgia Morbid obesity Spondylosis, thoracic, 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 spine without myelopathy History of ulcer disease Sessile colonic polyp Obesity Tracee's disease [facility] (current) use of insulin Diabetic nephropathy associated with type 2 diabetes mellitus Diabetic retinopathy associated with type 2 diabetes mellitus Diabetic polyneuropathy associated with type 2 diabetes mellitus Iron (Fe) deficiency anemia History of Graves' disease Lumbar degenerative disc disease Back pain Anxiety and depression GERD (gastroesophageal reflux disease) Asthma Hyperlipidemia Hypertension Diabetes mellitus Polyarthralgia Surgical History History of carpal tunnel surgery of right wrist H/O endoscopy History of cataract extraction History of lumpectomy of left breast History of carpal tunnel surgery of left wrist Hx of section Hx laparoscopic cholecystectomy Hx of esophagogastroduodenoscopy Hx of colonoscopy H/O gastric bypass Family History Father Diabetes Hypertension Mother Diabetes Hypertension Maternal Grandmother Colon cancer Paternal Aunt Cancer of ear Social History Household Members: Family Housing: House Alcohol intake: never Patient Tobacco Use Status: Former Tobacco user Tobacco use type: Cigarette Cigarette Packs Per Day: 1 Cigarettes Per Day: 20.0 Years Smoked: 20 e-Cigarette/Vaping Use: Never Used Second Hand Smoke Exposure: No service: No Current occupational status: disabled Current occupation: right hand dominant Cognitive needs: No Hearing needs: No Vision needs: Yes Female Reproductive History Menstrual Age of Menarche: 14 Questionnaire PHQ-9 Over the last 2 weeks, how often have you been bothered by any of the following problems? 1. Little interest or pleasure in doing things: not at all 2. Feeling down, depressed, or hopeless: several days 3. Trouble falling or staying asleep, or sleeping too much: several days 4. Feeling tired or having little energy: not at all 5. Poor appetite or overeating: not at all 6. Feeling bad about yourself - or that you are a failure or have let yourself or your family down: not at all 7. Trouble concentrating on things, such as reading the newspaper or watching television: not at all 8. Moving or speaking so slowly that other people could have noticed. Or the opposite - being so fidgety or restless that you have been moving around a lot more than usual: not at all 9. Thoughts that you would be better off or of hurting yourself in some way: not at all Total score: 2 Depression Screening Interpretation: Positive Depression Screening Follow-up: Existing condition, In treatment, Community Mental Health Worker F/U and Follow-up Visit Requested Depression Screening Done: Yes 08599 - PHQ-9 Billing: Yes Source: Developed by Drs. Parmjit Be, Ji Sun and colleagues, with an educational anni from [employer]. Thrive Questionnaire Date Thrive assessed: 06/03/24 I am a: Patient What is your living situation today?: I have a steady place to live Within the past 12 months, did the food you bought not last and you didn't have the money to get more?: Sometimes True Within the past 12 months, did you worry whether your food would run out before you got money to buy more?: Sometimes True Do you have trouble paying for medicines?: No Do you have trouble getting transportation to medical appointments?: No Do you have trouble paying your heating and electricity bill?: Yes Do you have trouble taking care of your child, family member or friend?: Yes Do you have trouble with day-to-day activities such as bathing, preparing meals, shopping, managing finances, etc.?: Yes Are you currently unemployed and looking for a job?: Yes Are you interested in more education?: I choose not to answer this question Please select the resources that you would like help with: None Currently or been in a relationship where the following occur: No concerns reported THRIVE Score: 3 AUDIT C Alcohol Use Questionnaire (AUDIT-C) 1. How often do you have a drink containing alcohol?: Never Total Score: 0 Score Reviewed/Action Taken: No MARCO-7 AMB Questionnaire MARCO-7 Date MARCO - 7 assessed: 06/03/24 Feeling nervous, anxious, or on edge: 1 = Several days Not being able to stop or control worryin = Not at all Worrying too much about different things: 1 = Several days Trouble relaxin = Not at all Being so restless that it is hard to sit still: 0 = Not at all Becoming easily annoyed or irritable: 0 = Not at all Feeling afraid as if something awful might happen: 0 = Not at all Total MARCO-7 score (0-4 normal; 5-9 mild; 10-14 moderate; 15-21 severe): 2 Source: Developed by Yessi Marcum Kurt Kroenke and colleagues, with an educational anni from [employer]. MARCO-7 Assessment Billing MARCO-7 Assessment Tool: MARCO-7 Assessment 34614 Review of Systems Const All systems reviewed & are unremarkable except as noted in HPI and below Card Denies chest pain at rest, Denies chest pain with activity, Denies edema, Denies irregular heart rhythm, Denies claudication, Denies dyspnea, Denies dyspnea on exertion, Denies orthopnea, Denies paroxysmal nocturnal dyspnea and Denies slow heart rate Resp Denies cough, Denies dyspnea and Denies dyspnea on exertion GI Denies abdominal pain, Denies change in bowel habits, Denies excessive flatus, Denies nausea and Denies vomiting Denies urinary incontinence, Denies urinary hesitancy and Denies urinary urgency Musc Denies abnormal gait, Denies atrophy, Denies deformity and Denies limited range of motion Skin/Breast Denies bleeding lesions, Denies changing lesions and Denies rash Neuro Denies abnormal gait and Denies lack of coordination Physical exam (Primary Care) Vital Signs: Last Vital Signs BP 132/80 06/03/24 08:30 BMI result Body Mass Index 27.0 Tobacco/Smoking Status: Tobacco use Status Tobacco use date assessed 06/03/24 06/03/24 08:35 Patient Tobacco Use Status Former Tobacco user 06/03/24 08:35 Tobacco use type Cigarette 06/03/24 08:35 e-Cigarette/Vaping Use Never Used 06/03/24 08:35 PHQ-9: PHQ-9 Score PHQ-9: Total score 2 06/03/24 08:45 Depression Screening Interpretation: Positive Depression Screening Follow-up: Existing condition, In treatment, Community Mental Health Worker F/U and Follow-up Visit Requested Thrive Assessment: Date of Thrive Assessment Date Thrive assessed 06/03/24 06/03/24 08:35 Currently or been in a relationship where the following occur: No concerns reported Resp Effort & Inspection: normal respiratory effort Auscultation: clear to auscultation bilaterally Cardio Jugular venous distension: no JVD Rate: regular rate Rhythm: regular rhythm Heart sounds: S1 normal heart sound present and S2 normal heart sound present Coding Level of Care Code Est Pt Level 4 (79185) Complex EM visit Add On G2211 Diagnoses Peripheral vascular disease of lower extremity I73.9 Uncontrolled type 2 diabetes mellitus with hyperglycemia E11.65 Moderate major depression F32.1 Essential hypertension I10 Hyperlipidemia LDL goal <70 E78.5 Autoimmune thyroiditis E06.3 Anemia D64.9 Microalbuminuria R80.9 Additional Codes MARCO-7 Assessment Billing - MARCO-7 Assessment Tool: MARCO-7 Assessment 41792 ([id number]) PHQ-9 - 94880 - PHQ-9 Billing: Yes ([id number]) Time Spent (min) 23 Assessment & Plan Assessment & Plan (1) Peripheral vascular disease of lower extremity: Comment: s/p stent 2023 Code(s): I73.9 - Peripheral vascular disease, unspecified Category: Medical (2) Uncontrolled type 2 diabetes mellitus with hyperglycemia: Code(s): E11.65 - Type 2 diabetes mellitus with hyperglycemia Category: Medical (3) Moderate major depression: Code(s): F32.1 - Major depressive disorder, single episode, moderate Category: Medical (4) Essential hypertension: Code(s): I10 - Essential (primary) hypertension Category: Medical (5) Hyperlipidemia LDL goal <70: Code(s): E78.5 - Hyperlipidemia, unspecified Category: Medical (6) Autoimmune thyroiditis: Code(s): E06.3 - Autoimmune thyroiditis Category: Medical (7) Anemia: Code(s): D64.9 - Anemia, unspecified Category: Medical (8) Microalbuminuria: Code(s): R80.9 - Proteinuria, unspecified Category: Medical Plan We will continue the current management for Type 2 Diabetes Mellitus using Invokana and Tresiba and aim to reduce Hemoglobin A1c below 8% for the planned surgery. A laboratory test will be repeated in four months. For hypertension, continue Lisinopril, and for hyperlipidemia, increase Rosuvastatin dosage. Maintain Docusate for constipation and iron supplementation for iron deficiency anemia. Depression and anxiety treatment will remain unchanged. Management of fibromyalgia and back pain will continue with Gabapentin and Percocet. Focus on improving vitamin D levels and address allergies with Zyrtec and Singulair. Skin care advice was given to manage rashes beneath the breasts due to excess skin. Patient was informed and verbally consented to the use of an ambient scribe for clinic note documentation during this visit. During our discussion, I emphasized the need to improve her glycemic control with her current diabetes regimen. I have advised repeating laboratory work in four months to evaluate the effectiveness of her treatment plan. We discussed the importance of lowering her Hemoglobin A1c below 8% before undergoing surgery. I communicated the plan to increase her hyperlipidemia treatment and advised her to continue her current regimen for hypertension, constipation, and allergies. The benefits and necessity of continuing her mental health medication were acknowledged, given her current stable condition. We also addressed the management of her vitamin D deficiency and chronic pain issues. Orders: Orders Comprehensive [place]. Panel Fast 4 Months I73.9 - Peripheral vascular disease, unspecified Complete Blood Count Auto Diff 4 Months D64.9 - Anemia, unspecified IRON PROFILE 4 Months D64.9 - Anemia, unspecified Lipid Panel 4 Months E78.5 - Hyperlipidemia, unspecified Microalbumin, Random (w Creat) 4 Months R80.9 - Proteinuria, unspecified Vitamin D 25-OH Total 4 Months E55.9 - Vitamin D deficiency, unspecified Vitamin B12 and Folate 4 Months E53.8 - Deficiency of other specified B group vitamins Medications: New rosuvastatin 40 mg PO DAILY 90 tabs 1RF 90 days Discontinued rosuvastatin Discontinued Reason: Patient Completed Course 20 mg PO DAILY 90 days 90 tabs 1RF Patient Instructions: - Continue taking all prescribed medications as directed. - Monitor blood glucose levels regularly. - Maintain a healthy diet and exercise routine to manage blood sugar. - Take iron supplements as advised to improve iron levels. - Follow up on your laboratory work in four months. - Increase care for skin health to prevent rashes, especially beneath breasts. - Regularly use vitamin supplements as recommended. - Contact the doctor if experiencing new symptoms or any medication side effects. - Prepare for surgery by aiming to lower Hemoglobin A1c below 8%.
[2024-06-03 08:30] VITALS: BP 132/80; BMI 27.0
== END 2024-06-03 08:52 | disposition home or self-care (01) ==
LOC: HO.HMCH 08:15
PROVIDERS: PCP Internal Medicine; Visit Provider Internal Medicine
DX: I73.9 Peripheral vascular disease, unspecified (principal); E11.65 Type 2 diabetes mellitus with hyperglycemia; F32.1 Major depressive disorder, single episode, moderate; I10 Essential (primary) hypertension; E78.5 Hyperlipidemia, unspecified; E06.3 Autoimmune thyroiditis; D64.9 Anemia, unspecified; R80.9 Proteinuria, unspecified

== ENCOUNTER → 2024-06-03 08:14 | Outpatient (BNVA) | payer OTHER, SELFPAY | PROVIDERS: PCP Internal Medicine; Visit Provider Internal Medicine | DX: I73.9 Peripheral vascular disease, unspecified (principal); E11.65 Type 2 diabetes mellitus with hyperglycemia; F32.1 Major depressive disorder, single episode, moderate; E78.5 Hyperlipidemia, unspecified; E06.3 Autoimmune thyroiditis; D64.9 Anemia, unspecified; R80.9 Proteinuria, unspecified; I10 Essential (primary) hypertension | CPT/HCPCS: 96127; 99212 ==

== ENCOUNTER 2024-06-18 08:49 | Outpatient (AMB) | payer OTHER, SELFPAY ==
--- NOTE | 2024-06-18 08:37 | A.OFFVIS_ITS ---
Vital Signs 06/18/24 08:50 Height 5 ft 9 in Weight 187 lb 6.287 oz BMI 27.7 BP 144/82 H Blood Pressure Location Rt brachial Position Sitting Pulse 88 Pulse Source Pulse Oximeter Pulse Oximetry (%) 88 L Oxygen Delivery Method Room Air Intake Visit Reasons: DM Intake Note: Patient present today to follow up on Type 2 Diabetes Mellitus/Insulin Pump. Last Diabetic Eye exam: 12/2023 Last Podiatry Visit: Patient needs a new referral Most Recent HgA1C: 9.1%, 05/28/2024 Random Glucose: 119 mg/dL, Today Heritage Consultant Required: Yes Heritage Consultant Language: Correctional Security Officer Name: LASHONDA Jenkins/PAUL CHICSA Information Interpreted: non-clinical & clinical Accompanied by: Self / Same As Patient Allergies adhesive tape [ADHESIVE TAPE] Allergy (Intermediate, Verified 06/18/24 08:49) RASH pioglitazone [From ACTOS] Allergy (Intermediate, Verified 06/18/24 08:49) facial edema,rash latex Allergy (Mild, Verified 06/18/24 08:49) Rash HPI Comments Details: 49 YO F with PMHx T2DM who is seen in F/U for the same. She was last seen 05/28/24 at which time active insulin time on her pump was reduced from 3.5-2.5 to lower her postprandial readings. She has upcoming surgery on her abdomen at a site of a previous insulin pump insertion site. Prior to surgery her A1c needs to be improved. She has a history of prior bariatric surgery in June of 2015. She is on u200 insulin in an insulin pump along with Parvin. She previously was on U500 insulin and was struggling to achieve control with this. Her insulin was changed to U 200 which has a similar action of U 100 and more recently a once daily basal shot of Tresiba was added due to insulin resistance. She has an area in the lower abdomen that has had a small amount of drainage and feels more. This is at a site of an old pump site. Current medication: Tresiba 34 units Invokana 300 mg daily Mounjaro 12.5 mg weekly She is on Humalog U 200 insulin in her pump She has a tandem T slim X 2 Dexcom average glucose: 245 14 day continuous glucose monitor report reviewed TIme in ranges: Forty-six % very high (above 250) 35 % high ?(181-250) 18 % in range ?(70-180] 1 % low (69-55) 0 % ?very low (below 54) Interpretation consistently running over target Bolus setting Insulin Carbohydrate Ratio (s) 12 AM? to 5 AM?1:3 5 AM? to 9am? 1:1.5 9AM to 9PM 1:2 9PM to 12AM 1.5 Correction Factor / Sensitivity Factor 12 AM? to 5 AM?1:9 5 AM to 12 AM 1:5 Glucose target range 00:00 120 05:00 120 09:00 120 21:00 120 Active Insulin Time:?2.5 Has retinopathy last eye exam 10/2023 Has neuropathy on gabapentin. Symptoms: Numbness and tingling no pain or cramping Has nephropathy on DORITA inhibitor 03/08/2024 eGFR>60 recently seen by [place] [facility] [place] chronic hyponatremia and diabetic kidney disease 03/08/24 35.0 Has HLD on statin 03/08/2024 69 Has peripheral vascular disease status post stent 2023 Sees [facility] on an ongoing basis [facility] Medical History Bunion of great toe Peripheral vascular disease of lower extremity Cellulitis Uncontrolled type 2 diabetes mellitus with hyperglycemia Physical exam Cellulitis of toe of right foot Hospital discharge follow-up Goiter Onychomycosis Vitamin D deficiency T2DM (type 2 diabetes mellitus) Left ankle pain B12 deficiency Left leg pain Acid reflux History of colonic polyps Chronic fatigue Carpal tunnel syndrome Daytime hypersomnia Autoimmune thyroiditis Fibromyalgia Morbid obesity Spondylosis, thoracic, 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 spine without myelopathy History of ulcer disease Sessile colonic polyp Obesity Tracee's disease 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 Diabetic nephropathy associated with type 2 diabetes mellitus Diabetic retinopathy associated with type 2 diabetes mellitus Diabetic polyneuropathy associated with type 2 diabetes mellitus Iron (Fe) deficiency anemia History of Graves' disease Lumbar degenerative disc disease Back pain Anxiety and depression GERD (gastroesophageal reflux disease) Asthma Hyperlipidemia Hypertension Diabetes mellitus Polyarthralgia Surgical History History of carpal tunnel surgery of right wrist H/O endoscopy History of cataract extraction History of lumpectomy of left breast History of carpal tunnel surgery of left wrist Hx of section Hx laparoscopic cholecystectomy Hx of esophagogastroduodenoscopy Hx of colonoscopy H/O gastric bypass Family History Father Diabetes Hypertension Mother Diabetes Hypertension Maternal Grandmother Colon cancer Paternal Aunt Cancer of ear Social History Household Members: Family Housing: House Alcohol intake: never Patient Tobacco Use Status: Former Tobacco user Tobacco use type: Cigarette Cigarette Packs Per Day: 1 Cigarettes Per Day: 20.0 Years Smoked: 20 e-Cigarette/Vaping Use: Never Used Second Hand Smoke Exposure: No service: No Current occupational status: disabled Current occupation: right hand dominant Cognitive needs: No Hearing needs: No Vision needs: Yes Female Reproductive History Menstrual Age of Menarche: 14 Physical Exam Const Other: Absence of Cushingoid features. Absence of acromegalic features. Neck exam reveals nl size thyroid about 15 gms. No thyroid nodules palpable. , Reg R/R. No M/R G. Skin exam reveals absence of vitiligo or acanthosis nigricans. no edema Assessment & Plan Assessment & Plan (1) T2DM (type 2 diabetes mellitus): Comment: on an insulin pump with u200 insulin Code(s): E11.9 - Type 2 diabetes mellitus without complications Category: Medical Qualifiers: Diabetes mellitus senior care insulin use: with ferry terminal agent use Diabetes mellitus complication status: with hyperglycemia Qualified Code(s): E11.65 - Type 2 diabetes mellitus with hyperglycemia; Z79.4 - 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 Plan: Type 2 diabetic with significant insulin resistance on a tandem T slim X 2 pump with U 200 insulin, Mounjaro 12.5 mg, Invokana and Tresiba once daily with poor diabetic control. Insulin targets adjusted Increase Tresiba to 46 units Contact pharmacy to determine why 15 mg of Mounjaro was not avail to patient We will see back in 2 weeks Medications: Changed From insulin lispro (Humalog KwikPen U-200 Insulin) up to 375 units per day via pump subcutaneously use as directed; 30 days 60 mL 11RF E11.65 - Type 2 diabetes mellitus with hyperglycemia To insulin lispro (Humalog KwikPen U-200 Insulin) up to 425 units per day via pump subcutaneously use as directed; 30 days 66 mL 11RF E11.65 - Type 2 diabetes mellitus with hyperglycemia From pen needle, diabetic (BD Shy 2nd Gen Pen Needle) As directed qid prn pump failure 100 ea 6RF E11.65 - Type 2 diabetes mellitus with hyperglycemia To pen needle, diabetic As directed qid prn pump failure 100 ea 6RF E11.65 - Type 2 diabetes mellitus with hyperglycemia From insulin degludec (Tresiba FlexTouch U-200 insulin) 34 units (0.17 mL) subcut DAILY 30 days 6 mL 6RF To insulin degludec (Tresiba FlexTouch U-200 insulin) 46 units (0.23 mL) subcut DAILY 30 days 9 mL 6RF Refilled insulin lispro (Humalog KwikPen U-200 Insulin) up to 425 units per day via pump subcutaneously use as directed; 30 days 66 mL 11RF E11.65 - Type 2 diabetes mellitus with hyperglycemia insulin degludec (Tresiba FlexTouch U-200 insulin) 46 units (0.23 mL) subcut DAILY 30 days 9 mL 6RF Coding Level of Care Code Est Pt Level 4 (97098) Complex EM visit Add On G2211 Diagnoses Type 2 diabetes mellitus with hyperglycemia, with long-term current use of insulin E11.65; Z79.4 Diabetes mellitus ferry terminal agent insulin use: with senior care use Diabetes mellitus complication status: with hyperglycemia Time Spent (min) 30 Comment Time spent reviewing labs/provider notes, face to face, chart doc
[2024-06-18 08:50] VITALS: BP 144/82; PULSE 88; O2SAT 88; BMI 27.7
--- OUTSIDE RECORDS SUMMARY | 2024-06-18 08:55 | XMS_ITS | Clinical Summary ---
Author Organization [facility] Facility Address [address] [place] [id number] Care Team Providers Care Technology Professional Name Role Phone Analilia Chaidez MD Primary Care Provider [phone] Allergies Active Allergy Reactions Criticality Noted Date [...] this topic Insurance Medicaid Medicaid Care Teams Technology Professional Relationship Specialty Start Date End Date Analilia Chaidez MD [address] [place], [place] PCP - General 03/06/20
[2024-06-18 09:04] LABS: Glucose, Whole Blood 119 mg/dL (60-115)
== END 2024-06-18 09:11 | disposition home or self-care (01) ==
LOC: HO.ENCR 08:49
PROVIDERS: PCP Internal Medicine; Visit Provider Nurse Practitioner Adult Health
DX: E11.65 Type 2 diabetes mellitus with hyperglycemia (principal); Z79.4 Long term (current) use of insulin
CPT/HCPCS: 99214; G2211

== ENCOUNTER → 2024-06-18 08:49 | Outpatient (BNVA) | payer OTHER, SELFPAY | PROVIDERS: PCP Internal Medicine; Visit Provider Nurse Practitioner Adult Health | DX: E11.65 Type 2 diabetes mellitus with hyperglycemia (principal); Z96.41 Presence of insulin pump (external) (internal); Z79.4 Long term (current) use of insulin | CPT/HCPCS: 82947; 99212 ==

== ENCOUNTER 2024-06-30 10:47 | Outpatient (AMB) | payer OTHER, SELFPAY ==
[2024-06-30 10:59] VITALS: BP 155/84; PULSE 73; O2SAT 100; BMI 27.1
--- NOTE | 2024-06-30 10:59 | A.OFFVIS_ITS ---
Vital Signs 06/30/24 10:59 Height 5 ft 9 in Weight 183 lb 6 oz BMI 27.1 BP 155/84 H Blood Pressure Location Rt brachial Position Sitting Pulse 73 Pulse Source Pulse Oximeter Pulse Oximetry (%) 100 Oxygen Delivery Method Room Air Intake Visit Reasons: FU pain increasing Master Control Operator Required: Yes Master Control Operator Name: Laurence Trinh C.L.M Allergies adhesive tape [ADHESIVE TAPE] Allergy (Intermediate, Verified 06/30/24 11:03) RASH pioglitazone [From ACTOS] Allergy (Intermediate, Verified 06/30/24 11:03) facial edema,rash latex Allergy (Mild, Verified 06/30/24 11:03) Rash HPI Comments Details: Anitha is very pleasant 48 years old female who presents in my office with c omplains on pain in the left shoulder. In the past she received therapeutic trigger point injections in bilateral trapezius muscles as well as bilateral rhomboid muscles. She reports good pain relief after those procedures. She reports 80% pain improvement after each injection. She requests me to perform trigger point injections for her today again. I performed the procedure see description of the procedure as below. She was initially scheduled for radiofrequency ablation of L3, L4, dorsal ramus L5 bilateral under sedation however she change her mind and cancel the procedure, after that she decided to reschedule procedure again. Now she is asking me when the procedure will be done. We unfortunately can not tell her that because we now in the process of pre approval this procedure again. 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 spine without myelopathy History of ulcer disease Sessile colonic polyp Obesity Tracee's disease meterman (current) use of insulin Diabetic nephropathy associated with type 2 diabetes mellitus Diabetic retinopathy associated with type 2 diabetes mellitus Diabetic polyneuropathy associated with type 2 diabetes mellitus Iron (Fe) deficiency anemia History of Graves' disease Lumbar degenerative disc disease Back pain Anxiety and depression GERD (gastroesophageal reflux disease) Asthma Hyperlipidemia Hypertension Diabetes mellitus Polyarthralgia Surgical History History of carpal tunnel surgery of right wrist H/O endoscopy History of cataract extraction History of lumpectomy of left breast History of carpal tunnel surgery of left wrist Hx of section Hx laparoscopic cholecystectomy Hx of esophagogastroduodenoscopy Hx of colonoscopy H/O gastric bypass Family History Father Diabetes Hypertension Mother Diabetes Hypertension Maternal Grandmother Colon cancer Paternal Aunt Cancer of ear Social History Household Members: Family Housing: House Alcohol intake: never Patient Tobacco Use Status: Former Tobacco user Tobacco use type: Cigarette Cigarette Packs Per Day: 1 Cigarettes Per Day: 20.0 Years Smoked: 20 e-Cigarette/Vaping Use: Never Used Second Hand Smoke Exposure: No service: No Current occupational status: disabled Current occupation: right hand dominant Cognitive needs: No Hearing needs: No Vision needs: Yes Female Reproductive History Menstrual Age of Menarche: 14 Review of Systems Const All systems reviewed & are unremarkable except as noted in HPI and below ENT Reports Normal hearing present Neuro Reports Normal hearing present, Denies Abnormal speech present and Denies Sensory deficit (Neuro) Physical Exam Vital Signs: Last Vital Signs Pulse 73 06/30/24 10:59 BP 155/84 H 06/30/24 10:59 Pulse Ox 100 06/30/24 10:59 Oxygen Delivery Method Room Air 06/30/24 10:59 BMI result Body Mass Index 27.1 Const General: cooperative, healthy appearing and no acute distress Nutritional Appearance: overweight Orientation/consciousness: patient oriented x3 Limitations: language barrier Eyes Sclerae: sclerae normal Resp Effort & Inspection: normal respiratory effort, able to speak in complete sentences, normal respiratory pattern, no audible wheezes and no cough Cardio Jugular venous distension: no JVD GI Inspection: Yes normal to inspection Auscultation: normal bowel sounds Neuro General: patient oriented x3 Cranial nerves: Yes Normal hearing present Speech: No Abnormal speech present Sensory Exam: No Sensory deficit (Neuro) Psych Appearance: grossly normal and well kempt Attitude: cooperative Office Procedures Therapeutic Injection Therapeutic Injection [id number]-[id number] Point Injection 3 or more All charges added?: Procedure code (CPT) selection complete Office Meds triamcinolone acetonide 40 mg/mL suspension for injection Performing Provider: Poli Tristan MD [place] [facility] Administered by: Poli Tristan MD on 06/30/24 12:57 Dose Route Admin Location Dispensed Lot Number Expiration Date [facility] Top Installer 40 mg Infiltration 1 mL 40 mg Infiltration left upper back 1 mL [id number] 01/23/26 humira bupivacaine (PF) 0.5 % (5 mg/mL) injection solution Performing Provider: Poli Tristan MD Performing [place] [facility] Administered by: Poli Tristan MD on 06/30/24 12:57 Dose Route Admin Location Dispensed Lot Number Expiration Date [facility] Top Installer 10 mL Infiltration 10 mL [id number] 01/23/25 Assessment & Plan Assessment & Plan (1) Myofascial pain syndrome: Code(s): M79.18 - Myalgia, other site Category: Medical Plan: Trigger point injection. After obtaining informed consent the patient was positioned sitting on examination table. The left upper back was prepped with ChloraPrep most tender points were palpated and marked. After that injection into the upper portion of the trapezius muscle, into the rhomboid minor muscle as well as into the intrascapular muscle was performed in each side spreading the medication in fan- like fashion. Upon completion of the procedure the needle was withdrawn sterile Band-Aids were applied. The patient tolerated the procedure well. (2) Spondylosis of lumbosacral region without myelopathy or radiculopathy: Code(s): M47.817 - Spondylosis without myelopathy or radiculopathy, lumbosacral region Category: Medical Plan Anitha is back in my office to receive trigger point injection. The report of the procedure see as above. She also would like to schedule repeat radiofrequency ablation L3, L4, dorsal ramus L5. We are in the process to approve this procedure with her insurance company. She can not receive right- sided trigger point injections in 1 month. However after that we would need to wait yet another month to perform RFA as above. Orders: Orders AMB Trigger Point Injection Today M79.18 - Myalgia, other site Medications: New bupivacaine (PF) 10 mL Infiltration ONCE 10 mL 0RF M79.18 - Myalgia, other site triamcinolone acetonide 40 mg Infiltration ONCE 1 mL 0RF M79.18 - Myalgia, other site Coding Level of Care Code Est Pt Level 3 (94317) Procedure Only Diagnoses Myofascial pain syndrome M79.18 Spondylosis of lumbosacral region without myelopathy or radiculopathy M47.817 CPT Codes Therapeutic Injection - Ther Injection 2: [id number] Point Injection 3 or more ([id number])
--- OUTSIDE RECORDS SUMMARY | 2024-06-30 12:08 | XMS_ITS | Clinical Summary ---
Author Organization [facility] Facility Address [address] [place] [address] Care Team Providers Care Parking Patroller Name Role Phone Analilia Chaidez MD Primary Care Provider [phone] Allergies Active Allergy Reactions Criticality Noted Date [...] this topic Insurance Medicaid Medicaid Care Teams Parking Patroller Relationship Specialty Start Date End Date Analilia Chaidez MD [address] [place], [place] PCP - General 03/06/20
== END 2024-06-30 11:27 | disposition home or self-care (01) ==
LOC: HO.PMC 10:48
PROVIDERS: PCP Internal Medicine; Visit Provider Anesthesiology
DX: M79.18 Myalgia, other site (principal); M47.817 Spondylosis without myelopathy or radiculopathy, lumbosacral region
CPT/HCPCS: 20553; 99213

== ENCOUNTER → 2024-06-30 10:47 | Outpatient (BNVA) | payer OTHER, SELFPAY | PROVIDERS: PCP Internal Medicine; Visit Provider Anesthesiology | DX: M79.18 Myalgia, other site (principal); M47.817 Spondylosis without myelopathy or radiculopathy, lumbosacral region | CPT/HCPCS: 20553; 99212; J0665; J3300 ==

== ENCOUNTER 2024-07-01 08:33 | Outpatient (REF) | payer OTHER, SELFPAY ==
--- OUTSIDE RECORDS SUMMARY | 2024-07-01 08:48 | XMS_ITS | Clinical Summary ---
Author Organization [facility] Facility Address [address] [place] [id number] Care Team Providers Care Child Care Leader Name Role Phone Analilia Chaidez MD Primary Care Provider [phone] Allergies Active Allergy Reactions Criticality Noted Date [...] this topic Insurance Medicaid Medicaid Care Teams Child Care Leader Relationship Specialty Start Date End Date Analilia Chaidez MD [address] [place], [place] PCP - General 03/06/20
[2024-07-01 08:54] LABS: MANUAL DIFF FLAG NO
[2024-07-01 09:29] LABS: Basophils Percent Auto 0.2 % (0-2); Eosinophils Percent Auto 0.1 % (0-4); Hematocrit 36.7 % (37.0-47.0); Hemoglobin 11.9 g/dl (12.0-16.0); Imm Gran Abs Auto 0.03 X10*3/uL (0.00-0.03); Imm Gran Pct Auto 0.4 % (0.0-0.4); Lymphocytes Absolute Auto 1.6 X10*3/uL (1.2-4.9); Lymphocytes Percent Auto 19.3 % (20-40); Mean Corpuscular HGB Conc 32.4 g/dl (31.0-35.0); Mean Corpuscular Volume 77.1 fL (80.0-98.0); Mean Platelet Volume 10.3 fL (9.4-12.3); Monocytes Absolute Auto 0.5 X10*3/uL (0.1-1.2); Monocytes Percent Auto 6.1 % (2-11); Neutrophils Percent Auto 73.9 % (45-73); Platelet Count 286 X10*3/uL (160-400); Red Blood Count 4.76 X10*6/uL (4.20-5.50); Red Cell Distribution Width 14.6 % (11.0-16.0); White Blood Count 8.1 X10*3/uL (4.8-10.8)
[2024-07-01 09:39] LABS: Appearance Urine Clear; Color Urine Yellow; Glucose Urine UA >=1000 mg/dL (Negative); Leukocyte Esterase Urine Negative (Negative); Nitrite Urine Negative (Negative); Specific Gravity - Urine 1.025 (1.005-1.025); UMIC TRIGGER UA YES; Urine Blood Negative (Negative); Urine Ketones 15 mg/dL (Negative); Urine Protein Negative (Neg-Trace)
[2024-07-01 09:55] LABS: Bacteria Urine None Seen (None Seen); Hyaline Casts Urine 0-2 /LPF (0-2); RBC Urine 0-2 /HPF (0-2); WBC Urine 0-5 /HPF (0-5)
[2024-07-01 09:59] LABS: Alanine Aminotransferase 22 U/L (0-31); Albumin Level 4.3 g/dL (3.5-5.0); Alkaline Phosphatase 102 U/L (39-117); Anion Gap 13 (12-20); Aspartate Amino Transferase 26 U/L (5-31); Bilirubin Total 0.7 mg/dL (0.0-1.0); Blood Urea Nitrogen 14 mg/dL (9-16); Calcium 9.6 mg/dL (8.4-10.2); Carbon Dioxide 25 mmol/L (22-29); Chloride 99 mmol/L (96-108); Cholesterol 179 mg/dL (<200); Estimated Glomerular Filt Rate > 60; Glucose Fasting 241 mg/dL (60-99); Glucose Random 240 mg/dL (60-115); HDL Cholesterol 75 mg/dL (>40); Iron 57 mcg/dL (30-160); LDL Cholesterol Calculated 87 mg/dL (<100); Percent Iron Saturation 13 % (15-50); Potassium 4.4 mmol/L (3.3-5.1); Sodium 133 mmol/L (135-145); Total Iron Binding Capacity 433 mcg/dL (228-428); Total Protein 7.8 g/dL (6.5-8.0); Triglycerides 87 mg/dL (<150); Unsaturated Iron Binding 376 ug/dL
[2024-07-01 10:02] LABS: Sodium 132 mmol/L (135-145)
[2024-07-01 10:09] LABS: Ferritin 7 ng/mL (10-250)
[2024-07-01 10:25] LABS: Vitamin D 25-OH Total 15.3 ng/mL (>30)
[2024-07-01 12:39] LABS: Creatinine Urine 77.73 mg/dL; Creatinine Urine 77.75 mg/dL; Microalbum/Creatinine Ratio Ur 32.1 ug/mg cr (<30); Total Protein Urine Random 13 mg/dL (<12)
== END 2024-07-01 08:34 | disposition home or self-care (01) ==
LOC: HO.LAB 08:33
PROVIDERS: Absent Provider Nurse Practitioner Family; PCP Internal Medicine; Referring Provider Internal Medicine; Visit Provider Internal Medicine Hypertension Specialist
DX: E11.65 Type 2 diabetes mellitus with hyperglycemia (principal); R80.9 Proteinuria, unspecified; D64.9 Anemia, unspecified; E87.1 Hypo-osmolality and hyponatremia; E55.9 Vitamin D deficiency, unspecified; E78.5 Hyperlipidemia, unspecified
CPT/HCPCS: 36415; 80048; 80053; 80061; 81001; 82043; 82306; 82570; 82728; 83540; 84156; 84295; 85025

== ENCOUNTER 2024-07-02 07:58 | Outpatient (AMB) | payer OTHER, SELFPAY ==
--- NOTE | 2024-07-02 07:21 | A.OFFVIS_ITS ---
Vital Signs 07/02/24 08:04 07/02/24 08:31 Height 5 ft 9 in Weight 178 lb 9.191 oz BMI 26.4 BP 166/86 H 152/76 H Blood Pressure Location Rt brachial Rt brachial Position Sitting Sitting Pulse 71 Pulse Source Pulse Oximeter Pulse Oximetry (%) 98 Oxygen Delivery Method Room Air Intake Visit Reasons: t1dm Intake Note: Patient present today to follow up on Type 2 Diabetes Mellitus/Insulin Pump. Last Diabetic Eye exam: 12/2023 Last Podiatry Visit: Patient needs a new referral Most Recent HgA1C: 9.1%, 05/28/2024 Random Glucose: 247 mg/dL, Today Supervisor Looping Required: Yes Supervisor Looping Language: Striker Out Name: LASHONDA Jenkins/PAUL CHICAS Information Interpreted: non-clinical & clinical Accompanied by: Self / Same As Patient Allergies adhesive tape [ADHESIVE TAPE] Allergy (Intermediate, Verified 06/30/24 11:03) RASH pioglitazone [From ACTOS] Allergy (Intermediate, Verified 06/30/24 11:03) facial edema,rash latex Allergy (Mild, Verified 06/30/24 11:03) Rash HPI Comments Details: 49 YO F with PMHx T2DM who is seen in F/U for the same. She was last seen 06/18/24 at which time 3.5-2.5 to lower her postprandial readings. She Tresiba was increased. She has upcoming surgery on her abdomen at a site of a previous insulin pump insertion site. Prior to surgery her A1c needs to be improved. Last A1C 9.1% on 05/28/24 previous 10.8%. She has a history of prior bariatric surgery in June of 2015. She is on u200 insulin in an insulin pump along with Parvin. She previously was on U500 insulin and was struggling to achieve control with this. Her insulin was changed to U 200 which has a similar action of U 100 and more recently a once daily basal shot of Tresiba was added due to insulin resistance. She has had a previous infection at an old pump insertion site. She has an upcoming appt with new surgeon to evaluate this area Current medication: Tresiba 46 units Invokana 300 mg daily Mounjaro 12.5 mg weekly (should be getting 15mg from She is on Humalog U 200 insulin in her pump She has a tandem T slim X 2 Dexcom average glucose: 245 14 day continuous glucose monitor report reviewed TIme in ranges: Forty-six % very high (above 250) 35 % high ?(181-250) 18 % in range ?(70-180] 1 % low (69-55) 0 % ?very low (below 54) Interpretation: Running 90 points over desired target, as postprandial excursions Total daily dose of insulin 316 units basal 45% 71 units x2 for u200 142 bolus 55% 87 x2 for u200 174 units Bolus setting Insulin Carbohydrate Ratio (s) 12 AM? to 5 AM?1:3 new 1:2 5 AM? to 9am? 1:1.5 9AM to 9PM 1:2 9PM to 12AM 1.5 Correction Factor / Sensitivity Factor 12 AM? to 5 AM?1:9 new 1:8 5:00am to 9AM 1:4 new 1:3 9am to 9pm 1:5 new 1:4 Glucose target range 00:00 120 05:00 120 09:00 120 21:00 120 Active Insulin Time:?2.5 Has retinopathy last eye exam 10/2023 Has neuropathy on gabapentin. Symptoms: Numbness and tingling no pain or cram ping Has nephropathy on DORITA inhibitor 03/08/2024 eGFR>60 recently seen by Nephrology at [facility] for mild chronic hyponatremia and diabetic kidney disease 03/08/24 35.0 Has HLD on statin 03/08/2024 69 Has peripheral vascular disease status post stent 2023 Sees [facility] on an ongoing basis [facility] Medical History Bunion of great toe Peripheral vascular disease of lower extremity Cellulitis Uncontrolled type 2 diabetes mellitus with hyperglycemia Physical exam Cellulitis of toe of right foot Hospital discharge follow-up Goiter Onychomycosis Vitamin D deficiency T2DM (type 2 diabetes mellitus) Left ankle pain B12 deficiency Left leg pain Acid reflux History of colonic polyps Chronic fatigue Carpal tunnel syndrome Daytime hypersomnia Autoimmune thyroiditis Fibromyalgia Morbid obesity Spondylosis, thoracic, 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 spine without myelopathy History of ulcer disease Sessile colonic polyp Obesity 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 Diabetic nephropathy associated with type 2 diabetes mellitus Diabetic retinopathy associated with type 2 diabetes mellitus Diabetic polyneuropathy associated with type 2 diabetes mellitus Iron (Fe) deficiency anemia History of Graves' disease Lumbar degenerative disc disease Back pain Anxiety and depression GERD (gastroesophageal reflux disease) Asthma Hyperlipidemia Hypertension Diabetes mellitus Polyarthralgia Surgical History History of carpal tunnel surgery of right wrist H/O endoscopy History of cataract extraction History of lumpectomy of left breast History of carpal tunnel surgery of left wrist Hx of section Hx laparoscopic cholecystectomy Hx of esophagogastroduodenoscopy Hx of colonoscopy H/O gastric bypass Family History Father Diabetes Hypertension Mother Diabetes Hypertension Maternal Grandmother Colon cancer Paternal Aunt Cancer of ear Social History Household Members: Family Housing: House Alcohol intake: never Patient Tobacco Use Status: Former Tobacco user Tobacco use type: Cigarette Cigarette Packs Per Day: 1 Cigarettes Per Day: 20.0 Years Smoked: 20 e-Cigarette/Vaping Use: Never Used Second Hand Smoke Exposure: No service: No Current occupational status: disabled Current occupation: right hand dominant Cognitive needs: No Hearing needs: No Vision needs: Yes Female Reproductive History Menstrual Age of Menarche: 14 Physical Exam Vital Signs: Last Vital Signs Pulse 71 07/02/24 08:04 BP 152/76 H 07/02/24 08:31 Pulse Ox 98 07/02/24 08:04 Oxygen Delivery Method Room Air 07/02/24 08:04 BMI result Body Mass Index 26.4 Const Other: Absence of Cushingoid features. Absence of acromegalic features. Neck exam reveals nl size thyroid about 15 gms. No thyroid nodules palpable. Heart S1 S2, Reg R/R. No M/R G. Skin exam reveals absence of vitiligo or acanthosis nigricans. Visual exam of foot performed. No ulcerations or open lesions. No inter digit maceration or fissuring. No onychomycosis, no callouses. Sensation intact to monofilament exam. Vibratory sensation is normal with 128 Hz tuning fork. small bunion left, right foot second toe small amount old blood growing out from nail bed. no redness around toe, no pain no signs of infection Results Reviewed Results Reviewed: Laboratory Last Values Glucose (Clinic) 247 mg/dL (60-115) H 07/02/24 08:07 Assessment & Plan Assessment & Plan (1) Uncontrolled type 2 diabetes mellitus with hyperglycemia: Code(s): E11.65 - Type 2 diabetes mellitus with hyperglycemia Category: Medical Plan: 41-year-old type 2 diabetic with severe insulin resistance, nephropathy followed by Nephrology, retinopathy and neuropathy with longstanding history of poorly controlled diabetes. A1c is coming down. Pump adjustments made today and Tresiba was increased to 56 units She will continue Mounjaro I will check with pharmacy to find out why they are not dispensing the 15 mg Continue Invokana (2) Hypertension: Code(s): I10 - Essential (primary) hypertension Category: Medical Qualifiers: Hypertension type: essential hypertension Qualified Code(s): I10 - Essential (primary) hypertension Plan: BP is elevated today. She has an appointment later today with her application lead and she will discuss blood pressure with him. Coding Level of Care Code Est Pt Level 4 (03575) Complex EM visit Add On G2211 Diagnoses Uncontrolled type 2 diabetes mellitus with hyperglycemia E11.65 Essential hypertension I10 Hypertension type: essential hypertension Time Spent (min) 30 Comment Time spent reviewing labs/provider notes, face to face, chart doc
--- OUTSIDE RECORDS SUMMARY | 2024-07-02 08:01 | XMS_ITS | Clinical Summary ---
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
[2024-07-02 08:04] VITALS: BP 166/86; PULSE 71; O2SAT 98; BMI 26.4
[2024-07-02 08:12] LABS: Glucose, Whole Blood 247 mg/dL (60-115)
[2024-07-02 08:31] VITALS: BP 152/76
== END 2024-07-02 08:25 | disposition home or self-care (01) ==
LOC: HO.ENCR 07:59
PROVIDERS: PCP Internal Medicine; Visit Provider Nurse Practitioner Adult Health
DX: E11.65 Type 2 diabetes mellitus with hyperglycemia (principal); I10 Essential (primary) hypertension
CPT/HCPCS: 99214; G2211

== ENCOUNTER → 2024-07-02 07:58 | Outpatient (BNVA) | payer OTHER, SELFPAY | PROVIDERS: PCP Internal Medicine; Visit Provider Nurse Practitioner Adult Health | DX: E10.65 Type 1 diabetes mellitus with hyperglycemia (principal); E87.1 Hypo-osmolality and hyponatremia; R80.9 Proteinuria, unspecified; I10 Essential (primary) hypertension; Z79.4 Long term (current) use of insulin | CPT/HCPCS: 82947; 99212 ==

== ENCOUNTER 2024-07-02 08:41 | Outpatient (AMB) | payer OTHER, SELFPAY ==
--- OUTSIDE RECORDS SUMMARY | 2024-07-02 08:52 | XMS_ITS | Clinical Summary ---
Author Organization [facility] Facility Address [address] [place] [id number] Care Team Providers Care Paperboard Boxes Estimator Name Role Phone Analilia Chaidez MD Primary Care Provider [phone] Allergies Active Allergy Reactions Criticality Noted Date [...] this topic Insurance Medicaid Medicaid Care Teams Paperboard Boxes Estimator Relationship Specialty Start Date End Date Analilia Chaidez MD [address] [place], [place] PCP - General 03/06/20
[2024-07-02 09:26] VITALS: BP 140/74; BMI 26.4
--- NOTE | 2024-07-02 09:26 | HO.NEPHOV_ITS ---
Vital Signs 07/02/24 09:26 Height 5 ft 9 in Weight 179 lb BMI 26.4 BP 140/74 H Blood Pressure Location Rt brachial Position Sitting Intake Visit Reasons: Proteinuria/ Conf Residential Collections Required: Yes Residential Collections Name: [id number] Bria Accompanied by: Self / Same As Patient Allergies adhesive tape [ADHESIVE TAPE] Allergy (Intermediate, Verified 07/02/24 09:28) RASH pioglitazone [From ACTOS] Allergy (Intermediate, Verified 07/02/24 09:28) facial edema,rash latex Allergy (Mild, Verified 07/02/24 09:28) Rash Medication List - Last Reconciled 07/02/24 by Kwasi Hollis MD acetaminophen (Tylenol Extra Strength) 500 mg PO Q6H PRN acetone (urine) test (Ketone Urine Test strips) As directed glucose over 300, illness, nausea, vomiting t.i.d. albuterol sulfate 90 mcg/actuation 1 inh inhalation QID PRN albuterol sulfate 2.5 mg (3 mL) inhalation QID PRN 25 days artifi.tears(hypromellose)(PF) 0.3% 1 drp ophthalmic-Right Q4-6H PRN ascorbate calcium (vitamin C) 500 mg PO DAILY blood pressure kit-extra large As directed blood sugar diagnostic (FreeStyle Lite Strips) TEST 4 TIMES DAILY blood-glucose meter (FreeStyle Lite Meter kit) TEST 4 TIMES DAILY buspirone 15 mg PO TID canagliflozin (Invokana) 300 mg PO DAILY cane As directed cetirizine (Zyrtec) 10 mg PO DAILY 90 days cholecalciferol (vitamin D3) 50 mcg PO DAILY 90 days citalopram 10 mg PO DAILY cyanocobalamin (vitamin B-12) 1,000 mcg IM Q4W 4 weeks cyclobenzaprine 10 mg PO TID PRN diclofenac sodium 75 mg PO BID docusate sodium 100 mg PO DAILY ergocalciferol (vitamin D2) 1,250 mcg PO QWEEK 90 days escitalopram oxalate 5 mg PO DAILY ferrous sulfate 325 mg PO DAILY fluticasone propionate 50 mcg/actuation (Flonase Allergy Relief) 1 spray intranasal DAILY 30 days furosemide 20 mg PO BID 90 days gabapentin 100 mg PO TID 30 days glucagon 3 mg/actuation (Baqsimi) 3 mg intranasal .prn PRN 30 days MDD 6 mg [glucose tablets 15 grams PO .prn PRN 30 days MDD 12 tablets] hydrocortisone 2.5% (Proctozone-HC) 1 appl [place] BID PRN hydrocortisone-pramoxine 1-1 % (Proctofoam HC) 1 appl MN DAILY hydroxyzine HCl 1 - 2 tabs PO QID ibuprofen 400 mg PO TID PRN insulin degludec (Tresiba FlexTouch U-200 insulin) 56 units (0.28 mL) subcut DAILY 30 days insulin lispro (Humalog KwikPen U-200 Insulin) up to 425 units per day via pump subcutaneously use as directed; 30 days insulin syringe-needle U-100 (Advocate Syringes) Use 1 needle once a month lidocaine 5% (Lidoderm) 1 patch topical DAILY PRN MDD remove after 12 hours lisinopril 20 mg PO DAILY methylcellulose (laxative) (Citrucel Sugar Free oral powder) 2 grams PO DAILY PRN montelukast 10 mg PO DAILY 90 days nebulizers (AeroEAusraipse II Nebulizer) As directed nortriptyline 10 mg PO BEDTIME ondansetron 4 mg PO Q6-8H PRN oxycodone-acetaminophen 5-325 mg 1 tab PO Q8H PRN 30 days pantoprazole 40 mg PO DAILY 30 days pen needle, diabetic As directed qid prn pump failure pen needle, diabetic (Comfort EZ Pen [place]) As directed once daily, prn pump failure can increase to qid prochlorperazine maleate 10 mg PO TID PRN rosuvastatin 40 mg PO DAILY 90 days Shower Chair As directed simethicone (Gas Relief Extra Strength) 125 mg PO TID-QID PRN [skin tac apply to skin at pump site and sensor site after cleansing with alcohol.Insert pump cannula/sensor after skin tac has allowed to dry. Use on pump every three days, every 10 at sensor site.] syringe with needle (Kybernesis Luer Slip Syringe-Needle) For vitamin B12 injection syringe with needle, safety (BD Safety-Jone Detachable Needle) Use 1 syringe once a month thiamine HCl (vitamin B1) 1 tab PO DAILY tirzepatide (Mounjaro) 15 mg (0.6 mL) subcut QWEEK 28 days tizanidine 4 mg PO Q8H PRN 30 days valacyclovir (Valtrex) 1,000 mg PO TID vitamin A 1 cap PO DAILY HPI Comments Details: 49-year-old woman with a history of diabetes mellitus and hypertension referred for hyponatremia. Upon reviewing the labs it appears that she has had chronic hyponatremia for at least 5 or 6 years. Serum sodium has been in the low 130s. The lowest recorded reading was 129 back in 2019. She is on low-dose of citalopram. She admits to drinking more than 10 bottles of water a day. She has undergone gastric bypass surgery and since then she has been drinking plenty of water. She denies any alcohol intake. At present she has no history of headache nausea or vomiting. No chest pain No polyuria polydipsia. No diarrhea constipation. No edema. No palpitations no rash no fever. 07/02/24 Here for follow up No specific complaints Recent A1C is about 9% [facility] Medical History Bunion of great toe Peripheral vascular disease of lower extremity Cellulitis Uncontrolled type 2 diabetes mellitus with hyperglycemia Physical exam Cellulitis of toe of right foot Hospital discharge follow-up Goiter Onychomycosis Vitamin D deficiency T2DM (type 2 diabetes mellitus) Left ankle pain B12 deficiency Left leg pain Acid reflux History of colonic polyps Chronic fatigue Carpal tunnel syndrome Daytime hypersomnia Autoimmune thyroiditis Fibromyalgia Morbid obesity Spondylosis, thoracic, 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 spine without myelopathy History of ulcer disease Sessile colonic polyp Obesity 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 Diabetic nephropathy associated with type 2 diabetes mellitus Diabetic retinopathy associated with type 2 diabetes mellitus Diabetic polyneuropathy associated with type 2 diabetes mellitus Iron (Fe) deficiency anemia History of Graves' disease Lumbar degenerative disc disease Back pain Anxiety and depression GERD (gastroesophageal reflux disease) Asthma Hyperlipidemia Hypertension Diabetes mellitus Polyarthralgia Surgical History History of carpal tunnel surgery of right wrist H/O endoscopy History of cataract extraction History of lumpectomy of left breast History of carpal tunnel surgery of left wrist Hx of section Hx laparoscopic cholecystectomy Hx of esophagogastroduodenoscopy Hx of colonoscopy H/O gastric bypass Family History Father Diabetes Hypertension Mother Diabetes Hypertension Maternal Grandmother Colon cancer Paternal Aunt Cancer of ear Social History Household Members: Family Housing: House Alcohol intake: never Patient Tobacco Use Status: Former Tobacco user Tobacco use type: Cigarette Cigarette Packs Per Day: 1 Cigarettes Per Day: 20.0 Years Smoked: 20 e-Cigarette/Vaping Use: Never Used Second Hand Smoke Exposure: No service: No Current occupational status: disabled Current occupation: right hand dominant Cognitive needs: No Hearing needs: No Vision needs: Yes Female Reproductive History Menstrual Age of Menarche: 14 Physical Exam Vital Signs: Last Vital Signs BP 140/74 H 07/02/24 09:26 BMI result Body Mass Index 26.4 Comfortable Neck supple no JVD. Lungs entry equal no rales. Heart S1-S2 heard no gallop or rub. Abdomen soft nontender. Neuro alert awake oriented. No asterixis. Extremities no edema. Results Reviewed Nephrology Results: Hgb 11.9 g/dl (12.0-16.0) L 07/01/24 WBC 8.1 X10*3/uL (4.8-10.8) 07/01/24 Plt Count 286 X10*3/uL (160-400) 07/01/24 Sodium 132 mmol/L (135-145) L 07/01/24 Potassium 4.4 mmol/L (3.3-5.1) 07/01/24 Chloride 99 mmol/L (96-108) 07/01/24 Carbon Dioxide 25 mmol/L (22-29) 07/01/24 BUN 14 mg/dL (9-16) 07/01/24 Creatinine 0.66 mg/dL (0.5-1.4) 07/01/24 Calcium 9.6 mg/dL (8.4-10.2) 07/01/24 Urine Protein Negative mg/dL (Neg-Trace) 07/01/24 Urine Creatinine 77.73 mg/dL 07/01/24 Assessment & Plan Assessment & Plan (1) Hyponatremia: Code(s): E87.1 - Hypo-osmolality and hyponatremia Category: Medical (2) Microalbuminuria: Code(s): R80.9 - Proteinuria, unspecified Category: Medical Plan Anitha has chronic asymptomatic mild hyponatremia. Clinically she appears euvolemic. Serum sodium is 132 Encouraged to limit free water intake Hypertension Blood pressure is suboptimal but better controlled Increase lisinopril from 10 mg up to 20 mg a day. However it is unclear if she is taking 10 mg or 20 mg at this time. Microalbuminuria in the setting of diabetes mellitus. Urine protein creatinine ratio is decreased. Continue DORITA inhibition Hypovitaminosis D As per her medication list she is on both vitamin D2 and D3 however levels are low. I suspect there has been issues with compliance. There seems to be a confusion with the medications. I have asked her to bring all her medications. I shall make adjustments after reviewing the medications. She has iron deficiency with mild anemia she will benefit from iron supplementation again I will start iron supplementation after reviewing her medications Orders: Orders Basic Metabolic Panel 4 Months R80.9 - Proteinuria, unspecified Coding Level of Care Code Est Pt Level 4 (41543) Diagnoses Hyponatremia E87.1 Microalbuminuria R80.9
== END 2024-07-02 09:47 | disposition home or self-care (01) ==
LOC: HO.HKA 08:42
PROVIDERS: PCP Internal Medicine; Visit Provider Internal Medicine Hypertension Specialist
DX: E87.1 Hypo-osmolality and hyponatremia (principal); R80.9 Proteinuria, unspecified
CPT/HCPCS: 99214

== ENCOUNTER 2024-07-23 09:24 | Day surgery (SDC) | payer OTHER, SELFPAY ==
[2024-07-21 13:16] VITALS: BMI 27.0
--- NOTE | 2024-07-22 10:07 | HO.ANESPROP2 ---
Documented by User: Tanya Hankins NP 07/22/24 10:13 HPI - Anesthesia Eval Consult details Narrative: 49yo F for Bilateral L3-L4-DR L5 Medial Branch Radiofrequency AB Recent [facility] [place] for chronic hyponatremia: chronic asymptomatic mild hyponatremia. Clinically she appears euvolemic. Serum sodium is 132 Encouraged to limit free water intake Anesthesia Pre-Procedure Meds Is the patient on any of the following meds?: GLP1/DPP4 and SGLT2 Inhib PMFSH Active Problems Active Problems: All Active Problems Low serum ferritin level (Acute) Myofascial pain syndrome (Acute) Allergic rhinitis (Acute) Bunion of great toe (Acute) Peripheral vascular disease of lower extremity (Acute) Sebaceous cyst (Acute) Spondylosis of lumbosacral region without myelopathy or radiculopathy (Acute) Carbuncle (Acute) Sleep difficulties (Acute) Restless leg syndrome (Acute) Anemia (Acute) Daytime somnolence (Acute) Microalbuminuria (Acute) Abdominal wall abscess (Acute) Gastric bypass status for obesity (Acute) Uncontrolled type 2 diabetes mellitus with hyperglycemia (Acute) Pernicious anemia (Acute) Chest pain (Acute) Essential hypertension (Acute) Moderate major depression (Acute) Hypovitaminosis D (Acute) Pain of left clavicle (Acute) Yeast infection involving the vagina and surrounding area (Acute) History of uterine fibroid (Acute) Hyponatremia (Acute) control counseling (Acute) Cervical cancer screening (Acute) Perimenopausal symptoms (Acute) History of irregular menstrual bleeding (Acute) Calcific tendonitis of left shoulder (Acute) Neck pain (Acute) Bursitis of left shoulder (Acute) Lumbar pain (Acute) Vitamin A deficiency (Acute) Thiamine deficiency (Acute) Daytime somnolence (Acute) Abnormal abdominal ultrasound (Acute) Missed menses (Acute) Left shoulder pain (Acute) Bloating (Acute) RUQ abdominal pain (Acute) Iron (Fe) deficiency anemia (Acute) Hemorrhoids (Acute) Hyperlipidemia LDL goal <70 (Acute) Left sided sciatica (Acute) Left leg pain (Acute) Microalbuminuria (Acute) Physical exam (Acute) Cellulitis of toe of right foot (Acute) Hospital discharge follow-up (Acute) Goiter (Acute) Onychomycosis (Acute) Obesity (BMI 30.0-34.9) (Acute) Intestinal malabsorption following gastrectomy (Acute) Chronic diarrhea (Acute) Fibromyalgia (Acute) Carpal tunnel syndrome of right wrist (Acute) Schatzki's ring (Acute) Hemorrhoids (Acute) Hiatal hernia (Acute) Nasal discharge (Acute) Excessive daytime sleepiness (Acute) COVID-19 (Acute) COVID-19 (Acute) Vitamin D deficiency (Acute) T2DM (type 2 diabetes mellitus) (Acute) Left ankle pain (Acute) B12 deficiency (Acute) Left leg pain (Acute) Acid reflux (Acute) History of colonic polyps (Acute) Chronic fatigue (Acute) Carpal tunnel syndrome (Acute) Daytime hypersomnia (Acute) Autoimmune thyroiditis (Acute) Fibromyalgia (Acute) Spondylosis, thoracic, without myelopathy (Acute) Spondylosis of lumbosacral spine without myelopathy (Acute) Sessile colonic polyp (Acute) Obesity (Acute) Tracee's disease (Acute) long-term (current) use of insulin (Acute) Diabetic nephropathy associated with type 2 diabetes mellitus (Acute) Diabetic retinopathy associated with type 2 diabetes mellitus (Acute) Diabetic polyneuropathy associated with type 2 diabetes mellitus (Acute) GERD (gastroesophageal reflux disease) (Acute) Asthma (Acute) Hyperlipidemia (Acute) Hypertension (Acute) Polyarthralgia (Acute) Past Medical History Medical History Bunion of great toe Peripheral vascular disease of lower extremity Cellulitis Uncontrolled type 2 diabetes mellitus with hyperglycemia Physical exam Cellulitis of toe of right foot Hospital discharge follow-up Goiter Onychomycosis Vitamin D deficiency T2DM (type 2 diabetes mellitus) Left ankle pain B12 deficiency Left leg pain Acid reflux History of colonic polyps Chronic fatigue Carpal tunnel syndrome Daytime hypersomnia Autoimmune thyroiditis Fibromyalgia Morbid obesity Spondylosis, thoracic, 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 spine without myelopathy History of ulcer disease Sessile colonic polyp Obesity 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 Diabetic nephropathy associated with type 2 diabetes mellitus Diabetic retinopathy associated with type 2 diabetes mellitus Diabetic polyneuropathy associated with type 2 diabetes mellitus Iron (Fe) deficiency anemia History of Graves' disease Lumbar degenerative disc disease Back pain Anxiety and depression GERD (gastroesophageal reflux disease) Asthma Hyperlipidemia Hypertension Diabetes mellitus Polyarthralgia Family History Family History Father Diabetes Hypertension Mother Diabetes Hypertension Maternal Grandmother Colon cancer Paternal Aunt Cancer of ear Family history of problems with anesthesia: No Surgical History Surgical History History of carpal tunnel surgery of right wrist H/O endoscopy History of cataract extraction History of lumpectomy of left breast History of carpal tunnel surgery of left wrist Hx of section Hx laparoscopic cholecystectomy Hx of esophagogastroduodenoscopy Hx of colonoscopy H/O gastric bypass History of Problems with Anesthesia: No Social History Social History Household Members: Family Housing: House Are you a primary urgent care physician assistant to a significant other at home: No Do you presently have visiting nurse or other home services: No Alcohol intake: never Patient Tobacco Use Status: Former Tobacco user Tobacco use type: Cigarette Cigarette Packs Per Day: 1 Cigarettes Per Day: 20.0 Years Smoked: 20 e-Cigarette/Vaping Use: Never Used Second Hand Smoke Exposure: No Use of substances other than those prescribed or required for medical reasons: No Have you been hit, kicked, punched, or otherwise hurt by someone within the past year? If so, by whom?: No Are you DNR?: No Advance Directives: No Advance Directives Information Provided: Yes Patient : No FDLMP: 07/11/2024 : No Poor oral hygiene: No service: No Current occupational status: disabled Current occupation: right hand dominant Cognitive needs: No Hearing needs: No Vision needs: Yes Meds Allergies Allergy/AdvReac Type Severity Reaction Status Date / Time adhesive tape [ADHESIVE TAPE] Allergy Intermediate RASH Verified 07/23/24 10:10 pioglitazone [From ACTOS] Allergy Intermediate facial Verified 07/23/24 10:10 edema,rash latex Allergy Mild Rash Verified 07/23/24 10:10 Home Medications ?Medication ?Instructions ?Recorded ?Confirmed ?Last Taken ?Type artifi.tears(hypromellose)(PF) 0.3 1 drp ophthalmic-Right Q4-6H PRN 12/10/19 07/02/24 Unknown History % eye drops Dry Eyes diclofenac sodium 75 mg 75 mg PO BID 12/10/19 07/02/24 Unknown History tablet,delayed release docusate sodium 100 mg capsule 100 mg PO DAILY 12/10/19 07/02/24 Unknown History nortriptyline 10 mg capsule 10 mg PO BEDTIME 12/10/19 07/02/24 Unknown History hydroxyzine HCl 25 mg tablet 1 - 2 tab PO QID 12/31/19 07/02/24 Unknown History thiamine HCl (vitamin B1) 100 mg 1 tab PO DAILY 12/31/19 07/02/24 Unknown History tablet vitamin A 3,000 mcg (10,000 unit) 1 cap PO DAILY 12/31/19 07/02/24 Unknown History capsule citalopram 10 mg tablet 10 mg PO DAILY 08/28/22 07/02/24 Unknown History buspirone 15 mg tablet 15 mg PO TID 01/02/23 07/02/24 Unknown History escitalopram oxalate 5 mg tablet 5 mg PO DAILY 01/09/24 07/02/24 Unknown History Exam Height,Weight and Vital Signs: Height 5 ft 9 in Weight 83.007 kg Pertinent Lab Results Pertinent Lab Results: Laboratory Tests 07/01/24 08:52 WBC 8.1 Hgb 11.9 L Hct 36.7 L Plt Count 286 Sodium 132 L Potassium 4.4 Chloride 99 Carbon Dioxide 25 BUN 14 Creatinine 0.66 A1C = 9.1 Narrative Narrative: EKG 06/2024 Vent. Rate : 070 BPM Atrial Rate : 070 BPM P-R Int : 164 ms QRS Dur : 090 ms QT Int : 392 ms P-R-T Axes : 054 061 042 degrees QTc Int : 423 ms Normal sinus rhythm with sinus arrhythmia Normal ECG When compared with ECG of 22-JAN-2023 10:30, No significant change was found Assessment and Plan Assessment Anesthesia Assessment: Chart Reviewed Final Anesthetic Review Family History of Problems with Anesthesia: No History of Problems with Anesthesia: No Documented by User: Juan Dooley MD 07/23/24 11:24 PMFSH Past Medical History Medical History Bunion of great toe Peripheral vascular disease of lower extremity Cellulitis Uncontrolled type 2 diabetes mellitus with hyperglycemia Physical exam Cellulitis of toe of right foot Hospital discharge follow-up Goiter Onychomycosis Vitamin D deficiency T2DM (type 2 diabetes mellitus) Left ankle pain B12 deficiency Left leg pain Acid reflux History of colonic polyps Chronic fatigue Carpal tunnel syndrome Daytime hypersomnia Autoimmune thyroiditis Fibromyalgia Morbid obesity Spondylosis, thoracic, 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 spine without myelopathy History of ulcer disease Sessile colonic polyp Obesity 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 Diabetic nephropathy associated with type 2 diabetes mellitus Diabetic retinopathy associated with type 2 diabetes mellitus Diabetic polyneuropathy associated with type 2 diabetes mellitus Iron (Fe) deficiency anemia History of Graves' disease Lumbar degenerative disc disease Back pain Anxiety and depression GERD (gastroesophageal reflux disease) Asthma Hyperlipidemia Hypertension Diabetes mellitus Polyarthralgia Patient : No Family History Family History Father Diabetes Hypertension Mother Diabetes Hypertension Maternal Grandmother Colon cancer Paternal Aunt Cancer of ear Surgical History Surgical History History of carpal tunnel surgery of right wrist H/O endoscopy History of cataract extraction History of lumpectomy of left breast History of carpal tunnel surgery of left wrist Hx of section Hx laparoscopic cholecystectomy Hx of esophagogastroduodenoscopy Hx of colonoscopy H/O gastric bypass Social History Social History Household Members: Family Housing: House Are you a primary urgent care physician assistant to a significant other at home: No Do you presently have visiting nurse or other home services: No Alcohol intake: never Patient Tobacco Use Status: Former Tobacco user Tobacco use type: Cigarette Cigarette Packs Per Day: 1 Cigarettes Per Day: 20.0 Years Smoked: 20 e-Cigarette/Vaping Use: Never Used Second Hand Smoke Exposure: No Use of substances other than those prescribed or required for medical reasons: No Have you been hit, kicked, punched, or otherwise hurt by someone within the past year? If so, by whom?: No Are you DNR?: No Advance Directives: No Advance Directives Information Provided: Yes Patient : No FDLMP: 07/11/2024 : No Poor oral hygiene: No service: No Current occupational status: disabled Current occupation: right hand dominant Cognitive needs: No Hearing needs: No Vision needs: Yes Meds Allergies Allergy/AdvReac Type Severity Reaction Status Date / Time adhesive tape [ADHESIVE TAPE] Allergy Intermediate RASH Verified 07/23/24 10:10 pioglitazone [From ACTOS] Allergy Intermediate facial Verified 07/23/24 10:10 edema,rash latex Allergy Mild Rash Verified 07/23/24 10:10 Home Medications ?Medication ?Instructions ?Recorded ?Confirmed ?Last Taken ?Type artifi.tears(hypromellose)(PF) 0.3 1 drp ophthalmic-Right Q4-6H PRN 12/10/19 07/02/24 Unknown History % eye drops Dry Eyes diclofenac sodium 75 mg 75 mg PO BID 12/10/19 07/02/24 Unknown History tablet,delayed release docusate sodium 100 mg capsule 100 mg PO DAILY 12/10/19 07/02/24 Unknown History nortriptyline 10 mg capsule 10 mg PO BEDTIME 12/10/19 07/02/24 Unknown History hydroxyzine HCl 25 mg tablet 1 - 2 tab PO QID 12/31/19 07/02/24 Unknown History thiamine HCl (vitamin B1) 100 mg 1 tab PO DAILY 12/31/19 07/02/24 Unknown History tablet vitamin A 3,000 mcg (10,000 unit) 1 cap PO DAILY 12/31/19 07/02/24 Unknown History capsule citalopram 10 mg tablet 10 mg PO DAILY 08/28/22 07/02/24 Unknown History buspirone 15 mg tablet 15 mg PO TID 01/02/23 07/02/24 Unknown History escitalopram oxalate 5 mg tablet 5 mg PO DAILY 01/09/24 07/02/24 Unknown History Exam Airway Mallampati Class: I TM Dist: <=3cm Neck ROM: Full Loose/Missing/Broken Teeth: No Heart: ok Lungs: ok Assessment and Plan Assessment Anesthesia Assessment: Anesthesia Plan Discussed Final Anesthetic Review NPO: Yes ASA Class: III Final Preanesthetic Review: No Changes in Pt Med Stat, Meds/Allgs Chart Reviewed, Consent Obtained/Reviewed and Anes Risks/Benef Reviewed Patient Risk: Intermediate Procedure Risk: Intermediate Anesthetic Plan Anesthetic Plan: MAC: and Agree w/ Assess. and Plan Disposition: Standard PACU
--- NOTE | ~2024-07-23 | FL_ITS ---
EXAMINATION: FL GUIDANCE ONLY HISTORY: RFA L3,4,5 BILATERAL COMPARISON: None available. TECHNIQUE: Fluoroscopy time: 57.8 seconds. Cumulative Dose: 16.411 mGy. DAP: 7.1385 mGym2 Images: 4. FINDINGS: Images demonstrate needles in the regions of the bilateral L3-4, L4-5, and L5-S1 facet joints. 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 FL/FL guidance in OR IMPRESSION: Fluoroscopy during procedure. Please see procedure report for additional information. Electronically signed by: Parmjit Horne MD 07/23/2024 02:49 PM EDT
[2024-07-23 10:08] LABS: UPreg QC Valid YES; Urine Pregnancy NEGATIVE (NEGATIVE)
[2024-07-23 10:12] VITALS: BP 137/74; PULSE 70; RESP 14; TEMP 36.4; O2SAT 100; BMI 26.4
[2024-07-23] MEDS: Lactated Ringers 1,000 ML 100 ML IVCONT (10:16)
[2024-07-23 10:26] LABS: Glucose, Whole Blood 297 mg/dL (60-115)
--- NOTE | 2024-07-23 10:48 | PC.NURSE ---
Pt with FBG - 297mg/dl at 12:30am. Per pt. she did not utilize Tresiba/insulin last night pending surgery. Pt arrived to pre op without insulin pump worn daily. States removed insulin pump pending surgery. Educated pt regarding insulin pump and managing BG. Pt verbalized understanding. RN d/w Dr. Tristan. Team agreed w/plan.
[2024-07-23] MEDS: Insulin Lispro 100 UNIT/ML 3 ML VIAL 10 UNIT SUBCUT (10:59)
--- NOTE | 2024-07-23 12:12 | MHC.SHP ---
Pre-Procedural Eval Section A - 24 Hr Update-Section A only Date of Service: 07/23/24 The patient is an INPATIENT: No Changes since office visit: Yes Patient answered all questions The patient has been examined within 24 hours of the surgical procedure. The History & Physical has been completed within 30 days and I have reviewed it.: No Section B - Complete if H&P > 30 days Chief Complaint: Spondylosis without myelopathy or radiculopathy, Details of Present Illness: As above Relevant Social History: None Present Medications: see Short Stay Collaborative assessment Medical History: Significant History History of Previous Operations: No relevant previous surgery Allergies: Allergies Allergy/AdvReac Type Severity Reaction Status Date / Time adhesive tape [ADHESIVE TAPE] Allergy Intermediate RASH Verified 07/23/24 10:10 pioglitazone [From ACTOS] Allergy Intermediate facial Verified 07/23/24 10:10 edema,rash latex Allergy Mild Rash Verified 07/23/24 10:10 Review of Systems Sugical H&P ROS: Negative: Cardiovascular, Respiratory, Neurological, Psychiatric, Hem-Onc, Allergic/Immunologic, Gastrointestinal, Genitourinary, Integumentary, Endocrine and Eyes/Ears/Nose/Throat and Yes, Specify: Constitution (Morbid obesity) and Musculoskeletal (Spondylosis lumbar) Exam Surgical H&P Exam: Normal: HEENT, Normal: Heart, Normal: Lungs, Normal: Extremities, Normal: Abdomen, Normal: Skin and Normal: Neurological Plan Diagnosis/Plan: Unchanged I have reviewed the history and physical and performed a pertinent physical examination on my patient. No changes have occurred unless specified. Time Spent With Patient Time: Total time managing care of this patient today ____ minutes.
--- NOTE | 2024-07-23 13:08 | PM.OP ---
Brief Operative Note Date of Service: 07/23/24 Pre-op diagnosis: Spondylosis lumbar without myelopathy or radiculopathy Post-op diagnosis: same Procedure: Radiofrequency ablation of medial branches of L3, L4, dorsal ramus L5 bilateral. Implants: None Surgeon: Poli Tristan MD Anesthesia: MAC Was an Debone Processing Supervisor used for this Procedure?: No Estimated blood loss (mL): 2 Condition: stable Disposition: PACU
--- NOTE | 2024-07-23 13:11 | P.OP_ITS ---
Operative Note Operative Note Date of Service: 07/23/24 Narrative: Radiofrequency ablation of medial branches of L3, L4, dorsal ramus L5 bilateral. Anitha is very pleasant 49 years old [place]ish-speaking female who is suffering from spondylosis of lumbar spine without myelopathy or radiculopathy. She has chronic intractable lower back pain, she received diagnostic medial branch block with significant pain relief more than 80%. She came today to the operating room to receive radiofrequency ablation of the medial branches as above. She was explained informed consent, risks and benefits were carefully explained using help from a hospital spanish interpreter. The patient was taken to the operating room where she was positioned prone on the operating table. ASA monitors were applied and patient was minimally sedated. Time-out was performed delineating name and date of of the patient allergies of the patient nature of the procedure and need for prophylactic. The lower back of the patient was prepped with ChloraPrep and draped with sterile self adhesive utility towels. C-arm was brought over the operating field and sq picture of the L4, L5 and S1 vertebra were demonstrated on the screen. Point of interest were delineated as confluence of the superior articular process of L4 vertebra with transfer process of L4 vertebra bilaterally, as well as confluence of the superior articular process of L5 vertebra with corresponding transfer process of L5 vertebra bilaterally, as well as confluence of the superior articular process of S1 vertebra with sacral bilaterally. The projection of the point of interest to the skin was injected with small amount of lidocaine 2% mixed with ropivacaine 0.5% one-to-one. After that 18 gauge Avanos thigned radiofrequency cannulas were inserted through the skin wheals and it was advanced to the points of interest in tunnel vision fas hion. When the tip of the needle gently contacted the bone at the point of interest the motor testing was performed during which patient did not report any muscle contractures or movements on the thighs, lower leg, feet or toes. After that each of the cannula was injected with small amount of local anesthetic lidocaine 2% mixed with ropivacaine 0.5% one-to-one with the addition of trace amount of triamcinolone. We waited 90 seconds and after that energy application was performed for 90 seconds at 89 degrees centigrade. The patient tolerated the procedure well. Sterile Band-Aids were applied after cannulas removal. The patient was transferred stable to PACU.
[2024-07-23 13:14] VITALS: BP 120/59; PULSE 66; RESP 18; TEMP 36.9; O2SAT 99
[2024-07-23 13:29] VITALS: BP 143/66; PULSE 70; RESP 18; TEMP 36.3; O2SAT 100
== END 2024-07-23 14:11 | disposition home or self-care (01) ==
PROVIDERS: Nurse Practitioner; PCP Internal Medicine; Visit Provider Anesthesiology
PROC: (CPT 64635; principal; 2024-07-23 10:40)
DX: M47.817 Spondylosis without myelopathy or radiculopathy, lumbosacral region (principal); M79.7 Fibromyalgia; I73.9 Peripheral vascular disease, unspecified; I10 Essential (primary) hypertension; E78.5 Hyperlipidemia, unspecified; E11.21 Type 2 diabetes mellitus with diabetic nephropathy; E11.42 Type 2 diabetes mellitus with diabetic polyneuropathy; E11.65 Type 2 diabetes mellitus with hyperglycemia; E11.319 Type 2 diabetes mellitus with unspecified diabetic retinopathy without macular edema; E55.9 Vitamin D deficiency, unspecified; D50.9 Iron deficiency anemia, unspecified; E06.3 Autoimmune thyroiditis; E87.1 Hypo-osmolality and hyponatremia; F41.9 Anxiety disorder, unspecified; R53.82 Chronic fatigue, unspecified; J45.909 Unspecified asthma, uncomplicated; L23.1 Allergic contact dermatitis due to adhesives; Z91.040 Latex allergy status; Z88.8 Allergy status to other drugs, medicaments and biological substances; Z87.891 Personal history of nicotine dependence; Z98.890 Other specified postprocedural states; Z98.84 Bariatric surgery status; Z79.899 Other long term (current) drug therapy
CPT/HCPCS: 64635; 64636 ×2; 81025; 82947; J2003; J2250; J2405; J2795; J3010; J3301

== ENCOUNTER → 2024-07-23 09:24 | Outpatient (BNV) | payer OTHER, SELFPAY | PROVIDERS: PCP Internal Medicine; Visit Provider Anesthesiology | DX: M47.816 Spondylosis without myelopathy or radiculopathy, lumbar region (principal) | CPT/HCPCS: 64493; 64494 ==

== ENCOUNTER → 2024-08-12 11:08 | Outpatient (BNV) | payer OTHER, SELFPAY | PROVIDERS: PCP Internal Medicine; Referring Provider Internal Medicine; Visit Provider Nurse Practitioner Family | DX: D64.9 Anemia, unspecified (principal) | CPT/HCPCS: 99204 ==

== ENCOUNTER 2024-08-18 08:31 | Outpatient (AMB) | payer OTHER, SELFPAY ==
--- OUTSIDE RECORDS SUMMARY | 2024-08-18 08:50 | XMS_ITS | Clinical Summary ---
Author Organization [facility] Address [address] [place] [address] Phone Care Team Providers Care Coating Line Worker Name Role Phone Analilia Schumacher MD Primary Care Provider [phone] Social History Tobacco Use Types Packs/Day Years Used Date Smoking Tobacco: Never Assessed Comments Unknown Sex and Gender Information Value Date Recorded Sex Assigned at Not on file Legal Sex Female 10:48 PM EST Gender Identity Not on file Sexual Orientation Not on file Plan of Treatment Upcoming Encounters Date Type Department Care Team ([facility] Contact Info) Description 10/07/2024 9:30 AM EDT Consult Orthopedic Surgery [place] [id number] [phone] Kali Artis, DPM [address] [address] Health Maintenance Due Date Last Done Comments Breast Cancer Screening 1976 DTaP,Tdap,and Td Vaccines (1 - Tdap) 1995 Cervical Cancer Screening: P ap Smear 1997 COVID-19 Vaccine (2023-2 5 season) 2023 Colorectal Cancer Screening: Colonoscopy 07/15/2024 Depression Screening 07/15/2024 HIV Screening 07/15/2024 Hepatitis C Screening 07/15/2024 Social Influencers of Health Screening 07/15/2024 Influenza Vaccine (Season Ended) 2024 Hepatitis A Vaccines Aged Out 02/19/2011, 10/26/2010, 08/20/2010 No longer eligible based on patient's age to complete this topic Hepatitis B Vaccines Completed 02/19/2011, 10/26/2010, 08/20/2010 HIB Vaccines Aged Out No longer eligi ble based on patient's age to complete this topic HPV Vaccines Aged Out No longer eligi ble based on patient's age to complete this topic IPV Vaccines Aged Out No longer eligi ble based on patient's age to complete this topic MMR Vaccines Aged Out No longer eligi ble based on patient's age to complete this topic Meningococcal ACWY Vaccine Aged Out N o longer eligible based on patient's age to complete this topic Meningococcal B Vaccine Aged Out No l onger eligible based on patient's age to complete this topic Pneumococcal Vaccine: Pediatrics (0 to 5 Years) and At-Risk Patients (6 to 64 Years) Aged Out No longer eligible b ased on patient's age to complete this topic RSV Immunization Patients Under 20 months Aged Out No longer eligible b ased on patient's age to complete this topic Varicella Vaccines Aged Out No longer eligible based on patient's age to complete this topic Insurance [place]ICA[place] - [place] [employer] Care Teams Coating Line Worker Relationship Specialty Start Date End Date Analilia Schumacher MD [address] [place] [address] , [address] Physician [facility] D[facility]A: [facility] [place], [place] PCP - General Internal Medicine 12/22/17
--- NOTE | 2024-08-18 09:00 | A.OFFVIS_ITS ---
Vital Signs 08/18/24 09:01 Weight 174 lb BP 156/72 H Blood Pressure Location Lt brachial Position Sitting Respiration 18 Pulse 86 Pulse Source Pulse Oximeter Pulse Oximetry (%) 100 Oxygen Delivery Method Room Air Intake Visit Reasons: Trigger Point Inj. Quality And Reliability Engineer Required: No Counter Server: Counter Server Present Accompanied by: von arroyo Allergies adhesive tape (ADHESIVE TAPE) Allergy (Intermediate, Verified 08/18/24 09:03) RASH pioglitazone (From ACTOS) Allergy (Intermediate, Verified 08/18/24 09:03) facial edema,rash latex Allergy (Mild, Verified 08/18/24 09:03) Rash HPI Comments Details: Anitha is back in my office after the radiofrequency ablation of bilateral L3- L4 dorsal ramus L5 medial branches. She reports good pain relief at least 60% pain improvement after the procedure, she reports better mobility, better activities of daily living better social interactions. On the background of improved lower back pain her right-sided pain in the trapezius and latissimus dorsi muscles go to the foreground. She is here to requests me to perform trigger point injections in this muscles. I perform the procedure see the description of the procedure as below. 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 without myelopathy History of ulcer disease Sessile colonic polyp Obesity Tracee's disease 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 Diabetic nephropathy associated with type 2 diabetes mellitus Diabetic retinopathy associated with type 2 diabetes mellitus Diabetic polyneuropathy associated with type 2 diabetes mellitus Iron (Fe) deficiency anemia History of Graves' disease Lumbar degenerative disc disease Back pain Anxiety and depression GERD (gastroesophageal reflux disease) Asthma Hyperlipidemia Hypertension Diabetes mellitus Polyarthralgia Surgical History History of carpal tunnel surgery of right wrist H/O endoscopy History of cataract extraction History of lumpectomy of left breast History of carpal tunnel surgery of left wrist Hx of section Hx laparoscopic cholecystectomy Hx of esophagogastroduodenoscopy Hx of colonoscopy H/O gastric bypass Family History Father Diabetes Hypertension Mother Diabetes Hypertension Maternal Grandmother Colon cancer Paternal Aunt Cancer of ear Social History Household Members: Family Housing: House Are you a primary child care center administrator to a significant other at home: No Do you presently have visiting nurse or other home services: No Alcohol intake: never Patient Tobacco Use Status: Former Tobacco user Tobacco use type: Cigarette Cigarette Packs Per Day: 1 Years Smoked: 20 e-Cigarette/Vaping Use: Never Used Second Hand Smoke Exposure: No service: No Current occupational status: disabled Current occupation: right hand dominant Cognitive needs: No Hearing needs: No Vision needs: Yes Female Reproductive History Menstrual Age of Menarche: 14 Review of Systems Const All systems reviewed & are unremarkable except as noted in HPI and below ENT Reports Normal hearing present Neuro Reports Normal hearing present, Denies Abnormal speech present and Denies Sensory deficit (Neuro) Physical Exam Vital Signs: Last Vital Signs Pulse 86 08/18/24 09:01 Resp 18 08/18/24 09:01 BP 156/72 H 08/18/24 09:01 Pulse Ox 100 08/18/24 09:01 Oxygen Delivery Method Room Air 08/18/24 09:01 Const General: cooperative, healthy appearing and no acute distress Nutritional Appearance: overweight Orientation/consciousness: patient oriented x3 Limitations: language barrier Eyes Sclerae: sclerae normal Resp Effort & Inspection: normal respiratory effort, able to speak in complete sentences, normal respiratory pattern, no audible wheezes and no cough Cardio Jugular venous distension: no JVD GI Inspection: Yes normal to inspection Auscultation: normal bowel sounds Neuro General: patient oriented x3 Cranial nerves: Yes Normal hearing present Speech: No Abnormal speech present Sensory Exam: No Sensory deficit (Neuro) Psych Appearance: grossly normal and well kempt Attitude: cooperative Office Procedures Therapeutic Injection Therapeutic Injection 65610-[id number] Point Injection 3 or more All charges added?: Procedure code (CPT) selection complete Office Meds triamcinolone acetonide 40 mg/mL suspension for injection Performing Provider: Poli Tristan MD Performing Location: [facility] Administered by: Poli Tristan MD on 08/18/24 12:44 Dose Route Admin Location Dispensed Lot Number Expiration Date NDC Bindery Machine Feeder Offbearer 40 mg IM 1 mL Total Dispensed Waste 1 mL 0 % bupivacaine (PF) 0.25 % (2.5 mg/mL) injection solution Performing Provider: Poli Tristan MD Performing Location: [facility] Administered by: Poli Tristan MD on 08/18/24 12:44 Dose Route Admin Location Dispensed Lot Number Expiration Date NDC Bindery Machine Feeder Offbearer 10 mL Infiltration 10 mL Total Dispensed Waste 10 mL 0 % Results AMB Hemoglobin A1c AMB Hemoglobin A1c 9.8 % Last Edit by LASHONDA Jenkins on 08/18/24 10:01 Assessment & Plan Assessment & Plan (1) Myofascial pain syndrome: Code(s): M79.18 - Myalgia, other site Category: Medical Plan: Trigger point injection. After obtaining informed consent the patient was positioned sitting on examination table. The left upper back was prepped with ChloraPrep most tender points were palpated and marked. After that injection into the upper portion of the trapezius muscle, into the latissimus dorsi muscle, rhomboid minor muscle as well as into the infra scapular muscle was performed in each side spreading the medication in fan-like fashion. Upon completion of the procedure the needle was withdrawn sterile Band-Aids were applied. The patient tolerated the procedure well. Total dose of ropivacaine 0.5% was 10 mL total dose of Kenalog was 40 mg. (2) Spondylosis of lumbosacral region without myelopathy or radiculopathy: Code(s): M47.817 - Spondylosis without myelopathy or radiculopathy, lumbosacral region Category: Medical Plan Anitha is back in my office to receive trigger point injection. The report of the procedure see as above. She is here today after repeat radiofrequency ablation L3, L4, dorsal ramus L5 bilateral she reports good pain relief, better mobility better social interactions better activities of daily living. She requested to perform trigger point injection. It was performed as above. Patient tolerated the procedure well. Next appointment is as needed. Orders: Orders AMB Trigger Point Injection Today M79.18 - Myalgia, other site Coding Level of Care Code Est Pt Level 3 (40237) Procedure Only Diagnoses Myofascial pain syndrome M79.18 Spondylosis of lumbosacral region without myelopathy or radiculopathy M47.817 CPT Codes Therapeutic Injection - Ther Injection 2: 61709-[id number] Point Injection 3 or more ([id number])
[2024-08-18 09:01] VITALS: BP 156/72; PULSE 86; RESP 18; O2SAT 100
== END 2024-08-18 09:15 | disposition home or self-care (01) ==
LOC: HO.PMC 08:32
PROVIDERS: PCP Internal Medicine; Visit Provider Anesthesiology
DX: M47.817 Spondylosis without myelopathy or radiculopathy, lumbosacral region (principal); M79.18 Myalgia, other site
CPT/HCPCS: 20553; 99213

== ENCOUNTER → 2024-08-18 08:31 | Outpatient (BNVA) | payer OTHER, SELFPAY | PROVIDERS: PCP Internal Medicine; Visit Provider Anesthesiology | DX: M47.817 Spondylosis without myelopathy or radiculopathy, lumbosacral region (principal); M79.18 Myalgia, other site | CPT/HCPCS: 20553; 82947; 83036; 99212; J0665; J3300 ==

== ENCOUNTER 2024-08-18 09:31 | Outpatient (AMB) | payer OTHER, SELFPAY ==
--- NOTE | 2024-08-18 07:29 | A.OFFVIS_ITS ---
Vital Signs 08/18/24 09:44 Height 5 ft 9 in Weight 176 lb 5.917 oz BMI 26.0 BP 136/74 Blood Pressure Location Rt brachial Position Sitting Pulse 87 Pulse Source Pulse Oximeter Intake Visit Reasons: T1DM Intake Note: Patient present today to follow up on Type 1 Diabetes Mellitus/Insulin Pump. Last Diabetic Eye exam: 12/2023 Last Podiatry Visit: Patient needs a new referral Most Recent HgA1C: 9.8%, Random Glucose: 145 mg/dL, Today Tie Sawyer Required: Yes Tie Sawyer Language: Tour Coordinator Services: Tie Sawyer Present Tie Sawyer Name: LASHONDA Jenkins/PAUL CHICAS Allergies adhesive tape (ADHESIVE TAPE) Allergy (Intermediate, Verified 08/18/24 09:03) RASH pioglitazone (From ACTOS) Allergy (Intermediate, Verified 08/18/24 09:03) facial edema,rash latex Allergy (Mild, Verified 08/18/24 09:03) Rash HPI Comments Details: 49 YO F with PMHx T2DM who is seen in F/U for the same. [facility].She has upcoming surgery on her abdomen at a site of a previous insulin pump insertion site. Prior to surgery her A1c needs to be improved. Hgb A1C 08/18/24 %, 9.1% on 05/28/24 previous 10.8%. She has a history of prior bariatric surgery in June of 2015. She is on u200 insulin in an insulin pump along with Mounjaro. She previously was on U500 insulin and was struggling to achieve control with this. Her insulin was changed to U 200 which has a similar action of U 100 and more recently a once daily basal shot of Tresiba was added due to insulin resistance. Last A1C on u500 was 10.4%. Current medication: Tresiba 45 units (at last visit had been instructed to increase to 56 units) Invokana 300 mg daily Mounjaro 15 mg weekly She is on Humalog U 200 insulin in her pump She has a tandem T slim X Dexcom average glucose: 256 14 day continuous glucose monitor report reviewed TIme in ranges: Fifty % very high (above 250) 37 % high ?(181-250) 13 % in range ?(70-180] 0 % low (69-55) 0 % ?very low (below 54) Interpretation: She is entering in 52 carbs per day Basal insulin 48% 170 units Bolus insulin 52% 184 units Bolus setting Insulin Carbohydrate Ratio (s) 12 AM? to 5 AM?1:3 5 AM? to 9am? 1:3 9AM to 9PM 1:2 9PM to 12AM 1.5 Correction Factor / Sensitivity Factor 12 AM? to 5 AM? 1:8 5:00am to 9AM 1:3 9am to 9pm 1:4 Glucose target range 00:00 120 05:00 120 09:00 120 21:00 120 Active Insulin Time:?2.5 Has retinopathy last eye exam 10/2023 Has neuropathy on gabapentin. Symptoms: Numbness and tingling no pain or cramping Has nephropathy on DORITA inhibitor 03/08/2024 eGFR>60 recently seen by Nephrology at [facility] for mild chronic hyponatremia and diabetic kidney disease 03/08/24 35.0 Has HLD on statin 03/08/2024 70 Has peripheral vascular disease status post stent 2023 She has an appointment with Podiatry this week. Has bilateral bunions. She does have older diabetic shoes. 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 spine without myelopathy History of ulcer disease Sessile colonic polyp Obesity Tracee's disease nursing home (current) use of insulin Diabetic nephropathy associated with type 2 diabetes mellitus Diabetic retinopathy associated with type 2 diabetes mellitus Diabetic polyneuropathy associated with type 2 diabetes mellitus Iron (Fe) deficiency anemia History of Graves' disease Lumbar degenerative disc disease Back pain Anxiety and depression GERD (gastroesophageal reflux disease) Asthma Hyperlipidemia Hypertension Diabetes mellitus Polyarthralgia Surgical History History of carpal tunnel surgery of right wrist H/O endoscopy History of cataract extraction History of lumpectomy of left breast History of carpal tunnel surgery of left wrist Hx of section Hx laparoscopic cholecystectomy Hx of esophagogastroduodenoscopy Hx of colonoscopy H/O gastric bypass Family History Father Diabetes Hypertension Mother Diabetes Hypertension Maternal Grandmother Colon cancer Paternal Aunt Cancer of ear Social History Household Members: Family Housing: House Are you a primary certified caregiver to a significant other at home: No Do you presently have visiting nurse or other home services: No Alcohol intake: never Patient Tobacco Use Status: Former Tobacco user Tobacco use type: Cigarette Cigarette Packs Per Day: 1 Years Smoked: 20 e-Cigarette/Vaping Use: Never Used Second Hand Smoke Exposure: No service: No Current occupational status: disabled Current occupation: right hand dominant Cognitive needs: No Hearing needs: No Vision needs: Yes Female Reproductive History Menstrual Age of Menarche: 14 Physical Exam Vital Signs: Last Vital Signs Pulse 87 08/18/24 09:44 BP 136/74 08/18/24 09:44 BMI result Body Mass Index 26.0 Const Other: Absence of Cushingoid features. Absence of acromegalic features. Neck exam reveals nl size thyroid about 15 gms. No thyroid nodules palpable. Heart S1 S2, Reg R/R. No M/R G. Skin exam reveals absence of vitiligo or acanthosis nigricans. No edema Visual exam of foot performed. Bilateral bunion deformity, No ulcerations or open lesions. No inter digit maceration or fissuring. No onychomycosis, no callouses. Sensation intact to monofilament exam. Vibratory sensation is normal with 128 Hz tuning fork. Office Procedures Glucose Monitoring Details Details: see hpi Procedure code (CPT) selection complete Results AMB Hemoglobin A1c AMB Hemoglobin A1c 9.8 % Last Edit by LASHONDA Jenkins on 08/18/24 10:01 Results Reviewed Results Reviewed: Laboratory Last Values Glucose (Clinic) 145 mg/dL (60-115) H 08/18/24 09:51 Hgb A1c (Clinic) 9.8 % (4.0-6.0) H 08/18/24 09:59 Assessment & Plan Assessment & Plan (1) T2DM (type 2 diabetes mellitus): Comment: on an insulin pump with u200 insulin Code(s): E11.9 - Type 2 diabetes mellitus without complications Category: Medical Qualifiers: Diabetes mellitus complication status: with hyperglycemia Diabetes mellitus usp insulin use: with usp use Qualified Code(s): E11.65 - Type 2 diabetes mellitus with hyperglycemia; Z79.4 - 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 We will need to make additional adjustments to her medications. She is doing better than when she was on U500 Continue current pump settings Increase Tresiba insulin to 60 units Change Invokana to Jardiance as I believe this will be more effective. We will see her back in 2 weeks to make additional adjustments. The patient had an opportunity to ask questions regarding treatment plan. The patient expressed understanding and agreement with the above treatment plan. The patient is aware they should contact our office by phone for worsening glucose readings or for any low blood sugars which may warrant a change in diabetes medication. Compliance is encouraged with medications and any followup testing/consults which may have been ordered. She was encouraged to keep podiatry appointment and to discuss diabetic shoes/inserts to better support her feet with bilateral bunion deformity. Orders: Orders AMB Glucose Monitoring Today E11.65 - Type 2 diabetes mellitus with hyperglycemia, Z79.4 - nursing home (current) use of insulin AMB Hemoglobin A1c Today E11.65 - Type 2 diabetes mellitus with hyperglycemia Medications: New empagliflozin (Jardiance) 10 mg PO DAILY 30 tabs 3RF 30 days Changed From insulin degludec (Tresiba FlexTouch U-200 insulin) 56 units (0.28 mL) subcut DAILY 30 days 9 mL 6RF To insulin degludec (Tresiba FlexTouch U-200 insulin) 60 units (0.3 mL) subcut DAILY 9 mL 6RF 30 days Discontinued canagliflozin (Invokana) Discontinued Reason: Doctor's Order 300 mg PO DAILY 30 tabs 11RF E11.42 - Type 2 diabetes mellitus with diabetic polyneuropathy, Z79.4 - nursing home (current) use of insulin Patient Instructions: Take 15 carb carbohydrate grams to treat a low sugar (3-4 glucose tablets, half a glass of juice or 15 carbohydrate grams of soft candy such as gummie snacks). Recheck your sugar in 15 minutes and re-treat again with 15 carbohydrate grams if low or still with symptoms. Do not drive a car or operate machinery if you do not know what your blood sugar is, if it is low or in excess of 300. Carry a sugar source at all time The patient was counseled to achieve a target A1C of 7% (154 avg). Fasting blood sugars should be 90-130 in the morning and less than 180 two hours after meals. Reviewed the relationship between poor diabetic control and the development of complications. Coding Level of Care Code Tele New Pt Level 4 (03685) Complex EM visit Add On G2211 Diagnoses Type 2 diabetes mellitus with hyperglycemia, with long-term current use of insulin E11.65; Z79.4 Diabetes mellitus complication status: with hyperglycemia Diabetes mellitus termite treater insulin use: with termite treater use Time Spent (min) 30 Comment Time spent reviewing labs/provider notes, face to face, chart doc
[2024-08-18 09:44] VITALS: BP 136/74; PULSE 87; BMI 26.0
[2024-08-18 09:56] LABS: Glucose, Whole Blood 145 mg/dL (60-115)
== END 2024-08-18 10:06 | disposition home or self-care (01) ==
LOC: HO.ENCR 09:32
PROVIDERS: PCP Internal Medicine; Visit Provider Nurse Practitioner Adult Health
DX: E11.65 Type 2 diabetes mellitus with hyperglycemia (principal); Z79.4 Long term (current) use of insulin
CPT/HCPCS: 99214

== ENCOUNTER 2024-08-19 09:53 | Outpatient (AMB) | payer OTHER, SELFPAY ==
--- NOTE | 2024-08-19 10:00 | MHC.OFFVIS ---
Vital Signs 08/19/24 10:16 Height 5 ft 9 in Weight 172 lb BMI 25.4 BP 159/73 H Blood Pressure Location Lt brachial Position Sitting Pulse 94 Intake Visit Reasons: Dr. Aviles pr~ discuss WLE lower abd mass Intake Note: Patient of Dr Aviles is seen in office to discuss removal of lower abdominal mass. Pt c/o: has a lump on the abodmen was previously I&D by Dr Aviles, per pt still has a lump and discharge, would like to have the area excise Anesthesia Tech Required: Yes Anesthesia Tech Language: [employer] Services: Anesthesia Tech Present Anesthesia Tech Name: Deb GALLEGO Information Interpreted: non-clinical & clinical Crusher Operator: Crusher Operator Present Accompanied by: Self / Same As Patient Allergies adhesive tape (ADHESIVE TAPE) Allergy (Intermediate, Verified 08/19/24 10:17) RASH pioglitazone (From ACTOS) Allergy (Intermediate, Verified 08/19/24 10:17) facial edema,rash latex Allergy (Mild, Verified 08/19/24 10:17) Rash Medication List - Last Reconciled 08/19/24 by Micheal Lemus MD acetaminophen (Tylenol Extra Strength) 500 mg PO Q6H PRN acetone (urine) test (Ketone Urine Test strips) As directed glucose over 300, illness, nausea, vomiting t.i.d. albuterol sulfate 90 mcg/actuation 1 inh inhalation QID PRN albuterol sulfate 2.5 mg (3 mL) inhalation QID PRN 25 days artifi.tears(hypromellose)(PF) 0.3% 1 drp ophthalmic-Right Q4-6H PRN ascorbate calcium (vitamin C) 500 mg PO DAILY blood pressure kit-extra large As directed blood sugar diagnostic (FreeStyle Lite Strips) TEST 4 TIMES DAILY blood-glucose meter (FreeStyle Lite Meter kit) TEST 4 TIMES DAILY buspirone 15 mg PO TID cane As directed cetirizine (Zyrtec) 10 mg PO DAILY 90 days cholecalciferol (vitamin D3) 50 mcg PO DAILY 90 days citalopram 10 mg PO DAILY cyanocobalamin (vitamin B-12) 1,000 mcg sublingual DAILY cyclobenzaprine 10 mg PO TID PRN diclofenac sodium 75 mg PO BID docusate sodium 100 mg PO DAILY empagliflozin (Jardiance) 10 mg PO DAILY 30 days ergocalciferol (vitamin D2) 1,250 mcg PO QWEEK 90 days escitalopram oxalate 5 mg PO DAILY fluticasone propionate 50 mcg/actuation (Flonase Allergy Relief) 1 spray intranasal DAILY 30 days folic acid 1 mg PO DAILY furosemide 20 mg PO BID 90 days gabapentin 100 mg PO TID 30 days glucagon 3 mg/actuation (Baqsimi) 3 mg intranasal .prn PRN 30 days MDD 6 mg [glucose tablets 15 grams PO .prn PRN 30 days MDD 12 tablets] hydrocortisone 2.5% (Proctozone-HC) 1 appl MS BID PRN hydrocortisone-pramoxine 1-1 % (Proctofoam HC) 1 appl MS DAILY hydroxyzine HCl 1 - 2 tabs PO QID ibuprofen 400 mg PO TID PRN insulin degludec (Tresiba FlexTouch U-200 insulin) 60 units (0.3 mL) subcut DAILY 30 days insulin lispro (Humalog KwikPen U-200 Insulin) up to 425 units per day via pump subcutaneously use as directed; 30 days insulin syringe-needle U-100 (Advocate Syringes) Use 1 needle once a month lidocaine 5% (Lidoderm) 1 patch topical DAILY PRN MDD remove after 12 hours lisinopril 20 mg PO DAILY methylcellulose (laxative) (Citrucel Sugar Free oral powder) 2 grams PO DAILY PRN montelukast 10 mg PO DAILY 90 days nebulizers (AeroEclipse II Nebulizer) As directed nortriptyline 10 mg PO BEDTIME ondansetron 4 mg PO Q6-8H PRN oxycodone-acetaminophen 5-325 mg 1 tab PO Q8H PRN 30 days pantoprazole 40 mg PO DAILY 30 days pen needle, diabetic As directed qid prn pump failure pen needle, diabetic (Comfort EZ Pen [place]) As directed once daily, prn pump failure can increase to qid prochlorperazine maleate 10 mg PO TID PRN rosuvastatin 40 mg PO DAILY 90 days Shower Chair As directed simethicone (Gas Relief Extra Strength) 125 mg PO TID-QID PRN [skin tac apply to skin at pump site and sensor site after cleansing with alcohol.Insert pump cannula/sensor after skin tac has allowed to dry. Use on pump every three days, every 10 at sensor site.] syringe with needle (TheTake Luer Slip Syringe-Needle) For vitamin B12 injection syringe with needle, safety (BD Safety-Jone Detachable Needle) Use 1 syringe once a month thiamine HCl (vitamin B1) 1 tab PO DAILY tirzepatide (Mounjaro) 15 mg (0.5 mL) subcut QWEEK 28 days tizanidine 4 mg PO Q8H PRN 30 days vitamin A 1 cap PO DAILY HPI Comments Details: 49-year-old female patient presenting with a recent history of an infected epidermal inclusion cyst of the abdomen now presenting for re-evaluation possible excision. She continues to have occasional pain and discharge from the site which is located in the lower abdomen in the midline. She denies any fever, chills, nausea or vomiting. The site was previously incised and drained by Dr. Aviles in his now decreased markedly in size. She is requesting excision of the cyst. [facility] Medical History Bunion of great toe Peripheral vascular disease of lower extremity Cellulitis Uncontrolled type 2 diabetes mellitus with hyperglycemia Physical exam Cellulitis of toe of right foot Hospital discharge follow-up Goiter Onychomycosis Vitamin D deficiency T2DM (type 2 diabetes mellitus) Left ankle pain B12 deficiency Left leg pain Acid reflux History of colonic polyps Chronic fatigue Carpal tunnel syndrome Daytime hypersomnia Autoimmune thyroiditis Fibromyalgia Morbid obesity Spondylosis, thoracic, 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 spine without myelopathy History of ulcer disease Sessile colonic polyp Obesity Tracee's disease assisted (current) use of insulin Diabetic nephropathy associated with type 2 diabetes mellitus Diabetic retinopathy associated with type 2 diabetes mellitus Diabetic polyneuropathy associated with type 2 diabetes mellitus Iron (Fe) deficiency anemia History of Graves' disease Lumbar degenerative disc disease Back pain Anxiety and depression GERD (gastroesophageal reflux disease) Asthma Hyperlipidemia Hypertension Diabetes mellitus Polyarthralgia Surgical History History of carpal tunnel surgery of right wrist H/O endoscopy History of cataract extraction History of lumpectomy of left breast History of carpal tunnel surgery of left wrist Hx of section Hx laparoscopic cholecystectomy Hx of esophagogastroduodenoscopy Hx of colonoscopy H/O gastric bypass Family History Father Diabetes Hypertension Mother Diabetes Hypertension Maternal Grandmother Colon cancer Paternal Aunt Cancer of ear Social History Household Members: Family Housing: House Are you a primary intensive care ambulance paramedic to a significant other at home: No Do you presently have visiting nurse or other home services: No Alcohol intake: never Patient Tobacco Use Status: Former Tobacco user Tobacco use type: Cigarette Cigarette Packs Per Day: 1 Years Smoked: 20 e-Cigarette/Vaping Use: Never Used Second Hand Smoke Exposure: No service: No Current occupational status: disabled Current occupation: right hand dominant Cognitive needs: No Hearing needs: No Vision needs: Yes Female Reproductive History Menstrual Age of Menarche: 14 Review of Systems Const All systems reviewed & are unremarkable except as noted in HPI and below Physical Exam Const General: no acute distress Nutritional Appearance: well nourished Orientation/consciousness: patient oriented x3 Limitations: no limitations HEENT Head: Yes normocephalic and Yes atraumatic Resp Effort & Inspection: normal respiratory effort GI Inspection: Yes normal to inspection Palpation (GI): Soft to palpation, nontender, no guarding, not rigid and No hepatosplenomegaly present Abdomen image:  1. Three areas of induration noted in the lower midline abdomen measuring approximately 3 x 2 cm. Mild tenderness to palpation. No discharge noted. Skin General skin exam: no rashes or lesions noted Neuro General: patient oriented x3 Extrem General: Yes no clubbing, cyanosis or edema Assessment & Plan Assessment & Plan (1) Epidermal inclusion cyst: Code(s): L72.0 - Epidermal cyst Category: Medical Plan 41-year-old female patient presenting with a previously infected epidermal inclusion cyst of the lower midline abdomen. Examination there are 3 areas which line up in the lower midline measuring approximately 3 x 2 cm with no evidence of active infection. I recommended an excision of the collection of cysts as a short-stay surgery and after discussion of the procedure, risks, and alternatives, she consents to the surgery. Coding Level of Care Code Est Pt Level 4 (66735) Diagnoses Epidermal inclusion cyst L72.0
[2024-08-19 10:16] VITALS: BP 159/73; PULSE 94; BMI 25.4
--- OUTSIDE RECORDS SUMMARY | 2024-08-19 11:18 | XMS_ITS | Clinical Summary ---
Author Organization [facility] Facility Address [address] [place] [address] Care Team Providers Care Senior Front End Engineer Name Role Phone Analilia Chaidez MD Primary Care Provider [phone] Allergies Active Allergy Reactions Criticality Noted Date [...] this topic Insurance Medicaid Medicaid Care Teams Senior Front End Engineer Relationship Specialty Start Date End Date Analilia Chaidez MD [address] [place], [place] PCP - General 03/06/20
== END 2024-08-19 10:15 | disposition home or self-care (01) ==
LOC: HO.HGS 09:54
PROVIDERS: PCP Internal Medicine; Visit Provider Surgery
DX: L72.0 Epidermal cyst (principal)
CPT/HCPCS: 99214

== ENCOUNTER → 2024-08-19 09:53 | Outpatient (BNVA) | payer OTHER, SELFPAY | PROVIDERS: PCP Internal Medicine; Visit Provider Surgery | DX: L72.0 Epidermal cyst (principal) | CPT/HCPCS: 99212 ==

== ENCOUNTER 2024-09-01 08:19 | Outpatient (AMB) | payer OTHER, SELFPAY ==
--- NOTE | 2024-09-01 08:23 | A.OFFVIS_ITS ---
Vital Signs 09/01/24 08:29 Height 5 ft 9 in Weight 173 lb 4.533 oz BMI 25.6 BP 134/66 Blood Pressure Location Rt brachial Position Sitting Pulse 78 Pulse Source Pulse Oximeter Intake Visit Reasons: DM Intake Note: Patient present today to follow up on Type 1 Diabetes Mellitus. Patient receives Tandem insulin pump and Dexcom G7 supplies through: [employer] Last Diabetic Eye exam: 12/2023 Last Podiatry Visit: Patient requesting referral Random Glucose: 110 mg/dl HgA1C: 9.8% 08/18/2024 Parts Counterperson Required: Yes Parts Counterperson Language: Marketing Professor Services: Parts Counterperson Present Parts Counterperson Name: [facility] [place] Information Interpreted: non-clinical & clinical Accompanied by: Self / Same As Patient Allergies adhesive tape (ADHESIVE TAPE) Allergy (Intermediate, Verified 09/01/24 08:29) RASH pioglitazone (From ACTOS) Allergy (Intermediate, Verified 09/01/24 08:29) facial edema,rash latex Allergy (Mild, Verified 09/01/24 08:29) Rash HPI Comments Details: 49 YO F with PMHx T2DM who is seen in F/U for the same. She last saw Rand Wilcox NP on 08/18/24 She has a history of prior bariatric surgery in June of 2015. She is on u200 insulin in an insulin pump along with Mounjaro. She previously was on U500 insulin and was struggling to achieve control with this. Her insulin was changed to U 200 which has a similar action of U 100 and more recently a once daily basal shot of Tresiba was added due to insulin resistance. Last A1C on u500 was 10.4%. Received steroid injections 2 wks ago Current medication: Tresiba 70 units Jardiance 10 mg QD Mounjaro 15 mg weekly She is on Humalog U 200 insulin in her pump. States pump is malfunctioning She has a tandem T slim X Dexcom average glucose: 331 14 day continuous glucose monitor report reviewed TIme in ranges: 87% very high (above 250) 13 % high ?(181-250) 13 % in range ?(70-180] 0 % low (69-55) 0 % ?very low (below 54) Interpretation: She is entering in 52 carbs per day Basal insulin 36% 170 units Bolus insulin 64% 184 units Bolus setting Insulin Carbohydrate Ratio (s) 12 AM? to 5 AM?1:8 5 AM? to 9am? 1:3 9AM to 9PM 1:4 9PM to 12AM 1.5 Correction Factor / Sensitivity Factor 12 AM? to 5 AM? 1:8 5:00am to 9AM 1:3 9am to 9pm 1:4 Glucose target range 00:00 120 05:00 120 09:00 120 21:00 120 Active Insulin Time:?2.5 Basal Rates 12A= 6 5A= 7 9A= 4.2 9 PM= 6 Has retinopathy last eye exam 4 mos ago Has neuropathy on gabapentin. Symptoms: Numbness and tingling no pain or cramping Has nephropathy on DORITA inhibitor 03/08/2024 eGFR>60 recently seen by [place]rology [place] [facility] [place] chronic hyponatremia and diabetic kidney disease 03/08/24 35.0 Has HLD on statin 03/08/2024 70 Has peripheral vascular disease status post stent 2023 She has an appointment with Podiatry this week. Has bilateral bunions. She does have older diabetic shoes. Sees Kae Penn CDE on an ongoing basis has appt in 3 wks [facility] Medical History Bunion of great toe Peripheral vascular disease of lower extremity Cellulitis Uncontrolled type 2 diabetes mellitus with hyperglycemia Physical exam Cellulitis of toe of right foot Hospital discharge follow-up Goiter Onychomycosis Vitamin D deficiency T2DM (type 2 diabetes mellitus) Left ankle pain B12 deficiency Left leg pain Acid reflux History of colonic polyps Chronic fatigue Carpal tunnel syndrome Daytime hypersomnia Autoimmune thyroiditis Fibromyalgia Morbid obesity Spondylosis, thoracic, 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 spine without myelopathy History of ulcer disease Sessile colonic polyp Obesity Tracee's disease FDC (current) use of insulin Diabetic nephropathy associated with type 2 diabetes mellitus Diabetic retinopathy associated with type 2 diabetes mellitus Diabetic polyneuropathy associated with type 2 diabetes mellitus Iron (Fe) deficiency anemia History of Graves' disease Lumbar degenerative disc disease Back pain Anxiety and depression GERD (gastroesophageal reflux disease) Asthma Hyperlipidemia Hypertension Diabetes mellitus Polyarthralgia Surgical History History of carpal tunnel surgery of right wrist H/O endoscopy History of cataract extraction History of lumpectomy of left breast History of carpal tunnel surgery of left wrist Hx of section Hx laparoscopic cholecystectomy Hx of esophagogastroduodenoscopy Hx of colonoscopy H/O gastric bypass Family History Father Diabetes Hypertension Mother Diabetes Hypertension Maternal Grandmother Colon cancer Paternal Aunt Cancer of ear Social History Household Members: Family Housing: House Are you a primary live in caregiver to a significant other at home: No Do you presently have visiting nurse or other home services: No Alcohol intake: never Patient Tobacco Use Status: Former Tobacco user Tobacco use type: Cigarette Cigarette Packs Per Day: 1 Years Smoked: 20 e-Cigarette/Vaping Use: Never Used Second Hand Smoke Exposure: No service: No Current occupational status: disabled Current occupation: right hand dominant Cognitive needs: No Hearing needs: No Vision needs: Yes Female Reproductive History Menstrual Age of Menarche: 14 Assessment & Plan Assessment & Plan (1) T2DM (type 2 diabetes mellitus): Comment: on an insulin pump with u200 insulin Code(s): E11.9 - Type 2 diabetes mellitus without complications Category: Medical Qualifiers: Diabetes mellitus house director insulin use: with house director use Diabetes mellitus complication status: with hyperglycemia Qualified Code(s): E11.65 - Type 2 diabetes mellitus with hyperglycemia; Z79.4 - chronic condition nurse (current) use of insulin Plan: This is a 48-year-old female with a history of type 2 diabetes being treated with Mounjaro , Invokana and U-200 insulin and Tresiba with poor glycemic control and known microvascular complications namely nephropathy, retinopathy and neuropathy Plan is to have the patient follow-up with CDE in next wk or so and would suggest reconverting to U-500 in pump and stop Tresiba. Will checl lipid profile and micro/alb Coding Level of Care Code Est Pt Level 4 (38462) Diagnoses Type 2 diabetes mellitus with hyperglycemia, with long-term current use of insulin E11.65; Z79.4 Diabetes mellitus senior living insulin use: with senior living use Diabetes mellitus complication status: with hyperglycemia
--- OUTSIDE RECORDS SUMMARY | 2024-09-01 08:28 | XMS_ITS | Clinical Summary ---
Author Organization [facility] Facility Address [address] [place] [id number] Care Team Providers Care Pig Farmer Name Role Phone Analilia Chaidez MD Primary Care Provider [phone] Allergies Active Allergy Reactions Criticality Noted Date [...] Visual Foot Exam 03/27/2020 Influenza Vaccine (#1) 2024 Pneumococcal Vaccine: Peds ( 0 to 5 Years) and At-Risk Patients (6 to 49 Years) Aged Out No longer eligible b ased on patient's age to complete this topic Insurance Medicaid Medicaid Care Teams Pig Farmer Relationship Specialty Start Date End Date Analilia Chaidez MD [address] [place], [place] PCP - General 03/06/20
--- OUTSIDE RECORDS SUMMARY | 2024-09-01 08:28 | XMS_ITS | Clinical Summary ---
Author Organization [facility] Address [address] [place] [address] Phone Care Team Providers Care Digital Advisor Name Role Phone Analilia Schumacher MD Primary Care Provider [phone] Social History Tobacco Use Types Packs/Day Years Used Date Smoking Tobacco: Never Assessed Comments Unknown Sex and Gender Information Value Date Recorded Sex Assigned at Not on file Legal Sex Female 10:48 PM EST Gender Identity Not on file Sexual Orientation Not on file Plan of Treatment Upcoming Encounters Date Type Department Care Team ([facility] Contact Info) Description 10/07/2024 9:30 AM EDT Consult Orthopedic Surgery [place] [id number] [phone] Kali Artis, DPM [address] [address] Health Maintenance Due Date Last Done Comments Breast Cancer Screening 1976 DTaP,Tdap,and Td Vaccines (1 - Tdap) 1995 Cervical Cancer Screening: P ap Smear 1997 COVID-19 Vaccine (2023-2 5 season) 2023 Colorectal Cancer Screening: Colonoscopy 07/15/2024 Depression Screening 07/15/2024 HIV Screening 07/15/2024 Hepatitis C Screening 07/15/2024 Social Influencers of Health Screening 07/15/2024 Influenza Vaccine (#1) 2024 Hepatitis A Vaccines Aged Out 02/19/2011, [...] complete this topic Insurance MEDICAID - [place] [facility] Care Teams Digital Advisor Relationship Specialty Start Date End Date Analilia Schumacher MD [address] [place] [address] , [address] [facility] D[facility]A: [facility] [place], [place] PCP - General Internal Medicine 12/22/17
[2024-09-01 08:29] VITALS: BP 134/66; PULSE 78; BMI 25.6
[2024-09-01 08:41] LABS: Glucose, Whole Blood 110 mg/dL (60-115)
== END 2024-09-01 08:56 | disposition home or self-care (01) ==
LOC: HO.ENCR 08:20
PROVIDERS: PCP Internal Medicine; Visit Provider Internal Medicine Endocrinology, Diabetes & Metabolism
DX: E11.65 Type 2 diabetes mellitus with hyperglycemia (principal); Z79.4 Long term (current) use of insulin
CPT/HCPCS: 99214

== ENCOUNTER → 2024-09-01 08:19 | Outpatient (BNVA) | payer OTHER, SELFPAY | PROVIDERS: PCP Internal Medicine; Visit Provider Internal Medicine Endocrinology, Diabetes & Metabolism | DX: M47.817 Spondylosis without myelopathy or radiculopathy, lumbosacral region (principal); M79.18 Myalgia, other site; E11.65 Type 2 diabetes mellitus with hyperglycemia; Z79.4 Long term (current) use of insulin | CPT/HCPCS: 82947; 99212 ==

== ENCOUNTER 2024-09-01 09:55 | Outpatient (AMB) | payer OTHER, SELFPAY ==
[2024-09-01 10:50] VITALS: BP 137/73; PULSE 91; RESP 16; O2SAT 100; BMI 25.6
--- NOTE | 2024-09-01 10:50 | A.OFFVIS_ITS ---
Vital Signs 09/01/24 10:50 Height 5 ft 9 in Weight 173 lb 4.533 oz BMI 25.6 BP 137/73 Blood Pressure Location Lt brachial Position Sitting Respiration 16 Pulse 91 Pulse Source Pulse Oximeter Pulse Oximetry (%) 100 Oxygen Delivery Method Room Air Intake Visit Reasons: S/p B/l L3-L4-DR L5 MB RFA 07/23/24 Brick And Block Mason Required: No Accompanied by: Self / Same As Patient Allergies adhesive tape (ADHESIVE TAPE) Allergy (Intermediate, Verified 09/01/24 10:54) RASH pioglitazone (From ACTOS) Allergy (Intermediate, Verified 09/01/24 10:54) facial edema,rash latex Allergy (Mild, Verified 09/01/24 10:54) Rash HPI Comments Details: The patient is a 49-year-old female presenting today for follow up chronic back pain. The pain in the right upper back was treated with trigger point injections performed by Dr. Tristan 2 weeks ago. Initially, the pain was rated at a 10, but post-injection, it has decreased to a 6. The patient reports that the pain is manageable unless she attempts to lift her shoulder, which exacerbates the discomfort. She would like to return for similar trigger point injections to her left upper back. The lower back pain was addressed with radiofrequency ablation, which provided significant relief, reducing the pain to a level of 5. However, the patient now experiences pain in the middle back, which she associates with certain movements. Standing for prolonged periods exacerbates the pain, although she can perform daily activities like walking and housekeeping without significant issues. - Left upper back pain: Initially rated at 10, reduced to 6 post-injection. - Lower back pain: Reduced to 5 post-radiofrequency ablation. - Middle back pain: Associated with certain movements, exacerbated by prolonged standing. - Difficulty lifting shoulder: Exacerbates left upper back pain. - Affect: Pain impacts ability to lift shoulder and stand for long periods. - Analgesia: Injections and radiofrequency ablation have reduced pain levels. - Activities of Daily Living: Can perform daily activities like walking and ho usekeeping. [facility] Medical History Bunion of great toe Peripheral vascular disease of lower extremity Cellulitis Uncontrolled type 2 diabetes mellitus with hyperglycemia Physical exam Cellulitis of toe of right foot Hospital discharge follow-up Goiter Onychomycosis Vitamin D deficiency T2DM (type 2 diabetes mellitus) Left ankle pain B12 deficiency Left leg pain Acid reflux History of colonic polyps Chronic fatigue Carpal tunnel syndrome Daytime hypersomnia Autoimmune thyroiditis Fibromyalgia Morbid obesity Spondylosis, thoracic, 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 spine without myelopathy History of ulcer disease Sessile colonic polyp Obesity Tracee's disease 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 Diabetic nephropathy associated with type 2 diabetes mellitus Diabetic retinopathy associated with type 2 diabetes mellitus Diabetic polyneuropathy associated with type 2 diabetes mellitus Iron (Fe) deficiency anemia History of Graves' disease Lumbar degenerative disc disease Back pain Anxiety and depression GERD (gastroesophageal reflux disease) Asthma Hyperlipidemia Hypertension Diabetes mellitus Polyarthralgia Surgical History History of carpal tunnel surgery of right wrist H/O endoscopy History of cataract extraction History of lumpectomy of left breast History of carpal tunnel surgery of left wrist Hx of section Hx laparoscopic cholecystectomy Hx of esophagogastroduodenoscopy Hx of colonoscopy H/O gastric bypass Family History Father Diabetes Hypertension Mother Diabetes Hypertension Maternal Grandmother Colon cancer Paternal Aunt Cancer of ear Social History Household Members: Family Housing: House Are you a primary career services director to a significant other at home: No Do you presently have visiting nurse or other home services: No Alcohol intake: never Patient Tobacco Use Status: Former Tobacco user Tobacco use type: Cigarette Cigarette Packs Per Day: 1 Years Smoked: 20 e-Cigarette/Vaping Use: Never Used Second Hand Smoke Exposure: No service: No Current occupational status: disabled Current occupation: right hand dominant Cognitive needs: No Hearing needs: No Vision needs: Yes Female Reproductive History Menstrual Age of Menarche: 14 Review of Systems Const Details: - Musculoskeletal: Reports pain in left upper back, lower back, and middle back. Denies other musculoskeletal symptoms. - Neurological: Denies numbness or tingling. Physical Exam Vital Signs: Last Vital Signs Pulse 91 09/01/24 10:50 Resp 16 09/01/24 10:50 BP 137/73 09/01/24 10:50 Pulse Ox 100 09/01/24 10:50 Oxygen Delivery Method Room Air 09/01/24 10:50 BMI result Body Mass Index 25.6 General: awake, alert, oriented. Answers questions appropriately. Fully engaged in examination. Skin: warm, dry, intact HEENT: Normocephalic. Hearing intact. Cardiac: External chest normal in appearance. Respiratory: No cough, audible wheezing or stridor. Abdomen: without gross distension. MS: No obvious swelling or deformities. Neurological: Oriented to person, place, time and situation. Thought process intact. No gait abnormalities appreciated. Psychiatric: Appropriate mood and affect. Good judgment and insight. Assessment & Plan Assessment & Plan (1) Myofascial pain syndrome: Code(s): M79.18 - Myalgia, other site Category: Medical (2) Spondylosis of lumbosacral region without myelopathy or radiculopathy: Code(s): M47.817 - Spondylosis without myelopathy or radiculopathy, lumbosacral region Category: Medical Plan The patient will continue with the current pain management plan, including the use of injections and radiofrequency ablation, which have shown effectiveness in reducing pain levels. Patient had insulin-dependent diabetic, received trigger point injections to her right upper back 2 weeks ago. Will proceed with similar trigger point injections to her left upper back, these will be scheduled in 1 month from previous steroid trigger point injections. Patient was informed and verbally consented to the use of an ambient scribe for clinic note documentation during this visit. Patient Instructions: - Continue with current pain management plan, follow-up for trigger point injections in the left upper back - Avoid lifting heavy objects and standing for long periods. - Attend follow-up appointments as scheduled. Coding Level of Care Code Est Pt Level 3 (27774) Complex EM visit Add On G2211 Diagnoses Myofascial pain syndrome M79.18 Spondylosis of lumbosacral region without myelopathy or radiculopathy M47.817
== END 2024-09-01 11:07 | disposition home or self-care (01) ==
LOC: HO.PMC 09:56
PROVIDERS: PCP Internal Medicine; Visit Provider Registered Nurse Emergency
DX: M79.18 Myalgia, other site (principal); M47.817 Spondylosis without myelopathy or radiculopathy, lumbosacral region
CPT/HCPCS: 99213; G2211

== ENCOUNTER 2024-09-15 11:00 | Outpatient (AMB) | payer OTHER, SELFPAY ==
--- NOTE | 2024-09-15 11:58 | MHC.AMDMED ---
Intake Intake Visit Reasons: 60 min Allergies adhesive tape (ADHESIVE TAPE) Allergy (Intermediate, Verified 09/01/24 10:54) RASH pioglitazone (From ACTOS) Allergy (Intermediate, Verified 09/01/24 10:54) facial edema,rash latex Allergy (Mild, Verified 09/01/24 10:54) Rash HPI Comprehensive Diabetes Asmnt Most Recent Diabetes Results: Creatinine, (0.5-1.4) 0.57 mg/dL 08/12/24 BUN, (9-16) 10 mg/dL 08/12/24 Sodium, (135-145) 136 mmol/L 08/12/24 Potassium, (3.3-5.1) 3.9 mmol/L 08/12/24 Chloride, (96-108) 103 mmol/L 08/12/24 Carbon Dioxide, (22-29) 27 mmol/L 08/12/24 Calcium, (8.4-10.2) 9.0 mg/dL Δ 08/12/24 AST, (5-31) 22 U/L 08/12/24 ALT, (0-31) 29 U/L 08/12/24 Total Protein, (6.5-8.0) 6.6 g/dL 08/12/24 Albumin, (3.5-5.0) 4.0 g/dL 08/12/24 [facility] Medical History Bunion of great toe Peripheral vascular disease of lower extremity Cellulitis Uncontrolled type 2 diabetes mellitus with hyperglycemia Physical exam Cellulitis of toe of right foot Hospital discharge follow-up Goiter Onychomycosis Vitamin D deficiency T2DM (type 2 diabetes mellitus) Left ankle pain B12 deficiency Left leg pain Acid reflux History of colonic polyps Chronic fatigue Carpal tunnel syndrome Daytime hypersomnia Autoimmune thyroiditis Fibromyalgia Morbid obesity Spondylosis, thoracic, 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 spine without myelopathy History of ulcer disease Sessile colonic polyp Obesity Tracee's disease halfway (current) use of insulin Diabetic nephropathy associated with type 2 diabetes mellitus Diabetic retinopathy associated with type 2 diabetes mellitus Diabetic polyneuropathy associated with type 2 diabetes mellitus Iron (Fe) deficiency anemia History of Graves' disease Lumbar degenerative disc disease Back pain Anxiety and depression GERD (gastroesophageal reflux disease) Asthma Hyperlipidemia Hypertension Diabetes mellitus Polyarthralgia Surgical History History of carpal tunnel surgery of right wrist H/O endoscopy History of cataract extraction History of lumpectomy of left breast History of carpal tunnel surgery of left wrist Hx of section Hx laparoscopic cholecystectomy Hx of esophagogastroduodenoscopy Hx of colonoscopy H/O gastric bypass Family History Father Diabetes Hypertension Mother Diabetes Hypertension Maternal Grandmother Colon cancer Paternal Aunt Cancer of ear Social History Household Members: Family Housing: House Are you a primary career information specialist to a significant other at home: No Do you presently have visiting nurse or other home services: No Alcohol intake: never Patient Tobacco Use Status: Former Tobacco user Tobacco use type: Cigarette Cigarette Packs Per Day: 1 Years Smoked: 20 e-Cigarette/Vaping Use: Never Used Second Hand Smoke Exposure: No service: No Current occupational status: disabled Current occupation: right hand dominant Cognitive needs: No Hearing needs: No Vision needs: Yes Female Reproductive History Menstrual Age of Menarche: 14 Assessment & Plan Assessment & Plan (1) Diabetic retinopathy associated with type 2 diabetes mellitus: Code(s): E11.319 - Type 2 diabetes mellitus with unspecified diabetic retinopathy without macular edema Plan: Theo ID: [email or web address] Complete Tandem password: [email or web address] Patient presents for pump training for [facility] with control IQ, and Dexcom G7 insulin pump therapy with Humalog U200 With Trasiba U200 70 units The following topics were reviewed today: Updating insulin pump to new 7.9 software Including switching pump to Danish language, extended meal bolus up to 8 hours, temp basal now available in control IQ Staying in automatic mode verses manual mode - Sensor setting (if applicable) ?? High Alert: 180 mg/dl ??? Low Alert: 80 mg/dl Patient's glucose continues to run well above target, for the past 6 days glucose levels have improved. Patient reports she has started walking approximately 30-45 minutes a day Discussed with patient the importance of physical activity in glucose control. If she wishes to remain on Humalog U 200, recommended she increase Tresiba U 200 from 70 units to 80 units. At next visit if glucose is still uncontrolled she can discuss with Dr. Aguayo going back to using U 500 in insulin pump. Instructed patient if she is to resume U 500, see me 1st so we can update insulin pump settings. If she does not change insulin pump settings before starting U500 she is at high risk for hypoglycemia Safety information: Importance of a backup plan, for manual injections, proper prescriptions and emergency supplies ketone strips, and rules for testing for ketones Setting verified by CDCES, Pump Settings:with U200 insulin Basal rate(s) (units/hour) : 12 AM? to 5 AM 6 units / hr 5AM to 9 AM 7 units / hr 9 AM? to 9 PM? 4.2 units / hr 9 PM to 12 AM 6 units / hr Bolus setting Insulin Carbohydrate Ratio (s) 12 AM? to 5 AM?1:3 5 AM? to 9AM ? 1:1.5 9AM to 9 PM 1:2 9 PM to 12 AM 1:1.5 Correction Factor / Sensitivity Factor 12 AM? to 5 AM?1:8 5 AM to 9 AM 1:3 9 AM to 9 PM 1:4 9 PM to 12 AM 1:5 Insulin action time: 5 hours in control IQ Patient Instructions: Aumente la dosis diaria de Tresiba de 70 a 80 unidades. Seguimiento en 2 meses con la enfermera de DM. Coding Level of Care Code Est Pt Level 1 (62148) Diagnoses Diabetic retinopathy associated with type 2 diabetes mellitus E11.319
--- OUTSIDE RECORDS SUMMARY | 2024-09-15 12:02 | XMS_ITS | Clinical Summary ---
Author Organization [facility] Facility Address [address] [place] [id number] Care Team Providers Care Fig Washer Name Role Phone Analilia Chaidez MD Primary Care Provider [phone] Allergies Active Allergy Reactions Criticality Noted Date [...] this topic Insurance Medicaid Medicaid Care Teams Fig Washer Relationship Specialty Start Date End Date Analilia Chaidez MD [address] [place], [place] PCP - General 03/06/20
--- OUTSIDE RECORDS SUMMARY | 2024-09-15 12:02 | XMS_ITS | Clinical Summary ---
Author Organization [address] [facility] Address [address] [place] [address] Phone Care Team Providers Care Manufacturing Quality Technician Name Role Phone Analilia Schumacher MD Primary Care Provider [phone] Social History Tobacco Use Types Packs/Day Years Used Date Smoking Tobacco: Never Assessed Comments Unknown Sex and Gender Information Value Date Recorded Sex Assigned at Not on file Legal Sex Female 10:48 PM EST Gender Identity Not on file Sexual Orientation Not on file Plan of Treatment Upcoming Encounters Date Type Department Care Team ([facility] Contact Info) Description 10/07/2024 9:30 AM EDT Consult Orthopedic Surgery [place] [id number] [id number] Kali Artis, DPM [address] [address] Health Maintenance Due Date Last Done Comments Breast Cancer Screening 1976 DTaP,Tdap,and Td Vaccines (1 - Tdap) 1995 Cervical Cancer Screening: P ap Smear 1997 COVID-19 Vaccine ( - 2023-2 5 season) 2023 Depression Screening 02/25/2024 Colorectal Cancer Screening: Colonoscopy 07/15/2024 HIV Screening 07/15/2024 Hepatitis C Screening [...] complete this topic Insurance MED[place] - [place] [facility] PL[facility] Care Teams Manufacturing Quality Technician Relationship Specialty Start Date End Date Analilia Schumacher MD [address] [place] [address] , [address] [facility] D[facility]A: [facility] [place], [place] PCP - General Internal Medicine 12/22/17
== END 2024-09-15 12:15 | disposition home or self-care (01) ==
LOC: HO.ENCR 11:01
PROVIDERS: PCP Internal Medicine; Visit Provider Registered Nurse Diabetes Educator
DX: E11.319 Type 2 diabetes mellitus with unspecified diabetic retinopathy without macular edema (principal)

== ENCOUNTER → 2024-09-15 11:00 | Outpatient (BNVA) | payer OTHER, SELFPAY | PROVIDERS: PCP Internal Medicine; Visit Provider Registered Nurse Diabetes Educator | DX: M79.18 Myalgia, other site (principal); M47.817 Spondylosis without myelopathy or radiculopathy, lumbosacral region; E11.319 Type 2 diabetes mellitus with unspecified diabetic retinopathy without macular edema; Z46.81 Encounter for fitting and adjustment of insulin pump; Z79.4 Long term (current) use of insulin | CPT/HCPCS: 20553; 99211; J0665; J3300 ==

== ENCOUNTER 2024-09-15 13:46 | Outpatient (AMB) | payer OTHER, SELFPAY ==
--- NOTE | 2024-09-15 14:07 | MHC.OFFVIS ---
Vital Signs 09/15/24 14:08 Weight 174 lb BP 143/78 H Blood Pressure Location Lt brachial Position Sitting Respiration 18 Pulse 74 Pulse Source Pulse Oximeter Pulse Oximetry (%) 98 Oxygen Delivery Method Room Air Intake Visit Reasons: Left side trigger point inj Player Development Manager Required: No Phlebotomist Lab Assistant: Phlebotomist Lab Assistant Present Accompanied by: von arroyoAscencion Allergies adhesive tape (ADHESIVE TAPE) Allergy (Intermediate, Verified 09/15/24 14:08) RASH pioglitazone (From ACTOS) Allergy (Intermediate, Verified 09/15/24 14:08) facial edema,rash latex Allergy (Mild, Verified 09/15/24 14:08) Rash [facility] Medical History Bunion of great toe Peripheral vascular disease of lower extremity Cellulitis Uncontrolled type 2 diabetes mellitus with hyperglycemia Physical exam Cellulitis of toe of right foot Hospital discharge follow-up Goiter Onychomycosis Vitamin D deficiency T2DM (type 2 diabetes mellitus) Left ankle pain B12 deficiency Left leg pain Acid reflux History of colonic polyps Chronic fatigue Carpal tunnel syndrome Daytime hypersomnia Autoimmune thyroiditis Fibromyalgia Morbid obesity Spondylosis, thoracic, 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 spine without myelopathy History of ulcer disease Sessile colonic polyp Obesity Tracee's disease 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 Diabetic nephropathy associated with type 2 diabetes mellitus Diabetic retinopathy associated with type 2 diabetes mellitus Diabetic polyneuropathy associated with type 2 diabetes mellitus Iron (Fe) deficiency anemia History of Graves' disease Lumbar degenerative disc disease Back pain Anxiety and depression GERD (gastroesophageal reflux disease) Asthma Hyperlipidemia Hypertension Diabetes mellitus Polyarthralgia Surgical History History of carpal tunnel surgery of right wrist H/O endoscopy History of cataract extraction History of lumpectomy of left breast History of carpal tunnel surgery of left wrist Hx of section Hx laparoscopic cholecystectomy Hx of esophagogastroduodenoscopy Hx of colonoscopy H/O gastric bypass Family History Father Diabetes Hypertension Mother Diabetes Hypertension Maternal Grandmother Colon cancer Paternal Aunt Cancer of ear Social History Household Members: Family Housing: House Are you a primary residential care officer to a significant other at home: No Do you presently have visiting nurse or other home services: No Alcohol intake: never Patient Tobacco Use Status: Former Tobacco user Tobacco use type: Cigarette Cigarette Packs Per Day: 1 Years Smoked: 20 e-Cigarette/Vaping Use: Never Used Second Hand Smoke Exposure: No service: No Current occupational status: disabled Current occupation: right hand dominant Cognitive needs: No Hearing needs: No Vision needs: Yes Female Reproductive History Menstrual Age of Menarche: 14 Physical Exam Vital Signs: Last Vital Signs Pulse 74 09/15/24 14:08 Resp 18 09/15/24 14:08 BP 143/78 H 09/15/24 14:08 Pulse Ox 98 09/15/24 14:08 Oxygen Delivery Method Room Air 09/15/24 14:08 Office Procedures Therapeutic Injection Therapeutic Injection 80867-Ysufxip Point Injection 3 or more All charges added?: Procedure code (CPT) selection complete Office Meds triamcinolone acetonide 40 mg/mL suspension for injection Performing Provider: Poli Tristan MD [place] [facility] Administered by: Poli Tristan MD on 09/15/24 14:44 Dose Route Admin Location Dispensed Lot Number Expiration Date [facility] Batch Freezer Operator 40 mg Infiltration right shoulder 1 mL [id number] 10/24/26 [employer] Total Dispensed Waste 1 mL 0 % bupivacaine (PF) 0.5 % (5 mg/mL) injection solution Performing Provider: Poli Tristan MD Performing [place] [facility] Administered by: Poli Tristan MD on 09/15/24 14:44 Dose Route Admin Location Dispensed Lot Number Expiration Date [facility] Batch Freezer Operator 10 mL Infiltration 10 mL [id number] 01/18/25 [employer] Total Dispensed Waste 10 mL 0 % Assessment & Plan Assessment & Plan (1) Myofascial pain syndrome: Code(s): M79.18 - Myalgia, other site Category: Medical Plan: Trigger point injection. After obtaining informed consent the patient was positioned sitting on examination table. The right upper back was prepped with ChloraPrep most tender points were palpated and marked. After that injection into the upper portion of the trapezius muscle, into the latissimus dorsi muscle, rhomboid minor muscle as well as into the infra scapular muscle was performed in each side spreading the medication in fan-like fashion. Upon completion of the procedure the needle was withdrawn sterile Band-Aids were applied. The patient tolerated the procedure well. Total dose of bupivacaine 0.5% was 10 mL total dose of Kenalog was 40 mg. (2) Spondylosis of lumbosacral region without myelopathy or radiculopathy: Code(s): M47.817 - Spondylosis without myelopathy or radiculopathy, lumbosacral region Category: Medical Plan Anitha is back in my office to receive trigger point injection. The report of the procedure see as above. She is here today after repeat radiofrequency ablation L3, L4, dorsal ramus L5 bilateral she reports good pain relief, better mobility better social interactions better activities of daily living. She requested to perform trigger point injection. It was performed as above. Patient tolerated the procedure well. Next appointment is as needed. Orders: Orders AMB Trigger Point Injection Today M79.18 - Myalgia, other site Coding Level of Care Code Procedure Only Diagnoses Myofascial pain syndrome M79.18 Spondylosis of lumbosacral region without myelopathy or radiculopathy M47.817 CPT Codes Therapeutic Injection - Ther Injection 2: 31141-Cbtogml Point Injection 3 or more ([id number])
[2024-09-15 14:08] VITALS: BP 143/78; PULSE 74; RESP 18; O2SAT 98
== END 2024-09-15 14:42 | disposition home or self-care (01) ==
LOC: HO.PMC 13:47
PROVIDERS: PCP Internal Medicine; Visit Provider Anesthesiology
DX: M79.18 Myalgia, other site (principal); M47.817 Spondylosis without myelopathy or radiculopathy, lumbosacral region
CPT/HCPCS: 20553

== ENCOUNTER 2024-09-29 09:00 | Outpatient (RCR) | payer OTHER, SELFPAY ==
[2024-08-25 09:18] VITALS: BP 157/88; PULSE 88; RESP 18; TEMP 36.6
[2024-09-01 09:18] VITALS: BP 135/71; PULSE 94; RESP 18; TEMP 36.6
[2024-09-08 07:56] VITALS: BP 142/71; PULSE 80; RESP 16; TEMP 36.6; O2SAT 100
[2024-09-15 08:51] VITALS: BP 153/88; PULSE 83; RESP 16; TEMP 36.3; O2SAT 100
[2024-09-22 09:00] VITALS: BP 147/88; PULSE 91; RESP 16; TEMP 36.9; O2SAT 96
[2024-09-29 08:49] VITALS: BP 134/72; PULSE 93; RESP 16; TEMP 36.3; O2SAT 97
[2024-09-29 09:13] LABS: Hematocrit 35.4 % (37.0-47.0); Hemoglobin 12.1 g/dl (12.0-16.0); Mean Corpuscular HGB Conc 34.2 g/dl (31.0-35.0); Mean Corpuscular Hemoglobin 27.5 pg (27.0-33.0); Mean Corpuscular Volume 80.5 fL (80.0-98.0); NRBC Abs Auto 0.000 X10*3/uL (0.0-0.012); NRBC Pct Auto 0.0 /100WBC (0.0-0.2); Platelet Count 265 X10*3/uL (160-400); Red Blood Count 4.40 X10*6/uL (4.20-5.50); White Blood Count 7.3 X10*3/uL (4.8-10.8)
[2024-09-29 10:58] LABS: Ferritin 127 ng/mL (10-250)
== END 2024-09-29 09:20 | disposition home or self-care (01) ==
LOC: HO.INF 09:00
PROVIDERS: Visit Provider Nurse Practitioner Family
DX: D64.9 Anemia, unspecified (principal)
CPT/HCPCS: 36415; 82728; 85027; 96365; J1756

== ENCOUNTER 2024-09-29 10:10 | Outpatient (AMB) | payer OTHER, SELFPAY ==
--- NOTE | 2024-09-29 10:07 | MHC.OFFVISWM ---
VS Expanded 09/29/24 10:11 Height 5 ft 9 in Weight 166 lb BMI 24.5 Intake Visit Reasons: TV LRYGB 07/20/15 Primer Waterproofing Machine Operator Required: Yes Primer Waterproofing Machine Operator Name: Evangelist Michel [id number] Information Interpreted: clinical only Allergies adhesive tape (ADHESIVE TAPE) Allergy (Intermediate, Verified 09/15/24 14:08) RASH pioglitazone (From ACTOS) Allergy (Intermediate, Verified 09/15/24 14:08) facial edema,rash latex Allergy (Mild, Verified 09/15/24 14:08) Rash Medication List - Last Reconciled 09/29/24 by TAHMINA Anne acetaminophen (Tylenol Extra Strength) 500 mg PO Q6H PRN acetone (urine) test (Ketone Urine Test strips) As directed glucose over 300, illness, nausea, vomiting t.i.d. albuterol sulfate 90 mcg/actuation 1 inh inhalation QID PRN albuterol sulfate 2.5 mg (3 mL) inhalation QID PRN 25 days artifi.tears(hypromellose)(PF) 0.3% 1 drp ophthalmic-Right Q4-6H PRN ascorbate calcium (vitamin C) 500 mg PO DAILY blood pressure kit-extra large As directed blood sugar diagnostic (FreeStyle Lite Strips) TEST 4 TIMES DAILY blood-glucose meter (FreeStyle Lite Meter kit) TEST 4 TIMES DAILY buspirone 15 mg PO TID cane As directed cetirizine (Zyrtec) 10 mg PO DAILY 90 days cholecalciferol (vitamin D3) 50 mcg PO DAILY 90 days citalopram 10 mg PO DAILY cyanocobalamin (vitamin B-12) 1,000 mcg sublingual DAILY cyclobenzaprine 10 mg PO TID PRN diclofenac sodium 75 mg PO BID docusate sodium 100 mg PO DAILY empagliflozin (Jardiance) 10 mg PO DAILY 30 days ergocalciferol (vitamin D2) 1,250 mcg PO QWEEK 90 days escitalopram oxalate 5 mg PO DAILY fluticasone propionate 50 mcg/actuation (Flonase Allergy Relief) 1 spray intranasal DAILY 30 days folic acid 1 mg PO DAILY furosemide 20 mg PO BID 90 days gabapentin 100 mg PO TID 30 days glucagon 3 mg/actuation (Baqsimi) 3 mg intranasal .prn PRN 30 days MDD 6 mg [glucose tablets 15 grams PO .prn PRN 30 days MDD 12 tablets] hydrocortisone 2.5% (Proctozone-HC) 1 appl VA BID PRN hydrocortisone-pramoxine 1-1 % (Proctofoam HC) 1 appl VA DAILY hydroxyzine HCl 1 - 2 tabs PO QID ibuprofen 400 mg PO TID PRN insulin degludec (Tresiba FlexTouch U-200 insulin) 70 units (0.35 mL) subcut DAILY 30 days insulin lispro (Humalog KwikPen U-200 Insulin) up to 425 units per day via pump subcutaneously use as directed; 30 days insulin syringe-needle U-100 (Advocate Syringes) Use 1 needle once a month lidocaine 5% (Lidoderm) 1 patch topical DAILY PRN MDD remove after 12 hours lisinopril 20 mg PO DAILY methylcellulose (laxative) (Citrucel Sugar Free oral powder) 2 grams PO DAILY PRN montelukast 10 mg PO DAILY 90 days nebulizers (AerSyCara Locale II Nebulizer) As directed nortriptyline 10 mg PO BEDTIME ondansetron 4 mg PO Q6-8H PRN oxycodone-acetaminophen 5-325 mg 1 tab PO Q8H PRN 30 days pantoprazole 40 mg PO DAILY 30 days pen needle, diabetic As directed qid prn pump failure pen needle, diabetic (Comfort EZ Pen [place]) As directed once daily, prn pump failure can increase to qid prochlorperazine maleate 10 mg PO TID PRN rosuvastatin 40 mg PO DAILY 90 days Shower Chair As directed simethicone (Gas Relief Extra Strength) 125 mg PO TID-QID PRN [skin tac apply to skin at pump site and sensor site after cleansing with alcohol.Insert pump cannula/sensor after skin tac has allowed to dry. Use on pump every three days, every 10 at sensor site.] syringe with needle (Massive Luer Slip Syringe-Needle) For vitamin B12 injection syringe with needle, safety (BD Safety-Jone Detachable Needle) Use 1 syringe once a month thiamine HCl (vitamin B1) 1 tab PO DAILY tirzepatide (Mounjaro) 15 mg (0.5 mL) subcut QWEEK 28 days tizanidine 4 mg PO Q8H PRN 30 days vitamin A 1 cap PO DAILY HPI Comments Details: This?is a?49?yo F who is s/p RYGB 07/20/2015. Last measured weight Weight today is 166 pounds with a BMI of 24.5 Pt is interested in skin removal surgery. She reports issues of excess skin of abdomen which has become bothersome. She has developed a rash in the skin folds which is itchy. She has tried an antifungal cream prescribed by her PCP to try to prevent fungal rashes and itchy skin. Moisture collects in the skin folds and smells unpleasant so she has to clean more frequently to avoid this. She has to wear a supportive waistband/compression of abdominal skin at all times to help hold excess skin in place. She has noticed that activities of daily living are more difficult such as walking, bending, and squatting down and her range of motion can be limited. Also reports excess skin of the upper arms. She reports chafing of upper arms when skin rubs against the torso. She cannot wear sleeveless shirts, has to wear longer sleeves to prevent rashes. She has to use talc powder here. It is difficult to have full range of motion of her arms due to the heaviness of the excess skin when she tries to raise them above her head. [facility] Medical History Bunion of great toe Peripheral vascular disease of lower extremity Cellulitis Uncontrolled type 2 diabetes mellitus with hyperglycemia Physical exam Cellulitis of toe of right foot Hospital discharge follow-up Goiter Onychomycosis Vitamin D deficiency T2DM (type 2 diabetes mellitus) Left ankle pain B12 deficiency Left leg pain Acid reflux History of colonic polyps Chronic fatigue Carpal tunnel syndrome Daytime hypersomnia Autoimmune thyroiditis Fibromyalgia Morbid obesity Spondylosis, thoracic, 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 spine without myelopathy History of ulcer disease Sessile colonic polyp Obesity 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 disease director long term care (current) use of insulin Diabetic nephropathy associated with type 2 diabetes mellitus Diabetic retinopathy associated with type 2 diabetes mellitus Diabetic polyneuropathy associated with type 2 diabetes mellitus Iron (Fe) deficiency anemia History of Graves' disease Lumbar degenerative disc disease Back pain Anxiety and depression GERD (gastroesophageal reflux disease) Asthma Hyperlipidemia Hypertension Diabetes mellitus Polyarthralgia Surgical History History of carpal tunnel surgery of right wrist H/O endoscopy History of cataract extraction History of lumpectomy of left breast History of carpal tunnel surgery of left wrist Hx of section Hx laparoscopic cholecystectomy Hx of esophagogastroduodenoscopy Hx of colonoscopy H/O gastric bypass Family History Father Diabetes Hypertension Mother Diabetes Hypertension Maternal Grandmother Colon cancer Paternal Aunt Cancer of ear Social History Household Members: Family Housing: House Are you a primary primary care coordinator to a significant other at home: No Do you presently have visiting nurse or other home services: No Alcohol intake: never Patient Tobacco Use Status: Former Tobacco user Tobacco use type: Cigarette Cigarette Packs Per Day: 1 Years Smoked: 20 e-Cigarette/Vaping Use: Never Used Second Hand Smoke Exposure: No service: No Current occupational status: disabled Current occupation: right hand dominant Cognitive needs: No Hearing needs: No Vision needs: Yes Female Reproductive History Menstrual Age of Menarche: 14 Telehealth Telehealth Telehealth Platform: Telephone Location of provider rendering services: practice address Location of patient: address on file Patient Identification confirmed using: Name, : Yes Telehealth method: voice only Patient verbally consented to treatment: Yes Patient verbally consented to billing insurance company: Yes Patient informed of any privacy concerns related to visit: Yes Minutes spent on Phone/Video with Pt.: 18 Assessment & Plan Assessment & Plan (1) Excess skin: Code(s): L98.7 - Excessive and redundant skin and subcutaneous tissue Category: Medical Plan Pt has done very well with weight loss, achieving healthy BMI. She is experiencing issues of excess skin of abdomen resulting in frequent painful, itchy, malodorous rashes which are unrelieved by topical antifungals. In addition she is experiencing limitations/discomfort in activities of daily living, including walking, bending. She requires the use of special clothing at all times to try to prevent discomfort but her issues have not been completely relieved by conservative measures. She would benefit from definitive treatment of panniculectomy. In addition, she is experiencing issues of excess skin of upper arms resulting in frequent chafing, requiring the use of special clothing at all times and resulting in limitation of range of motion and discomfort due to the heaviness of the excess skin. RTC 6-8w for in person visit, will monitor maintenance of weight as well. Pt will get name of the prescription from her PCP by next visit.
[2024-09-29 10:11] VITALS: BMI 24.5
--- OUTSIDE RECORDS SUMMARY | 2024-09-29 10:47 | XMS_ITS | Clinical Summary ---
Author Organization [address] [facility] Address [address] [place] [address] Phone Care Team Providers Care Animal Geneticist Name Role Phone Analilia Schumacher MD Primary Care Provider [phone] Social History Tobacco Use Types Packs/Day Years Used Date Smoking Tobacco: Never Assessed Comments Unknown Sex and Gender Information Value Date Recorded Sex Assigned at Not on file Legal Sex Female 10:48 PM EST Gender Identity Not on file Sexual Orientation Not on file Plan of Treatment Upcoming Encounters Date Type Department Care Team ([facility] Contact Info) Description 10/07/2024 9:30 AM EDT Consult Orthopedic Surgery [place] [id number] [phone] Kali Artis, DPM [address] [address] Health Maintenance Due Date Last Done Comments [...] complete this topic Insurance [place] - [place] [facility] Care Teams Animal Geneticist Relationship Specialty Start Date End Date Analilia Schumacher MD [address] [place] [address] , [address] [facility] D/B/A: [facility] [place], [place] PCP - General Internal Medicine 12/22/17
--- OUTSIDE RECORDS SUMMARY | 2024-09-29 10:47 | XMS_ITS | Clinical Summary ---
Author Organization [facility] Address [address] [place] [id number] Care Team Providers Care Back Tender Pulp Drier Name Role Phone Analilia Chaidez MD Primary Care Provider [phone] Allergies Active Allergy Reactions Criticality Noted Date [...] this topic Insurance Medicaid Medicaid Care Teams Back Tender Pulp Drier Relationship Specialty Start Date End Date Analilia Chaidez MD [address] [place], [place] PCP - General 03/06/20
== END 2024-09-29 10:29 | disposition home or self-care (01) ==
LOC: HO.HBS 10:11
PROVIDERS: PCP Internal Medicine; Visit Provider Physician Assistant Surgical
DX: L98.7 Excessive and redundant skin and subcutaneous tissue (principal)
CPT/HCPCS: 99214

== ENCOUNTER 2024-10-06 14:54 | Outpatient (AMB) | payer OTHER, SELFPAY ==
--- OUTSIDE RECORDS SUMMARY | 2024-10-06 15:01 | XMS_ITS | Clinical Summary ---
Author Organization [facility] Address [address] [place] [id number] Care Team Providers Care Pickle Cutter Name Role Phone Analilia Chaidez MD Primary Care Provider [phone] Allergies Active Allergy Reactions Criticality Noted Date [...] this topic Insurance Medicaid Medicaid Care Teams Pickle Cutter Relationship Specialty Start Date End Date Analilia Chaidez MD [address] [place], [place] PCP - General 03/06/20
--- OUTSIDE RECORDS SUMMARY | 2024-10-06 15:01 | XMS_ITS | Clinical Summary ---
Author Organization 175 [facility] Address [address] [place] [address] Phone Care Team Providers Care Instructor Apparel Manufacture Name Role Phone Analilia Schumacher MD Primary Care Provider [phone] Social History Tobacco Use Types Packs/Day Years Used Date Smoking Tobacco: Never Assessed Comments Unknown Sex and Gender Information Value Date Recorded Sex Assigned at Not on file Legal Sex Female 10:48 PM EST Gender Identity Not on file Sexual Orientation Not on file Plan of Treatment Upcoming Encounters Date Type Department Care Team ([facility] Contact Info) Description 10/07/2024 9:30 AM EDT Consult Orthopedic Surgery [place] [address] [phone] Kali Artis, DPM [address] [address] Health Maintenance Due Date Last Done Comments [...] complete this topic Insurance [place] - [place] [facility] Care Teams Instructor Apparel Manufacture Relationship Specialty Start Date End Date Analilia Schumacher MD [address] [place] [address] , [address] [facility] D/B/A: [facility] [place], [place] PCP - General Internal Medicine 12/22/17
--- NOTE | 2024-10-06 15:04 | A.OFFPC_ITS ---
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 albuterol sulfate 90 mcg/actuation 1 inh inhalation QID PRN albuterol sulfate 2.5 mg (3 mL) inhalation QID PRN 25 days artifi.tears(hypromellose)(PF) 0.3% 1 drp ophthalmic-Right Q4-6H PRN ascorbate calcium (vitamin C) 500 mg PO DAILY blood pressure kit-extra large As directed blood sugar diagnostic (FreeStyle Lite Strips) TEST 4 TIMES DAILY blood-glucose meter (FreeStyle Lite Meter kit) TEST 4 TIMES DAILY buspirone 15 mg PO TID cane As directed cetirizine (Zyrtec) 10 mg PO DAILY 90 days cholecalciferol (vitamin D3) 50 mcg PO DAILY 90 days citalopram 10 mg PO DAILY cyanocobalamin (vitamin B-12) 1,000 mcg sublingual DAILY cyclobenzaprine 10 mg PO TID PRN diclofenac sodium 75 mg PO BID docusate sodium 100 mg PO DAILY empagliflozin (Jardiance) 10 mg PO DAILY 30 days ergocalciferol (vitamin D2) 1,250 mcg PO QWEEK 90 days escitalopram oxalate 5 mg PO DAILY fluticasone propionate 50 mcg/actuation (Flonase Allergy Relief) 1 spray intranasal DAILY 30 days folic acid 1 mg PO DAILY furosemide 20 mg PO BID 90 days gabapentin 100 mg PO TID 30 days glucagon 3 mg/actuation (Baqsimi) 3 mg intranasal .prn PRN 30 days MDD 6 mg [glucose tablets 15 grams PO .prn PRN 30 days MDD 12 tablets] hydrocortisone 2.5% (Proctozone-HC) 1 appl MA BID PRN hydrocortisone-pramoxine 1-1 % (Proctofoam HC) 1 appl MA DAILY hydroxyzine HCl 1 - 2 tabs PO QID ibuprofen 400 mg PO TID PRN insulin degludec (Tresiba FlexTouch U-200 insulin) 70 units (0.35 mL) subcut DAILY 30 days insulin lispro (Humalog KwikPen U-200 Insulin) up to 425 units per day via pump subcutaneously use as directed; 30 days insulin syringe-needle U-100 (Advocate Syringes) Use 1 needle once a month lidocaine 5% (Lidoderm) 1 patch topical DAILY PRN MDD remove after 12 hours lisinopril 20 mg PO DAILY montelukast 10 mg PO DAILY 90 days nebulizers (AeroEclipse II Nebulizer) As directed ondansetron 4 mg PO Q6-8H PRN oxycodone-acetaminophen 5-325 mg 1 tab PO Q8H PRN 30 days pantoprazole 40 mg PO DAILY 30 days pen needle, diabetic As directed qid prn pump failure pen needle, diabetic (Comfort EZ Pen [place]) As directed once daily, prn pump failure can increase to qid prochlorperazine maleate 10 mg PO TID PRN rosuvastatin 40 mg PO DAILY 90 days Shower Chair As directed simethicone (Gas Relief Extra Strength) 125 mg PO TID-QID PRN [skin tac apply to skin at pump site and sensor site after cleansing with alcohol.Insert pump cannula/sensor after skin tac has allowed to dry. Use on pump every three days, every 10 at sensor site.] syringe with needle (Samplesaint Luer Slip Syringe-Needle) For vitamin B12 injection syringe with needle, safety (BD Safety-Jone Detachable Needle) Use 1 syringe once a month tirzepatide (Mounjaro) 15 mg (0.5 mL) subcut QWEEK 28 days vitamin A 1 cap PO DAILY Tobacco use date assessed: 10/06/24 Dental Screening Dental Screen Date: 10/06/24 Did you have a dental visit in the last 12 months?: Yes Did you have a dental problem in the last 6 months where you did not have access to dental care?: No Was dental information given to patient?: Patient has dentist HPI HPI Comments History of Present Illness Details The patient is a 49-year-old female presenting with diabetes mellitus management and evaluation of a post-surgical cyst with purpura. The diabetes mellitus was last evaluated with an A1c test in July, less than three months ago, and the patient is awaiting another test to proceed with surgery for an abscess. The patient is on Jardiance 10 mg and Treciva 70 units for diabetes management. The post-surgical cyst developed in January of the previous year, resulting in purpura, and may require removal of the capsule. The patient reports that the surgeon plans to excise the surrounding tissue. The patient also experiences anxiety and depression, managed with Citalopram and Hydroxyzine. Additionally, the patient reports back pain radiating to the shoulder and elbow, which may require physical therapy. [facility] Medical History (Updated 10/06/24 @ 16:12 by Analilia Schumacher MD) Bunion of great toe Peripheral vascular disease of lower extremity Cellulitis Uncontrolled type 2 diabetes mellitus with hyperglycemia Physical exam Cellulitis of toe of right foot Hospital discharge follow-up Goiter Onychomycosis Vitamin D deficiency T2DM (type 2 diabetes mellitus) Left ankle pain B12 deficiency Left leg pain Acid reflux History of colonic polyps Chronic fatigue Carpal tunnel syndrome Daytime hypersomnia Autoimmune thyroiditis Fibromyalgia Morbid obesity Spondylosis, thoracic, 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 spine without myelopathy History of ulcer disease Sessile colonic polyp Obesity 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 Diabetic nephropathy associated with type 2 diabetes mellitus Diabetic retinopathy associated with type 2 diabetes mellitus Diabetic polyneuropathy associated with type 2 diabetes mellitus Iron (Fe) deficiency anemia History of Graves' disease Lumbar degenerative disc disease Back pain Anxiety and depression GERD (gastroesophageal reflux disease) Asthma Hyperlipidemia Hypertension Diabetes mellitus Polyarthralgia Surgical History History of carpal tunnel surgery of right wrist H/O endoscopy History of cataract extraction History of lumpectomy of left breast History of carpal tunnel surgery of left wrist Hx of section Hx laparoscopic cholecystectomy Hx of esophagogastroduodenoscopy Hx of colonoscopy H/O gastric bypass Family History Father Diabetes Hypertension Mother Diabetes Hypertension Maternal Grandmother Colon cancer Paternal Aunt Cancer of ear Social History Household Members: Family Housing: House Are you a primary animal care assistant to a significant other at home: No Do you presently have visiting nurse or other home services: No Alcohol intake: never Patient Tobacco Use Status: Former Tobacco user Tobacco use type: Cigarette Cigarette Packs Per Day: 1 Years Smoked: 20 e-Cigarette/Vaping Use: Never Used Second Hand Smoke Exposure: No service: No Current occupational status: disabled Current occupation: right hand dominant Cognitive needs: No Hearing needs: No Vision needs: Yes Female Reproductive History Menstrual Age of Menarche: 14 Questionnaire PHQ-9 Over the last 2 weeks, how often have you been bothered by any of the following problems? 1. Little interest or pleasure in doing things: more than half the days 2. Feeling down, depressed, or hopeless: several days 3. Trouble falling or staying asleep, or sleeping too much: several days 4. Feeling tired or having little energy: more than half the days 5. Poor appetite or overeating: not at all 6. Feeling bad about yourself - or that you are a failure or have let yourself or your family down: not at all 7. Trouble concentrating on things, such as reading the newspaper or watching television: more than half the days 8. Moving or speaking so slowly that other people could have noticed. Or the opposite - being so fidgety or restless that you have been moving around a lot more than usual: several days 9. Thoughts that you would be better off or of hurting yourself in some way: not at all Total score: 9 Depression Screening Interpretation: Positive Depression Screening Follow-up: Existing condition, In treatment and Follow-up Visit Requested Depression Screening Done: Yes 79333 - PHQ-9 Billing: Yes Source: Developed by Drs. Parmjit Be, Yessi Gold, Ji Mahmood and colleagues, with an educational anni from [employer]. Thrive Questionnaire Date Thrive assessed: 10/06/24 I am a: Patient What is your living situation today?: I have a steady place to live Within the past 12 months, did the food you bought not last and you didn't have the money to get more?: Sometimes True Within the past 12 months, did you worry whether your food would run out before you got money to buy more?: Sometimes True Do you have trouble paying for medicines?: Yes Do you have trouble getting transportation to medical appointments?: Yes Do you have trouble paying your heating and electricity bill?: Yes Do you have trouble taking care of your child, family member or friend?: No Do you have trouble with day-to-day activities such as bathing, preparing meals, shopping, managing finances, etc.?: No Are you currently unemployed and looking for a job?: Yes Are you interested in more education?: No Please select the resources that you would like help with: Housing/Nursing Home, Food, Utilities and Care for elder or disabled Currently or been in a relationship where the following occur: No concerns reported THRIVE Score: 4 AUDIT C Alcohol Use Questionnaire (AUDIT-C) 1. How often do you have a drink containing alcohol?: Never Total Score: 0 Score Reviewed/Action Taken: No MARCO-7 AMB Questionnaire MARCO-7 Date MARCO - 7 assessed: 10/06/24 Feeling nervous, anxious, or on edge: 1 = Several days Not being able to stop or control worryin = Several days Worrying too much about different things: 1 = Several days Trouble relaxin = More than half the days Being so restless that it is hard to sit still: 2 = More than half the days Becoming easily annoyed or irritable: 1 = Several days Feeling afraid as if something awful might happen: 1 = Several days Total MARCO-7 score (0-4 normal; 5-9 mild; 10-14 moderate; 15-21 severe): 9 Source: Developed by Drs. Parmjit Be, Yessi Gold, Ji Mahmood and colleagues, with an educational anni from [employer]. MARCO-7 Assessment Billing MARCO-7 Assessment Tool: MARCO-7 Assessment 87395 Review of Systems Const All systems reviewed & are unremarkable except as noted in HPI and below Card Denies chest pain at rest, Denies chest pain with activity, Denies edema, Denies irregular heart rhythm, Denies claudication, Denies dyspnea, Denies dyspnea on exertion, Denies orthopnea, Denies paroxysmal nocturnal dyspnea and Denies slow heart rate Resp Denies cough, Denies dyspnea and Denies dyspnea on exertion GI Denies abdominal pain, Denies change in bowel habits, Denies excessive flatus, Denies nausea and Denies vomiting Physical exam (Primary Care) Vital Signs: Last Vital Signs Pulse 66 10/06/24 15:06 BP 106/78 10/06/24 15:06 Pulse Ox 97 10/06/24 15:06 Oxygen Delivery Method Room Air 10/06/24 15:06 BMI result Body Mass Index 24.7 Tobacco/Smoking Status: Tobacco use Status Tobacco use date assessed 10/06/24 10/06/24 15:12 Patient Tobacco Use Status Former Tobacco user 10/06/24 15:12 Tobacco use type Cigarette 10/06/24 15:12 e-Cigarette/Vaping Use Never Used 10/06/24 15:12 PHQ-9: PHQ-9 Score PHQ-9: Total score 9 10/06/24 16:02 Depression Screening Interpretation: Positive Depression Screening Follow-up: Existing condition, In treatment and Follow-up Visit Requested Thrive Assessment: Date of Thrive Assessment Date Thrive assessed 10/06/24 10/06/24 15:12 Currently or been in a relationship where the following occur: No concerns reported Resp Effort & Inspection: normal respiratory effort Auscultation: clear to auscultation bilaterally Cardio Jugular venous distension: no JVD Rate: regular rate Rhythm: regular rhythm Heart sounds: S1 normal heart sound present and S2 normal heart sound present Coding Level of Care Code Est Pt Level 4 (22552) Complex EM visit Add On G2211 Diagnoses Right shoulder pain M25.511 Moderate major depression F32.1 Essential hypertension I10 Hyperlipidemia LDL goal <70 E78.5 Uncontrolled type 2 diabetes mellitus with hyperglycemia E11.65 Autoimmune thyroiditis E06.3 Diabetic retinopathy associated with type 2 diabetes mellitus E11.319 Additional Codes MARCO-7 Assessment Billing - MARCO-7 Assessment Tool: MARCO-7 Assessment 24210 ([id number]) PHQ-9 - 96882 - PHQ-9 Billing: Yes ([id number]) Time Spent (min) 24 Assessment & Plan Assessment & Plan (1) Right shoulder pain: Code(s): M25.511 - Pain in right shoulder Category: Medical (2) Moderate major depression: Code(s): F32.1 - Major depressive disorder, single episode, moderate Category: Medical (3) Essential hypertension: Code(s): I10 - Essential (primary) hypertension Category: Medical (4) Hyperlipidemia LDL goal <70: Code(s): E78.5 - Hyperlipidemia, unspecified Category: Medical (5) Uncontrolled type 2 diabetes mellitus with hyperglycemia: Code(s): E11.65 - Type 2 diabetes mellitus with hyperglycemia Category: Medical (6) Autoimmune thyroiditis: Code(s): E06.3 - Autoimmune thyroiditis Category: Medical (7) Diabetic retinopathy associated with type 2 diabetes mellitus: Code(s): E11.319 - Type 2 diabetes mellitus with unspecified diabetic retinopathy without macular edema Category: Medical Plan The plan includes monitoring the patient's diabetes mellitus with regular A1c testing to ensure optimal management before proceeding with any surgical interventions. The patient is advised to continue current medications, including Jardiance and Treciva, and to follow up with the wafer production worker as needed. For the post-surgical cyst, surgical consultation is recommended to assess the need for capsule removal and excision of surrounding tissue. The patient should report any changes in the cyst's appearance or symptoms. Management of anxiety and depression will continue with Citalopram and Hydroxyzine, with adjustments as necessary based on symptomatology. Physical therapy is suggested for the back pain radiating to the shoulder and elbow to improve mobility and reduce discomfort. Patient was informed and verbally consented to the use of an ambient scribe for clinic note documentation during this visit. Orders: Orders Hemoglobin A1c Today E11.9 - Type 2 diabetes mellitus without complications XR shoulder RT min 2V Today M25.511 - Pain in right shoulder XR elbow RT 2V Today M25.521 - Pain in right elbow PT Evaluation and Treatment Today M25.511 - Pain in right shoulder, M25.521 - Pain in right elbow
[2024-10-06 15:06] VITALS: BP 106/78; PULSE 66; O2SAT 97; BMI 24.7
== END 2024-10-06 16:14 | disposition home or self-care (01) ==
LOC: HO.HMCH 14:55
PROVIDERS: PCP Internal Medicine; Visit Provider Internal Medicine
DX: M25.511 Pain in right shoulder (principal); F32.1 Major depressive disorder, single episode, moderate; E11.65 Type 2 diabetes mellitus with hyperglycemia; E11.319 Type 2 diabetes mellitus with unspecified diabetic retinopathy without macular edema; E78.5 Hyperlipidemia, unspecified; I10 Essential (primary) hypertension; E06.3 Autoimmune thyroiditis

== ENCOUNTER → 2024-10-06 14:54 | Outpatient (BNVA) | payer OTHER, SELFPAY | PROVIDERS: PCP Internal Medicine; Visit Provider Internal Medicine | DX: E11.319 Type 2 diabetes mellitus with unspecified diabetic retinopathy without macular edema (principal); F41.9 Anxiety disorder, unspecified; F32.A Depression, unspecified; M25.511 Pain in right shoulder; M25.521 Pain in right elbow; F32.1 Major depressive disorder, single episode, moderate; I10 Essential (primary) hypertension; E78.5 Hyperlipidemia, unspecified; E11.65 Type 2 diabetes mellitus with hyperglycemia; E06.3 Autoimmune thyroiditis; Z79.899 Other long term (current) drug therapy | CPT/HCPCS: 96127; 99212 ==

== ENCOUNTER 2024-10-18 08:48 | Outpatient (AMB) | payer OTHER, SELFPAY ==
--- OUTSIDE RECORDS SUMMARY | 2024-10-18 09:18 | XMS_ITS | Clinical Summary ---
Author Organization [facility] Facility Address [address] [place] [id number] Care Team Providers Care Social Service Manager Name Role Phone Analilia Chaidez MD Primary Care Provider [phone] Allergies Active Allergy Reactions Criticality Noted Date [...] this topic Insurance Medicaid Medicaid Care Teams Social Service Manager Relationship Specialty Start Date End Date Analilia Chaidez MD [address] [place], [place] PCP - General 03/06/20
--- OUTSIDE RECORDS SUMMARY | 2024-10-18 09:18 | XMS_ITS | Clinical Summary ---
Author Organization 175 [facility] Address [address] [place] [address] Phone Care Team Providers Care Title Investigator Name Role Phone Analilia Schumacher MD Primary Care Provider [phone] Allergies No known active allergies Medications acetaminophen (TYLENOL) 500 mg tablet Take 1 tablet (500 mg total) by mouth every 6 (six) hours if needed for mild pain. Active urine acetone test strips (ACETONE, URINE, TEST MISC) by in vitro route. Active albuterol HFA (PROAIR HFA ; PROVENTIL HFA ; VENTOLIN HFA) 90 mcg/actuation inhaler Inhale 2 puffs by mouth every 6 (six) hours if needed for wheezing. Active albuterol 2.5 mg /3 mL (0.083 %) nebulizer solution Take 3 mL (2.5 mg total) by nebulization every 6 (six) hours if needed for wheezing. Active ascorbate calcium, vitamin C, 500 mg tablet Take 500 mg by mouth 1 (one) time each day. Active blood pressure monitor (Blood Pressure Kit) kit Active glucose blood test strip 1 each by Other route if needed. Use as instructed Active busPIRone (BUSPAR) 15 mg tablet Take 1 tablet (15 mg total) by mouth 2 (two) times a day. Active canagliflozin-m etformin 50-500 mg tablet Take 300 mg by mouth 1 (one) time each day. Active cane device Active cetirizine (ZyrTEC) 10 mg chewable tablet Chew 1 (one) time each day. Active cholecalciferol (VITAMIN D-3) 25 mcg (1,000 unit) tablet Take 1 tablet (1,000 Units total) by mouth 1 (one) time each day. Active cyclobenzaprine (FLEXERIL) 10 mg tablet Take 1 tablet (10 mg total) by mouth 3 (three) times a day if needed for muscle spasms. Active diclofenac (VOLTAREN) 75 mg EC tablet Take 1 tablet (75 mg total) by mouth 2 (two) times a day. Do not crush, chew, or split. Active docusate sodium (COLACE) 100 mg capsule Take 1 capsule (100 mg total) by mouth 1 (one) time each day. Active calcium citrate-vitamin D 250 mg-2.5 mcg (100 unit) per tablet Take 1 tablet by mouth 2 (two) times a day. Active escitalopram (LEXAPRO) 5 mg tablet Take 1 tablet (5 mg total) by mouth 1 (one) time each day. Active ferrous sulfate 325 mg (65 mg iron) EC tablet Take 1 tablet (325 mg total) by mouth 3 (three) times a day with meals. Do not crush, chew, or split. Active fluticasone propionate (FLONASE) 50 mcg/actuation nasal spray Administer 1 spray into each nostril 1 (one) time each day. Shake gently. Before first use, prime pump. After use, clean tip and replace cap. Active furosemide (LASIX) 20 mg tablet Take 1 tablet (20 mg total) by mouth 2 (two) times a day. Active gabapentin (NEURONTIN) 100 mg capsule Take 1 capsule (100 mg total) by mouth 3 (three) times a day. Active glucagon (BAQSIMI) 3 mg/actuation nasal spray Administer 3 mg into one nostril. Active hydrocortisone 2.5 % cream Apply topically 2 (two) times a day. Active pramoxine-hydro cortisone (ANALPRAM HC) cream Apply topically 3 (three) times a day. Active ibuprofen (ADVIL,MOTRIN) 400 mg tablet Take 1 tablet (400 mg total) by mouth 3 (three) times a day. Active INSULIN DEGLUDEC SUBQ Inject under the skin. Active insulin lispro (HumaLOG) 100 UNIT/ML patient supplied pump 1 EA by continuous sub-Q infusn (via wearable injector) route continuously. Active lidocaine (LIDODERM) 5 % patch Apply 1 patch topically 1 (one) time each day. Remove & discard patch within 12 hours or as directed by MD. Active lisinopriL (PRINIVIL,ZESTR IL) 20 mg tablet Take 1 tablet (20 mg total) by mouth 1 (one) time each day. Active methylcellulose oral powder Take by mouth 1 (one) time each day. Active montelukast (SINGULAIR) 10 mg tablet Take 1 tablet (10 mg total) by mouth at bedtime. Active nebulizers misc Acti ve nortriptyline (PAMELOR) 10 mg capsule Take 1 capsule (10 mg total) by mouth at bedtime. Active ondansetron (ZOFRAN) 4 mg tablet Take 1 tablet (4 mg total) by mouth every 8 (eight) hours if needed for nausea or vomiting. Active oxyCODONE-aceta minophen (PERCOCET) 5-325 mg per tablet Take 1 tablet by mouth every 8 (eight) hours if needed for severe pain. Max Daily Amount: 3 tablets Active pantoprazole (PROTONIX) 40 mg EC tablet Take 1 tablet (40 mg total) by mouth 1 (one) time each day before breakfast. Do not crush, chew, or split. Active prochlorperazin e (COMPAZINE) 10 mg tablet Take 1 tablet (10 mg total) by mouth every 6 (six) hours if needed for nausea or vomiting. Active rosuvastatin (CRESTOR) 20 mg tablet Take 1 tablet (20 mg total) by mouth 1 (one) time each day. Active simethicone (MYLICON) 125 mg chewable tablet Chew every 6 (six) hours if needed for flatulence. Active thiamine (VITAMIN B-1) 50 mg tablet Take 1 tablet (50 mg total) by mouth 1 (one) time each day. Active tirzepatide 15 mg/0.3 mL syringe Inject 15 mg under the skin every 28 (twenty-eight) days. Active tiZANidine (ZANAFLEX) 4 mg capsule Take 1 capsule (4 mg total) by mouth every 8 (eight) hours if needed for muscle spasms. Active valACYclovir (VALTREX) 1 gram tablet Take 1 tablet (1,000 mg total) by mouth 3 (three) times a day. Active vitamin A 2,400 mcg capsule Take 1 capsule (8,000 Units total) by mouth 1 (one) time each day. Active Active Problems Problem Noted Date Diagnosed Date Bunion of great toe 10/07/2024 Peripheral vascular disease (CMS/HCC V24) 2024 Cellulitis 10/07/2024 Uncontrolled type 2 diabetes mellitus with hyperglycemia ([facility] [place] [place] V24, [facility] [place] [place] V28) 10/07/2024 Onychomycosis 10/07/2024 Vitamin D deficiency 10/07/2024 Type 2 diabetes mellitus ([facility] [place] [place] V24, [facility] [place] [place] V 28) 10/07/2024 Left ankle pain 10/07/2024 B12 deficiency 10/07/2024 Left leg pain 10/07/2024 Acid reflux 10/07/2024 History of colonic polyps 10/07/2024 Chronic fatigue 10/07/2024 Carpal tunnel syndrome 10/07/2024 Daytime hypersomnia 10/07/2024 Autoimmune thyroiditis 10/07/2024 Fibromyalgia 10/07/2024 Morbid obesity ([facility] [place] [place] V24, [facility] [place] [place] V28) 2024 Spondylosis 10/07/2024 History of ulcer disease 10/07/2024 Sessile colonic polyp 10/07/2024 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 ([facility] [place] [place] V24, [facility] [place] [place] V28) 10/07/2024 Encounters Date Type Department Care Team Description 10/07/2024 9:30 AM EDT Consult Orthopedic Surgery - [address] [address] Kali Artis, DPM Dermatophytosis of nail (Primary Dx); Bunion of unspecified foot; Pain in toe of left foot; Pain in toe of right foot; Diabetic mononeuropathy simplex ([facility] [place] [place] V24, [facility] [place] [place] V28); Type II diabetes mellitus with peripheral circulatory disorder ([facility] [place] [place] V24, [facility] [place] [place] V28); Corns and callosities; Metatarsalgia of both feet; Acquired hallux valgus of left foot; Acquired hallux valgus of right foot; Hammer toe of left foot; Acquired hammer toe of right foot from Last 3 Months Social History Tobacco Use Types Packs/Day Years Used Date Smoking Tobacco: Never Assessed Comments Unknown Sex and Gender Information Value Date Recorded Sex Assigned at Not on file Legal Sex Female 10:48 PM EST Gender Identity Not on file Sexual Orientation Not on file Last Filed Vital Signs Vital Sign Reading Time Taken Comments Blood Pressure - - Pulse - - Temperature - - Respiratory Rate - - Oxygen Saturation - - Inhaled Oxygen Concentration - - Weight 75.8 kg (167 lb) 10/07/2024 9:19 AM EDT Height 175.3 cm (5' 9 ) 10/07/2024 9:19 AM EDT Body Mass Index 24.66 10/07/2024 9:19 AM EDT Plan of Treatment Upcoming Encounters Date Type Department Care Team (Late st Contact Info) Description 01/10/2025 9:15 AM EST Office Visit Orthopedic Surgery - [place] [id number] [phone] Kali Artis, DPM [address] [address] Health Maintenance Due Date Last Done Comments Breast Cancer Screening 1976 Diabetes: Annual GFR (Glomerular Filtration Rate) 1976 Diabetes: Annual Foot Exam 1986 Diabetes: Annual Retina Eye Exam 1986 Cervical Cancer Screening: Pap Smear 1997 Depression Screening 02/25/2024 Cholesterol Screening (Lipid Panel) 07/15/2024 Colorectal Cancer Screening: Colonoscopy 07/15/2024 HIV Screening 07/15/2024 Hepatitis C Screening 07/15/2024 Social Influencers of Health Screening 07/15/2024 Diabetes: Annual Urine Albumin-Creatinine Ratio (uACR) 10/07/2024 Diabetes: Blood Sugar Control Test (HGBA1C) 10/07/2024 Influenza Vaccine (#1) 2024 , 11/28/2022, 11/22/2021, Additional history exists DTaP,Tdap,and Td Vaccines (2 - Td or Tdap) 01/27/2034 01/28/2024 Hepatitis A Vaccines Aged Out 02/19/2011, 10/26/2010, 08/20/2010 No longer eligible based on patient's age to complete this topic Hepatitis B Vaccines Completed 02/19/2011, 10/26/2010, 08/20/2010 Pneumococcal Vaccine: Pediatrics (0 to 5 Years) and At-Risk Patients (6 to 49 Years) Completed 09/10/2022, 07/21/2015 COVID-19 Vaccine Completed 12/23/2023, , 11/22/2021, Additional history exists HIB Vaccines Aged Out No longer eligi [...] 20 months Aged Out No longer eligible based on patient's age to complete this topic Varicella Vaccines Aged Out No longer eligible based on patient's age to complete this topic Procedures Procedure Name Priority Date/Time Associated Diagnosis Comments XR FOOT 3+ VIEWS BILAT Routine 10/07/2024 9:14 AM EDT Bunion of unspecified foot from Last 3 Months Results * XR Foot 3+ Views bilat (10/07/2024 9:14 AM EDT) Anatomical Region Laterality Modality Lower Extremities, Foot Bilateral Computed Radiography Narrative 10/07/2024 12:30 PM EDT Right foot 3 views No fracture. No radiopaque foreign joint spaces normal Mild bunion deformity Foot position Pes planus with Talus navicular uncovering decreased calcaneal inclination anterior displaced symes line talus navicular joint to calcaneal cuboid joint Left foot 3 views No fracture. No radiopaque foreign joint spaces normal Mild bunion deformity Foot position Pes planus with Talus navicular uncovering decreased calcaneal inclination anterior displaced symes line talus navicular joint to calcaneal cuboid joint us Kali Artis DPM IMG XR PROCEDURES Final R esult from Last 3 Months Insurance [facility] Care Teams Title Investigator Relationship Specialty Start Date End Date Analilia Schumacher MD [address] [facility] , [address] [facility] RICHARDSON Fuentes PCP - General Internal Medicine 12/22/17
--- NOTE | 2024-10-18 10:00 | MHC.AMDMED ---
Intake Intake Visit Reasons: Set up new pump Technical Education Teacher Required: Yes Technical Education Teacher Language: Plug Shaper Hand Name: Rowdy Jacobo Accompanied by: Self / Same As Patient Allergies adhesive tape (ADHESIVE TAPE) Allergy (Intermediate, Verified 10/06/24 15:59) RASH pioglitazone (From ACTOS) Allergy (Intermediate, Verified 10/06/24 15:59) facial edema,rash latex Allergy (Mild, Verified 10/06/24 15:59) Rash PFSH Medical History Bunion of great toe Peripheral vascular disease of lower extremity Cellulitis Uncontrolled type 2 diabetes mellitus with hyperglycemia Physical exam Cellulitis of toe of right foot Hospital discharge follow-up Goiter Onychomycosis Vitamin D deficiency T2DM (type 2 diabetes mellitus) Left ankle pain B12 deficiency Left leg pain Acid reflux History of colonic polyps Chronic fatigue Carpal tunnel syndrome Daytime hypersomnia Autoimmune thyroiditis Fibromyalgia Morbid obesity Spondylosis, thoracic, 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 spine without myelopathy History of ulcer disease Sessile colonic polyp Obesity Tracee's disease joint 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 Diabetic nephropathy associated with type 2 diabetes mellitus Diabetic retinopathy associated with type 2 diabetes mellitus Diabetic polyneuropathy associated with type 2 diabetes mellitus Iron (Fe) deficiency anemia History of Graves' disease Lumbar degenerative disc disease Back pain Anxiety and depression GERD (gastroesophageal reflux disease) Asthma Hyperlipidemia Hypertension Diabetes mellitus Polyarthralgia Surgical History History of carpal tunnel surgery of right wrist H/O endoscopy History of cataract extraction History of lumpectomy of left breast History of carpal tunnel surgery of left wrist Hx of section Hx laparoscopic cholecystectomy Hx of esophagogastroduodenoscopy Hx of colonoscopy H/O gastric bypass Family History Father Diabetes Hypertension Mother Diabetes Hypertension Maternal Grandmother Colon cancer Paternal Aunt Cancer of ear Social History Household Members: Family Housing: House Are you a primary childcare teacher to a significant other at home: No Do you presently have visiting nurse or other home services: No Alcohol intake: never Patient Tobacco Use Status: Former Tobacco user Tobacco use type: Cigarette Cigarette Packs Per Day: 1 Years Smoked: 20 e-Cigarette/Vaping Use: Never Used Second Hand Smoke Exposure: No service: No Current occupational status: disabled Current occupation: right hand dominant Cognitive needs: No Hearing needs: No Vision needs: Yes Female Reproductive History Menstrual Age of Menarche: 14 Assessment & Plan Assessment & Plan (1) Diabetic polyneuropathy associated with type 2 diabetes mellitus: Code(s): E11.42 - Type 2 diabetes mellitus with diabetic polyneuropathy Plan: Tandem ID: [email or web address] [email or web address] Tandem password: [email or web address] Patient presents for pump training for T slim with control IQ, and Dexcom G7 insulin pump therapy with Humalog U200 Patient at visit to program replacement insulin pump. At this visit we connected insulin pump to T connect deya. demonstrate the patient how to take correction and mealtime boluses through T connect deya Patient continues on Humalog U 200 Patient has upcoming appointment with Dr. Aguayo, at that visit she will transition back to Humulin U 500. Instructed patient not to switch over until we reset insulin pump settings. If she does not change insulin pump settings before starting U500 she is at high risk for hypoglycemia Safety information: Importance of a backup plan, for manual injections, proper prescriptions and emergency supplies ketone strips, and rules for testing for ketones Setting verified by CDCES, Pump Settings:with U200 insulin Basal rate(s) (units/hour) : 12 AM? to 5 AM 6 units / hr 5AM to 9 AM 6 units / hr 9 AM? to 9 PM? 4.2 units / hr 9 PM to 12 AM 6 units / hr Bolus setting Insulin Carbohydrate Ratio (s) 12 AM? to 5 AM?1:3 5 AM? to 9AM ? 1:1.5 9AM to 9 PM 1:2 9 PM to 12 AM 1:1.5 Correction Factor / Sensitivity Factor 12 AM? to 5 AM?1:8 5 AM to 9 AM 1:3 9 AM to 9 PM 1:4 9 PM to 12 AM 1:5 Insulin action time: 5 hours in control IQ Coding Level of Care Code Est Pt Level 1 (63661) Diagnoses Diabetic polyneuropathy associated with type 2 diabetes mellitus E11.42
== END 2024-10-18 10:02 | disposition home or self-care (01) ==
LOC: HO.ENCR 08:49
PROVIDERS: PCP Internal Medicine; Visit Provider Registered Nurse Diabetes Educator
DX: E11.42 Type 2 diabetes mellitus with diabetic polyneuropathy (principal)

== ENCOUNTER → 2024-10-18 08:48 | Outpatient (BNVA) | payer OTHER, SELFPAY | PROVIDERS: PCP Internal Medicine; Visit Provider Registered Nurse Diabetes Educator | DX: E11.42 Type 2 diabetes mellitus with diabetic polyneuropathy (principal) | CPT/HCPCS: 99211 ==

== ENCOUNTER 2024-10-26 08:48 | Outpatient (AMB) | payer OTHER, SELFPAY ==
--- NOTE | 2024-10-26 09:02 | MHC.OFFVISWM ---
VS Expanded 10/26/24 09:17 BP 137/69 Blood Pressure Location Rt brachial Blood Pressure Position Sitting Pulse 85 Pulse Source Pulse Oximeter Temp 97.6 F Temperature Source Temporal Artery Scan Pulse Oximetry 100 Oxygen Delivery Method Room Air Height 5 ft 9 in Weight 166 lb 6.4 oz BMI 24.6 Body Fat % 27.3 Body Fat Mass 45.4 Fat Free Mass 120.8 Visceral Fat Rating 5.0 Body Water % 51.7 Body Water Mass 86.0 Muscle Mass/Score 114.6 Basal Metabolic Rate/Score 1,605 Intake Visit Reasons: (OV) PO LRYGB 07/20/15 Flanging Roll Operator Required: Yes Flanging Roll Operator Name: Vikas [id number] Allergies adhesive tape (ADHESIVE TAPE) Allergy (Intermediate, Verified 10/26/24 09:04) RASH pioglitazone (From ACTOS) Allergy (Intermediate, Verified 10/26/24 09:04) facial edema,rash latex Allergy (Mild, Verified 10/26/24 09:04) Rash Medication List - Last Reconciled 10/26/24 by TAHMINA Anne acetaminophen (Tylenol Extra Strength) 500 mg PO Q6H PRN acetone (urine) test (Ketone Urine Test strips) As directed glucose over 300, illness, nausea, vomiting t.i.d. albuterol sulfate 90 mcg/actuation 1 inh inhalation QID PRN albuterol sulfate 2.5 mg (3 mL) inhalation QID PRN 25 days artifi.tears(hypromellose)(PF) 0.3% 1 drp ophthalmic-Right Q4-6H PRN ascorbate calcium (vitamin C) 500 mg PO DAILY blood pressure kit-extra large As directed blood sugar diagnostic (FreeStyle Lite Strips) TEST 4 TIMES DAILY blood-glucose meter (FreeStyle Lite Meter kit) TEST 4 TIMES DAILY buspirone 15 mg PO TID cane As directed cetirizine (Zyrtec) 10 mg PO DAILY 90 days cholecalciferol (vitamin D3) 50 mcg PO DAILY 90 days citalopram 10 mg PO DAILY cyanocobalamin (vitamin B-12) 1,000 mcg sublingual DAILY cyclobenzaprine 10 mg PO TID PRN diclofenac sodium 75 mg PO BID docusate sodium 100 mg PO DAILY empagliflozin (Jardiance) 10 mg PO DAILY 30 days ergocalciferol (vitamin D2) 1,250 mcg PO QWEEK 90 days escitalopram oxalate 5 mg PO DAILY fluticasone propionate 50 mcg/actuation (Flonase Allergy Relief) 1 spray intranasal DAILY 30 days folic acid 1 mg PO DAILY furosemide 20 mg PO BID 90 days gabapentin 100 mg PO TID 30 days glucagon 3 mg/actuation (Baqsimi) 3 mg intranasal .prn PRN 30 days MDD 6 mg [glucose tablets 15 grams PO .prn PRN 30 days MDD 12 tablets] hydrocortisone 2.5% (Proctozone-HC) 1 appl NV BID PRN hydrocortisone-pramoxine 1-1 % (Proctofoam HC) 1 appl NV DAILY hydroxyzine HCl 1 - 2 tabs PO QID ibuprofen 400 mg PO TID PRN insulin degludec (Tresiba FlexTouch U-200 insulin) 70 units (0.35 mL) subcut DAILY 30 days insulin lispro (Humalog KwikPen U-200 Insulin) up to 425 units per day via pump subcutaneously use as directed; 30 days insulin syringe-needle U-100 (Advocate Syringes) Use 1 needle once a month [IRON PO] lidocaine 5% (Lidoderm) 1 patch topical DAILY PRN MDD remove after 12 hours lisinopril 20 mg PO DAILY montelukast 10 mg PO DAILY 90 days nebulizers (AeroEclipse II Nebulizer) As directed oxycodone-acetaminophen 5-325 mg 1 tab PO Q8H PRN 30 days pantoprazole 40 mg PO DAILY 30 days pen needle, diabetic As directed qid prn pump failure pen needle, diabetic (Comfort EZ Pen [place]) As directed once daily, prn pump failure can increase to qid pen needle, diabetic (Comfort EZ Pen [place]) As directed daily: In the event a pump failure use up to q.i.d. rosuvastatin 40 mg PO DAILY 90 days Shower Chair As directed simethicone (Gas Relief Extra Strength) 125 mg PO TID-QID PRN [skin tac apply to skin at pump site and sensor site after cleansing with alcohol.Insert pump cannula/sensor after skin tac has allowed to dry. Use on pump every three days, every 10 at sensor site.] syringe with needle (Scratch Music Grouper Slip Syringe-Needle) For vitamin B12 injection syringe with needle, safety (BD Safety-Jone Detachable Needle) Use 1 syringe once a month tirzepatide (Mounjaro) 15 mg (0.5 mL) subcut QWEEK 28 days vitamin A 1 cap PO DAILY HPI Comments Details: This?is a?49?yo F who is s/p RYGB 07/20/2015. Weight stable since last OV 1mo ago. Pt is interested in skin removal surgery. Reports her current meal plan includes protein in morning and noon- usually a bar or shake, and then will have a dinner of solid food- meat, vegetables or salad. She reports issues of excess skin of abdomen which has become bothersome. She has developed a rash in the skin folds which is itchy. She has tried an antifungal cream prescribed by her PCP to try to prevent fungal rashes and itchy skin for several months. Moisture collects in the skin folds and smells unpleasant so she has to clean more frequently to avoid this. She has to wear a supportive waistband/compression of abdominal skin at all times to help hold excess skin in place. She has noticed that activities of daily living are more difficult such as walking, bending, and squatting down and her range of motion can be limited. Also reports excess skin of the upper arms. She reports chafing of upper arms when skin rubs against the torso. She cannot wear sleeveless shirts, has to wear longer sleeves to prevent rashes. She has to use talc powder here. It is difficult to have full range of motion of her arms due to the heaviness of the excess skin when she tries to raise them above her head. FOR[facility]LY [facility], [facility] Medical History Bunion of great toe Peripheral vascular disease of lower extremity Cellulitis Uncontrolled type 2 diabetes mellitus with hyperglycemia Physical exam Cellulitis of toe of right foot Hospital discharge follow-up Goiter Onychomycosis Vitamin D deficiency T2DM (type 2 diabetes mellitus) Left ankle pain B12 deficiency Left leg pain Acid reflux History of colonic polyps Chronic fatigue Carpal tunnel syndrome Daytime hypersomnia Autoimmune thyroiditis Fibromyalgia Morbid obesity Spondylosis, thoracic, 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 spine without myelopathy History of ulcer disease Sessile colonic polyp Obesity Tracee's disease MCC (current) use of insulin Diabetic nephropathy associated with type 2 diabetes mellitus Diabetic retinopathy associated with type 2 diabetes mellitus Diabetic polyneuropathy associated with type 2 diabetes mellitus Iron (Fe) deficiency anemia History of Graves' disease Lumbar degenerative disc disease Back pain Anxiety and depression GERD (gastroesophageal reflux disease) Asthma Hyperlipidemia Hypertension Diabetes mellitus Polyarthralgia Surgical History History of carpal tunnel surgery of right wrist H/O endoscopy History of cataract extraction History of lumpectomy of left breast History of carpal tunnel surgery of left wrist Hx of section Hx laparoscopic cholecystectomy Hx of esophagogastroduodenoscopy Hx of colonoscopy H/O gastric bypass Family History Father Diabetes Hypertension Mother Diabetes Hypertension Maternal Grandmother Colon cancer Paternal Aunt Cancer of ear Social History Household Members: Family Housing: House Are you a primary director of health care marketing to a significant other at home: No Do you presently have visiting nurse or other home services: No Alcohol intake: never Patient Tobacco Use Status: Former Tobacco user Tobacco use type: Cigarette Cigarette Packs Per Day: 1 Years Smoked: 20 e-Cigarette/Vaping Use: Never Used Second Hand Smoke Exposure: No service: No Current occupational status: disabled Current occupation: right hand dominant Cognitive needs: No Hearing needs: No Vision needs: Yes Female Reproductive History Menstrual Age of Menarche: 14 Physical Exam Const General: cooperative, comfortable and no acute distress Orientation/consciousness: patient oriented x3 GI Other: soft, nontender, nondistended, incisions well healed, no hernia, no masses Grade II pannus, 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 Gave PostedInI deya info and encouraged pt to follow a structured plan in anticipation for future surgery. She is experiencing issues of excess skin of abdomen resulting in frequent painful, itchy, malodorous rashes which are unrelieved by topical prescription antifungals. In addition she is experiencing limitations/discomfort in activities of daily living, including walking, bending. She requires the use of special clothing at all times to try to prevent discomfort but her issues have not been completely relieved by conservative measures. She would benefit from definitive treatment of panniculectomy. In addition, she is experiencing issues of excess skin of upper arms resulting in frequent chafing unrelieved by topical prescription treatments, requiring the use of special clothing at all times and resulting in limitation of range of motion and discomfort due to the heaviness of the excess skin. She would benefit from definitive treatment of brachioplasty. Photos taken today, will submit for insurance approval. Had some labs done recently, will order remaining vitamin levels. Pt also interested in cosmetic procedure for extra skin of neck, will refer to plastics. Will discuss chronic abscess with Dr Topete, whether any imaging needed- pt was supposed to follow up with general surgery (previously saw Dr Aviles) for excision of tract. Orders: Orders Vitamin A Today Z98.84 - Bariatric surgery status Vitamin D 25-OH Total Today Z98.84 - Bariatric surgery status Vitamin B12 and Folate Today Z98.84 - Bariatric surgery status Zinc Today Z98.84 - Bariatric surgery status Vitamin B1 Today Z98.84 - Bariatric surgery status TSH reflex Free T4 Today Z98.84 - Bariatric surgery status
[2024-10-26 09:17] VITALS: BP 137/69; PULSE 85; TEMP 36.4; O2SAT 100; BMI 24.6
--- OUTSIDE RECORDS SUMMARY | 2024-10-26 09:34 | XMS_ITS | Clinical Summary ---
Author Organization [facility] Facility Address [address] [place] [address] Care Team Providers Care Nuclear Waste Management Engineer Name Role Phone Analilia Chaidez MD Primary Care Provider [phone] Allergies Active Allergy Reactions Criticality Noted Date [...] this topic Insurance Medicaid Medicaid Care Teams Nuclear Waste Management Engineer Relationship Specialty Start Date End Date Analilia Chaidez MD [address] [place], [place] PCP - General 03/06/20
--- OUTSIDE RECORDS SUMMARY | 2024-10-26 09:34 | XMS_ITS | Clinical Summary ---
Author Organization 175 [facility] Address [address] [place] [address] Phone Care Team Providers Care Camp Tender Name Role Phone Analilia Schumacher MD Primary Care Provider [phone] Allergies No known active allergies Medications acetaminophen [...] Uncontrolled type 2 diabetes mellitus with hyperglycemia [place] [place] [facility] [place]) 10/07/2024 Onychomycosis 10/07/2024 Vitamin D deficiency 10/07/2024 Type 2 diabetes mellitus ([facility] [place], [facility] V 28) 10/07/2024 Left ankle pain 10/07/2024 B12 deficiency 10/07/2024 Left leg pain 10/07/2024 Acid reflux 10/07/2024 History of colonic polyps 10/07/2024 Chronic fatigue 10/07/2024 Carpal tunnel syndrome 10/07/2024 Daytime hypersomnia 10/07/2024 Autoimmune thyroiditis 10/07/2024 Fibromyalgia 10/07/2024 Morbid obesity ([facility] [place], [facility] [place]) 2024 Spondylosis 10/07/2024 History of ulcer disease 10/07/2024 Sessile colonic polyp 10/07/2024 USP (current) use of i nsulin ([facility] [place], [facility] V28) 10/07/2024 Encounters Date Type Department Care Team Description 10/07/2024 9:30 AM EDT Consult Orthopedic Surgery - [address] [address] Kali Artis, DPM Dermatophytosis of nail (Primary Dx); Bunion of unspecified foot; Pain in toe of left foot; Pain in toe of right foot; Diabetic mononeuropathy simplex ([facility] [place], [facility] V28); Type II diabetes mellitus with peripheral circulatory disorder ([facility] [place], [facility] V28); Corns and callosities; Metatarsalgia of both [...] AM EST Office Visit Orthopedic Surgery - [place] [address] [address] Kali Artis, DPM [address] [address] Health Maintenance Due Date Last Done Comments [...] R esult from Last 3 Months Insurance [place] - [place] [facility] PLAN Care Teams Camp Tender Relationship Specialty Start Date End Date Analilia Schumacher MD [address] [facility] , [address] [facility] Physician Associ D/B/A: [facility] RICHARDSON Fuentes PCP - General Internal Medicine 12/22/17
== END 2024-10-26 09:42 | disposition home or self-care (01) ==
LOC: HO.HBS 08:49
PROVIDERS: PCP Internal Medicine; Visit Provider Physician Assistant Surgical
DX: L98.7 Excessive and redundant skin and subcutaneous tissue (principal); Z98.84 Bariatric surgery status
CPT/HCPCS: 99214

== ENCOUNTER → 2024-10-26 08:48 | Outpatient (BNVA) | payer OTHER, SELFPAY | PROVIDERS: PCP Internal Medicine; Visit Provider Physician Assistant Surgical | DX: Z98.84 Bariatric surgery status (principal); L98.7 Excessive and redundant skin and subcutaneous tissue | CPT/HCPCS: 99212 ==

== ENCOUNTER 2024-11-01 06:37 | Outpatient (REF) | payer OTHER, SELFPAY ==
--- NOTE | ~2024-11-01 | XR_ITS ---
CLINICAL HISTORY: M25.511 - Pain in right shoulder 4 view right shoulder Comparison: None provided Findings: No fractures or dislocations. No significant degenerative change of the glenohumeral joint. Predominantly superior of the acromion. No widening of the AC joint. No erosions. No radiopaque foreign body. IMPRESSION: 1. No acute findings This document has been electronically signed by: Igor Ambriz MD on 11/01/2024 23:29:01
--- NOTE | ~2024-11-01 | XR_ITS ---
CLINICAL HISTORY: M25.521 - Pain in right elbow 3 view right elbow Comparison: None provided Findings: No acute fractures or dislocations. No significant loss of joint space, osteophytes, or erosions. No joint effusion. No radiopaque foreign body. IMPRESSION: 1. No acute findings. This document has been electronically signed by: Igor Ambriz MD on 11/01/2024 23:28:08
--- OUTSIDE RECORDS SUMMARY | 2024-11-01 06:41 | XMS_ITS | Clinical Summary ---
Author Organization [address] [facility] Address [address] [place] [address] Phone Care Team Providers Care Theatre Instructor Name Role Phone Analilia Schumacher MD Primary Care Provider [phone] Allergies No known active allergies Medications acetaminophen [...] Uncontrolled type 2 diabetes mellitus with hyperglycemia ([facility] V24, [facility] V28) 10/07/2024 Onychomycosis 10/07/2024 Vitamin D deficiency 10/07/2024 Type 2 diabetes mellitus ([facility] V24, [facility] V 28) 10/07/2024 Left ankle pain 10/07/2024 B12 deficiency 10/07/2024 Left leg pain 10/07/2024 Acid reflux 10/07/2024 History of colonic polyps 10/07/2024 Chronic fatigue 10/07/2024 Carpal tunnel syndrome 10/07/2024 Daytime hypersomnia 10/07/2024 Autoimmune thyroiditis 10/07/2024 Fibromyalgia 10/07/2024 Morbid obesity ([facility] V24, [facility] V28) 2024 Spondylosis 10/07/2024 History of ulcer disease 10/07/2024 Sessile colonic polyp 10/07/2024 jail (current) use of i nsulin ([facility] V24, [facility] V28) 10/07/2024 Encounters Date Type Department Care Team Description 10/07/2024 9:30 AM EDT Consult Orthopedic Surgery - [address] [address] Kali Artis, DPM Dermatophytosis of nail (Primary Dx); Bunion of unspecified foot; Pain in toe of left foot; Pain in toe of right foot; Diabetic mononeuropathy simplex ([facility] V24, [facility] V28); Type II diabetes mellitus with peripheral circulatory disorder ([facility] V24, [facility] V28); Corns and callosities; Metatarsalgia of both [...] AM EST Office Visit Orthopedic Surgery - [place] [address] [address] Kali Artis, DPM [address] [address] Health Maintenance Due Date Last [...] Last 3 Months Insurance [place] - [place] [facility] PL[facility] Care Teams Theatre Instructor Relationship Specialty Start Date End Date Analilia Schumacher MD [address] [facility] , [address] [facility] Physician Associ D/B/A: [facility] RICHARDSON Fuentes PCP - General Internal Medicine 12/22/17
--- OUTSIDE RECORDS SUMMARY | 2024-11-01 06:41 | XMS_ITS | Clinical Summary ---
Author Organization [facility] Facility Address [address] [place] [address] Care Team Providers Care Qualifications Examiner Name Role Phone Analilia Chaidez MD Primary Care Provider [phone] Allergies Active Allergy Reactions Criticality Noted Date [...] this topic Insurance Medicaid Medicaid Care Teams Qualifications Examiner Relationship Specialty Start Date End Date Analilia Chaidez MD [address] [place], [place] PCP - General 03/06/20
[2024-11-01 07:11] LABS: MANUAL DIFF FLAG NO
[2024-11-01 07:42] LABS: Hematocrit 39.1 % (37.0-47.0); Hemoglobin 13.0 g/dl (12.0-16.0); Imm Gran Abs Auto 0.02 X10*3/uL (0.00-0.03); Imm Gran Pct Auto 0.3 % (0.0-0.4); Lymphocytes Absolute Auto 1.8 X10*3/uL (1.2-4.9); Mean Corpuscular HGB Conc 33.2 g/dl (31.0-35.0); Mean Corpuscular Hemoglobin 27.6 pg (27.0-33.0); Mean Corpuscular Volume 83.0 fL (80.0-98.0); NRBC Abs Auto 0.000 X10*3/uL (0.0-0.012); NRBC Pct Auto 0.0 /100WBC (0.0-0.2); Platelet Count 276 X10*3/uL (160-400); Red Blood Count 4.71 X10*6/uL (4.20-5.50); White Blood Count 6.1 X10*3/uL (4.8-10.8)
[2024-11-01 07:43] LABS: Hemoglobin A1C 271.2396 umol/L; Total Hemoglobin (HGBA1C) 3514.4987 umol/L
[2024-11-01 08:10] LABS: Alanine Aminotransferase 55 U/L (0-31); Albumin Level 4.3 g/dL (3.5-5.0); Alkaline Phosphatase 97 U/L (39-117); Anion Gap 12 (12-20); Aspartate Amino Transferase 29 U/L (5-31); Blood Urea Nitrogen 12 mg/dL (9-16); Calcium 9.3 mg/dL (8.4-10.2); Carbon Dioxide 25 mmol/L (22-29); Chloride 104 mmol/L (96-108); Cholesterol 168 mg/dL (<200); Estimated Glomerular Filt Rate > 60; HDL Cholesterol 64 mg/dL (>40); Iron 51 mcg/dL (30-160); Percent Iron Saturation 17 % (15-50); Potassium 4.0 mmol/L (3.3-5.1); Sodium 137 mmol/L (135-145); Total Iron Binding Capacity 308 mcg/dL (228-428); Total Protein 6.9 g/dL (6.5-8.0); Triglycerides 81 mg/dL (<150); Unsaturated Iron Binding 257 ug/dL
[2024-11-01 08:34] LABS: Folate 12.1 ng/mL (> or = 4.0); Vitamin B12 205 pg/mL (200-900)
== END 2024-11-01 06:38 | disposition home or self-care (01) ==
LOC: HO.LAB 06:37
PROVIDERS: Absent Provider Physician Assistant Surgical; PCP Internal Medicine; Visit Provider Internal Medicine
DX: E11.9 Type 2 diabetes mellitus without complications (principal); M25.511 Pain in right shoulder; M25.521 Pain in right elbow; D64.9 Anemia, unspecified; E78.5 Hyperlipidemia, unspecified; I73.9 Peripheral vascular disease, unspecified; Z98.84 Bariatric surgery status
CPT/HCPCS: 36415; 73030; 73070; 80053; 80061; 82306; 82607; 82746; 83036; 83540; 84425; 84443; 84590; 84630; 85025

== ENCOUNTER → 2024-11-01 07:16 | Outpatient (BNV) | payer OTHER, SELFPAY | PROVIDERS: Absent Provider Physician Assistant Surgical; PCP Internal Medicine; Visit Provider Radiology Diagnostic Radiology | DX: M25.511 Pain in right shoulder (principal); M25.521 Pain in right elbow | CPT/HCPCS: 73030; 73070 ==

== ENCOUNTER 2024-11-02 06:40 | Outpatient (REF) | payer OTHER, SELFPAY ==
--- OUTSIDE RECORDS SUMMARY | 2024-11-02 06:43 | XMS_ITS | Clinical Summary ---
Author Organization [facility] Facility Address [address] [place] [address] Care Team Providers Care Supervisor Ride Assembly Name Role Phone Analilia Chaidez MD Primary Care Provider [phone] Allergies Active Allergy Reactions Criticality Noted Date [...] this topic Insurance Medicaid Medicaid Care Teams Supervisor Ride Assembly Relationship Specialty Start Date End Date Analilia Chaidez MD [address] [place], [place] PCP - General 03/06/20
--- OUTSIDE RECORDS SUMMARY | 2024-11-02 06:43 | XMS_ITS | Clinical Summary ---
Author Organization 175 [facility] Address 175 [place] [address] Phone Care Team Providers Care Loans Officer Name Role Phone Analilia Schumacher MD Primary Care Provider [phone] Allergies No known active allergies Medications acetaminophen [...] Uncontrolled type 2 diabetes mellitus with hyperglycemia ([facility] V24, [facility] V28) 10/07/2024 Onychomycosis 10/07/2024 Vitamin D deficiency 10/07/2024 Type 2 diabetes mellitus ([facility] V24, [facility] V 28) 10/07/2024 Left ankle pain 10/07/2024 B12 deficiency 10/07/2024 Left leg pain 10/07/2024 Acid reflux 10/07/2024 History of colonic polyps 10/07/2024 Chronic fatigue 10/07/2024 Carpal tunnel syndrome 10/07/2024 Daytime hypersomnia 10/07/2024 Autoimmune thyroiditis 10/07/2024 Fibromyalgia 10/07/2024 Morbid obesity ([facility] V24, [facility] V28) 2024 Spondylosis 10/07/2024 History of ulcer disease 10/07/2024 Sessile colonic polyp 10/07/2024 residential (current) use of i nsulin ([facility] V24, [facility] V28) 10/07/2024 Encounters Date Type Department Care Team Description 10/07/2024 9:30 AM EDT Consult Orthopedic Surgery - [address] [address] Kali Artis, DPM Dermatophytosis of nail (Primary Dx); Bunion of unspecified foot; Pain in toe of left foot; Pain in toe of right foot; Diabetic mononeuropathy simplex ([facility] V24, [facility] V28); Type II diabetes mellitus with peripheral circulatory disorder ([facility] V24, [facility] V28); Corns and callosities; Metatarsalgia of both [...] AM EST Office Visit Orthopedic Surgery - [place] [address] [address] Kali Artis, DPM [address] [address] Health Maintenance Due Date Last [...] Last 3 Months Insurance [place] - [place] [facility] [place] Care Teams Loans Officer Relationship Specialty Start Date End Date Analilia Schumacher MD [address] [facility] , [address] [facility] Physician Associ D/B/A: [facility] RICHARDSON Fuentes PCP - General Internal Medicine 12/22/17
[2024-11-02 08:22] LABS: Appearance Urine Cloudy; Glucose Urine UA 500 mg/dL (Negative); PH 5.5 (5.0-9.0); Specific Gravity - Urine >= 1.030 (1.005-1.025); UMIC TRIGGER UA YES
[2024-11-02 09:19] LABS: Microalbum/Creatinine Ratio Ur 24.0 ug/mg cr (<30)
== END 2024-11-02 06:41 | disposition home or self-care (01) ==
LOC: HO.LAB 06:40
PROVIDERS: Internal Medicine Hypertension Specialist; PCP Internal Medicine; Visit Provider Internal Medicine
DX: R80.9 Proteinuria, unspecified (principal)
CPT/HCPCS: 81001; 81003; 82043; 82570

== ENCOUNTER 2024-11-03 08:19 | Outpatient (AMB) | payer OTHER, SELFPAY ==
--- NOTE | 2024-11-03 08:24 | A.OFFVIS_ITS ---
Vital Signs 11/03/24 08:27 Height 5 ft 9 in Weight 169 lb 5.04 oz BMI 25.0 BP 122/60 Blood Pressure Location Rt brachial Position Sitting Pulse 82 Pulse Source Pulse Oximeter Pulse Oximetry (%) 98 Oxygen Delivery Method Room Air Intake Visit Reasons: DM Intake Note: Patient present today to follow up on Type 1 Diabetes Mellitus. Patient states she is experiencing frequent hypoglycemia. Patient receives Tandem insulin pump and Dexcom G7 supplies through: [employer] Last Diabetic Eye exam: 12/2023 Last Podiatry Visit: Has not seen a Fermentation Scientist Random Glucose: 82 mg/dl, after finger stick, patient meter was ringing that her blood sugar was going down from 77 mg/dl to 67 mg/dl, 205 mg/dl at 9:08 am. HgA1C: 9.2% 11/01/2024 Armament Aircraft Mechanic Required: Yes Armament Aircraft Mechanic Language: Supervisor Volunteer Services Services: Armament Aircraft Mechanic Present Armament Aircraft Mechanic [facility] Information Interpreted: non-clinical & clinical Accompanied by: Self / Same As Patient Allergies adhesive tape (ADHESIVE TAPE) Allergy (Intermediate, Verified 11/03/24 08:28) RASH pioglitazone (From ACTOS) Allergy (Intermediate, Verified 11/03/24 08:28) facial edema,rash latex Allergy (Mild, Verified 11/03/24 08:28) Rash HPI Comments Details: 49 YO F with PMHx T2DM who is seen in F/U for the same. She has a history of prior bariatric surgery in June of 2015. She is on u200 insulin in an insulin pump along with Mounjaro. She previously was on U500 insulin and was struggling to achieve control with this. Her insulin was changed to U 200 which has a similar action of U 100 and more recently a once daily basal shot of Tresiba was added due to insulin resistance. Last A1C on u500 was 10.4%. Received steroid injections 2 wks ago Current medication: Tresiba 70 units Jardiance 10 mg QD Mounjaro 15 mg weekly She is on Humalog U 200 insulin in her pump. States pump is malfunctioning She has a tandem T slim X Dexcom average glucose: 255 14 day continuous glucose monitor report reviewed TIme in ranges: 48% very high (above 250) 38 % high ?(181-250) 14 % in range ?(70-180] 0 % low (69-55) 0 % ?very low (below 54) Trend shows downward blood sugars overnight but increases post-breakfast and post-dinner Interpretation: She is entering in 52 carbs per day Basal insulin 52% 171.5 units Bolus insulin 48% 82.7 units Bolus setting Insulin Carbohydrate Ratio (s) 12 AM? to 5 AM?1:3 5 AM? to 9am? 1:5 9A to 9P= 1:2 9AM to 9PM 1:2 9PM to 12AM 1.5 Correction Factor / Sensitivity Factor 12 AM? to 5 AM? 1:8 5:00am to 9AM 1:3 9am to 9pm 1:4 Glucose target range 00:00 120 05:00 120 09:00 120 21:00 120 Active Insulin Time:?2.5 Basal Rates 12A= 6 5A= 6 9A= 4.2 9 PM= 6 Has retinopathy last eye exam 7 mos ago Has neuropathy on gabapentin. Symptoms: Numbness and tingling no pain or cramping Has nephropathy on DORITA inhibitor 03/08/2024 eGFR>60 recently seen by Nephrology at [facility] for mild chronic hyponatremia and diabetic kidney disease 03/08/24 35.0 Has HLD on statin 03/08/2024 69 Has peripheral vascular disease status post stent 2023 She has an appointment with Podiatry this week. Has bilateral bunions. She does have older diabetic shoes. Sees [facility] on an ongoing basis [facility] Medical History Bunion of great toe Peripheral vascular disease of lower extremity Cellulitis Uncontrolled type 2 diabetes mellitus with hyperglycemia Physical exam Cellulitis of toe of right foot Hospital discharge follow-up Goiter Onychomycosis Vitamin D deficiency T2DM (type 2 diabetes mellitus) Left ankle pain B12 deficiency Left leg pain Acid reflux History of colonic polyps Chronic fatigue Carpal tunnel syndrome Daytime hypersomnia Autoimmune thyroiditis Fibromyalgia Morbid obesity Spondylosis, thoracic, 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 spine without myelopathy History of ulcer disease Sessile colonic polyp Obesity Tracee's disease half-way (current) use of insulin Diabetic nephropathy associated with type 2 diabetes mellitus Diabetic retinopathy associated with type 2 diabetes mellitus Diabetic polyneuropathy associated with type 2 diabetes mellitus Iron (Fe) deficiency anemia History of Graves' disease Lumbar degenerative disc disease Back pain Anxiety and depression GERD (gastroesophageal reflux disease) Asthma Hyperlipidemia Hypertension Diabetes mellitus Polyarthralgia Surgical History History of carpal tunnel surgery of right wrist H/O endoscopy History of cataract extraction History of lumpectomy of left breast History of carpal tunnel surgery of left wrist Hx of section Hx laparoscopic cholecystectomy Hx of esophagogastroduodenoscopy Hx of colonoscopy H/O gastric bypass Family History Father Diabetes Hypertension Mother Diabetes Hypertension Maternal Grandmother Colon cancer Paternal Aunt Cancer of ear Social History Household Members: Family Housing: House Are you a primary career technical counselor to a significant other at home: No Do you presently have visiting nurse or other home services: No Alcohol intake: never Patient Tobacco Use Status: Former Tobacco user Tobacco use type: Cigarette Cigarette Packs Per Day: 1 Years Smoked: 20 e-Cigarette/Vaping Use: Never Used Second Hand Smoke Exposure: No service: No Current occupational status: disabled Current occupation: right hand dominant Cognitive needs: No Hearing needs: No Vision needs: Yes Female Reproductive History Menstrual Age of Menarche: 14 Physical Exam Vital Signs: Last Vital Signs Pulse 82 11/03/24 08:27 BP 122/60 11/03/24 08:27 Pulse Ox 98 11/03/24 08:27 Oxygen Delivery Method Room Air 11/03/24 08:27 BMI result Body Mass Index 25.0 Const Other: Absence of Cushingoid features. Absence of acromegalic features. Neck exam reveals nl size thyroid about 15 gms. No thyroid nodules palpable. Heart S1 S2, Reg R/R. No M/R G. Skin exam reveals absence of vitiligo or acanthosis nigricans. No edema Visual exam of foot performed. Bilateral bunion deformity, No ulcerations or open lesions. No inter digit maceration or fissuring. No onychomycosis, no callouses. Sensation intact to monofilament exam. Vibratory sensation is normal with 128 Hz tuning fork. 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 Will have patient follow up with Dr. Pickett in 6 wks Coding Level of Care Code Est Pt Level 4 (55186) Complex EM visit Add On G2211 Diagnoses Type 2 diabetes mellitus with hyperglycemia, with long-term current use of insulin E11.65; Z79.4 Diabetes mellitus detention insulin use: with detention use Diabetes mellitus complication status: with hyperglycemia
[2024-11-03 08:27] VITALS: BP 122/60; PULSE 82; O2SAT 98; BMI 25.0
[2024-11-03 08:38] LABS: Glucose, Whole Blood 82 mg/dL (60-115)
[2024-11-03 09:13] LABS: Glucose, Whole Blood 205 mg/dL (60-115)
--- OUTSIDE RECORDS SUMMARY | 2024-11-03 09:30 | XMS_ITS | Clinical Summary ---
Author Organization 175 [facility] Address 175 [place] [address] Phone Care Team Providers Care Sales Support Coordinator Name Role Phone Analilia Schumacher MD Primary Care Provider [phone] Allergies No known active allergies Medications acetaminophen [...] Uncontrolled type 2 diabetes mellitus with hyperglycemia ([facility] V24, [facility] V28) 10/07/2024 Onychomycosis 10/07/2024 Vitamin D deficiency 10/07/2024 Type 2 diabetes mellitus ([facility] V24, [facility] V 28) 10/07/2024 Left ankle pain 10/07/2024 B12 deficiency 10/07/2024 Left leg pain 10/07/2024 Acid reflux 10/07/2024 History of colonic polyps 10/07/2024 Chronic fatigue 10/07/2024 Carpal tunnel syndrome 10/07/2024 Daytime hypersomnia 10/07/2024 Autoimmune thyroiditis 10/07/2024 Fibromyalgia 10/07/2024 Morbid obesity ([facility] V24, [facility] V28) 2024 Spondylosis 10/07/2024 History of ulcer disease 10/07/2024 Sessile colonic polyp 10/07/2024 long term care administrator (current) use of i nsulin ([facility] V24, [facility] V28) 10/07/2024 Encounters Date Type Department Care Team Description 10/07/2024 9:30 AM EDT Consult Orthopedic Surgery - [address] [address] Kali Artis, DPM Dermatophytosis of nail (Primary Dx); Bunion of unspecified foot; Pain in toe of left foot; Pain in toe of right foot; Diabetic mononeuropathy simplex ([facility] V24, [facility] V28); Type II diabetes mellitus with peripheral circulatory disorder ([facility] V24, [facility] V28); Corns and callosities; Metatarsalgia of both [...] AM EST Office Visit Orthopedic Surgery - [place] [address] [address] Kali Artis, DPM [address] [address] Health Maintenance Due Date Last [...] Last 3 Months Insurance MEDICAID - [place] [facility] PLAN Care Teams Sales Support Coordinator Relationship Specialty Start Date End Date Analilia Schumacher MD [address] [facility] , [address] [facility] D/B/A: [facility] RICHARDSON Fuentes PCP - General Internal Medicine 12/22/17
--- OUTSIDE RECORDS SUMMARY | 2024-11-03 09:30 | XMS_ITS | Clinical Summary ---
Author Organization [facility] Facility Address [address] [place] [address] Care Team Providers Care Bag Mender Name Role Phone Analilia Chaidez MD Primary Care Provider [phone] Allergies Active Allergy Reactions Criticality Noted Date Comments Pioglitazone Other (see comments) 04/21/2020 Medications albuterol (2.5 MG/3ML) 0.083% nebulizer solution Active albuterol HFA (ProAir HFA) 108 (90 Base) MCG/ACT inhaler Acti ve ascorbic acid (VITAMIN C) 500 MG CR capsule Active aspirin (Ulcy Aspirin EC Low Dose) 81 MG EC [...] this topic Insurance Medicaid Medicaid Care Teams Bag Mender Relationship Specialty Start Date End Date Analilia Chaidez MD [address] [place], [place] PCP - General 03/06/20
== END 2024-11-03 09:17 | disposition home or self-care (01) ==
LOC: HO.ENCR 08:20
PROVIDERS: PCP Internal Medicine; Visit Provider Internal Medicine Endocrinology, Diabetes & Metabolism
DX: E11.65 Type 2 diabetes mellitus with hyperglycemia (principal); Z79.4 Long term (current) use of insulin
CPT/HCPCS: 99214

== ENCOUNTER → 2024-11-03 08:19 | Outpatient (BNVA) | payer OTHER, SELFPAY | PROVIDERS: PCP Internal Medicine; Visit Provider Internal Medicine Endocrinology, Diabetes & Metabolism | DX: Z46.81 Encounter for fitting and adjustment of insulin pump (principal); E10.65 Type 1 diabetes mellitus with hyperglycemia; Z79.4 Long term (current) use of insulin | CPT/HCPCS: 82947; 99212 ==

== ENCOUNTER 2024-11-11 11:03 | Outpatient (REF) | payer OTHER, SELFPAY ==
--- OUTSIDE RECORDS SUMMARY | 2024-11-11 13:22 | XMS_ITS | Clinical Summary ---
Author Organization [facility] Facility Address [address] [place] [address] Care Team Providers Care Brazer Induction Name Role Phone Analilia Chaidez MD Primary Care Provider [phone] Allergies Active Allergy Reactions Criticality Noted Date [...] this topic Insurance Medicaid Medicaid Care Teams Brazer Induction Relationship Specialty Start Date End Date Analilia Chaidez MD [address] [place], [place] PCP - General 03/06/20
--- OUTSIDE RECORDS SUMMARY | 2024-11-11 13:22 | XMS_ITS | Clinical Summary ---
Author Organization 175 [facility] Address 175 [place] [address] Phone Care Team Providers Care College Dean Name Role Phone Analilia Schumacher MD Primary Care Provider [phone] Allergies No known active allergies Medications acetaminophen [...] Uncontrolled type 2 diabetes mellitus with hyperglycemia [place] [place] [facility] [place]28) 10/07/2024 Onychomycosis 10/07/2024 Vitamin D deficiency 10/07/2024 Type 2 diabetes mellitus ([facility] [place], [facility] V 28) 10/07/2024 Left ankle pain 10/07/2024 B12 deficiency 10/07/2024 Left leg pain 10/07/2024 Acid reflux 10/07/2024 History of colonic polyps 10/07/2024 Chronic fatigue 10/07/2024 Carpal tunnel syndrome 10/07/2024 Daytime hypersomnia 10/07/2024 Autoimmune thyroiditis 10/07/2024 Fibromyalgia 10/07/2024 Morbid obesity ([facility] [place], [facility] [place]28) 2024 Spondylosis 10/07/2024 History of ulcer disease 10/07/2024 Sessile colonic polyp 10/07/2024 predatory animal exterminator (current) use of i nsulin ([facility] [place], [facility] [place] 10/07/2024 Encounters Date Type Department Care Team Description 10/07/2024 9:30 AM EDT Consult Orthopedic Surgery - [address] [address] Kali Artis, DPM Dermatophytosis of nail (Primary Dx); Bunion of unspecified foot; Pain in toe of left foot; Pain in toe of right foot; Diabetic mononeuropathy simplex ([facility] [place], [facility] [place]28); Type II diabetes mellitus with peripheral circulatory disorder ([facility] [place], [facility] V28); Corns and callosities; [...] AM EST Office Visit Orthopedic Surgery - [place] [address] [address] Kali Artis, DPM [address] [address] Health Maintenance Due Date Last [...] Months Insurance [place] - [place] [facility] PL[facility] Care Teams College Dean Relationship Specialty Start Date End Date Analilia Schumacher MD 2 [facility] , [address] [facility] Physician Associ D/B/A: [facility] RICHARDSON Fuentes PCP - General Internal Medicine 12/22/17
== END 2024-11-11 11:04 | disposition home or self-care (01) ==
LOC: HO.LAB 11:03
PROVIDERS: Absent Provider Internal Medicine Medical Oncology; Visit Provider Internal Medicine Hypertension Specialist
DX: Z13.89 Encounter for screening for other disorder (principal)

== ENCOUNTER 2024-11-15 10:02 | Outpatient (AMB) | payer OTHER, SELFPAY ==
[2024-11-15 10:05] VITALS: BP 150/72; PULSE 80; O2SAT 100; BMI 24.4
--- NOTE | 2024-11-15 10:05 | HO.NEPHOV ---
Vital Signs 11/15/24 10:05 11/15/24 10:15 Height 5 ft 9 in Weight 165 lb BMI 24.4 BP 150/72 H 130/70 Blood Pressure Location Rt brachial Rt brachial Position Sitting Sitting Pulse 80 Pulse Source Pulse Oximeter Pulse Oximetry (%) 100 Oxygen Delivery Method Room Air Intake Visit Reasons: FU-Conf Molded Grid And Parts Inspector Required: Yes Molded Grid And Parts Inspector Name: Jonathan [id number] Accompanied by: Self / Same As Patient Allergies adhesive tape (ADHESIVE TAPE) Allergy (Intermediate, Verified 11/15/24 10:07) RASH pioglitazone (From ACTOS) Allergy (Intermediate, Verified 11/15/24 10:07) facial edema,rash latex Allergy (Mild, Verified 11/15/24 10:07) Rash HPI Comments Details: 49-year-old woman with a history of diabetes mellitus and hypertension referred for hyponatremia. Upon reviewing the labs it appears that she has had chronic hyponatremia for at least 5 or 6 years. Serum sodium has been in the low 130s. The lowest recorded reading was 129 back in 2019. She is on low-dose of citalopram. She admits to drinking more than 10 bottles of water a day. She has undergone gastric bypass surgery and since then she has been drinking plenty of water. She denies any alcohol intake. At present she has no history of headache nausea or vomiting. No chest pain No polyuria polydipsia. No diarrhea constipation. No edema. No palpitations no rash no fever. 07/02/24 Here for follow up ;No specific complaints ;Recent A1C is about 9% 11/15/24 Doing well. Interpretor was used [facility] Medical History Bunion of great toe Peripheral vascular disease of lower extremity Cellulitis Uncontrolled type 2 diabetes mellitus with hyperglycemia Physical exam Cellulitis of toe of right foot Hospital discharge follow-up Goiter Onychomycosis Vitamin D deficiency T2DM (type 2 diabetes mellitus) Left ankle pain B12 deficiency Left leg pain Acid reflux History of colonic polyps Chronic fatigue Carpal tunnel syndrome Daytime hypersomnia Autoimmune thyroiditis Fibromyalgia Morbid obesity Spondylosis, thoracic, 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 spine without myelopathy History of ulcer disease Sessile colonic polyp Obesity Tracee's disease nursing home (current) use of insulin Diabetic nephropathy associated with type 2 diabetes mellitus Diabetic retinopathy associated with type 2 diabetes mellitus Diabetic polyneuropathy associated with type 2 diabetes mellitus Iron (Fe) deficiency anemia History of Graves' disease Lumbar degenerative disc disease Back pain Anxiety and depression GERD (gastroesophageal reflux disease) Asthma Hyperlipidemia Hypertension Diabetes mellitus Polyarthralgia Surgical History History of carpal tunnel surgery of right wrist H/O endoscopy History of cataract extraction History of lumpectomy of left breast History of carpal tunnel surgery of left wrist Hx of section Hx laparoscopic cholecystectomy Hx of esophagogastroduodenoscopy Hx of colonoscopy H/O gastric bypass Family History Father Diabetes Hypertension Mother Diabetes Hypertension Maternal Grandmother Colon cancer Paternal Aunt Cancer of ear Social History Household Members: Family Housing: House Are you a primary child care leader to a significant other at home: No Do you presently have visiting nurse or other home services: No Alcohol intake: never Patient Tobacco Use Status: Former Tobacco user Tobacco use type: Cigarette Cigarette Packs Per Day: 1 Years Smoked: 20 e-Cigarette/Vaping Use: Never Used Second Hand Smoke Exposure: No service: No Current occupational status: disabled Current occupation: right hand dominant Cognitive needs: No Hearing needs: No Vision needs: Yes Female Reproductive History Menstrual Age of Menarche: 14 Physical Exam Vital Signs: Last Vital Signs Pulse 80 11/15/24 10:05 BP 130/70 11/15/24 10:15 Pulse Ox 100 11/15/24 10:05 Oxygen Delivery Method Room Air 11/15/24 10:05 BMI result Body Mass Index 24.4 Comfortable Neck supple no JVD. Lungs entry equal no rales. Heart S1-S2 heard no gallop or rub. Abdomen soft nontender. Neuro alert awake oriented. No asterixis. Extremities no edema. Results Reviewed Nephrology Results: Hgb, (12.0-16.0) 12.2 g/dl 11/11/24 WBC, (4.8-10.8) 6.1 X10*3/uL 11/11/24 Plt Count, (160-400) 249 X10*3/uL 11/11/24 Sodium, (135-145) 135 mmol/L 11/11/24 Potassium, (3.3-5.1) 4.3 mmol/L 11/11/24 Chloride, (96-108) 102 mmol/L 11/11/24 Carbon Dioxide, (22-29) 27 mmol/L 11/11/24 BUN, (9-16) 14 mg/dL 11/11/24 Creatinine, (0.5-1.4) 0.59 mg/dL 11/11/24 Calcium, (8.4-10.2) 10.1 mg/dL Δ 11/11/24 Urine Protein, (Neg-Trace) Negative mg/dL 11/11/24 Urine Creatinine 112.06 mg/dL 11/02/24 Assessment & Plan Assessment & Plan (1) Hyponatremia: Code(s): E87.1 - Hypo-osmolality and hyponatremia Category: Medical (2) Microalbuminuria: Code(s): R80.9 - Proteinuria, unspecified Category: Medical Plan Anitha has chronic asymptomatic mild hyponatremia. Clinically she appears euvolemic. Serum sodium is 132 Encouraged to limit free water intake Hypertension Blood pressure is suboptimal but better controlled Increase lisinopril from 10 mg up to 20 mg a day. However it is unclear if she is taking 10 mg or 20 mg at this time. Microalbuminuria in the setting of diabetes mellitus. Urine protein creatinine ratio is decreased. Continue DORITA inhibition Hypovitaminosis D As per her medication list she is on both vitamin D2 and D3 however levels are low. I suspect there has been issues with compliance. There seems to be a confusion with the medications. I have asked her to bring all her medications. I shall make adjustments after reviewing the medications. She has iron deficiency with mild anemia she will benefit from iron supplementation again I will start iron supplementation after reviewing her medications 11/15/24 BP acceptable Renal function is stable at baseline : Cr 0.9 DORITA i for renal protection Monitor urine protein excretion Vit D deficiency- continue Vit D supplement Ca normal Orders: Orders Basic Metabolic Panel 6 Months I10 - Essential (primary) hypertension Coding Level of Care Code Est Pt Level 4 (39618) Diagnoses Hyponatremia E87.1 Microalbuminuria R80.9
[2024-11-15 10:15] VITALS: BP 130/70
--- OUTSIDE RECORDS SUMMARY | 2024-11-15 12:20 | XMS_ITS | Clinical Summary ---
Author Organization 175 [facility] Address 175 [place] [address] Phone Care Team Providers Care Tailer Out Name Role Phone Analilia Schumacher MD Primary Care Provider [phone] Allergies No known active allergies Medications acetaminophen [...] Uncontrolled type 2 diabetes mellitus with hyperglycemia ([facility] V24, [facility] V28) 10/07/2024 Onychomycosis 10/07/2024 Vitamin D deficiency 10/07/2024 Type 2 diabetes mellitus ([facility] V24, [facility] V 28) 10/07/2024 Left ankle pain 10/07/2024 B12 deficiency 10/07/2024 Left leg pain 10/07/2024 Acid reflux 10/07/2024 History of colonic polyps 10/07/2024 Chronic fatigue 10/07/2024 Carpal tunnel syndrome 10/07/2024 Daytime hypersomnia 10/07/2024 Autoimmune thyroiditis 10/07/2024 Fibromyalgia 10/07/2024 Morbid obesity ([facility] V24, 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 V24, [facility] V28) 10/07/2024 Encounters Date Type Department Care Team Description 10/07/2024 9:30 AM EDT Consult Orthopedic Surgery - [address] [address] Kali Atris, DPM Dermatophytosis of nail (Primary Dx); Bunion of unspecified foot; Pain in toe of left foot; Pain in toe of right foot; Diabetic mononeuropathy simplex ([facility] V24, [facility] V28); Type II diabetes mellitus with peripheral circulatory disorder ([facility] V24, [facility] V28); Corns and callosities; Metatarsalgia of both [...] AM EST Office Visit Orthopedic Surgery - [place] [address] [address] Kali Artis, DPM [address] [address] Health Maintenance Due Date Last [...] Last 3 Months Insurance [place] - [place] [facility] PL[facility] Care Teams Tailer Out Relationship Specialty Start Date End Date Analilia Schumacher MD 2 [facility] , [address] [facility] Physician Associ D/B/A: [facility] RICHARDSON Fuentes PCP - General Internal Medicine 12/22/17
--- OUTSIDE RECORDS SUMMARY | 2024-11-15 12:20 | XMS_ITS | Clinical Summary ---
Author Organization [facility] Facility Address [address] [place] [address] Care Team Providers Care Night Clerk Auditor Name Role Phone Analilia Chaidez MD Primary Care Provider [phone] Allergies Active Allergy Reactions Criticality Noted Date [...] this topic Insurance Medicaid Medicaid Care Teams Night Clerk Auditor Relationship Specialty Start Date End Date Analilia Chaidez MD [address] [place], [place] PCP - General 03/06/20
== END 2024-11-15 10:19 | disposition home or self-care (01) ==
LOC: HO.HKA 10:03
PROVIDERS: PCP Internal Medicine; Visit Provider Internal Medicine Hypertension Specialist
DX: E87.1 Hypo-osmolality and hyponatremia (principal); R80.9 Proteinuria, unspecified
CPT/HCPCS: 99214

== ENCOUNTER → 2024-11-15 10:02 | Outpatient (BNVA) | payer OTHER, SELFPAY | PROVIDERS: PCP Internal Medicine; Visit Provider Internal Medicine Hypertension Specialist | DX: E87.1 Hypo-osmolality and hyponatremia (principal); I10 Essential (primary) hypertension; R80.9 Proteinuria, unspecified; E11.9 Type 2 diabetes mellitus without complications; E55.9 Vitamin D deficiency, unspecified; D50.9 Iron deficiency anemia, unspecified | CPT/HCPCS: 99212 ==

== ENCOUNTER 2024-11-16 07:56 | Outpatient (AMB) | payer OTHER, SELFPAY ==
--- OUTSIDE RECORDS SUMMARY | 2024-11-16 08:02 | XMS_ITS | Clinical Summary ---
Author Organization [facility] Facility Address [address] [place] [id number] Care Team Providers Care Nutrition Educator Name Role Phone Analilia Chaidez MD Primary Care Provider [phone] Allergies Active Allergy Reactions Criticality Noted Date [...] this topic Insurance Medicaid Medicaid Care Teams Nutrition Educator Relationship Specialty Start Date End Date Analilia Chaidez MD [address] [place], [place] PCP - General 03/06/20
--- OUTSIDE RECORDS SUMMARY | 2024-11-16 08:02 | XMS_ITS | Clinical Summary ---
Author Organization 175 [facility] Address [address] [place] [address] Phone Care Team Providers Care Cargo Vessel Stewardess Name Role Phone Analilia Schumacher MD Primary Care Provider [phone] Allergies No known active allergies Medications acetaminophen [...] Uncontrolled type 2 diabetes mellitus with hyperglycemia ([facility] V24, [facility] V28) 10/07/2024 Onychomycosis 10/07/2024 Vitamin D deficiency 10/07/2024 Type 2 diabetes mellitus ([facility] V24, [facility] V 28) 10/07/2024 Left ankle pain 10/07/2024 B12 deficiency 10/07/2024 Left leg pain 10/07/2024 Acid reflux 10/07/2024 History of colonic polyps 10/07/2024 Chronic fatigue 10/07/2024 Carpal tunnel syndrome 10/07/2024 Daytime hypersomnia 10/07/2024 Autoimmune thyroiditis 10/07/2024 Fibromyalgia 10/07/2024 Morbid obesity ([facility] V24, [facility] V28) 2024 Spondylosis 10/07/2024 History of ulcer disease 10/07/2024 Sessile colonic polyp 10/07/2024 grant writer (current) use of i nsulin ([facility] V24, [facility] V28) 10/07/2024 Encounters Date Type Department Care Team Description 10/07/2024 9:30 AM EDT Consult Orthopedic Surgery - [address] [address] Kali Artis, DPM Dermatophytosis of nail (Primary Dx); Bunion of unspecified foot; Pain in toe of left foot; Pain in toe of right foot; Diabetic mononeuropathy simplex ([facility] V24, [facility] V28); Type II diabetes mellitus with peripheral circulatory disorder ([facility] V24, [facility] V28); Corns and callosities; [...] AM EST Office Visit Orthopedic Surgery - [place] [address] [address] Kali Artis, DPM [address] [address] Health Maintenance Due Date Last [...] Last 3 Months Insurance MEDICAID - [place] [facility] PL[facility] Care Teams Cargo Vessel Stewardess Relationship Specialty Start Date End Date Analilia Schumacher MD 2 [facility] , [address] [facility] D/B/A: [facility] [place] Fuentes PCP - General Internal Medicine 12/22/17
--- NOTE | 2024-11-16 08:50 | A.OFFVIS_ITS ---
Intake Intake Visit Reasons: 60 min Editorial Writer Required: Yes Editorial Writer Language: Tile Edger Services: Editorial Writer Present Editorial Writer Name: [place]ian [facility] [place] Accompanied by: Self / Same As Patient Allergies adhesive tape (ADHESIVE TAPE) Allergy (Intermediate, Verified 11/15/24 10:07) RASH pioglitazone (From ACTOS) Allergy (Intermediate, Verified 11/15/24 10:07) facial edema,rash latex Allergy (Mild, Verified 11/15/24 10:07) Rash HPI Comprehensive Diabetes Asmnt Most Recent Diabetes Results: 2 Hemoglobin A1c 8.3 % 05/14/18 Microalb/Creat Ratio, (<30) 24.0 ug/mg cr 11/02/24 Cholesterol, (<200) 168 mg/dL 11/01/24 HDL Cholesterol, (>40) 64 mg/dL 11/01/24 Triglycerides, (<150) 81 mg/dL 11/01/24 Creatinine, (0.5-1.4) 0.59 mg/dL 11/11/24 BUN, (9-16) 14 mg/dL 11/11/24 Sodium, (135-145) 135 mmol/L 11/11/24 Potassium, (3.3-5.1) 4.3 mmol/L 11/11/24 Chloride, (96-108) 102 mmol/L 11/11/24 Carbon Dioxide, (22-29) 27 mmol/L 11/11/24 Calcium, (8.4-10.2) 10.1 mg/dL Δ 11/11/24 AST, (5-31) 26 U/L 11/11/24 ALT, (0-31) 55 U/L H 11/11/24 Total Protein, (6.5-8.0) 6.9 g/dL 11/11/24 Albumin, (3.5-5.0) 4.2 g/dL 11/11/24 [facility] Medical History Bunion of great toe Peripheral vascular disease of lower extremity Cellulitis Uncontrolled type 2 diabetes mellitus with hyperglycemia Physical exam Cellulitis of toe of right foot Hospital discharge follow-up Goiter Onychomycosis Vitamin D deficiency T2DM (type 2 diabetes mellitus) Left ankle pain B12 deficiency Left leg pain Acid reflux History of colonic polyps Chronic fatigue Carpal tunnel syndrome Daytime hypersomnia Autoimmune thyroiditis Fibromyalgia Morbid obesity Spondylosis, thoracic, 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 spine without myelopathy History of ulcer disease Sessile colonic polyp Obesity 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 Diabetic nephropathy associated with type 2 diabetes mellitus Diabetic retinopathy associated with type 2 diabetes mellitus Diabetic polyneuropathy associated with type 2 diabetes mellitus Iron (Fe) deficiency anemia History of Graves' disease Lumbar degenerative disc disease Back pain Anxiety and depression GERD (gastroesophageal reflux disease) Asthma Hyperlipidemia Hypertension Diabetes mellitus Polyarthralgia Surgical History History of carpal tunnel surgery of right wrist H/O endoscopy History of cataract extraction History of lumpectomy of left breast History of carpal tunnel surgery of left wrist Hx of section Hx laparoscopic cholecystectomy Hx of esophagogastroduodenoscopy Hx of colonoscopy H/O gastric bypass Family History Father Diabetes Hypertension Mother Diabetes Hypertension Maternal Grandmother Colon cancer Paternal Aunt Cancer of ear Social History Household Members: Family Housing: House Are you a primary home care physical therapist to a significant other at home: No Do you presently have visiting nurse or other home services: No Alcohol intake: never Patient Tobacco Use Status: Former Tobacco user Tobacco use type: Cigarette Cigarette Packs Per Day: 1 Years Smoked: 20 e-Cigarette/Vaping Use: Never Used Second Hand Smoke Exposure: No service: No Current occupational status: disabled Current occupation: right hand dominant Cognitive needs: No Hearing needs: No Vision needs: Yes Female Reproductive History Menstrual Age of Menarche: 14 Assessment & Plan Assessment & Plan (1) Diabetic retinopathy associated with type 2 diabetes mellitus: Code(s): E11.319 - Type 2 diabetes mellitus with unspecified diabetic retinopathy without macular edema Plan: [email or web address]: [email or web address]: [email or web address] Patient presents for pump training for T slim with control IQ, and Dexcom G7 insulin pump therapy with Humalog U200 After review of patient's glucose data it appears that patient is taking off insulin pump frequently. Patient reports she does this because she is concerned about hypoglycemia. Patient is in manual mode 59%, which means she is not getting the full advantage of control IQ. Instructed patient to only take insulin pump off when showering. If she is consistently having hypoglycemia, call clinic. Plan: Patient agreed to consistently wear insulin pump for the next 9 days. She will follow-up with Diabetes Education on 11/25/2024, at that visit if we have consistent control IQ data we can adjust pump settings if needed. Patient continues on Humalog U 200 Patient has upcoming appointment with Dr. Pickett, at that visit she will transition back to Humulin U 500. Discussed with patient the importance of always wearing insulin pump for best glucose control Instructed patient not to switch over until we reset insulin pump settings. If she does not change insulin pump settings before starting U500 she is at high risk for hypoglycemia Safety information: Importance of a backup plan, for manual injections, proper prescriptions and emergency supplies ketone strips, and rules for testing for ketones Setting verified by CDCES, Pump Settings:with U200 insulin Basal rate(s) (units/hour) : 12 AM? to 5 AM 5 units / hr 5AM to 9 AM 5 units / hr 9 AM? to 9 PM? 4.2 units / hr 9 PM to 12 AM 6 units / hr Bolus setting Insulin Carbohydrate Ratio (s) 12 AM? to 5 AM?1:3 5 AM? to 9AM ? 1:1.5 9AM to 9 PM 1:2 9 PM to 12 AM 1:7 Correction Factor / Sensitivity Factor 12 AM? to 5 AM?1:8 5 AM to 9 AM 1:3 9 AM to 9 PM 1:4 9 PM to 12 AM 1:5 Insulin action time: 5 hours in control IQ Coding Level of Care Code Est Pt Level 1 (14118) Diagnoses Diabetic retinopathy associated with type 2 diabetes mellitus E11.319
== END 2024-11-16 08:58 | disposition home or self-care (01) ==
LOC: HO.ENCR 07:57
PROVIDERS: PCP Internal Medicine; Visit Provider Registered Nurse Diabetes Educator
DX: E11.319 Type 2 diabetes mellitus with unspecified diabetic retinopathy without macular edema (principal)

== ENCOUNTER → 2024-11-16 07:56 | Outpatient (BNVA) | payer OTHER, SELFPAY | PROVIDERS: PCP Internal Medicine; Visit Provider Registered Nurse Diabetes Educator | DX: Z46.81 Encounter for fitting and adjustment of insulin pump (principal); E11.319 Type 2 diabetes mellitus with unspecified diabetic retinopathy without macular edema; Z79.4 Long term (current) use of insulin | CPT/HCPCS: 99211 ==

== ENCOUNTER 2024-12-13 12:09 | Outpatient (AMB) | payer OTHER, SELFPAY ==
--- NOTE | 2024-12-13 11:26 | A.OFFVIS_ITS ---
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 blood pressure kit-extra large As directed blood sugar diagnostic (FreeStyle Lite Strips) TEST 4 TIMES DAILY blood-glucose meter (FreeStyle Lite Meter kit) TEST 4 TIMES DAILY cane As directed cephalexin 500 mg PO Q12H cholecalciferol (vitamin D3) 50 mcg PO DAILY 90 days citalopram 10 mg PO DAILY cyanocobalamin (vitamin B-12) 1,000 mcg sublingual DAILY docusate sodium (Colace) 100 mg PO DAILY ergocalciferol (vitamin D2) 1,250 mcg PO QWEEK 90 days escitalopram oxalate 10 mg PO DAILY folic acid 1 mg PO DAILY furosemide 20 mg PO BID 90 days glucagon 3 mg/actuation (Baqsimi) 3 mg intranasal .prn PRN 30 days MDD 6 mg insulin degludec (Tresiba FlexTouch U-200 insulin) 70 units (0.35 mL) subcut DAILY 30 days insulin lispro (Humalog KwikPen U-200 Insulin) up to 425 units per day via pump subcutaneously use as directed; 30 days insulin syringe-needle U-100 (Advocate Syringes) Use 1 needle once a month lidocaine 5% (Lidoderm) 1 patch topical DAILY PRN MDD remove after 12 hours lisinopril 20 mg PO DAILY montelukast 10 mg PO DAILY 90 days naloxone 4 mg/actuation (Narcan) 4 mg intranasal Q2M PRN 30 days nebulizers (AeroEclipse II Nebulizer) As directed ondansetron 4 mg PO Q12H oxycodone-acetaminophen 5-325 mg 1 tab PO Q8H PRN 30 days pantoprazole 40 mg PO DAILY 30 days pen needle, diabetic As directed qid prn pump failure pen needle, diabetic (Comfort EZ Pen [place]) As directed once daily, prn pump failure can increase to qid pen needle, diabetic (Comfort EZ Pen [place]) As directed daily: In the event a pump failure use up to q.i.d. rosuvastatin 40 mg PO DAILY 90 days Shower Chair As directed [skin tac apply to skin at pump site and sensor site after cleansing with alcohol.Insert pump cannula/sensor after skin tac has allowed to dry. 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*: Details: Start time: 11.20am, End time: 12.10pm ?I spent 45 minutes speaking with the patient on the phone plus an additional 5 minutes reviewing and updating records for a total of 50 minutes HPI Comments Details: Overall weight loss: 112.4lbs, or 40.67% TBWL Is doing 1 egg for breakfast, a Fairlife protein shake, and one meal PFSH Medical History (Updated 12/13/24 @ 11:17 by Vishal Sanders MD) Postgastrectomy malabsorption Bunion of great toe Peripheral vascular disease of lower extremity Cellulitis Uncontrolled type 2 diabetes mellitus with hyperglycemia Physical exam Cellulitis of toe of right foot Hospital discharge follow-up Goiter Onychomycosis Vitamin D deficiency T2DM (type 2 diabetes mellitus) Left ankle pain B12 deficiency Left leg pain Acid reflux History of colonic polyps Chronic fatigue Carpal tunnel syndrome Daytime hypersomnia Autoimmune thyroiditis Fibromyalgia Morbid obesity Spondylosis, thoracic, 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 spine without myelopathy History of ulcer disease Sessile colonic polyp Obesity 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 Diabetic nephropathy associated with type 2 diabetes mellitus Diabetic retinopathy associated with type 2 diabetes mellitus Diabetic polyneuropathy associated with type 2 diabetes mellitus Iron (Fe) deficiency anemia History of Graves' disease Lumbar degenerative disc disease Back pain Anxiety and depression GERD (gastroesophageal reflux disease) Asthma Hyperlipidemia Hypertension Diabetes mellitus Polyarthralgia Surgical History History of carpal tunnel surgery of right wrist H/O endoscopy History of cataract extraction History of lumpectomy of left breast History of carpal tunnel surgery of left wrist Hx of section Hx laparoscopic cholecystectomy Hx of esophagogastroduodenoscopy Hx of colonoscopy H/O gastric bypass Family History Father Diabetes Hypertension Mother Diabetes Hypertension Maternal Grandmother Colon cancer Paternal Aunt Cancer of ear Social History Household Members: Family Housing: House Are you a primary day care attendant to a significant other at home: No Do you presently have visiting nurse or other home services: No Alcohol intake: never Patient Tobacco Use Status: Former Tobacco user Tobacco use type: Cigarette Cigarette Packs Per Day: 1 Years Smoked: 20 e-Cigarette/Vaping Use: Never Used Second Hand Smoke Exposure: No service: No Current occupational status: disabled Current occupation: right hand dominant Cognitive needs: No Hearing needs: No Vision needs: Yes Female Reproductive History Menstrual Age of Menarche: 14 Telehealth Telehealth Telehealth Platform: Telephone Location of provider rendering services: practice address Location of patient: address on file Patient Identification confirmed using: Name, : Yes Telehealth method: voice only Patient verbally consented to treatment: Yes Patient verbally consented to billing insurance company: Yes Patient informed of any privacy concerns related to visit: Yes Minutes spent on Phone/Video with Pt.: 50 Assessment & Plan Assessment & Plan (1) Excess skin: Code(s): L98.7 - Excessive and redundant skin and subcutaneous tissue Category: Medical Plan: 1. Plan for panniculectomy and bilateral brachioplasty. Risks of infection, bleeding, asymmetry, wound dehiscence and blood clots were discussed with the patient. 2. You will have a drain the abdomen that may stay a few weeks before it may be removed 3. You will need to be doing sponge baths the first 1-2 weeks. No showers. You need to have help at home to get you up and limit your activities as much as possible for at least the 4-6 weeks after surgery 4. We will arrange for a visiting nurse to come at home to help you with dressing changes and send me pictures of the procedures. We will send at your home supplies for the dressing changes. 5. Continue present nutritional plan of TWO 4oz of Fairlife mixed with 4oz almond milk at 6am-8am and 9am-11am, one Pure protein bar at 12pm-2pm, another 4oz of Fairlife mixed with 4oz almond milk at?3pm-5pm, dinner at 6pm (4 forks of meat or fish and 4 forks of salad or vegetables) and one more 4oz of Fairlife mixed with 4oz almond milk at 8pm-10pm. This will improve weight loss and healing after surgery. 6. Continue all your medications until the day after surgery, EXCEPT the Mounjaro. The Mounjaro needs to be stopped at latest on 12/23/2024. Do not re- start it after surgery until I tell you so. 7. Start the Colace now and take one per day, daily. 8. Do blood work not fasting any day between Friday12/20/24 and Friday12/23/24 and tack picker the antibiotic prescription from your pharmacy 9. Risks and complications were discussed the possibility of bleeding that may require transfusion, loss of the umbilicus, wound dehiscence or infection, dog ears , flap asymmetry. We also discussed the importance of strict avoidance of weight lifting. 10. Avoid aspirin, motrin, ibuprofen, Excedrin, Meloxicam, Aleve, Advil, Naproxyn. Only Tylenol 11. Check your blood sugar daily and let me know if it is below 100. 12. Please buy a body composition scale and a blood pressure monitor 13. As of tomorrow, please check your blood pressure daily in the morning. If your blood pressure is: Below 120/70: do not take the Lisinopril or Furosemide 121/71 to 135/85: take HALF Lisinopril and HALF Furosemide Over 136/86: take the whole Lisinopril and the whole Furosemide 14. Please take at the day of surgery the following medications: ONLY the Lisinopril, if the blood pressure that day is high enough to justify it based on the parameters at the previous bullet point. Orders: Orders Complete Blood Count Auto Diff Today L98.7 - Excessive and redundant skin and subcutaneous tissue Comprehensive Met. Panel Today L98.7 - Excessive and redundant skin and subcutaneous tissue Type and Screen Today L98.7 - Excessive and redundant skin and subcutaneous tissue Partial Thromboplastin Time Today L98.7 - Excessive and redundant skin and subcutaneous tissue Prothrombin Time INR Today L98.7 - Excessive and redundant skin and subcutaneous tissue Medications: New docusate sodium (Colace) Start now and take one daily until surgery and continue after surgery as well 100 mg PO DAILY 90 caps 0RF cephalexin 500 mg PO Q12H 60 caps 0RF ondansetron Only take one every 12 hours as needed if you have nausea 4 mg PO Q12H 20 tabs 0RF nausea and vomiting
[2024-12-13 11:54] VITALS: BMI 24.2
== END 2024-12-13 12:11 | disposition home or self-care (01) ==
LOC: HO.HBS 12:09
PROVIDERS: Visit Provider Surgery
DX: L98.7 Excessive and redundant skin and subcutaneous tissue (principal)
CPT/HCPCS: 98015

== ENCOUNTER 2024-12-21 07:51 | Outpatient (AMB) | payer OTHER, SELFPAY ==
--- OUTSIDE RECORDS SUMMARY | 2024-12-21 07:56 | XMS_ITS | Clinical Summary ---
Author Organization 175 [facility] Address [address] [place] [address] Phone Care Team Providers Care Fitness Sales Consultant Name Role Phone Analilia Schumacher MD Primary Care Provider [phone] Allergies No known active allergies Medications acetaminophen [...] Uncontrolled type 2 diabetes mellitus with hyperglycemia [place] [place] [facility] [place]28[place] 10/07/2024 Onychomycosis 10/07/2024 Vitamin D deficiency 10/07/2024 Type 2 diabetes mellitus [place] [place] [facility] V 28) 10/07/2024 Left ankle pain 10/07/2024 B12 deficiency 10/07/2024 Left leg pain 10/07/2024 Acid reflux 10/07/2024 History of colonic polyps 10/07/2024 Chronic fatigue 10/07/2024 Carpal tunnel syndrome 10/07/2024 Daytime hypersomnia 10/07/2024 Autoimmune thyroiditis 10/07/2024 Fibromyalgia 10/07/2024 Morbid obesity ([facility] [place] [facility] [place]28) 2024 Spondylosis 10/07/2024 History of ulcer disease 10/07/2024 Sessile colonic polyp 10/07/2024 FPC (current) use of i nsulin ([facility] [place] [facility] [place]28) 10/07/2024 Encounters Date Type Department Care Team Description 10/07/2024 9:30 AM EDT Consult Orthopedic Surgery - [address] [address] Kali Artis, DPM Dermatophytosis of nail (Primary Dx); Bunion of unspecified foot; Pain in toe of left foot; Pain in toe of right foot; Diabetic mononeuropathy simplex [place] [place] [facility] V28); Type II diabetes mellitus with peripheral circulatory disorder [place] [place], [facility] V28[place] Corns and callosities; Metatarsalgia of both [...] AM EST Office Visit Orthopedic Surgery - [place] [address] [phone] Kali Artis, DPM [address] [place] [phone] Health Maintenance Due Date Last Done Comments Breast Cancer Screening 1976 Colorectal Cancer Screening: Colonoscopy 1976 Diabetes: Annual GFR (Glomerular Filtration Rate) 1976 Diabetes: Annual Foot Exam 1986 Diabetes: Annual Retina Eye Exam 1986 Cervical Cancer Screening: Pap Smear 1997 Depression Screening 02/25/2024 Cholesterol Screening (Lipid Panel) 07/15/2024 HIV Screening 07/15/2024 Hepatitis C Screening 07/15/2024 Social Influencers of Health Screening 07/15/2024 Diabetes: Annual Urine Albumin-Creatinine Ratio (uACR) 10/07/2024 Diabetes: Blood Sugar Control Test (HGBA1C) 10/07/2024 Influenza Vaccine (#1) 2024 , 11/28/2022, 11/22/2021, Additional history exists DTaP,Tdap,and Td Vaccines (2 - Td or Tdap) 01/27/2034 01/28/2024 RSV Immunization Adult Patients (1 - 1-dose 75+ series) 2051 Hepatitis A Vaccines Aged Out 02/19/2011, 10/26/2010, [...] Last 3 Months Insurance MEDICAID - [place] [facility] Care Teams Fitness Sales Consultant Relationship Specialty Start Date End Date Analilia Schumacher MD 2 [facility] , [facility] [address] [facility] D/B/A: [facility] [place], [place] PCP - General Internal Medicine 12/22/17
--- OUTSIDE RECORDS SUMMARY | 2024-12-21 07:56 | XMS_ITS | Clinical Summary ---
Author Organization [facility] Facility Address [address] [place] [address] Care Team Providers Care Recorder Gravity Prospecting Name Role Phone Analilia Chaidez MD Primary Care Provider [phone] Allergies Active Allergy Reactions Criticality Noted Date [...] this topic Insurance Medicaid Medicaid Care Teams Recorder Gravity Prospecting Relationship Specialty Start Date End Date Analilia Chaidez MD [address] [place], [place] PCP - General 03/06/20
--- NOTE | 2024-12-21 07:57 | A.OFFVIS_ITS ---
Vital Signs 3 12/21/24 08:02 Height 5 ft 9 in Weight 167 lb 8.821 oz BMI 24.7 BP 126/72 Blood Pressure Location Rt brachial Position Sitting Pulse 81 Pulse Source Pulse Oximeter Pulse Oximetry (%) 100 Oxygen Delivery Method Room Air Intake Visit Reasons: DM Intake Note: Patient present today to follow up on Type 1 Diabetes Mellitus. Patient states she is experiencing frequent hypoglycemia. Patient receives Tandem insulin pump and Dexcom G7 supplies through: [employer] Last Diabetic Eye exam: 12/2023 Last Podiatry Visit: Has not seen a Software Engineer Most Recent HgA1C: 9.2% 11/01/2024 Random Glucose: 194 mg/dL L Green Building Engineer Required: Yes Green Building Engineer Language: Gas Revers[employer] Services: Green Building Engineer Offered & Declined (DR Pickett Speak Fluent [place]) Green Building Engineer [facility] Information Interpreted: non-clinical & clinical Accompanied by: Self / Same As Patient Allergies adhesive tape (ADHESIVE TAPE) Allergy (Intermediate, Verified 12/21/24 08:00) RASH pioglitazone (From ACTOS) Allergy (Intermediate, Verified 12/21/24 08:00) facial edema,rash latex Allergy (Mild, Verified 12/21/24 08:00) Rash HPI Comments Details: 49 YO F with PMHx T2DM who is seen in F/U for the same. She has a history of prior bariatric surgery in June of 2015. She is on u200 insulin in an insulin pump along with Jose Dundantero. She previously was on U500 insulin and was struggling to achieve control with this. Her insulin was changed to U 200 which has a similar action of U 100 and more recently a once daily basal shot of Tresiba was added due to insulin resistance. Last A1C on u500 was 10.4%. Patient previously seen by Dr. Aguayo in 10/2024. This is my first time seen the patient. Interval history: During the last CDE visit it was discussed to change her pump to U500. The patient reports frequent episodes of hypoglycemia. She mentions that the insulin pump settings may be contributing to these episodes, as it provides more corrections than necessary, leading to fluctuations in her blood glucose levels. There are concerns about its optimal use, as she often disconnects it due to hypoglycemic episodes. The patient has not been consistently using the continuous glucose monitor (CGM), which is crucial for managing her condition effectively. The patient's dietary habits include consuming a high-protein diet with minimal carbohydrate intake, which may affect her insulin requirements. She reports walking for about half an hour as her form of exercise. Has not received steroids recently. Current medication: Tresiba 70 units Jardiance 10 mg QD Mounjaro 15 mg weekly She is on Humalog U 200 insulin in her pump. She has a tandem T slim X Last eye dr.: , Has bilateral RD, stable. No injection or laser. Bolus setting Insulin Carbohydrate Ratio (s) 12 AM? to 5 AM?1:3 5 AM? to 9am? 1:5 9A to 9P= 1:2 9AM to 9PM 1:2 9PM to 12AM 1.5 Correction Factor / Sensitivity Factor 12 AM? to 5 AM? 1:10 5:00am to 9AM 1:5 9am to 9pm 1:4 Glucose target range 00:00 120 05:00 120 09:00 120 21:00 120 Active Insulin Time:?2.5 Basal Rates 12A= 6 5A= 6 9A= 4.2 9 PM= 6 Insulin pump change: daily. Has retinopathy last eye exam 7 mos ago Has neuropathy on gabapentin. Symptoms: Numbness and tingling no pain or cramping Has nephropathy on ODRITA inhibitor 03/08/2024 eGFR>60 recently seen by Nephrology at [facility] for mild chronic hyponatremia and diabetic kidney disease 03/08/24 35.0 Has HLD on statin 03/08/2024 70 Has peripheral vascular disease status post stent 2023 She has an appointment with Podiatry this week. Has bilateral bunions. She does have older diabetic shoes. Sees [facility] on an ongoing basis has appt Physical exam General: Well appearing. NAD. Not Cushingoid or Acromegalic CV: RRR, no murmur. No edema. Resp: Lungs clear to auscultation bilaterally Abdomen: Soft, nontender. nondistended Extremities/Neuro: No weakness or tremor of outstretched hands Laboratory Tests 11/02/24 11/03/24 11/11/24 07:13 09:08 11:49 Sodium 135 Potassium 4.3 Creatinine 0.59 Estimated GFR > 60 Glucose (Clinic) 205 H 25-OH Vitamin D Total 15.7 L Microalb/Creat Ratio 24.0 12/21/24 08:06 Sodium Potassium Creatinine Estimated GFR Glucose (Clinic) 194 H 25-OH Vitamin D Total Microalb/Creat Ratio CGM/Pump data: Interpretation: Persistent hyperglycemia associated with patient is noncompliance with pumps and CGM. She also has scattered episode of hypoglycemia. [facility]LY [facility] Medical History (Updated 12/21/24 @ 10:49 by Leann Bills MD) Postgastrectomy malabsorption Bunion of great toe Peripheral vascular disease of lower extremity Cellulitis Uncontrolled type 2 diabetes mellitus with hyperglycemia Physical exam Cellulitis of toe of right foot Hospital discharge follow-up Goiter Onychomycosis Vitamin D deficiency T2DM (type 2 diabetes mellitus) Left ankle pain B12 deficiency Left leg pain Acid reflux History of colonic polyps Chronic fatigue Carpal tunnel syndrome Daytime hypersomnia Autoimmune thyroiditis Fibromyalgia Morbid obesity Spondylosis, thoracic, 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 spine without myelopathy History of ulcer disease Sessile colonic polyp Obesity Tracee's disease 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 Diabetic nephropathy associated with type 2 diabetes mellitus Diabetic retinopathy associated with type 2 diabetes mellitus Diabetic polyneuropathy associated with type 2 diabetes mellitus Iron (Fe) deficiency anemia History of Graves' disease Lumbar degenerative disc disease Back pain Anxiety and depression GERD (gastroesophageal reflux disease) Asthma Hyperlipidemia Hypertension Diabetes mellitus Polyarthralgia Surgical History History of carpal tunnel surgery of right wrist H/O endoscopy History of cataract extraction History of lumpectomy of left breast History of carpal tunnel surgery of left wrist Hx of section Hx laparoscopic cholecystectomy Hx of esophagogastroduodenoscopy Hx of colonoscopy H/O gastric bypass Family History Father Diabetes Hypertension Mother Diabetes Hypertension Maternal Grandmother Colon cancer Paternal Aunt Cancer of ear Social History Household Members: Family Housing: House Are you a primary primary care coordinator to a significant other at home: No Do you presently have visiting nurse or other home services: No Alcohol intake: never Patient Tobacco Use Status: Former Tobacco user Tobacco use type: Cigarette Cigarette Packs Per Day: 1 Years Smoked: 20 e-Cigarette/Vaping Use: Never Used Second Hand Smoke Exposure: No service: No Current occupational status: disabled Current occupation: right hand dominant Cognitive needs: No Hearing needs: No Vision needs: Yes Female Reproductive History Menstrual Age of Menarche: 14 Physical Exam Vital Signs: Last Vital Signs Pulse 81 12/21/24 08:02 BP 126/72 12/21/24 08:02 Pulse Ox 100 12/21/24 08:02 Oxygen Delivery Method Room Air 12/21/24 08:02 BMI result Body Mass Index 24.7 Const Other: Absence of Cushingoid features. Absence of acromegalic features. Neck exam reveals nl size thyroid about 15 gms. No thyroid nodules palpable. Heart S1 S2, Reg R/R. No M/R G. Skin exam reveals absence of vitiligo or acanthosis nigricans. No edema Visual exam of foot performed. Bilateral bunion deformity, No ulcerations or open lesions. No inter digit maceration or fissuring. No onychomycosis, no callouses. Sensation intact to monofilament exam. Vibratory sensation is normal with 128 Hz tuning fork. Office Procedures Glucose Monitoring Details Details: See [facility] [address] - Glucose Monitoring, continuous Procedure code (CPT) selection complete Results Reviewed Results Reviewed: Laboratory Last Values Glucose (Clinic) 194 mg/dL (60-115) H 12/21/24 08:06 Assessment & Plan Assessment & Plan (1) Uncontrolled type 2 diabetes mellitus with hyperglycemia: Code(s): E11.65 - Type 2 diabetes mellitus with hyperglycemia Category: Medical Plan: 49-year-old female with a history of type 2 diabetes being treated with Mounjaro , Invokana and U-200 insulin and Tresiba with poor glycemic control and known microvascular complications namely nephropathy, retinopathy and neuropathy, seen for evaluation and management of type 2 diabetes on insulin pump. The patient has insulin-dependent diabetes managed with an insulin pump and CGM, but is experiencing frequent hypoglycemia (especially <80?70 mg/dL) and persistent hyperglycemia (average >250 mg/dL). There is significant glycemic variability, likely due to inconsistent use of the pump and CGM, suboptimal carbohydrate counting, and possible overcorrection by the pump algorithm. The patient often disconnects the pump due to fear of hypoglycemia and is not consistently entering carbohydrate intake. Plan Reinforce consistent use of both the insulin pump and CGM to allow the closed- loop system to function properly Will transition the patient to U 500 insulin pump given patient high requirements for insulin. Adjust pump settings (basal rates, correction factors, [id number]-[id number] ratios) to be used with U500 (see below), I personally held the patient with the insulin pump setting changes Provide further education on accurate carbohydrate counting and encourage more regular meal patterns Advise treating hypoglycemia with rapid-acting carbohydrates and review alternative options if oral intake is limited Insulin pump settings with change Fgpwxbm-qf-Ybcroczzyagm Ratio (ICR) Original (U-200): 12 AM?5 AM: 1 unit per 3 g carbs (1:3) 5 AM?9 AM: 1:5 9 AM?9 PM: 1:2 9 PM?12 AM: 1:1.5 Convert to U-500: New ICR = Old ICR ? 2.5 12 AM?5 AM: 1:7.5 (1 unit per 7.5 g carbs) 5 AM?9 AM: 1:12.5 9 AM?9 PM: 1:5 9 PM?12 AM: 1:3.75 2. Correction Factor / Sensitivity Factor Original (U-200): 12 AM?5 AM: 1 unit lowers 10 mg/dL (1:10) 5 AM?9 AM: 1:5 9 AM?9 PM: 1:6 Convert to U-500: New Correction Factor = Old Correction Factor ? 2.5 12 AM?5 AM: 1:25 (1 unit lowers 25 mg/dL) 5 AM?9 AM: 1:12.5 9 AM?9 PM: 1:15 3. Glucose Target Range The target glucose values remain the same (120 mg/dL at all times). 4. Active Insulin Time The pharmacokinetics of regular insulin (U-500) are similar to U-200 regular insulin, so keep at 2.5 hours unless clinical experience suggests otherwise. 5. Basal Rates Original (U-200): 12 AM: 6 units/hr 5 AM: 6 units/hr 9 AM: 4.2 units/hr 9 PM: 6 units/hr Convert to U-500: New Basal Rate = Old Basal Rate ? 2.5 12 AM: 2.4 units/hr 5 AM: 2.4 units/hr 9 AM: 1.68 units/hr 9 PM: 2.4 units/hr (2) 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: Code(s): Z79.4 - 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 Category: Medical Plan: TDD: 192 ? 0.8 = 154 units/day Split TDD into 2injections per day: 60% AM, 40% PM U 500 AM: 92 units PM: 62 units Plan 55 minutes spent reviewing previous records, labs, imaging, education and documenting in the chart Orders: Orders 2 AMB Glucose Monitoring Today E11.65 - Type 2 diabetes mellitus with hyperglycemia, Z79.4 - 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 Referrals 2 Diabetes Education Referral E11.65 - Type 2 diabetes mellitus with hyperglycemia, Z79.4 - watermelon inspector (current) use of insulin Medications: New 2 insulin regular hum U-500 conc (Humulin R U-500 (Concentrated) Insulin) up to 425 units per day via pump subcutaneously use as directed 70 mL 11RF E11.65 - Type 2 diabetes mellitus with hyperglycemia Discontinued 2 insulin lispro (Humalog KwikPen U-200 Insulin) Discontinued Reason: Doctor's Order up to 425 units per day via pump subcutaneously use as directed; 30 days 70 mL 11RF E11.65 - Type 2 diabetes mellitus with hyperglycemia Coding Level of Care Code Est Pt Level 4 (63336) Diagnoses Uncontrolled type 2 diabetes mellitus with hyperglycemia E11.65 watermelon inspector (current) use of insulin Z79.4 CPT Codes Details - CPT: 40949 - Glucose Monitoring, continuous ([id number]) Time Spent (min) 55
[2024-12-21 08:02] VITALS: BP 126/72; PULSE 81; O2SAT 100; BMI 24.7
[2024-12-21 08:10] LABS: Glucose, Whole Blood 194 mg/dL (60-115)
== END 2024-12-21 09:37 | disposition home or self-care (01) ==
LOC: HO.ENCR 07:52
PROVIDERS: Visit Provider Student in an Organized Health Care Education/Training Program
DX: E11.65 Type 2 diabetes mellitus with hyperglycemia (principal); Z79.4 Long term (current) use of insulin
CPT/HCPCS: 99214

== ENCOUNTER → 2024-12-21 07:51 | Outpatient (BNVA) | payer OTHER, SELFPAY | PROVIDERS: Visit Provider Student in an Organized Health Care Education/Training Program | DX: E11.42 Type 2 diabetes mellitus with diabetic polyneuropathy (principal) | CPT/HCPCS: 99211 ==

== ENCOUNTER 2024-12-21 09:47 | Outpatient (AMB) | payer OTHER, SELFPAY ==
--- NOTE | 2024-12-21 09:47 | MHC.AMDMED ---
Intake Intake Visit Reasons: 30 min Allergies adhesive tape (ADHESIVE TAPE) Allergy (Intermediate, Verified 12/21/24 08:00) RASH pioglitazone (From ACTOS) Allergy (Intermediate, Verified 12/21/24 08:00) facial edema,rash latex Allergy (Mild, Verified 12/21/24 08:00) Rash HPI Comprehensive Diabetes Asmnt Most Recent Diabetes Results: Creatinine, (0.5-1.4) 0.59 mg/dL 11/11/24 BUN, (9-16) 14 mg/dL 11/11/24 Sodium, (135-145) 135 mmol/L 11/11/24 Potassium, (3.3-5.1) 4.3 mmol/L 11/11/24 Chloride, (96-108) 102 mmol/L 11/11/24 Carbon Dioxide, (22-29) 27 mmol/L 11/11/24 Calcium, (8.4-10.2) 10.1 mg/dL Δ 11/11/24 AST, (5-31) 26 U/L 11/11/24 ALT, (0-31) 55 U/L H 11/11/24 Total Protein, (6.5-8.0) 6.9 g/dL 11/11/24 Albumin, (3.5-5.0) 4.2 g/dL 11/11/24 [facility] Medical History (Updated 12/13/24 @ 11:17 by Vishal Sanders MD) Postgastrectomy malabsorption Bunion of great toe Peripheral vascular disease of lower extremity Cellulitis Uncontrolled type 2 diabetes mellitus with hyperglycemia Physical exam Cellulitis of toe of right foot Hospital discharge follow-up Goiter Onychomycosis Vitamin D deficiency T2DM (type 2 diabetes mellitus) Left ankle pain B12 deficiency Left leg pain Acid reflux History of colonic polyps Chronic fatigue Carpal tunnel syndrome Daytime hypersomnia Autoimmune thyroiditis Fibromyalgia Morbid obesity Spondylosis, thoracic, 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 spine without myelopathy History of ulcer disease Sessile colonic polyp Obesity Tracee's disease halfway (current) use of insulin Diabetic nephropathy associated with type 2 diabetes mellitus Diabetic retinopathy associated with type 2 diabetes mellitus Diabetic polyneuropathy associated with type 2 diabetes mellitus Iron (Fe) deficiency anemia History of Graves' disease Lumbar degenerative disc disease Back pain Anxiety and depression GERD (gastroesophageal reflux disease) Asthma Hyperlipidemia Hypertension Diabetes mellitus Polyarthralgia Surgical History History of carpal tunnel surgery of right wrist H/O endoscopy History of cataract extraction History of lumpectomy of left breast History of carpal tunnel surgery of left wrist Hx of section Hx laparoscopic cholecystectomy Hx of esophagogastroduodenoscopy Hx of colonoscopy H/O gastric bypass Family History Father Diabetes Hypertension Mother Diabetes Hypertension Maternal Grandmother Colon cancer Paternal Aunt Cancer of ear Social History Household Members: Family Housing: House Are you a primary urgent care technician to a significant other at home: No Do you presently have visiting nurse or other home services: No Alcohol intake: never Patient Tobacco Use Status: Former Tobacco user Tobacco use type: Cigarette Cigarette Packs Per Day: 1 Years Smoked: 20 e-Cigarette/Vaping Use: Never Used Second Hand Smoke Exposure: No service: No Current occupational status: disabled Current occupation: right hand dominant Cognitive needs: No Hearing needs: No Vision needs: Yes Female Reproductive History Menstrual Age of Menarche: 14 Assessment & Plan Assessment & Plan (1) Diabetic polyneuropathy associated with type 2 diabetes mellitus: Code(s): E11.42 - Type 2 diabetes mellitus with diabetic polyneuropathy Plan: Tandem [email or web address]: [email or web address]: [email or web address] Patient presents for pump training for T slim with control IQ, and Dexcom G7 Pt transitioning back to U500 Pt glucose running above target. Reconnect Dexcom G7 to T-slim insulin pump Pt will f/u in 1 week to review settings Setting verified by [facility], New pump settings for [place] U500 Basal rate(s) (units/hour) : 12 AM? to 5 AM 2.4 units / hr 5AM to 9 AM 2.4 units / hr 9 AM? to 9 PM? 1.68 units / hr 9 PM to 12 AM 6 units / hr Bolus setting Insulin Carbohydrate Ratio (s) 12 AM? to 5 AM?1:7.5 5 AM? to 9AM ? 1:13 9AM to 9 PM 1:5 9 PM to 12 AM 1:4 Correction Factor / Sensitivity Factor 12 AM? to 5 AM?1:25 5 AM to 9 AM 1:12 9 AM to 9 PM 1:12 9 PM to 12 AM 1:15 Insulin action time: 5 hours in control IQ Coding Level of Care Code Est Pt Level 1 (15429) Diagnoses Diabetic polyneuropathy associated with type 2 diabetes mellitus E11.42
== END 2024-12-21 09:56 | disposition home or self-care (01) ==
LOC: HO.ENCR 09:47
PROVIDERS: Visit Provider Registered Nurse Diabetes Educator
DX: E11.42 Type 2 diabetes mellitus with diabetic polyneuropathy (principal)

== ENCOUNTER 2024-12-30 05:41 | Day surgery (SDC) | payer OTHER, SELFPAY ==
[2024-12-23 09:32] LABS: MANUAL DIFF FLAG NO
[2024-12-23 10:39] LABS: INTERNATIONAL NORM RATIO 1.0 (0.9-1.1); Prothrombin Time 11.2 SEC (10.9-12.4)
[2024-12-23 10:41] LABS: Hematocrit 36.0 % (37.0-47.0); Hemoglobin 11.7 g/dl (12.0-16.0); Imm Gran Abs Auto 0.02 X10*3/uL (0.00-0.03); Imm Gran Pct Auto 0.3 % (0.0-0.4); Lymphocytes Absolute Auto 1.2 X10*3/uL (1.2-4.9); Mean Corpuscular HGB Conc 32.5 g/dl (31.0-35.0); Mean Corpuscular Hemoglobin 28.5 pg (27.0-33.0); Mean Corpuscular Volume 87.8 fL (80.0-98.0); NRBC Abs Auto 0.000 X10*3/uL (0.0-0.012); NRBC Pct Auto 0.0 /100WBC (0.0-0.2); Platelet Count 277 X10*3/uL (160-400); Red Blood Count 4.10 X10*6/uL (4.20-5.50); White Blood Count 7.3 X10*3/uL (4.8-10.8)
[2024-12-23 10:42] LABS: Partial Thromboplastin Time 31.4 SEC (26.7-34.1)
[2024-12-23 11:15] LABS: Alanine Aminotransferase 23 U/L (0-31); Albumin Level 4.1 g/dL (3.5-5.0); Alkaline Phosphatase 83 U/L (39-117); Anion Gap 9 (12-20); Aspartate Amino Transferase 20 U/L (5-31); Blood Urea Nitrogen 11 mg/dL (9-16); Calcium 9.0 mg/dL (8.4-10.2); Carbon Dioxide 27 mmol/L (22-29); Chloride 104 mmol/L (96-108); Estimated Glomerular Filt Rate > 60; Potassium 3.8 mmol/L (3.3-5.1); Sodium 136 mmol/L (135-145); Total Protein 6.9 g/dL (6.5-8.0)
[2024-12-23 13:59] VITALS: BMI 25.5
--- NOTE | 2024-12-24 14:29 | HO.ANESPROP2 ---
Documented by User: Tanya Hankins NP 12/24/24 14:34 HPI - Anesthesia Eval Consult details Narrative: 49yo F for Panniculectomy, Bilateral Brachioplasty, 12/30/24 s/p gastric bypass 2016 Anesthesia Pre-Procedure Meds Is the patient on any of the following meds?: GLP1/DPP4 PMFSH Active Problems Active Problems: All Active Problems Right shoulder pain (Acute) Right elbow pain (Acute) Excess skin (Acute) Epidermal inclusion cyst (Acute) Low serum ferritin level (Acute) Myofascial pain syndrome (Acute) Allergic rhinitis (Acute) Sebaceous cyst (Acute) Spondylosis of lumbosacral region without myelopathy or radiculopathy (Acute) Carbuncle (Acute) Sleep difficulties (Acute) Restless leg syndrome (Acute) Anemia (Acute) Daytime somnolence (Acute) Microalbuminuria (Acute) Abdominal wall abscess (Acute) Gastric bypass status for obesity (Acute) Pernicious anemia (Acute) Chest pain (Acute) Essential hypertension (Acute) Moderate major depression (Acute) Hypovitaminosis D (Acute) Pain of left clavicle (Acute) Yeast infection involving the vagina and surrounding area (Acute) History of uterine fibroid (Acute) Hyponatremia (Acute) control counseling (Acute) Cervical cancer screening (Acute) Perimenopausal symptoms (Acute) History of irregular menstrual bleeding (Acute) Calcific tendonitis of left shoulder (Acute) Neck pain (Acute) Bursitis of left shoulder (Acute) Lumbar pain (Acute) Vitamin A deficiency (Acute) Thiamine deficiency (Acute) Daytime somnolence (Acute) Abnormal abdominal ultrasound (Acute) Missed menses (Acute) Left shoulder pain (Acute) Bloating (Acute) RUQ abdominal pain (Acute) Hemorrhoids (Acute) Hyperlipidemia LDL goal <70 (Acute) Left sided sciatica (Acute) Left leg pain (Acute) Microalbuminuria (Acute) Obesity (BMI 30.0-34.9) (Acute) Intestinal malabsorption following gastrectomy (Acute) Chronic diarrhea (Acute) COVID-19 (Acute) COVID-19 (Acute) Excessive daytime sleepiness (Acute) Nasal discharge (Acute) Hiatal hernia (Acute) Hemorrhoids (Acute) Schatzki's ring (Acute) Carpal tunnel syndrome of right wrist (Acute) Fibromyalgia (Acute) Postgastrectomy malabsorption (Acute) Bunion of great toe (Acute) Peripheral vascular disease of lower extremity (Acute) Uncontrolled type 2 diabetes mellitus with hyperglycemia (Acute) Iron (Fe) deficiency anemia (Acute) Physical exam (Acute) Cellulitis of toe of right foot (Acute) Hospital discharge follow-up (Acute) Goiter (Acute) Onychomycosis (Acute) Vitamin D deficiency (Acute) T2DM (type 2 diabetes mellitus) (Acute) Left ankle pain (Acute) B12 deficiency (Acute) Left leg pain (Acute) Acid reflux (Acute) History of colonic polyps (Acute) Chronic fatigue (Acute) Carpal tunnel syndrome (Acute) Daytime hypersomnia (Acute) Autoimmune thyroiditis (Acute) Fibromyalgia (Acute) Spondylosis, thoracic, without myelopathy (Acute) Spondylosis of lumbosacral spine without myelopathy (Acute) Sessile colonic polyp (Acute) Obesity (Acute) 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's 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 (Acute) 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) Diabetic nephropathy associated with type 2 diabetes mellitus (Acute) Diabetic retinopathy associated with type 2 diabetes mellitus (Acute) Diabetic polyneuropathy associated with type 2 diabetes mellitus (Acute) GERD (gastroesophageal reflux disease) (Acute) Asthma (Acute) Hyperlipidemia (Acute) Hypertension (Acute) Polyarthralgia (Acute) Past Medical History Medical History Postgastrectomy malabsorption Bunion of great toe Peripheral vascular disease of lower extremity Cellulitis Uncontrolled type 2 diabetes mellitus with hyperglycemia Physical exam Cellulitis of toe of right foot Hospital discharge follow-up Goiter Onychomycosis Vitamin D deficiency T2DM (type 2 diabetes mellitus) Left ankle pain B12 deficiency Left leg pain Acid reflux History of colonic polyps Chronic fatigue Carpal tunnel syndrome Daytime hypersomnia Autoimmune thyroiditis Fibromyalgia Morbid obesity Spondylosis, thoracic, 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 spine without myelopathy History of ulcer disease Sessile colonic polyp Obesity Tracee's disease half-way (current) use of insulin Diabetic nephropathy associated with type 2 diabetes mellitus Diabetic retinopathy associated with type 2 diabetes mellitus Diabetic polyneuropathy associated with type 2 diabetes mellitus Iron (Fe) deficiency anemia History of Graves' disease Lumbar degenerative disc disease Back pain Anxiety and depression GERD (gastroesophageal reflux disease) Asthma Hyperlipidemia Hypertension Diabetes mellitus Polyarthralgia Family History Family History Father Diabetes Hypertension Mother Diabetes Hypertension Maternal Grandmother Colon cancer Paternal Aunt Cancer of ear Family history of problems with anesthesia: No Surgical History Surgical History History of surgical procedure History of carpal tunnel surgery of right wrist H/O endoscopy History of cataract extraction History of lumpectomy of left breast History of carpal tunnel surgery of left wrist Hx of section Hx laparoscopic cholecystectomy Hx of esophagogastroduodenoscopy Hx of colonoscopy H/O gastric bypass History of Problems with Anesthesia: No Social History Social History Household Members: Family Housing: House Are you a primary patient care technician instructor to a significant other at home: No Do you presently have visiting nurse or other home services: No Alcohol intake: never Patient Tobacco Use Status: Former Tobacco user Tobacco use type: Cigarette Cigarette Packs Per Day: 1 Years Smoked: 20 e-Cigarette/Vaping Use: Never Used Second Hand Smoke Exposure: No Use of substances other than those prescribed or required for medical reasons: No Have you been hit, kicked, punched, or otherwise hurt by someone within the past year? If so, by whom?: No Are you DNR?: No Advance Directives: No Advance Directives Information Provided: Yes Advance Directives on File: No Patient : No : No service: No Current occupational status: disabled Current occupation: right hand dominant Cognitive needs: No Hearing needs: No Vision needs: Yes Meds Allergies Allergy/AdvReac Type Severity Reaction Status Date / Time adhesive tape (ADHESIVE TAPE) Allergy Intermediate RASH Verified 12/30/24 06:12 pioglitazone (From ACTOS) Allergy Intermediate facial Verified 12/30/24 06:12 edema,rash latex Allergy Mild Rash Verified 12/30/24 06:12 Home Medications ?Medication ?Instructions ?Recorded ?Confirmed ?Last Taken ?Type citalopram 10 mg tablet 10 mg PO DAILY 08/28/22 12/30/24 Unknown History escitalopram oxalate 10 mg tablet 10 mg PO DAILY 11/15/24 12/30/24 Unknown History trazodone 50 mg tablet 25 - 50 mg PO BEDTIME PRN insomnia 11/15/24 12/30/24 Unknown History lisinopril 10 mg tablet 10 mg PO DAILY 12/21/24 12/30/24 Unknown History insulin degludec 200 unit/mL (3 70 unit subcut BEDTIME 12/23/24 12/30/24 Unknown History mL) subcutaneous pen (Tresiba FlexTouch U-200 insulin) Exam Height,Weight and Vital Signs: Height 5 ft 9 in Weight 78.471 kg Pertinent Lab Results Pertinent Lab Results: Laboratory Tests 12/23/24 09:30 WBC 7.3 RBC 4.10 L Hgb 11.7 L Hct 36.0 L MCV 87.8 MCH 28.5 MCHC 32.5 RDW 12.7 Plt Count 277 MPV 10.1 Immature Gran % (Auto) 0.3 Neut % (Auto) 76.4 H Lymph % (Auto) 16.1 L Wallace % (Auto) 6.1 Eos % (Auto) 0.7 Baso % (Auto) 0.4 Lymph # (Auto) 1.2 Wallace # (Auto) 0.4 Eos # (Auto) 0.1 Baso # (Auto) 0.0 Abs Immat Gran (auto) 0.02 Absolute Neuts (auto) 5.6 Absolute Nucleated RBC 0.000 Nucleated RBC % (auto) 0.0 PT 11.2 INR 1.0 APTT 31.4 Sodium 136 Potassium 3.8 Chloride 104 Carbon Dioxide 27 Anion Gap 9 L BUN 11 Creatinine 0.58 Estim Creat Clear Calc TNP Estimated GFR > 60 Random Glucose 246 H Calcium 9.0 D Total Bilirubin 0.5 AST 20 ALT 23 Alkaline Phosphatase 83 Total Protein 6.9 Albumin 4.1 Narrative Narrative: EKG 2023 Vent. Rate : 070 BPM Atrial Rate : 070 BPM P-R Int : 164 ms QRS Dur : 090 ms QT Int : 392 ms P-R-T Axes : 054 061 042 degrees QTc Int : 423 ms Normal sinus rhythm with sinus arrhythmia Normal ECG When compared with ECG of 22-JAN-2023 10:30, No significant change was found Assessment and Plan Assessment Anesthesia Assessment: Chart Reviewed Final Anesthetic Review Family History of Problems with Anesthesia: No History of Problems with Anesthesia: No Documented by User: Courtney Merida MD 12/30/24 07:52 [facility] Past Medical History Medical History Postgastrectomy malabsorption Bunion of great toe Peripheral vascular disease of lower extremity Cellulitis Uncontrolled type 2 diabetes mellitus with hyperglycemia Physical exam Cellulitis of toe of right foot Hospital discharge follow-up Goiter Onychomycosis Vitamin D deficiency T2DM (type 2 diabetes mellitus) Left ankle pain B12 deficiency Left leg pain Acid reflux History of colonic polyps Chronic fatigue Carpal tunnel syndrome Daytime hypersomnia Autoimmune thyroiditis Fibromyalgia Morbid obesity Spondylosis, thoracic, 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 spine without myelopathy History of ulcer disease Sessile colonic polyp Obesity 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 Diabetic nephropathy associated with type 2 diabetes mellitus Diabetic retinopathy associated with type 2 diabetes mellitus Diabetic polyneuropathy associated with type 2 diabetes mellitus Iron (Fe) deficiency anemia History of Graves' disease Lumbar degenerative disc disease Back pain Anxiety and depression GERD (gastroesophageal reflux disease) Asthma Hyperlipidemia Hypertension Diabetes mellitus Polyarthralgia Family History Family History Father Diabetes Hypertension Mother Diabetes Hypertension Maternal Grandmother Colon cancer Paternal Aunt Cancer of ear Surgical History Surgical History History of surgical procedure History of carpal tunnel surgery of right wrist H/O endoscopy History of cataract extraction History of lumpectomy of left breast History of carpal tunnel surgery of left wrist Hx of section Hx laparoscopic cholecystectomy Hx of esophagogastroduodenoscopy Hx of colonoscopy H/O gastric bypass Social History Social History Household Members: Family Housing: House Are you a primary patient care technician instructor to a significant other at home: No Do you presently have visiting nurse or other home services: No Alcohol intake: never Patient Tobacco Use Status: Former Tobacco user Tobacco use type: Cigarette Cigarette Packs Per Day: 1 Years Smoked: 20 e-Cigarette/Vaping Use: Never Used Second Hand Smoke Exposure: No Use of substances other than those prescribed or required for medical reasons: No Have you been hit, kicked, punched, or otherwise hurt by someone within the past year? If so, by whom?: No Are you DNR?: No Advance Directives: No Advance Directives Information Provided: Yes Advance Directives on File: No Patient : No : No service: No Current occupational status: disabled Current occupation: right hand dominant Cognitive needs: No Hearing needs: No Vision needs: Yes Meds Allergies Allergy/AdvReac Type Severity Reaction Status Date / Time adhesive tape (ADHESIVE TAPE) Allergy Intermediate RASH Verified 12/30/24 06:12 pioglitazone (From ACTOS) Allergy Intermediate facial Verified 12/30/24 06:12 edema,rash latex Allergy Mild Rash Verified 12/30/24 06:12 Home Medications ?Medication ?Instructions ?Recorded ?Confirmed ?Last Taken ?Type citalopram 10 mg tablet 10 mg PO DAILY 08/28/22 12/30/24 Unknown History escitalopram oxalate 10 mg tablet 10 mg PO DAILY 11/15/24 12/30/24 Unknown History trazodone 50 mg tablet 25 - 50 mg PO BEDTIME PRN insomnia 11/15/24 12/30/24 Unknown History lisinopril 10 mg tablet 10 mg PO DAILY 12/21/24 12/30/24 Unknown History insulin degludec 200 unit/mL (3 70 unit subcut BEDTIME 12/23/24 12/30/24 Unknown History mL) subcutaneous pen (Tresiba FlexTouch U-200 insulin) Exam Airway Mallampati Class: II TM Dist: >3cm Neck ROM: Full Loose/Missing/Broken Teeth: Yes and Lower Heart: RRR Lungs: CTA Assessment and Plan Assessment Anesthesia Assessment: Anesthesia Plan Discussed Final Anesthetic Review NPO: Yes ASA Class: II Final Preanesthetic Review: Meds/Allgs Chart Reviewed, Consent Obtained/Reviewed and Anes Risks/Benef Reviewed Patient Risk: Low Procedure Risk: Low Anesthetic Plan Anesthetic Plan: MAC: Disposition: Standard PACU
[2024-12-30] VITALS (11 sets, daily range): BP systolic 112–134; BP diastolic 47–70; PULSE 80–108; RESP 13–18; TEMP 36.4–36.9; O2SAT 98–100; BMI 24.1
[2024-12-30] MEDS: Lactated Ringers 1,000 ML 100 ML IVCONT (06:32)
[2024-12-30 06:35] LABS: UPreg QC Valid YES
[2024-12-30 06:39] LABS: Glucose, Whole Blood 181 mg/dL (60-115)
[2024-12-30] MEDS: Aprepitant 32 MG/4.4 ML VIAL IVPUSH (06:43)
--- NOTE | 2024-12-30 07:51 | P.F2F_ITS ---
Service Date Service Date: 12/30/24 Encounter Date of encounter: 12/30/24 Reasons for Services Signs and symptoms assessed: s/p panniculectomy and bilateral brachioplasty Reason for senior care: wound care Homebound: Leaving the home is medically contraindicated at this time without the asist of a device and/or another person due th the listed conditions above and below. Reason homebound: unable to drive Certification: Based on the above findings, I certify that this patient is confined to the home and needs intermittent senior care care, physical therapy and/or speech therapy, or continues to need occupational therapy. The patient is under my care, and I have initiated the establishment of the plan of care. The patient will be followed by a physician who will periodically review the plan of care. Time Spent With Patient Time: Total time managing care of this patient today __30__ minutes.
--- NOTE | 2024-12-30 07:55 | MHC.SHP ---
Pre-Procedural Eval Section A - 24 Hr Update-Section A only Date of Service: 12/30/24 The patient is an INPATIENT: No The patient has been examined within 24 hours of the surgical procedure. The History & Physical has been completed within 30 days and I have reviewed it.: Yes Section B - Complete if H&P > 30 days Chief Complaint: Excessive and redundant skin and subcut tissue Relevant Family History (Specify if Yes): No Relevant Social History: None Present Medications: None Medical History: No relevant PMH History of Previous Operations: Relevant previous surgery/procedure and date(s) (laparoscopic gastric bypass) Allergies: Allergies Allergy/AdvReac Type Severity Reaction Status Date / Time adhesive tape (ADHESIVE TAPE) Allergy Intermediate RASH Verified 12/30/24 06:12 pioglitazone (From ACTOS) Allergy Intermediate facial Verified 12/30/24 06:12 edema,rash latex Allergy Mild Rash Verified 12/30/24 06:12 Review of Systems Sugical H&P ROS: Negative: Constitution, Cardiovascular, Respiratory, Neurological, Psychiatric, Hem-Onc, Allergic/Immunologic, Gastrointestinal, Genitourinary, Musculoskeletal, Integumentary, Endocrine and Eyes/Ears/Nose/Throat Exam Surgical H&P Exam: Normal: HEENT, Normal: Heart, Normal: Lungs, Normal: Extremities, Normal: Abdomen, Normal: Skin and Normal: Neurological Plan Diagnosis/Plan: Unchanged I have reviewed the history and physical and performed a pertinent physical examination on my patient. No changes have occurred unless specified. Time Spent With Patient Time: Total time managing care of this patient today ____ minutes.
--- NOTE | 2024-12-30 07:56 | P.BOP_ITS ---
Brief Operative Note Date of Service: 12/30/24 Pre-op diagnosis: Excess skin Post-op diagnosis: same Procedure: PROCEDURE: Panniculectomy with umbilical transposition and bilateral subcutaneous fat flaps, bilateral brachioplasty INDICATION: This a 49 year old female who underwent laparoscopic sleeve gastrectomy on 07/20/2015. She had an excellent result achieving a BMI of 24.3 kg/m2 with a total weight loss of 112.4lbs, or 40.7% of her TBWL. As a result, she has developed panniculitis which has not resolved despite continuous use of clotrimazole ointment as well as skin irritation and intetrigo in both upper arms. On exam she has extreme skin laxity due to massive weight loss and age with the abdominal pannus completely hiding the genitalia and the upper arms 6 cm below the level of the triceps. Panniculectomy with bilateral brachioplasty was recommended. We discussed the two options for the panniculectomy of using a combined vertical and horizontal incisions or just a horizontal (bikini) incision. It was my recommendation to do only horizontal incision based on her body habitus and skin laxity. The patient agreed with this. Risks and complications were discussed with the patient including bleeding, infection, umbilical loss, flap necrosis, asymmetry, dehiscence, seroma, VTE. The patient understood the risks and was in agreement to proceed with surgery. PROCEDURE: The incisions were appropriately marked at the preop area with the patient standing and laying down. After induction of general anesthesia a Arrieta catheter and pneumatic compression devices were placed. The patient was prepped and draped in the usual sterile manner and the incisions were marked again and confirmed. In similar fashion both upper arms were also marked when the patient was standing. The upper arms were performed first. The skin was infiltrated with lidocaine and epinephrine. Skin was excised with the #15 blade. Cautery was used to separate the skin from subcutaneous tissues. Careful attention was paid to make sure that the plain of excision was superficial as close to the skin as possible. The right upper arm skin was 28 cm x 9 cm and the left 27 cm x 8 cm. Skin was closed in two layers using interrupted 3.0 Monocryl sutures for the dermis and 4.0 subcuticular Monocryl suture for the skin. The skin was infiltrated with lidocaine and epinephrine. The #10 blade scalpel was used for the large incisions and the #15 blade scalpel for the umbilicus. Cautery was used to divide the subcutaneous tissues until the fascia was identified. Then I used the cautery to separate the pannus from the fascia. The inferior incision was made initially and I mobilized the flap for a several centimeters cephalad to the umbilicus. The umbilicus was incised circumferentially and detached from the surrounding tissues all the way to the fascia while its stalk was preserved. With the patient in reflex position I confirmed that the skin flaps were appropriate and would allow for the tissues to come together with reasonable tension. At that point a horizontal incision was made 4 cm above the umbilicus. #10 blade was used for the skin, cautery for the dermis and for the remaining tissues. A subcutaneous fat flap was raised from the upper skin flap in order to fill the space under the skin and support the closure of the two flaps. In addition the inferior flap was mobilized caudally for a few centimeters to create a space for the subcutaneous fat flap as well as relieve tension from the closure. A circumferential incision was made at the area where the umbilicus would be re-implanted. The umbilicus was appropriately oriented and was delivered through the defect and was secured in place with a Joann. No bleeding was noted anywhere. One JEAN CLAUDE drain was placed from the left corner of the horizontal incision across the wound and was secured in place with a silk suture. The subcutaneous fat flap was secured under the inferior flap with several interrupted 3.0 Monocryl sutures. The two flaps were brought together and were attached at the midline of the horizontal incision with a #3.0 Monocryl suture. At that point the umbilicus was properly oriented and was re-approximated to the skin with 8 interrupted 3.0 Monocryl sutures. In a similar fashion the skin flaps were re-approximated with multiple 3.0 Monocryl sutures. The skin was closed in all incisions and umbilicus with 4.0 Monocryl sutures. Steri-strips, xeroform gauzes and gauzes were used to cover the incisions. An abdominal binder was also placed. The was awaken and was transferred to the recover room in a stable condition. I was present and performed the entire procedure. Ms. Bell was the geriatric nursing assistant. Vinh Sanders MD, PhD, FACS Surgeon: Vishal Sanders MD Surgeon: Vishal Sanders MD Anesthesia: GETA and local Was an Tabulating Supervisor used for this Procedure?: No Estimated blood loss (mL): 10 IV fluids (mL): 2,000 Urine output (mL): 0 (No Arrieta to record output) Pathology: other (1) Left upper arm, 2) Right upper arm, 3) abdominal pannus) Condition: stable Disposition: PACU
[2024-12-30 13:46] LABS: Glucose, Whole Blood 174 mg/dL (60-115)
== END 2024-12-30 16:10 | disposition home or self-care (01) ==
PROVIDERS: Nurse Practitioner; Visit Provider Surgery
PROC: 0JB80ZZ Excision of Abdomen Subcutaneous Tissue and Fascia, Open Approach (ICD-10-PCS; CPT 15830; principal; 2024-12-30 07:30)
PROC: (CPT 15836; 2024-12-30 07:30)
DX: L98.7 Excessive and redundant skin and subcutaneous tissue (principal); M79.3 Panniculitis, unspecified; E65 Localized adiposity; L30.4 Erythema intertrigo; K91.2 Postsurgical malabsorption, not elsewhere classified; K21.9 Gastro-esophageal reflux disease without esophagitis; I70.209 Unspecified atherosclerosis of native arteries of extremities, unspecified extremity; I10 Essential (primary) hypertension; E78.5 Hyperlipidemia, unspecified; E06.3 Autoimmune thyroiditis; E04.9 Nontoxic goiter, unspecified; M79.7 Fibromyalgia; D50.9 Iron deficiency anemia, unspecified; E53.8 Deficiency of other specified B group vitamins; E55.9 Vitamin D deficiency, unspecified; R53.82 Chronic fatigue, unspecified; M51.369 Other intervertebral disc degeneration, lumbar region without mention of lumbar back pain or lower extremity pain; E11.65 Type 2 diabetes mellitus with hyperglycemia; E11.42 Type 2 diabetes mellitus with diabetic polyneuropathy; E11.319 Type 2 diabetes mellitus with unspecified diabetic retinopathy without macular edema; F41.8 Other specified anxiety disorders; Z79.4 Long term (current) use of insulin; Z79.85 Long-term (current) use of injectable non-insulin antidiabetic drugs; Z79.899 Other long term (current) drug therapy; Z91.040 Latex allergy status; L23.1 Allergic contact dermatitis due to adhesives; Z88.8 Allergy status to other drugs, medicaments and biological substances; Z87.891 Personal history of nicotine dependence
CPT/HCPCS: 15830; 15847; 15836; 36415; 80053; 81025; 82947; 85025; 85610; 85730; 86850; 86900; 86901; 88304; J0131; J0690; J1171; J2003; J2004; J2250; J2405; J2704; J3010; J3374

== ENCOUNTER → 2024-12-30 05:41 | Outpatient (BNV) | payer OTHER, SELFPAY | PROVIDERS: Visit Provider Physician Assistant Surgical | DX: M79.3 Panniculitis, unspecified (principal); L98.7 Excessive and redundant skin and subcutaneous tissue | CPT/HCPCS: 15830; 15836; G0180 ==

== ENCOUNTER 2025-01-06 14:41 | Outpatient (AMB) | payer OTHER, SELFPAY ==
[2025-01-06 15:03] VITALS: BP 145/70; PULSE 76; TEMP 36.7; O2SAT 100
--- NOTE | 2025-01-06 15:03 | A.OFFVIS_ITS ---
VS Expanded 01/06/25 15:03 BP 145/70 H Blood Pressure Location Rt brachial Blood Pressure Position Sitting Pulse 76 Pulse Source Pulse Oximeter Temp 98.1 F Temperature Source Temporal Artery Scan Pulse Oximetry 100 Oxygen Delivery Method Room Air Intake Visit Reasons: OV PO Panni + Brachio 12/30/24 Allergies adhesive tape (ADHESIVE TAPE) Allergy (Intermediate, Verified 01/06/25 15:05) RASH pioglitazone (From ACTOS) Allergy (Intermediate, Verified 01/06/25 15:05) facial edema,rash latex Allergy (Mild, Verified 01/06/25 15:05) Rash Medication List - Last Reconciled 01/06/25 by TAHMINA Anne acetone (urine) test (Ketone Urine Test strips) As directed glucose over 300, illness, nausea, vomiting t.i.d. blood pressure kit-extra large As directed blood sugar diagnostic (FreeStyle Lite Strips) TEST 4 TIMES DAILY blood-glucose meter (FreeStyle Lite Meter kit) TEST 4 TIMES DAILY cane As directed cephalexin 500 mg PO Q12H cholecalciferol (vitamin D3) 50 mcg PO DAILY 90 days citalopram 10 mg PO DAILY cyanocobalamin (vitamin B-12) 1,000 mcg sublingual DAILY docusate sodium (Colace) 100 mg PO DAILY ergocalciferol (vitamin D2) 1,250 mcg PO QWEEK 90 days escitalopram oxalate 10 mg PO DAILY folic acid 1 mg PO DAILY furosemide 20 mg PO BID 90 days glucagon 3 mg/actuation (Baqsimi) 3 mg intranasal .prn PRN 30 days MDD 6 mg insulin degludec (Tresiba FlexTouch U-200 insulin) 70 units subcut BEDTIME insulin regular hum U-500 conc (Humulin R U-500 (Concentrated) Insulin) up to 425 units per day via pump subcutaneously use as directed insulin syringe-needle U-100 (Advocate Syringes) Use 1 needle once a month lidocaine 5% (Lidoderm) 1 patch topical DAILY PRN MDD remove after 12 hours lisinopril 10 mg PO DAILY montelukast 10 mg PO DAILY 90 days naloxone 4 mg/actuation (Narcan) 4 mg intranasal Q2M PRN 30 days nebulizers (AeroEclipse II Nebulizer) As directed ondansetron 4 mg PO Q12H oxycodone-acetaminophen 5-325 mg 1 tab PO Q8H PRN 30 days pantoprazole 40 mg PO DAILY 30 days pen needle, diabetic As directed qid prn pump failure pen needle, diabetic (Comfort EZ Pen [place]) As directed once daily, prn pump failure can increase to qid pen needle, diabetic (Comfort EZ Pen [place]) As directed daily: In the event a pump failure use up to q.i.d. rosuvastatin 40 mg PO DAILY 90 days Shower Chair As directed [skin tac apply to skin at pump site and sensor site after cleansing with alcohol.Insert pump cannula/sensor after skin tac has allowed to dry. Use on pump every three days, every 10 at sensor site.] syringe with needle (Youtuoer Slip Syringe-Needle) For vitamin B12 injection syringe with needle, safety (BD Safety-Jone Detachable Needle) Use 1 syringe once a month tirzepatide (Mounjaro) 15 mg (0.5 mL) subcut QWEEK 28 days trazodone 25 - 50 mg PO BEDTIME PRN HPI Comments Details: Pt is 1w s/p panniculectomy and bilateral brachioplasty 12/30/2024. No fevers at home. Taking abx. Wearing binder at all times. Following meal plan although she notes she is drinking more than 8oz per day of homemade broth. [facility], [facility] Medical History Postgastrectomy malabsorption Bunion of great toe Peripheral vascular disease of lower extremity Cellulitis Uncontrolled type 2 diabetes mellitus with hyperglycemia Physical exam Cellulitis of toe of right foot Hospital discharge follow-up Goiter Onychomycosis Vitamin D deficiency T2DM (type 2 diabetes mellitus) Left ankle pain B12 deficiency Left leg pain Acid reflux History of colonic polyps Chronic fatigue Carpal tunnel syndrome Daytime hypersomnia Autoimmune thyroiditis Fibromyalgia Morbid obesity Spondylosis, thoracic, 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 spine without myelopathy History of ulcer disease Sessile colonic polyp Obesity Tracee's disease 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 Diabetic nephropathy associated with type 2 diabetes mellitus Diabetic retinopathy associated with type 2 diabetes mellitus Diabetic polyneuropathy associated with type 2 diabetes mellitus Iron (Fe) deficiency anemia History of Graves' disease Lumbar degenerative disc disease Back pain Anxiety and depression GERD (gastroesophageal reflux disease) Asthma Hyperlipidemia Hypertension Diabetes mellitus Polyarthralgia Surgical History (Updated 01/06/25 @ 16:36 by TAHMINA Anne) S/P brachioplasty S/P panniculectomy History of surgical procedure History of carpal tunnel surgery of right wrist H/O endoscopy History of cataract extraction History of lumpectomy of left breast History of carpal tunnel surgery of left wrist Hx of section Hx laparoscopic cholecystectomy Hx of esophagogastroduodenoscopy Hx of colonoscopy H/O gastric bypass Family History Father Diabetes Hypertension Mother Diabetes Hypertension Maternal Grandmother Colon cancer Paternal Aunt Cancer of ear Social History Household Members: Family Housing: House Are you a primary manager critical care unit to a significant other at home: No Do you presently have visiting nurse or other home services: No Alcohol intake: never Patient Tobacco Use Status: Former Tobacco user Tobacco use type: Cigarette Cigarette Packs Per Day: 1 Years Smoked: 20 e-Cigarette/Vaping Use: Never Used Second Hand Smoke Exposure: No service: No Current occupational status: disabled Current occupation: right hand dominant Cognitive needs: No Hearing needs: No Vision needs: Yes Female Reproductive History Menstrual Age of Menarche: 14 Physical Exam Vital Signs: Last Vital Signs Temp 98.1 F 01/06/25 15:03 Pulse 76 01/06/25 15:03 BP 145/70 H 01/06/25 15:03 Pulse Ox 100 01/06/25 15:03 Oxygen Delivery Method Room Air 01/06/25 15:03 Const General: cooperative, comfortable and no acute distress Orientation/consciousness: patient oriented x3 GI Other: soft, nontender, abdomen does appear stringer but is soft, no erythema, drain output SS, all incisions c/d/i Neuro General: patient oriented x3 Assessment & Plan Assessment & Plan (1) S/P panniculectomy: Code(s): Z98.890 - Other specified postprocedural states Category: Medical Plan Continue high protein diet. ABX keflex 500 BID x 2 weeks, extended as needed?(at least until drain comes out plus 1 week).? Drain out after consistently 20 mL or less daily.? Abdominal binder at all times except for care x 1 month?MINIMUM. If there are concerns longer.? No driving?until drain out.? No walking outside or exercise for 6 weeks minimum. Walking in the house after 1st appt if we are satisfied with progress. Assistance getting up for 4 weeks minimum.?No lifting greater than?10 pounds x 2 months and no abdominal exercises x 3 months. Will continue to monitor abdomen and ensure no increase in size/swelling. Discussed no more than 8oz soup, even homemade for now.
--- OUTSIDE RECORDS SUMMARY | 2025-01-06 18:01 | XMS_ITS | Clinical Summary ---
Author Organization [facility] Facility Address [address] [place] [id number] Care Team Providers Care Key Account Representative Name Role Phone Analilia Chaidez MD Primary Care Provider [phone] Allergies Active Allergy Reactions Criticality Noted Date [...] Years Used Date Smoking Tobacco: Former Cigarettes 18 0 02/24/1995 - 02/24/2013 Alcohol Use Standard [...] this topic Insurance Medicaid Medicaid Care Teams Key Account Representative Relationship Specialty Start Date End Date Analilia Chaidez MD [address] [place], [place] PCP - General 03/06/20
--- OUTSIDE RECORDS SUMMARY | 2025-01-06 18:01 | XMS_ITS | Clinical Summary ---
Author Organization [address] [facility] Address [address] [place] [address] Phone Care Team Providers Care Physiotherapist'S Assistant Name Role Phone Analilia Schumacher MD Primary Care Provider [phone] Allergies No known active allergies Medications acetaminophen [...] Uncontrolled type 2 diabetes mellitus with hyperglycemia ([facility], [facility] V28) 10/07/2024 Onychomycosis 10/07/2024 Vitamin D deficiency 10/07/2024 Type 2 diabetes mellitus ([facility] [place]24, [facility] V 28) 10/07/2024 Left ankle pain 10/07/2024 B12 deficiency 10/07/2024 Left leg pain 10/07/2024 Acid reflux 10/07/2024 History of colonic polyps 10/07/2024 Chronic fatigue 10/07/2024 Carpal tunnel syndrome 10/07/2024 Daytime hypersomnia 10/07/2024 Autoimmune thyroiditis 10/07/2024 Fibromyalgia 10/07/2024 Morbid obesity ([facility] [place]24, [facility] V28) 2024 Spondylosis 10/07/2024 History of ulcer disease 10/07/2024 Sessile colonic polyp 10/07/2024 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 ([facility] V24, [facility] V28) 10/07/2024 Encounters Date Type Department Care Team Description 10/07/2024 9:30 AM EDT Consult Orthopedic Surgery - [address] [address] Kali Artis, DPM Dermatophytosis of nail (Primary Dx); Bunion of unspecified foot; Pain in toe of left foot; Pain in toe of right foot; Diabetic mononeuropathy simplex ([facility] [place]24, [facility] V28); Type II diabetes mellitus with peripheral circulatory disorder ([facility]24, [facility] V28); Corns and callosities; Metatarsalgia of both [...] AM EST Office Visit Orthopedic Surgery - [place] [address] [address] Kali Atris, DPM [address] [address] Health Maintenance Due Date Last [...] Diabetes: Blood Sugar Control Test (HGBA1C) 10/07/2024 COVID-19 Vaccine ( season) 2024 12/23/2023, 02/12/2023, 11/22/2021, Additional history exists Influenza Vaccine (#1) 2024 , 11/28/2022, 11/22/2021, [...] (6 to 49 Years) Completed 09/10/2022, 07/21/2015 HIB Vaccines Aged Out No longer eligi [...] to calcaneal cuboid joint us Kali Artis DPReyna IMG XR PROCEDURES Final R esult from Last 3 Months Insurance MEDICA[place] - [place] [facility] Care Teams Physiotherapist'S Assistant Relationship Specialty Start Date End Date Analilia Schumacher MD [address] [facility] , [address] [facility] [place], [place] PCP - General Internal Medicine 12/22/17
== END 2025-01-06 15:46 | disposition home or self-care (01) ==
LOC: HO.HBS 14:42
PROVIDERS: PCP Internal Medicine; Visit Provider Physician Assistant Surgical
DX: Z71.3 Dietary counseling and surveillance (principal); Z98.890 Other specified postprocedural states
CPT/HCPCS: 99024

== ENCOUNTER → 2025-01-06 14:41 | Outpatient (BNVA) | payer OTHER, SELFPAY | PROVIDERS: PCP Internal Medicine; Visit Provider Physician Assistant Surgical | DX: K90.49 Malabsorption due to intolerance, not elsewhere classified (principal); Z98.890 Other specified postprocedural states | CPT/HCPCS: 99212 ==

== ENCOUNTER 2025-01-12 14:51 | Outpatient (AMB) | payer OTHER, SELFPAY ==
--- NOTE | 2025-01-12 15:17 | MHC.OFFVISWM ---
VS Expanded 01/12/25 15:18 BP 188/83 H Blood Pressure Location Rt brachial Blood Pressure Position Sitting Pulse 62 Pulse Source Pulse Oximeter Temp 98.2 F Temperature Source Temporal Artery Scan Pulse Oximetry 100 Oxygen Delivery Method Room Air Intake Visit Reasons: OV PO Panni + Brachio 12/30/24 Type Bar And Segment Assembler Name: [id number] Contreras Khan Allergies adhesive tape (ADHESIVE TAPE) Allergy (Intermediate, Verified 01/12/25 15:20) RASH pioglitazone (From ACTOS) Allergy (Intermediate, Verified 01/12/25 15:20) facial edema,rash latex Allergy (Mild, Verified 01/12/25 15:20) Rash Medication List - Last Reconciled 01/12/25 by TAHMINA Anne acetone (urine) test (Ketone Urine Test strips) As directed glucose over 300, illness, nausea, vomiting t.i.d. blood pressure kit-extra large As directed blood sugar diagnostic (FreeStyle Lite Strips) TEST 4 TIMES DAILY blood-glucose meter (FreeStyle Lite Meter kit) TEST 4 TIMES DAILY cane As directed cephalexin 500 mg PO Q12H cholecalciferol (vitamin D3) 50 mcg PO DAILY 90 days citalopram 10 mg PO DAILY cyanocobalamin (vitamin B-12) 1,000 mcg sublingual DAILY docusate sodium (Colace) 100 mg PO DAILY ergocalciferol (vitamin D2) 1,250 mcg PO QWEEK 90 days escitalopram oxalate 10 mg PO DAILY folic acid 1 mg PO DAILY furosemide 20 mg PO BID 90 days glucagon 3 mg/actuation (Baqsimi) 3 mg intranasal .prn PRN 30 days MDD 6 mg insulin degludec (Tresiba FlexTouch U-200 insulin) 70 units subcut BEDTIME insulin regular hum U-500 conc (Humulin R U-500 (Concentrated) Insulin) up to 425 units per day via pump subcutaneously use as directed insulin syringe-needle U-100 (Advocate Syringes) Use 1 needle once a month lidocaine 5% (Lidoderm) 1 patch topical DAILY PRN MDD remove after 12 hours lisinopril 10 mg PO DAILY montelukast 10 mg PO DAILY 90 days naloxone 4 mg/actuation (Narcan) 4 mg intranasal Q2M PRN 30 days nebulizers (AeroEclipse II Nebulizer) As directed ondansetron 4 mg PO Q12H oxycodone-acetaminophen 5-325 mg 1 tab PO Q8H PRN 30 days pantoprazole 40 mg PO DAILY 30 days pen needle, diabetic As directed qid prn pump failure pen needle, diabetic (Comfort EZ Pen [place]) As directed once daily, prn pump failure can increase to qid pen needle, diabetic (Comfort EZ Pen [place]) As directed daily: In the event a pump failure use up to q.i.d. rosuvastatin 40 mg PO DAILY 90 days Shower Chair As directed [skin tac apply to skin at pump site and sensor site after cleansing with alcohol.Insert pump cannula/sensor after skin tac has allowed to dry. Use on pump every three days, every 10 at sensor site.] syringe with needle (Extreme Wireless Communicationer Slip Syringe-Needle) For vitamin B12 injection syringe with needle, safety (BD Safety-Jone Detachable Needle) Use 1 syringe once a month tirzepatide (Mounjaro) 15 mg (0.5 mL) subcut QWEEK 28 days trazodone 25 - 50 mg PO BEDTIME PRN HPI Comments Details: Pt is 3w s/p panniculectomy and bilateral brachioplasty 12/30/2024. No fevers at home. Taking abx. Wearing binder at all times. Following meal plan and she has decreased her intake of broth so she feels less swollen this week. [facility] Medical History Postgastrectomy malabsorption Bunion of great toe Peripheral vascular disease of lower extremity Cellulitis Uncontrolled type 2 diabetes mellitus with hyperglycemia Physical exam Cellulitis of toe of right foot Hospital discharge follow-up Goiter Onychomycosis Vitamin D deficiency T2DM (type 2 diabetes mellitus) Left ankle pain B12 deficiency Left leg pain Acid reflux History of colonic polyps Chronic fatigue Carpal tunnel syndrome Daytime hypersomnia Autoimmune thyroiditis Fibromyalgia Morbid obesity Spondylosis, thoracic, 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 spine without myelopathy History of ulcer disease Sessile colonic polyp Obesity 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 Diabetic nephropathy associated with type 2 diabetes mellitus Diabetic retinopathy associated with type 2 diabetes mellitus Diabetic polyneuropathy associated with type 2 diabetes mellitus Iron (Fe) deficiency anemia History of Graves' disease Lumbar degenerative disc disease Back pain Anxiety and depression GERD (gastroesophageal reflux disease) Asthma Hyperlipidemia Hypertension Diabetes mellitus Polyarthralgia Surgical History (Updated 01/12/25 @ 15:23 by TAHMINA Anne) S/P brachioplasty S/P panniculectomy History of surgical procedure History of carpal tunnel surgery of right wrist H/O endoscopy History of cataract extraction History of lumpectomy of left breast History of carpal tunnel surgery of left wrist Hx of section Hx laparoscopic cholecystectomy Hx of esophagogastroduodenoscopy Hx of colonoscopy H/O gastric bypass Family History Father Diabetes Hypertension Mother Diabetes Hypertension Maternal Grandmother Colon cancer Paternal Aunt Cancer of ear Social History Household Members: Family Housing: House Are you a primary auto care center manager to a significant other at home: No Do you presently have visiting nurse or other home services: No Alcohol intake: never Patient Tobacco Use Status: Former Tobacco user Tobacco use type: Cigarette Cigarette Packs Per Day: 1 Years Smoked: 20 e-Cigarette/Vaping Use: Never Used Second Hand Smoke Exposure: No service: No Current occupational status: disabled Current occupation: right hand dominant Cognitive needs: No Hearing needs: No Vision needs: Yes Female Reproductive History Menstrual Age of Menarche: 14 Physical Exam Const General: cooperative, comfortable and no acute distress Orientation/consciousness: patient oriented x3 GI Other: soft, nontender, panniculectomy incision healing well with SS drain output, umbilicus viable, no open areas Neuro General: patient oriented x3 Assessment & Plan Assessment & Plan (1) S/P panniculectomy: Code(s): Z98.890 - Other specified postprocedural states Category: Surgical (2) S/P brachioplasty: Code(s): Z98.890 - Other specified postprocedural states Category: Surgical Plan Continue high protein diet. ABX keflex 500 BID x 2 weeks, extended as needed?(at least until drain comes out plus 1 week).? Drain out after consistently 20 mL or less daily.? Abdominal binder at all times except for care x 1 month?MINIMUM. If there are concerns longer.? No driving?until drain out.? No walking outside or exercise for 6 weeks minimum. Walking in the house ok. Assistance getting up for 4 weeks minimum.?No lifting greater than?10 pounds x 2 months and no abdominal exercises x 3 months.
[2025-01-12 15:18] VITALS: BP 188/83; PULSE 62; TEMP 36.8; O2SAT 100
--- OUTSIDE RECORDS SUMMARY | 2025-01-13 03:25 | XMS_ITS | Clinical Summary ---
Author Organization [facility] Facility Address [address] [place] [id number] Care Team Providers Care Drilling Superintendent Name Role Phone Analilia Chaidez MD Primary Care Provider [phone] Allergies Active Allergy Reactions Criticality Noted Date [...] this topic Insurance Medicaid Medicaid Care Teams Drilling Superintendent Relationship Specialty Start Date End Date Analilia Chaidez MD [address] [place], [place] PCP - General 03/06/20
== END 2025-01-12 16:21 | disposition home or self-care (01) ==
LOC: HO.HBS 14:52
PROVIDERS: PCP Internal Medicine; Visit Provider Physician Assistant Surgical
DX: Z71.3 Dietary counseling and surveillance (principal); Z98.890 Other specified postprocedural states
CPT/HCPCS: 99024

== ENCOUNTER → 2025-01-12 14:51 | Outpatient (BNVA) | payer OTHER, SELFPAY | PROVIDERS: PCP Internal Medicine; Visit Provider Physician Assistant Surgical | DX: Z48.817 Encounter for surgical aftercare following surgery on the skin and subcutaneous tissue (principal) | CPT/HCPCS: 99212 ==

== ENCOUNTER 2025-01-19 08:45 | Outpatient (AMB) | payer OTHER, SELFPAY ==
[2025-01-19 09:03] VITALS: BP 148/67; PULSE 73; TEMP 36.3; O2SAT 100
--- NOTE | 2025-01-19 09:05 | A.OFFVIS_ITS ---
VS Expanded 01/19/25 09:03 BP 148/67 H Blood Pressure Location Rt brachial Blood Pressure Position Sitting Pulse 73 Pulse Source Pulse Oximeter Temp 97.3 F Temperature Source Temporal Artery Scan Pulse Oximetry 100 Oxygen Delivery Method Room Air Intake Visit Reasons: OV PO Panni + Brachio 12/30/24 Caustic Operator Name: [id number] Rob Chairez Allergies adhesive tape (ADHESIVE TAPE) Allergy (Intermediate, Verified 01/19/25 09:04) RASH pioglitazone (From ACTOS) Allergy (Intermediate, Verified 01/19/25 09:04) facial edema,rash latex Allergy (Mild, Verified 01/19/25 09:04) Rash Medication List - Last Reconciled 01/19/25 by TAHMINA Anne acetone (urine) test (Ketone Urine Test strips) As directed glucose over 300, i llness, nausea, vomiting t.i.d. blood pressure kit-extra large As directed blood sugar diagnostic (FreeStyle Lite Strips) TEST 4 TIMES DAILY blood-glucose meter (FreeStyle Lite Meter kit) TEST 4 TIMES DAILY cane As directed cephalexin 500 mg PO Q12H cholecalciferol (vitamin D3) 50 mcg PO DAILY 90 days citalopram 10 mg PO DAILY cyanocobalamin (vitamin B-12) 1,000 mcg sublingual DAILY docusate sodium (Colace) 100 mg PO DAILY ergocalciferol (vitamin D2) 1,250 mcg PO QWEEK 90 days escitalopram oxalate 10 mg PO DAILY folic acid 1 mg PO DAILY furosemide 20 mg PO BID 90 days glucagon 3 mg/actuation (Baqsimi) 3 mg intranasal .prn PRN 30 days MDD 6 mg insulin degludec (Tresiba FlexTouch U-200 insulin) 70 units subcut BEDTIME insulin regular hum U-500 conc (Humulin R U-500 (Concentrated) Insulin) up to 425 units per day via pump subcutaneously use as directed insulin syringe-needle U-100 (Advocate Syringes) Use 1 needle once a month lidocaine 5% (Lidoderm) 1 patch topical DAILY PRN MDD remove after 12 hours lisinopril 10 mg PO DAILY montelukast 10 mg PO DAILY 90 days naloxone 4 mg/actuation (Narcan) 4 mg intranasal Q2M PRN 30 days nebulizers (AeroEclipse II Nebulizer) As directed ondansetron 4 mg PO Q12H oxycodone-acetaminophen 5-325 mg 1 tab PO Q8H PRN 30 days pantoprazole 40 mg PO DAILY 30 days pen needle, diabetic As directed qid prn pump failure pen needle, diabetic (Comfort EZ Pen [place]) As directed once daily, prn pump failure can increase to qid pen needle, diabetic (Comfort EZ Pen [place]) As directed daily: In the event a pump failure use up to q.i.d. rosuvastatin 40 mg PO DAILY 90 days Shower Chair As directed [skin tac apply to skin at pump site and sensor site after cleansing with alcohol.Insert pump cannula/sensor after skin tac has allowed to dry. Use on pump every three days, every 10 at sensor site.] syringe with needle (Personal Capitaler Slip Syringe-Needle) For vitamin B12 injection syringe with needle, safety (BD Safety-Jone Detachable Needle) Use 1 syringe once a month tirzepatide (Mounjaro) 15 mg (0.5 mL) subcut QWEEK 28 days trazodone 25 - 50 mg PO BEDTIME PRN HPI Comments Details: Pt is 3w s/p panniculectomy and bilateral brachioplasty 12/30/2024. No fevers at home. Taking abx. Wearing binder at all times. Following meal plan. Drain output has been 9-10cc per day since last week's visit. [facility] Medical History Postgastrectomy malabsorption Bunion of great toe Peripheral vascular disease of lower extremity Cellulitis Uncontrolled type 2 diabetes mellitus with hyperglycemia Physical exam Cellulitis of toe of right foot Hospital discharge follow-up Goiter Onychomycosis Vitamin D deficiency T2DM (type 2 diabetes mellitus) Left ankle pain B12 deficiency Left leg pain Acid reflux History of colonic polyps Chronic fatigue Carpal tunnel syndrome Daytime hypersomnia Autoimmune thyroiditis Fibromyalgia Morbid obesity Spondylosis, thoracic, 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 spine without myelopathy History of ulcer disease Sessile colonic polyp Obesity 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 Diabetic nephropathy associated with type 2 diabetes mellitus Diabetic retinopathy associated with type 2 diabetes mellitus Diabetic polyneuropathy associated with type 2 diabetes mellitus Iron (Fe) deficiency anemia History of Graves' disease Lumbar degenerative disc disease Back pain Anxiety and depression GERD (gastroesophageal reflux disease) Asthma Hyperlipidemia Hypertension Diabetes mellitus Polyarthralgia Surgical History (Updated 01/12/25 @ 15:23 by TAHMINA Anne) S/P brachioplasty S/P panniculectomy History of surgical procedure History of carpal tunnel surgery of right wrist H/O endoscopy History of cataract extraction History of lumpectomy of left breast History of carpal tunnel surgery of left wrist Hx of section Hx laparoscopic cholecystectomy Hx of esophagogastroduodenoscopy Hx of colonoscopy H/O gastric bypass Family History Father Diabetes Hypertension Mother Diabetes Hypertension Maternal Grandmother Colon cancer Paternal Aunt Cancer of ear Social History Household Members: Family Housing: House Are you a primary palliative care nurse practitioner to a significant other at home: No Do you presently have visiting nurse or other home services: No Alcohol intake: never Patient Tobacco Use Status: Former Tobacco user Tobacco use type: Cigarette Cigarette Packs Per Day: 1 Years Smoked: 20 e-Cigarette/Vaping Use: Never Used Second Hand Smoke Exposure: No service: No Current occupational status: disabled Current occupation: right hand dominant Cognitive needs: No Hearing needs: No Vision needs: Yes Female Reproductive History Menstrual Age of Menarche: 14 Physical Exam Vital Signs: Last Vital Signs Temp 97.3 F 01/19/25 09:03 Pulse 73 01/19/25 09:03 BP 148/67 H 01/19/25 09:03 Pulse Ox 100 01/19/25 09:03 Oxygen Delivery Method Room Air 01/19/25 09:03 Const General: cooperative, comfortable and no acute distress Orientation/consciousness: patient oriented x3 GI Other: soft, nontender, nondistended panniculectomy incisions healing well, drain output SS Skin Other: Brachioplasty incisions c/d/i without erythema Neuro General: patient oriented x3 Assessment & Plan Assessment & Plan (1) S/P panniculectomy: Code(s): Z98.890 - Other specified postprocedural states Category: Surgical (2) S/P brachioplasty: Code(s): Z98.890 - Other specified postprocedural states Category: Surgical Plan Continue high protein diet. Drain removed today in office. ABX keflex 500 BID x [address] Abdominal binder at all times except for care x 1 month?MINIMUM. If there are concerns longer.? No walking outside or exercise for 6 weeks minimum. Walking in the house ok. Assistance getting up for 4 weeks minimum.?No lifting greater than?10 pounds x 2 months and no abdominal exercises x 3 months. Continue Xeroform to abdomen, can leave arms with steristrips and ABDs.
--- OUTSIDE RECORDS SUMMARY | 2025-01-19 09:07 | XMS_ITS | Clinical Summary ---
Author Organization [facility] Facility Address [address] [place] [id number] Care Team Providers Care Integrated Circuits Inspector Name Role Phone Analilia Chaidez MD Primary Care Provider [phone] Allergies Active Allergy Reactions Criticality Noted Date [...] this topic Insurance Medicaid Medicaid Care Teams Integrated Circuits Inspector Relationship Specialty Start Date End Date Analilia Chaidez MD [address] [place], [place] PCP - General 03/06/20
--- OUTSIDE RECORDS SUMMARY | 2025-01-19 09:07 | XMS_ITS | Clinical Summary ---
Author Organization [facility] Address [address] [place] [address] Phone Care Team Providers Care Quality Analyst/Technical Writer Name Role Phone Analilia Schumacher MD Primary Care Provider [phone] Allergies No known active allergies Medications acetaminophen [...] mouth 1 (one) time each day. Active doxycycline (Vibramycin) 100 mg capsule Take 1 capsule (100 mg total) by mouth 2 (two) times a day for 10 days. Take with at least 8 ounces (large glass) of water, do not lie down for 30 minutes after. Administer 2 hours before or after multivitamins, antacids, or other products containing polyvalent cations (i.e., calcium, iron, magnesium, selenium, zinc). 20 capsule 01/21/20 Active Active Problems Problem Noted Date Diagnosed Date Bunion of great toe 10/07/2024 Peripheral vascular disease ([facility] V24) 2024 Cellulitis 10/07/2024 Uncontrolled type 2 diabetes mellitus with hyperglycemia ([facility] V24, [facility] V28) 10/07/2024 Onychomycosis 10/07/2024 Vitamin D deficiency 10/07/2024 Type 2 diabetes mellitus ([facility] V24, [facility] V 28) 10/07/2024 Left ankle pain 10/07/2024 B12 deficiency 10/07/2024 Left leg pain 10/07/2024 Acid reflux 10/07/2024 History of colonic polyps 10/07/2024 Chronic fatigue 10/07/2024 Carpal tunnel syndrome 10/07/2024 Daytime hypersomnia 10/07/2024 Autoimmune thyroiditis 10/07/2024 Fibromyalgia 10/07/2024 Morbid obesity ([facility] V24, [facility] V28) 2024 Spondylosis 10/07/2024 History of ulcer disease 10/07/2024 Sessile colonic polyp 10/07/2024 correction (current) use of i nsulin ([facility] V24, [facility] V28) 10/07/2024 Encounters Date Type Department Care Team Description 01/10/2025 9:15 AM EST Office Visit Orthopedic Surgery - [address] [address] Kali Artis, DPM Chronic osteomyelitis of hindfoot, right ([facility] V24, [facility] V28) (Primary Dx); Right foot pain; Acute osteomyelitis of right ankle or foot ([facility] V24, [facility] V28); Ulcer of toe of right foot, with necrosis of bone ([facility] V24, [facility] V28) from Last 3 Months Social History Tobacco [...] Care Team (Late st Contact Info) Description 01/24/2025 1:15 PM EST Office Visit Orthopedic Surgery - [place] [address] [phone] Kali Artis, DPM [address] [address] Health Maintenance Due Date Last [...] 2024 12/23/2023, 02/12/2023, 11/22/2021, Additional history exists DTaP,Tdap,and Td Vaccines [...] (6 to 49 Years) Completed 09/10/2022, 07/21/2015 Influenza Vaccine Completed 12/23/2024, , 11/28/2022, Additional history exists HIB Vaccines Aged Out [...] Associated Diagnosis Comments XR FOOT 3+ VIEWS RIGHT Routine 01/10/2025 9:13 AM EST Right foot pain from Last 3 Months Results * XR Foot 3+ Views Right (01/10/2025 9:13 AM EST) Anatomical Region Laterality Modality Lower Extremities, Foot Right Computed Radiography Narrative 01/10/2025 12:51 PM EST Right foot 3 views Radiographs taken today compared to previous radius taken on September new erosive changes noted distal phalanx of the right second toe concerning for acute and chronic osteomyelitis of the distal tuft of the right second digit Kali Artis DPM IMG XR PROCEDURES Final R esult from Last 3 Months Insurance MEDICAID - [place] [facility] Care Teams Quality Analyst/Technical Writer Relationship Specialty Start Date End Date Analilia Schumacher MD [facility] , [facility] Physician Associ D/B/A: [facility] [place] PCP - General Internal Medicine 12/22/17
== END 2025-01-19 10:04 | disposition home or self-care (01) ==
LOC: HO.HBS 08:45
PROVIDERS: PCP Internal Medicine; Visit Provider Physician Assistant Surgical
DX: Z71.3 Dietary counseling and surveillance (principal); Z98.890 Other specified postprocedural states
CPT/HCPCS: 99024

== ENCOUNTER → 2025-01-19 08:45 | Outpatient (BNVA) | payer OTHER, SELFPAY | PROVIDERS: PCP Internal Medicine; Visit Provider Physician Assistant Surgical | DX: Z98.890 Other specified postprocedural states (principal) | CPT/HCPCS: 99212 ==

== ENCOUNTER 2025-01-26 13:23 | Outpatient (AMB) | payer OTHER, SELFPAY ==
--- OUTSIDE RECORDS SUMMARY | 2025-01-24 13:15 | XMS_ITS | Encounter Summary ---
Author Organization [facility] Address [address] [place] [address] Care Team Providers Care Data Communications Analyst Name Role Phone Analilia Schumacher MD Primary Care Provider [phone] Reason for Visit * Reason Comments Follow-up bunion Encounter Details Date Type Department Care Team ([facility] st Contact Info) Description 01/24/2025 1:15 PM EST Office Visit Orthopedic Surgery - [place] [address] [phone] Kali Artis, DPM [address] [address] Chronic osteomyelitis of hindfoot, right (CMS/HCC V24, CMS/HCC V28) (Primary Dx); Ulcer of toe of right foot, with necrosis of bone (CMS/HCC V24, CMS/HCC V28); Corns and callosities; Type II diabetes mellitus with peripheral circulatory disorder (CMS/HCC V24, CMS/HCC V28); Diabetic mononeuropathy simplex (CMS/[facility] V24, CMS/HCC V28); Follow-up exam Social History Tobacco Use Types Packs/Day Years Used Date Smoking Tobacco: Never Assessed Comments Unknown Sex and Gender Information Value Date Recorded Sex Assigned at Not on file Legal Sex Female 10:48 PM EST Gender Identity Not on file Sexual Orientation Not on file documented as of this encounter Ordered Prescriptions Prescription Sig Dispense Quantity Refills Last Filled Start Date End Date doxycycline (Vibramycin) 100 mg capsule Take 1 capsule (100 mg total) by mouth 2 (two) times a day for 14 days. Take with at least 8 ounces (large glass) of water, do not lie down for 30 minutes after. Administer 2 hours before or after multivitamins, antacids, or other products containing polyvalent cations (i.e., calcium, iron, magnesium, selenium, zinc). 28 each 01/24/2025 documented in this encounter Progress Notes * Kali Artis DPM - 01/24/2025 1:15 PM EST Location Options to have Orthotic Prescriptions Filled: [facility] [place] [address] [place] [address] P: [phone] F: [phone] * Kali Artis DPM - 01/24/2025 1:15 PM EST Last PCP visit:Referring MD: Analilia Schumacher MD 07/15/2024 S Patient presented for evaluation states she has a chronic ulceration on the tip for right second toe has been going for last 4 to 6 weeks states she has a history of it coming and going notes that she recently had plastic surgery at [facility] of her stomach to 3 weeks ago states she was put on some antibiotics reports that she is worsening redness swelling irritation of her right second toe states she did not go to the hospital as instructed did however take the doxycycline as prescribed had finished it 3 days ago redness swelling has significant improvement completely resolved this patient of her services were offered patient declined utilized her son for translation today ROS: GENERAL: Pt denies nausea, fever, vomiting, chills, or shortness of breath. Pt in NAD. CARDIOLOGY: pt denies chest pain, palpitations LUNGS: pt denies shortness of breath MUSCULOSKELETAL: See HPI, otherwise no joint pain or swelling, back pain, or muscle pain. SKIN: see HPI, otherwise no lesions, rash or itching NEURO: No persistent headache, weakness or numbness The remainder of the review of systems is noncontributory PAST MEDICAL HISTORY: Patient Active Problem List Diagnosis Bunion of great toe Peripheral vascular disease ([facility] V24) Cellulitis Uncontrolled type 2 diabetes mellitus with hyperglycemia (CMS/HCC V24, CMS/[facility] V28) Onychomycosis Vitamin D deficiency Type 2 diabetes mellitus (CMS/HCC V24, CMS/[facility] V28) Left ankle pain B12 deficiency Left leg pain Acid reflux History of colonic polyps Chronic fatigue Carpal tunnel syndrome Daytime hypersomnia Autoimmune thyroiditis Fibromyalgia Morbid obesity ([facility] V24, [facility] V28) Spondylosis History of ulcer disease Sessile colonic polyp skilled nursing (current) use of insulin ([facility] V24, [facility] V28) SOCIAL HISTORY: Social History Tobacco Use Smoking status: Not on file Smokeless tobacco: Not on file Substance Use Topics Alcohol use: Not on file ACTIVE MEDICATIONS: No outpatient medications have been marked as taking for the 01/24/25 encounter (Office Visit) with Kali Artis DPM. ALLERGIES: No Known Allergies PHYSICAL EXAM: There were no vitals taken for this visit. PODIATRIC EXAMINATION: GENERAL: Patient appears well nourished, with NAD. VASCULAR: Dorsalis pedis pulses are 04 left 1 out of 4 right and Posterior tibial pulses are 1/4 bilaterally. Capillary filling time within normal limits the digits. No pallor on elevation or rubor on dependency. No varicosities. Denies rest pain or claudication pain. NEUROLOGICAL: Sharp/dull sensation , protective sensation 5/10 with Ipswitch touch test bilaterally, vibratory sensation intact to the tibial tuberosity. ORTHOPEDIC: Good muscle strength 5/5 of all flexors and extensors. Dorsi flexion of ankle ,10 degrees, plantar flexion WNL. No muscle atrophy. DERMATOLOGICAL:. Ulcer tip of right second digit measuring 7 mm x 5 mm x 3 mm with positive probe to bone centrally with significant subcutaneous growth of tissue peripherally no purulent tissue was noted erythema isresolving BIOMECHANICS: Ankle ROM WNL, STJ ROM wnl, MTJ ROM wnl, 1st MPJ ROM tracking bunion deformity bilaterally hammertoe contractures 2 through 5. IMAGING: Radiographs reviewed concerning for osteomyelitis of the tip of the right second distal phalanx IMPRESSION: 1. Chronic osteomyelitis of hindfoot, right ([facility] V24, [facility] V28) 2. Ulcer of toe of right foot, with necrosis of bone ([facility] V24, [facility] V28) 3. Corns and callosities 4. Type II diabetes mellitus with peripheral circulatory disorder ([facility] V24, [facility] V28) 5. Diabetic mononeuropathy simplex ([facility] V24, [facility] V28) 6. Follow-up exam PLAN: Pt was seen and examined, history reviewed. Radiographs taken reviewed no new erosions from previous radiographs taken Doxycycline prescribed for additional 14 days Discussed with patient we will try to cure her osteomyelitis from medical standpoint 4-week course of antibiotics per IDSA guidelines Still recommended distal Symes amputation for definitive removal of infected tissue patient has refused this and currently is medically stable discussed if infection worsens she really should go to the hospital although my current recommendation is to go to the hospital discussed that the sooner the infected bone was removed from her body the quicker she can heal and lowers the risk of her having worsening infectious process patient expressed comprehensive understanding all of her questions were answered New x-ray ordered right foot 3 views will continue to monitor for any new erosive changes Follow-up provided in 1 to 2 weeks Open wound Open wound selective excisional debridement of devitalized soft tissue, fibrin, epidermis, dermis, thru skin and subcutaneous debrided of necrotic bone tissue centrally, first 20 sq cm or less, using sterile sharp dissection #15 scalpel blade. Pt. deferred anesthesia. . Devitalized tissue was not sent to pathology. Kali Artis DPM documented in this encounter Plan of Treatment Upcoming Encounters Date Type Department Care Team (Late st Contact Info) Description 02/08/2025 2:45 PM EST Office Visit Orthopedic Surgery - [place] [address] [phone] Kali Artis DPM [address] [phone] documented as of this encounter Results * XR Foot 3+ Views Right (01/24/2025 1:37 PM EST) Anatomical Region Laterality Modality Lower Extremities, Foot Right Computed Radiography Narrative 01/24/2025 5:56 PM EST Right foot 3 views Erosive changes of the distal phalanx second right seen unchanged from prior radiographs taken earlier last month us Kali Artis DPM IMG XR PROCEDURES Final R esult documented in this encounter Visit Diagnoses Diagnosis Chronic osteomyelitis of hindfoot, right ([facility] V24, [facility] V28)- Primary Ulcer of toe of right foot, with necrosis of bone ([facility] V24, [facility] V28) Corns and callosities Type II diabetes mellitus with peripheral circulatory disorder ([facility] V24, [facility] V28) Type II or unspecified type diabetes mellitus with peripheral circulatory disorders, not stated as uncontrolled Diabetic mononeuropathy simplex ([facility] V24, [facility] V28) Type II or unspecified type diabetes mellitus with neurological manifestations, not stated as uncontrolled Follow-up exam Unspecified follow-up examination documented in this encounter Orders General Supply Count Last Ordered Date First Or dered Date DIABETIC CUSTOM MOLDED SHOE WITH INSERTS 1 01/24/2025 documented in this encounter Care Teams Data Communications Analyst Relationship Specialty Start Date End Date Analilia Schumacher MD [address] [place] [address] , [address] [facility] Physician Associ D/B/A: [facility] [place] PCP - General Internal Medicine 12/22/17 documented as of this encounter
--- NOTE | 2025-01-26 13:47 | A.OFFVIS_ITS ---
Vital Signs 01/26/25 14:01 BP 164/74 H Blood Pressure Location Rt radial Position Sitting Respiration 18 Pulse 75 Pulse Source Pulse Oximeter Temp 97.6 F Pulse Oximetry (%) 99 Intake Visit Reasons: OV PO Panni + Brachio 12/30/24 Science Instructor Required: Yes Science Instructor Name: Contreras [id number] Cassidy Accompanied by: Self / Same As Patient Allergies adhesive tape (ADHESIVE TAPE) Allergy (Intermediate, Verified 01/26/25 13:52) RASH pioglitazone (From ACTOS) Allergy (Intermediate, Verified 01/26/25 13:52) facial edema,rash latex Allergy (Mild, Verified 01/26/25 13:52) Rash Medication List - Last Reconciled 01/26/25 by TAHMINA Anne acetone (urine) test (Ketone Urine Test strips) As directed glucose over 300, illness, nausea, vomiting t.i.d. blood pressure kit-extra large As directed blood sugar diagnostic (FreeStyle Lite Strips) TEST 4 TIMES DAILY blood-glucose meter (FreeStyle Lite Meter kit) TEST 4 TIMES DAILY cane As directed cholecalciferol (vitamin D3) 50 mcg PO DAILY 90 days citalopram 10 mg PO DAILY cyanocobalamin (vitamin B-12) 1,000 mcg sublingual DAILY docusate sodium (Colace) 100 mg PO DAILY ergocalciferol (vitamin D2) 1,250 mcg PO QWEEK 90 days escitalopram oxalate 10 mg PO DAILY folic acid 1 mg PO DAILY furosemide 20 mg PO BID 90 days glucagon 3 mg/actuation (Baqsimi) 3 mg intranasal .prn PRN 30 days MDD 6 mg insulin degludec (Tresiba FlexTouch U-200 insulin) 70 units subcut BEDTIME insulin regular hum U-500 conc (Humulin R U-500 (Concentrated) Insulin) up to 425 units per day via pump subcutaneously use as directed insulin syringe-needle U-100 (Advocate Syringes) Use 1 needle once a month lidocaine 5% (Lidoderm) 1 patch topical DAILY PRN MDD remove after 12 hours lisinopril 10 mg PO DAILY montelukast 10 mg PO DAILY 90 days naloxone 4 mg/actuation (Narcan) 4 mg intranasal Q2M PRN 30 days nebulizers (AeroEclipse II Nebulizer) As directed ondansetron 4 mg PO Q12H oxycodone-acetaminophen 5-325 mg 1 tab PO Q8H PRN 30 days pantoprazole 40 mg PO DAILY 30 days pen needle, diabetic As directed qid prn pump failure pen needle, diabetic (Comfort EZ Pen [place]) As directed once daily, prn pump failure can increase to qid pen needle, diabetic (Comfort EZ Pen [place]) As directed daily: In the event a pump failure use up to q.i.d. rosuvastatin 40 mg PO DAILY 90 days Shower Chair As directed [skin tac apply to skin at pump site and sensor site after cleansing with alcohol.Insert pump cannula/sensor after skin tac has allowed to dry. Use on pump every three days, every 10 at sensor site.] syringe with needle ([employer] Slip Syringe-Needle) For vitamin B12 injection syringe with needle, safety (BD Safety-Jone Detachable Needle) Use 1 syringe once a month tirzepatide (Mounjaro) 15 mg (0.5 mL) subcut QWEEK 28 days trazodone 25 - 50 mg PO BEDTIME PRN HPI Comments Details: Pt is 5w s/p panniculectomy and bilateral brachioplasty 12/30/2024. No fevers at home. Taking abx. Wearing binder at all times. Following meal plan. Drain was removed last week. Pt notes a bit of swelling on left side of abdomen under incision but no pain. 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 spine without myelopathy History of ulcer disease Sessile colonic polyp Obesity 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 Diabetic nephropathy associated with type 2 diabetes mellitus Diabetic retinopathy associated with type 2 diabetes mellitus Diabetic polyneuropathy associated with type 2 diabetes mellitus Iron (Fe) deficiency anemia History of Graves' disease Lumbar degenerative disc disease Back pain Anxiety and depression GERD (gastroesophageal reflux disease) Asthma Hyperlipidemia Hypertension Diabetes mellitus Polyarthralgia Surgical History S/P brachioplasty S/P panniculectomy History of surgical procedure History of carpal tunnel surgery of right wrist H/O endoscopy History of cataract extraction History of lumpectomy of left breast History of carpal tunnel surgery of left wrist Hx of section Hx laparoscopic cholecystectomy Hx of esophagogastroduodenoscopy Hx of colonoscopy H/O gastric bypass Family History Father Diabetes Hypertension Mother Diabetes Hypertension Maternal Grandmother Colon cancer Paternal Aunt Cancer of ear Social History Household Members: Family Housing: House Are you a primary resident care provider to a significant other at home: No Do you presently have visiting nurse or other home services: No Alcohol intake: never Patient Tobacco Use Status: Former Tobacco user Tobacco use type: Cigarette Cigarette Packs Per Day: 1 Years Smoked: 20 e-Cigarette/Vaping Use: Never Used Second Hand Smoke Exposure: No service: No Current occupational status: disabled Current occupation: right hand dominant Cognitive needs: No Hearing needs: No Vision needs: Yes Female Reproductive History Menstrual Age of Menarche: 14 Physical Exam Vital Signs: Last Vital Signs Temp 97.6 F 01/26/25 14:01 Pulse 75 01/26/25 14:01 Resp 18 01/26/25 14:01 BP 164/74 H 01/26/25 14:01 Pulse Ox 99 01/26/25 14:01 Const General: cooperative, comfortable and no acute distress Orientation/consciousness: patient oriented x3 GI Other: soft, nontender, panniculectomy incision healing well, previous drain site healed, entire abdomen is soft but asymmetrical with left side slightly larger than right Neuro General: patient oriented x3 Assessment & Plan Assessment & Plan (1) Gastric bypass status for obesity: Code(s): Z98.84 - Bariatric surgery status Category: Surgical (2) S/P panniculectomy: Code(s): Z98.890 - Other specified postprocedural states Category: Surgical (3) S/P brachioplasty: Code(s): Z98.890 - Other specified postprocedural states Category: Surgical Plan Continue high protein diet. Can stop abx. May drive. Abdominal binder at all times except for care.. If there are concerns longer. No walking outside or exercise for 6 weeks minimum. Walking in the house ok. Assistance getting up for 4 weeks minimum. No lifting greater than 10 pounds x 2 months and no abdominal exercises x 3 months. 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 We will continue to monitor appearance of abdomen, no palpable collection/seroma at this time. Continue Xeroform to umbilicus can leave arms open to air with steri-strips. Coding Level of Care Code Est Pt Level 4 (51438) Diagnoses Gastric bypass status for obesity Z98.84 S/P panniculectomy Z98.890 S/P brachioplasty Z98.890 Time Spent (min) 30
[2025-01-26 14:01] VITALS: BP 164/74; PULSE 75; RESP 18; TEMP 36.4; O2SAT 99
--- OUTSIDE RECORDS SUMMARY | 2025-01-26 15:56 | XMS_ITS | Clinical Summary ---
Author Organization [address] [facility] Address [address] [place] [address] Phone Care Team Providers Care Cdl Service Technician Name Role Phone Analilia Schumacher MD Primary Care Provider [phone] Allergies No known active allergies Medications acetaminophen [...] mouth 2 (two) times a day. Active canagliflozin- metformin 50-500 mg tablet Take 300 mg by mouth 1 (one) time each day. Active cane device Active cetirizine (ZyrTEC) 10 mg chewable tablet Chew 1 (one) time each day. Active cholecalcifero l (VITAMIN D-3) 25 mcg (1,000 unit) tablet Take 1 tablet (1,000 Units total) by mouth 1 (one) time each day. Active cyclobenzaprin e (FLEXERIL) 10 mg tablet Take 1 tablet [...] 1 (one) time each day. Active calcium citrate-vitami n D 250 mg-2.5 mcg (100 unit) per [...] topically 2 (two) times a day. Active pramoxine-hydr ocortisone (ANALPRAM HC) cream Apply topically 3 (three) [...] or as directed by MD. Active lisinopriL (PRINIVIL,ZEST RIL) 20 mg tablet Take 1 tablet (20 mg total) by mouth 1 (one) time each day. Active methylcellulos e oral powder Take by mouth 1 (one) time each day. Active montelukast (SINGULAIR) 10 mg tablet Take 1 tablet (10 mg total) by mouth at bedtime. Active nebulizers misc Active nortriptyline (PAMELOR) 10 mg capsule Take 1 capsule (10 mg total) by mouth at bedtime. Active ondansetron (ZOFRAN) 4 mg tablet Take 1 tablet (4 mg total) by mouth every 8 (eight) hours if needed for nausea or vomiting. Active oxyCODONE-acet aminophen (PERCOCET) 5-325 mg per tablet Take 1 tablet by mouth every 8 (eight) hours if needed for severe pain. Max Daily Amount: 3 tablets Active pantoprazole (PROTONIX) 40 mg EC tablet Take 1 tablet (40 mg total) by mouth 1 (one) time each day before breakfast. Do not crush, chew, or split. Active prochlorperazi ne (COMPAZINE) 10 mg tablet Take 1 tablet [...] calcium, iron, magnesium, selenium, zinc). 28 each 5 02/08/20 25 Active doxycycline (Vibramycin) 100 mg capsule Take 1 capsule (100 mg total) by mouth 2 (two) times a day for 10 days. Take with at least 8 ounces (large glass) of water, do not lie down for 30 minutes after. Administer 2 hours before or after multivitamins, antacids, or other products containing polyvalent cations (i.e., calcium, iron, magnesium, selenium, zinc). 20 capsule 5 01/21/20 25 Active Problems Problem Noted Date Diagnosed Date Bunion of great toe 10/07/2024 Peripheral vascular disease ([facility] V24) 2024 Cellulitis 10/07/2024 Uncontrolled type 2 diabetes mellitus with hyperglycemia ([facility] V24, [facility] V28) 10/07/2024 Onychomycosis 10/07/2024 Vitamin D deficiency 10/07/2024 Type 2 diabetes mellitus ([facility] V24, [facility] V 28) 10/07/2024 Left ankle pain 10/07/2024 B12 deficiency 10/07/2024 Left leg pain 10/07/2024 Acid reflux 10/07/2024 History of colonic polyps 10/07/2024 Chronic fatigue 10/07/2024 Carpal tunnel syndrome 10/07/2024 Daytime hypersomnia 10/07/2024 Autoimmune thyroiditis 10/07/2024 Fibromyalgia 10/07/2024 Morbid obesity ([facility] V24, [facility] V28) 2024 Spondylosis 10/07/2024 History of ulcer disease 10/07/2024 Sessile colonic polyp 10/07/2024 MCC (current) use of i nsulin ([facility] V24, [facility] V28) 10/07/2024 Encounters Date Type Department Care Team Description 01/24/2025 1:15 PM EST Office Visit Orthopedic Surgery - [address] [id number] Kali Artis DPM Chronic osteomyelitis of hindfoot, right (CMS/HCC V24, CMS/HCC V28) (Primary Dx); Ulcer of toe of right foot, with necrosis of bone (CMS/HCC V24, CMS/HCC V28); Corns and callosities; Type II diabetes mellitus with peripheral circulatory disorder (CMS/HCC V24, CMS/HCC V28); Diabetic mononeuropathy simplex (CMS/HCC V24, CMS/HCC V28); Follow-up exam 01/10/2025 9:15 AM EST Office Visit Orthopedic Surgery [facility] [address] [id number] Kali Artis DPM Chronic osteomyelitis of hindfoot, right (CMS/HCC V24, CMS/HCC V28) (Primary Dx); Right foot pain; Acute osteomyelitis of right ankle or foot (CMS/HCC V24, CMS/HCC V28); Ulcer of toe of right foot, with necrosis of bone (CMS/HCC V24, CMS/HCC V28) from Last 3 Months Social History [...] 2:45 PM EST Office Visit Orthopedic Surgery [facility] [address] [phone] Kali Artis DPM [address] [address] Health Maintenance Due Date Last [...] Comments XR FOOT 3+ VIEWS RIGHT Routine 01/24/2025 1:37 PM EST Follow-up exam XR FOOT 3+ VIEWS RIGHT Routine 01/10/2025 9:13 AM EST Right foot pain from Last 3 Months Results * XR Foot 3+ Views Right (01/24/2025 1:37 PM EST) Only the most recent of2 resultswithin the time period is included. Anatomical Region Laterality Modality Lower Extremities, Foot Right Computed Radiography Narrative 01/24/2025 5:56 PM EST Right foot 3 views Erosive changes of the distal phalanx second right seen unchanged from prior radiographs taken earlier last month us Kali Artis DPM IMG XR PROCEDURES Final R esult from Last 3 Months Insurance MEDICAID - [place] [facility] PL[facility] Care Teams Cdl Service Technician Relationship Specialty Start Date End Date Analilia Schumacher MD [address] [facility] , [address] [facility] D/B/A: [facility] RICHARDSON Fuentes PCP - General Internal Medicine 12/22/17
== END 2025-01-26 14:35 | disposition home or self-care (01) ==
LOC: HO.HBS 13:24
PROVIDERS: PCP Internal Medicine; Visit Provider Physician Assistant Surgical
DX: Z71.3 Dietary counseling and surveillance (principal); Z98.84 Bariatric surgery status; Z98.890 Other specified postprocedural states
CPT/HCPCS: 99024

== ENCOUNTER → 2025-01-26 13:23 | Outpatient (BNVA) | payer OTHER, SELFPAY | PROVIDERS: PCP Internal Medicine; Visit Provider Physician Assistant Surgical | DX: Z48.815 Encounter for surgical aftercare following surgery on the digestive system (principal); Z98.84 Bariatric surgery status; Z98.890 Other specified postprocedural states; Z71.3 Dietary counseling and surveillance | CPT/HCPCS: 99212 ==

== ENCOUNTER 2025-01-31 08:12 | Outpatient (AMB) | payer OTHER, SELFPAY ==
--- NOTE | 2025-01-31 08:26 | A.OFFPC_ITS ---
Vital Signs 01/31/25 08:27 Height 5 ft 9 in Weight 172 lb 6 oz BMI 25.5 BP 122/60 Blood Pressure Location Rt brachial Position Sitting Pulse 77 Pulse Source Pulse Oximeter Temp 97.3 F Temp Source Temporal Artery Scan Pulse Oximetry (%) 98 Oxygen Delivery Method Room Air Intake Visit Reasons: PE-see comments Intake Note: Patient is here today for a physical. Correction Warden Required: Yes Correction Warden Language: [place] Information Interpreted: non-clinical & clinical Head Stock Transfer Clerk: Not Required per policy Accompanied by: Self / Same As Patient Allergies adhesive tape (ADHESIVE TAPE) Allergy (Intermediate, Verified 01/31/25 08:55) RASH pioglitazone (From ACTOS) Allergy (Intermediate, Verified 01/31/25 08:55) facial edema,rash latex Allergy (Mild, Verified 01/31/25 08:55) Rash Medication List - Last Reconciled 01/31/25 by Analilia Schumacher MD acetone (urine) test (Ketone Urine Test strips) As directed glucose over 300, illness, nausea, vomiting t.i.d. blood pressure kit-extra large As directed blood sugar diagnostic (FreeStyle Lite Strips) TEST 4 TIMES DAILY blood-glucose meter (FreeStyle Lite Meter kit) TEST 4 TIMES DAILY cane As directed cholecalciferol (vitamin D3) 50 mcg PO DAILY 90 days citalopram 10 mg PO DAILY cyanocobalamin (vitamin B-12) 1,000 mcg sublingual DAILY docusate sodium (Colace) 100 mg PO DAILY ergocalciferol (vitamin D2) 1,250 mcg PO QWEEK 90 days escitalopram oxalate 10 mg PO DAILY folic acid 1 mg PO DAILY furosemide 20 mg PO BID 90 days glucagon 3 mg/actuation (Baqsimi) 3 mg intranasal .prn PRN 30 days MDD 6 mg insulin degludec (Tresiba FlexTouch U-200 insulin) 70 units subcut BEDTIME insulin regular hum U-500 conc (Humulin R U-500 (Concentrated) Insulin) up to 425 units per day via pump subcutaneously use as directed insulin syringe-needle U-100 (Advocate Syringes) Use 1 needle once a month lidocaine 5% (Lidoderm) 1 patch topical DAILY PRN MDD remove after 12 hours lisinopril 10 mg PO DAILY montelukast 10 mg PO DAILY 90 days naloxone 4 mg/actuation (Narcan) 4 mg intranasal Q2M PRN 30 days nebulizers (AeroEclipse II Nebulizer) As directed ondansetron 4 mg PO Q12H oxycodone-acetaminophen 5-325 mg 1 tab PO Q8H PRN 30 days pantoprazole 40 mg PO DAILY 30 days pen needle, diabetic As directed qid prn pump failure pen needle, diabetic (Comfort EZ Pen [place]) As directed once daily, prn pump failure can increase to qid pen needle, diabetic (Comfort EZ Pen [place]) As directed daily: In the event a pump failure use up to q.i.d. rosuvastatin 40 mg PO DAILY 90 days Shower Chair As directed [skin tac apply to skin at pump site and sensor site after cleansing with alcohol.Insert pump cannula/sensor after skin tac has allowed to dry. Use on pump every three days, every 10 at sensor site.] syringe with needle ([employer] Luer Slip Syringe-Needle) For vitamin B12 injection syringe with needle, safety (BD Safety-Jone Detachable Needle) Use 1 syringe once a month tirzepatide (Mounjaro) 15 mg (0.5 mL) subcut QWEEK 28 days trazodone 25 - 50 mg PO BEDTIME PRN Tobacco use date assessed: 01/31/25 Dental Screening Dental Screen Date: 10/06/24 HPI HPI Comments History of Present Illness Details The patient is a 49 year old female presenting for a physical exam. She has a history of type 2 diabetes mellitus with long-term insulin use. The patient's A1c today was 9.9%. I will increase her Tresiba. She does follows with endocrinology. Her history also includes lumbar spondylosis and chronic opioid use. She has a diagnosis of autoimmune thyroiditis and is recovering from a brachioplasty surgery performed last month. For health maintenance, her mammogram was done in 2023 and her Pap smear was completed in 2023. Her last colonoscopy was in 2020, with a repeat scheduled for next year. She is up to date on her vaccinations, having received a Tdap in 2023, as well as the PCV20 and flu vaccines this year. She complains of bilateral ear itchiness and eardrops will be sent. [facility] Medical History (Updated 01/31/25 @ 09:15 by Analilia Schumacher MD) Postgastrectomy malabsorption Bunion of great toe Peripheral vascular disease of lower extremity Cellulitis Uncontrolled type 2 diabetes mellitus with hyperglycemia Physical exam Cellulitis of toe of right foot Hospital discharge follow-up Goiter Onychomycosis Vitamin D deficiency T2DM (type 2 diabetes mellitus) Left ankle pain B12 deficiency Left leg pain Acid reflux History of colonic polyps Chronic fatigue Carpal tunnel syndrome Daytime hypersomnia Autoimmune thyroiditis Fibromyalgia Morbid obesity Spondylosis, thoracic, 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 spine without myelopathy History of ulcer disease Sessile colonic polyp Obesity Tracee's disease residential (current) use of insulin Diabetic nephropathy associated with type 2 diabetes mellitus Diabetic retinopathy associated with type 2 diabetes mellitus Diabetic polyneuropathy associated with type 2 diabetes mellitus Iron (Fe) deficiency anemia History of Graves' disease Lumbar degenerative disc disease Back pain Anxiety and depression GERD (gastroesophageal reflux disease) Asthma Hyperlipidemia Hypertension Diabetes mellitus Polyarthralgia Surgical History History of abdominal surgery History of brachioplasty S/P brachioplasty S/P panniculectomy History of surgical procedure History of carpal tunnel surgery of right wrist H/O endoscopy History of cataract extraction History of lumpectomy of left breast History of carpal tunnel surgery of left wrist Hx of section Hx laparoscopic cholecystectomy Hx of esophagogastroduodenoscopy Hx of colonoscopy H/O gastric bypass Family History Father Diabetes Hypertension Mother Diabetes Hypertension Maternal Grandmother Colon cancer Paternal Aunt Cancer of ear Social History Household Members: Family Housing: House Are you a primary healthcare educator to a significant other at home: No Do you presently have visiting nurse or other home services: No Alcohol intake: never Patient Tobacco Use Status: Former Tobacco user Tobacco use type: Cigarette Cigarette Packs Per Day: 1 Years Smoked: 20 e-Cigarette/Vaping Use: Never Used Second Hand Smoke Exposure: Yes service: No Current occupational status: disabled Current occupation: right hand dominant Cognitive needs: No Hearing needs: No Vision needs: Yes Female Reproductive History Menstrual Age of Menarche: 14 Questionnaire Thrive Questionnaire Date Thrive assessed: 10/06/24 I am a: Patient What is your living situation today?: I have a steady place to live Within the past 12 months, did the food you bought not last and you didn't have the money to get more?: Sometimes True Within the past 12 months, did you worry whether your food would run out before you got money to buy more?: Sometimes True Do you have trouble paying for medicines?: Yes Do you have trouble getting transportation to medical appointments?: Yes Do you have trouble paying your heating and electricity bill?: Yes Do you have trouble taking care of your child, family member or friend?: No Do you have trouble with day-to-day activities such as bathing, preparing meals, shopping, managing finances, etc.?: No Are you currently unemployed and looking for a job?: Yes Are you interested in more education?: No Currently or been in a relationship where the following occur: No concerns reported THRIVE Score: 4 MARCO-7 AMB Questionnaire MARCO-7 Date MARCO - 7 assessed: 10/06/24 Source: Developed by Drs. Parmjit Be, Yessi Gold, Ji Mahmood and colleagues, with an educational anni from [employer]. Review of Systems Const All systems reviewed & are unremarkable except as noted in HPI and below Card Denies chest pain at rest, Denies chest pain with activity, Denies edema, Denies irregular heart rhythm, Denies claudication, Denies dyspnea, Denies dyspnea on exertion, Denies orthopnea, Denies paroxysmal nocturnal dyspnea and Denies slow heart rate Resp Denies cough, Denies dyspnea and Denies dyspnea on exertion GI Denies abdominal pain, Denies change in bowel habits, Denies excessive flatus, Denies nausea and Denies vomiting Physical exam (Primary Care) Vital Signs: Last Vital Signs Temp 97.3 F 01/31/25 08:27 Pulse 77 01/31/25 08:27 BP 122/60 01/31/25 08:27 Pulse Ox 98 01/31/25 08:27 Oxygen Delivery Method Room Air 01/31/25 08:27 BMI result Body Mass Index 25.5 Tobacco/Smoking Status: Tobacco use Status Tobacco use date assessed 01/31/25 01/31/25 08:41 Patient Tobacco Use Status Former Tobacco user 01/31/25 08:41 Tobacco use type Cigarette 01/31/25 08:41 e-Cigarette/Vaping Use Never Used 01/31/25 08:41 Thrive Assessment: Date of Thrive Assessment Date Thrive assessed 10/06/24 01/31/25 08:41 Currently or been in a relationship where the following occur: No concerns reported [facility] Head: Yes normal to inspection, Yes normocephalic and Yes atraumatic Ears: external ears normal Eyes General: appearance normal, both eyes and all related structures Eyelids: Yes eyelids normal Conjunctivae: conjunctivae normal Neck Neck: Yes normal visual inspection and Yes supple Resp Effort & Inspection: normal respiratory effort Auscultation: clear to auscultation bilaterally Cardio Jugular venous distension: no JVD Rate: regular rate Rhythm: regular rhythm Heart sounds: S1 normal heart sound present and S2 normal heart sound present GI Inspection: Yes normal to inspection Palpation (GI): Soft to palpation and nontender Auscultation: normal bowel sounds Skin General skin exam: no rashes or lesions noted Neuro General: no focal motor deficits Extrem General: Yes full ROM Psych Appearance: grossly normal Results AMB Hemoglobin A1c AMB Hemoglobin A1c 9.9 % Last Edit by LASHONDA Mcqueen on 01/31/25 08:42 Results Reviewed Results Reviewed: Laboratory Last Values Hgb A1c (Clinic) 9.9 % (4.0-6.0) H 01/31/25 08:26 Coding Level of Care Code Est Pt Level 3 (20558) Est Pt Prev Care 40-64y(92130) Diagnoses Physical exam Z00.00 Ear itch L29.9 Spondylosis of lumbosacral spine without myelopathy M47.817 Autoimmune thyroiditis E06.3 Uncontrolled type 2 diabetes mellitus with hyperglycemia E11.65 Time Spent (min) 33 Assessment & Plan Assessment & Plan (1) Physical exam: Code(s): Z00.00 - Encounter for general adult medical examination without abnormal findings Category: Medical (2) Ear itch: Code(s): L29.9 - Pruritus, unspecified Category: Medical (3) Spondylosis of lumbosacral spine without myelopathy: Code(s): M47.817 - Spondylosis without myelopathy or radiculopathy, lumbosacral region Category: Medical (4) Autoimmune thyroiditis: Code(s): E06.3 - Autoimmune thyroiditis Category: Medical (5) Uncontrolled type 2 diabetes mellitus with hyperglycemia: Code(s): E11.65 - Type 2 diabetes mellitus with hyperglycemia Category: Medical Plan Plan 1. Physical exam Repeat in a year. Mammogram ordered. 2. Type 2 Diabetes Mellitus Due to a recent A1c of 9.9%, the patient's Tresiba dosage will be increased from 7 units to 7.5 units once a day. A lipid panel and microalbumin will be ordered to monitor for complications, with a goal LDL of 70 mg/dL or less. 3. Autoimmune Thyroiditis TSH levels will be checked. 4. Ear Pruritus For complaints of ear itchiness, dermatic ear drops will be prescribed and sent to the pharmacy. 5. Lumbar spondylosis Continue opiate use as needed. Orders: Orders AMB Hemoglobin A1c Today E11.65 - Type 2 diabetes mellitus with hyperglycemia, Z79.4 - residential (current) use of insulin MM tomosynthesis screening BI Today Z12.31 - Encounter for screening mammogram for malignant neoplasm of breast Vitamin D 25-OH Total Today E55.9 - Vitamin D deficiency, unspecified Thyroid Stimulating Hormone Today E06.3 - Autoimmune thyroiditis Vitamin B12 and Folate Today E53.8 - Deficiency of other specified B group vitamins Microalbumin, Random (w Creat) Today R80.9 - Proteinuria, unspecified Lipid Panel Today E78.5 - Hyperlipidemia, unspecified Comprehensive [place]. Panel Fast Today I73.9 - Peripheral vascular disease, unspecified Medications: New fluocinolone acetonide oil 0.01% (DermOtic Oil) 5 drps otic (ears) BID 20 mL 0RF 7 days L29.9 - Pruritus, unspecified Changed From insulin degludec (Tresiba FlexTouch U-200 insulin) 70 units subcut BEDTIME To insulin degludec (Tresiba FlexTouch U-200 insulin) 75 units (0.375 mL) subcut BEDTIME 33.75 mL 1RF 90 days Refilled folic acid 1 mg PO DAILY 90 tabs 2RF naloxone 4 mg/actuation (Narcan) spray 1 dose into ONE nostril; alternate nostrils w each dose until help arrives 4 mg intranasal Q2M PRN 2 ea 1RF opioid overdose 30 days oxycodone-acetaminophen 5-325 mg Partial Fill upon patient request. 1 tab PO Q8H PRN 90 tabs 0RF pain 30 days M54.32 - Sciatica, left side cholecalciferol (vitamin D3) 50 mcg PO DAILY 90 caps 3RF 90 days furosemide 20 mg PO BID 180 tabs 1RF 90 days glucagon 3 mg/actuation (Baqsimi) administer x 1 May repeat in 15 minutes if needed 3 mg intranasal .prn PRN 2 ea 1RF Unresponsive hypoglycemia 30 days MDD 6 mg E11.65 - Type 2 diabetes mellitus with hyperglycemia pantoprazole 40 mg PO DAILY 30 tabs 1RF 30 days
[2025-01-31 08:27] VITALS: BP 122/60; PULSE 77; TEMP 36.3; O2SAT 98; BMI 25.5
== END 2025-01-31 09:12 | disposition home or self-care (01) ==
LOC: HO.HMCH 08:13
PROVIDERS: PCP Internal Medicine; Visit Provider Internal Medicine
DX: Z00.00 Encounter for general adult medical examination without abnormal findings (principal); E11.65 Type 2 diabetes mellitus with hyperglycemia; Z79.4 Long term (current) use of insulin; L29.9 Pruritus, unspecified; M47.817 Spondylosis without myelopathy or radiculopathy, lumbosacral region; E06.3 Autoimmune thyroiditis

== ENCOUNTER → 2025-01-31 08:12 | Outpatient (BNVA) | payer OTHER, SELFPAY | PROVIDERS: PCP Internal Medicine; Visit Provider Internal Medicine | DX: Z00.00 Encounter for general adult medical examination without abnormal findings (principal); M47.817 Spondylosis without myelopathy or radiculopathy, lumbosacral region; E06.3 Autoimmune thyroiditis; E11.65 Type 2 diabetes mellitus with hyperglycemia; L29.9 Pruritus, unspecified; M54.32 Sciatica, left side; Z79.899 Other long term (current) drug therapy | CPT/HCPCS: 83036; 99212; 99396 ==

== ENCOUNTER 2025-02-02 15:18 | Outpatient (AMB) | payer OTHER, SELFPAY ==
--- NOTE | 2025-02-02 15:29 | MHC.OFFVISWM ---
VS Expanded 02/02/25 15:44 BP 175/85 H Blood Pressure Location Rt brachial Blood Pressure Position Sitting Pulse 78 Pulse Source Pulse Oximeter Temp 97 F Temperature Source Temporal Artery Scan Pulse Oximetry 97 Height 5 ft 9 in Weight 170 lb 3.2 oz BMI 25.1 Body Fat % 23.3 Body Fat Mass 39.6 Fat Free Mass 130.6 Visceral Fat Rating 4.0 Body Water % 54.5 Body Water Mass 92.8 Muscle Mass/Score 123.8 Basal Metabolic Rate/Score 1,717 Intake Visit Reasons: OV PO Panni + Brachio 12/30/24 Director Of Safety Required: Yes Director Of Safety Name: Evangelist Cordoba, [id number] Information Interpreted: clinical only Allergies adhesive tape (ADHESIVE TAPE) Allergy (Intermediate, Verified 02/02/25 15:46) RASH pioglitazone (From ACTOS) Allergy (Intermediate, Verified 02/02/25 15:46) facial edema,rash latex Allergy (Mild, Verified 02/02/25 15:46) Rash Medication List - Last Reconciled 02/02/25 by TAHMINA Anne acetone (urine) test (Ketone Urine Test strips) As directed glucose over 300, illness, nausea, vomiting t.i.d. blood pressure kit-extra large As directed blood sugar diagnostic (FreeStyle Lite Strips) TEST 4 TIMES DAILY blood-glucose meter (FreeStyle Lite Meter kit) TEST 4 TIMES DAILY cane As directed cholecalciferol (vitamin D3) 50 mcg PO DAILY 90 days citalopram 10 mg PO DAILY cyanocobalamin (vitamin B-12) 1,000 mcg sublingual DAILY docusate sodium (Colace) 100 mg PO DAILY ergocalciferol (vitamin D2) 1,250 mcg PO QWEEK 90 days escitalopram oxalate 10 mg PO DAILY fluocinolone acetonide oil 0.01% (DermOtic Oil) 5 drps otic (ears) BID 7 days folic acid 1 mg PO DAILY furosemide 20 mg PO BID 90 days glucagon 3 mg/actuation (Baqsimi) 3 mg intranasal .prn PRN 30 days MDD 6 mg insulin degludec (Tresiba FlexTouch U-200 insulin) 75 units (0.375 mL) subcut BEDTIME 90 days insulin regular hum U-500 conc (Humulin R U-500 (Concentrated) Insulin) up to 425 units per day via pump subcutaneously use as directed insulin syringe-needle U-100 (Advocate Syringes) Use 1 needle once a month lidocaine 5% (Lidoderm) 1 patch topical DAILY PRN MDD remove after 12 hours lisinopril 10 mg PO DAILY montelukast 10 mg PO DAILY 90 days naloxone 4 mg/actuation (Narcan) 4 mg intranasal Q2M PRN 30 days nebulizers (AeroEclipse II Nebulizer) As directed ondansetron 4 mg PO Q12H oxycodone-acetaminophen 5-325 mg 1 tab PO Q8H PRN 30 days pantoprazole 40 mg PO DAILY 30 days pen needle, diabetic As directed qid prn pump failure pen needle, diabetic (Comfort EZ Pen [place]) As directed once daily, prn pump failure can increase to qid pen needle, diabetic (Comfort EZ Pen [place]) As directed daily: In the event a pump failure use up to q.i.d. rosuvastatin 40 mg PO DAILY 90 days Shower Chair As directed [skin tac apply to skin at pump site and sensor site after cleansing with alcohol.Insert pump cannula/sensor after skin tac has allowed to dry. Use on pump every three days, every 10 at sensor site.] syringe with needle ([employer] Luer Slip Syringe-Needle) For vitamin B12 injection syringe with needle, safety (BD Safety-Jone Detachable Needle) Use 1 syringe once a month tirzepatide (Mounjaro) 15 mg (0.5 mL) subcut QWEEK 28 days trazodone 25 - 50 mg PO BEDTIME PRN HPI Comments Details: Pt is 6w s/p panniculectomy and bilateral brachioplasty 12/30/2024. No fevers at home. Abx completed last week. Wearing binder at all times. Following meal plan. Pt notes the swelling on left side of abdomen under incision has decreased. She is concerned about an open area on abdomen. [facility] Medical History Postgastrectomy malabsorption Bunion of great toe Peripheral vascular disease of lower extremity Cellulitis Uncontrolled type 2 diabetes mellitus with hyperglycemia Physical exam Cellulitis of toe of right foot Hospital discharge follow-up Goiter Onychomycosis Vitamin D deficiency T2DM (type 2 diabetes mellitus) Left ankle pain B12 deficiency Left leg pain Acid reflux History of colonic polyps Chronic fatigue Carpal tunnel syndrome Daytime hypersomnia Autoimmune thyroiditis Fibromyalgia Morbid obesity Spondylosis, thoracic, 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 spine without myelopathy History of ulcer disease Sessile colonic polyp Obesity Tracee's disease residential (current) use of insulin Diabetic nephropathy associated with type 2 diabetes mellitus Diabetic retinopathy associated with type 2 diabetes mellitus Diabetic polyneuropathy associated with type 2 diabetes mellitus Iron (Fe) deficiency anemia History of Graves' disease Lumbar degenerative disc disease Back pain Anxiety and depression GERD (gastroesophageal reflux disease) Asthma Hyperlipidemia Hypertension Diabetes mellitus Polyarthralgia Surgical History History of abdominal surgery History of brachioplasty S/P brachioplasty S/P panniculectomy History of surgical procedure History of carpal tunnel surgery of right wrist H/O endoscopy History of cataract extraction History of lumpectomy of left breast History of carpal tunnel surgery of left wrist Hx of section Hx laparoscopic cholecystectomy Hx of esophagogastroduodenoscopy Hx of colonoscopy H/O gastric bypass Family History Father Diabetes Hypertension Mother Diabetes Hypertension Maternal Grandmother Colon cancer Paternal Aunt Cancer of ear Social History Household Members: Family Housing: House Are you a primary lawn care professional to a significant other at home: No Do you presently have visiting nurse or other home services: No Alcohol intake: never Patient Tobacco Use Status: Former Tobacco user Tobacco use type: Cigarette Cigarette Packs Per Day: 1 Years Smoked: 20 e-Cigarette/Vaping Use: Never Used Second Hand Smoke Exposure: Yes service: No Current occupational status: disabled Current occupation: right hand dominant Cognitive needs: No Hearing needs: No Vision needs: Yes Female Reproductive History Menstrual Age of Menarche: 14 Physical Exam Const General: cooperative, comfortable and no acute distress Orientation/consciousness: patient oriented x3 GI Other: soft, nontender, nondistended, incisions with open area at center approx 1.2x0.3cm, superficial, no drainage or erythema surrounding, drain site closed Skin Other: bilateral brachioplasty incisions healing well, no open areas or erythema Neuro General: patient oriented x3 Assessment & Plan Assessment & Plan (1) S/P panniculectomy: Code(s): Z98.890 - Other specified postprocedural states Category: Surgical (2) S/P brachioplasty: Code(s): Z98.890 - Other specified postprocedural states Category: Surgical Plan Continue high protein diet. DSD to cover open area of panniculectomy incision, leave remainder open to air with steri strips. Arms open to air. Abdominal binder at all times except for care. No walking outside or exercise for 6 weeks minimum. Walking in the house ok. No lifting greater than 10 pounds x 2 months and no abdominal exercises x 3 months. 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 We will continue to monitor appearance of abdomen which is improving, no palpable collection/seroma at this time. RTC 1 week.
[2025-02-02 15:44] VITALS: BP 175/85; PULSE 78; TEMP 36.1; O2SAT 97; BMI 25.1
--- OUTSIDE RECORDS SUMMARY | 2025-02-02 23:50 | XMS_ITS | Clinical Summary ---
Author Organization [address] [facility] Address [address] [place] [address] Phone Care Team Providers Care Mine Superintendent Name Role Phone Analilia Schumacher MD Primary Care Provider [phone] Allergies No known active allergies Medications acetaminophen [...] of great toe 10/07/2024 Peripheral vascular disease 10/07/2024 Cellulitis 10/07/2024 Uncontrolled type 2 diabetes mellitus with hyper glycemia 10/07/2024 Onychomycosis 10/07/2024 Vitamin D deficiency 10/07/2024 Type 2 diabetes mellitus 10/07/2024 Left ankle pain 10/07/2024 B12 deficiency 10/07/2024 Left leg pain 10/07/2024 Acid reflux 10/07/2024 History of colonic polyps 10/07/2024 Chronic fatigue 10/07/2024 Carpal tunnel syndrome 10/07/2024 Daytime hypersomnia 10/07/2024 Autoimmune thyroiditis 10/07/2024 Fibromyalgia 10/07/2024 Morbid obesity 10/07/2024 Spondylosis 10/07/2024 History of ulcer disease 10/07/2024 Sessile colonic polyp 10/07/2024 [facility] (current) use of insulin 10/07/2024 Encounters Date Type Department Care Team Description 01/24/2025 1:15 PM EST Office Visit Orthopedic Surgery - [address] [phone] Kali Artis, DPM Chronic osteomyelitis of hindfoot, right (CMS/HCC V24, CMS/HCC V28) (Primary Dx); Ulcer of toe of right foot, with necrosis of bone (CMS/HCC V24, CMS/HCC V28); Corns and callosities; Type II diabetes mellitus with peripheral circulatory disorder ([facility] V24, CMS/HCC V28); Diabetic mononeuropathy simplex (CMS/[facility] V24, CMS/HCC V28); Follow-up exam 01/10/2025 9:15 AM EST Office Visit Orthopedic Surgery [facility] [address] [phone] Kali Artis DPM Chronic osteomyelitis of hindfoot, right (CMS/[facility] V24, CMS/[facility] V28) (Primary Dx); Right foot pain; Acute osteomyelitis of right ankle or foot (CMS/HCC V24, CMS/HCC V28); Ulcer of toe of right foot, with necrosis of bone (CMS/[facility] V24, CMS/HCC V28) from Last 3 Months [...] 2:45 PM EST Office Visit Orthopedic Surgery [facility] [address] [phone] Kali Artis DPM [address] [phone] Health Maintenance Due Date Last Done Comments [...] taken earlier last month us Kali Artis DPReyna IMG XR PROCEDURES Final R esult from Last 3 Months Insurance MEDICAID - [place] [facility] Care Teams Mine Superintendent Relationship Specialty Start Date End Date Analilia Schumacher MD [address] [place] [address] , [address] [place] [address] Physician Associ D/B/A: [facility] [place], [place] PCP - General Internal Medicine 12/22/17
== END 2025-02-02 16:07 | disposition home or self-care (01) ==
LOC: HO.HBS 15:19
PROVIDERS: PCP Internal Medicine; Visit Provider Physician Assistant Surgical
DX: E66.3 Overweight (principal); Z68.25 Body mass index [BMI] 25.0-25.9, adult; Z71.3 Dietary counseling and surveillance; Z98.890 Other specified postprocedural states
CPT/HCPCS: 99024

== ENCOUNTER → 2025-02-02 15:18 | Outpatient (BNVA) | payer OTHER, SELFPAY | PROVIDERS: PCP Internal Medicine; Visit Provider Physician Assistant Surgical | DX: Z48.815 Encounter for surgical aftercare following surgery on the digestive system (principal); Z98.890 Other specified postprocedural states | CPT/HCPCS: 99212 ==

== ENCOUNTER 2025-02-09 13:53 | Outpatient (AMB) | payer OTHER, SELFPAY ==
--- OUTSIDE RECORDS SUMMARY | 2025-02-08 14:45 | XMS_ITS | Encounter Summary ---
Author Organization [facility] Address [id number] [place] [phone] Care Team Providers Care [employer] Ha[employer] Truck Driver Name Role Phone Analilia Schumacher MD Primary Care Provider [phone] Encounter Details Date Type Department Care Team (Late st Contact Info) Description 02/08/2025 2:45 PM EST Office Visit Orthopedic Surgery - [place] [address] [phone] Kali Artis, DPM [address] [phone] Chronic osteomyelitis of hindfoot, right (CMS/HCC V24, CMS/HCC V28) (Primary Dx); Follow-up exam; Ulcer of toe of right foot, with fat layer exposed (CMS/HCC V24, CMS/HCC V28); Primary osteoarthritis of both feet Social History Tobacco Use Types Packs/Day Years Used Date Smoking Tobacco: Never Assessed Comments Unknown Sex and Gender Information Value Date Recorded Sex Assigned at Not on file Legal Sex Female 10:48 PM EST Gender Identity Not on file Sexual Orientation Not on file documented as of this encounter Last Filed Vital Signs Vital Sign Reading Time Taken Comments Blood Pressure - - Pulse - - Temperature - - Respiratory Rate - - Oxygen Saturation - - Inhaled Oxygen Concentration - - Weight 75.8 kg (167 lb 1.7 oz) 02/08/2025 2:14 P M EST Height 175.3 cm (5' 9.02 ) 02/08/2025 2:14 PM ES T Body Mass Index 24.67 02/08/2025 2:14 PM EST documented in this encounter Ordered Prescriptions Prescription Sig Dispense Quantity Refills Last Filled Start Date End Date diclofenac (Voltaren Arthritis Pain) 1 % topical gel Apply 4 g topically 2 (two) times a day. 240 g 1 02/08/2025 documented in this encounter Progress Notes * Kali Artis DPM - 02/08/2025 2:45 PM ESTAddended by: KALI ARTIS on: 02/08/2025 07:05 PM Modules accepted: Orders * Kali Artis DPM - 02/08/2025 2:45 PM EST Last PCP visit:Referring MD: Analilia Schumacher MD 07/15/2024 S Patient presented for evaluation states she has a chronic ulceration on the tip for right second toe has finished course of oral antibiotics prescribed redness swelling has resolved continues to havewound on the tip of the right second toe Interpretation services were offered patient declined utilized her [...] Bunion of great toe Peripheral vascular disease ([facility] V24) Cellulitis Uncontrolled type 2 diabetes mellitus with hyperglycemia ([facility] V24, [facility] V28) Onychomycosis Vitamin D deficiency Type 2 diabetes mellitus ([facility] V24, [facility] V28) Left ankle pain B12 deficiency Left leg pain Acid reflux History of colonic polyps Chronic fatigue Carpal tunnel syndrome Daytime hypersomnia Autoimmune thyroiditis Fibromyalgia Morbid obesity ([facility] V24, [facility] V28) Spondylosis History of ulcer disease Sessile colonic polyp jail (current) use of insulin ([facility] V24, [facility] V28) SOCIAL HISTORY: Social History Tobacco Use Smoking status: Not on file Smokeless tobacco: Not on file Substance Use Topics Alcohol use: Not on file ACTIVE MEDICATIONS: No outpatient medications have been marked as taking for the 02/08/25 encounter (Office Visit) withChristopher M Artis, DPM. ALLERGIES: No Known Allergies PHYSICAL EXAM: Visit Vitals Ht 1.753 m (69.02 ) Wt 75.8 kg (167 lb 1.7 oz) BMI 24.67 kg/m?? BSA 1.91 m?? PODIATRIC EXAMINATION: GENERAL: Patient appears well nourished, [...] measuring 7 mm x 5 mm x 2-3 mm mm subcutaneous tissue exposed BIOMECHANICS: Ankle ROM WNL, STJ ROM wnl, MTJ ROM diffuse arthritis midtarsal joint bilateral, 1st MPJ ROM tracking bunion deformity bilaterally hammertoe contractures 2 through 5. IMAGING: Radiographs reviewed concerning for osteomyelitis of the tip of the right second distal phalanx IMPRESSION: 1. Chronic osteomyelitis of hindfoot, right ([facility] V24, [facility] V28) 2. Follow-up exam 3. Ulcer of toe of right foot, with fat layer exposed ([facility] V24, [facility] V28) PLAN: Pt was seen and examined, history reviewed. Radiographs taken reviewed no new erosions from previous radiographs taken Patient finished course of doxycycline 4-week course left p.o. antibiotics I still strongly recommend the patient distal Symes amputation for definitive removal of [...] answered New x-ray ordered right foot 3 Voltaren gel prescribed for arthritis of both feet Follow-up provided in 2 to 4 weeks Open wound Open wound selective excisional debridement of devitalized soft tissue, fibrin, epidermis, dermis, thru skin and subcutaneous tissue centrally, first 20 sq cm or less, using sterile sharp dissection #15 scalpel blade. Pt. deferred anesthesia. . Devitalized tissue was not sent to pathology. Kali Artis DPM documented in this encounter Plan of Treatment Upcoming Encounters Date Type Department Care Team (Late st Contact Info) Description 03/22/2025 8:30 AM EST Office Visit Orthopedic Surgery - [place] [address] [phone] Kali Artis DPM [address] [phone] documented as of this encounter Results * XR Foot 3+ Views Right (02/08/2025 2:37 PM EST) Anatomical Region Laterality Modality Lower Extremities, Foot Right Computed Radiography Narrative 02/08/2025 7:03 PM EST Right foot 3 views erosion of the distal phalanx of the right second digit noted without significant changes from radiographs taken on 01/24/2025 us Kali Artis DPM IMG XR PROCEDURES Final R esult documented in this encounter Visit Diagnoses Diagnosis Chronic osteomyelitis of hindfoot, right ([facility] V24, [facility] V28)- Primary Follow-up exam Unspecified follow-up examination Ulcer of toe of right foot, with fat layer exposed ([facility] V24, [facility] V28) Primary osteoarthritis of both feet documented in this encounter Care Teams [employer] Truck Driver Relationship Specialty Start Date End Date Analilia Schumacher MD [address] [place] [address] , [facility] [address] [facility] Physician Associ D/B/A: [facility] [place] PCP - General Internal Medicine 10/29/18 documented as of this encounter
--- NOTE | 2025-02-09 13:57 | A.OFFVIS_ITS ---
VS Expanded 02/09/25 14:08 BP 163/84 H Blood Pressure Location Lt brachial Blood Pressure Position Sitting Pulse 75 Pulse Source Pulse Oximeter Temp 97.3 F Pulse Oximetry 99 Oxygen Delivery Method Room Air Height 5 ft 9 in Weight 166 lb 6 oz BMI 24.6 Body Fat % 24.9 Body Fat Mass 41.4 Fat Free Mass 125.0 Visceral Fat Rating 4.0 Body Water % 53.5 Body Water Mass 89.0 Muscle Mass/Score 118.6 Basal Metabolic Rate/Score 1,650 Intake Visit Reasons: OV PO Panni + Brachio 12/30/24 Route Sales Manager Required: Yes Route Sales Manager Name: Evangelist Sharpe [id number] Information Interpreted: clinical only Allergies adhesive tape (ADHESIVE TAPE) Allergy (Intermediate, Verified 02/02/25 15:46) RASH pioglitazone (From ACTOS) Allergy (Intermediate, Verified 02/02/25 15:46) facial edema,rash latex Allergy (Mild, Verified 02/02/25 15:46) Rash Medication List - Last Reconciled 02/09/25 by TAHMINA Anne acetone (urine) test (Ketone Urine Test strips) As directed glucose over 300, illness, nausea, vomiting t.i.d. blood pressure kit-extra large As directed blood sugar diagnostic (FreeStyle Lite Strips) TEST 4 TIMES DAILY blood-glucose meter (FreeStyle Lite Meter kit) TEST 4 TIMES DAILY cane As directed cholecalciferol (vitamin D3) 50 mcg PO DAILY 90 days citalopram 10 mg PO DAILY cyanocobalamin (vitamin B-12) 1,000 mcg sublingual DAILY docusate sodium (Colace) 100 mg PO DAILY ergocalciferol (vitamin D2) 1,250 mcg PO QWEEK 90 days escitalopram oxalate 10 mg PO DAILY fluocinolone acetonide oil 0.01% (DermOtic Oil) 5 drps otic (ears) BID 7 days folic acid 1 mg PO DAILY furosemide 20 mg PO BID 90 days glucagon 3 mg/actuation (Baqsimi) 3 mg intranasal .prn PRN 30 days MDD 6 mg insulin degludec (Tresiba FlexTouch U-200 insulin) 75 units (0.375 mL) subcut BEDTIME 90 days insulin regular hum U-500 conc (Humulin R U-500 (Concentrated) Insulin) up to 425 units per day via pump subcutaneously use as directed insulin syringe-needle U-100 (Advocate Syringes) Use 1 needle once a month lidocaine 5% (Lidoderm) 1 patch topical DAILY PRN MDD remove after 12 hours lisinopril 10 mg PO DAILY montelukast 10 mg PO DAILY 90 days naloxone 4 mg/actuation (Narcan) 4 mg intranasal Q2M PRN 30 days nebulizers (AeroEclipse II Nebulizer) As directed ondansetron 4 mg PO Q12H oxycodone-acetaminophen 5-325 mg 1 tab PO Q8H PRN 30 days pantoprazole 40 mg PO DAILY 30 days pen needle, diabetic As directed qid prn pump failure pen needle, diabetic (Comfort EZ Pen [place]) As directed once daily, prn pump failure can increase to qid pen needle, diabetic (Comfort EZ Pen [place]) As directed daily: In the event a pump failure use up to q.i.d. rosuvastatin 40 mg PO DAILY 90 days Shower Chair As directed [skin tac apply to skin at pump site and sensor site after cleansing with alcohol.Insert pump cannula/sensor after skin tac has allowed to dry. Use on pump every three days, every 10 at sensor site.] syringe with needle (Cloudbuild Luer Slip Syringe-Needle) For vitamin B12 injection syringe with needle, safety (BD Safety-Jone Detachable Needle) Use 1 syringe once a month tirzepatide (Mounjaro) 15 mg (0.5 mL) subcut QWEEK 28 days trazodone 25 - 50 mg PO BEDTIME PRN HPI Comments Details: Pt is 7w s/p panniculectomy and bilateral brachioplasty 12/30/2024. No fevers at home. Wearing binder at all times. Following meal plan. Pt notes the swelling on left side of abdomen under incision has decreased. She has been using DSD over small open area of panniculectomy incision. However the gauze has been getting stuck to wound and sometimes she notices some red spots on old gauze. [facility] Medical History Postgastrectomy malabsorption Bunion of great toe Peripheral vascular disease of lower extremity Cellulitis Uncontrolled type 2 diabetes mellitus with hyperglycemia Physical exam Cellulitis of toe of right foot Hospital discharge follow-up Goiter Onychomycosis Vitamin D deficiency T2DM (type 2 diabetes mellitus) Left ankle pain B12 deficiency Left leg pain Acid reflux History of colonic polyps Chronic fatigue Carpal tunnel syndrome Daytime hypersomnia Autoimmune thyroiditis Fibromyalgia Morbid obesity Spondylosis, thoracic, 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 spine without myelopathy History of ulcer disease Sessile colonic polyp Obesity Tracee's disease snf (current) use of insulin Diabetic nephropathy associated with type 2 diabetes mellitus Diabetic retinopathy associated with type 2 diabetes mellitus Diabetic polyneuropathy associated with type 2 diabetes mellitus Iron (Fe) deficiency anemia History of Graves' disease Lumbar degenerative disc disease Back pain Anxiety and depression GERD (gastroesophageal reflux disease) Asthma Hyperlipidemia Hypertension Diabetes mellitus Polyarthralgia Surgical History History of abdominal surgery History of brachioplasty S/P brachioplasty S/P panniculectomy History of surgical procedure History of carpal tunnel surgery of right wrist H/O endoscopy History of cataract extraction History of lumpectomy of left breast History of carpal tunnel surgery of left wrist Hx of section Hx laparoscopic cholecystectomy Hx of esophagogastroduodenoscopy Hx of colonoscopy H/O gastric bypass Family History Father Diabetes Hypertension Mother Diabetes Hypertension Maternal Grandmother Colon cancer Paternal Aunt Cancer of ear Social History Household Members: Family Housing: House Are you a primary career development associate to a significant other at home: No Do you presently have visiting nurse or other home services: No Alcohol intake: never Patient Tobacco Use Status: Former Tobacco user Tobacco use type: Cigarette Cigarette Packs Per Day: 1 Years Smoked: 20 e-Cigarette/Vaping Use: Never Used Second Hand Smoke Exposure: Yes service: No Current occupational status: disabled Current occupation: right hand dominant Cognitive needs: No Hearing needs: No Vision needs: Yes Female Reproductive History Menstrual Age of Menarche: 14 Physical Exam Const General: cooperative, comfortable and no acute distress Orientation/consciousness: patient oriented x3 GI Other: soft, nontender, nondistended, incisions healing well with small open area at center of panniculectomy incision- approx 0.4x0.2cm, superficial, no purulent drainage or surrounding erythema Skin Other: brachioplasty incisions healing well, no open areas Neuro General: patient oriented x3 Assessment & Plan Assessment & Plan (1) Gastric bypass status for obesity: Code(s): Z98.84 - Bariatric surgery status Category: Surgical (2) S/P panniculectomy: Code(s): Z98.890 - Other specified postprocedural states Category: Surgical (3) S/P brachioplasty: Code(s): Z98.890 - Other specified postprocedural states Category: Surgical Plan Continue high protein diet. Change to Telfa to cover open area of panniculectomy incision, leave remainder open to air with steri strips. Arms open to air. Abdominal binder at all times except for care. No walking outside or exercise yet- can likely restart after next visit. Walking in the house ok. No lifting greater than 10 pounds x 2 months and no abdominal exercises x 3 months. 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 We will continue to monitor appearance of abdomen which is improving, no palpable collection/seroma at this time. RTC 2 weeks.
[2025-02-09 14:08] VITALS: BP 163/84; PULSE 75; TEMP 36.3; O2SAT 99; BMI 24.6
--- OUTSIDE RECORDS SUMMARY | 2025-02-09 18:28 | XMS_ITS | Clinical Summary ---
Author Organization [address] [facility] Address 175 [place] [address] Phone Care Team Providers Care Dopeman Name Role Phone Analilia Schumacher MD Primary Care Provider [phone] Allergies No known active allergies Medications acetaminophen [...] mouth 1 (one) time each day. Active diclofenac (Voltaren Arthritis Pain) 1 % topical gel Apply 4 g topically 2 (two) times a day. 240 g 1 5 04/09/19 26 Active doxycycline (Vibramycin) 100 mg capsule Take [...] selenium, zinc). 20 capsule 5 01/21/20 25 doxycycline (Vibramycin) 100 mg capsule Take 1 [...] zinc). 28 each 5 02/08/20 25 Active Problems Problem Noted Date Diagnosed [...] ulcer disease 10/07/2024 Sessile colonic polyp 10/07/2024 [facility] (current) use of insulin 10/07/2024 Encounters Date Type Department Care Team Description 02/08/2025 2:45 PM EST Office Visit Orthopedic Surgery - [place] [address] [place] [phone] Kali Artis, DPM Chronic osteomyelitis of hindfoot, right (CMS/HCC V24, CMS/HCC V28) (Primary Dx); Follow-up exam; Ulcer of toe of right foot, with fat layer exposed (CMS/HCC V24, CMS/HCC V28); Primary osteoarthritis of both feet 01/24/2025 1:15 PM EST Office Visit Orthopedic Surgery [place] [address] [phone] Kali Artis DPM Chronic osteomyelitis of hindfoot, right (CMS/HCC V24, CMS/HCC V28) (Primary Dx); Ulcer of toe of right foot, with necrosis of bone (CMS/HCC V24, CMS/HCC V28); Corns and callosities; Type II diabetes mellitus with peripheral circulatory disorder (CMS/HCC V24, CMS/HCC V28); Diabetic mononeuropathy simplex (CMS/HCC V24, CMS/HCC V28); Follow-up exam 01/10/2025 9:15 AM EST Office Visit Orthopedic Surgery [place] [address] [phone] Kali Artis DPM Chronic osteomyelitis of hindfoot, [...] Mass Index 24.67 02/08/2025 2:14 PM EST Plan of Treatment Upcoming Encounters Date Type Department Care Team (Late st Contact Info) Description 03/22/2025 8:30 AM EST Office Visit Orthopedic Surgery - [place] 250 175 [facility] [address] [place] [address] Kali Artis, DPM 175 [facility] [address] [place] [address] Health Maintenance Due Date Last Done Comments Breast Cancer Screening 1976 Colorectal Cancer Screening: Colonoscopy 1976 Diabetes: Annual GFR (Glomerular Filtration Rate) 1976 Drug Screen 1976 Opioid Substance Agreement 1976 Pain Assessment 1976 Diabetes: Annual Foot Exam 1986 Diabetes: [...] 2024 12/23/2023, 02/12/2023, 11/22/2021, Additional history exists Hypertension/CHF/CAD Annual BMP Blood Test 02/08/2025 Naloxone Order 11/22/2025 11/22/2024 DTaP,Tdap,and Td Vaccines (2 - Td or [...] Comments XR FOOT 3+ VIEWS RIGHT Routine 02/08/2025 2:37 PM EST Follow-up exam XR FOOT 3+ VIEWS RIGHT Routine 01/24/2025 1:37 PM EST Follow-up exam XR FOOT 3+ VIEWS RIGHT Routine 01/10/2025 9:13 AM EST Right foot pain from Last 3 Months Results * XR Foot 3+ Views Right (02/08/2025 2:37 PM EST) Only the most recent of3 resultswithin the time period is included. Anatomical Region Laterality Modality Lower Extremities, Foot Right Computed Radiography Narrative 02/08/2025 7:03 PM EST Right foot 3 views erosion of the distal phalanx of the right second digit noted without significant changes from radiographs taken on 01/24/2025 Kali Artis DPM IMG XR PROCEDURES Final R esult from Last 3 Months Insurance [place]ICAID - [place] [facility] [employer] Care Teams Dopeman Relationship Specialty Start Date End Date Analilia Schumacher MD [address] [place] [address] , [address] [facility] Physician Associ D/B/A: [facility] [place] Fu[place] PCP - General Internal Medicine 12/22/17
== END 2025-02-09 14:32 | disposition home or self-care (01) ==
LOC: HO.HBS 13:54
PROVIDERS: PCP Internal Medicine; Visit Provider Physician Assistant Surgical
DX: Z71.3 Dietary counseling and surveillance (principal); Z98.890 Other specified postprocedural states; Z98.84 Bariatric surgery status
CPT/HCPCS: 99024

== ENCOUNTER → 2025-02-09 13:53 | Outpatient (BNVA) | payer OTHER, SELFPAY | PROVIDERS: PCP Internal Medicine; Visit Provider Physician Assistant Surgical | DX: Z48.815 Encounter for surgical aftercare following surgery on the digestive system (principal); Z98.84 Bariatric surgery status; Z98.890 Other specified postprocedural states | CPT/HCPCS: 99212 ==

== ENCOUNTER 2025-02-21 08:17 | Outpatient (AMB) | payer OTHER, SELFPAY ==
--- OUTSIDE RECORDS SUMMARY | 2025-02-21 08:19 | XMS_ITS | Clinical Summary ---
Author Organization [facility] Facility Address [address] [place] [id number] Care Team Providers Care Aviation Technical Systems Specialist Name Role Phone Analilia Chaidez MD Primary Care Provider [phone] Allergies Active Allergy Reactions Criticality Noted Date [...] this topic Insurance Medicaid Medicaid Care Teams Aviation Technical Systems Specialist Relationship Specialty Start Date End Date Analilia Chaidez MD [address] [place], [place] PCP - General 03/06/20
--- OUTSIDE RECORDS SUMMARY | 2025-02-21 08:20 | XMS_ITS | Clinical Summary ---
Author Organization 175 [facility] Address 175 [place] [address] Phone Care Team Providers Care Medical Assisting Program Director Name Role Phone Analilia Schumacher MD Primary Care Provider [phone] Allergies No known active allergies Medications acetaminophen [...] ulcer disease 10/07/2024 Sessile colonic polyp 10/07/2024 snf (current) use of insulin 10/07/2024 Encounters Date Type Department Care Team Description 02/08/2025 2:45 PM EST Office Visit Orthopedic Surgery [place] [address] [phone] Kali Artis DPM Chronic osteomyelitis of hindfoot, right (CMS/HCC V24, CMS/HCC V28) (Primary Dx); Follow-up exam; Ulcer of toe of right foot, with fat layer exposed (CMS/HCC V24, CMS/HCC V28); Primary osteoarthritis of both feet 01/24/2025 1:15 PM EST Office Visit Orthopedic Surgery [facility] [address] [phone] Kali Artis DPM Chronic osteomyelitis of hindfoot, right (CMS/HCC V24, CMS/HCC V28) (Primary Dx); Ulcer of toe of right foot, with necrosis of bone (CMS/HCC V24, CMS/HCC V28); Corns and callosities; Type II diabetes mellitus with peripheral circulatory disorder (CMS/HCC V24, CMS/HCC V28); Diabetic mononeuropathy simplex (CMS/HCC V24, CMS/HCC V28); Follow-up exam 01/10/2025 9:15 AM EST Office Visit Orthopedic Surgery [place] [address] [phone] Kali Artis DPM Chronic osteomyelitis of hindfoot, [...] 8:30 AM EST Office Visit Orthopedic Surgery [place] [address] [phone] Kali Artis DPM [address] [phone] Health Maintenance Due Date Last Done Comments [...] R esult from Last 3 Months Insurance [address] [place] [address] [place] - [place] [facility] Care Teams Medical Assisting Program Director Relationship Specialty Start Date End Date Analilia Schumacher MD 2 [facility] , [address] [place] [address] Physician Associ D/B/A: [facility] [place] Fuentes PCP - General Internal Medicine 12/22/17
--- NOTE | 2025-02-21 08:41 | MHC.OFFVISWM ---
VS Expanded 02/21/25 08:46 BP 181/83 H Blood Pressure Location Rt brachial Blood Pressure Position Sitting Pulse 60 Pulse Source Pulse Oximeter Temp 97.8 F Temperature Source Temporal Artery Scan Pulse Oximetry 97 Oxygen Delivery Method Room Air Height 5 ft 9 in Weight 159 lb 12.8 oz BMI 23.6 Body Fat % 26.2 Body Fat Mass 41.8 Fat Free Mass 117.8 Visceral Fat Rating 5.0 Body Water % 52.5 Body Water Mass 83.8 Muscle Mass/Score 111.8 Basal Metabolic Rate/Score 1,560 Intake Visit Reasons: OV PO Panni + Brachio 12/30/24 Die Engraving Supervisor Required: Yes Die Engraving Supervisor Services: Die Engraving Supervisor Present Die Engraving Supervisor Name: Hanny Lam [phone] Information Interpreted: clinical only Allergies adhesive tape (ADHESIVE TAPE) Allergy (Intermediate, Verified 02/21/25 08:49) RASH pioglitazone (From ACTOS) Allergy (Intermediate, Verified 02/21/25 08:49) facial edema,rash latex Allergy (Mild, Verified 02/21/25 08:49) Rash Medication List - Last Reconciled 02/21/25 by Emiliana Neal CNP acetone (urine) test (Ketone Urine Test strips) As directed glucose over 300, illness, nausea, vomiting t.i.d. blood pressure kit-extra large As directed blood sugar diagnostic (FreeStyle Lite Strips) TEST 4 TIMES DAILY blood-glucose meter (FreeStyle Lite Meter kit) TEST 4 TIMES DAILY cane As directed cholecalciferol (vitamin D3) 50 mcg PO DAILY 90 days citalopram 10 mg PO DAILY cyanocobalamin (vitamin B-12) 1,000 mcg sublingual DAILY docusate sodium (Colace) 100 mg PO DAILY ergocalciferol (vitamin D2) 1,250 mcg PO QWEEK 90 days fluocinolone acetonide oil 0.01% (DermOtic Oil) 5 drps otic (ears) BID 7 days folic acid 1 mg PO DAILY furosemide 20 mg PO BID 90 days glucagon 3 mg/actuation (Baqsimi) 3 mg intranasal .prn PRN 30 days MDD 6 mg insulin degludec (Tresiba FlexTouch U-200 insulin) 75 units (0.375 mL) subcut BEDTIME 90 days insulin regular hum U-500 conc (Humulin R U-500 (Concentrated) Insulin) up to 425 units per day via pump subcutaneously use as directed insulin syringe-needle U-100 (Advocate Syringes) Use 1 needle once a month lidocaine 5% (Lidoderm) 1 patch topical DAILY PRN MDD remove after 12 hours lisinopril 10 mg PO DAILY montelukast 10 mg PO DAILY 90 days naloxone 4 mg/actuation (Narcan) 4 mg intranasal Q2M PRN 30 days nebulizers (AeroEclipse II Nebulizer) As directed ondansetron 4 mg PO Q12H oxycodone-acetaminophen 5-325 mg 1 tab PO Q8H PRN 30 days pantoprazole 40 mg PO DAILY 30 days pen needle, diabetic As directed qid prn pump failure pen needle, diabetic (Comfort EZ Pen Gloster) As directed once daily, prn pump failure can increase to qid pen needle, diabetic (Comfort EZ Pen Gloster) As directed daily: In the event a pump failure use up to q.i.d. rosuvastatin 40 mg PO DAILY 90 days Shower Chair As directed [skin tac apply to skin at pump site and sensor site after cleansing with alcohol.Insert pump cannula/sensor after skin tac has allowed to dry. Use on pump every three days, every 10 at sensor site.] syringe with needle (E-Line Media Luer Slip Syringe-Needle) For vitamin B12 injection syringe with needle, safety (BD Safety-Jone Detachable Needle) Use 1 syringe once a month tirzepatide (Mounjaro) 15 mg (0.5 mL) subcut QWEEK 28 days trazodone 25 - 50 mg PO BEDTIME PRN HPI Comments Details: 49 year old woman s/p panniculectomy and bilateral brachioplasty 12/30/2024 presents for 8 week post op visit. S/P GBP on?07/20/[address] Sanders Wearing abd binder at all times. Pt notes the swelling on left side of abdomen under incision has decreased. She has been using DSD over small open area of panniculectomy incision, and states is seems closed now. No drainage or fevers. Post op meal plan per Dr. Topete: TWO 4oz of Fairlife mixed with 4oz almond milk at 6am-8am and 9am-11am, one Pure protein bar at 12pm-2pm, another 4oz of Fairlife mixed with 4oz almond milk at?3pm-5pm, dinner at 6pm (4 forks of meat or fish and 4 forks of salad or vegetables) and one more 4oz of Fairlife mixed with 4oz almond milk at 8pm-10pm. She is not drinking the protein shakes because she was mixing with oat milk, which made her nauseous. She also tried almond milk and soy milk, and did not like those either. 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 [facility] [employer] Medical History Postgastrectomy malabsorption Bunion of great toe Peripheral vascular disease of lower extremity Cellulitis Uncontrolled type 2 diabetes mellitus with hyperglycemia Physical exam Cellulitis of toe of right foot Hospital discharge follow-up Goiter Onychomycosis Vitamin D deficiency T2DM (type 2 diabetes mellitus) Left ankle pain B12 deficiency Left leg pain Acid reflux History of colonic polyps Chronic fatigue Carpal tunnel syndrome Daytime hypersomnia Autoimmune thyroiditis Fibromyalgia Morbid obesity Spondylosis, thoracic, 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 spine without myelopathy History of ulcer disease Sessile colonic polyp Obesity Tracee's disease halfway (current) use of insulin Diabetic nephropathy associated with type 2 diabetes mellitus Diabetic retinopathy associated with type 2 diabetes mellitus Diabetic polyneuropathy associated with type 2 diabetes mellitus Iron (Fe) deficiency anemia History of Graves' disease Lumbar degenerative disc disease Back pain Anxiety and depression GERD (gastroesophageal reflux disease) Asthma Hyperlipidemia Hypertension Diabetes mellitus Polyarthralgia Surgical History History of abdominal surgery History of brachioplasty S/P brachioplasty S/P panniculectomy History of surgical procedure History of carpal tunnel surgery of right wrist H/O endoscopy History of cataract extraction History of lumpectomy of left breast History of carpal tunnel surgery of left wrist Hx of section Hx laparoscopic cholecystectomy Hx of esophagogastroduodenoscopy Hx of colonoscopy H/O gastric bypass Family History Father Diabetes Hypertension Mother Diabetes Hypertension Maternal Grandmother Colon cancer Paternal Aunt Cancer of ear Social History Household Members: Family Housing: House Are you a primary memory care program director to a significant other at home: No Do you presently have visiting nurse or other home services: No Alcohol intake: never Patient Tobacco Use Status: Former Tobacco user Tobacco use type: Cigarette Cigarette Packs Per Day: 1 Years Smoked: 20 e-Cigarette/Vaping Use: Never Used Second Hand Smoke Exposure: Yes service: No Current occupational status: disabled Current occupation: right hand dominant Cognitive needs: No Hearing needs: No Vision needs: Yes Female Reproductive History Menstrual Age of Menarche: 14 Physical Exam Exam Exam: abd soft, non-tender, non-distended, umbilicus is well healed. Panniculectomy incision previously with small open area at center, now scabbed over. Superficial, no purulent drainage or surrounding erythema. bilateral arms with well healed brachioplasty incisions. Vital Signs: Last Vital Signs Temp 97.8 F 02/21/25 08:46 Pulse 60 02/21/25 08:46 BP 181/83 H 02/21/25 08:46 Pulse Ox 97 02/21/25 08:46 Oxygen Delivery Method Room Air 02/21/25 08:46 BMI result Body Mass Index 23.6 Const General: cooperative, healthy appearing, comfortable and no acute distress Orientation/consciousness: patient oriented x3 Neuro General: patient oriented x3 Assessment & Plan Assessment & Plan (1) S/P panniculectomy: Code(s): Z98.890 - Other specified postprocedural states Category: Surgical Plan: Plan: - She is likely not getting enough protein in her diet, causing her incision to heal slowly. Goal 65G protein per day. Will update meal plan to 1/2 Fairlife protein shake (6oz) mixed with 2oz milk of her choice from 9am-11am. Lunch 12-2pm is one Pure protein bar, cut into 4 pieces, 1 piece every 30 mins. 3-5pm other 1/2 of the Fairlife shake (5.5oz) with 2.5oz milk of her choice. Dinner the same, 4 FF meat, 4 FF veggies. Water, gatorade zero, or diet soda throughout the day for liquids. - Recommend compressive garment until 3 months post op. She can buy a different one if desired. - Scabbed area on panniculectomy incision should be covered to prevent rubbing/irritation from binder. Could try bandaid instead of gauze/tape due to skin irritation and allow air flow. - She is just about 8 weeks post op, and can now increase her exercise including cardio (elliptical, stationary bike, treadmill) and can slowly increase her lifting. Still no abdominal exercises until 3 months post op. - Referral to plastic surgery for breasts consult and given the information. - Patient texted the meal plan from my work phone and encouraged to reach out with any questions/concerns regarding meal plan, incision, or anything else before next appt. I also recommended she reach out to her PCP regarding her high BP. Follow up: 1 month (2) S/P brachioplasty: Code(s): Z98.890 - Other specified postprocedural states Category: Surgical Plan: . (3) Gastric bypass status for obesity: Code(s): Z98.84 - Bariatric surgery status Category: Surgical Plan: . Orders: Referrals Plastic Surgery Referral Z98.84 - Bariatric surgery status, Z98.890 - Other specified postprocedural states
[2025-02-21 08:46] VITALS: BP 181/83; PULSE 60; TEMP 36.6; O2SAT 97; BMI 23.6
== END 2025-02-21 09:57 | disposition home or self-care (01) ==
LOC: HO.HBS 08:17
PROVIDERS: PCP Internal Medicine; Visit Provider Nurse Practitioner
DX: Z71.3 Dietary counseling and surveillance (principal); Z98.890 Other specified postprocedural states
CPT/HCPCS: 99024

== ENCOUNTER → 2025-02-21 08:17 | Outpatient (BNVA) | payer OTHER, SELFPAY | PROVIDERS: PCP Internal Medicine; Visit Provider Nurse Practitioner | DX: Z48.815 Encounter for surgical aftercare following surgery on the digestive system (principal); I10 Essential (primary) hypertension; Z98.890 Other specified postprocedural states; Z98.84 Bariatric surgery status | CPT/HCPCS: 99212 ==